=== PATIENT | female | born 1945 | race Caucasian/White ===

== ENCOUNTER 2017-02-26 13:14 | Emergency (ER) | payer MEDICARE, OTHER ==
[2017-02-26 13:24] VITALS: TEMP 98.8
[2017-02-26 13:44] LABS: Appearance,Urine Clear (Clear); Bilirubin,Urine Negative (Negative); Glucose,Urine (UA) Negative (Negative); Ketones,Urine Negative (Negative); Leukocyte Esterase,Urine Small (Negative); Nitrite,Urine Negative (Negative); PH, Urine 6.5 (5.0-8.0); Particle Count 1022; Protein,Urine Negative (Negative); RBC,Urine 1 /hpf (0-5); Squamous Epithelial Cell,Urine 5 /hpf (0-4); UA Billing (MACRO vs. MICRO) MICRO; Urobilinogen,Urine <2.0 mg/dL (<2.0); WBC,Urine 4 /hpf (0-5)
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
--- NOTE | 2017-02-26 14:41 | CT ---
EXAMINATION TYPE: CT brain adolfo wo con DATE OF EXAM: 02/26/2017 COMPARISON: June 03, 2014 HISTORY: Patient complains of repeated falls, headache, and neck pain. CT DLP: 1027.[address] of the brain was performed. The ventricles, basal cisterns and sulci overlying the cerebral convexities demonstrate mild enlarge ment. There is no evidence for intracranial hemorrhage or sulcal effacement. There is decreased attenuatio n about the periventricular white matter and deep white matter of both cerebral hemispheres, compatib le with chronic small vessel ischemia. No mass effects are seen. If symptoms persist consider MRI. Osseous calvarium is intact. Mucosal thickening sphenoid sinus. IMPRESSION: 1. Age related atrophic and chronic small vessel ischemic change without acute intracranial process seen at this time. CT Cervical Spine: Unenhanced CT of the cervical spine was performed with bone and soft tissue window settings submitted . Coronal and sagittal reconstruction is obtained. Type III odontoid fracture which extends through the odontoid and into the lateral masses of C2. No d isplacement evident at this time. No additional fractures identified. Anterior subluxation of C5 on C 6 appears to be chronic in nature and measures 3 mm. Moderate to severe multilevel degenerative disc space narrowing and spondylosis. IMPRESSION: 1. Type III odontoid fracture which extends through the odontoid and into the lateral masses of C2. No displacement evident at this time. Fracture appears relatively stable. Findings discussed with physician carpenter's assistant Alber Garcia via telephone at the time of exam completi on.
[2017-02-26] MEDS ORDERED: ONDANSETRON 4 MG/2 ML VIAL IVP STA (14:45)
[2017-02-26] MEDS ORDERED: HYDROmorphone 1 MG/ML 1 ML SYRINGE IVP STA (14:45)
[2017-02-26] MEDS ORDERED: HYDROmorphone 0.5 MG/0.5 ML SYRINGE IVP STA (15:22)
[2017-02-26 15:48] LABS: Basophils # (A) 0.1 k/uL (0-0.2); Basophils % (A) 1 %; CH 28.7; CHCM 33.6; Eosinophils # (A) 0.2 k/uL (0-0.7); Eosinophils % (A) 3 %; HDW 2.46; HGB 12.2 gm/dL (11.4-16.0); Luc # (Auto) 0.16; Luc % (Auto) 2; Lymphocytes # (A) 1.4 k/uL (1.0-4.8); Lymphocytes % (A) 19 %; MCH 28.3 pg (25.0-35.0); MCV 85.7 fL (80.0-100.0); Mean Platelet Volume 8.4; Monocytes # (A) 0.3 k/uL (0-1.0); Monocytes % (A) 4 %; Neutrophils # (A) 5.2 k/uL (1.3-7.7); Neutrophils % (A) 71 %; RBC 4.32 m/uL (3.80-5.40); RDW 13.2 % (11.5-15.5); WBC 7.3 k/uL (3.8-10.6); WBC (Perox) 7.17
[2017-02-26 15:52] LABS: ALT 38 U/L (9-52); AST 31 U/L (14-36); Alkaline Phosphatase 97 U/L (38-126); Anion Gap 8 mmol/L; Blood Urea Nitrogen 14 mg/dL (7-17); Calcium 9.3 mg/dL (8.4-10.2); Carbon Dioxide 25 mmol/L (22-30); Chloride 104 mmol/L (98-107); Glucose 93 mg/dL (74-99); Non-African American GFR(MDRD) >60 (>60 ml/min/1.73 sqM); Potassium 4.2 mmol/L (3.5-5.1); Sodium 137 mmol/L (137-145); Total Bilirubin 0.5 mg/dL (0.2-1.3); Total Protein 6.8 g/dL (6.3-8.2)
[2017-02-26 15:56] LABS: INR 1.1 (<1.2); Partial Thromboplastin Time 22.3 sec (22.0-30.0); Prothrombin Time 10.9 sec (9.0-12.0)
--- NOTE | 2017-02-26 16:16 | XR ---
EXAMINATION TYPE: XR Hip LT and AP Pelvis DATE OF EXAM: 02/26/2017 COMPARISON: CT abdomen pelvis 03/22/2016 HISTORY: Trauma and pain TECHNIQUE: AP view of the pelvis is obtained on 2 images. Two views of the left hip are obtained on 3 images. FINDINGS: There is hypertrophic change involving the left hip, subchondral geode formation, flattenin g the femoral head, marginal spurring, loss of joint space is again noted. Bone mineralization is red uced. Postop changes are noted in the lumbar spine. Calcified fibroid present in the right hemipelvis. Phle boliths also noted within the pelvis. IMPRESSION: Osteoarthritis, there may been prior osteonecrosis with femoral head collapse and seconda ry osteoarthritic change. Patient is rotated. Postop changes. Additional findings above.
--- NOTE | 2017-02-26 16:19 | XR ---
Lumbar spine HISTORY: Trauma and pain 3 views of of the lumbar spine correlated to CT abdomen pelvis 03/22/2016 Lumbar vertebral bodies show preserved height and alignment. Screws are present at the posterior [place] ents of L4-5. Loss of disc height present at L4-5 with vacuum phenomenon, marginal spurring. Calcifie d fibroid noted within the pelvis. L1 shows loss of height at the superior endplate, T12 also shows l oss of height superior endplate. T12 superior depression is an interval finding. Bone mineralization is reduced. Sclerosis present in the posterior elements of the lumbar spine. IMPRESSION: Compression fracture at L1 is likely stable, interval superior endplate compression fract ure T12 of indeterminate age. Osteopenia. Degenerative disc disease, facet arthropathy, postop change s.
--- NOTE | 2017-02-26 16:22 | XR ---
Right shoulder HISTORY: Trauma and pain 3 views of the right shoulder There is hypertrophic change at the glenohumeral joint. Acromion shows a lucency, questionable step-o ff. Right lung apex as visualized is normal. Facet arthropathy change is noted within the cervical sp ine. Bone mineralization is reduced which may limit sensitivity. IMPRESSION: Difficult to exclude an acromial fracture.
[2017-02-26 16:38] VITALS: BP 146/68; PULSE 56; RESP 16
== END 2017-02-26 17:00 | disposition other institution (70) ==
LOC: EC 13:14
DX: S12.100A Unspecified displaced fracture of second cervical vertebra, initial encounter for closed fracture (principal); S22.019A Unspecified fracture of first thoracic vertebra, initial encounter for closed fracture; S42.121A Displaced fracture of acromial process, right shoulder, initial encounter for closed fracture; M25.552 Pain in left hip; R00.1 Bradycardia, unspecified; I44.0 Atrioventricular block, first degree; J45.909 Unspecified asthma, uncomplicated; I25.10 Atherosclerotic heart disease of native coronary artery without angina pectoris; I50.9 Heart failure, unspecified; E78.5 Hyperlipidemia, unspecified; I11.0 Hypertensive heart disease with heart failure; M19.90 Unspecified osteoarthritis, unspecified site; Z95.5 Presence of coronary angioplasty implant and graft; Z88.0 Allergy status to penicillin; Z91.048 Other nonmedicinal substance allergy status; Z79.1 Long term (current) use of non-steroidal anti-inflammatories (NSAID); Z79.51 Long term (current) use of inhaled steroids; Z79.82 Long term (current) use of aspirin; Z79.899 Other long term (current) drug therapy; W10.9XXA Fall (on) (from) unspecified stairs and steps, initial encounter; Y93.01 Activity, walking, marching and hiking; Y92.019 Unspecified place in single-family (private) house as the place of occurrence of the external cause
CPT/HCPCS: 99285; 96374; 96375; 36415; 93005; 80053; 85025; 85610; 85730; 81001; 87086; 72100; 73502; 73030; 72125; 70450; J2405; J1170

== ENCOUNTER → 2020-07-19 | Outpatient (CLI) | payer MEDICARE, OTHER | END | disposition home or self-care (01) | LOC: LABWHC1 16:48 | PROVIDERS: ATTEND Internal Medicine | DX: Z20.822 Contact with and (suspected) exposure to COVID-19 (principal) | CPT/HCPCS: U0003; C9803 ==

== ENCOUNTER 2020-07-21 12:23 | Inpatient (IN) | payer MEDICARE, OTHER ==
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
--- NOTE | 2020-07-21 14:29 | XR ---
EXAMINATION TYPE: XR chest 2V DATE OF EXAM: 07/21/2020 COMPARISON: Chest x-ray CTA chest June 03, 2014. HISTORY: Difficulty in breathing. TECHNIQUE: Frontal and lateral views of the chest are obtained. FINDINGS: There is chronic parenchymal changes with new patchy left mid lung laterally and right bas ilar opacity. Persistent elevated and eventrated right hemidiaphragm with colonic interposition. The cardiac silhouette size is stable and within normal limits. Spine is straightened on lateral view wit h mild compression type fractures near thoracolumbar junction now present, some interval progression noted. IMPRESSION: Chronic changes with possible earlier faint acute infiltrate left mid lung laterally and right basilar region. Correlate clinically.
[2020-07-21 14:43] LABS: Basophils # (A) 0.1 k/uL (0-0.2); Basophils % (A) 1 %; Eosinophils # (A) 0.1 k/uL (0-0.7); Eosinophils % (A) 1 %; HCT 39.6 % (34.0-46.0); HGB 13.8 gm/dL (11.4-16.0); Lymphocytes # (A) 0.8 k/uL (1.0-4.8); Lymphocytes % (A) 12 %; MCH 29.4 pg (25.0-35.0); MCV 84.1 fL (80.0-100.0); Monocytes # (A) 0.4 k/uL (0-1.0); Monocytes % (A) 6 %; Neutrophils # (A) 5.3 k/uL (1.3-7.7); Neutrophils % (A) 79 %; Platelet Count 235 k/uL (150-450); RBC 4.71 m/uL (3.80-5.40); RDW 13.1 % (11.5-15.5); WBC 6.7 k/uL (3.8-10.6)
[2020-07-21 14:53] LABS: ALT 11 U/L (4-34); AST 29 U/L (14-36); African American GFR (CKD) >90 (>60 ml/min/1.73 sqM); Albumin 3.8 g/dL (3.5-5.0); Alkaline Phosphatase 106 U/L (38-126); Anion Gap 10 mmol/L; Blood Urea Nitrogen 13 mg/dL (7-17); Calcium 9.1 mg/dL (8.4-10.2); Carbon Dioxide 26 mmol/L (22-30); Chloride 104 mmol/L (98-107); Glucose 93 mg/dL (74-99); Non-African American GFR(CKD) 87 (>60 ml/min/1.73 sqM); Sodium 140 mmol/L (137-145); Total Bilirubin 0.6 mg/dL (0.2-1.3); Total Protein 7.1 g/dL (6.3-8.2)
[2020-07-21 15:00] LABS: Partial Thromboplastin Time 22.8 sec (22.0-30.0); Potassium 3.4 mmol/L (3.5-5.1); Prothrombin Time 10.4 sec (9.0-12.0)
--- NOTE | 2020-07-21 16:50 | CT ---
EXAMINATION TYPE: CT chest angio for PE DATE OF EXAM: 07/21/2020 COMPARISON: 06/03/2014 HISTORY: difficulty breathing CT DLP: 287.5 mGycm Automated exposure control for dose reduction was used. CONTRAST: Performed with IV Contrast, patient injected with 100 mL of Isovue 370. Images obtained from the thoracic inlet diaphragm with IV contrast. There are 3-D post processed imag es. There are patchy peripheral pulmonary bilateral infiltrates. There is some coalescent density in the right posterior lung base. Heart size is normal. There is no pericardial effusion. There is no pleura l effusion. There is no mediastinal adenopathy. There are no hilar masses. There is no thoracic aortic aneurysm o r dissection. There is normal contrast opacification of the pulmonary arteries. I see no filling defect. There is mild thoracolumbar dextroscoliosis. There is compression deformity of T12 and L1 vertebra up to 40%. The fractures appear old. The sternum is intact. The ribs appear intact. IMPRESSION: No evidence of pulmonary embolism. Bilateral patchy pulmonary airspace infiltrates consistent with pneumonia which are essentially new c ompared to old exam.
[2020-07-21] MEDS ORDERED: atenoloL 50 MG TAB PO STA (17:40)
[2020-07-21] MEDS ORDERED: DEXAMETHASONE SOD PHOSPHATE 10 MG/ML 1 ML VIAL IV STA (17:41)
[2020-07-21] MEDS ORDERED: SODIUM CHLORIDE 0.9% 1,000 ML IV ONE (20:05)
[2020-07-21] MEDS ORDERED: REMDESIVIR 200 MG in SODIUM CHLORIDE 0.9% 250 ML IVPB ONE (22:30)
[2020-07-21] MEDS: OXYBUTYNIN CHLORIDE 5 MG TAB PO SCH (22:56)
[2020-07-21] MEDS: DILTIAZEM ORAL 30 MG TAB PO SCH (22:56)
[2020-07-22] MEDS: DILTIAZEM ORAL 30 MG TAB PO SCH ×3 (07:37→23:47)
[2020-07-22] MEDS: dexAMETHasone 2 MG TAB PO SCH (07:38)
[2020-07-22] MEDS: OXYBUTYNIN CHLORIDE 5 MG TAB PO SCH ×3 (07:38→23:47)
[2020-07-22] MEDS: ENOXAPARIN 40 MG/0.4 ML SYRINGE SQ SCH (07:38)
[2020-07-22] MEDS: atenoloL 50 MG TAB PO SCH ×2 (07:38→21:30)
[2020-07-22] MEDS: PANTOPRAZOLE 40 MG TABLET PO SCH (07:38)
[2020-07-22] MEDS: IBUPROFEN 800 MG TAB PO PRN ×2 (08:42→21:30)
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
[2020-07-22] MEDS: REMDESIVIR 100 MG in SODIUM CHLORIDE 0.9% 250 ML IVPB SCH (21:29)
[2020-07-23] MEDS: PANTOPRAZOLE 40 MG TABLET PO SCH (07:12)
[2020-07-23] MEDS: OXYBUTYNIN CHLORIDE 5 MG TAB PO SCH ×3 (07:12→20:49)
[2020-07-23] MEDS: ENOXAPARIN 40 MG/0.4 ML SYRINGE SQ SCH (07:12)
[2020-07-23] MEDS: dexAMETHasone 2 MG TAB PO SCH (07:12)
[2020-07-23] MEDS: atenoloL 50 MG TAB PO SCH ×2 (07:12→20:42)
[2020-07-23] MEDS: DILTIAZEM ORAL 30 MG TAB PO SCH ×3 (07:13→20:42)
[2020-07-23 12:19] LABS: Basophils % (A) 0 %; Eosinophils % (A) 0 %; HGB 12.1 gm/dL (11.4-16.0); Lymphocytes # (A) 0.6 k/uL (1.0-4.8); Lymphocytes % (A) 8 %; MCH 28.5 pg (25.0-35.0); MCHC 33.7 g/dL (31.0-37.0); MCV 84.6 fL (80.0-100.0); Mean Platelet Volume 9.7; Monocytes # (A) 0.4 k/uL (0-1.0); Monocytes % (A) 5 %; Neutrophils # (A) 7.1 k/uL (1.3-7.7); Neutrophils % (A) 86 %; Platelet Count 264 k/uL (150-450); RBC 4.25 m/uL (3.80-5.40); RDW 13.1 % (11.5-15.5); WBC 8.3 k/uL (3.8-10.6)
[2020-07-23 12:36] LABS: African American GFR (CKD) >90 (>60 ml/min/1.73 sqM); Anion Gap 7 mmol/L; Blood Urea Nitrogen 23 mg/dL (7-17); Calcium 8.9 mg/dL (8.4-10.2); Carbon Dioxide 27 mmol/L (22-30); Chloride 104 mmol/L (98-107); Glucose 124 mg/dL (74-99); LDH 442 U/L (313-618); Non-African American GFR(CKD) 85 (>60 ml/min/1.73 sqM); Potassium 3.7 mmol/L (3.5-5.1); Sodium 138 mmol/L (137-145)
[2020-07-23 14:15] LABS: C Reactive Protein 1.5 mg/dL (<1.0)
--- NOTE | 2020-07-23 14:36 | CDI ---
Documentation Clarification Form Date: 07/23/2020 02:28:33 PM From: Flavia HurstMAIA dash, CCDS Admit Date: 07/21/2020 08:05:00 PM Patient Name: Luisana Cheng Visit Number: [id number] Discharge Date: ATTENTION: The Clinical Documentation Specialists (CDI) and [facility] Coding Staff appreciate your assistance in clarifying documentation. Please respond to the clarification below the line at the bottom and electronically sign. The CDI & [facility] Coding staff will review the response and follow-up if needed. Please note: Queries are made part of the Legal Health Record. If you have any questions, please contact the author of this message via ITS. Dr. Abdullahi Jeff: Asthma is documented 07/21 ED Note & 07/22 H/P Past Medical History. Per the 07/22 Pulmonary Consult: Bronchial asthma is documented without further specificity. Additional clarification regarding the type of asthma is requested. History/risk factors: Asthma, CAD status post stent, Hyperlipidemia, Hypertension, Osteoarthritis. Clinical Indicators: Presented to the ED on 07/21 with weakness & SOB. Patient was told she has COVID, unsure where she was tested. Admitted with Pneumonia due to COVID-19 virus. 07/21 VS: T 98.5, P 69, R 22, BP 157/92, PO 89 RA, BMI: 23.5 07/21 LAB: Lymph 0.8, D Dimer 2.4, K 3.4, Cl 104, CO2 26. 07/21 COVID POSITIVE 07/21 CXR: Chronic changes with possible earlier faint acute infiltrate left mid lung laterally and right basilar region. Correlate clinically. CT Chest: No evidence of pulmonary embolism. Bilateral patchy pulmonary airspace infiltrates consistent with pneumonia which are essentially new compared to old exam. Treatment 07/21: IV Decadron, IV fluid 1,000 mls @ 75 mls/hr q13H, IV Remdesivir, PO Hexadrol, Lovenox SQ Home meds: Cardizem, Tenormin, Zoloft, Protonix, Oxybutynin, Vit D2, Aspirin Please clarify the type and severity of asthma, if known: [ ] Extrinsic asthma [ ] without exacerbation [ ] Intrinsic asthma [ ] without exacerbation [ ] Mild intermittent asthma [ ] without exacerbation [ ] Mild persistent asthma [ ] without exacerbation [ ] Moderate persistent asthma [ ] without exacerbation [ ] Other, please specify [ x] Unable to determine (Template Last Revised: June 2020) MTDD
--- NOTE | 2020-07-23 15:44 | P.PN ---
Subjective Progress Note Date: 07/23/20 Principal diagnosis: COVID 19 75-year-old female patient presented emergency department because of shortness of breath and generalized weakness along with constitutional symptoms. The patient was recently diagnosed with infection. Her shortness of breath and fatigue was worse with ambulation. She thinks insistence and started approximately one week ago. The white cell count was 6.7 and the patient has lymphopenia. D-dimer is at 2.24. Potassium level was 3.4 with a BUN of 16 and a creatinine 0.6, liver function tests are within normal limits, troponins were negative. The COVID 19 testing was positive. The patient was found to be hypoxic and was placed on 3 L about 2 by nasal cannula. Chest x-ray shows acute infiltrative the left midlung area and right basilar area. The CT angiogram showed no evidence of any pulmonary embolism. There was bilateral patchy pul monary airspace disease consistent with pneumonia. The patient was started on Decadron in the emergency department. Pulmonary consultation was requested. On 07/23/2020 patient seen in follow-up on medical floor, she states she is coughing frequently, but appears to be in no acute distress, she remains at 2 L of oxygen pulse ox is 96%, she was started on Remdesivir, and today is day 3 of treatment. No nausea vomiting diarrhea, she is tolerating oral intake, today's labs have been reviewed, her lymphocyte count is still low at 0.6, the rest of the CBC was within normal limits, d-dimer is 2.42, electrolytes and renal profile were unremarkable. CRP is down to 1.5, and LDH is 442. Objective - Vital Signs Vital signs: Vital Signs Temp 98.8 F 07/23/20 13:56 Pulse 49 L 07/23/20 13:56 Resp 17 07/23/20 13:56 BP 139/74 07/23/20 13:56 Pulse Ox 96 07/23/20 13:56 Intake & Output 07/22/20 07/23/20 07/23/20 18:59 06:59 18:59 Intake Total 240 Balance 240 Weight 54.5 kg Intake: Oral 240 Other: Voiding Method Toilet Toilet Toilet Diaper Diaper Diaper Incontinent Incontinent Incontinent # Voids 2 2 - Exam GENERAL EXAM: Alert, very pleasant, 75-year-old white female, 2 L of oxygen pulse oximetry 96% comfortable in no apparent distress. HEAD: Normocephalic/atraumatic. EYES: Normal reaction of pupils, equal size. Conjunctiva pink, sclera white. NOSE: Clear with pink turbinates. THROAT: No erythema or exudates. NECK: No masses, no JVD, no thyroid enlargement, no adenopathy. CHEST: No chest wall deformity. Symmetrical expansion. LUNGS: Equal air entry with bibasilar crackles CVS: Regular rate and rhythm, normal S1 and S2, no gallops, no murmurs, no rubs ABDOMEN: Soft, nontender. No hepatosplenomegaly, normal bowel sounds, no guarding or rigidity. EXTREMITIES: No clubbing, no edema, no cyanosis, 2+ pulses and upper and lower extremities. MUSCULOSKELETAL: Muscle strength and tone normal. SPINE: No scoliosis or deformity SKIN: No rashes CENTRAL NERVOUS SYSTEM: Alert and oriented -3. No focal deficits, tone is normal in all 4 extremities. PSYCHIATRIC: Alert and oriented -3. Appropriate affect. Intact judgment and insight. - Labs CBC & Chem 7: 07/23/20 11:26 07/23/20 11:26 Labs: Abnormal Lab Results - Last 24 Hours (Table) 07/23/20 07/23/20 07/23/20 Range/Units 11:26 11:26 11:26 Lymphocytes # 0.6 L (1.0-4.8) k/uL D-Dimer 2.42 H (<0.60) mg/L FEU BUN 23 H (7-17) mg/dL Glucose 124 H (74-99) mg/dL C-Reactive Protein 1.5 H (<1.0) mg/dL Assessment and Plan Plan: Assessment: 1 acute COVID 19 related pneumonia. Symptoms started approximately a week ago and the patient tested positive on 07/19/2020 on 07/21/2020. Currently the patient is hospitalized for worsening shortness of breath. Was started on Remdesivir treatment on 07/21/2020 2 acute hypoxic respiratory failure secondary to above currently on 3 L of oxygen by nasal cannula 3 coronary artery disease with previous history of cardiac catheterization coronary stenting 4 hypertension 5 hyperlipidemia 6 bronchial asthma 7 hiatal hernia 8 stress urinary incontinence 9 osteoarthritis Plan: Continue current medical treatment, continue Remdesivir, continue current dose Decadron and lactic dose of Lovenox, remains on 2 L of oxygen, still has frequent coughing but no worsening dyspnea, we'll continue to monitor for any signs of worsening dyspnea or hypoxemia. I performed a history & physical examination of the patient and discussed their management with my nurse practitioner, Angela Pires. I reviewed the nurse practitioner's note and agree with the documented findings and plan of care. Lung sounds are positive for diminished breath sounds with bibasilar crackles The findings and the impression was discussed with the patient. I attest to the documentation by the nurse practitioner. Time with Patient: Less than 30
[2020-07-23] MEDS ORDERED: NITROGLYCERIN SL TABS 0.4 MG TAB SUBLINGUAL STA (20:42)
[2020-07-23] MEDS: REMDESIVIR 100 MG in SODIUM CHLORIDE 0.9% 250 ML IVPB SCH (20:49)
--- NOTE | 2020-07-23 22:25 | P.PN ---
Subjective Progress Note Date: 07/23/20 Principal diagnosis: Acute hypoxic respiratory failure secondary to Covid pneumonia Patient is a 75-year-old female with a known history of coronary artery disease with stent placement, hypertension, hyperlipidemia, osteoarthritis and history of back surgery presents to ER with complaints of nausea, vomiting and episodes of diarrhea and worsening shortness of breath and generalized weakness for the past 1 week. Patient denied any complaints of fever or chills. No chest pain. Vitals on admission blood pressure 157/92 pulse 69 and pulse ox 89 % impro vement Chest x-ray showed chronic use possible ileus failed acute infiltrate left mid lung laterally and right basilar wheezing. Correlate clinically. Next and CT angiogram showed no evidence of PE. Bilateral patchy pulmonary infiltrates consistent with pneumonia which are essentially new compared to old exam. Laboratory data show d-dimer 2.24, potassium3.4 and COVID-19 PCR detected. 07/23/2020 Patient is currently lying in bed comfortable. Breathing status is better today. Does have cough without sputum production. Currently being continued on remdesivir day 3, dexamethasone and Lovenox. Denied any complaints of nausea vomiting or diarrhea. Currently requiring oxygen 2 L via nasal cannula. Laboratory data showed D-dimer is 2.42 CRP 1.5 and LDH 442. Pulmonary is following. Current medications reviewed. Objective - Vital Signs Vital signs: Vital Signs Temp 98.8 F 07/23/20 13:56 Pulse 49 L 07/23/20 13:56 Resp 17 07/23/20 13:56 BP 139/74 07/23/20 13:56 Pulse Ox 96 07/23/20 13:56 Intake & Output 07/22/20 07/23/20 07/23/20 18:59 06:59 18:59 Intake Total 240 Balance 240 Weight 54.5 kg Intake: Oral 240 Other: Voiding Method Toilet Toilet Toilet Diaper Diaper Diaper Incontinent Incontinent Incontinent # Voids 2 2 - Exam PHYSICAL EXAMINATION: Patient is lying in the bed comfortably, no acute distress, awake alert and oriented.. HEENT: Normocephalic. Neck is supple. Pupils reactive. Nostrils clear. Oral cavity is moist. Ears reveal no drainage. Neck reveals no JVD, carotid bruits, or thyromegaly. CHEST EXAMINATION: Trachea is central. Symmetrical expansion. Lung anguiano clear to auscultation and percussion. CARDIAC: Normal S1, S2 with no gallops. No murmurs ABDOMEN: Soft. Bowel sounds normal. No organomegaly. No abdominal bruits. Extremities: reveal no edema. No clubbing or cyanosis Neurologically awake, alert, oriented x3 with well-coordinated movements. No focal deficits noted Skin: No rash or skin lesions. Psychiatric: Coperative. Nonsuicidal Musculoskeletal: No joint swelling or deformity. Normal range of motion. - Labs CBC & Chem 7: 07/23/20 11:26 07/23/20 11:26 Labs: Abnormal Lab Results - Last 24 Hours (Table) 07/23/20 07/23/20 07/23/20 Range/Units 11:26 11: 11:26 Lymphocytes # 0.6 L (1.0-4.8) k/uL D-Dimer 2.42 H (<0.60) mg/L FEU BUN 23 H (7-17) mg/dL Glucose 124 H (74-99) mg/dL C-Reactive Protein 1.5 H (<1.0) mg/dL Assessment and Plan Assessment: Acute COVID-19 pneumonia. Patient has been having symptoms for the past 1 week Acute hypoxic respiratory failure currently requiring 3 approximately another cannula Hypokalemia Coronary artery disease with history of stent placement Hypertension Hyperlipidemia Osteoarthritis History of bronchial asthma not in exacerbation DVT prophylaxis with Lovenox Plan: Patient will be continued on oxygen supplementation and was started on dexamethasone 6 mg daily and Lovenox subcu daily. Patient was started on Remdesivir coarse. Pulmonary is on board. Patient is currently requiring 2 L oxygen via nasal cannula. Gradually titrate down to room air. Monitor for any worsening symptoms. Continue to follow closely and prognosis is guarded at this time. Time with Patient: Greater than 30
[2020-07-24] MEDS: atenoloL 50 MG TAB PO SCH (07:15)
[2020-07-24] MEDS: DILTIAZEM ORAL 30 MG TAB PO SCH (07:16)
[2020-07-24] MEDS: ENOXAPARIN 40 MG/0.4 ML SYRINGE SQ SCH (07:30)
[2020-07-24] MEDS: PANTOPRAZOLE 40 MG TABLET PO SCH (07:31)
[2020-07-24] MEDS: OXYBUTYNIN CHLORIDE 5 MG TAB PO SCH ×3 (07:31→23:16)
[2020-07-24] MEDS: dexAMETHasone 2 MG TAB PO SCH (07:31)
[2020-07-24 08:52] LABS: African American GFR (CKD) >90 (>60 ml/min/1.73 sqM); Anion Gap 9 mmol/L; Blood Urea Nitrogen 24 mg/dL (7-17); C Reactive Protein 1.1 mg/dL (<1.0); Calcium 8.8 mg/dL (8.4-10.2); Carbon Dioxide 26 mmol/L (22-30); Chloride 102 mmol/L (98-107); Glucose 105 mg/dL (74-99); LDH 530 U/L (313-618); Non-African American GFR(CKD) 88 (>60 ml/min/1.73 sqM); Potassium 3.5 mmol/L (3.5-5.1); Sodium 137 mmol/L (137-145)
[2020-07-24] MEDS: ASPIRIN 81 MG PO SCH (11:18)
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
--- NOTE | 2020-07-24 14:05 | P.PN ---
Subjective Progress Note Date: 07/24/20 75-year-old female patient presented emergency department because of shortness of breath and generalized weakness along with constitutional symptoms. The patient was recently diagnosed with infection. Her shortness of breath and fatigue was worse with ambulation. She thinks insistence and started appr oximately one week ago. The white cell count was 6.7 and the patient has lymphopenia. D-dimer is at 2.24. Potassium level was 3.4 with a BUN of 16 and a creatinine 0.6, liver function tests are within normal limits, troponins were negative. The COVID 19 testing was positive. The patient was found to be hypoxic and was placed on 3 L about 2 by nasal cannula. Chest x-ray shows acute infiltrative the left midlung area and right basilar area. The CT angiogram showed no evidence of any pulmonary embolism. There was bilateral patchy pulmonary airspace disease consistent with pneumonia. The patient was started on Decadron in the emergency department. Pulmonary consultation was requested. On 07/23/2020 patient seen in follow-up on medical floor, she states she is coughing frequently, but appears to be in no acute distress, she remains at 2 L of oxygen pulse ox is 96%, she was started on Remdesivir, and today is day 3 of treatment. No nausea vomiting diarrhea, she is tolerating oral intake, today's labs have been reviewed, her lymphocyte count is still low at 0.6, the rest of the CBC was within normal limits, d-dimer is 2.42, electrolytes and renal profile were unremarkable. CRP is down to 1.5, and LDH is 442. 07/24/2020, patient is stable and has no new complaints. The patient is still on oxygen at 2 L per minute nasal cannula. She has normal breathing and her breathing is nonlabored. She has occasional cough. She is afebrile. The rest of the vitals are all stable. The patient also has a normal renal function. Normal electrolytes. The patient was seen earlier by cardiology for some chest pain that was labeled to be nonspecific. An acute coronary event was ruled out. Echocardiogram was older. The patient was taken off the Cardizem. The patient is on Decadron 6 mg by mouth daily. The patient is also completing a course of Remdesivir Objective - Vital Signs Vital signs: Vital Signs Temp 97.6 F 07/24/20 10:00 Pulse 58 L 07/24/20 10:00 Resp 18 07/24/20 10:00 BP 133/73 07/24/20 10:00 Pulse Ox 92 L 07/24/20 10:00 Intake & Output 07/23/20 07/24/20 07/24/20 18:59 06:59 18:59 Intake Total 240 600 Balance 240 600 Weight 50.8 kg Intake: Oral 240 600 Other: Voiding Method Toilet Toilet Diaper Diaper Incontinent Incontinent # Voids 2 1 - Exam GENERAL EXAM: Alert, very pleasant, 75-year-old white female, 2 L of oxygen pulse oximetry 96% comfortable in no apparent distress. HEAD: Normocephalic/atraumatic. EYES: Normal reaction of pupils, equal size. Conjunctiva pink, sclera white. NOSE: Clear with pink turbinates. THROAT: No erythema or exudates. NECK: No masses, no JVD, no thyroid enlargement, no adenopathy. CHEST: No chest wall deformity. Symmetrical expansion. LUNGS: Equal air entry with bibasilar crackles CVS: Regular rate and rhythm, normal S1 and S2, no gallops, no murmurs, no rubs ABDOMEN: Soft, nontender. No hepatosplenomegaly, normal bowel sounds, no guarding or rigidity. EXTREMITIES: No clubbing, no edema, no cyanosis, 2+ pulses and upper and lower extremities. MUSCULOSKELETAL: Muscle strength and tone normal. SPINE: No scoliosis or deformity SKIN: No rashes CENTRAL NERVOUS SYSTEM: Alert and oriented -3. No focal deficits, tone is normal in all 4 extremities. PSYCHIATRIC: Alert and oriented -3. Appropriate affect. Intact judgment and insight. - Labs CBC & Chem 7: 07/23/20 11:26 07/24/20 07:09 Labs: Abnormal Lab Results - Last 24 Hours (Table) 07/23/20 07/24/20 Range/Units 11:26 07:09 BUN 24 H (7-17) mg/dL Glucose 105 H (74-99) mg/dL C-Reactive Protein 1.5 H 1.1 H (<1.0) mg/dL Assessment and Plan Plan: 1 acute COVID 19 related pneumonia. Symptoms started approximately a week ago and the patient tested positive on 07/19/2020 on 07/21/2020. Currently the patient is hospitalized for worsening shortness of breath. Clinically stable and the patient is currently undergoing treatment with Decadron and Remdesivir 2 acute hypoxic respiratory failure secondary to above currently on 2 L of oxygen by nasal cannula 3 coronary artery disease with previous history of cardiac catheterization coronary stenting 4 hypertension 5 hyperlipidemia 6 bronchial asthma 7 hiatal hernia 8 stress urinary incontinence 9 osteoarthritis Plan Titrate FiO2 to maintain saturation above 90% currently on 2 L Continue Decadron 6 mg IV every 24 hours Remdesivir day #3 of treatment Lovenox 40 mg subcu every 24 hours Incentive spirometer Cardiology input is appreciated Awaiting echocardiogram We'll continue to follow
--- NOTE | 2020-07-24 14:38 | ECHOF ---
Referral Reason:cp, covid MEASUREMENTS -------- HEIGHT: 152.4 cm WEIGHT: 50.3 kg BP: RVIDd: 2.8 cm (< 3.3) IVSd: 1.1 cm (0.6 - 1.1) LVIDd: 3.7 cm (3.9 - 5.3) LVPWd: 1.1 cm (0.6 - 1.1) IVSs: 1.2 cm LVIDs: 1.5 cm LVPWs: 0.9 cm Ao Diam: 3.2 cm (2.0 - 3.7) AV Cusp: 1.5 cm (1.5 - 2.6) LA Diam: 3.5 cm (2.7 - 3.8) MV E Cristobal: 0.64 m/s MV DecT: 130 ms MV A Cristobal: 0.53 m/s MV E/A Ratio: 1.73 RAP: 5.00 mmHg RVSP: 29.55 mmHg FINDINGS -------- Sinus rhythm. This was a technically adequate study. Pt is Covid positive. The left ventricular size is normal. Left ventricular wall thickness is normal. Overall left vent ricular systolic function is low-normal with, an EF between 50 - 55 %. Anterseptal Hypokinesis The right ventricle is normal in size. The left atrial size is normal. The right atrial size is normal. There is mild aortic valve sclerosis. There is mild aortic regurgitation. The mitral valve is normal. Mild mitral regurgitation is present. Mild tricuspid regurgitation present. Right ventricular systolic pressure is normal at < 35 mmHg. The pulmonic valve was not well visualized. Trace/mild (physiologic) pulmonic regurgitation. The aortic root size is normal. There is no pericardial effusion. CONCLUSIONS -------- 1. Pt is Covid positive. 2. Left ventricular wall thickness is normal. 3. Overall left ventricular systolic function is low-normal with, an EF between 50 - 55 %. 4. Anterseptal Hypokinesis 5. The left atrial size is normal. 6. There is mild aortic regurgitation. 7. Mild mitral regurgitation is present. 8. Mild tricuspid regurgitation present. 9. There is no pericardial effusion. DRILLING RIG OPERATOR: Elsy López RDCS
[2020-07-24] MEDS ORDERED: NITROGLYCERIN SL TABS 0.4 MG TAB SUBLINGUAL ONE (18:11)
[2020-07-24] MEDS: REMDESIVIR 100 MG in SODIUM CHLORIDE 0.9% 250 ML IVPB SCH (19:35)
[2020-07-24] MEDS: ONDANSETRON 4 MG/2 ML VIAL IVP PRN (19:35)
[2020-07-24] MEDS: ATORVASTATIN 40 MG TAB PO SCH (23:16)
[2020-07-25] MEDS: ONDANSETRON 4 MG/2 ML VIAL IVP PRN ×3 (05:56→20:05)
[2020-07-25] MEDS: OXYBUTYNIN CHLORIDE 5 MG TAB PO SCH ×3 (07:23→22:56)
[2020-07-25] MEDS: ENOXAPARIN 40 MG/0.4 ML SYRINGE SQ SCH (07:23)
[2020-07-25] MEDS: ASPIRIN 81 MG PO SCH (07:23)
[2020-07-25] MEDS: PANTOPRAZOLE 40 MG TABLET PO SCH (07:23)
[2020-07-25] MEDS: dexAMETHasone 2 MG TAB PO SCH (07:23)
[2020-07-25] MEDS ORDERED: ERGOCALCIFEROL 1,250 MCG (50,000 IU) CAPSULE PO SCH (09:00)
[2020-07-25] MEDS: amLODIPine 5 MG TAB PO SCH (09:31)
--- NOTE | 2020-07-25 12:14 | P.PN ---
Subjective HISTORY OF PRESENTING ILLNESS This is a pleasant 75-year-old female past medical history significant for coronary artery disease status post PCI to the LAD exact details unavailable, hypertension, asthma and dyslipidemia. She does not follow regularly in the office with a guitar repair technician. She continues to have intermittent episodes of chest pain worse with cough and breathing. Telemetry tracings indicate ongoing bradycardia as low as 30s. Blood pressure 122/86 heart rate 55. TSH 1.67. Echocardiogram obtained reveals preserved LV systolic function with ejection fraction 50-55%, anteroseptal hypokinesia, mild MR and mild TR. PHYSICAL EXAMINATION CONSTITUTIONAL: No apparent distress. HEENT: Head is normocephalic. Pupils are equal, round. Sclerae anicteric. Mucous membranes of the mouth are moist. No JVD. No carotid bruit. CHEST EXAMINATION: Lungs are clear to auscultation. No chest wall tenderness is noted on palpation or with deep breathing. HEART EXAMINATION: Regular rate and rhythm. S1, S2 heard. No murmurs, gallops or rub. EXTREMITIES: 2+ peripheral pulses, no lower extremity edema and no calf tenderness. ASSESSMENT Chest pain COVID-19 Sinus bradycardia, asymptomatic Coronary artery disease status post PCI, exact details unavailable Hypertension Dyslipidemia Asthma PLAN Discontinue atenolol. Add amlodipine 5 mg daily. Ongoing telemetry monitoring. Nurse Practitioner note has been reviewed, I agree with a documented findings and plan of care. Patient was seen and examined. Objective - Vital Signs Vital signs: Vital Signs Temp 97.6 F 07/25/20 10:00 Pulse 55 L 07/25/20 10:00 Resp 18 07/25/20 10:00 BP 122/86 07/25/20 10:00 Pulse Ox 91 L 07/25/20 10:00 Intake & Output 07/24/20 07/25/20 07/25/20 18:59 06:59 18:59 Intake Total 900 350 Balance 900 350 Weight 50.8 kg Intake: Oral 900 350 Other: Voiding Method Toilet Diaper Incontinent # Voids 1 2 # Bowel Movements 1 - Labs CBC & Chem 7: 07/23/20 11:26 07/24/20 07:09
--- NOTE | 2020-07-25 13:42 | P.PN ---
Subjective Progress Note Date: 07/25/20 75-year-old female patient presented emergency department because of shortness of breath and generalized weakness along with constitutional symptoms. The patient was recently diagnosed with infection. Her shortness of breath and fatigue was worse with ambulation. She thinks insistence and started appr oximately one week ago. The white cell count was 6.7 and the patient has lymphopenia. D-dimer is at 2.24. Potassium level was 3.4 with a BUN of 16 and a creatinine 0.6, liver function tests are within normal limits, troponins were negative. The COVID 19 testing was positive. The patient was found to be hypoxic and was placed on 3 L about 2 by nasal cannula. Chest x-ray shows acute infiltrative the left midlung area and right basilar area. The CT angiogram showed no evidence of any pulmonary embolism. There was bilateral patchy pulmonary airspace disease consistent with pneumonia. The patient was started on Decadron in the emergency department. Pulmonary consultation was requested. On 07/23/2020 patient seen in follow-up on medical floor, she states she is coughing frequently, but appears to be in no acute distress, she remains at 2 L of oxygen pulse ox is 96%, she was started on Remdesivir, and today is day 3 of treatment. No nausea vomiting diarrhea, she is tolerating oral intake, today's labs have been reviewed, her lymphocyte count is still low at 0.6, the rest of the CBC was within normal limits, d-dimer is 2.42, electrolytes and renal profile were unremarkable. CRP is down to 1.5, and LDH is 442. 07/24/2020, patient is stable and has no new complaints. The patient is still on oxygen at 2 L per minute nasal cannula. She has normal breathing and her breathing is nonlabored. She has occasional cough. She is afebrile. The rest of the vitals are all stable. The patient also has a normal renal function. Normal electrolytes. The patient was seen earlier by cardiology for some chest pain that was labeled to be nonspecific. An acute coronary event was ruled out. Echocardiogram was older. The patient was taken off the Cardizem. The patient is on Decadron 6 mg by mouth daily. The patient is also completing a course of Remdesivir 07/25/2020 the patient is on oxygen at 3 L with a pulse of 71%. Breathing is nonlabored that she is on the phone laying comfortably in bed without any major difficulties in breathing. The patient's is clear of any chest pain for now. Echocardiogram was done and the patient was found to have a normal ejection fra ction. She remains on Decadron. She remains on Remdesivir this will be day #4 of treatment. Objective - Vital Signs Vital signs: Vital Signs Temp 97.6 F 07/25/20 10:00 Pulse 55 L 07/25/20 10:00 Resp 18 07/25/20 10:00 BP 122/86 07/25/20 10:00 Pulse Ox 91 L 07/25/20 10:00 Intake & Output 07/24/20 07/25/20 07/25/20 18:59 06:59 18:59 Intake Total 900 350 Balance 900 350 Weight 50.8 kg Intake: Oral 900 350 Other: Voiding Method Toilet Diaper Incontinent # Voids 1 2 # Bowel Movements 1 - Exam GENERAL EXAM: Alert, very pleasant, 75-year-old white female, 3 L of oxygen pulse oximetry 96% comfortable in no apparent distress. HEAD: Normocephalic/atraumatic. EYES: Normal reaction of pupils, equal size. Conjunctiva pink, sclera white. NOSE: Clear with pink turbinates. THROAT: No erythema or exudates. NECK: No masses, no JVD, no thyroid enlargement, no adenopathy. CHEST: No chest wall deformity. Symmetrical expansion. LUNGS: Equal air entry with bibasilar crackles CVS: Regular rate and rhythm, normal S1 and S2, no gallops, no murmurs, no rubs ABDOMEN: Soft, nontender. No hepatosplenomegaly, normal bowel sounds, no guarding or rigidity. EXTREMITIES: No clubbing, no edema, no cyanosis, 2+ pulses and upper and lower extremities. MUSCULOSKELETAL: Muscle strength and tone normal. SPINE: No scoliosis or deformity SKIN: No rashes CENTRAL NERVOUS SYSTEM: Alert and oriented -3. No focal deficits, tone is normal in all 4 extremities. PSYCHIATRIC: Alert and oriented -3. Appropriate affect. Intact judgment and insight. - Labs CBC & Chem 7: 07/23/20 11:26 07/24/20 07:09 Assessment and Plan Plan: 1 acute COVID 19 related pneumonia. Symptoms started approximately a week ago and the patient tested positive on 07/19/2020 on 07/21/2020. Currently the patient is hospitalized for worsening shortness of breath. Clinically stable and the patient is currently undergoing treatment with Decadron and Remdesivir 2 acute hypoxic respiratory failure secondary to above currently on 2 L of oxygen by nasal cannula 3 coronary artery disease with previous history of cardiac catheterization coronary stenting 4 hypertension 5 hyperlipidemia 6 bronchial asthma 7 hiatal hernia 8 stress urinary incontinence 9 osteoarthritis Plan Titrate FiO2 to maintain saturation above 90% currently on 2-3 L Continue Decadron 6 mg IV every 24 hours Remdesivir day #5 of treatment Lovenox 40 mg subcu every 24 hours Incentive spirometer Echo is normal. My recommendation is to discharge this patient home tomorrow on oxygen. She does have a good social support system and she lives with her sister and shameka lawrence. Her condition has remained stable. She is probably going to require oxygen for quite some time and the weaning of the oxygen can be done on outpatient basis. I'm going to sign off the case and the patient will be seen on an as-needed basis only
[2020-07-25] MEDS: BISMUTH SUBSALICYLATE 4,192 MG/240 ML BOTTLE PO PRN ×2 (16:06→20:59)
[2020-07-25] MEDS: METOCLOPRAMIDE 5 MG/ML 2 ML VIAL IVP PRN (22:44)
[2020-07-25] MEDS: REMDESIVIR 100 MG in SODIUM CHLORIDE 0.9% 250 ML IVPB SCH (22:45)
[2020-07-25] MEDS: ATORVASTATIN 40 MG TAB PO SCH (22:56)
[2020-07-26] MEDS: METOCLOPRAMIDE 5 MG/ML 2 ML VIAL IVP PRN ×3 (05:10→20:16)
[2020-07-26] MEDS: ONDANSETRON 4 MG/2 ML VIAL IVP PRN ×3 (07:29→23:00)
[2020-07-26] MEDS: OXYBUTYNIN CHLORIDE 5 MG TAB PO SCH ×3 (08:29→20:14)
[2020-07-26] MEDS: amLODIPine 5 MG TAB PO SCH (08:29)
[2020-07-26] MEDS: PANTOPRAZOLE 40 MG TABLET PO SCH (08:29)
[2020-07-26] MEDS: ENOXAPARIN 40 MG/0.4 ML SYRINGE SQ SCH (08:29)
[2020-07-26] MEDS: ASPIRIN 81 MG PO SCH (08:29)
[2020-07-26] MEDS: dexAMETHasone 2 MG TAB PO SCH (08:29)
--- NOTE | 2020-07-26 10:41 | P.PN ---
Subjective HISTORY OF PRESENTING ILLNESS This is a pleasant 75-year-old female past medical history significant for coronary artery disease status post PCI to the LAD exact details unavailable, hypertension, asthma and dyslipidemia. She does not follow regularly in the office with a jtac. She continues to have intermittent episodes of chest pain worse with cough and breathing. Telemetry tracings indicate ongoing bradycardia as low as 30s. Blood pressure 122/86 heart rate 55. TSH 1.67. Echocardiogram obtained reveals preserved LV systolic function with ejection fraction 50-55%, anteroseptal hypokinesia, mild MR and mild TR. 07/26/2020 Pt is seen sitting up in bed. She denies chest pain or dizziness. Telemetry tracings indicate her heart rates are up in the 60's with no further significant bradycardia noted. Blood pressure 164/81. PHYSICAL EXAMINATION CONSTITUTIONAL: No apparent distress. ASSESSMENT Chest pain COVID-19 Sinus bradycardia, asymptomatic Coronary artery disease status post PCI, exact details unavailable Hypertension Dyslipidemia Asthma PLAN From a cardiac perspective she is stable. No further bradycardia on current medical regimen. Follow up with Dr. Jones upon discharge. We will follow along as needed, please call with further questions or concerns. Nurse Practitioner note has been reviewed, I agree with a documented findings and plan of care. Patient was seen and examined. Objective - Vital Signs Vital signs: Vital Signs Temp 99.1 F 07/26/20 10:00 Pulse 71 07/26/20 10:00 Resp 20 07/26/20 10:00 BP 145/84 07/26/20 10:00 Pulse Ox 94 L 07/26/20 10:00 Intake & Output 07/25/20 07/26/20 07/26/20 18:59 06:59 18:59 Intake Total 1050 Balance 1050 Weight 56 kg Intake: Oral 1050 Other: Voiding Method Toilet Toilet Diaper Diaper Incontinent Incontinent # Voids 1 1 - Labs CBC & Chem 7: 07/23/20 11:26 07/24/20 07:09
[2020-07-26] MEDS: BISMUTH SUBSALICYLATE 4,192 MG/240 ML BOTTLE PO PRN (14:55)
[2020-07-26] MEDS: SODIUM CHLORIDE 0.9% 1,000 ML IV SCH (17:16)
[2020-07-26 17:53] LABS: Basophils # (A) 0.1 k/uL (0-0.2); Basophils % (A) 1 %; Eosinophils % (A) 0 %; HCT 47.5 % (34.0-46.0); Lymphocytes % (A) 6 %; MCH 27.3 pg (25.0-35.0); MCHC 31.9 g/dL (31.0-37.0); MCV 85.3 fL (80.0-100.0); Mean Platelet Volume 9.6; Monocytes # (A) 1.2 k/uL (0-1.0); Monocytes % (A) 7 %; Neutrophils # (A) 15.1 k/uL (1.3-7.7); Neutrophils % (A) 86 %; Platelet Count 404 k/uL (150-450); RBC 5.56 m/uL (3.80-5.40); RDW 13.6 % (11.5-15.5); WBC 17.6 k/uL (3.8-10.6)
[2020-07-26 17:54] LABS: HGB 15.2 gm/dL (11.4-16.0)
[2020-07-26] MEDS: ATORVASTATIN 40 MG TAB PO SCH (20:13)
[2020-07-26] MEDS: PANTOPRAZOLE 40 MG/10 ML VIAL IVP SCH (20:16)
--- NOTE | 2020-07-26 22:43 | P.PN ---
Subjective Progress Note Date: 07/24/20 Principal diagnosis: Acute hypoxic respiratory failure secondary to Covid pneumonia Patient is a 75-year-old female with a known history of coronary artery disease with stent placement, hypertension, hyperlipidemia, osteoarthritis and history of back surgery presents to ER with complaints of nausea, vomiting and episodes of diarrhea and worsening shortness of breath and generalized weakness for the past 1 week. Patient denied any complaints of fever or chills. No chest pain. Vitals on admission blood pressure 157/92 pulse 69 and pulse ox 89 % impro vement Chest x-ray showed chronic use possible ileus failed acute infiltrate left mid lung laterally and right basilar wheezing. Correlate clinically. Next and CT angiogram showed no evidence of PE. Bilateral patchy pulmonary infiltrates consistent with pneumonia which are essentially new compared to old exam. Laboratory data show d-dimer 2.24, potassium3.4 and COVID-19 PCR detected. 07/23/2020 Patient is currently lying in bed comfortable. Breathing status is better today. Does have cough without sputum production. Currently being continued on remdesivir day 3, dexamethasone and Lovenox. Denied any complaints of nausea vomiting or diarrhea. Currently requiring oxygen 2 L via nasal cannula. Laboratory data showed D-dimer is 2.42 CRP 1.5 and LDH 442. Pulmonary is following. 07/24/2020 Patient is currently lying in the bed. Awake alert. Still complains of nausea and no episodes of vomiting. Requiring oxygen at 2 L via nasal cannula. Patient has been afebrile. Cough without sputum production minimal. Patient is being continued dexamethasone and Lovenox. Patient was bradycardic overnight. Seen by cardiology and discontinued Cardizem. No headache or dizziness. Patient is somewhat poor historian otherwise. Pulmonary and cardiology is on board. Current medications reviewed. Objective - Vital Signs Vital signs: Vital Signs Temp 96.9 F L 07/24/20 14:00 Pulse 70 07/24/20 14:00 Resp 18 07/24/20 14:00 BP 157/75 07/24/20 14:00 Pulse Ox 92 L 07/24/20 14:00 Intake & Output 07/23/20 07/24/20 07/24/20 18:59 06:59 18:59 Intake Total 240 600 Balance 240 600 Weight 50.8 kg Intake: Oral 240 600 Other: Voiding Method Toilet Toilet Diaper Diaper Incontinent Incontinent # Voids 2 1 1 # Bowel Movements 1 - Exam PHYSICAL EXAMINATION: Patient is lying in the bed comfortably, no acute distress, awake alert and oriented.. HEENT: Normocephalic. Neck is supple. Pupils reactive. Nostrils clear. Oral cavity is moist. Ears reveal no drainage. Neck reveals no JVD, carotid bruits, or thyromegaly. CHEST EXAMINATION: Trachea is central. Symmetrical expansion. Lung anguiano clear to auscultation and percussion. CARDIAC: Normal S1, S2 with no gallops. No murmurs ABDOMEN: Soft. Bowel sounds normal. No organomegaly. No abdominal bruits. Extremities: reveal no edema. No clubbing or cyanosis Neurologically awake, alert, oriented x2-3 with well-coordinated movements. No focal deficits noted Skin: No rash or skin lesions. Psychiatric: Coperative. Musculoskeletal: No joint swelling or deformity. Normal range of motion. - Labs CBC & Chem 7: 07/26/20 17:26 07/24/20 07:09 Labs: Abnormal Lab Results - Last 24 Hours (Table) 07/24/20 Range/Units 07:09 BUN 24 H (7-17) mg/dL Glucose 105 H (74-99) mg/dL C-Reactive Protein 1.1 H (<1.0) mg/dL Assessment and Plan Assessment: Acute COVID-19 pneumonia. Patient has been having symptoms for the past 1 week Acute hypoxic respiratory failure currently requiring 3 oxygen via cannula Sinus bradycardia. Hypokalemia Coronary artery disease with history of stent placement Hypertension Hyperlipidemia Osteoarthritis History of bronchial asthma not in exacerbation DVT prophylaxis with Lovenox Plan: Patient will be continued on oxygen supplementation and was started on dexamethasone 6 mg daily and Lovenox subcu daily. Patient completed Remdesivir coarse. Pulmonary is on board. Patient is currently requiring 2 L oxygen via nasal cannula. Gradually titrate down to room air. Monitor for any worsening symptoms. Continue to follow closely and prognosis is guarded at this time. Time with Patient: Greater than 30
--- NOTE | 2020-07-26 22:49 | P.PN ---
Subjective Progress Note Date: 07/25/20 Principal diagnosis: Acute hypoxic respiratory failure secondary to Covid pneumonia Patient is a 75-year-old female with a known history of coronary artery disease with stent placement, hypertension, hyperlipidemia, osteoarthritis and history of back surgery presents to ER with complaints of nausea, vomiting and episodes of diarrhea and worsening shortness of breath and generalized weakness for the past 1 week. Patient denied any complaints of fever or chills. No chest pain. Vitals on admission blood pressure 157/92 pulse 69 and pulse ox 89 % impro vement Chest x-ray showed chronic use possible ileus failed acute infiltrate left mid lung laterally and right basilar wheezing. Correlate clinically. Next and CT angiogram showed no evidence of PE. Bilateral patchy pulmonary infiltrates consistent with pneumonia which are essentially new compared to old exam. Laboratory data show d-dimer 2.24, potassium3.4 and COVID-19 PCR detected. 07/23/2020 Patient is currently lying in bed comfortable. Breathing status is better today. Does have cough without sputum production. Currently being continued on remdesivir day 3, dexamethasone and Lovenox. Denied any complaints of nausea vomiting or diarrhea. Currently requiring oxygen 2 L via nasal cannula. Laboratory data showed D-dimer is 2.42 CRP 1.5 and LDH 442. Pulmonary is following. 07/24/2020 Patient is currently lying in the bed. Awake alert. Still complains of nausea and no episodes of vomiting. Requiring oxygen at 2 L via nasal cannula. Patient has been afebrile. Cough without sputum production minimal. Patient is being continued dexamethasone and Lovenox. Patient was bradycardic overnight. Seen by cardiology and discontinued Cardizem. No headache or dizziness. Patient is somewhat poor historian otherwise. Pulmonary and cardiology is on board. 07/25/2020 Patient is currently lying in the bed. Still nauseated. Heart rate improved now. TSH level is within normal limits. Discontinued atenolol and added amlodipine. Cardiology is on board. 2D echocardiogram showed preserved LV systolic function ejection fraction 50 to 55%. Anteroseptal hypokinesia and mild MR and TR. Patient is still requiring 2 L oxygen via nasal cannula. Laboratory data reviewed. Pulmonary and cardiology on board. No complaints of chest pain. Patient is being continued on symptomatic management for nausea and continue with PPI. Current medications reviewed. Objective - Vital Signs Vital signs: Vital Signs Temp 98.9 F 07/25/20 14:00 Pulse 56 L 07/25/20 14:00 Resp 16 07/25/20 14:00 BP 125/74 07/25/20 14:00 Pulse Ox 90 L 07/25/20 14:00 Intake & Output 07/24/20 07/25/20 07/25/20 18:59 06:59 18:59 Intake Total 900 650 Balance 900 650 Weight 50.8 kg Intake: Oral 900 650 Other: Voiding Method Toilet Diaper Incontinent # Voids 1 2 # Bowel Movements 1 - Exam PHYSICAL EXAMINATION: Patient is lying in the bed comfortably, no acute distress, awake alert and oriented.. HEENT: Normocephalic. Neck is supple. Pupils reactive. Nostrils clear. Oral cavity is moist. Ears reveal no drainage. Neck reveals no JVD, carotid bruits, or thyromegaly. CHEST EXAMINATION: Trachea is central. Symmetrical expansion.Bibasilar diminished sounds. No wheezing.. CARDIAC: Normal S1, S2 with no gallops. No murmurs ABDOMEN: Soft. Bowel sounds normal. No organomegaly. No abdominal bruits. Extremities: reveal no edema. No clubbing or cyanosis Neurologically awake, alert, oriented x2-3 with well-coordinated movements. No focal deficits noted Skin: No rash or skin lesions. Psychiatric: Coperative. Musculoskeletal: No joint swelling or deformity. Normal range of motion. - Labs CBC & Chem 7: 07/26/20 17:26 07/24/20 07:09 Assessment and Plan Assessment: Acute COVID-19 pneumonia. Patient has been having symptoms for the past 1 week Acute hypoxic respiratory failure currently requiring 3 oxygen via cannula Sinus bradycardia. Hypokalemia Coronary artery disease with history of stent placement Hypertension Hyperlipidemia Osteoarthritis History of bronchial asthma not in exacerbation DVT prophylaxis with Lovenox Plan: Patient will be continued on oxygen supplementation and was started on dexamethasone 6 mg daily and Lovenox subcu daily. Patient completed Remdesivir coarse. Atenolol Dced due to bradycardia. Pulmonary is on board. Patient is currently requiring 2 L oxygen via nasal cannula. Gradually titrate down to room air. Monitor for any worsening symptoms. Continue to follow closely and prognosis is guarded at this time. Time with Patient: Greater than 30
--- NOTE | 2020-07-26 23:00 | P.PN ---
Subjective Progress Note Date: 07/26/20 Principal diagnosis: Acute hypoxic respiratory failure secondary to Covid pneumonia Patient is a 75-year-old female with a known history of coronary artery disease with stent placement, hypertension, hyperlipidemia, osteoarthritis and history of back surgery presents to ER with complaints of nausea, vomiting and episodes of diarrhea and worsening shortness of breath and generalized weakness for the past 1 week. Patient denied any complaints of fever or chills. No chest pain. Vitals on admission blood pressure 157/92 pulse 69 and pulse ox 89 % impro vement Chest x-ray showed chronic use possible ileus failed acute infiltrate left mid lung laterally and right basilar wheezing. Correlate clinically. Next and CT angiogram showed no evidence of PE. Bilateral patchy pulmonary infiltrates consistent with pneumonia which are essentially new compared to old exam. Laboratory data show d-dimer 2.24, potassium3.4 and COVID-19 PCR detected. 07/23/2020 Patient is currently lying in bed comfortable. Breathing status is better today. Does have cough without sputum production. Currently being continued on remdesivir day 3, dexamethasone and Lovenox. Denied any complaints of nausea vomiting or diarrhea. Currently requiring oxygen 2 L via nasal cannula. Laboratory data showed D-dimer is 2.42 CRP 1.5 and LDH 442. Pulmonary is following. 07/24/2020 Patient is currently lying in the bed. Awake alert. Still complains of nausea and no episodes of vomiting. Requiring oxygen at 2 L via nasal cannula. Patient has been afebrile. Cough without sputum production minimal. Patient is being continued dexamethasone and Lovenox. Patient was bradycardic overnight. Seen by cardiology and discontinued Cardizem. No headache or dizziness. Patient is somewhat poor historian otherwise. Pulmonary and cardiology is on board. 07/25/2020 Patient is currently lying in the bed. Still nauseated. Heart rate improved now. TSH level is within normal limits. Discontinued atenolol and added amlodipine. Cardiology is on board. 2D echocardiogram showed preserved LV systolic function ejection fraction 50 to 55%. Anteroseptal hypokinesia and mild MR and TR. Patient is still requiring 2 L oxygen via nasal cannula. Laboratory data reviewed. Pulmonary and cardiology on board. No complaints of chest pain. Patient is being continued on symptomatic management for nausea and continue with PPI. 07/26/2020 Patient is currently resting in the bed. Awake alert. Denied any chest pain or worsening shortness of breath. Patient is requiring oxygen at 5 L via nasal cannula today. Blood pressure is elevated. Patient was started on Norvasc. We will lower IV hydration and encourage oral intake. Nausea improved. No chills or vomiting. Patient has been afebrile. Laboratory data showed WBC 17.6 and hemoglobin 15.2 and platelet count 404 follow-up CBC and inflammatory markers tomorrow. Pulmonary is on board. Current medications reviewed. Objective - Vital Signs Vital signs: Vital Signs Temp 98.4 F 07/26/20 17:51 Pulse 88 07/26/20 17:51 Resp 20 07/26/20 17:51 BP 172/93 07/26/20 17:51 Pulse Ox 90 L 07/26/20 17:51 Intake & Output 07/26/20 07/26/20 07/27/20 06:59 18:59 06:59 Weight 56 kg Other: Voiding Method Toilet Toilet Toilet Diaper Diaper Diaper Incontinent Incontinent Incontinent # Voids 1 4 2 # Emeses 4 - Exam PHYSICAL EXAMINATION: Patient is lying in the bed comfortably, no acute distress, awake alert and oriented.. HEENT: Normocephalic. Neck is supple. Pupils reactive. Nostrils clear. Oral cavity is moist. Ears reveal no drainage. Neck reveals no JVD, carotid bruits, or thyromegaly. CHEST EXAMINATION: Trachea is central. Symmetrical expansion.Bibasilar dimini shed sounds. No wheezing.. CARDIAC: Normal S1, S2 with no gallops. No murmurs ABDOMEN: Soft. Bowel sounds normal. No organomegaly. No abdominal bruits. Extremities: reveal no edema. No clubbing or cyanosis Neurologically awake, alert, oriented x2-3 with well-coordinated movements. No focal deficits noted Skin: No rash or skin lesions. Psychiatric: Coperative. Musculoskeletal: No joint swelling or deformity. Normal range of motion. - Labs CBC & Chem 7: 07/26/20 17:26 07/24/20 07:09 Labs: Abnormal Lab Results - Last 24 Hours (Table) 07/26/20 Range/Units 17:26 WBC 17.6 H (3.8-10.6) k/uL RBC 5.56 H (3.80-5.40) m/uL Hct 47.5 H (34.0-46.0) % Neutrophils # 15.1 H (1.3-7.7) k/uL Monocytes # 1.2 H (0-1.0) k/uL Assessment and Plan Assessment: Acute COVID-19 pneumonia. Patient has been having symptoms for the past 1 week prior to admission Acute hypoxic respiratory failure currently requiring 5L oxygen via cannula Sinus bradycardia. Hypokalemia Coronary artery disease with history of stent placement Hypertension Hyperlipidemia Osteoarthritis History of bronchial asthma not in exacerbation DVT prophylaxis with Lovenox Plan: Patient will be continued on oxygen supplementation and was started on dexamethasone 6 mg daily and Lovenox subcu daily. Patient completed Remdesivir coarse. Atenolol Dced due to bradycardia. Pulmonary is on board. Patient is currently requiring 2 L oxygen via nasal cannula. Gradually titrate down to room air. Monitor for any worsening symptoms. Continue to follow closely and prognosis is guarded at this time. Time with Patient: Greater than 30
[2020-07-27] MEDS: SODIUM CHLORIDE 0.9% 1,000 ML IV SCH ×2 (00:37→20:36)
[2020-07-27] MEDS: METOCLOPRAMIDE 5 MG/ML 2 ML VIAL IVP PRN (05:48)
[2020-07-27] MEDS: ASPIRIN 81 MG PO SCH (07:11)
[2020-07-27] MEDS: OXYBUTYNIN CHLORIDE 5 MG TAB PO SCH ×3 (07:11→20:34)
[2020-07-27] MEDS: amLODIPine 5 MG TAB PO SCH (07:11)
[2020-07-27] MEDS: dexAMETHasone 2 MG TAB PO SCH (07:11)
[2020-07-27] MEDS: ENOXAPARIN 40 MG/0.4 ML SYRINGE SQ SCH (07:15)
[2020-07-27] MEDS: PANTOPRAZOLE 40 MG/10 ML VIAL IVP SCH (07:16)
--- NOTE | 2020-07-27 08:08 | XR ---
EXAMINATION TYPE: XR chest 1V DATE OF EXAM: 07/27/2020 COMPARISON: Chest x-ray 07/21/2020 HISTORY: Covid pneumonia, abnormal chest x-ray TECHNIQUE: Single frontal view of the chest is obtained. FINDINGS: Right hemidiaphragm remains elevated, bowel loop suspected underneath the right hemidiaphr agm. Patchy basilar density persists. Cardiac mediastinal silhouette is stable. Aorta is dense. No ev ident pneumothorax or pleural effusion. Arthropathy noted in the shoulders. Patient is rotated. IMPRESSION: Correlate for pneumonia
[2020-07-27 10:43] LABS: Basophils # (A) 0.02 X 10*3/uL (0.00-0.10); Basophils % (A) 0.2 %; Eosinophils # (A) 0 X 10*3/uL (0.04-0.35); Eosinophils % (A) 0 %; HCT 38.1 % (37.2-46.3); HGB 12.2 g/dL (12.0-15.0); Lymphocytes # (A) 0.79 X 10*3/uL (0.90-5.00); Lymphocytes % (A) 7.1 %; MCH 27.8 pg (27.0-32.0); MCV 86.8 fL (80.0-97.0); Monocytes % (A) 8.1 %; Neutrophils # (A) 9.38 X 10*3/uL (1.80-7.70); Neutrophils % (A) 83.8 %; Platelet Count 314 X 10*3/uL (140-440); RBC 4.39 X 10*6/uL (4.10-5.20); RDW 13.6 % (11.5-14.5); WBC 11.18 X 10*3/uL (4.50-10.00)
[2020-07-27] MEDS: ONDANSETRON 4 MG/2 ML VIAL IVP PRN (11:38)
[2020-07-27] MEDS: ATORVASTATIN 40 MG TAB PO SCH (20:34)
[2020-07-27] MEDS: PANTOPRAZOLE 40 MG TABLET PO SCH (20:34)
[2020-07-28 00:13] LABS: African American GFR (CKD) 101.9 (60.0-200.0); Anion Gap 14.8 mmol/L (4.00-12.00); BUN/Creat Ratio 43.33 Ratio (12.00-20.00); Calcium 8.3 mg/dL (8.7-10.3); Carbon Dioxide 26.2 mmol/L (21.6-31.8); Non-African American GFR(CKD) 87.9 (60.0-200.0); Potassium 3.7 mmol/L (3.5-5.5)
[2020-07-28 05:42] VITALS: RESP 16
[2020-07-28] MEDS: ASPIRIN 81 MG PO SCH (07:27)
[2020-07-28] MEDS: dexAMETHasone 2 MG TAB PO SCH (07:27)
[2020-07-28] MEDS: OXYBUTYNIN CHLORIDE 5 MG TAB PO SCH ×3 (07:27→21:50)
[2020-07-28] MEDS: amLODIPine 5 MG TAB PO SCH (07:27)
[2020-07-28] MEDS: PANTOPRAZOLE 40 MG TABLET PO SCH ×2 (07:27→21:50)
[2020-07-28] MEDS: ENOXAPARIN 40 MG/0.4 ML SYRINGE SQ SCH (07:28)
[2020-07-28] MEDS: SODIUM CHLORIDE 0.9% 1,000 ML IV SCH (17:09)
[2020-07-28] MEDS: ATORVASTATIN 40 MG TAB PO SCH (21:48)
[2020-07-28] MEDS: IBUPROFEN 800 MG TAB PO PRN (21:50)
--- NOTE | 2020-07-29 00:11 | P.PN ---
Subjective Progress Note Date: 07/27/20 Principal diagnosis: Acute hypoxic respiratory failure secondary to Covid pneumonia Patient is a 75-year-old female with a known history of coronary artery disease with stent placement, hypertension, hyperlipidemia, osteoarthritis and history of back surgery presents to ER with complaints of nausea, vomiting and episodes of diarrhea and worsening shortness of breath and generalized weakness for the past 1 week. Patient denied any complaints of fever or chills. No chest pain. Vitals on admission blood pressure 157/92 pulse 69 and pulse ox 89 % impro vement Chest x-ray showed chronic use possible ileus failed acute infiltrate left mid lung laterally and right basilar wheezing. Correlate clinically. Next and CT angiogram showed no evidence of PE. Bilateral patchy pulmonary infiltrates consistent with pneumonia which are essentially new compared to old exam. Laboratory data show d-dimer 2.24, potassium3.4 and COVID-19 PCR detected. 07/23/2020 Patient is currently lying in bed comfortable. Breathing status is better today. Does have cough without sputum production. Currently being continued on remdesivir day 3, dexamethasone and Lovenox. Denied any complaints of nausea vomiting or diarrhea. Currently requiring oxygen 2 L via nasal cannula. Laboratory data showed D-dimer is 2.42 CRP 1.5 and LDH 442. Pulmonary is following. 07/24/2020 Patient is currently lying in the bed. Awake alert. Still complains of nausea and no episodes of vomiting. Requiring oxygen at 2 L via nasal cannula. Patient has been afebrile. Cough without sputum production minimal. Patient is being continued dexamethasone and Lovenox. Patient was bradycardic overnight. Seen by cardiology and discontinued Cardizem. No headache or dizziness. Patient is somewhat poor historian otherwise. Pulmonary and cardiology is on board. 07/25/2020 Patient is currently lying in the bed. Still nauseated. Heart rate improved now. TSH level is within normal limits. Discontinued atenolol and added amlodipine. Cardiology is on board. 2D echocardiogram showed preserved LV systolic function ejection fraction 50 to 55%. Anteroseptal hypokinesia and mild MR and TR. Patient is still requiring 2 L oxygen via nasal cannula. Laboratory data reviewed. Pulmonary and cardiology on board. No complaints of chest pain. Patient is being continued on symptomatic management for nausea and continue with PPI. 07/26/2020 Patient is currently resting in the bed. Awake alert. Denied any chest pain or worsening shortness of breath. Patient is requiring oxygen at 5 L via nasal cannula today. Blood pressure is elevated. Patient was started on Norvasc. We will lower IV hydration and encourage oral intake. Nausea improved. No chills or vomiting. Patient has been afebrile. Laboratory data showed WBC 17.6 and hemoglobin 15.2 and platelet count 404 follow-up CBC and inflammatory markers tomorrow. Pulmonary is on board. 07/27/2020 Patient is currently lying in bed comfortably. Heart rate is controlled. No episodes of bradycardia. Otherwise patient is still requiring 5 L oxygen via nasal cannula. Patient is nauseated and unable to tolerate oral diet. No fever no chills. No headache or dizziness or lightheadedness. No hematemesis or melena. No diarrhea. Lab data showed WBC 11.1 hemoglobin 12.1 platelets 314 D-dimer 2.53 Sodium 141 potassium 3.7 BUN 26 and creatinine 0.6 LDH is trending down to 229 and CRP was 1.1. Encourage PT OT and ambulation. Current medications reviewed. Objective - Vital Signs Vital signs: Vital Signs Temp 98.2 F 07/27/20 17:30 Pulse 71 07/27/20 17:30 Resp 23 07/27/20 17:30 BP 133/84 07/27/20 17:30 Pulse Ox 98 07/27/20 17:30 Intake & Output 07/27/20 07/27/20 07/28/20 06:59 18:59 06:59 Output Total 100 350 Balance -100 -350 Weight 54 kg 54 kg Output: Urine 100 350 Other: Voiding Method Toilet Diaper Incontinent # Voids 2 # Emeses 4 - Exam PHYSICAL EXAMINATION: Patient is lying in the bed comfortably, no acute distress, awake alert and oriented.. HEENT: Normocephalic. Neck is supple. Pupils reactive. Nostrils clear. Oral cavity is moist. Ears reveal no drainage. Neck reveals no JVD, carotid bruits, or thyromegaly. CHEST EXAMINATION: Trachea is central. Symmetrical expansion.Bibasilar diminished sounds. No wheezing.. CARDIAC: Normal S1, S2 with no gallops. No murmurs ABDOMEN: Soft. Bowel sounds normal. No organomegaly. No abdominal bruits. Extremities: reveal no edema. No clubbing or cyanosis Neurologically awake, alert, oriented x2-3 with well-coordinated movements. No focal deficits noted Skin: No rash or skin lesions. Psychiatric: Coperative. Musculoskeletal: No joint swelling or deformity. Normal range of motion. - Labs CBC & Chem 7: 07/27/20 07:31 07/27/20 07:31 Labs: Abnormal Lab Results - Last 24 Hours (Table) 07/27/20 07/27/20 Range/Units 07:31 07:31 WBC 11.18 H (4.50-10.00) X 10*3/uL Immature Gran # 0.09 H (0.00-0.04) X 10*3/uL Neutrophils # 9.38 H (1.80-7.70) X 10*3/uL Lymphocytes # 0.79 L (0.90-5.00) X 10*3/uL Eosinophils # 0 L (0.04-0.35) X 10*3/uL D-Dimer 2.53 H (<0.60) mg/L FEU Assessment and Plan Assessment: Acute COVID-19 pneumonia. Patient has been having symptoms for the past 1 week prior to admission Acute hypoxic respiratory failure currently requiring 5L oxygen via cannula Intractable nausea and episodes of vomiting. Sinus bradycardia. Hypokalemia Coronary artery disease with history of stent placement Hypertension Hyperlipidemia Osteoarthritis History of bronchial asthma not in exacerbation DVT prophylaxis with Lovenox Plan: Patient will be continued on oxygen supplementation and was started on d examethasone 6 mg daily and Lovenox subcu daily. Patient completed Remdesivir coarse. Atenolol Dced due to bradycardia. Pulmonary is on board. Patient is currently requiring 5 L oxygen via nasal john izabella. Gradually titrate down to room air. Monitor for any worsening symptoms. Continue to follow closely and prognosis is guarded at this time. Time with Patient: Greater than 30
--- NOTE | 2020-07-29 00:14 | P.PN ---
Subjective Progress Note Date: 07/28/20 Principal diagnosis: Acute hypoxic respiratory failure secondary to Covid pneumonia Patient is a 75-year-old female with a known history of coronary artery disease with stent placement, hypertension, hyperlipidemia, osteoarthritis and history of back surgery presents to ER with complaints of nausea, vomiting and episodes of diarrhea and worsening shortness of breath and generalized weakness for the past 1 week. Patient denied any complaints of fever or chills. No chest pain. Vitals on admission blood pressure 157/92 pulse 69 and pulse ox 89 % impro vement Chest x-ray showed chronic use possible ileus failed acute infiltrate left mid lung laterally and right basilar wheezing. Correlate clinically. Next and CT angiogram showed no evidence of PE. Bilateral patchy pulmonary infiltrates consistent with pneumonia which are essentially new compared to old exam. Laboratory data show d-dimer 2.24, potassium3.4 and COVID-19 PCR detected. 07/23/2020 Patient is currently lying in bed comfortable. Breathing status is better today. Does have cough without sputum production. Currently being continued on remdesivir day 3, dexamethasone and Lovenox. Denied any complaints of nausea vomiting or diarrhea. Currently requiring oxygen 2 L via nasal cannula. Laboratory data showed D-dimer is 2.42 CRP 1.5 and LDH 442. Pulmonary is following. 07/24/2020 Patient is currently lying in the bed. Awake alert. Still complains of nausea and no episodes of vomiting. Requiring oxygen at 2 L via nasal cannula. Patient has been afebrile. Cough without sputum production minimal. Patient is being continued dexamethasone and Lovenox. Patient was bradycardic overnight. Seen by cardiology and discontinued Cardizem. No headache or dizziness. Patient is somewhat poor historian otherwise. Pulmonary and cardiology is on board. 07/25/2020 Patient is currently lying in the bed. Still nauseated. Heart rate improved now. TSH level is within normal limits. Discontinued atenolol and added amlodipine. Cardiology is on board. 2D echocardiogram showed preserved LV systolic function ejection fraction 50 to 55%. Anteroseptal hypokinesia and mild MR and TR. Patient is still requiring 2 L oxygen via nasal cannula. Laboratory data reviewed. Pulmonary and cardiology on board. No complaints of chest pain. Patient is being continued on symptomatic management for nausea and continue with PPI. 07/26/2020 Patient is currently resting in the bed. Awake alert. Denied any chest pain or worsening shortness of breath. Patient is requiring oxygen at 5 L via nasal cannula today. Blood pressure is elevated. Patient was started on Norvasc. We will lower IV hydration and encourage oral intake. Nausea improved. No chills or vomiting. Patient has been afebrile. Laboratory data showed WBC 17.6 and hemoglobin 15.2 and platelet count 404 follow-up CBC and inflammatory markers tomorrow. Pulmonary is on board. 07/27/2020 Patient is currently lying in bed comfortably. Heart rate is controlled. No episodes of bradycardia. Otherwise patient is still requiring 5 L oxygen via nasal cannula. Patient is nauseated and unable to tolerate oral diet. No fever no chills. No headache or dizziness or lightheadedness. No hematemesis or melena. No diarrhea. Lab data showed WBC 11.1 hemoglobin 12.1 platelets 314 D-dimer 2.53 Sodium 141 potassium 3.7 BUN 26 and creatinine 0.6 LDH is trending down to 229 and CRP was 1.1. Encourage PT OT and ambulation. 07/28/2020 Patient is more awake and oriented today. Able to tolerate soft diet and will be advanced as tolerated. Otherwise patient is very weak and unable to walk to the bathroom without any support. Patient states that her bedroom is upstairs and she has to climb stairs. Discussed with her daughter who is willing to take her home. Does not want her to be discharged to rehab. Otherwise patient is afebrile. Nausea improved and no episodes of vomiting. No abdominal pain. No chest pain or worsening shortness of. Currently on 3 L oxygen via nasal cannula. No episodes of bradycardia. Anticipate discharge in next 24 hours with more clinical improvement. Current medications reviewed. Objective - Vital Signs Vital signs: Vital Signs Temp 98.8 F 07/28/20 20:35 Pulse 66 07/28/20 20:35 Resp 16 07/28/20 20:35 BP 152/85 07/28/20 20:35 Pulse Ox 98 07/28/20 20:35 Intake & Output 07/28/20 07/28/20 07/29/20 06:59 18:59 06:59 Intake Total 950 Output Total 450 Balance -450 950 Weight 54 kg Intake: Intake, IV Titration 550 Amount Sodium Chloride 0.9% 1, 550 000 ml @ 50 mls/hr IV . Q20H [facility] Rx#:[id number] Oral 400 Output: Urine 450 Other: Voiding Method Diaper Diaper Incontinent Incontinent - Exam PHYSICAL EXAMINATION: Patient is lying in the bed comfortably, no acute distress, awake alert and oriented.. HEENT: Normocephalic. Neck is supple. Pupils reactive. Nostrils clear. Oral cavity is moist. Ears reveal no drainage. Neck reveals no JVD, carotid bruits, or thyromegaly. CHEST EXAMINATION: Trachea is central. Symmetrical expansion.Bibasilar diminished sounds. No wheezing.. CARDIAC: Normal S1, S2 with no gallops. No murmurs ABDOMEN: Soft. Bowel sounds normal. No organomegaly. No abdominal bruits. Extremities: reveal no edema. No clubbing or cyanosis Neurologically awake, alert, oriented x2-3 with well-coordinated movements. No focal deficits noted Skin: No rash or skin lesions. Psychiatric: Coperative. Musculoskeletal: No joint swelling or deformity. Normal range of motion. - Labs CBC & Chem 7: 07/27/20 07:31 07/27/20 07:31 Labs: Abnormal Lab Results - Last 24 Hours (Table) 07/27/20 Range/Units 07:31 Anion Gap 14.80 H (4.00-12.00) mmol/L BUN/Creatinine Ratio 43.33 H (12.00-20.00) Ratio Glucose 133 H (70-110) mg/dL Calcium 8.3 L (8.7-10.3) mg/dL Assessment and Plan Assessment: Acute COVID-19 pneumonia. Patient has been having symptoms for the past 1 week prior to admission Acute hypoxic respiratory failure currently requiring 5L-->3L oxygen via cannula Intractable nausea and episodes of vomiting. Sinus bradycardia. Hypokalemia Coronary artery disease with history of stent placement Hypertension Hyperlipidemia Osteoarthritis History of bronchial asthma not in exacerbation DVT prophylaxis with Lovenox Plan: Patient will be continued on oxygen supplementation and was started on dexamethasone 6 mg daily and Lovenox subcu daily. Patient completed Remdesivir coarse. Atenolol Dced due to bradycardia. Pulmonary is on board. Patient is currently requiring 3 L oxygen via nasal cannula. Gradually titrate down to room air. Monitor for any worsening symptoms. Continue to follow closely and prognosis is guarded at this time. Time with Patient: Greater than 30
[2020-07-29] MEDS: amLODIPine 5 MG TAB PO SCH (07:25)
[2020-07-29] MEDS: OXYBUTYNIN CHLORIDE 5 MG TAB PO SCH (07:25)
[2020-07-29] MEDS: ENOXAPARIN 40 MG/0.4 ML SYRINGE SQ SCH (07:25)
[2020-07-29] MEDS: PANTOPRAZOLE 40 MG TABLET PO SCH (07:25)
[2020-07-29] MEDS: dexAMETHasone 2 MG TAB PO SCH (07:25)
[2020-07-29] MEDS: ASPIRIN 81 MG PO SCH (07:26)
[2020-07-29 09:23] LABS: Basophils # (A) 0.01 X 10*3/uL (0.00-0.10); Basophils % (A) 0.1 %; Eosinophils # (A) 0 X 10*3/uL (0.04-0.35); Eosinophils % (A) 0 %; HCT 32.5 % (37.2-46.3); HGB 10.3 g/dL (12.0-15.0); Lymphocytes # (A) 0.87 X 10*3/uL (0.90-5.00); Lymphocytes % (A) 11.9 %; MCHC 31.7 g/dL (32.0-37.0); MCV 88.3 fL (80.0-97.0); Mean Platelet Volume 11.8 fL (9.5-12.2); Monocytes # (A) 0.81 X 10*3/uL (0.20-1.00); Monocytes % (A) 11.1 %; Neutrophils # (A) 5.52 X 10*3/uL (1.80-7.70); Neutrophils % (A) 75.5 %; Platelet Count 252 X 10*3/uL (140-440); RBC 3.68 X 10*6/uL (4.10-5.20); RDW 13.3 % (11.5-14.5); WBC 7.31 X 10*3/uL (4.50-10.00)
[2020-07-29 10:28] LABS: African American GFR (CKD) 116.4 (60.0-200.0); Anion Gap 6.7 mmol/L (4.00-12.00); Carbon Dioxide 28.3 mmol/L (21.6-31.8); Non-African American GFR(CKD) 100.5 (60.0-200.0)
[2020-07-29 13:39] VITALS: BMI 23.6
[2020-07-29 13:58] VITALS: BP 163/95; PULSE 96; TEMP 97.6
--- NOTE | 2020-07-30 10:56 | P.DS ---
Providers Date of admission: 07/21/20 20:05 Expected date of discharge: 07/29/20 Attending physician: Genie Trammell Consults: 07/21/20 20:05 Consult Physician Urgent Consulting Provider: Abdullahi Jeff Consult Reason/Comments: COVID pneumonia Do you want consulting provider notified?: Yes 07/23/20 21:13 Consult Physician Routine Consulting Provider: Zach Delatorre Consult Reason/Comments: Chest Pain Do you want consulting provider notified?: Yes Primary care physician: Radha Gardner Hospital Course: Final diagnosis Acute COVID-19 pneumonia. Patient has been having symptoms for the past 1 week prior to admission Acute hypoxic respiratory failure currently requiring 5L-->3L oxygen via cannula Intractable nausea and episodes of vomiting. Sinus bradycardia. Hypokalemia Coronary artery disease with history of stent placement Hypertension Hyperlipidemia Osteoarthritis History of bronchial asthma not in exacerbation DVT prophylaxis Discharge disposition Patient is being discharged in a stable condition with guarded prognosis to home. Patient will follow-up with Dr. Garcia in the outpatient setting upon discharge. Patient is to follow up with cardiology as scheduled. Patient will continue with dexamethasone 6 mg daily for the next 3 days to complete the course. Total time taken is greater than 35 minutes. Hospital course Acute hypoxic respiratory failure secondary to Covid pneumonia Patient is a 75-year-old female with a known history of coronary artery disease with stent placement, hypertension, hyperlipidemia, osteoarthritis and history of back surgery presents to ER with complaints of nausea, vomiting and episodes of diarrhea and worsening shortness of breath and generalized weakness for the past 1 week. Patient denied any complaints of fever or chills. No chest pain. Vitals on admission blood pressure 157/92 pulse 69 and pulse ox 89 % improvement Chest x-ray showed chronic use possible ileus failed acute infiltrate left mid lung laterally and right basilar wheezing. Correlate clinically. Next and CT angiogram showed no evidence of PE. Bilateral patchy pulmonary infiltrates consistent with pneumonia which are essentially new compared to old exam. Laboratory data show d-dimer 2.24, potassium3.4 and COVID-19 PCR detected. 07/23/2020 Patient is currently lying in bed comfortable. Breathing status is better today. Does have cough without sputum production. Currently being continued on remdesivir day 3, dexamethasone and Lovenox. Denied any complaints of nausea vomiting or diarrhea. Currently requiring oxygen 2 L via nasal cannula. Laboratory data showed D-dimer is 2.42 CRP 1.5 and LDH 442. Pulmonary is following. 07/24/2020 Patient is currently lying in the bed. Awake alert. Still complains of nausea and no episodes of vomiting. Requiring oxygen at 2 L via nasal cannula. Patient has been afebrile. Cough without sputum production minimal. Patient is being continued dexamethasone and Lovenox. Patient was bradycardic overnight. Seen by cardiology and discontinued Cardizem. No headache or dizziness. Patient is somewhat poor historian otherwise. Pulmonary and cardiology is on board. 07/25/2020 Patient is currently lying in the bed. Still nauseated. Heart rate improved now. TSH level is within normal limits. Discontinued atenolol and added amlodipine. Cardiology is on board. 2D echocardiogram showed preserved LV systolic function ejection fraction 50 to 55%. Anteroseptal hypokinesia and mild MR and TR. Patient is still requiring 2 L oxygen via nasal cannula. Laboratory data reviewed. Pulmonary and cardiology on board. No complaints of chest pain. Patient is being continued on symptomatic management for nausea and continue with PPI. 07/26/2020 Patient is currently resting in the bed. Awake alert. Denied any chest pain or worsening shortness of breath. Patient is requiring oxygen at 5 L via nasal cannula today. Blood pressure is elevated. Patient was started on Norvasc. We will lower IV hydration and encourage oral intake. Nausea improved. No chills or vomiting. Patient has been afebrile. Laboratory data showed WBC 17.6 and hemoglobin 15.2 and platelet count 404 follow-up CBC and inflammatory markers tomorrow. Pulmonary is on board. 07/27/2020 Patient is currently lying in bed comfortably. Heart rate is controlled. No episodes of bradycardia. Otherwise patient is still requiring 5 L oxygen via nasal cannula. Patient is nauseated and unable to tolerate oral diet. No fever no chills. No headache or dizziness or lightheadedness. No hematemesis or melena. No diarrhea. Lab data showed WBC 11.1 hemoglobin 12.1 platelets 314 D-dimer 2.53 Sodium 141 potassium 3.7 BUN 26 and creatinine 0.6 LDH is trending down to 229 and CRP was 1.1. Encourage PT OT and ambulation. 07/28/2020 Patient is more awake and oriented today. Able to tolerate soft diet and will be advanced as tolerated. Otherwise patient is very weak and unable to walk to the bathroom without any support. Patient states that her bedroom is upstairs and she has to climb stairs. Discussed with her daughter who is willing to take her home. Does not want her to be discharged to rehab. Otherwise patient is afebrile. Nausea improved and no episodes of vomiting. No abdominal pain. No chest pain or worsening shortness of. Currently on 3 L oxygen via nasal cannula. No episodes of bradycardia. Anticipate discharge in next 24 hours with more clinical improvement. 07/29/2020 Patient seen and evaluated in follow-up this morning continues to be more awake and alert and per nursing staff and patient she is tolerating food and eating well with no nausea or vomiting noted. Patient will be going home with family member as she is her caregiver as she is also refusing rehab and Homecare in the outpatient setting. Patient will continue with dexamethasone 6 mg daily for the next 3 days to complete the course. Patient also continues on nasal cannula 3 L secondary to Covid 19. Patient instructed to follow-up with primary care provider along with cardiology upon discharge. Currently no reports of chest pain, worsening shortness of breath, or palpitations. Patient is afebrile. No reports of nausea or vomiting and patient is tolerating diet. Patient will be discharged home today. Guarded prognosis On exam vital signs are stable. Cardio S1, S2 are muffled. Respiratory system shows diminished breath sounds at the bases with no wheezing or rhonchi noted. Abdomen is soft and nontender. Nervous system shows diffuse weakness. Please refer to medication reconciliation sheet for a list of medications. Patient Condition at Discharge: Stable Plan - Discharge Summary Discharge Rx Participant: No New Discharge Prescriptions: New Atorvastatin [Lipitor] 40 mg PO HS #30 tab Dexamethasone [Decadron] 6 mg PO DAILY 3 Days #3 tablet amLODIPine [Norvasc] 5 mg PO DAILY #30 tab Continue Aspirin EC [Ecotrin] 325 mg PO DAILY Oxybutynin Chloride 5 mg PO TID Ergocalciferol (Vitamin D2) [Vitamin D2 (50,000 Iu)] 1,250 mcg PO GARZA Sertraline [Zoloft] 50 mg PO DAILY Pantoprazole Sodium [Protonix] 40 mg PO DAILY Discontinued dilTIAZem HCL [Diltiazem HCl] 30 mg PO TID atenoloL [Tenormin] 50 mg PO BID Discharge Medication List Aspirin EC [Ecotrin] 325 mg PO DAILY 02/26/17 [History] Oxybutynin Chloride 5 mg PO TID 02/26/17 [History] Ergocalciferol (Vitamin D2) [Vitamin D2 (50,000 Iu)] 1,250 mcg PO GARZA 07/21/20 [History] Pantoprazole Sodium [Protonix] 40 mg PO DAILY 07/21/20 [History] Sertraline [Zoloft] 50 mg PO DAILY 07/21/20 [History] Atorvastatin [Lipitor] 40 mg PO HS #30 tab 07/28/20 [Rx] Dexamethasone [Decadron] 6 mg PO DAILY 3 Days #3 tablet 07/28/20 [Rx] amLODIPine [Norvasc] 5 mg PO DAILY #30 tab 07/28/20 [Rx] Follow up Appointment(s)/Referral(s): Juan Jones MD [STAFF PHYSICIAN] - 08/11/20 3:00 pm Kendra Garcia MD [Primary Care Provider] - 1-2 days (Call office for your appointment. Thank you.) Patient Instructions/Handouts: Coronavirus Disease 2019 (COVID-19) Activity/Diet/Wound Care/Special Instructions: Activity Limited until follow-up Follow-up with primary care provider upon discharge Follow-up with cardiology outpatient Continue current diet and advance slowly as tolerated Encourage fluids and rest Monitor for fever and treat with Tylenol Continue with home O2 at 3 L secondary to COVID-19 Continue with home care Discharge Disposition: HOME WITH HOME HEALTH SERVICES Care Plan Goals (MU): [facility], ; will provide portable to room, and set up time to deliver 02. Any questions please contact [facility].
== END 2020-07-29 14:29 | disposition home or self-care (01) | DRG 177 ==
LOC: EC 12:23 → 4SSUR 20:05
PROVIDERS: ADMIT Hospitalist; ATTEND Hospitalist
PROC: XW033E5 Introduction of Remdesivir Anti-infective into Peripheral Vein, Percutaneous Approach, New Technology Group 5 (ICD-10-PCS; principal; 2020-07-21)
DX: U07.1 COVID-19 (principal); J12.82 Pneumonia due to coronavirus disease 2019; J96.01 Acute respiratory failure with hypoxia; K44.9 Diaphragmatic hernia without obstruction or gangrene; N39.3 Stress incontinence (female) (male); J45.909 Unspecified asthma, uncomplicated; M15.9 Polyosteoarthritis, unspecified; D72.810 Lymphocytopenia; E78.5 Hyperlipidemia, unspecified; E87.6 Hypokalemia; I11.0 Hypertensive heart disease with heart failure; I50.9 Heart failure, unspecified; I44.0 Atrioventricular block, first degree; I25.10 Atherosclerotic heart disease of native coronary artery without angina pectoris; Z79.82 Long term (current) use of aspirin; Z79.899 Other long term (current) drug therapy; R79.1 Abnormal coagulation profile; Z82.49 Family history of ischemic heart disease and other diseases of the circulatory system; Z95.5 Presence of coronary angioplasty implant and graft; R00.1 Bradycardia, unspecified; Z83.2 Family history of diseases of the blood and blood-forming organs and certain disorders involving the immune mechanism; Z87.828 Personal history of other (healed) physical injury and trauma; Z88.0 Allergy status to penicillin
CPT/HCPCS: 36415; 71045; 71046; 71275; 80048; 80053; 83605; 83615; 84443; 84484; 85025; 85379; 85610; 85730; 86140; 87635; 93005; 93306; 94760; 96365; 96366; 96375; 99291

== ENCOUNTER 2020-08-18 09:54 | Inpatient (IN) | payer MEDICARE, OTHER ==
[2020-08-18] MEDS ORDERED: NITROGLYCERIN OINT 1 INCH/GM PACKET TOPICAL STA (09:59)
[2020-08-18] MEDS ORDERED: ASPIRIN 81 MG PO STA (09:59)
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
--- NOTE | 2020-08-18 10:51 | XR ---
EXAMINATION TYPE: XR chest 2V DATE OF EXAM: 08/18/2020 COMPARISON: 07/27/2020 TECHNIQUE: PA and lateral views submitted. HISTORY: Chest pain FINDINGS: The lungs are clear and there is no pneumothorax, pleural effusion, or focal pneumonia. Atheroscler otic change aorta. Elevated right hemidiaphragm. Arthropathy of the shoulders. No overt failure. 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 Hyperinflation compatible COPD. IMPRESSION: 1. No acute process. 2. COPD.
[2020-08-18 10:58] LABS: ALT 11 U/L (4-34); AST 20 U/L (14-36); African American GFR (CKD) >90 (>60 ml/min/1.73 sqM); Albumin 2.9 g/dL (3.5-5.0); Alkaline Phosphatase 126 U/L (38-126); Anion Gap 5 mmol/L; Blood Urea Nitrogen 15 mg/dL (7-17); Calcium 8.4 mg/dL (8.4-10.2); Carbon Dioxide 23 mmol/L (22-30); Chloride 110 mmol/L (98-107); Glucose 112 mg/dL (74-99); Magnesium 1.5 mg/dL (1.6-2.3); Non-African American GFR(CKD) 88 (>60 ml/min/1.73 sqM); Potassium 3.5 mmol/L (3.5-5.1); Sodium 138 mmol/L (137-145); Total Bilirubin 0.3 mg/dL (0.2-1.3); Total Protein 5.7 g/dL (6.3-8.2)
[2020-08-18 10:59] LABS: Basophils % (A) 1 %; Eosinophils # (A) 0.1 k/uL (0-0.7); Eosinophils % (A) 2 %; HCT 35.6 % (34.0-46.0); Lymphocytes % (A) 20 %; MCH 27.8 pg (25.0-35.0); MCHC 32.3 g/dL (31.0-37.0); Mean Platelet Volume 8.6; Monocytes # (A) 0.3 k/uL (0-1.0); Monocytes % (A) 5 %; Neutrophils # (A) 3.6 k/uL (1.3-7.7); Neutrophils % (A) 69 %; Platelet Count 205 k/uL (150-450); RBC 4.13 m/uL (3.80-5.40); WBC 5.2 k/uL (3.8-10.6)
[2020-08-18 11:03] LABS: HGB 11.5 gm/dL (11.4-16.0)
[2020-08-18 11:13] LABS: Prothrombin Time 10.3 sec (9.0-12.0)
[2020-08-18 11:22] LABS: D-Dimer 4.31 mg/L FEU (<0.60); Partial Thromboplastin Time 21.2 sec (22.0-30.0)
--- NOTE | 2020-08-18 12:43 | CT ---
CT CHEST FOR PULMONARY EMBOLISM. EXAMINATION TYPE: CT angio chest DATE OF EXAM: 08/18/2020 INDICATION: Chest pain CT DLP: 238.2 mGycm, Automated exposure control for dose reduction was used. CONTRAST: Patient injected with 100 mL of Isovue 370. COMPARISON: 06/03/2014 TECHNIQUE: CT of the chest is performed on a spiral scan at 2 mm thick sections. Study is performed with intravenous contrast timed for evaluation for pulmonary embolism. This will limit additional po rtions of the evaluation. 3-D MIP images reconstructed by the technologist are reviewed on the compu ter in the coronal and sagittal planes. FINDINGS: No persistent filling defects are evident to suggest an acute pulmonary embolism. No mediastinal or hilar adenopathy enlarged by CT criteria is evident. The ascending aorta diameter at the level of the main pulmonary artery is 3.1 cm. The main pulmonary artery diameter at the bifur cation is 2.1 cm. Some mild coronary artery calcification may be present. There is elevation of the left diaphragm. Loops of colon are anterior to the liver. There are some mild compressive atelectatic type changes in the posterior right lung base. There is a 0.5 cm nodule posterior right lung pleural margin. Series 501 image 31. This was present in [address] section through the upper abdomen are unremarkable. IMPRESSIONS: 1. No acute pulmonary embolism. 2. Elevated right diaphragm with mild compressive atelectasis posterior right lung base.
[2020-08-18] MEDS ORDERED: NALOXONE 0.4 MG/ML 1 ML VIAL IV PRN (12:52)
[2020-08-18] MEDS ORDERED: NITROGLYCERIN SL TABS 0.4 MG TAB SUBLINGUAL PRN (12:53)
[2020-08-18] MEDS ORDERED: HYDROmorphone 0.5 MG/0.5 ML SYRINGE IM PRN (13:36)
[2020-08-18] MEDS ORDERED: FLUTICASONE 50MCG/SPRAY NASAL 16GM EA NOSTRIL PRN (14:46)
[2020-08-18] MEDS ORDERED: ALPRAZolam 0.25 MG TAB PO PRN (14:48)
[2020-08-18] MEDS: ACETAMINOPHEN TAB 325 MG TAB PO PRN ×2 (14:52→21:07)
[2020-08-18] MEDS: PANTOPRAZOLE 40 MG/10 ML VIAL IVP SCH ×2 (14:53→21:08)
[2020-08-18] MEDS: SODIUM CHLORIDE 0.9% 1,000 ML IV SCH ×2 (14:54→21:08)
--- NOTE | 2020-08-18 15:40 | HP ---
HISTORY AND PHYSICAL DATE OF SERVICE: 08/18/2020 CHIEF COMPLAINT: Chest pain. HISTORY OF PRESENT ILLNESS: This is a 75-year-old woman with a past medical history of multiple medical problems including history of asthma, history of CAD, CHF, hypertension, history of DJD, history of hiatal hernia, history of CAD with stent being followed by Dr. Garcia in the outpatient setting. Was admitted recently with COVID-19 pneumonia. After a prolonged period, the patient improved well and the patient went home. The patient was able to ambulate with some help, but currently the patient is complaining of chest discomfort mainly seated on the left side of the chest and the patient complains of weakness. The patient came to [facility] and admitted for further evaluation and treatment. The chest CTA showed only minimal infiltrates right side which is significantly improved from the previous. No evidence of pulmonary embolism. D-dimer is still elevated. Magnesium is 1.5 and albumin is 2.9. There is no history of fever, rigors, chills at this time. COVID-19 is pending at this time. PAST MEDICAL HISTORY: Recent COVID-19, history of chest pain, CHF, hypertension, hyperlipidemia, DJD. MEDICATIONS PRIOR TO ADMISSION: Include home medications are Norvasc, Symbicort, Zoloft, Protonix, oxybutynin, fluticasone, vitamin D2, Ecotrin. Doses are reviewed. ALLERGIES: PENICILLIN, LIPITOR. FAMILY HISTORY: Father of an accident. SOCIAL HISTORY: No history of smoking. No alcohol intake. REVIEW OF SYSTEMS: ENT: No diminished vision or hearing. CARDIOVASCULAR: As mentioned earlier. RESPIRATORY: As mentioned earlier. GI: No nausea or vomiting. : No dysuria. NERVOUS SYSTEM: No numbness or weakness. ALLERGY/IMMUNOLOGY: No asthma or hayfever. MUSCULOSKELETAL: As mentioned earlier. HEMATOLOGY: No history of anemia. ENDOCRINE: No history of diabetes or hypothyroidism. CONSTITUTIONAL: As mentioned earlier. DERMATOLOGY: Negative. RHEUMATOLOGY: Negative. PSYCHIATRY: As mentioned earlier. PHYSICAL EXAMINATION: GENERAL: Patient is alert and oriented times three. VITAL SIGNS: Pulse 103, blood pressure 131/78, respirations 18, temperature 98.5, pulse ox 96% on room air. HEENT: Conjunctivae normal. Oral mucosa moist. NECK: No jugular venous distention. No carotid bruits. No lymph node enlargement. RESPIRATORY: Breath sounds diminished at the bases. A few scattered rhonchi. HEART: S1 and S2, muffled. No S3 or S4. ABDOMEN: Soft, no tenderness. No masses palpable. EXTREMITIES: No edema, no swelling. NERVOUS: Higher functions as mentioned earlier. Moves all four limbs. No focal motor or sensory deficits. LYMPHATICS: No lymph nodes palpable in the neck or axillae. SKIN: Diffuse scarring present on the left side of the chest. LAB: At this time show CBC within normal limits and D-dimer is 4.31, magnesium is 1.5, glucose is 112, albumin is 2.9. ASSESSMENT: 1. Chest pain for evaluation, rule out coronary artery disease, unstable angina. 2. Elevated D-dimer without any evidence of pulmonary embolism. 3. 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 4. Recent COVID-19 pneumonia and prolonged hospital stay. 5. Mild protein calorie malnutrition. 6. Hypomagnesemia. 7. History of asthma. 8. History of coronary artery disease with stent. 9. History of congestive heart failure. 10.Hypertension. 11.Hyperlipidemia. 12.History of DJD. 13.History of hiatal hernia. 14.History of stress incontinence. 15.History of skin graft from [place]. 16.Gait dysfunction. RECOMMENDATIONS AND DISCUSSION: In this 75-year-old woman who presented with multiple complex medical issues, we will monitor the patient closely. Continue the current medications, continue symptomatic treatment. I would recommend serial troponins. Cardiology consultation and 2D echo with Doppler. Otherwise, resume the home medications. PT, OT evaluation. Prognosis guarded because of multiple complex medical issues and further recommendations to follow. Discussed with the family at length at this time. The daughter would like the patient to return home. We will continue to monitor. MMODL / IJN: [id number] / CALI
[2020-08-18 16:37] LABS: C Reactive Protein 1.1 mg/dL (<1.0)
[2020-08-18] MEDS: OXYBUTYNIN CHLORIDE 5 MG TAB PO SCH ×2 (17:59→22:30)
[2020-08-18] MEDS: NITROGLYCERIN OINT 1 INCH/GM PACKET TOPICAL SCH (18:00)
[2020-08-18 19:32] LABS: Appearance,Urine Cloudy (Clear); Bilirubin,Urine Negative (Negative); Blood,Urine Small (Negative); Color,Urine Light Yellow; Glucose,Urine (UA) Negative (Negative); Ketones,Urine Negative (Negative); Leukocyte Esterase,Urine Large (Negative); Mucus,Urine Rare /hpf; Nitrite,Urine Negative (Negative); Protein,Urine 1+ (Negative); RBC,Urine 27 /hpf (0-5); Squamous Epithelial Cell,Urine 1 /hpf (0-4); Urobilinogen,Urine <2.0 mg/dL (<2.0); WBC,Urine >182 /hpf (0-5)
[2020-08-18] MEDS: SERTRALINE 50 MG TAB PO SCH (21:08)
[2020-08-19] MEDS: NITROGLYCERIN OINT 1 INCH/GM PACKET TOPICAL SCH ×2 (00:32→06:16)
[2020-08-19 03:40] LABS: Ferritin 144.1 ng/mL (10.0-291.0)
[2020-08-19] MEDS: ACETAMINOPHEN TAB 325 MG TAB PO PRN (08:36)
[2020-08-19] MEDS: amLODIPine 5 MG TAB PO SCH (08:40)
[2020-08-19] MEDS: PANTOPRAZOLE 40 MG/10 ML VIAL IVP SCH ×2 (08:40→20:03)
[2020-08-19] MEDS: ENOXAPARIN 40 MG/0.4 ML SYRINGE SQ SCH (08:40)
[2020-08-19] MEDS: ASPIRIN 81 MG PO SCH (08:40)
[2020-08-19] MEDS ORDERED: AMINOPHYLLINE 500 MG/20 ML VIAL IV PRN (08:53)
[2020-08-19] MEDS ORDERED: CAFFEINE CITRATE 60 MG/3 ML VIAL IV PRN (08:53)
[2020-08-19] MEDS ORDERED: REGADENOSON 0.4 MG/5 ML SYRINGE IV PRN (08:53)
[2020-08-19] MEDS ORDERED: NON FORMULARY DRUG (Aspirin Ec 325 MG Tablet.Dr) PO SCH (09:00)
[2020-08-19] MEDS ORDERED: ASPIRIN 325 MG TAB PO SCH (09:00)
[2020-08-19] MEDS: OXYBUTYNIN CHLORIDE 5 MG TAB PO SCH ×3 (09:27→22:55)
--- NOTE | 2020-08-19 09:38 | ECHOF ---
Referral Reason: MEASUREMENTS -------- HEIGHT: 152.4 cm WEIGHT: 47.6 kg BP: 112/73 IVSd: 1.4 cm (0.6 - 1.1) LVIDd: 2.0 cm (3.9 - 5.3) LVPWd: 1.4 cm (0.6 - 1.1) IVSs: 1.7 cm LVIDs: 1.2 cm LVPWs: 1.2 cm FINDINGS -------- Resting tachycardia (HR>100bpm). This was a technically adequate study. Limited Study The left ventricular size is normal. There is moderate concentric left ventricular hypertrophy. O verall left ventricular systolic function is normal with, an EF between 55 - 60 %. There is no pericardial effusion. CONCLUSIONS -------- 1. The left ventricular size is normal. 2. There is moderate concentric left ventricular hypertrophy. 3. Overall left ventricular systolic function is normal with, an EF between 55 - 60 %. HEAD HOUSEKEEPER: Lynsey Valente [facility]
[2020-08-19 10:06] LABS: Basophils # (A) 0.04 X 10*3/uL (0.00-0.10); Basophils % (A) 0.9 %; Eosinophils # (A) 0.12 X 10*3/uL (0.04-0.35); Eosinophils % (A) 2.7 %; HCT 30.9 % (37.2-46.3); HGB 9.9 g/dL (12.0-15.0); Lymphocytes # (A) 1.28 X 10*3/uL (0.90-5.00); Lymphocytes % (A) 28.7 %; MCH 28.8 pg (27.0-32.0); MCV 89.8 fL (80.0-97.0); Mean Platelet Volume 11.1 fL (9.5-12.2); Monocytes # (A) 0.39 X 10*3/uL (0.20-1.00); Monocytes % (A) 8.7 %; Neutrophils # (A) 2.59 X 10*3/uL (1.80-7.70); Neutrophils % (A) 58.1 %; Platelet Count 186 X 10*3/uL (140-440); RBC 3.44 X 10*6/uL (4.10-5.20); RDW 15.5 % (11.5-14.5); WBC 4.46 X 10*3/uL (4.50-10.00)
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
[2020-08-19 10:53] VITALS: BMI 20.5
[2020-08-19] MEDS: MULTIVITAMINS, THERA 1 EACH TAB PO SCH (12:15)
[2020-08-19] MEDS: THIAMINE 100 MG TAB PO SCH (12:15)
[2020-08-19] MEDS: FOLIC ACID 1 MG TAB PO SCH (12:37)
--- NOTE | 2020-08-19 12:42 | NM ---
EXAMINATION TYPE: NM stress lexiscan cardiolite DATE OF EXAM: 08/19/2020 COMPARISON: NONE HISTORY: Pain TECHNIQUE: After the intravenous administration of 10.3 mCi Tc 99m Sestamibi - Cardiolite resting SP ECT images acquired 45 minutes post injection. The patient received 0.4mg Lexiscan, 24.0 mCi Tc 99m Sestamibi - Stress images obtained [address] injection FINDINGS: Review of stress and rest SPECT images demonstrates no distinct perfusion abnormality. Gated analysi s shows normal wall motion with an estimated left ventricular ejection fraction of 86 %. IMPRESSION: No scintigraphic evidence for reversible ischemia.
[2020-08-19 14:56] LABS: African American GFR (CKD) 101.9 (60.0-200.0); Anion Gap 6.4 mmol/L (4.00-12.00); BUN/Creat Ratio 23.33 Ratio (12.00-20.00); Calcium 8.3 mg/dL (8.7-10.3); Carbon Dioxide 24.6 mmol/L (21.6-31.8); Chol/HDL Ratio 3.82; Non-African American GFR(CKD) 87.9 (60.0-200.0); Potassium 3.8 mmol/L (3.5-5.5)
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
[2020-08-19] MEDS: ASCORBIC ACID 500 MG TAB PO SCH (16:18)
[2020-08-19] MEDS: ZINC SULFATE 220 MG CAP PO SCH (16:18)
--- NOTE | 2020-08-19 18:35 | P.STRESS ---
- Stress Test Note Stress Test Results/Findings: Exam Performed: NM stress lexiscan cardiolite Exam Date: 08/19/20 Reason for Exam: Chest Pain Height: 5 ft Weight: 47.63 kg Protocol: Lexiscan Stage: na Duration of Exercise: na Resting Heart Rate: 90 Resting Blood Pressure: 121/96 Maximum Achieved Heart Rate: 125 Maximum Achieved Blood Pressure: 138/78 85% PMHR: 122 100% PMHR: 143 METS: na Technologist Comment: Stress Test Results/Findings: This is a 75-year-old female with history of hypertension, family history of ischemic heart disease being evaluated first chest pains. Patient also has asthma. Stress data: Baseline EKG showed sinus rhythm with normal [place]/QRS duration. Blood pressure at rest is 120/96 with pulse rate of 90. A standard dose of Lexiscan was infused EKGs taken during and after infusion did not reveal significant changes from the baseline. Final impression: #1. Negative Lexiscan stress test #2. Report on the nuclear portion of the test to be provided by radiologist.
[2020-08-19] MEDS: SERTRALINE 50 MG TAB PO SCH (20:03)
[2020-08-20] MEDS: ASPIRIN 81 MG PO SCH (08:33)
[2020-08-20] MEDS: PANTOPRAZOLE 40 MG/10 ML VIAL IVP SCH (08:33)
[2020-08-20] MEDS: amLODIPine 5 MG TAB PO SCH (08:33)
[2020-08-20] MEDS: ZINC SULFATE 220 MG CAP PO SCH (08:33)
[2020-08-20] MEDS: OXYBUTYNIN CHLORIDE 5 MG TAB PO SCH ×3 (08:33→23:05)
[2020-08-20] MEDS: ASCORBIC ACID 500 MG TAB PO SCH (08:33)
[2020-08-20] MEDS: ENOXAPARIN 40 MG/0.4 ML SYRINGE SQ SCH (08:34)
--- NOTE | 2020-08-20 08:56 | ECHOS ---
Stress Test Results/Findings: Exam Performed: NM stress lexiscan cardiolite Exam Date: 08/19/20 Reason for Exam: Chest Pain Height: 5 ft Weight: 47.63 kg Protocol: Lexiscan Stage: na Duration of Exercise: na Resting Heart Rate: 90 Resting Blood Pressure: 121/96 Maximum Achieved Heart Rate: 125 Maximum Achieved Blood Pressure: 138/78 85% PMHR: 122 100% PMHR: 143 METS: na Technologist Comment: Stress Test Results/Findings: This is a 75-year-old female with history of hypertension, family history of ischemic heart disease being evaluated first chest pains. Patient also has asthma. Stress data: Baseline EKG showed sinus rhythm with normal [place]/QRS duration. Blood pressure at rest is 120/96 with pulse rate of 90. A standard dose of Lexiscan was infused EKGs taken during and after infusion did not reveal significant changes from the baseline. Final impression: #1. Negative Lexiscan stress test #2. Report on the nuclear portion of the test to be provided by radiologist. CALI
[2020-08-20] MEDS ORDERED: DOCUSATE ORAL SOLN 100 MG/10 ML CUP PO PRN (11:00)
[2020-08-20] MEDS ORDERED: SENNOSIDES 8.6 MG TAB PO PRN (11:00)
[2020-08-20] MEDS: DOCUSATE 100 MG CAP PO SCH ×2 (11:20→23:05)
[2020-08-20] MEDS: MULTIVITAMINS, THERA 1 EACH TAB PO SCH (12:19)
[2020-08-20] MEDS: THIAMINE 100 MG TAB PO SCH (12:19)
[2020-08-20] MEDS: FOLIC ACID 1 MG TAB PO SCH (12:19)
[2020-08-20] MEDS: SODIUM CHLORIDE 0.9% 1,000 ML IV SCH (13:05)
[2020-08-20] MEDS: PANTOPRAZOLE 40 MG TABLET PO SCH (16:22)
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
[2020-08-20] MEDS: SERTRALINE 50 MG TAB PO SCH (23:06)
[2020-08-21] MEDS: ACETAMINOPHEN TAB 325 MG TAB PO PRN ×2 (01:04→16:34)
[2020-08-21] MEDS: PANTOPRAZOLE 40 MG TABLET PO SCH ×2 (07:58→15:43)
[2020-08-21] MEDS: DOCUSATE 100 MG CAP PO SCH ×2 (09:03→20:04)
[2020-08-21] MEDS: amLODIPine 5 MG TAB PO SCH (09:03)
[2020-08-21] MEDS: OXYBUTYNIN CHLORIDE 5 MG TAB PO SCH ×3 (09:03→20:04)
[2020-08-21] MEDS: ZINC SULFATE 220 MG CAP PO SCH (09:03)
[2020-08-21] MEDS: ENOXAPARIN 40 MG/0.4 ML SYRINGE SQ SCH (09:04)
[2020-08-21] MEDS: ASPIRIN 81 MG PO SCH (09:04)
[2020-08-21] MEDS: ASCORBIC ACID 500 MG TAB PO SCH (09:04)
[2020-08-21] MEDS: THIAMINE 100 MG TAB PO SCH (12:37)
[2020-08-21] MEDS: FOLIC ACID 1 MG TAB PO SCH (12:37)
[2020-08-21] MEDS: MULTIVITAMINS, THERA 1 EACH TAB PO SCH (12:37)
[2020-08-21] MEDS: SODIUM CHLORIDE 0.9% 1,000 ML IV SCH (14:56)
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
[2020-08-21] MEDS: SERTRALINE 50 MG TAB PO SCH (20:04)
[2020-08-22] MEDS: ACETAMINOPHEN TAB 325 MG TAB PO PRN (00:56)
[2020-08-22] MEDS: DOCUSATE 100 MG CAP PO SCH ×2 (08:12→19:53)
[2020-08-22] MEDS: ASPIRIN 81 MG PO SCH (08:12)
[2020-08-22] MEDS: ENOXAPARIN 40 MG/0.4 ML SYRINGE SQ SCH (08:12)
[2020-08-22] MEDS: ZINC SULFATE 220 MG CAP PO SCH (08:12)
[2020-08-22] MEDS: PANTOPRAZOLE 40 MG TABLET PO SCH ×2 (08:12→17:18)
[2020-08-22] MEDS: amLODIPine 5 MG TAB PO SCH (08:12)
[2020-08-22] MEDS: OXYBUTYNIN CHLORIDE 5 MG TAB PO SCH ×3 (08:13→19:53)
[2020-08-22] MEDS: ASCORBIC ACID 500 MG TAB PO SCH (08:13)
[2020-08-22] MEDS ORDERED: ERGOCALCIFEROL 1,250 MCG (50,000 IU) CAPSULE PO SCH (09:00)
[2020-08-22] MEDS: THIAMINE 100 MG TAB PO SCH (11:25)
[2020-08-22] MEDS: FOLIC ACID 1 MG TAB PO SCH (11:25)
[2020-08-22] MEDS: MULTIVITAMINS, THERA 1 EACH TAB PO SCH (11:25)
[2020-08-22] MEDS: SODIUM CHLORIDE 0.9% 1,000 ML IV SCH (16:07)
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
[2020-08-22] MEDS: SERTRALINE 50 MG TAB PO SCH (19:53)
[2020-08-23] MEDS: ONDANSETRON 4 MG/2 ML VIAL IVP PRN ×3 (04:49→21:52)
[2020-08-23] MEDS: ASPIRIN 81 MG PO SCH (08:04)
[2020-08-23] MEDS: ZINC SULFATE 220 MG CAP PO SCH (08:04)
[2020-08-23] MEDS: ASCORBIC ACID 500 MG TAB PO SCH (08:04)
[2020-08-23] MEDS: FOLIC ACID 1 MG TAB PO SCH (08:04)
[2020-08-23] MEDS: DOCUSATE 100 MG CAP PO SCH ×2 (08:04→22:52)
[2020-08-23] MEDS: OXYBUTYNIN CHLORIDE 5 MG TAB PO SCH ×3 (08:04→22:52)
[2020-08-23] MEDS: MULTIVITAMINS, THERA 1 EACH TAB PO SCH (08:04)
[2020-08-23] MEDS: THIAMINE 100 MG TAB PO SCH (08:04)
[2020-08-23] MEDS: amLODIPine 5 MG TAB PO SCH (08:04)
[2020-08-23] MEDS: PANTOPRAZOLE 40 MG TABLET PO SCH (08:04)
[2020-08-23] MEDS: ENOXAPARIN 40 MG/0.4 ML SYRINGE SQ SCH (08:05)
[2020-08-23] MEDS: HYDROcodone/APAP 5-325MG 1 EACH TAB PO PRN (08:11)
--- NOTE | 2020-08-23 09:12 | P.PN ---
Progress Note - Text Progress Note Date: 08/23/20 Patient will be requiring a wheelchair upon discharge to complete ADLs which is unable to be done with a cane or walker due to weakness and unsteady gait. Patient is able to self propel and does have family that we'll be able to propel them for assistance.
[2020-08-23] MEDS: SODIUM CHLORIDE 0.9% 1,000 ML IV SCH (11:41)
[2020-08-23] MEDS: METOCLOPRAMIDE 5 MG/ML 2 ML VIAL IVP PRN (12:03)
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
[2020-08-23 18:01] LABS: African American GFR (CKD) >90 (>60 ml/min/1.73 sqM); Anion Gap 4 mmol/L; Blood Urea Nitrogen 13 mg/dL (7-17); Calcium 9.3 mg/dL (8.4-10.2); Carbon Dioxide 38 mmol/L (22-30); Chloride 98 mmol/L (98-107); Glucose 137 mg/dL (74-99); Non-African American GFR(CKD) >90 (>60 ml/min/1.73 sqM); Potassium 3.5 mmol/L (3.5-5.1); Sodium 140 mmol/L (137-145)
[2020-08-23 18:25] LABS: Basophils % (A) 0 %; Eosinophils % (A) 0 %; HCT 37.5 % (34.0-46.0); HGB 12.4 gm/dL (11.4-16.0); Lymphocytes # (A) 1.4 k/uL (1.0-4.8); Lymphocytes % (A) 15 %; MCH 28.7 pg (25.0-35.0); MCHC 33.2 g/dL (31.0-37.0); MCV 86.6 fL (80.0-100.0); Mean Platelet Volume 8.2; Monocytes # (A) 0.4 k/uL (0-1.0); Monocytes % (A) 5 %; Neutrophils # (A) 6.9 k/uL (1.3-7.7); Neutrophils % (A) 78 %; Platelet Count 326 k/uL (150-450); RBC 4.33 m/uL (3.80-5.40); RDW 14.9 % (11.5-15.5); WBC 8.8 k/uL (3.8-10.6)
--- NOTE | 2020-08-23 19:22 | XR ---
EXAMINATION TYPE: XR abdomen acute w cxr DATE OF EXAM: 08/23/2020 COMPARISON: CT chest 08/18/2020, CT abdomen pelvis 03/22/2016 HISTORY: Nausea and vomiting TECHNIQUE: Supine, upright, and frontal chest views of the abdomen and chest are obtained. FINDINGS: Colonic interposition noted anterior to the liver, dilated loop of colon present in the ri ght upper quadrant, there is persistent elevation right hemidiaphragm. Postop changes are noted statu s post lumbar fusion. Marked arthropathy, distortion of the left femoral head is noted, difficult to exclude impacted fracture. There is no evidence for pneumoperitoneum on the upright chest view. The bowel gas pattern is nondistended other than the colonic loop in the right upper quadrant, air-fl uid level present within the stomach. No decubitus view submitted. No unusual calcifications. Calcified fibroid present in the right hemipelvis, there are phleboliths present within the pelvis. IMPRESSION: There are some limitations to the exam. Findings could represent an underlying ileus, if obstruction is suspected clinically then additional imaging is recommended. Additional findings above
[2020-08-23] MEDS: PANTOPRAZOLE 40 MG/10 ML VIAL IVP SCH (21:51)
[2020-08-23] MEDS: SERTRALINE 50 MG TAB PO SCH (22:52)
[2020-08-24] MEDS: METOCLOPRAMIDE 5 MG/ML 2 ML VIAL IVP PRN ×3 (01:29→23:29)
[2020-08-24 06:07] LABS: Appearance,Urine Cloudy (Clear); Bacteria,Urine Rare /hpf; Bilirubin,Urine Negative (Negative); Blood,Urine Negative (Negative); Color,Urine Yellow; Glucose,Urine (UA) Negative (Negative); Hyaline Casts,Urine 3 /lpf (0-2); Ketones,Urine Negative (Negative); Leukocyte Esterase,Urine Large (Negative); Mucus,Urine Few /hpf; Nitrite,Urine Negative (Negative); PH, Urine 7.5 (5.0-8.0); Protein,Urine Trace (Negative); RBC,Urine 1 /hpf (0-5); Squamous Epithelial Cell,Urine 5 /hpf (0-4); Urobilinogen,Urine <2.0 mg/dL (<2.0); WBC,Urine 179 /hpf (0-5)
--- NOTE | 2020-08-24 08:47 | XR ---
KUB HISTORY: Ileus KUB correlated to abdomen 08/23/2020 Distention of bowel in the right upper quadrant site likely to be somewhat improved although the ent toña upper abdomen is not included on the exam. No other significant interval change. IMPRESSION: There may be some improvement in the bowel gas pattern.
[2020-08-24] MEDS: ASPIRIN 81 MG PO SCH (09:18)
[2020-08-24] MEDS: DOCUSATE 100 MG CAP PO SCH ×2 (09:18→23:31)
[2020-08-24] MEDS: amLODIPine 5 MG TAB PO SCH (09:18)
[2020-08-24] MEDS: ZINC SULFATE 220 MG CAP PO SCH (09:18)
[2020-08-24] MEDS: ASCORBIC ACID 500 MG TAB PO SCH (09:18)
[2020-08-24] MEDS: OXYBUTYNIN CHLORIDE 5 MG TAB PO SCH ×3 (09:18→23:31)
[2020-08-24] MEDS: PANTOPRAZOLE 40 MG/10 ML VIAL IVP SCH ×2 (09:18→23:31)
[2020-08-24] MEDS: ONDANSETRON 4 MG/2 ML VIAL IVP PRN ×2 (09:19→20:28)
[2020-08-24] MEDS: ENOXAPARIN 40 MG/0.4 ML SYRINGE SQ SCH (09:20)
[2020-08-24] MEDS: MULTIVITAMINS, THERA 1 EACH TAB PO SCH (11:10)
[2020-08-24] MEDS: THIAMINE 100 MG TAB PO SCH (11:10)
[2020-08-24] MEDS: FOLIC ACID 1 MG TAB PO SCH (11:10)
[2020-08-24] MEDS: ACETAMINOPHEN TAB 325 MG TAB PO PRN (11:58)
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
[2020-08-24] MEDS: SODIUM CHLORIDE 0.9% 1,000 ML IV SCH (13:44)
[2020-08-24] MEDS: HYDROcodone/APAP 5-325MG 1 EACH TAB PO PRN (15:01)
[2020-08-24] MEDS: HYDROmorphone 0.5 MG/0.5 ML SYRINGE IVP PRN (17:36)
[2020-08-24] MEDS ORDERED: PANTOPRAZOLE 40 MG TABLET PO SCH (21:00)
[2020-08-24] MEDS: SERTRALINE 50 MG TAB PO SCH (23:31)
[2020-08-25 06:34] LABS: Basophils % (A) 1 %; Eosinophils % (A) 1 %; HCT 34.4 % (34.0-46.0); HGB 11.4 gm/dL (11.4-16.0); Lymphocytes # (A) 1.6 k/uL (1.0-4.8); Lymphocytes % (A) 25 %; MCV 87.8 fL (80.0-100.0); Monocytes # (A) 0.4 k/uL (0-1.0); Monocytes % (A) 7 %; Neutrophils # (A) 4.3 k/uL (1.3-7.7); Neutrophils % (A) 65 %; Platelet Count 338 k/uL (150-450); RBC 3.92 m/uL (3.80-5.40); RDW 14.9 % (11.5-15.5); WBC 6.6 k/uL (3.8-10.6)
[2020-08-25] MEDS: ASPIRIN 81 MG PO SCH (09:02)
[2020-08-25] MEDS: ZINC SULFATE 220 MG CAP PO SCH (09:02)
[2020-08-25] MEDS: amLODIPine 5 MG TAB PO SCH (09:02)
[2020-08-25] MEDS: DOCUSATE 100 MG CAP PO SCH ×2 (09:02→19:31)
[2020-08-25] MEDS: ASCORBIC ACID 500 MG TAB PO SCH (09:02)
[2020-08-25] MEDS: OXYBUTYNIN CHLORIDE 5 MG TAB PO SCH ×3 (09:03→19:34)
[2020-08-25] MEDS: PANTOPRAZOLE 40 MG/10 ML VIAL IVP SCH ×2 (09:03→19:31)
[2020-08-25] MEDS: ENOXAPARIN 40 MG/0.4 ML SYRINGE SQ SCH (09:04)
[2020-08-25] MEDS: ONDANSETRON 4 MG/2 ML VIAL IVP PRN ×2 (09:13→19:30)
[2020-08-25] MEDS: HYDROmorphone 0.5 MG/0.5 ML SYRINGE IVP PRN (10:53)
[2020-08-25] MEDS: FOLIC ACID 1 MG TAB PO SCH (11:58)
[2020-08-25] MEDS: MULTIVITAMINS, THERA 1 EACH TAB PO SCH (11:59)
[2020-08-25] MEDS: THIAMINE 100 MG TAB PO SCH (11:59)
[2020-08-25] MEDS: SODIUM CHLORIDE 0.9% 1,000 ML IV SCH (13:03)
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
[2020-08-25] MEDS ORDERED: PROPOFOL 10 MG/ML 20 ML VIAL IV ONE (14:37)
[2020-08-25] MEDS ORDERED: LIDOCAINE 1% INJ 10MG/ML (20 ML MDV) ONE (14:37)
[2020-08-25] MEDS ORDERED: IV FLUID CONTINUATION 1,000 ML IV ONE ×2 (14:39)
[2020-08-25] MEDS ORDERED: SODIUM CHLORIDE 0.9% 500 ML 500 ML IV ONE (14:56)
--- NOTE | 2020-08-25 15:05 | P.PCN ---
Date of Procedure: 08/25/20 Description of Procedure: BRIEF HISTORY: 75-year-old female who came into the emergency department on 08/18/20 and was admitted for chest pain with dyspnea and nausea. The patient had a full cardiology workup with a negative stress test, echocardiogram with an ejection fraction of 55-60%, acute coronary event being ruled out. She has a past medical history of coronary artery disease with stent, heart failure, hyperlipidemia, hypertension, osteoarthritis, and hiatal hernia. Apparently yesterday the patient started complaining of nausea and vomiting. She has a significant past medical history of nausea and vomiting, which she states happens intermittently after eating. She currently takes Protonix at home. She's had 2 previous upper endoscopies in 2014 and 2015. [address] Orr findings included gastritis with no evidence of gastric outlet ob struction. In 2014 she underwent EGD and colonoscopy by Dr. Patino for abdominal pain, nausea vomiting with findings of a sliding hiatal hernia, mild antral gastritis, and sigmoid diverticulosis. 2 HTN several episodes of vomiting yesterday. She states sometimes it just feels like when she swallows it has to come back up. She denies any pain with swallowing. She underwent acute abdominal x-ray series stating there are some limitations to the exam. Findings could represent an underlying ileus, obstruction is suspected clinically then additional imaging is recommended. Additional findings as above. There is colonic interposition noted anterior to the liver, dilated loop of colon present in the right upper quadrant, there is persistent elevation right hemidiaphragm. PROCEDURE PERFORMED: Esophagogastroduodenoscopy with biopsy. PREOPERATIVE DIAGNOSIS: Nausea and vomiting, coffee-ground emesis. ESTIMATED BLOOD LOSS: Minimal. IV sedation per anesthesia. PROCEDURE: After informed consent was obtained, the patient was brought into the endoscopy unit. IV sedation was administered by Anesthesia under continuous monitoring. Initially the Olympus GIF-190 video endoscope was inserted into the mouth. Esophagus intubated without any difficulty. It was gradually advanced into the stomach and duodenum and carefully examined. The bulb and the second part of the duodenum appeared normal. The scope at this time was withdrawn to the stomach, adequately insufflated with air, and upon careful examination, mucosa of the antrum, body, cardia and the fundus appeared normal Except for some mild punctate erythema suggestive of mild gastritis in the antrum and body which was biopsied. There was also a large amount of liquid with some solid debris found in the cardia, fundus and body of the stomach which was suctioned. There is no evidence of active bleeding or old bleeding. The scope was then withdrawn into the esophagus. The GE junction was located at 35 cm from the incisors With a 2 cm hiatal hernia noted . The esophagus appeared normal, Except for distal erythema suggestive of LA grade B distal esophagitis . There were no erosions or ulcerations seen and the patient tolerated the procedure well. IMPRESSION: 1. Mild gastritis. 2. LA grade B distal esophagitis. 3. Retained liquid and food debris in the stomach which was suctioned. 4. No active bleeding or old blood noted. RECOMMENDATIONS: The findings of this examination were discussed with the patient.. Okay to resume diet. Okay to resume medications. Continue acid suppression therapy. Continue other current medical management. Okay for discharge on otherwise medically stable.
[2020-08-25] MEDS: SERTRALINE 50 MG TAB PO SCH (19:31)
[2020-08-25] MEDS: ACETAMINOPHEN TAB 325 MG TAB PO PRN (19:32)
[2020-08-26] MEDS: METOCLOPRAMIDE 5 MG/ML 2 ML VIAL IVP PRN ×2 (01:04→10:19)
[2020-08-26] MEDS: HYDROmorphone 0.5 MG/0.5 ML SYRINGE IVP PRN (01:08)
[2020-08-26 07:45] VITALS: BP 131/76; PULSE 96; RESP 16; TEMP 97.9
[2020-08-26] MEDS: PANTOPRAZOLE 40 MG/10 ML VIAL IVP SCH (08:06)
[2020-08-26] MEDS: ASPIRIN 81 MG PO SCH (08:06)
[2020-08-26] MEDS: ZINC SULFATE 220 MG CAP PO SCH (08:06)
[2020-08-26] MEDS: ASCORBIC ACID 500 MG TAB PO SCH (08:07)
[2020-08-26] MEDS: DOCUSATE 100 MG CAP PO SCH (08:07)
[2020-08-26] MEDS: amLODIPine 5 MG TAB PO SCH (08:07)
[2020-08-26] MEDS: OXYBUTYNIN CHLORIDE 5 MG TAB PO SCH (08:08)
[2020-08-26] MEDS: ACETAMINOPHEN TAB 325 MG TAB PO PRN (08:21)
[2020-08-26] MEDS: THIAMINE 100 MG TAB PO SCH (11:32)
[2020-08-26] MEDS: MULTIVITAMINS, THERA 1 EACH TAB PO SCH (11:32)
[2020-08-26] MEDS: FOLIC ACID 1 MG TAB PO SCH (11:32)
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
[2020-08-26] MEDS: SODIUM CHLORIDE 0.9% 1,000 ML IV SCH (13:55)
== END 2020-08-26 14:50 | disposition home health service (06) | DRG 872 ==
LOC: EC 09:54 → 6NMEDSUR 12:52 → OBSVTOIN 08-20 11:37
PROVIDERS: ADMIT Internal Medicine; ATTEND Internal Medicine
PROC: 0DB38ZX Excision of Lower Esophagus, Via Natural or Artificial Opening Endoscopic, Diagnostic (ICD-10-PCS; principal; 2020-08-25 08:30)
DX: A41.89 Other specified sepsis (principal); E44.1 Mild protein-calorie malnutrition; N39.0 Urinary tract infection, site not specified; J98.11 Atelectasis; I11.0 Hypertensive heart disease with heart failure; I50.9 Heart failure, unspecified; J44.9 Chronic obstructive pulmonary disease, unspecified; Z20.822 Contact with and (suspected) exposure to COVID-19; J98.6 Disorders of diaphragm; K29.70 Gastritis, unspecified, without bleeding; K20.90 Esophagitis, unspecified without bleeding; R07.89 Other chest pain; E78.5 Hyperlipidemia, unspecified; E83.42 Hypomagnesemia; I25.10 Atherosclerotic heart disease of native coronary artery without angina pectoris; M19.90 Unspecified osteoarthritis, unspecified site; K44.9 Diaphragmatic hernia without obstruction or gangrene; K59.00 Constipation, unspecified; K57.30 Diverticulosis of large intestine without perforation or abscess without bleeding; N39.3 Stress incontinence (female) (male); R26.81 Unsteadiness on feet; Z68.20 Body mass index [BMI] 20.0-20.9, adult; Z79.82 Long term (current) use of aspirin; Z79.51 Long term (current) use of inhaled steroids; Z79.899 Other long term (current) drug therapy; Z95.5 Presence of coronary angioplasty implant and graft; Z87.2 Personal history of diseases of the skin and subcutaneous tissue; Z94.5 Skin transplant status; Z98.890 Other specified postprocedural states; Z71.3 Dietary counseling and surveillance; Z88.0 Allergy status to penicillin; Z91.048 Other nonmedicinal substance allergy status; Z82.49 Family history of ischemic heart disease and other diseases of the circulatory system; Z83.2 Family history of diseases of the blood and blood-forming organs and certain disorders involving the immune mechanism
CPT/HCPCS: 36415; 43239; 71046; 71275; 74018; 74022; 78452; 80048; 80053; 80061; 81001; 82728; 83605; 83615; 83735; 83880; 84484; 85025; 85379; 85610; 85652; 85730; 86140; 87040; 87070; 87086; 87205; 87635; 88305; 88312; 93005; 93017; 93308; 94760; 99285

== ENCOUNTER 2020-08-27 07:25 | Inpatient (IN) | payer MEDICARE, OTHER ==
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
[2020-08-27] MEDS ORDERED: ACETAMINOPHEN TAB 325 MG TAB PO STA (07:52)
[2020-08-27 08:02] LABS: Basophils % (A) 0 %; Eosinophils # (A) 0.1 k/uL (0-0.7); Eosinophils % (A) 1 %; HCT 30.4 % (34.0-46.0); HGB 10.4 gm/dL (11.4-16.0); Lymphocytes # (A) 1.5 k/uL (1.0-4.8); Lymphocytes % (A) 24 %; MCH 29.1 pg (25.0-35.0); MCV 85.4 fL (80.0-100.0); Monocytes # (A) 0.6 k/uL (0-1.0); Monocytes % (A) 9 %; Neutrophils % (A) 63 %; Platelet Count 355 k/uL (150-450); RBC 3.56 m/uL (3.80-5.40); RDW 14.8 % (11.5-15.5); WBC 6.5 k/uL (3.8-10.6)
[2020-08-27 08:13] LABS: ALT 23 U/L (4-34); AST 33 U/L (14-36); African American GFR (CKD) >90 (>60 ml/min/1.73 sqM); Albumin 2.8 g/dL (3.5-5.0); Alkaline Phosphatase 97 U/L (38-126); Amylase 53 U/L (30-110); Appearance,Urine Cloudy (Clear); Bacteria,Urine Rare /hpf; Bilirubin,Urine Negative (Negative); Blood Urea Nitrogen 15 mg/dL (7-17); Blood,Urine Negative (Negative); Calcium 8.2 mg/dL (8.4-10.2); Chloride 93 mmol/L (98-107); Color,Urine Yellow; Glucose 99 mg/dL (74-99); Glucose,Urine (UA) Negative (Negative); Ketones,Urine 1+ (Negative); Leukocyte Esterase,Urine Moderate (Negative); Lipase 49 U/L (23-300); Magnesium 1.7 mg/dL (1.6-2.3); Mucus,Urine Occasional /hpf; Nitrite,Urine Negative (Negative); Non-African American GFR(CKD) >90 (>60 ml/min/1.73 sqM); PH, Urine 6.5 (5.0-8.0); Protein,Urine Trace (Negative); Sodium 136 mmol/L (137-145); Specific Gravity,Urine 1.026 (1.001-1.035); Squamous Epithelial Cell,Urine 25 /hpf (0-4); Total Bilirubin 0.4 mg/dL (0.2-1.3); Total Protein 5.2 g/dL (6.3-8.2); Urobilinogen,Urine <2.0 mg/dL (<2.0); WBC,Urine 17 /hpf (0-5)
[2020-08-27 08:19] LABS: Anion Gap 6 mmol/L
[2020-08-27 08:20] LABS: Carbon Dioxide 37 mmol/L (22-30); Potassium 2.5 mmol/L (3.5-5.1)
--- NOTE | 2020-08-27 08:28 | XR ---
EXAMINATION TYPE: XR chest 2V DATE OF EXAM: 08/27/2020 COMPARISON: CXR and CT chest 9 days ago. HISTORY: H/o CAD; Nausea and vomiting. Chest pain. TECHNIQUE: Frontal and lateral views of the chest are obtained. FINDINGS: Elevated right hemidiaphragm with gas prominent bowel loops at this level and colonic inter position. There is mild chronic parenchymal changes without suspicious new focal air space opacity, pleural effusion, or pneumothorax seen. The cardiac silhouette size is stable and within normal limi ts. The osseous structures are demineralized. IMPRESSION: Chronic changes without acute pulmonary process.
[2020-08-27] MEDS ORDERED: POTASSIUM CHLORIDE ER 20 MEQ TAB.ER PO STA (08:37)
[2020-08-27] MEDS ORDERED: ONDANSETRON 4 MG/2 ML VIAL IVP STA (08:37)
[2020-08-27] MEDS: POTASSIUM CHLORIDE 10 MEQ in WATER FOR INJECTION 1 100ML.BAG IVPB SCH ×7 (08:57→22:59)
--- NOTE | 2020-08-27 09:09 | CT ---
EXAMINATION TYPE: CT abdomen pelvis w con DATE OF EXAM: 08/27/2020 COMPARISON: 03/22/2016 HISTORY: Abdominal pain and vomitting for [address] DLP: 649.4 mGycm CONTRAST: CT scan of the abdomen and pelvis is performed without Oral Contrast and with IV Contrast, patient in jected with 100 ml mL of Isovue 300. FINDINGS: LUNG BASES-: No visible nodule. No infiltrate. LIVER/GB: No calcified gallstones. No space occupying hepatic lesion. Biliary tree is of normal ca liber. PANCREAS: No inflammation. No distinct mass. SPLEEN: No splenic enlargement. No lesion seen. ADRENALS: No nodule. No thickening. KIDNEYS/BLADDER: No hydronephrosis. No nephrolithiasis. Renal cystic changes seen. Urinary bladder grossly unremarkable. BOWEL: Again noted is marked gastric dilatation which is fluid-filled. This is unchanged from prior s tudy and correlate for gastric outlet obstruction. Fluid distended right hemicolon with more solid st ool distally. Small bowel appears to be of normal caliber. No free air or abscess. GENITAL ORGANS: Calcified uterine leiomyoma noted. LYMPH NODES: No greater than 1cm abdominal or pelvic lymph nodes are appreciated. AORTA: No significant abnormality. OSSEOUS STRUCTURES: No significant abnormality is seen. OTHER: No significant additional abnormality is seen. IMPRESSION: 1. Again noted is marked gastric dilatation which is fluid-filled. This is unchanged from prior study and correlate for gastric outlet obstruction. Fluid distended right hemicolon with more solid stool distally.
[2020-08-27 09:17] LABS: Partial Thromboplastin Time 22.1 sec (22.0-30.0); Prothrombin Time 10.4 sec (9.0-12.0)
[2020-08-27] MEDS ORDERED: NALOXONE 0.4 MG/ML 1 ML VIAL IV PRN (09:52)
[2020-08-27] MEDS ORDERED: ASPIRIN 81 MG PO STA (09:54)
--- NOTE | 2020-08-27 11:26 | NM ---
EXAMINATION TYPE: NM pul vent and perfuse DATE OF EXAM: 08/27/2020 COMPARISON: Chest x-ray same date HISTORY: Elevated troponin, chest pain and difficulty breathing, cough and wheezing TECHNIQUE: Utilizing inhalation of 64.9 mCi Tc 99m DTPA aerosol and intravenous injection of 4.9 mCi of Tc 99m MAA, ventilation and perfusion images are acquired post injection in multiple projections. FINDINGS: There is no evidence of mismatched defects. Elevated right hemidiaphragm is present as noted on prior chest x-ray. IMPRESSION: Low probability for pulmonary embolus.
[2020-08-27] MEDS ORDERED: SYMBICORT INHALATION PRN (11:42)
[2020-08-27] MEDS ORDERED: FLUTICASONE 50MCG/SPRAY NASAL 16GM EA NOSTRIL PRN (11:42)
[2020-08-27] MEDS: SODIUM CHLORIDE 0.9% 1,000 ML IV SCH (12:14)
--- NOTE | 2020-08-27 12:55 | XR ---
EXAMINATION TYPE: XR chest 1V confirm line [facility] DATE OF EXAM: 08/27/2020 COMPARISON: Prior exam 08/27/2020 HISTORY: NG tube placement TECHNIQUE: Single frontal view of the chest is obtained. FINDINGS: There is been interval placement of an NG tube, distal tip is not included on exam tube is coursing into the abdomen. Patchy basilar density within the lungs noted. No evident pneumothorax. E levated right hemidiaphragm with colonic interposition again seen. IMPRESSION: NG tube as described. Correlate for basilar atelectasis, pneumonia not excluded
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
[2020-08-27] MEDS: PANTOPRAZOLE 40 MG/10 ML VIAL IVP SCH ×2 (14:59→23:02)
[2020-08-27] MEDS ORDERED: POTASSIUM CHLORIDE ER 10 MEQ TAB.ER.PRT PO ONE (16:00)
[2020-08-27] MEDS: OXYBUTYNIN CHLORIDE 5 MG TAB PO SCH ×2 (16:18→23:07)
[2020-08-27] MEDS ORDERED: Potassium Replacement Protocol 1 EACH MISC MISCELLANE PRN (19:34)
[2020-08-28] MEDS: POTASSIUM CHLORIDE 10 MEQ in WATER FOR INJECTION 1 100ML.BAG IVPB SCH ×2 (00:18→01:53)
[2020-08-28] MEDS: HYDROcodone/APAP 5-325MG 1 EACH TAB PO PRN ×2 (01:53→16:31)
[2020-08-28] MEDS: SODIUM CHLORIDE 0.9% 1,000 ML IV SCH ×3 (01:57→22:36)
[2020-08-28 08:23] LABS: HCT 30.4 % (34.0-46.0); HGB 9.7 gm/dL (11.4-16.0); MCHC 31.7 g/dL (31.0-37.0); MCV 88.4 fL (80.0-100.0); Mean Platelet Volume 8.5; Platelet Count 354 k/uL (150-450); RBC 3.44 m/uL (3.80-5.40); RDW 15.2 % (11.5-15.5); WBC 5.6 k/uL (3.8-10.6)
[2020-08-28 08:36] LABS: African American GFR (CKD) >90 (>60 ml/min/1.73 sqM); Anion Gap 12 mmol/L; Blood Urea Nitrogen 12 mg/dL (7-17); Carbon Dioxide 28 mmol/L (22-30); Chloride 97 mmol/L (98-107); Magnesium 1.8 mg/dL (1.6-2.3); Non-African American GFR(CKD) >90 (>60 ml/min/1.73 sqM); Potassium 3.8 mmol/L (3.5-5.1); Sodium 137 mmol/L (137-145)
[2020-08-28 08:49] LABS: Glucose 43 mg/dL (74-99)
[2020-08-28 08:55] LABS: Glucose,Whole Blood 52 mg/dL (75-99)
[2020-08-28] MEDS ORDERED: DEXTROSE 50% SYRINGE 50 ML IVP STA (08:55)
[2020-08-28] MEDS: PANTOPRAZOLE 40 MG/10 ML VIAL IVP SCH (09:09)
[2020-08-28] MEDS: SERTRALINE 50 MG TAB PO SCH (09:09)
[2020-08-28] MEDS: FOLIC ACID 1 MG TAB PO SCH (09:09)
[2020-08-28] MEDS: ASPIRIN 81 MG PO SCH (09:09)
[2020-08-28] MEDS: OXYBUTYNIN CHLORIDE 5 MG TAB PO SCH ×3 (09:09→20:32)
[2020-08-28 09:12] LABS: Glucose,Whole Blood 296 mg/dL (75-99)
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
--- NOTE | 2020-08-28 15:27 | P.PN ---
Subjective Progress Note Date: 08/28/20 75-year-old the female was discharged yesterday from the hospital after she was treated for gastritis or peptic ulcer disease. Patient went home started vomiting comes back again patient appears to have a significant bowel distention stomach distention appears to have bowel obstruction. 2 surgery will be consulted patient will be admitted. Patient had low-grade fevers patient was discharged on antibiotics for urinary tract infection. Patient urine appears to be contaminated urine sample and the patient since patient is on antibiotics and will not be positive patient was comparing of abdominal discomfort. Patient the was recently treated for Covid 19 as well. 08/28/2020 Patient seen on follow-up resting in bed, no abdominal pain today. NG tube had 800 and also overnight, has had no further output from the NG tube today. She has good bowel sounds asking gas at this time. Review of Systems REVIEW OF SYSTEMS: CONSTITUTIONAL: No fever, no malaise, no fatigue. HEENT: No recent visual problems or hearing problems. Denied any sore throat. CARDIOVASCULAR: No chest pain, orthopnea, PND, no palpitations, no syncope. PULMONARY: No shortness of breath, no cough, no hemoptysis. GASTROINTESTINAL: No diarrhea. No abdominal pain HEMATOLOGICAL: Denies any bleeding or petechiae. Objective - Vital Signs Vital signs: Vital Signs Temp 99.3 F 08/28/20 12:04 Pulse 94 08/28/20 13:58 Resp 16 08/28/20 13:58 BP 119/80 08/28/20 12:04 Pulse Ox 94 L 08/28/20 12:04 Intake & Output 08/27/20 08/28/20 08/28/20 18:59 06:59 18:59 Intake Total 600 0 Output Total 900 300 800 Balance -900 300 -800 Weight 47.627 kg 39.5 kg 39.5 kg Intake: Intake, IV Titration 600 Amount Potassium Chloride 10 meq 300 In Water For Injection 1 100ml.bag @ 100 mls/hr IVPB Q1HR [facility] Rx#: [id number] Sodium Chloride 0.9% 1, 300 000 ml @ 75 mls/hr IV . [id number] [facility] Rx#:[id number] Oral 0 Output: Gastric Drainage 900 300 800 Other: Voiding Method Bedpan # Voids 1 1 - Exam PHYSICAL EXAMINATION: GENERAL: The patient is alert and oriented x3, not in any acute distress. Well developed, well nourished. HEENT: Pupils are round and equally reacting to light. EOMI. NG tubeto R nare No scleral icterus. No conjunctival pallor. CARDIOVASCULAR: S1 and S2 present. No murmurs, rubs, or gallops. PULMONARY: Chest is clear to auscultation, no wheezing or crackles. ABDOMEN: Soft, tenderness in the epigastric area, good bowel sounds MUSCULOSKELETAL: No joint swelling or deformity. EXTREMITIES: No cyanosis, clubbing, or pedal edema. NEUROLOGICAL: Gross neurological examination did not reveal any focal deficits. SKIN: No rashes. - Labs CBC & Chem 7: 08/28/20 07:34 08/28/20 07:52 Labs: Abnormal Lab Results - Last 24 Hours (Table) 08/27/20 08/28/20 08/28/20 Range/Units 19:09 07:34 07:52 RBC 3.44 L (3.80-5.40) m/uL Hgb 9.7 L (11.4-16.0) gm/dL Hct 30.4 L (34.0-46.0) % Potassium 2.6 L* (3.5-5.1) mmol/L Chloride 97 L (98-107) mmol/L Creatinine 0.51 L (0.52-1.04) mg/dL Glucose 43 L* (74-99) mg/dL POC Glucose (mg/dL) (75-99) mg/dL Calcium 8.0 L (8.4-10.2) mg/dL 08/28/20 08/28/20 Range/Units 08:52 09:10 RBC (3.80-5.40) m/uL Hgb (11.4-16.0) gm/dL Hct (34.0-46.0) % Potassium (3.5-5.1) mmol/L Chloride (98-107) mmol/L Creatinine (0.52-1.04) mg/dL Glucose (74-99) mg/dL POC Glucose (mg/dL) 52 L 296 H (75-99) mg/dL Calcium (8.4-10.2) mg/dL Microbiology - Last 24 Hours (Table) 08/27/20 07:52 Urine Culture - Preliminary Urine,Voided Group D Enterococcus Assessment and Plan Assessment: Plan: -Nausea vomiting: Patient has syncopal gastric dilatation possibility of gastric outlet obstruction. NG tube being clamped, if she tolerates can be started on clears per surgery. recent upper GI endoscopy which did not show any significant outlet obstruction patient was diagnosed with gastritis and was discharged on proton pump inhibitor -Fever patient was recently diagnosed with UTI will continue with antibiotics and his Rocephin -Severe hypokalemia secondary to nausea vomiting: potassium repleted -Troponin elevation doesn't have any chest pain doesn't appear to have myocardial infarction only mild troponin elevation repeat 2 more sets of troponins EKG did not show any acute ST-T wave changes. Patient had a pulmonary perfusion text which was negative for pulmonary embolism patient had a recent stress test which was negative. -Coronary artery disease -Hypertension -hyperlipidemia -DVT prophylaxis with Lovenox
[2020-08-28] MEDS: PANTOPRAZOLE 40 MG TABLET PO SCH (20:32)
[2020-08-28] MEDS: METOCLOPRAMIDE 5 MG/ML 2 ML VIAL IVP PRN (20:32)
[2020-08-29] MEDS: PANTOPRAZOLE 40 MG TABLET PO SCH ×2 (08:16→20:50)
[2020-08-29] MEDS: SERTRALINE 50 MG TAB PO SCH (08:16)
[2020-08-29] MEDS: OXYBUTYNIN CHLORIDE 5 MG TAB PO SCH ×3 (08:16→20:57)
[2020-08-29] MEDS: FOLIC ACID 1 MG TAB PO SCH (08:16)
[2020-08-29] MEDS: ASPIRIN 81 MG PO SCH (08:16)
[2020-08-29] MEDS: ERGOCALCIFEROL 1,250 MCG (50,000 IU) CAPSULE PO SCH (08:16)
--- NOTE | 2020-08-29 14:30 | P.PN ---
Subjective Progress Note Date: 08/29/20 75-year-old the female was discharged yesterday from the hospital after she was treated for gastritis or peptic ulcer disease. Patient went home started vomiting comes back again patient appears to have a significant bowel distention stomach distention appears to have bowel obstruction. 2 surgery will be consulted patient will be admitted. Patient had low-grade fevers patient was discharged on antibiotics for urinary tract infection. Patient urine appears to be contaminated urine sample and the patient since patient is on antibiotics and will not be positive patient was comparing of abdominal discomfort. Patient the was recently treated for Covid 19 as well. 08/28/2020 Patient seen on follow-up resting in bed, no abdominal pain today. NG tube had 800 and also overnight, has had no further output from the NG tube today. She has good bowel sounds asking gas at this time. 08/29/2020 Patient seen on reevaluation, NG tube is out, she is on clear liquids tolerating. Reportedly had bowel movement yesterday, is passing gas typing advanced to full liquids today. Blood sugars are labile, expect to stabilize once she is on regular diet. No fever, hemodynamically stable. Urine culture growing 50-100,000 enterococcus ECM, has been receiving Rocephin empirically, WBC 5, afebrile. Review of Systems REVIEW OF SYSTEMS: CONSTITUTIONAL: No fever, no malaise, no fatigue. HEENT: No recent visual problems or hearing problems. Denied any sore throat. CARDIOVASCULAR: No chest pain, orthopnea, PND, no palpitations, no syncope. PULMONARY: No shortness of breath, no cough, no hemoptysis. GASTROINTESTINAL: No diarrhea. No abdominal pain HEMATOLOGICAL: Denies any bleeding or petechiae. Objective - Vital Signs Vital signs: Vital Signs Temp 99.2 F 08/29/20 12:05 Pulse 85 08/29/20 13:17 Resp 16 08/29/20 13:17 BP 131/72 08/29/20 12:05 Pulse Ox 95 08/29/20 12:05 Intake & Output 08/28/20 08/29/20 08/29/20 18:59 06:59 18:59 Intake Total 480 Output Total 800 Balance -320 Weight 39.5 kg 39.5 kg Intake: Oral 480 Output: Gastric Drainage 800 Other: Voiding Method Bedpan Bedpan Bedpan # Voids 1 1 2 - Exam PHYSICAL EXAMINATION: GENERAL: The patient is alert and oriented x3, not in any acute distress. Well developed, well nourished. HEENT: Pupils are round and equally reacting to light. EOMI. No scleral icterus. No conjunctival pallor. CARDIOVASCULAR: S1 and S2 present. No murmurs, rubs, or gallops. PULMONARY: Chest is clear to auscultation, no wheezing or crackles. ABDOMEN: Soft, tenderness in the epigastric area, good bowel sounds MUSCULOSKELETAL: No joint swelling or deformity. EXTREMITIES: No cyanosis, clubbing, or pedal edema. NEUROLOGICAL: Gross neurological examination did not reveal any focal deficits. SKIN: No rashes. - Labs CBC & Chem 7: 08/28/20 07:34 08/28/20 07:52 Labs: Microbiology - Last 24 Hours (Table) 08/27/20 07:52 Urine Culture - Final Urine,Voided Enterococcus faecium VRE Assessment and Plan Assessment: Plan: -Nausea vomiting: Patient has gastric dilatation possibility of gastric outlet obstruction. NG tube is out, tolerating clears, passing gas and reportedly had bowel movement yesterday. Diet being advanced to full liquids She had recent upper GI endoscopy which did not show any significant outlet obs truction patient was diagnosed with gastritis and was discharged on proton pump inhibitor. -Positive urine culture possible colonization: Urine culture growing Enterococcus faecium WBC 5.0, no fever, we'll discontinue Rocephin and recheck urinalysis if negative she will most likely not require antimicrobials. -Severe hypokalemia secondary to nausea vomiting: potassium repleted -Troponin elevation doesn't have any chest pain doesn't appear to have myocardial infarction only mild troponin elevation repeat 2 more sets of troponins EKG did not show any acute ST-T wave changes. Patient had a pulmonary perfusion text which was negative for pulmonary embolism patient had a recent stress test which was negative. -Coronary artery disease -Hypertension -hyperlipidemia -DVT prophylaxis with Lovenox
--- NOTE | 2020-08-29 15:00 | P.PN ---
Subjective Progress Note Date: 08/29/20 CHIEF COMPLAINT: Abdominal distention HISTORY OF PRESENT ILLNESS: The patient is a 75 year old female presents with abdominal distention including gastric outlet obstruction. Nasogastric tube just to decompress the abdomen. Her abdominal pain had improved. She is on clear liquid diet and tolerating soups and beverages. She has had no further abdominal pain following increase of her diet. REVIEW OF ORGAN SYSTEMS: CONSTITUTIONAL: No fevers or chills. RESPIRATORY: Denies any troubles with breathing or dyspnea on exertion. CARDIOVASCULAR: Denies any chest pain, palpitations GASTROINTESTINAL: She is passing flatus. PHYSICAL EXAM: VITALS: Reviewed CONSTITUTIONAL: Well developed and in no acute distress. EYES: Conjuctivae without sclera icterus. Extraocular movements grossly intact. HEAD, EARS, NOSE, THROAT: Moist buccal mucosa. Head is atraumatic, normocephalic. Hears conversational speech. No nasal drainage. NG tube present. RESPIRATORY: Non-labored respirations and equal bilateral excursions. No gross wheezes. CARDIOVASCULAR: Palpable 2+ radial pulses. ABDOMEN: No peritonitis. Soft. Nondistended. MUSCULOSKELETAL: Nail and fingers with good capillary refill. SKIN: Warm and well perfused with good skin turgor. NEUROLOGIC: Cranial nerves II through XII grossly intact. No focal or lateralizing signs. PSYCH: Appropriate affect. Alert and oriented to person, place and time. Displays appropriate insight. CLINCAL LABS: Reviewed ASSESSMENT: 1. Acute gastric distention with history of gastric outlet obstruction PLAN: 1. May advance diet as tolerated. 2. Stable from surgical standpoint for discharge when medically stable. Objective - Vital Signs Vital signs: Vital Signs Temp 99.2 F 08/29/20 12:05 Pulse 85 08/29/20 12:05 Resp 16 08/29/20 12:05 BP 131/72 08/29/20 12:05 Pulse Ox 95 08/29/20 12:05 Intake & Output 08/28/20 08/29/20 08/29/20 18:59 06:59 18:59 Intake Total 480 Output Total 800 Balance -320 Weight 39.5 kg 39.5 kg Intake: Oral 480 Output: Gastric Drainage 800 Other: Voiding Method Bedpan Bedpan Bedpan # Voids 1 1 2 - Labs CBC & Chem 7: 08/28/20 07:34 08/28/20 07:52 Labs: Microbiology - Last 24 Hours (Table) 08/27/20 07:52 Urine Culture - Final Urine,Voided Enterococcus faecium VRE Assessment and Plan (1) Gastric outlet obstruction Current Visit: Yes Status: Acute Code(s): K31.1 - ADULT HYPERTROPHIC PYLORIC STENOSIS SNOMED Code(s): 840797821 (2) Abdominal distension (gaseous) Current Visit: Yes Status: Acute Code(s): R14.0 - ABDOMINAL DISTENSION (GASEOUS) SNOMED Code(s): 922393010 (3) Vomiting Current Visit: Yes Status: Acute Code(s): R11.10 - VOMITING, UNSPECIFIED SNOMED Code(s): 748287194 (4) Abdominal pain Current Visit: No Status: Acute Code(s): R10.9 - UNSPECIFIED ABDOMINAL PAIN SNOMED Code(s): 65825070
[2020-08-29] MEDS: METOCLOPRAMIDE 5 MG/ML 2 ML VIAL IVP PRN ×2 (15:44→20:50)
[2020-08-29 16:22] LABS: Appearance,Urine Clear (Clear); Bilirubin,Urine Negative (Negative); Blood,Urine Negative (Negative); Color,Urine Light Yellow; Glucose,Urine (UA) Negative (Negative); Ketones,Urine 2+ (Negative); Leukocyte Esterase,Urine Negative (Negative); Nitrite,Urine Negative (Negative); Protein,Urine Negative (Negative); Specific Gravity,Urine 1.013 (1.001-1.035); Urobilinogen,Urine <2.0 mg/dL (<2.0)
[2020-08-29] MEDS: SODIUM CHLORIDE 0.9% 1,000 ML IV SCH (19:54)
[2020-08-30] MEDS: METOCLOPRAMIDE 5 MG/ML 2 ML VIAL IVP PRN ×3 (02:10→21:36)
[2020-08-30] MEDS: HYDROcodone/APAP 5-325MG 1 EACH TAB PO PRN ×2 (02:10→19:22)
[2020-08-30] MEDS: SODIUM CHLORIDE 0.9% 1,000 ML IV SCH ×2 (05:31→19:15)
[2020-08-30] MEDS: PANTOPRAZOLE 40 MG TABLET PO SCH ×2 (08:48→22:43)
[2020-08-30] MEDS: SERTRALINE 50 MG TAB PO SCH (08:48)
[2020-08-30] MEDS: ASPIRIN 81 MG PO SCH (08:48)
[2020-08-30] MEDS: FOLIC ACID 1 MG TAB PO SCH (08:48)
[2020-08-30] MEDS: amLODIPine 5 MG TAB PO SCH (10:13)
[2020-08-30] MEDS: ONDANSETRON 4 MG/2 ML VIAL IVP PRN (10:13)
[2020-08-30] MEDS: OXYBUTYNIN CHLORIDE 5 MG TAB PO SCH ×3 (10:13→22:07)
[2020-08-30 10:36] LABS: Basophils # (A) 0.04 X 10*3/uL (0.00-0.10); Basophils % (A) 0.5 %; Eosinophils # (A) 0.03 X 10*3/uL (0.04-0.35); Eosinophils % (A) 0.3 %; HCT 35.9 % (37.2-46.3); HGB 11.3 g/dL (12.0-15.0); Lymphocytes # (A) 1.91 X 10*3/uL (0.90-5.00); Lymphocytes % (A) 21.6 %; MCH 28.5 pg (27.0-32.0); MCHC 31.5 g/dL (32.0-37.0); MCV 90.7 fL (80.0-97.0); Mean Platelet Volume 10.6 fL (9.5-12.2); Monocytes # (A) 0.79 X 10*3/uL (0.20-1.00); Monocytes % (A) 8.9 %; Neutrophils # (A) 5.99 X 10*3/uL (1.80-7.70); Neutrophils % (A) 67.8 %; Platelet Count 466 X 10*3/uL (140-440); RBC 3.96 X 10*6/uL (4.10-5.20); RDW 15.7 % (11.5-14.5); WBC 8.84 X 10*3/uL (4.50-10.00)
[2020-08-30 11:18] LABS: African American GFR (CKD) 116.4 (60.0-200.0); BUN/Creat Ratio 17.5 Ratio (12.00-20.00); Calcium 8.4 mg/dL (8.7-10.3); Non-African American GFR(CKD) 100.5 (60.0-200.0); Potassium 3.5 mmol/L (3.5-5.5)
--- NOTE | 2020-08-30 11:50 | P.PN ---
Subjective Progress Note Date: 08/30/20 CHIEF COMPLAINT: Abdominal distention HISTORY OF PRESENT ILLNESS: Patient presented to the hospital due to abdominal pain and vomiting. She had computed tomography scan of the abdomen and pelvis that showed marked gastric dilation which is fluid filled. This is unchanged from prior study and correlate for gastric obstruction. Fluid distended right hemicolon with a more solid stool distally. Patient did have an NG tube. This was discontinued and she was started on a clear liquid diet. She vomited this morning after eating. Per nursing staff it was maroon in color and had bits of food present. Patient's last bowel movement was 2 days ago. Her last EGD was 08/25/[address] Ma which showed mild gastritis and retained food. Afebrile. WBC 8.8 for hemoglobin 11.3 She has known history of coronary artery disease and cardiac stents Patient seen and examined with Dr. nieves PHYSICAL EXAM: VITAL SIGNS: Reviewed. GENERAL: Well-developed in no acute distress. HEENT: No sclera icterus. Extraocular movements grossly intact. Moist buccal mucosa. Head is atraumatic, normocephalic. ABDOMEN: Soft. Nondistended. NEUROLOGIC: Alert and oriented. Cranial nerves II through XII grossly intact. ASSESSMENT: 1. Abdominal distention with vomiting after eating. Computed tomography scan of the abdomen and pelvis that showed marked gastric dilation which is fluid filled. Is unchanged correlate for gastric obstruction. 2. Gastritis noted on prior EGD. Emesis maroon in color. Hemoglobin stable. PLAN: -Patient is unable to tolerate diet. We will order upper GI with esophagram. -Keep patient nothing by mouth -Hold aspirin due to emesis being maroon in color. Likely due to gastritis. -Further recommendations forthcoming per surgeon after upper GI results Physician Sustainability Project Manager note has been reviewed by physician. Signing provider agrees with the documented findings, assessment, and plan of care. Objective - Vital Signs Vital signs: Vital Signs Temp 98.9 F 08/30/20 06:32 Pulse 106 H 08/30/20 06:59 Resp 16 08/30/20 06:32 BP 167/97 08/30/20 06:55 Pulse Ox 97 08/30/20 06:32 Intake & Output 08/29/20 08/30/20 08/30/20 18:59 06:59 18:59 Intake Total 840 60 Output Total 550 Balance 290 60 Intake: Oral 840 60 Output: Urine 550 Other: Voiding Method Bedpan External Catheter # Voids 2 - Labs CBC & Chem 7: 08/30/20 06:32 08/30/20 06:32 Labs: Abnormal Lab Results - Last 24 Hours (Table) 08/29/20 08/30/20 08/30/20 Range/Units 13:24 06:32 06:32 RBC 3.96 L (4.10-5.20) X 10*6/uL Hgb 11.3 L (12.0-15.0) g/dL Hct 35.9 L (37.2-46.3) % MCHC 31.5 L (32.0-37.0) g/dL RDW 15.7 H (11.5-14.5) % Plt Count 466 H (140-440) X 10*3/uL Immature Gran # 0.08 H (0.00-0.04) X 10*3/uL Eosinophils # 0.03 L (0.04-0.35) X 10*3/uL Carbon Dioxide 36.0 H (21.6-31.8) mmol/L BUN 7.0 L (9.0-27.0) mg/dL Creatinine 0.4 L (0.6-1.5) mg/dL Glucose 175 H (70-110) mg/dL Calcium 8.4 L (8.7-10.3) mg/dL Urine Ketones 2+ H (Negative) Microbiology - Last 24 Hours (Table) 08/27/20 07:52 Urine Culture - Final Urine,Voided Enterococcus faecium VRE
--- NOTE | 2020-08-30 13:38 | P.PN ---
Subjective Progress Note Date: 08/30/20 75-year-old the female was discharged yesterday from the hospital after she was treated for gastritis or peptic ulcer disease. Patient went home started vomiting comes back again patient appears to have a significant bowel distention stomach distention appears to have bowel obstruction. 2 surgery will be consulted patient will be admitted. Patient had low-grade fevers patient was discharged on antibiotics for urinary tract infection. Patient urine appears to be contaminated urine sample and the patient since patient is on antibiotics and will not be positive patient was comparing of abdominal discomfort. Patient the was recently treated for Covid 19 as well. 08/28/2020 Patient seen on follow-up resting in bed, no abdominal pain today. NG tube had 800 and also overnight, has had no further output from the NG tube today. She has good bowel sounds asking gas at this time. 08/29/2020 Patient seen on reevaluation, NG tube is out, she is on clear liquids tolerating. Reportedly had bowel movement yesterday, is passing gas typing advanced to full liquids today. Blood sugars are labile, expect to stabilize once she is on regular diet. No fever, hemodynamically stable. Urine culture g rowing 50-100,000 enterococcus VRE, has been receiving Rocephin empirically, WBC 5, afebrile. 08/30/2020 Patient is seen in follow-up this morning and maintained on clear liquids although having episodes of vomiting and continued abdominal discomfort. Patient will be made nothing by mouth and surgery is following and planning on an upper endoscopy with esophagram to evaluate further. Patient reportedly did have a bowel movement and denies any bowel movements today. Per nursing staff emesis was noted to be maroon in color although patient continues to eat popsicles that she states are red and maroon. Patient denies any bleeding and hemoglobin is stable at 11.3 this morning. White blood count is 8.84, sodium 143 with a potassium of 3.5 and current creatinine is 0.4. Will continue gentle IV hydration. Review of systems: Constitutional: Reports continued fatigue, reports of fever, or chills Cardiovascular: No reports of chest pain or palpitations Respiratory: No reports of shortness of breath or cough GI: Reports of nausea and vomiting today : No reports of dysuria or retention Neurovascular: Reports generalized weakness All medications have been reviewed Objective - Vital Signs Vital signs: Vital Signs Temp 98.9 F 08/30/20 06:32 Pulse 106 H 08/30/20 06:59 Resp 16 08/30/20 06:32 BP 167/97 08/30/20 06:55 Pulse Ox 97 08/30/20 06:32 Intake & Output 08/29/20 08/30/20 08/30/20 18:59 06:59 18:59 Intake Total 840 60 Output Total 550 Balance 290 60 Intake: Oral 840 60 Output: Urine 550 Other: Voiding Method Bedpan External Catheter # Voids 2 # Emeses 2 - Exam GENERAL: The patient is alert and oriented x3, not in any acute distress. Appears lethargic but is arousable. Well developed, well nourished. HEENT: Pupils are round and equally reacting to light. EOMI. No scleral icterus. No conjunctival pallor. CARDIOVASCULAR: S1 and S2 present. No murmurs, rubs, or gallops. PULMONARY: Chest is clear to auscultation, no wheezing or crackles. ABDOMEN: Soft, continued tenderness in the mid epigastric area, good bowel sounds MUSCULOSKELETAL: No joint swelling or deformity. EXTREMITIES: No cyanosis, clubbing, or pedal edema. NEUROLOGICAL: Gross neurological examination did not reveal any focal deficits. SKIN: No rashes. - Labs CBC & Chem 7: 08/30/20 06:32 08/30/20 06:32 Labs: Abnormal Lab Results - Last 24 Hours (Table) 08/29/20 08/30/20 08/30/20 Range/Units 13:24 06:32 06:32 RBC 3.96 L (4.10-5.20) X 10*6/uL Hgb 11.3 L (12.0-15.0) g/dL Hct 35.9 L (37.2-46.3) % MCHC 31.5 L (32.0-37.0) g/dL RDW 15.7 H (11.5-14.5) % Plt Count 466 H (140-440) X 10*3/uL Immature Gran # 0.08 H (0.00-0.04) X 10*3/uL Eosinophils # 0.03 L (0.04-0.35) X 10*3/uL Carbon Dioxide 36.0 H (21.6-31.8) mmol/L BUN 7.0 L (9.0-27.0) mg/dL Creatinine 0.4 L (0.6-1.5) mg/dL Glucose 175 H (70-110) mg/dL Calcium 8.4 L (8.7-10.3) mg/dL Urine Ketones 2+ H (Negative) Microbiology - Last 24 Hours (Table) 08/27/20 07:52 Urine Culture - Final Urine,Voided Enterococcus faecium VRE Assessment and Plan Assessment: -Nausea vomiting: Patient has gastric dilatation possibility of gastric outlet obstruction. NG tube was removed yesterday and patient was tolerating clears and did have a bowel movement yesterday and denies any bowel movements today. Patient had an episode of vomiting and per nursing staff was maroon colored although patient states she has been eating red and maroon colored popsicles throughout the night. Patient will be made nothing by mouth and plans are for esophagram with surgery. GI scoped her last week with EGD showing mild gastritis and was maintained on Protonix and will continue with current medication and monitor closely. -Positive urine culture possible colonization: Urine culture growing Enterococcus faecium. Patient remains afebrile and white blood count is normal limits at 8.84. Repeat urinalysis is negative thus far and will monitor closely. Patient denies any dysuria or urinary frequency. -Severe hypokalemia secondary to nausea vomiting: potassium improved at 3.5 today and will repeat labs as patient is having episodes of emesis today. -Troponin elevation doesn't have any chest pain doesn't appear to have myocardial infarction only mild troponin elevation repeat 2 more sets of troponins EKG did not show any acute ST-T wave changes. Recently underwent stress testing last week which was negative and also had a VQ scan which was also negative for PE -Coronary artery disease -Hypertension -hyperlipidemia -DVT prophylaxis Plan: Patient had episodes of emesis today and will make the patient nothing by mouth and plans are for esophagram and will await report. Surgery following closely. Per nursing staff patient's episode of emesis was maroon colored and patient's lips on exam are stained red and when asking her she states she has been eating red and maroon colored popsicles as she was on clear liquids. Patient does have midepigastric discomfort on palpation. Labs within normal limits and will continue to monitor closely and repeat labs tomorrow.
--- NOTE | 2020-08-30 14:03 | XR ---
EXAMINATION TYPE: XR chest 1V portable DATE OF EXAM: 08/30/2020 COMPARISON: Chest x-ray 08/27/2020 HISTORY: Nasogastric tube placement TECHNIQUE: Single frontal view of the chest is obtained. FINDINGS: Nasogastric tube is folded such that the distal tip is coursing in a cephalad direction in the level of the distal thoracic esophagus. Lucency beneath the right hemidiaphragm may be due to april wel loops. Patchy basilar density is again noted. No other significant interval change. IMPRESSION: NG tube is folded as described.
[2020-08-30] MEDS: POTASSIUM BICARBONATE/CIT AC 20 MEQ TABLET.EFF NG-TUBE SCH ×2 (20:52→21:36)
[2020-08-30] MEDS ORDERED: Magnesium Replacement Protocol 1 EACH MISC MISCELLANE PRN (21:52)
[2020-08-30] MEDS: PANTOPRAZOLE 40 MG/10 ML VIAL IVP SCH (22:44)
[2020-08-30 23:04] LABS: Magnesium 1.7 mg/dL (1.6-2.3); Potassium 3.8 mmol/L (3.5-5.1)
[2020-08-31] MEDS: POTASSIUM CHLORIDE 10 MEQ in WATER FOR INJECTION 1 100ML.BAG IVPB SCH ×2 (00:56→03:12)
[2020-08-31] MEDS: MAGNESIUM SULFATE-D5W PMX 1 GM in DEXTROSE/WATER 1 100ML.BAG IVPB SCH ×2 (02:02→04:16)
[2020-08-31] MEDS: MORPHINE SULFATE 2 MG/ML SYRINGE IVP PRN ×2 (02:03→16:08)
--- NOTE | 2020-08-31 06:51 | FL ---
EXAMINATION TYPE: FL UGI w esophagus DATE OF EXAM: 08/30/2020 COMPARISON: CT abdomen and pelvis 3 days earlier. HISTORY: Repeated vomiting and stomach distention. TECHNIQUE: A single contrast esophagram -UGI study is performed through the nasogastric tube. 100 cc of Isovue-370 was injected. 0 seconds of fluoroscopic time. FINDINGS: [employer] image of the abdomen shows coiled nasogastric tube that should be repositioned. Surg ical change L4-L5 level is present. Calcified right pelvic fibroid is seen. There is prominent left-s ided pelvic phlebolith. Persistent gas distended stomach. Overall nonobstructive bowel gas pattern. Contrast is injected through nasogastric tube. After 2 hours and subsequent 5.5 hours images obtained show contrast remaining in distended stomach occupying a large portion of the upper to mid abdomen. Findings correlate with CT coronal image 27 for reference. IMPRESSION: As above. Findings consistent with gastric outlet obstruction. No obvious obstructing mas s or abnormal twisting/volvulus to stomach seen on recent CT. 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
[2020-08-31] MEDS: OXYBUTYNIN CHLORIDE 5 MG TAB PO SCH ×2 (09:20→16:08)
[2020-08-31] MEDS: PANTOPRAZOLE 40 MG/10 ML VIAL IVP SCH ×2 (09:20→21:27)
[2020-08-31] MEDS: SERTRALINE 50 MG TAB PO SCH (09:20)
[2020-08-31] MEDS: FOLIC ACID 1 MG TAB PO SCH (09:20)
[2020-08-31] MEDS: amLODIPine 5 MG TAB PO SCH (09:20)
[2020-08-31] MEDS: SODIUM CHLORIDE 0.9% 1,000 ML IV SCH (09:21)
[2020-08-31 10:21] LABS: Basophils # (A) 0.04 X 10*3/uL (0.00-0.10); Basophils % (A) 0.4 %; Eosinophils # (A) 0 X 10*3/uL (0.04-0.35); Eosinophils % (A) 0 %; HCT 29.7 % (37.2-46.3); HGB 9.4 g/dL (12.0-15.0); Lymphocytes # (A) 2.18 X 10*3/uL (0.90-5.00); Lymphocytes % (A) 23.6 %; MCH 28.8 pg (27.0-32.0); MCHC 31.6 g/dL (32.0-37.0); MCV 91.1 fL (80.0-97.0); Monocytes # (A) 1.11 X 10*3/uL (0.20-1.00); Neutrophils # (A) 5.81 X 10*3/uL (1.80-7.70); Platelet Count 407 X 10*3/uL (140-440); RBC 3.26 X 10*6/uL (4.10-5.20); RDW 15.9 % (11.5-14.5); WBC 9.23 X 10*3/uL (4.50-10.00)
--- NOTE | 2020-08-31 13:23 | P.PN ---
Subjective Progress Note Date: 08/31/20 CHIEF COMPLAINT: Abdominal distention HISTORY OF PRESENT ILLNESS: Patient presented to the hospital due to abdominal pain and vomiting. Patient vomits after eating. Upper GI shows findings consistent with gastric outlet obstruction. No obvious obstructing mass or abdominal twisting/volvulus to stomach seen on recent CT. There is a low positioning of the ligament of treats consistent with underlying malrotation versus gastric antrum. Patient is scheduled for surgery tomorrow. She currently has NG tube in place. Patient has had 350 mL of brownish darkish output through NG tube. Since NG tube placed she reports improvement in her nausea and abdominal pain. She has had no further maroon emesis. Aspirin was held due to patient having maroon emesis. Afebrile. WBC is 9.23 hemoglobin 9.4 platelets 407 Patient seen and examined with Dr. nieves PHYSICAL EXAM: VITAL SIGNS: Reviewed. GENERAL: Well-developed in no acute distress. HEENT: No sclera icterus. Extraocular movements grossly intact. Moist buccal mucosa. Head is atraumatic, normocephalic. ABDOMEN: Soft. Nondistended. Epigastric tenderness NEUROLOGIC: Alert and oriented. Cranial nerves II through XII grossly intact. ASSESSMENT: 1. Gastric outlet obstruction 2. Abdominal distention with vomiting after eating. 3. Gastritis noted on prior EGD. PLAN: -Patient scheduled for Gastrojejunostomy with Dr. Nieves tomorrow, 09/01/2020 -Continue NG tube for decompression -Keep patient nothing by mouth -We'll get cardiac clearance prior to surgery. Discussed with cardiology, MAGALIS Anguiano. Physician Client Account Assistant note has been reviewed by physician. Signing provider agrees with the documented findings, assessment, and plan of care. Objective - Vital Signs Vital signs: Vital Signs Temp 99.2 F 08/31/20 13:00 Pulse 101 H 08/31/20 13:00 Resp 20 08/31/20 13:00 BP 95/60 08/31/20 13:00 Pulse Ox 96 08/31/20 13:00 Intake & Output 08/30/20 08/31/20 08/31/20 18:59 06:59 18:59 Intake Total 1800 Output Total 1350 1000 Balance -1350 800 Weight 48 kg Intake: Intake, IV Titration 1800 Amount Magnesium Sulfate-D5w Pmx 300 1 gm In Dextrose/Water 1 100ml.bag @ 100 mls/hr IVPB Q1H [facility] Rx#: [id number] Potassium Chloride 10 meq 300 In Water For Injection 1 100ml.bag @ 100 mls/hr IVPB Q1H [facility] Rx#: [id number] Sodium Chloride 0.9% 1, 1200 000 ml @ 75 mls/hr IV . [id number] [facility] Rx#:[id number] Output: Gastric Drainage 1200 1000 Urine 150 Other: Voiding Method Incontinent # Voids 1 2 # Bowel Movements 0 0 # Emeses 2 - Labs CBC & Chem 7: 08/31/20 05:14 08/30/20 22:05 Labs: Abnormal Lab Results - Last 24 Hours (Table) 08/31/20 Range/Units 05:14 RBC 3.26 L (4.10-5.20) X 10*6/uL Hgb 9.4 L (12.0-15.0) g/dL Hct 29.7 L (37.2-46.3) % MCHC 31.6 L (32.0-37.0) g/dL RDW 15.9 H (11.5-14.5) % Immature Gran # 0.09 H (0.00-0.04) X 10*3/uL Monocytes # 1.11 H (0.20-1.00) X 10*3/uL Eosinophils # 0 L (0.04-0.35) X 10*3/uL Microbiology - Last 24 Hours (Table) 08/27/20 07:52 Urine Culture - Final Urine,Voided Enterococcus faecium VRE
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
--- NOTE | 2020-08-31 14:38 | P.PN ---
Subjective Progress Note Date: 08/31/20 75-year-old the female was discharged yesterday from the hospital after she was treated for gastritis or peptic ulcer disease. Patient went home started vomiting comes back again patient appears to have a significant bowel distention stomach distention appears to have bowel obstruction. 2 surgery will be consulted patient will be admitted. Patient had low-grade fevers patient was discharged on antibiotics for urinary tract infection. Patient urine appears to be contaminated urine sample and the patient since patient is on antibiotics and will not be positive patient was comparing of abdominal discomfort. Patient the was recently treated for Covid 19 as well. 08/28/2020 Patient seen on follow-up resting in bed, no abdominal pain today. NG tube had 800 and also overnight, has had no further output from the NG tube today. She has good bowel sounds asking gas at this time. 08/29/2020 Patient seen on reevaluation, NG tube is out, she is on clear liquids tolerating. Reportedly had bowel movement yesterday, is passing gas typing advanced to full liquids today. Blood sugars are labile, expect to stabilize once she is on regular diet. No fever, hemodynamically stable. Urine culture g rowing 50-100,000 enterococcus VRE, has been receiving Rocephin empirically, WBC 5, afebrile. 08/30/2020 Patient is seen in follow-up this morning and maintained on clear liquids although having episodes of vomiting and continued abdominal discomfort. Patient will be made nothing by mouth and surgery is following and planning on an upper endoscopy with esophagram to evaluate further. Patient reportedly did have a bowel movement and denies any bowel movements today. Per nursing staff emesis was noted to be maroon in color although patient continues to eat popsicles that she states are red and maroon. Patient denies any bleeding and hemoglobin is stable at 11.3 this morning. White blood count is 8.84, sodium 143 with a potassium of 3.5 and current creatinine is 0.4. Will continue gentle IV hydration. 08/31/2020 Patient is seen this morning status post esophagram showing findings consistent with gastric outlet obstruction with no obvious obstructing mass or abnormal twisting volvulus to the stomach. NG tube was replaced and patient is nothing by mouth she continued to have nausea and abdominal discomfort and distention. She is scheduled to undergo gastrojejunostomy with surgery tomorrow. Discussed with her float builder also sister and made her aware of surgery. Patient is much more awake and alert and denies any further abdominal discomfort at this time. Patient is tolerating NG tube with continued decompression. Review of systems: Constitutional: No reports of fatigue, fever, or chills Cardiovascular: No reports of chest pain or palpitations Respiratory: No reports of shortness of breath or cough GI: Reports of nausea and vomiting today, tolerating NG tube : No reports of dysuria or retention Neurovascular: Reports generalized weakness All medications have been reviewed Objective - Vital Signs Vital signs: Vital Signs Temp 98.6 F 08/31/20 06:47 Pulse 109 H 08/31/20 06:47 Resp 16 08/31/20 06:47 BP 104/65 08/31/20 06:47 Pulse Ox 92 L 08/31/20 06:47 Intake & Output 08/30/20 08/31/20 08/31/20 18:59 06:59 18:59 Intake Total 1800 Output Total 1350 1000 Balance -1350 800 Intake: Intake, IV Titration 1800 Amount Magnesium Sulfate-D5w Pmx 300 1 gm In Dextrose/Water 1 100ml.bag @ 100 mls/hr IVPB Q1H [facility] Rx#: [id number] Potassium Chloride 10 meq 300 In Water For Injection 1 100ml.bag @ 100 mls/hr IVPB Q1H [facility] Rx#: [id number] Sodium Chloride 0.9% 1, 1200 000 ml @ 75 mls/hr IV . [id number] [facility] Rx#:[id number] Output: Gastric Drainage 1200 1000 Urine 150 Other: Voiding Method Incontinent # Voids 1 # Bowel Movements 0 # Emeses 2 - Exam GENERAL: The patient is alert and oriented x3, not in any acute distress. Well developed, well nourished. HEENT: Pupils are round and equally reacting to light. EOMI. No scleral icterus. No conjunctival pallor. NG tube in the right nares patent and continued to low intermittent suction CARDIOVASCULAR: S1 and S2 present. No murmurs, rubs, or gallops. PULMONARY: Chest is clear to auscultation, no wheezing or crackles. ABDOMEN: Soft, mildly tendern in the mid epigastric area, bowel sounds noted MUSCULOSKELETAL: No joint swelling or deformity. EXTREMITIES: No cyanosis, clubbing, or pedal edema. NEUROLOGICAL: Gross neurological examination did not reveal any focal deficits. SKIN: No rashes. - Labs CBC & Chem 7: 08/31/20 05:14 08/30/20 22:05 Labs: Abnormal Lab Results - Last 24 Hours (Table) 08/30/20 08/30/20 Range/Units 06:32 06:32 RBC 3.96 L (4.10-5.20) X 10*6/uL Hgb 11.3 L (12.0-15.0) g/dL Hct 35.9 L (37.2-46.3) % MCHC 31.5 L (32.0-37.0) g/dL RDW 15.7 H (11.5-14.5) % Plt Count 466 H (140-440) X 10*3/uL Immature Gran # 0.08 H (0.00-0.04) X 10*3/uL Eosinophils # 0.03 L (0.04-0.35) X 10*3/uL Carbon Dioxide 36.0 H (21.6-31.8) mmol/L BUN 7.0 L (9.0-27.0) mg/dL Creatinine 0.4 L (0.6-1.5) mg/dL Glucose 175 H (70-110) mg/dL Calcium 8.4 L (8.7-10.3) mg/dL Microbiology - Last 24 Hours (Table) 08/27/20 07:52 Urine Culture - Final Urine,Voided Enterococcus faecium VRE Assessment and Plan Assessment: -Nausea vomiting: Patient has gastric dilatation possibility of gastric outlet obstruction. NG tube was replaced as the esophagram shows continued gastric out let obstruction and patient is scheduled to undergo gastrojejunostomy with surgery tomorrow -Positive urine culture possible colonization: Urine culture growing Enterococcus faecium. Patient remains afebrile and white blood count is normal limits at 8.84. Repeat urinalysis is negative thus far and will monitor closely. Patient denies any dysuria or urinary frequency. -Severe hypokalemia secondary to nausea vomiting: potassium improved -Troponin elevation doesn't have any chest pain doesn't appear to have myocardial infarction only mild troponin elevation repeat 2 more sets of troponins EKG did not show any acute ST-T wave changes. Recently underwent stress testing last week which was negative and also had a VQ scan which was also negative for PE. Patient was seen and evaluated by cardiology today for surgery and cleared. -Coronary artery disease -Hypertension -hyperlipidemia -DVT prophylaxis -Full code Plan: Patient had esophagram today which shows continued gastric outlet obstruction and patient is scheduled to undergo gastrojejunostomy with surgery tomorrow. NG tube was replaced with continued output noted in the canister and tolerating. Patient is nothing by mouth. Surgery following closely. Labs within normal limits and will continue to monitor closely and repeat labs tomorrow.
[2020-08-31 16:29] LABS: African American GFR (CKD) 108.2 (60.0-200.0); Anion Gap 17.4 mmol/L (4.00-12.00); Calcium 7.8 mg/dL (8.7-10.3); Carbon Dioxide 33.6 mmol/L (21.6-31.8); Magnesium 2.6 mg/dL (1.5-2.4); Non-African American GFR(CKD) 93.4 (60.0-200.0); Potassium 3.7 mmol/L (3.5-5.5)
[2020-08-31] MEDS ORDERED: LIDOCAINE 1% (10MG/ML) FOR IV START INTRADERMA PRN (19:13)
[2020-08-31] MEDS: HYDROcodone/APAP 5-325MG 1 EACH TAB PO PRN (21:26)
[2020-09-01] MEDS: OXYBUTYNIN CHLORIDE 5 MG TAB PO SCH ×4 (00:32→20:54)
[2020-09-01] MEDS: SODIUM CHLORIDE 0.9% 1,000 ML IV SCH ×2 (00:37→18:12)
[2020-09-01] MEDS: LACTATED RINGERS 1,000 ML IV SCH ×2 (00:38→18:23)
[2020-09-01] MEDS: HYDROcodone/APAP 5-325MG 1 EACH TAB PO PRN ×2 (04:27→20:10)
[2020-09-01] MEDS ORDERED: DEXAMETHASONE SOD PHOSPHATE 4 MG/ML 1 ML VIAL IV ONE ×2 (06:00→15:54)
[2020-09-01 06:20] LABS: Basophils % (A) 0 %; Eosinophils # (A) 0.1 k/uL (0-0.7); Eosinophils % (A) 1 %; HCT 24.2 % (34.0-46.0); Hypochromasia Slight; Lymphocytes # (A) 1.5 k/uL (1.0-4.8); Lymphocytes % (A) 26 %; MCH 29.1 pg (25.0-35.0); MCHC 32.9 g/dL (31.0-37.0); MCV 88.7 fL (80.0-100.0); Mean Platelet Volume 8.3; Monocytes # (A) 0.6 k/uL (0-1.0); Monocytes % (A) 10 %; Neutrophils # (A) 3.5 k/uL (1.3-7.7); Neutrophils % (A) 60 %; Platelet Count 354 k/uL (150-450); RBC 2.73 m/uL (3.80-5.40); RDW 15.4 % (11.5-15.5); WBC 5.9 k/uL (3.8-10.6)
[2020-09-01 06:32] LABS: African American GFR (CKD) >90 (>60 ml/min/1.73 sqM); Anion Gap 5 mmol/L; Blood Urea Nitrogen 13 mg/dL (7-17); Calcium 7.8 mg/dL (8.4-10.2); Carbon Dioxide 33 mmol/L (22-30); Chloride 99 mmol/L (98-107); Glucose 66 mg/dL (74-99); Non-African American GFR(CKD) >90 (>60 ml/min/1.73 sqM); Sodium 137 mmol/L (137-145)
[2020-09-01] MEDS ORDERED: HYDROmorphone 0.5 MG/0.5 ML SYRINGE IVP PRN (07:00)
[2020-09-01] MEDS: SERTRALINE 50 MG TAB PO SCH (08:33)
[2020-09-01] MEDS: FOLIC ACID 1 MG TAB PO SCH (08:33)
[2020-09-01] MEDS: amLODIPine 5 MG TAB PO SCH (08:33)
[2020-09-01] MEDS: PANTOPRAZOLE 40 MG/10 ML VIAL IVP SCH ×2 (08:33→20:10)
[2020-09-01] MEDS: POTASSIUM BICARBONATE/CIT AC 20 MEQ TABLET.EFF PO SCH ×2 (08:34→10:06)
[2020-09-01] MEDS ORDERED: IV FLUID CONTINUATION 950 ML IV ONE (15:27)
[2020-09-01] MEDS ORDERED: SUCCINYLCHOLINE CHLORIDE 100 MG/5 ML SYR IV ONE (15:53)
[2020-09-01] MEDS ORDERED: ePHEDrine SULFATE/0.9% NACL/PF 50 MG/5 ML SYRINGE IV ONE (15:53)
[2020-09-01] MEDS ORDERED: ROCURONIUM 10 MG/ML (5 ML VIAL) IV ONE (15:53)
[2020-09-01] MEDS ORDERED: HEPARIN SODIUM,PORCINE 5,000 UNIT/ML 1 ML VIAL ONE (15:53)
[2020-09-01] MEDS ORDERED: fentaNYL (PF) 50 MCG/ML 2 ML AMP ONE (15:53)
[2020-09-01] MEDS ORDERED: GLYCOPYRROLATE 0.2 MG/ML 2 ML VIAL ONE (15:53)
[2020-09-01] MEDS ORDERED: LIDOCAINE 1% INJ 10MG/ML (20 ML MDV) ONE (15:53)
[2020-09-01] MEDS ORDERED: NEOSTIGMINE 1 MG/ML 10 ML VIAL ONE (15:53)
[2020-09-01] MEDS ORDERED: PROPOFOL 10 MG/ML 20 ML VIAL IV ONE (15:53)
[2020-09-01] MEDS ORDERED: ONDANSETRON 4 MG/2 ML VIAL IVP ONE (15:55)
--- NOTE | 2020-09-01 16:45 | P.PN ---
Subjective Progress Note Date: 09/01/20 75-year-old the female was discharged yesterday from the hospital after she was treated for gastritis or peptic ulcer disease. Patient went home started vomiting comes back again patient appears to have a significant bowel distention stomach distention appears to have bowel obstruction. 2 surgery will be consulted patient will be admitted. Patient had low-grade fevers patient was discharged on antibiotics for urinary tract infection. Patient urine appears to be contaminated urine sample and the patient since patient is on antibiotics and will not be positive patient was comparing of abdominal discomfort. Patient the was recently treated for Covid 19 as well. 08/28/2020 Patient seen on follow-up resting in bed, no abdominal pain today. NG tube had 800 and also overnight, has had no further output from the NG tube today. She has good bowel sounds asking gas at this time. 08/29/2020 Patient seen on reevaluation, NG tube is out, she is on clear liquids tolerating. Reportedly had bowel movement yesterday, is passing gas typing advanced to full liquids today. Blood sugars are labile, expect to stabilize once she is on regular diet. No fever, hemodynamically stable. Urine culture g rowing 50-100,000 enterococcus VRE, has been receiving Rocephin empirically, WBC 5, afebrile. 08/30/2020 Patient is seen in follow-up this morning and maintained on clear liquids although having episodes of vomiting and continued abdominal discomfort. Patient will be made nothing by mouth and surgery is following and planning on an upper endoscopy with esophagram to evaluate further. Patient reportedly did have a bowel movement and denies any bowel movements today. Per nursing staff emesis was noted to be maroon in color although patient continues to eat popsicles that she states are red and maroon. Patient denies any bleeding and hemoglobin is stable at 11.3 this morning. White blood count is 8.84, sodium 143 with a potassium of 3.5 and current creatinine is 0.4. Will continue gentle IV hydration. 08/31/2020 Patient is seen this morning status post esophagram showing findings consistent with gastric outlet obstruction with no obvious obstructing mass or abnormal twisting volvulus to the stomach. NG tube was replaced and patient is nothing by mouth she continued to have nausea and abdominal discomfort and distention. She is scheduled to undergo gastrojejunostomy with surgery tomorrow. Discussed with her galvanizing pot runner also sister and made her aware of surgery. Patient is much more awake and alert and denies any further abdominal discomfort at this time. Patient is tolerating NG tube with continued decompression. 09/01/2020 Patient is seen in follow-up awaiting to undergo gastrojejunostomy with surgery today. Patient continues with NG tube and will continue. Patient denies any abdominal discomfort today and has been nothing by mouth. Hemoglobin this morning is 8.0 and potassium was found to be 3.0 with repeat potassium after replacement of 3.5 and current creatinine is 0.43. Will repeat labs and continue to monitor closely. We'll need to transfuse if less than 7. Review of systems: Constitutional: No reports of fatigue, fever, or chills Cardiovascular: No reports of chest pain or palpitations Respiratory: No reports of shortness of breath or cough GI: No reports of nausea or vomiting, tolerating NG tube : No reports of dysuria or retention Neurovascular: Reports generalized weakness All medications have been reviewed Objective - Vital Signs Vital signs: Vital Signs Temp 98.6 F 09/01/20 07:34 Pulse 86 09/01/20 07:34 Resp 16 09/01/20 07:34 BP 121/74 09/01/20 07:34 Pulse Ox 96 09/01/20 07:34 Intake & Output 08/31/20 09/01/20 09/01/20 18:59 06:59 18:59 Output Total 300 Balance -300 Weight 48 kg 45.4 kg Output: Gastric Drainage 300 Other: Voiding Method Incontinent # Voids 2 2 # Bowel Movements 0 - Exam GENERAL: The patient is alert and oriented x3, not in any acute distress. Well developed, well nourished. HEENT: Pupils are round and equally reacting to light. EOMI. No scleral icterus. No conjunctival pallor. NG tube in the right nares patent and continued to low intermittent suction CARDIOVASCULAR: S1 and S2 present. No murmurs, rubs, or gallops. PULMONARY: Chest is clear to auscultation, no wheezing or crackles. ABDOMEN: Soft, mildly tender in the mid epigastric area, bowel sounds noted MUSCULOSKELETAL: No joint swelling or deformity. EXTREMITIES: No cyanosis, clubbing, or pedal edema. NEUROLOGICAL: Gross neurological examination did not reveal any focal deficits. SKIN: No rashes. - Labs CBC & Chem 7: 09/01/20 05:57 09/01/20 11:42 Labs: Abnormal Lab Results - Last 24 Hours (Table) 08/31/20 09/01/20 09/01/20 Range/Units 05:14 05:57 05:57 RBC 2.73 L (3.80-5.40) m/uL Hgb 8.0 L D (11.4-16.0) gm/dL Hct 24.2 L (34.0-46.0) % Potassium 3.0 L (3.5-5.1) mmol/L Chloride 93 L (96-109) mmol/L Carbon Dioxide 33.6 H 33 H (21.6-31.8) mmol/L Anion Gap 17.40 H (4.00-12.00) mmol/L Creatinine 0.5 L 0.43 L (0.6-1.5) mg/dL BUN/Creatinine Ratio 32.00 H (12.00-20.00) Ratio Glucose 122 H 66 L (70-110) mg/dL Calcium 7.8 L 7.8 L (8.7-10.3) mg/dL Magnesium 2.6 H (1.5-2.4) mg/dL Assessment and Plan Assessment: -Nausea vomiting: Patient has gastric dilatation possibility of gastric outlet obstruction. NG tube was replaced as the esophagram shows continued gastric outlet obstruction and patient is scheduled to undergo gastrojejunostomy with surgery as afternoon -Positive urine culture possible colonization: Urine culture growing Entero coccus faecium. Patient remains afebrile and white blood count is normal limits at 8.84. Repeat urinalysis is negative thus far and will monitor closely. Patient denies any dysuria or urinary frequency. -Severe hypokalemia secondary to nausea vomiting: potassium improved and repeat potassium today showed 3.0 and replaced per protocol with repeat prior to surgery 3.5. -Troponin elevation doesn't have any chest pain doesn't appear to have myocardial infarction only mild troponin elevation repeat 2 more sets of troponins EKG did not show any acute ST-T wave changes. Recently underwent stress testing last week which was negative and also had a VQ scan which was also negative for PE. Patient was seen and evaluated by cardiology today for surgery and cleared. -Coronary artery disease -Hypertension -hyperlipidemia -DVT prophylaxis -Full code Plan: Patient scheduled to undergo gastrojejunostomy with surgery this afternoon. Potassium was 3.0 and replaced with repeat 3.5. Will repeat labs as hemoglobin was also noted to be 8.0 with no active bleeding noted. Will need to transfuse if less than 7. NG tube with continued output noted in the canister and tolerating. Patient is nothing by mouth. Surgery following closely. Will await surgical report
--- NOTE | 2020-09-01 17:07 | P.OP ---
Date of Procedure: 09/01/20 Preoperative Diagnosis: Gastric outlet obstruction Postoperative Diagnosis: Gastric outlet obstruction Procedure(s) Performed: Gastrojejunostomy Anesthesia: JUSTIN Surgeon: Cesar Medeiros Estimated Blood Loss (ml): 25 Pathology: none sent Condition: stable Disposition: PACU Description of Procedure: The patient's placed on the operating table in supine position. She received general anesthesia. Her abdomen was prepped and draped in sterile fashion. The abdomen was entered through a midline incision. The Book[place]ter tract with wound. The stomach was thickened and dilated. The duodenum was examined. There is no evidence of any tumor of the duodenum. The duodenum was partially mobilized. No obvious obstruction of the duodenum was seen. At this point a gastrojejunostomy was performed between the mid jejunum in the posterior wall and stomach. Using a MCKAY and TA stapler the anastomosis was performed. There is no evidence of any obstruction anastomosis. The abdomen was irrigated there is no bleeding seen. The fascia was closed with looped #1 PDS suture. The skin was closed sav. Patient top she will was sent to recovery room stable condition.
[2020-09-02] MEDS: SODIUM CHLORIDE 0.9% 1,000 ML IV SCH ×2 (01:09→15:24)
[2020-09-02] MEDS: MORPHINE SULFATE 2 MG/ML SYRINGE IVP PRN ×5 (01:58→20:17)
[2020-09-02 06:06] LABS: Basophils % (A) 0 %; Eosinophils % (A) 0 %; HCT 26.7 % (34.0-46.0); HGB 8.8 gm/dL (11.4-16.0); Hypochromasia Slight; Lymphocytes # (A) 1.1 k/uL (1.0-4.8); Lymphocytes % (A) 14 %; MCH 29.5 pg (25.0-35.0); MCV 89.4 fL (80.0-100.0); Mean Platelet Volume 8.5; Monocytes # (A) 0.6 k/uL (0-1.0); Monocytes % (A) 8 %; Neutrophils # (A) 5.8 k/uL (1.3-7.7); Neutrophils % (A) 76 %; Platelet Count 404 k/uL (150-450); RBC 2.99 m/uL (3.80-5.40); RDW 15.2 % (11.5-15.5); WBC 7.7 k/uL (3.8-10.6)
[2020-09-02 06:19] LABS: African American GFR (CKD) >90 (>60 ml/min/1.73 sqM); Anion Gap 9 mmol/L; Blood Urea Nitrogen 11 mg/dL (7-17); Calcium 8.1 mg/dL (8.4-10.2); Carbon Dioxide 30 mmol/L (22-30); Chloride 99 mmol/L (98-107); Glucose 77 mg/dL (74-99); Non-African American GFR(CKD) >90 (>60 ml/min/1.73 sqM); Potassium 3.9 mmol/L (3.5-5.1); Sodium 138 mmol/L (137-145)
[2020-09-02] MEDS: HYDROcodone/APAP 5-325MG 1 EACH TAB PO PRN ×2 (08:33→22:25)
[2020-09-02] MEDS: SERTRALINE 50 MG TAB PO SCH (08:36)
[2020-09-02] MEDS: amLODIPine 5 MG TAB PO SCH (08:36)
[2020-09-02] MEDS: PANTOPRAZOLE 40 MG/10 ML VIAL IVP SCH ×2 (08:36→20:10)
[2020-09-02] MEDS: FOLIC ACID 1 MG TAB PO SCH (08:36)
[2020-09-02] MEDS: OXYBUTYNIN CHLORIDE 5 MG TAB PO SCH ×3 (08:38→22:26)
--- NOTE | 2020-09-02 12:50 | P.PN ---
Subjective Progress Note Date: 09/02/20 75-year-old the female was discharged yesterday from the hospital after she was treated for gastritis or peptic ulcer disease. Patient went home started vomiting comes back again patient appears to have a significant bowel distention stomach distention appears to have bowel obstruction. 2 surgery will be consulted patient will be admitted. Patient had low-grade fevers patient was discharged on antibiotics for urinary tract infection. Patient urine appears to be contaminated urine sample and the patient since patient is on antibiotics and will not be positive patient was comparing of abdominal discomfort. Patient the was recently treated for Covid 19 as well. 08/28/2020 Patient seen on follow-up resting in bed, no abdominal pain today. NG tube had 800 and also overnight, has had no further output from the NG tube today. She has good bowel sounds asking gas at this time. 08/29/2020 Patient seen on reevaluation, NG tube is out, she is on clear liquids tolerating. Reportedly had bowel movement yesterday, is passing gas typing advanced to full liquids today. Blood sugars are labile, expect to stabilize once she is on regular diet. No fever, hemodynamically stable. Urine culture g rowing 50-100,000 enterococcus VRE, has been receiving Rocephin empirically, WBC 5, afebrile. 08/30/2020 Patient is seen in follow-up this morning and maintained on clear liquids although having episodes of vomiting and continued abdominal discomfort. Patient will be made nothing by mouth and surgery is following and planning on an upper endoscopy with esophagram to evaluate further. Patient reportedly did have a bowel movement and denies any bowel movements today. Per nursing staff emesis was noted to be maroon in color although patient continues to eat popsicles that she states are red and maroon. Patient denies any bleeding and hemoglobin is stable at 11.3 this morning. White blood count is 8.84, sodium 143 with a potassium of 3.5 and current creatinine is 0.4. Will continue gentle IV hydration. 08/31/2020 Patient is seen this morning status post esophagram showing findings consistent with gastric outlet obstruction with no obvious obstructing mass or abnormal twisting volvulus to the stomach. NG tube was replaced and patient is nothing by mouth she continued to have nausea and abdominal discomfort and distention. She is scheduled to undergo gastrojejunostomy with surgery tomorrow. Discussed with her grinder outside diameter also sister and made her aware of surgery. Patient is much more awake and alert and denies any further abdominal discomfort at this time. Patient is tolerating NG tube with continued decompression. 09/01/2020 Patient is seen in follow-up awaiting to undergo gastrojejunostomy with surgery today. Patient continues with NG tube and will continue. Patient denies any abdominal discomfort today and has been nothing by mouth. Hemoglobin this morning is 8.0 and potassium was found to be 3.0 with repeat potassium after replacement of 3.5 and current creatinine is 0.43. Will repeat labs and continue to monitor closely. We'll need to transfuse if less than 7. 09/02/2020 Patient is seen and evaluated in follow-up this morning underwent gastrojeju nostomy with surgery and tolerated the procedure well. Patient continues with NG tube in the right nare with continued output. Patient continues with abdominal discomfort with some shadowing noted in the midline abdominal incision. Surgery following closely. PT/OT following as patient is extremely weak and will need rehab upon discharge as her caregiver is her sister who is unable to help her at this time as she is going for surgery herself and will have lifting restrictions and patient is requiring assistance with all ADLs and gait. Social work following. Patient denies any nausea and is continued as nothing by mouth at this time. Hemoglobin is stable at 8.8 sodium is 138 with a potassium of 3.9 and current creatinine is 0.48. Review of systems: Constitutional: No reports of fatigue, fever, or chills Cardiovascular: No reports of chest pain or palpitations Respiratory: No reports of shortness of breath or cough GI: No reports of nausea or vomiting, tolerating NG tube, reports abdominal discomfort at the surgical site with tenderness on palpation : No reports of dysuria or retention Neurovascular: Reports generalized weakness All medications have been reviewed Objective - Vital Signs Vital signs: Vital Signs Temp 97.9 F 09/02/20 07:31 Pulse 90 09/02/20 07:31 Resp 16 09/02/20 07:31 BP 144/86 09/02/20 07:31 Pulse Ox 98 09/02/20 07:31 Intake & Output 09/01/20 09/02/20 09/02/20 18:59 06:59 18:59 Intake Total 610 Output Total 50 Balance 560 Intake: IV 500 Intake, IV Titration 110 Amount Lactated Ringers 1,000 ml 60 @ 20 mls/hr IV .Q24H [facility] Rx#:[id number] 2 gm In 50 Sodium Chloride 0.9% 50 ml @ 100 mls/hr IVPB Q24HR [facility] Rx#:[id number] Oral 0 Output: Estimated Blood Loss 50 Other: Voiding Method Diaper Diaper Incontinent Incontinent # Voids 3 1 - Exam GENERAL: The patient is alert and oriented x3, not in any acute distress. Well developed, well nourished. HEENT: Pupils are round and equally reacting to light. EOMI. No scleral icterus. No conjunctival pallor. NG tube in the right nares patent and continued to low intermittent suction CARDIOVASCULAR: S1 and S2 present. No murmurs, rubs, or gallops. PULMONARY: Chest is clear to auscultation, no wheezing or crackles. ABDOMEN: Soft, mildly tender in the midline surgical site, sluggish bowel sounds noted MUSCULOSKELETAL: No joint swelling or deformity. EXTREMITIES: No cyanosis, clubbing, or pedal edema. NEUROLOGICAL: Gross neurological examination did not reveal any focal deficits. Diffusely weak SKIN: No rashes. - Labs CBC & Chem 7: 09/02/20 04:46 09/02/20 04:46 Labs: Abnormal Lab Results - Last 24 Hours (Table) 09/02/20 09/02/20 Range/Units 04:46 04:46 RBC 2.99 L (3.80-5.40) m/uL Hgb 8.8 L (11.4-16.0) gm/dL Hct 26.7 L (34.0-46.0) % Creatinine 0.48 L (0.52-1.04) mg/dL Calcium 8.1 L (8.4-10.2) mg/dL Assessment and Plan Assessment: -Nausea vomiting: Patient has gastric dilatation possibility of gastric outlet obstruction. Patient is status post gastrojejunostomy with surgery yesterday and his continued as nothing by mouth with NG tube to low intermittent suction -Positive urine culture possible colonization: Urine culture growing Enterococcus faecium VRE. Patient remains afebrile and white blood count is normal limits at 7.7. Patient denies any dysuria or urinary frequency. -Severe hypokalemia secondary to nausea vomiting: Potassium replaced and improve d and is currently 3.9 -Troponin elevation doesn't have any chest pain doesn't appear to have myocar dial infarction only mild troponin elevation repeat 2 more sets of troponins EKG did not show any acute ST-T wave changes. Recently underwent stress testing last week which was negative and also had a VQ scan which was also negative for PE. Patient was seen and evaluated by cardiology today for surgery and cleared. -Coronary artery disease -Hypertension -hyperlipidemia -DVT prophylaxis -Full code Plan: Patient underwent gastrojejunostomy with surgery yesterday and tolerated. Potassium improved at 3.9 today. Hemoglobin is stable at 8.8 with no active bleeding noted. Sluggish bowel sounds noted with no reports of bowel movements as of yet. Will need to transfuse if less than 7. Continue with NG tube. Patient is nothing by mouth. Surgery following closely. Will repeat a.m. labs and continue to monitor closely. PT/OT to evaluate the patient as she is persistently weak requiring assistance and will not have any help at home as her caregiver is going for surgery as well. Social work consulted.
--- NOTE | 2020-09-02 13:00 | P.PN ---
Progress Note - Text Progress Note Date: 09/02/20 Patient is resting comfortably in her bed. She has some complaints of incisional pain. She is postoperative day 1 from gastrojejunostomy. On exam vital signs are stable her incisions clean dry intact. Abdomen is soft. Status post gastrojejunostomy. Patient will have diet started once her GI function has returned.
[2020-09-02] MEDS: LACTATED RINGERS 1,000 ML IV SCH (20:11)
[2020-09-03] MEDS: MORPHINE SULFATE 2 MG/ML SYRINGE IVP PRN ×4 (00:38→19:47)
[2020-09-03] MEDS: SODIUM CHLORIDE 0.9% 1,000 ML IV SCH ×2 (04:25→17:54)
[2020-09-03 05:52] LABS: Ionized Calcium 4.9 mg/dL (4.5-5.3)
[2020-09-03 06:01] LABS: African American GFR (CKD) >90 (>60 ml/min/1.73 sqM); Albumin 2.2 g/dL (3.5-5.0); Anion Gap 10 mmol/L; Blood Urea Nitrogen 11 mg/dL (7-17); Carbon Dioxide 27 mmol/L (22-30); Chloride 100 mmol/L (98-107); Glucose 60 mg/dL (74-99); Magnesium 1.7 mg/dL (1.6-2.3); Non-African American GFR(CKD) >90 (>60 ml/min/1.73 sqM); Phosphorus 2.7 mg/dL (2.5-4.5); Potassium 3.2 mmol/L (3.5-5.1); Sodium 137 mmol/L (137-145)
[2020-09-03] MEDS: PANTOPRAZOLE 40 MG/10 ML VIAL IVP SCH ×2 (09:10→19:47)
[2020-09-03] MEDS: amLODIPine 5 MG TAB PO SCH (09:10)
[2020-09-03] MEDS: SERTRALINE 50 MG TAB PO SCH (09:10)
[2020-09-03] MEDS: OXYBUTYNIN CHLORIDE 5 MG TAB PO SCH ×3 (09:10→22:52)
[2020-09-03] MEDS: FOLIC ACID 1 MG TAB PO SCH (09:11)
--- NOTE | 2020-09-03 09:51 | P.PN ---
Progress Note - Text Progress Note Date: 09/03/20 Patient feels better. She is not having significant bowel function. On exam vital signs are stable. Abdomen soft. Incision is clean dry and intact. Status post loop gastrojejunostomy for gastric outlet obstruction. Patient will resume start clear liquid diet tomorrow.
[2020-09-03] MEDS ORDERED: LIDOCAINE 1% INJ 10MG/ML (20 ML MDV) SQ ONE (10:29)
[2020-09-03] MEDS: HYDROcodone/APAP 5-325MG 1 EACH TAB PO PRN (12:37)
[2020-09-03] MEDS ORDERED: MVI, ADULT NO.4 WITH VIT K 10 ML, TRACE (CONC-1ML/DOSE) 1 ML in AMINO ACID 5%-D15W+LYTE... IV ONE ×3 (13:00)
[2020-09-03] MEDS: MAGNESIUM SULFATE-D5W PMX 1 GM in DEXTROSE/WATER 1 100ML.BAG IVPB SCH ×2 (13:28→14:22)
--- NOTE | 2020-09-03 13:32 | IR ---
EXAMINATION TYPE: IR cvc insert >=5 years DATE OF EXAM: 09/03/2020 COMPARISON: NONE CLINICAL HISTORY: obstruction Needs long-term intravenous access for therapy and total parenteral nut rition. PROCEDURE: Hand hygiene obtained with soap and water and alcohol-based hand rub. After informed consent, the skin overlying the left basilic vein was localized with ultrasound and no shannon to be compressible and patent. An ultrasound image was obtained and submitted on the patient's c kent. The overlying skin was prepped and draped and Lidocaine was used for local anesthesia. A skin faith was made with a scalpel. Access was gained to the vein under ultrasound guidance with a 21 gau ge needle and a 0.018 inch wire was advanced. Access site was dilated with Peel-Away sheath and cath eter tailored to the appropriate length and advanced such that the distal tip is at the cavoatrial ju nction. Spot image was obtained verifying placement. Catheter was fixed to the skin and a sterile d ressing was placed following hemostasis. Catheter was aspirated and flushed with saline. Patient wa s discharged in stable condition without complication. Maximal barrier technique is utilized. Ultras ound image is documented on the chart. Ultrasound used with sterile technique. Fluoro time and fluoroscopic images submitted to document procedure: 35 intraoperative C-arm images, 0.2 minutes fluoroscopy time IMPRESSION: STATUS POST ULTRASOUND AND FLUOROSCOPIC GUIDED PICC LINE PLACEMENT, READY FOR USE. THIS PROCEDURE WAS PERFORMED BY THE UNDERSIGNED.
[2020-09-03] MEDS: POTASSIUM CHLORIDE 20 MEQ in WATER FOR INJECTION 1 100ML.BAG IVPB SCH ×2 (13:33→15:46)
--- NOTE | 2020-09-03 16:01 | P.PN ---
Subjective Progress Note Date: 09/03/20 75-year-old the female was discharged yesterday from the hospital after she was treated for gastritis or peptic ulcer disease. Patient went home started vomiting comes back again patient appears to have a significant bowel distention stomach distention appears to have bowel obstruction. 2 surgery will be consulted patient will be admitted. Patient had low-grade fevers patient was discharged on antibiotics for urinary tract infection. Patient urine appears to be contaminated urine sample and the patient since patient is on antibiotics and will not be positive patient was comparing of abdominal discomfort. Patient the was recently treated for Covid 19 as well. 08/28/2020 Patient seen on follow-up resting in bed, no abdominal pain today. NG tube had 800 and also overnight, has had no further output from the NG tube today. She has good bowel sounds asking gas at this time. 08/29/2020 Patient seen on reevaluation, NG tube is out, she is on clear liquids tolerating. Reportedly had bowel movement yesterday, is passing gas typing advanced to full liquids today. Blood sugars are labile, expect to stabilize once she is on regular diet. No fever, hemodynamically stable. Urine culture g rowing 50-100,000 enterococcus VRE, has been receiving Rocephin empirically, WBC 5, afebrile. 08/30/2020 Patient is seen in follow-up this morning and maintained on clear liquids although having episodes of vomiting and continued abdominal discomfort. Patient will be made nothing by mouth and surgery is following and planning on an upper endoscopy with esophagram to evaluate further. Patient reportedly did have a bowel movement and denies any bowel movements today. Per nursing staff emesis was noted to be maroon in color although patient continues to eat popsicles that she states are red and maroon. Patient denies any bleeding and hemoglobin is stable at 11.3 this morning. White blood count is 8.84, sodium 143 with a potassium of 3.5 and current creatinine is 0.4. Will continue gentle IV hydration. 08/31/2020 Patient is seen this morning status post esophagram showing findings consistent with gastric outlet obstruction with no obvious obstructing mass or abnormal twisting volvulus to the stomach. NG tube was replaced and patient is nothing by mouth she continued to have nausea and abdominal discomfort and distention. She is scheduled to undergo gastrojejunostomy with surgery tomorrow. Discussed with her soa integration developer also sister and made her aware of surgery. Patient is much more awake and alert and denies any further abdominal discomfort at this time. Patient is tolerating NG tube with continued decompression. 09/01/2020 Patient is seen in follow-up awaiting to undergo gastrojejunostomy with surgery today. Patient continues with NG tube and will continue. Patient denies any abdominal discomfort today and has been nothing by mouth. Hemoglobin this morning is 8.0 and potassium was found to be 3.0 with repeat potassium after replacement of 3.5 and current creatinine is 0.43. Will repeat labs and continue to monitor closely. We'll need to transfuse if less than 7. 09/02/2020 Patient is seen and evaluated in follow-up this morning underwent gastrojeju nostomy with surgery and tolerated the procedure well. Patient continues with NG tube in the right nare with continued output. Patient continues with abdominal discomfort with some shadowing noted in the midline abdominal incision. Surgery following closely. PT/OT following as patient is extremely weak and will need rehab upon discharge as her caregiver is her sister who is unable to help her at this time as she is going for surgery herself and will have lifting restrictions and patient is requiring assistance with all ADLs and gait. Social work following. Patient denies any nausea and is continued as nothing by mouth at this time. Hemoglobin is stable at 8.8 sodium is 138 with a potassium of 3.9 and current creatinine is 0.48. 09/03/2020 Patient is seen and evaluated this morning and is scheduled to receive a PICC line and will be started on TPN as patient continues to be nothing by mouth and NG tube continues to have output noted. Patient recently underwent gastrojejunostomy with Dr. Medeiros and is being closely monitored. Sodium today is 137 and potassium is 3.2 and will replace per protocol and repeat a.m. labs. Creatinine is 0.44. Blood sugars on the lower side and will continue to monitor closely. Magnesium is also 1.7 and will monitor closely. Patient is reportedly passing gas although no reports of bowel movements as of yet. Patient will continue to be nothing by mouth with the possibility of attempting clear liquids and enteral nutrition. Surgery is following closely. Review of systems: Constitutional: No reports of fatigue, fever, or chills Cardiovascular: No reports of chest pain or palpitations Respiratory: No reports of shortness of breath or cough GI: No reports of nausea or vomiting, tolerating NG tube, reports abdominal discomfort at the surgical site with tenderness on palpation : No reports of dysuria or retention Neurovascular: Reports generalized weakness All medications have been reviewed Active Medications Hydrocodone Bitart/Acetaminophen (Hydrocodone/Apap 5-325mg 1 Each Tab) 1 each PO Q6HR PRN PRN Reason: Pain Last Admin: 09/03/20 12:37 Dose: 1 each Documented by: Amlodipine Besylate (Amlodipine 5 Mg Tab) 5 mg PO DAILY [facility] Last Admin: 09/03/20 09:10 Dose: 5 mg Documented by: Ergocalciferol (Ergocalciferol 1,250 Mcg (50,000 Iu) Capsule) 1,250 mcg PO GARZA [facility] Last Admin: 08/29/20 08:16 Dose: 1,250 mcg Documented by: Fluticasone Propionate (Fluticasone 50mcg/[place] Nasal 16gm) 1 spray EA NOSTRIL BID PRN PRN Reason: Allergy Symptoms Folic Acid (Folic Acid 1 Mg Tab) 1 mg PO DAILY [facility] Last Admin: 09/03/20 09:11 Dose: 1 mg Documented by: Sodium Chloride (Saline 0.9%) 1,000 mls @ 75 mls/hr IV .[id number] [facility] Last Admin: 09/03/20 04:25 Dose: Not Given Documented by: Ceftriaxone Sodium 2 gm/ (Sodium Chloride) 50 mls @ 100 mls/hr IVPB Q24HR [facility] Last Admin: 09/03/20 09:11 Dose: 100 mls/hr Documented by: Lactated Ringer's (Lactated Ringers) 1,000 mls @ 20 mls/hr IV .Q24H [facility] Last Admin: 09/02/20 20:11 Dose: Not Given Documented by: Parenteral Vitamin Supplement 10 ml/ Zinc/Copper/Manganese/Selenium 1 ml/ Amino Ac/Electrol/Dextrose/Calcium 1,011 mls @ 30 mls/hr IV .Q24H ONE Stop: 09/04/20 12:59 Last Admin: 09/03/20 13:03 Dose: 30 mls/hr Documented by: Parenteral Vitamin Supplement 10 ml/ Zinc/Copper/Manganese/Selenium 1 ml/ Amino Ac/Electrol/Dextrose/Calcium 1,011 mls @ 52 mls/hr IV .[id number] [facility] Fat Emulsion Intravenous 250 (ml/ IV Solution) 250 mls @ 21 mls/hr IV DAILY@1600 [facility] Potassium Chloride 20 meq/ IV (Solution) 100 mls @ 50 mls/hr IVPB Q2H [facility] Stop: 09/03/20 16:14 Last Admin: 09/03/20 15:46 Dose: 50 mls/hr Documented by: Lidocaine HCl (Lidocaine 1% (10mg/Ml) For Iv Start) 0.1 ml INTRADERMA PER PROTOCOL PRN PRN Reason: IV Start Metoclopramide HCl (Metoclopramide 5 Mg/Ml 2 Ml Vial) 5 mg IVP Q6HR PRN PRN Reason: Nausea And Vomiting Last Admin: 08/30/20 21:36 Dose: 5 mg Documented by: Miscellaneous Information (Potassium Replacement Protocol 1 Each Misc) 1 each MISCELLANE DAILY PRN; Protocol PRN Reason: Per Protocol Miscellaneous Information (Magnesium Replacement Protocol 1 Each Misc) 1 each MISCELLANE DAILY PRN; Protocol PRN Reason: Per Protocol Morphine Sulfate (Morphine Sulfate 2 Mg/Ml Syringe) 2 mg IVP Q4H PRN PRN Reason: Pain/Discomfort Last Admin: 09/03/20 09:55 Dose: 2 mg Documented by: Naloxone HCl (Naloxone 0.4 Mg/Ml 1 Ml Vial) 0.2 mg IV Q2M PRN PRN Reason: Opioid Reversal Ondansetron HCl (Ondansetron 4 Mg/2 Ml Vial) 4 mg IVP Q6HR PRN PRN Reason: Nausea And Vomiting Last Admin: 08/30/20 10:13 Dose: 4 mg Documented by: Oxybutynin Chloride (Oxybutynin Chloride 5 Mg Tab) 5 mg PO TID [facility] Last Admin: 09/03/20 09:10 Dose: 5 mg Documented by: Pantoprazole Sodium (Pantoprazole 40 Mg/10 Ml Vial) 40 mg IVP BID [facility] Last Admin: 09/03/20 09:10 Dose: 40 mg Documented by: Sertraline HCl (Sertraline 50 Mg Tab) 50 mg PO DAILY [facility] Last Admin: 09/03/20 09:10 Dose: 50 mg Documented by: Sodium Chloride (Sodium Chloride 0.9% Flush 10 Ml Syringe) 10 ml IV Q4HR PRN PRN Reason: PICC Line Sodium Chloride (Sodium Chloride 0.9% Flush 10 Ml Syringe) 10 ml IV WEEKLY RAJENDRA Sodium Chloride (Sodium Chloride 0.9% Flush 10 Ml Syringe) 20 ml IV Q4HR PRN PRN Reason: PICC Line Objective - Vital Signs Vital signs: Vital Signs Temp 98.2 F 09/03/20 12:00 Pulse 77 09/03/20 08:00 Resp 17 09/03/20 12:00 BP 123/69 09/03/20 12:00 Pulse Ox 98 09/03/20 12:00 Intake & Output 09/02/20 09/03/20 09/03/20 18:59 06:59 18:59 Output Total 400 Balance -400 Weight 45.4 kg 48.9 kg Output: Gastric Drainage 400 Other: Voiding Method Diaper Diaper Diaper Incontinent Incontinent Incontinent # Voids 2 2 - Exam GENERAL: The patient is alert and oriented x3, not in any acute distress. Well developed, well nourished. Temp is 97.4F, pulse is 77, respirations are 17, blood pressure is 127/74, oxygen saturation is 98% on 2 L via nasal cannula. She does wear 2 L in the outpatient setting. HEENT: Pupils are round and equally reacting to light. EOMI. No scleral icterus. No conjunctival pallor. NG tube in the right nares patent and continued to low intermittent suction CARDIOVASCULAR: S1 and S2 muffled PULMONARY: Manage breath sounds with no wheezing or rhonchi noted ABDOMEN: Soft, mildly tender in the midline surgical site with sav intact, sluggish bowel sounds noted MUSCULOSKELETAL: No joint swelling or deformity. EXTREMITIES: No cyanosis, clubbing, or pedal edema. NEUROLOGICAL: Gross neurological examination did not reveal any focal deficits. Diffusely weak SKIN: No rashes. - Labs CBC & Chem 7: 09/02/20 04:46 09/03/20 05:33 Labs: Abnormal Lab Results - Last 24 Hours (Table) 09/03/20 Range/Units 05:33 Potassium 3.2 L (3.5-5.1) mmol/L Creatinine 0.44 L (0.52-1.04) mg/dL Glucose 60 L (74-99) mg/dL Calcium 8.0 L (8.4-10.2) mg/dL Albumin 2.2 L (3.5-5.0) g/dL Assessment and Plan Assessment: -Nausea vomiting secondary to gastric dilatation and gastric outlet obstruction as noted on CT -Status post gastrojejunostomy -Positive urine culture possible colonization: Urine culture growing Enterococcus faecium VRE -Severe hypokalemia secondary to nausea vomiting -Troponin elevation doesn't have any chest pain doesn't appear to have myocardial infarction only mild troponin elevation repeat 2 more sets of troponins EKG did not show any acute ST-T wave changes. Recently underwent stress testing last week which was negative and also had a VQ scan which was also negative for PE. Patient was seen and evaluated by cardiology -Coronary artery disease -Hypertension -hyperlipidemia -DVT prophylaxis -Full code Plan: Patient underwent gastrojejunostomy with surgery yesterday and tolerated. Patient continues with hypokalemia and will replace per protocol and repeat labs and monitor closely. Recommend repeating magnesium as well. Patient is rajendra eduled to receive a PICC line for enteral nutrition and will continue with nothing by mouth for now as patient continues to have output noted in the NG. Patient is reporting to passing gas although has not had a bowel movement yet. Surgery is following closely. Possible advancing to clear liquids in the next day or so. Will repeat a.m. labs and continue to monitor closely. Further recommendations to follow based on the clinical course the patient. Due to multiple complex medical issues, prognosis is guarded. PT/OT to continue to follow as patient continues to be weak and recommending subacute rehab and social work is following as well.
[2020-09-03] MEDS: FAT EMULSION 20% 250 ML in EMPTY BAG 1 BAG IV SCH (17:49)
[2020-09-03] MEDS: LACTATED RINGERS 1,000 ML IV SCH (19:46)
[2020-09-03 20:13] LABS: Glucose,Whole Blood 121 mg/dL (75-99)
[2020-09-04 01:26] LABS: Glucose,Whole Blood 124 mg/dL (75-99)
[2020-09-04 07:01] LABS: Glucose,Whole Blood 123 mg/dL (75-99)
[2020-09-04 07:22] LABS: African American GFR (CKD) >90 (>60 ml/min/1.73 sqM); Anion Gap 4 mmol/L; Blood Urea Nitrogen 8 mg/dL (7-17); Calcium 7.4 mg/dL (8.4-10.2); Carbon Dioxide 29 mmol/L (22-30); Chloride 101 mmol/L (98-107); Glucose 119 mg/dL (74-99); Magnesium 1.8 mg/dL (1.6-2.3); Non-African American GFR(CKD) >90 (>60 ml/min/1.73 sqM); Phosphorus 1.9 mg/dL (2.5-4.5); Potassium 2.9 mmol/L (3.5-5.1); Sodium 134 mmol/L (137-145)
[2020-09-04] MEDS: SERTRALINE 50 MG TAB PO SCH (08:50)
[2020-09-04] MEDS: FOLIC ACID 1 MG TAB PO SCH (08:50)
[2020-09-04] MEDS: POTASSIUM PHOSPHATE 10 MMOL in SODIUM CHLORIDE 0.9% 100 ML IV SCH ×2 (08:50→11:03)
[2020-09-04] MEDS: OXYBUTYNIN CHLORIDE 5 MG TAB PO SCH ×3 (08:50→22:26)
[2020-09-04] MEDS: PANTOPRAZOLE 40 MG/10 ML VIAL IVP SCH ×2 (08:50→22:26)
[2020-09-04] MEDS: amLODIPine 5 MG TAB PO SCH (08:50)
[2020-09-04] MEDS: SODIUM CHLORIDE 0.9% 1,000 ML IV SCH ×2 (08:51→22:28)
--- NOTE | 2020-09-04 11:25 | P.PN ---
Subjective Progress Note Date: 09/04/20 Principal diagnosis: Gastric outlet obstruction Patient doing fairly well today. She is passing flatus. No bowel movement. Nasogastric tube bilious. T-max 99.6. Objective - Vital Signs Vital signs: Vital Signs Temp 99.6 F 09/04/20 07:00 Pulse 74 09/04/20 07:00 Resp 20 09/04/20 07:00 BP 125/67 09/04/20 07:00 Pulse Ox 90 L 09/04/20 07:00 Intake & Output 09/03/20 09/04/20 09/04/20 18:59 06:59 18:59 Weight 48.9 kg 58.8 kg Other: Voiding Method Diaper Diaper Incontinent Incontinent # Voids 1 1 - Exam Abdomen soft, nondistended, incision clean and dry, mild tenderness - Labs CBC & Chem 7: 09/02/20 04:46 09/04/20 06:09 Labs: Abnormal Lab Results - Last 24 Hours (Table) 09/03/20 09/04/20 09/04/20 Range/Units 20:12 01:03 06:09 Sodium 134 L (137-145) mmol/L Potassium 2.9 L (3.5-5.1) mmol/L Creatinine 0.30 L (0.52-1.04) mg/dL Glucose 119 H (74-99) mg/dL POC Glucose (mg/dL) 121 H 124 H (75-99) mg/dL Calcium 7.4 L (8.4-10.2) mg/dL Phosphorus 1.9 L (2.5-4.5) mg/dL 09/04/20 Range/Units 06:56 Sodium (137-145) mmol/L Potassium (3.5-5.1) mmol/L Creatinine (0.52-1.04) mg/dL Glucose (74-99) mg/dL POC Glucose (mg/dL) 123 H (75-99) mg/dL Calcium (8.4-10.2) mg/dL Phosphorus (2.5-4.5) mg/dL Assessment and Plan (1) Gastric outlet obstruction Narrative/Plan: Overall patient is doing fairly well. Discussed removing nasogastric tube with patient. We'll keep one more day. If doing well tomorrow we'll remove and begin sips of liquids. Crease activity. Current Visit: Yes Status: Acute Code(s): K31.1 - ADULT HYPERTROPHIC PYLORIC STENOSIS SNOMED Code(s): 338233832
[2020-09-04] MEDS: POTASSIUM CHLORIDE ER 20 MEQ TAB.ER PO SCH ×3 (12:18→16:55)
[2020-09-04 12:49] LABS: Glucose,Whole Blood 142 mg/dL (75-99)
[2020-09-04] MEDS ORDERED: POTASSIUM CHLORIDE 20 MEQ in WATER FOR INJECTION 1 100ML.BAG IVPB ONE (13:00)
[2020-09-04] MEDS ORDERED: MVI, ADULT NO.4 WITH VIT K 10 ML, TRACE (CONC-1ML/DOSE) 1 ML in AMINO ACID 5%-D15W+LYTE... IV SCH ×3 (13:00)
[2020-09-04] MEDS ORDERED: MVI, ADULT NO.4 WITH VIT K 10 ML, TRACE (CONC-1ML/DOSE) 1 ML, SODIUM CHLORIDE 4MEQ/ML V... IV SCH ×4 (13:00)
[2020-09-04] MEDS: MVI, ADULT NO.4 WITH VIT K 10 ML, TRACE (CONC-1ML/DOSE) 1 ML, SODIUM CHLORIDE 4MEQ/ML V... IV SCH ×5 (14:00)
[2020-09-04] MEDS ORDERED: POTASSIUM CHLORIDE 10 MEQ in WATER FOR INJECTION 1 100ML.BAG IVPB ONE (15:00)
[2020-09-04] MEDS: FAT EMULSION 20% 250 ML in EMPTY BAG 1 BAG IV SCH (16:55)
[2020-09-04 18:42] LABS: Glucose,Whole Blood 149 mg/dL (75-99)
[2020-09-04 18:45] LABS: ALT 14 U/L (4-34); AST 24 U/L (14-36); African American GFR (CKD) >90 (>60 ml/min/1.73 sqM); Albumin 2.4 g/dL (3.5-5.0); Alkaline Phosphatase 67 U/L (38-126); Anion Gap 3 mmol/L; Blood Urea Nitrogen 7 mg/dL (7-17); Calcium 8.2 mg/dL (8.4-10.2); Carbon Dioxide 29 mmol/L (22-30); Chloride 103 mmol/L (98-107); Globulin 2.5 g/dL; Glucose 146 mg/dL (74-99); Non-African American GFR(CKD) >90 (>60 ml/min/1.73 sqM); Potassium 4.3 mmol/L (3.5-5.1); Sodium 135 mmol/L (137-145); Total Bilirubin 0.1 mg/dL (0.2-1.3); Total Protein 4.9 g/dL (6.3-8.2)
--- NOTE | 2020-09-04 20:21 | PN ---
PROGRESS NOTE DATE OF SERVICE: 09/04/2020 This 69-year-old woman who was admitted with nausea and vomiting secondary to gastric dilatation had a gastrojejunostomy. No chest pain. No palpitations. No fever. The patient is receiving TPN. The sodium is 134 and potassium is 2.9. PHYSICAL EXAMINATION: Alert and oriented x3. Pulse 97, blood pressure 171/94, respiration 20, temperature 98.1, pulse ox 98% on room air. HEENT: Conjunctivae normal. Oral mucosa moist. NECK: No jugular venous distention. No lymph node enlargement. CARDIOVASCULAR: S1, S2, muffled. No S3, no S4, RESPIRATORY: Diminished breath sounds at the bases. A few scattered rhonchi. ABDOMEN: Soft, nontender. LEGS: No edema, no swelling. NERVOUS SYSTEM: No focal deficits. REVIEW OF SYSTEMS: CARDIOVASCULAR: No angina. RESPIRATORY: As mentioned earlier. GI: As mentioned earlier. NERVOUS SYSTEM: No numbness or weakness. MEDICATIONS: Reviewed. ASSESSMENT: 1. Acute gastric dilatation, gastric outlet obstruction status post gastrojejunostomy. 2. Severe hypokalemia. 3. Hyponatremia. 4. TPN. 5. Urine culture showing Enterococcus faecium and VRE, possible colonization. 6. Elevated troponin of undetermined significance. 7. Coronary disease. 8. Hypertension. 9. Hyperlipidemia. 10.Hypophosphatemia. 11.Anemia, normocytic anemia of chronic disease. 12.FULL CODE. RECOMMENDATIONS: This 75-year-old woman who presented with multiple complex medical issues, we will monitor the patient closely, monitor potassium closely. adjust the potassium in the TPN. K-Phos has also been given. Repeat labs. Repeat CBC. Closely follow with Surgery. Prognosis guarded because of multiple complex medical issues. Further recommendations to follow. MMODL / IJN: [id number] /
[2020-09-04] MEDS: ONDANSETRON 4 MG/2 ML VIAL IVP PRN (22:25)
[2020-09-04] MEDS: HYDROcodone/APAP 5-325MG 1 EACH TAB PO PRN (22:26)
[2020-09-04] MEDS: LACTATED RINGERS 1,000 ML IV SCH (22:27)
[2020-09-04 22:56] LABS: Appearance,Urine Clear (Clear); Bilirubin,Urine Negative (Negative); Blood,Urine Negative (Negative); Color,Urine Colorless; Glucose,Urine (UA) Negative (Negative); Ketones,Urine Negative (Negative); Leukocyte Esterase,Urine Negative (Negative); Nitrite,Urine Negative (Negative); Protein,Urine Negative (Negative); Specific Gravity,Urine 1.006 (1.001-1.035); Urobilinogen,Urine <2.0 mg/dL (<2.0)
[2020-09-05 00:54] LABS: Glucose,Whole Blood 158 mg/dL (75-99)
[2020-09-05] MEDS: MORPHINE SULFATE 2 MG/ML SYRINGE IVP PRN ×2 (03:49→19:26)
[2020-09-05 05:49] LABS: African American GFR (CKD) >90 (>60 ml/min/1.73 sqM); Anion Gap 2 mmol/L; Blood Urea Nitrogen 10 mg/dL (7-17); Calcium 8.3 mg/dL (8.4-10.2); Carbon Dioxide 28 mmol/L (22-30); Chloride 104 mmol/L (98-107); Glucose 128 mg/dL (74-99); Magnesium 1.8 mg/dL (1.6-2.3); Non-African American GFR(CKD) >90 (>60 ml/min/1.73 sqM); Phosphorus 2.2 mg/dL (2.5-4.5); Potassium 5.2 mmol/L (3.5-5.1); Sodium 134 mmol/L (137-145)
[2020-09-05 07:10] LABS: Glucose,Whole Blood 137 mg/dL (75-99)
[2020-09-05] MEDS: PANTOPRAZOLE 40 MG/10 ML VIAL IVP SCH ×2 (08:59→19:22)
[2020-09-05] MEDS: amLODIPine 5 MG TAB PO SCH (09:00)
[2020-09-05] MEDS: FOLIC ACID 1 MG TAB PO SCH (09:00)
[2020-09-05] MEDS: SERTRALINE 50 MG TAB PO SCH (09:00)
[2020-09-05] MEDS: ERGOCALCIFEROL 1,250 MCG (50,000 IU) CAPSULE PO SCH (09:01)
[2020-09-05] MEDS: OXYBUTYNIN CHLORIDE 5 MG TAB PO SCH ×3 (09:01→21:30)
[2020-09-05 09:12] LABS: Basophils # (A) 0.02 X 10*3/uL (0.00-0.10); Basophils % (A) 0.3 %; Eosinophils # (A) 0.08 X 10*3/uL (0.04-0.35); Eosinophils % (A) 1.2 %; HCT 29.5 % (37.2-46.3); HGB 9.2 g/dL (12.0-15.0); Lymphocytes # (A) 1.52 X 10*3/uL (0.90-5.00); Lymphocytes % (A) 22.8 %; MCH 28.6 pg (27.0-32.0); MCHC 31.2 g/dL (32.0-37.0); MCV 91.6 fL (80.0-97.0); Monocytes # (A) 0.95 X 10*3/uL (0.20-1.00); Monocytes % (A) 14.2 %; Neutrophils # (A) 3.84 X 10*3/uL (1.80-7.70); Neutrophils % (A) 57.6 %; Platelet Count 397 X 10*3/uL (140-440); RBC 3.22 X 10*6/uL (4.10-5.20); RDW 15.7 % (11.5-14.5); WBC 6.67 X 10*3/uL (4.50-10.00)
[2020-09-05] MEDS: SODIUM PHOSPHATE 10 MMOL in SODIUM CHLORIDE 0.9% 100 ML IVPB SCH ×2 (09:38→11:48)
[2020-09-05] MEDS ORDERED: MVI, ADULT NO.4 WITH VIT K 10 ML, TRACE (CONC-1ML/DOSE) 1 ML, SODIUM CHLORIDE 4MEQ/ML V... IV SCH ×7 (10:00)
[2020-09-05] MEDS: MVI, ADULT NO.4 WITH VIT K 10 ML, TRACE (CONC-1ML/DOSE) 1 ML, SODIUM CHLORIDE 4MEQ/ML V... IV SCH ×5 (10:04)
[2020-09-05] MEDS: SODIUM CHLORIDE 0.9% 1,000 ML IV SCH ×2 (10:05→21:30)
--- NOTE | 2020-09-05 12:28 | P.PN ---
Subjective Progress Note Date: 09/05/20 Principal diagnosis: Gastric outlet obstruction Patient feeling well today. Says her pain is less. She did pass flatus. No bowel movement. White blood cell count is normal. She is afebrile. Nasogastric tube output is relatively low. Objective - Vital Signs Vital signs: Vital Signs Temp 98.3 F 09/05/20 07:00 Pulse 83 09/05/20 07:00 Resp 16 09/05/20 07:00 BP 122/75 09/05/20 07:00 Pulse Ox 93 L 09/05/20 07:00 Intake & Output 09/04/20 09/05/20 09/05/20 18:59 06:59 18:59 Intake Total 100 Output Total 350 0 Balance -250 0 Weight 49.5 kg 49.5 kg Intake: Oral 100 Output: Gastric Drainage 350 Stool 0 0 Other: Voiding Method Diaper Diaper Incontinent Incontinent # Voids 1 2 1 - Exam Abdomen: Soft, nondistended, incision with small amount of drainage in the middle which is serous, minimal tenderness - Labs CBC & Chem 7: 09/05/20 04:38 09/05/20 04:38 Labs: Abnormal Lab Results - Last 24 Hours (Table) 09/04/20 09/04/20 09/04/20 Range/Units 12:47 18:17 18:41 RBC (4.10-5.20) X 10*6/uL Hgb (12.0-15.0) g/dL Hct (37.2-46.3) % MCHC (32.0-37.0) g/dL RDW (11.5-14.5) % Immature Gran # (0.00-0.04) X 10*3/uL Sodium 135 L (137-145) mmol/L Potassium (3.5-5.1) mmol/L Creatinine 0.28 L (0.52-1.04) mg/dL Glucose 146 H (74-99) mg/dL POC Glucose (mg/dL) 142 H 149 H (75-99) mg/dL Calcium 8.2 L (8.4-10.2) mg/dL Phosphorus (2.5-4.5) mg/dL Total Bilirubin 0.1 L (0.2-1.3) mg/dL Total Protein 4.9 L (6.3-8.2) g/dL Albumin 2.4 L (3.5-5.0) g/dL 09/05/20 09/05/20 09/05/20 Range/Units 00:53 04:38 04:38 RBC 3.22 L (4.10-5.20) X 10*6/uL Hgb 9.2 L (12.0-15.0) g/dL Hct 29.5 L (37.2-46.3) % MCHC 31.2 L (32.0-37.0) g/dL RDW 15.7 H (11.5-14.5) % Immature Gran # 0.26 H (0.00-0.04) X 10*3/uL Sodium 134 L (137-145) mmol/L Potassium 5.2 H (3.5-5.1) mmol/L Creatinine 0.26 L (0.52-1.04) mg/dL Glucose 128 H (74-99) mg/dL POC Glucose (mg/dL) 158 H (75-99) mg/dL Calcium 8.3 L (8.4-10.2) mg/dL Phosphorus 2.2 L (2.5-4.5) mg/dL Total Bilirubin (0.2-1.3) mg/dL Total Protein (6.3-8.2) g/dL Albumin (3.5-5.0) g/dL 09/05/20 Range/Units 07:09 RBC (4.10-5.20) X 10*6/uL Hgb (12.0-15.0) g/dL Hct (37.2-46.3) % MCHC (32.0-37.0) g/dL RDW (11.5-14.5) % Immature Gran # (0.00-0.04) X 10*3/uL Sodium (137-145) mmol/L Potassium (3.5-5.1) mmol/L Creatinine (0.52-1.04) mg/dL Glucose (74-99) mg/dL POC Glucose (mg/dL) 137 H (75-99) mg/dL Calcium (8.4-10.2) mg/dL Phosphorus (2.5-4.5) mg/dL Total Bilirubin (0.2-1.3) mg/dL Total Protein (6.3-8.2) g/dL Albumin (3.5-5.0) g/dL Assessment and Plan (1) Gastric outlet obstruction Narrative/Plan: Patient doing well at this time. We'll remove nasogastric tube. Continue ice chips and popsicles only. Hopefully advance diet tomorrow. Current Visit: Yes Status: Acute Code(s): K31.1 - ADULT HYPERTROPHIC PYLORIC STENOSIS SNOMED Code(s): 021328701
[2020-09-05 13:10] LABS: Glucose,Whole Blood 136 mg/dL (75-99)
--- NOTE | 2020-09-05 13:20 | PN ---
PROGRESS NOTE DATE OF SERVICE: 09/05/2020 This 69-year-old woman who was admitted with vomiting, secondary to gastric dilatation, also had a gastrojejunostomy. No chest pain. No palpitations. No fever. Potassium is 5.2. PHYSICAL EXAMINATION: Alert and oriented x3. Pulse is 83. Blood pressure 122/70, respirations 16, temperature 98.2, pulse ox 98% on room air. HEENT: Conjunctivae normal. NECK: No JVD. CARDIOVASCULAR: S1, S2 muffled. RESPIRATIONS: Breath sounds diminished in the bases. A few scattered rhonchi. ABDOMEN: Soft. Status post surgery. NG tube in situ. LEGS are no edema. No swelling. NERVOUS SYSTEM: No focal deficits. LAB: Hemoglobin 9.2. Sodium 134, potassium 5.2. ASSESSMENT: 1. Acute gastric dilatation, gastric outlet obstruction, status post gastrojejunostomy. 2. Severe hypokalemia. 3. Hyponatremia. 4. TPN. 5. Urine culture showing Enterococcus faecium and VRE, possible colonization. 6. Elevated troponin of undetermined significance. 7. History of coronary artery disease. 8. Hypertension. 9. Hyperlipidemia. 10.Hypophosphatemia. 11.Anemia, normocytic anemia of chronic disease. 12.FULL CODE. RECOMMENDATIONS AND DISCUSSION: Recommend to continue current medications, management and symptomatic treatment. Otherwise at this time, I would recommend continue the current medications. Repeat labs. Continue the TPN and check for potassium. Further recommendations to follow. MMODL / IJN: [id number] /
[2020-09-05] MEDS: FAT EMULSION 20% 250 ML in EMPTY BAG 1 BAG IV SCH (15:35)
[2020-09-05 18:59] LABS: Glucose,Whole Blood 114 mg/dL (75-99)
[2020-09-05] MEDS: LACTATED RINGERS 1,000 ML IV SCH (19:21)
[2020-09-06] MEDS: MORPHINE SULFATE 2 MG/ML SYRINGE IVP PRN ×2 (01:08→22:51)
[2020-09-06 01:21] LABS: Glucose,Whole Blood 111 mg/dL (75-99)
[2020-09-06 06:25] LABS: African American GFR (CKD) >90 (>60 ml/min/1.73 sqM); Anion Gap 3 mmol/L; Blood Urea Nitrogen 8 mg/dL (7-17); Calcium 8.1 mg/dL (8.4-10.2); Carbon Dioxide 27 mmol/L (22-30); Chloride 104 mmol/L (98-107); Glucose 99 mg/dL (74-99); Non-African American GFR(CKD) >90 (>60 ml/min/1.73 sqM); Sodium 134 mmol/L (137-145)
[2020-09-06 06:30] LABS: Phosphorus 3.1 mg/dL (2.5-4.5); Potassium 4.3 mmol/L (3.5-5.1)
[2020-09-06 06:31] LABS: Magnesium 1.7 mg/dL (1.6-2.3)
[2020-09-06] MEDS: SERTRALINE 50 MG TAB PO SCH (09:20)
[2020-09-06] MEDS: OXYBUTYNIN CHLORIDE 5 MG TAB PO SCH ×3 (09:20→21:11)
[2020-09-06] MEDS: FOLIC ACID 1 MG TAB PO SCH (09:20)
[2020-09-06] MEDS: amLODIPine 5 MG TAB PO SCH (09:21)
[2020-09-06] MEDS: PANTOPRAZOLE 40 MG/10 ML VIAL IVP SCH ×2 (09:22→21:11)
[2020-09-06] MEDS: MAGNESIUM SULFATE-D5W PMX 1 GM in DEXTROSE/WATER 1 100ML.BAG IVPB SCH ×2 (09:26→10:32)
[2020-09-06] MEDS: MVI, ADULT NO.4 WITH VIT K 10 ML, TRACE (CONC-1ML/DOSE) 1 ML, SODIUM CHLORIDE 4MEQ/ML V... IV SCH ×5 (10:05)
--- NOTE | 2020-09-06 11:26 | P.PN ---
Subjective Progress Note Date: 09/06/20 Principal diagnosis: Gastric outlet obstruction Patient doing well today. Still having mild discomfort. Tolerating ice chips and popsicles. No nausea or vomiting. Objective - Vital Signs Vital signs: Vital Signs Temp 98.4 F 09/06/20 07:00 Pulse 96 09/06/20 07:00 Resp 17 09/06/20 07:00 BP 124/79 09/06/20 07:00 Pulse Ox 96 09/06/20 07:00 Intake & Output 09/05/20 09/06/20 09/06/20 18:59 06:59 18:59 Output Total 960 1400 600 Balance -960 -1400 -600 Weight 49.5 kg 47.5 kg Output: Urine 960 1400 600 Stool 0 0 Other: Voiding Method Diaper Diaper Diaper Incontinent Incontinent Incontinent External Catheter External Catheter External Catheter # Voids 1 - Exam Abdomen: Soft, nondistended, incision clean and dry, minimal tenderness - Labs CBC & Chem 7: 09/05/20 04:38 09/06/20 05:50 Labs: Abnormal Lab Results - Last 24 Hours (Table) 09/05/20 09/05/20 09/06/20 Range/Units 13:08 18:57 01:20 Sodium (137-145) mmol/L Creatinine (0.52-1.04) mg/dL POC Glucose (mg/dL) 136 H 114 H 111 H (75-99) mg/dL Calcium (8.4-10.2) mg/dL 09/06/20 Range/Units 05:50 Sodium 134 L (137-145) mmol/L Creatinine 0.23 L (0.52-1.04) mg/dL POC Glucose (mg/dL) (75-99) mg/dL Calcium 8.1 L (8.4-10.2) mg/dL Assessment and Plan (1) Gastric outlet obstruction Narrative/Plan: Patient doing well at this time. We will begin clear liquid diet. Ambulate. Current Visit: Yes Status: Acute Code(s): K31.1 - ADULT HYPERTROPHIC PYLORIC STENOSIS SNOMED Code(s): 010665845
[2020-09-06 11:57] LABS: Glucose,Whole Blood 131 mg/dL (75-99)
[2020-09-06] MEDS: HYDROcodone/APAP 5-325MG 1 EACH TAB PO PRN ×2 (14:15→21:11)
[2020-09-06] MEDS: FAT EMULSION 20% 250 ML in EMPTY BAG 1 BAG IV SCH (15:53)
[2020-09-06] MEDS: SODIUM CHLORIDE 0.9% 1,000 ML IV SCH (16:01)
[2020-09-06 18:37] LABS: Glucose,Whole Blood 114 mg/dL (75-99)
[2020-09-06] MEDS: LACTATED RINGERS 1,000 ML IV SCH (19:09)
--- NOTE | 2020-09-06 19:18 | PN ---
PROGRESS NOTE DATE OF SERVICE: 09/06/2020 INTERVAL HISTORY: This is a 75-year-old woman who was admitted with acute gastric dilatation. Also had surgery. The patient is off NG tube at this time. Surgery is following the patient. No chest pain. No palpitations. No fever. PHYSICAL EXAMINATION: GENERAL: Patient is alert and oriented times two. VITAL SIGNS: Pulse 99, blood pressure 137/84, respirations 17, temperature 98.2, pulse ox 96% on room air. HEENT: Conjunctivae normal. Oral mucosa moist. NECK: No jugular venous distention. No carotid bruits. No lymph node enlargement. RESPIRATORY: Breath sounds diminished at the bases. No rhonchi, no crackles. HEART: S1 and S2, muffled. ABDOMEN: Soft, status post surgery. EXTREMITIES: No edema, no swelling. NERVOUS: No focal deficits. LABS: Sodium 133, hemoglobin 9.2. ASSESSMENT: 1. Acute gastric dilatation, gastric outlet obstruction, status post gastrojejunostomy. 2. Severe hypokalemia. 3. Hyponatremia. 4. TPN. 5. Urine culture showing Enterococcus species and VRE, possible colonization. 6. Elevated troponin of indeterminate significance. 7. History of coronary artery disease. 8. Hypertension. 9. Hyperlipidemia. 10.Hypophosphatemia. 11.Anemia, normocytic anemia of chronic disease. 12.FULL CODE. RECOMMENDATION AND DISCUSSION: Recommend to continue the current medications, symptomatic treatment. Otherwise at this time I would recommend repeat labs. Closely follow with surgery. Continue PT/OT evaluation. Guarded prognosis. Further recommendation to follow. The possibilities are [facility] [place]. MMODL / IJN: [id number] /
[2020-09-07 00:10] LABS: Glucose,Whole Blood 119 mg/dL (75-99)
[2020-09-07] MEDS: SODIUM CHLORIDE 0.9% 1,000 ML IV SCH ×2 (00:26→04:28)
[2020-09-07] MEDS: HYDROcodone/APAP 5-325MG 1 EACH TAB PO PRN ×2 (03:24→18:06)
[2020-09-07 06:12] LABS: Glucose,Whole Blood 97 mg/dL (75-99)
[2020-09-07 06:44] LABS: African American GFR (CKD) >90 (>60 ml/min/1.73 sqM); Anion Gap 3 mmol/L; Blood Urea Nitrogen 8 mg/dL (7-17); Calcium 7.4 mg/dL (8.4-10.2); Carbon Dioxide 25 mmol/L (22-30); Chloride 107 mmol/L (98-107); Glucose 98 mg/dL (74-99); Magnesium 1.9 mg/dL (1.6-2.3); Non-African American GFR(CKD) >90 (>60 ml/min/1.73 sqM); Phosphorus 2.7 mg/dL (2.5-4.5); Potassium 3.4 mmol/L (3.5-5.1); Sodium 135 mmol/L (137-145)
[2020-09-07 07:03] LABS: Glucose,Whole Blood 114 mg/dL (75-99)
[2020-09-07 07:20] LABS: HCT 25.5 % (34.0-46.0); HGB 8.2 gm/dL (11.4-16.0); Hypochromasia Slight; MCH 28.4 pg (25.0-35.0); MCV 88.7 fL (80.0-100.0); Mean Platelet Volume 9.2; Platelet Count 328 k/uL (150-450); RBC 2.88 m/uL (3.80-5.40); WBC 6.1 k/uL (3.8-10.6)
[2020-09-07] MEDS: amLODIPine 5 MG TAB PO SCH (08:59)
[2020-09-07] MEDS: FOLIC ACID 1 MG TAB PO SCH (08:59)
[2020-09-07] MEDS: SERTRALINE 50 MG TAB PO SCH (09:00)
[2020-09-07] MEDS: OXYBUTYNIN CHLORIDE 5 MG TAB PO SCH ×3 (09:00→22:47)
[2020-09-07] MEDS: POTASSIUM CHLORIDE ER 20 MEQ TAB.ER PO SCH ×2 (09:00→10:04)
[2020-09-07] MEDS: PANTOPRAZOLE 40 MG/10 ML VIAL IVP SCH ×2 (09:00→22:47)
[2020-09-07 09:35] LABS: Band Neutrophils % 2 %; Basophils # (M) 0.06 k/uL (0-0.2); Eosinophils # (M) 0.12 k/uL (0-0.7); Lymphocytes # (M) 1.16 k/uL (1.0-4.8); Metamyelocytes # (M) 0.12 k/uL (0); Metamyelocytes % 2 %; Monocytes # (M) 0.43 k/uL (0-1.0); Myelocytes # (M) 0.06 k/uL (0); Myelocytes % 1 %; Neutrophils % (M) 68 %; Nucleated Red Blood Cells 0 /100 WBC (0-0); Total Cells Counted 200
[2020-09-07] MEDS: MAGNESIUM SULFATE-D5W PMX 1 GM in DEXTROSE/WATER 1 100ML.BAG IVPB SCH ×2 (10:05→12:40)
[2020-09-07] MEDS: MVI, ADULT NO.4 WITH VIT K 10 ML, TRACE (CONC-1ML/DOSE) 1 ML, SODIUM CHLORIDE 4MEQ/ML V... IV SCH ×5 (11:02)
[2020-09-07 11:49] LABS: Glucose,Whole Blood 136 mg/dL (75-99)
[2020-09-07] MEDS ORDERED: POTASSIUM CHLORIDE ER 20 MEQ TAB.ER PO STA (13:54)
--- NOTE | 2020-09-07 14:02 | P.PN ---
Subjective Progress Note Date: 09/07/20 CHIEF COMPLAINT: Abdominal distention HISTORY OF PRESENT ILLNESS: Surgical service is following regards to patient's gastric outlet obstruction. She is status post gastrojejunostomy on 09/01/2020. She is tolerating clear liquid diet. Denies any nausea or vomiting. She is having flatus. She reports that her pain is controlled. She is also on TPN for nutrition support. She is afebrile. WBC 6.1 hemoglobin 8.2 platelets 328 sodium 135 potassium 3.4 creatinine 0.31 Patient seen and examined with Dr. nieves PHYSICAL EXAM: VITAL SIGNS: Reviewed. GENERAL: Well-developed in no acute distress. HEENT: No sclera icterus. Extraocular movements grossly intact. Moist buccal mucosa. Head is atraumatic, normocephalic. ABDOMEN: Soft. Nondistended. Epigastric tenderness NEUROLOGIC: Alert and oriented. Cranial nerves II through XII grossly intact. ASSESSMENT: 1. Gastric outlet obstruction status post gastrojejunostomy PLAN: -Advance diet to soft, dysphagia chopped diet -Continue TPN -Replace potassium -Continue pain medication as needed Physician [employer] Director note has been reviewed by physician. Signing provider agrees with the documented findings, assessment, and plan of care. Objective - Vital Signs Vital signs: Vital Signs Temp 98.6 F 09/07/20 07:00 Pulse 88 09/07/20 07:00 Resp 14 09/07/20 07:00 BP 116/68 09/07/20 07:00 Pulse Ox 95 09/07/20 07:00 Intake & Output 09/06/20 09/07/20 09/07/20 18:59 06:59 18:59 Intake Total 598 510 3628.5 Output Total 1600 900 Balance -1420 -800 1473.5 Weight 49.8 kg 49.8 kg Intake: IV 375 Sodium Chloride 0.9% 1, 375 000 ml @ 75 mls/hr IV . [id number] [facility] Rx#:[id number] Intake, IV Titration 848.5 Amount Magnesium Sulfate-D5w Pmx 100 1 gm In Dextrose/Water 1 100ml.bag @ 100 mls/hr IVPB Q1H [facility] Rx#: [id number] Mvi, Adult No.4 with Vit 748.5 K 10 ml Trace (Conc-1Ml/ Dose) 1 ml Sodium Chloride 4Meq/ml Vial 36 meq Magnesium Sulfate gm 0.5 gm In Amino Acid 5%- D15w+Lytes*E* 1,000 ml @ 30 mls/hr IV .Q24H [facility] Rx #:[id number] Oral 180 100 100 TPN/PPN 150 Sodium Chloride 0.9% 1, 150 000 ml @ 75 mls/hr IV . [id number] [facility] Rx#:[id number] Output: Urine 1600 900 Stool 0 Other: Voiding Method Diaper Diaper Incontinent Incontinent External Catheter External Catheter - Labs CBC & Chem 7: 09/07/20 05:27 09/07/20 05:27 Labs: Abnormal Lab Results - Last 24 Hours (Table) 09/06/20 09/07/20 09/07/20 Range/Units 18:36 00:09 05:27 RBC (3.80-5.40) m/uL Hgb (11.4-16.0) gm/dL Hct (34.0-46.0) % RDW (11.5-15.5) % Metamyelocytes # (Man) (0) k/uL Myelocytes # (Manual) (0) k/uL Sodium 135 L (137-145) mmol/L Potassium 3.4 L (3.5-5.1) mmol/L Creatinine 0.31 L (0.52-1.04) mg/dL POC Glucose (mg/dL) 114 H 119 H (75-99) mg/dL Calcium 7.4 L (8.4-10.2) mg/dL 09/07/20 09/07/20 09/07/20 Range/Units 05:27 07:02 11:47 RBC 2.88 L (3.80-5.40) m/uL Hgb 8.2 L (11.4-16.0) gm/dL Hct 25.5 L (34.0-46.0) % RDW 16.0 H (11.5-15.5) % Metamyelocytes # (Man) 0.12 H (0) k/uL Myelocytes # (Manual) 0.06 H (0) k/uL Sodium (137-145) mmol/L Potassium (3.5-5.1) mmol/L Creatinine (0.52-1.04) mg/dL POC Glucose (mg/dL) 114 H 136 H (75-99) mg/dL Calcium (8.4-10.2) mg/dL
[2020-09-07] MEDS: FAT EMULSION 20% 250 ML in EMPTY BAG 1 BAG IV SCH (16:07)
[2020-09-07 17:38] LABS: Glucose,Whole Blood 115 mg/dL (75-99)
--- NOTE | 2020-09-07 19:43 | PN ---
PROGRESS NOTE DATE OF SERVICE: 09/07/2020 This 75-year-old woman who was admitted with acute gastric dilatation and gastric outlet obstruction, is being closely monitored. No chest pain. No palpitations. No fever. PHYSICAL EXAMINATION: Alert and oriented x3. Pulse is 88, blood pressure 119/71, respirations 16, temperature 98.2, pulse ox 98% on room air. HEENT: Conjunctivae normal. Oral mucosa moist. NECK: No jugular venous distention. No lymph node enlargement. CARDIOVASCULAR: S1, S2, muffled. No S3, no S4, RESPIRATORY: Diminished breath sounds at the bases. Scattered rhonchi. ABDOMEN: Soft, nontender. LEGS: No edema, no swelling. NERVOUS SYSTEM: No focal deficits. LAB STUDIES: WBC 6.9, hemoglobin is 8.2, sodium 135, potassium 3.4. ASSESSMENT: 1. Acute gastric dilatation with gastric outlet obstruction status post gastrojejunostomy. 2. Severe hypokalemia. 3. Hyponatremia. 4. Was on TPN. 5. Urine culture showing Enterococcus species, VRE, possible colonization. 6. Elevated troponin of indeterminate significance. 7. History of CAD. 8. Hypertension. 9. Hyperlipidemia. 10.Hypophosphatemia. 11.Anemia, normocytic anemia of chronic disease. 12.FULL CODE. RECOMMENDATIONS: Recommend to continue current management and symptomatic treatment. Otherwise, at this repeat labs. Guarded prognosis because of multiple complex medical issues. PT/OT. Increase ambulation. Guarded prognosis. Further recommendations to follow. MMODL / IJN: [id number] /
[2020-09-07 20:56] LABS: Glucose,Whole Blood 122 mg/dL (75-99)
[2020-09-07] MEDS: LACTATED RINGERS 1,000 ML IV SCH (22:50)
[2020-09-07] MEDS: MORPHINE SULFATE 2 MG/ML SYRINGE IVP PRN (22:53)
[2020-09-08] MEDS: SODIUM CHLORIDE 0.9% 1,000 ML IV SCH ×2 (04:53→16:29)
[2020-09-08 05:15] LABS: Glucose,Whole Blood 106 mg/dL (75-99)
[2020-09-08 06:23] LABS: ALT 14 U/L (4-34); AST 39 U/L (14-36); African American GFR (CKD) >90 (>60 ml/min/1.73 sqM); Albumin 2.1 g/dL (3.5-5.0); Albumin/Globulin Ratio 0.8; Alkaline Phosphatase 75 U/L (38-126); Anion Gap 2 mmol/L; Blood Urea Nitrogen 9 mg/dL (7-17); Calcium 7.7 mg/dL (8.4-10.2); Carbon Dioxide 24 mmol/L (22-30); Chloride 108 mmol/L (98-107); Globulin 2.6 g/dL; Glucose 104 mg/dL (74-99); Non-African American GFR(CKD) >90 (>60 ml/min/1.73 sqM); Phosphorus 2.6 mg/dL (2.5-4.5); Potassium 4.1 mmol/L (3.5-5.1); Sodium 134 mmol/L (137-145); Total Bilirubin 0.3 mg/dL (0.2-1.3); Total Protein 4.7 g/dL (6.3-8.2)
[2020-09-08 07:03] LABS: Glucose,Whole Blood 111 mg/dL (75-99)
[2020-09-08] MEDS: amLODIPine 5 MG TAB PO SCH (08:28)
[2020-09-08] MEDS: SERTRALINE 50 MG TAB PO SCH (08:28)
[2020-09-08] MEDS: OXYBUTYNIN CHLORIDE 5 MG TAB PO SCH ×3 (08:28→19:59)
[2020-09-08] MEDS: FOLIC ACID 1 MG TAB PO SCH (08:28)
[2020-09-08] MEDS: PANTOPRAZOLE 40 MG/10 ML VIAL IVP SCH ×2 (08:29→19:58)
[2020-09-08] MEDS: HYDROcodone/APAP 5-325MG 1 EACH TAB PO PRN ×2 (09:41→16:33)
[2020-09-08 10:33] LABS: HCT 26.3 % (37.2-46.3); HGB 7.9 g/dL (12.0-15.0); MCH 27.9 pg (27.0-32.0); MCV 92.9 fL (80.0-97.0); Mean Platelet Volume 11.3 fL (9.5-12.2); Platelet Count 326 X 10*3/uL (140-440); RBC 2.83 X 10*6/uL (4.10-5.20); RDW 15.9 % (11.5-14.5); WBC 7.04 X 10*3/uL (4.50-10.00)
[2020-09-08] MEDS: MVI, ADULT NO.4 WITH VIT K 10 ML, TRACE (CONC-1ML/DOSE) 1 ML, SODIUM CHLORIDE 4MEQ/ML V... IV SCH ×5 (11:27)
[2020-09-08 11:42] LABS: Basophils # (M) 0.07 X 10*3/uL (0.00-0.10); Eosinophils # (M) 0.07 X 10*3/uL (0.04-0.35); Lymphocytes # (M) 2.53 X 10*3/uL (0.90-5.00); Metamyelocytes % 2 % (0-0); Monocytes # (M) 0.07 X 10*3/uL (0.20-1.00); Myelocytes % 2 % (0-0); Neutrophils # (M) 4.01 X 10*3/uL (2.00-8.90); Neutrophils % (M) 57 %
[2020-09-08 11:43] LABS: Glucose,Whole Blood 136 mg/dL (75-99)
--- NOTE | 2020-09-08 13:26 | P.PN ---
Subjective Progress Note Date: 09/08/20 CHIEF COMPLAINT: Abdominal distention HISTORY OF PRESENT ILLNESS: Surgical service is following regards to patient's gastric outlet obstruction. She is status post gastrojejunostomy on 09/01/2020. She is tolerating dysphagia chopped diet. She had about 50% of her morning tray. Denies any nausea or vomiting. She is having flatus. She does report mild stomach pain after eating. The pain does come and go. Pain is controlled with pain medication. She is also on TPN for nutrition support. She is afebrile. WBC 7.04 hemoglobin 7.9 potassium 4.1 creatinine 0.31 patient has been working with PT OT. And is planning to be discharged to [facility]. Patient seen and examined with Dr. nieves PHYSICAL EXAM: VITAL SIGNS: Reviewed. GENERAL: Well-developed in no acute distress. HEENT: No sclera icterus. Extraocular movements grossly intact. Moist buccal mucosa. Head is atraumatic, normocephalic. ABDOMEN: Soft. Nondistended. Epigastric tenderness NEUROLOGIC: Alert and oriented. Cranial nerves II through XII grossly intact. ASSESSMENT: 1. Gastric outlet obstruction status post gastrojejunostomy PLAN: -Continue dysphagia chopped diet -Dietitian to start weaning patient off the TPN -Continue pain medication as needed -Continue PT OT Physician Field Service Supervisor note has been reviewed by physician. Signing provider agrees with the documented findings, assessment, and plan of care. Objective - Vital Signs Vital signs: Vital Signs Temp 98.9 F 09/08/20 07:00 Pulse 91 09/08/20 07:00 Resp 18 09/08/20 13:12 BP 122/72 09/08/20 07:00 Pulse Ox 96 09/08/20 07:00 Intake & Output 09/07/20 09/08/20 09/08/20 18:59 06:59 18:59 Intake Total 1873.5 240 100 Output Total 400 500 600 Balance 1473.5 -260 -500 Weight 49.8 kg 48.5 kg Intake: IV 375 Sodium Chloride 0.9% 1, 375 000 ml @ 75 mls/hr IV . [id number] [facility] Rx#:[id number] Intake, IV Titration 848.5 Amount Magnesium Sulfate-D5w Pmx 100 1 gm In Dextrose/Water 1 100ml.bag @ 100 mls/hr IVPB Q1H [facility] Rx#: [id number] Mvi, Adult No.4 with Vit 748.5 K 10 ml Trace (Conc-1Ml/ Dose) 1 ml Sodium Chloride 4Meq/ml Vial 36 meq Magnesium Sulfate gm 0.5 gm In Amino Acid 5%- D15w+Lytes*E* 1,000 ml @ 30 mls/hr IV .Q24H [facility] Rx #:[id number] Oral 500 240 100 TPN/PPN 150 Sodium Chloride 0.9% 1, 150 000 ml @ 75 mls/hr IV . [id number] [facility] Rx#:[id number] Output: Urine 400 500 600 Stool 0 Other: Voiding Method Diaper Incontinent External Catheter # Voids 1 1 - Labs CBC & Chem 7: 09/08/20 06:19 09/08/20 05:34 Labs: Abnormal Lab Results - Last 24 Hours (Table) 09/07/20 09/07/20 09/08/20 Range/Units 17:37 20:55 05:14 RBC (4.10-5.20) X 10*6/uL Hgb (12.0-15.0) g/dL Hct (37.2-46.3) % MCHC (32.0-37.0) g/dL RDW (11.5-14.5) % Metamyelocytes % (0-0) % Myelocytes % (0-0) % Monocytes # (Manual) (0.20-1.00) X 10*3/uL Sodium (137-145) mmol/L Chloride (98-107) mmol/L Creatinine (0.52-1.04) mg/dL Glucose (74-99) mg/dL POC Glucose (mg/dL) 115 H 122 H 106 H (75-99) mg/dL Calcium (8.4-10.2) mg/dL AST (14-36) U/L Total Protein (6.3-8.2) g/dL Albumin (3.5-5.0) g/dL 09/08/20 09/08/20 09/08/20 Range/Units 05:34 06:19 07:02 RBC 2.83 L (4.10-5.20) X 10*6/uL Hgb 7.9 L (12.0-15.0) g/dL Hct 26.3 L (37.2-46.3) % MCHC 30.0 L (32.0-37.0) g/dL RDW 15.9 H (11.5-14.5) % Metamyelocytes % 2 H (0-0) % Myelocytes % 2 H (0-0) % Monocytes # (Manual) 0.07 L (0.20-1.00) X 10*3/uL Sodium 134 L (137-145) mmol/L Chloride 108 H (98-107) mmol/L Creatinine 0.31 L (0.52-1.04) mg/dL Glucose 104 H (74-99) mg/dL POC Glucose (mg/dL) 111 H (75-99) mg/dL Calcium 7.7 L (8.4-10.2) mg/dL AST 39 H (14-36) U/L Total Protein 4.7 L (6.3-8.2) g/dL Albumin 2.1 L (3.5-5.0) g/dL 09/08/20 Range/Units 11:41 RBC (4.10-5.20) X 10*6/uL Hgb (12.0-15.0) g/dL Hct (37.2-46.3) % MCHC (32.0-37.0) g/dL RDW (11.5-14.5) % Metamyelocytes % (0-0) % Myelocytes % (0-0) % Monocytes # (Manual) (0.20-1.00) X 10*3/uL Sodium (137-145) mmol/L Chloride (98-107) mmol/L Creatinine (0.52-1.04) mg/dL Glucose (74-99) mg/dL POC Glucose (mg/dL) 136 H (75-99) mg/dL Calcium (8.4-10.2) mg/dL AST (14-36) U/L Total Protein (6.3-8.2) g/dL Albumin (3.5-5.0) g/dL
--- NOTE | 2020-09-08 16:11 | PN ---
PROGRESS NOTE DATE OF SERVICE: 09/08/2020 INTERVAL HISTORY: This 75-year-old woman was admitted with acute gastric dilatation had gastrojejunostomy. Postoperatively, the patient is on TPN. The patient closely monitored. Patient has significant weakness. ECF is a possibility. No chest pain. No palpitations. No fever. PHYSICAL EXAMINATION: Alert and oriented times three. Pulse 91, blood pressure 110/72, respirations 16, temperature 98 degrees, pulse ox 98% on room air. HEENT: Conjunctivae normal. NECK is no JVD. CARDIOVASCULAR: S1, S2 muffled. RESPIRATION: Breath sounds diminished in the bases. A few scattered rhonchi. ABDOMEN: Soft. Nontender. NERVOUS SYSTEM: No focal deficits. LABS: Hemoglobin 11.9, sodium 130. Other labs noted. ASSESSMENT: 1. Acute gastric dilatation with gastric outlet obstruction status post gastrojejunostomy. 2. Severe hypokalemia improved. 3. Hyponatremia. 4. On TPN. 5. Urine culture showing Enterococcus species VRE and possible colonization. 6. Elevated troponin of indeterminate significance. 7. History of coronary artery disease. 8. Hypertension. 9. Hyperlipidemia. 10.Hypophosphatemia. 11.Anemia, normocytic anemia of chronic disease. 12.FULL CODE. RECOMMENDATIONS AND DISCUSSION: Continue current medication, continue symptomatic treatment. Otherwise at this time, I recommend repeat labs. Guarded prognosis. Further recommendations to follow. MMODL / IJN: [id number] /
[2020-09-08 17:24] LABS: Glucose,Whole Blood 110 mg/dL (75-99)
[2020-09-08] MEDS: LACTATED RINGERS 1,000 ML IV SCH (19:58)
[2020-09-08] MEDS: ONDANSETRON 4 MG/2 ML VIAL IVP PRN (19:59)
[2020-09-09 00:30] LABS: Glucose,Whole Blood 126 mg/dL (75-99)
[2020-09-09 06:34] LABS: African American GFR (CKD) >90 (>60 ml/min/1.73 sqM); Anion Gap 0 mmol/L; Blood Urea Nitrogen 10 mg/dL (7-17); Calcium 7.9 mg/dL (8.4-10.2); Carbon Dioxide 31 mmol/L (22-30); Chloride 105 mmol/L (98-107); Glucose 98 mg/dL (74-99); Non-African American GFR(CKD) >90 (>60 ml/min/1.73 sqM); Sodium 136 mmol/L (137-145)
[2020-09-09] MEDS: SODIUM CHLORIDE 0.9% 1,000 ML IV SCH ×2 (07:54→22:03)
[2020-09-09] MEDS: amLODIPine 5 MG TAB PO SCH (07:54)
[2020-09-09] MEDS: PANTOPRAZOLE 40 MG/10 ML VIAL IVP SCH ×2 (07:54→22:03)
[2020-09-09] MEDS: FOLIC ACID 1 MG TAB PO SCH (07:54)
[2020-09-09] MEDS: SERTRALINE 50 MG TAB PO SCH (07:54)
[2020-09-09 07:55] LABS: Glucose,Whole Blood 109 mg/dL (75-99)
[2020-09-09] MEDS: OXYBUTYNIN CHLORIDE 5 MG TAB PO SCH ×3 (07:55→22:26)
[2020-09-09 09:33] LABS: Basophils # (A) 0.03 X 10*3/uL (0.00-0.10); Basophils % (A) 0.4 %; Eosinophils % (A) 1.4 %; HCT 26.8 % (37.2-46.3); HGB 8.1 g/dL (12.0-15.0); Lymphocytes # (A) 2.05 X 10*3/uL (0.90-5.00); Lymphocytes % (A) 29.2 %; MCH 27.5 pg (27.0-32.0); MCHC 30.2 g/dL (32.0-37.0); MCV 90.8 fL (80.0-97.0); Mean Platelet Volume 10.8 fL (9.5-12.2); Monocytes # (A) 1.25 X 10*3/uL (0.20-1.00); Monocytes % (A) 17.8 %; Neutrophils # (A) 3.37 X 10*3/uL (1.80-7.70); Neutrophils % (A) 47.9 %; Platelet Count 345 X 10*3/uL (140-440); RBC 2.95 X 10*6/uL (4.10-5.20); RDW 15.7 % (11.5-14.5); WBC 7.03 X 10*3/uL (4.50-10.00)
[2020-09-09] MEDS: ONDANSETRON 4 MG/2 ML VIAL IVP PRN (09:45)
--- NOTE | 2020-09-09 13:35 | P.PN ---
Subjective Progress Note Date: 09/09/20 CHIEF COMPLAINT: Abdominal distention HISTORY OF PRESENT ILLNESS: Surgical service is following regards to patient's gastric outlet obstruction. She is status post gastrojejunostomy on 09/01/2020. Patient is complaining of more abdominal pain and nausea today. She did have one episode of vomiting last night. Her diet will be downgraded back to a full liquid. Her TPN has been weaned off. She is passing gas. Denies any bowel movement. She is afebrile. WBC 7.03 hemoglobin 8.1 platelets 345 patient had declined working with physical therapy today because of her pain. Patient seen and examined with Dr. nieves PHYSICAL EXAM: VITAL SIGNS: Reviewed. GENERAL: Well-developed in no acute distress. HEENT: No sclera icterus. Extraocular movements grossly intact. Moist buccal mucosa. Head is atraumatic, normocephalic. ABDOMEN: Soft. Nondistended. Incision site clean dry and intact. No significant tenderness with palpation NEUROLOGIC: Alert and oriented. Cranial nerves II through XII grossly intact. ASSESSMENT: 1. Gastric outlet obstruction status post gastrojejunostomy PLAN: -Downgraded diet to full liquids due to nausea vomiting and abdominal pain -Continue pain medication as needed -Continue PT OT -GI prophylaxis Protonix and DVT prophylaxis subcu heparin Physician Diamond Blender note has been reviewed by physician. Signing provider agrees with the documented findings, assessment, and plan of care. Objective - Vital Signs Vital signs: Vital Signs Temp 99.3 F 09/09/20 07:00 Pulse 108 H 09/09/20 08:00 Resp 17 09/09/20 08:00 BP 129/74 09/09/20 07:00 Pulse Ox 93 L 09/09/20 07:00 Intake & Output 09/08/20 09/09/20 09/09/20 18:59 06:59 18:59 Intake Total 200 Output Total 600 1300 0 Balance -400 -1300 0 Weight 49.5 kg Intake: Oral 200 Output: Urine 600 1300 Stool 0 0 Other: Voiding Method Diaper Diaper Incontinent Incontinent External Catheter External Catheter # Voids 1 1 - Labs CBC & Chem 7: 09/09/20 05:04 09/09/20 05:04 Labs: Abnormal Lab Results - Last 24 Hours (Table) 06/02/21 06/03/21 06/03/21 Range/Units 17:20 00:29 05:04 RBC 2.95 L (4.10-5.20) X 10*6/uL Hgb 8.1 L (12.0-15.0) g/dL Hct 26.8 L (37.2-46.3) % MCHC 30.2 L (32.0-37.0) g/dL RDW 15.7 H (11.5-14.5) % Immature Gran # 0.23 H (0.00-0.04) X 10*3/uL Monocytes # 1.25 H (0.20-1.00) X 10*3/uL Sodium (137-145) mmol/L Carbon Dioxide (22-30) mmol/L Creatinine (0.52-1.04) mg/dL POC Glucose (mg/dL) 110 H 126 H (75-99) mg/dL Calcium (8.4-10.2) mg/dL 09/09/20 09/09/20 Range/Units 05:04 07:54 RBC (4.10-5.20) X 10*6/uL Hgb (12.0-15.0) g/dL Hct (37.2-46.3) % MCHC (32.0-37.0) g/dL RDW (11.5-14.5) % Immature Gran # (0.00-0.04) X 10*3/uL Monocytes # (0.20-1.00) X 10*3/uL Sodium 136 L (137-145) mmol/L Carbon Dioxide 31 H (22-30) mmol/L Creatinine 0.39 L (0.52-1.04) mg/dL POC Glucose (mg/dL) 109 H (75-99) mg/dL Calcium 7.9 L (8.4-10.2) mg/dL
[2020-09-09 13:59] LABS: ALT 294 U/L (4-34); AST 633 U/L (14-36); Albumin 2.3 g/dL (3.5-5.0); Albumin/Globulin Ratio 0.9; Alkaline Phosphatase 218 U/L (38-126); Globulin 2.5 g/dL; Magnesium 1.8 mg/dL (1.6-2.3); Phosphorus 3.2 mg/dL (2.5-4.5); Total Bilirubin 1.4 mg/dL (0.2-1.3); Total Protein 4.8 g/dL (6.3-8.2)
--- NOTE | 2020-09-09 16:36 | PN ---
PROGRESS NOTE DATE OF SERVICE: 09/09/2020 This 75-year-old woman is admitted with acute gastric dilatation as well as GJ is complaining of some vomiting today. No chest pain. No palpitations. No fever. REVIEW OF SYSTEMS: CARDIOVASCULAR: No angina. RESPIRATORY: As mentioned earlier. GI: As mentioned earlier. : No dysuria. NERVOUS SYSTEM: No numbness or weakness. CURRENT MEDICATIONS: Reviewed and include [place], Norvasc, vitamin D2, Flonase, folic acid, heparin. Doses reviewed PHYSICAL EXAMINATION: Alert and oriented times three. Pulse 102, blood pressure 120/77, respirations 16, temperature 99 degrees, pulse ox 98% on room air. HEENT: Conjunctivae normal. NECK: No JVD. CARDIOVASCULAR: S1, S2 muffled. RESPIRATION: Breath sounds diminished in the bases. A few scattered rhonchi. ABDOMEN: Soft, nontender. No mass palpable. NERVOUS SYSTEM: No focal deficits. LABS: WBC 7.3, hemoglobin is 8.1. Other labs are noted. LFTs are total bilirubin is 1.4, AST is 633 and ALT is 294. ASSESSMENT: 1. Acute gastric dilatation with gastric outlet obstruction status post gastrojejunostomy. 2. Vomiting. 3. Elevated AST/ALT acute hepatitis. 4. Severe hypokalemia improved. 5. Hyponatremia. 6. Was on TPN. 7. Urine culture showing Enterococcus species, VRE and possible colonization. 8. Elevated troponin of indeterminate significance. 9. History of coronary artery disease. 10.Hypertension. 11.Hyperlipidemia. 12.Hypophosphatemia. 13.Anemia, normocytic anemia of chronic disease. 14.FULL CODE. RECOMMENDATIONS AND DISCUSSION: I recommend to continue current medications, management and symptomatic treatment. Repeat labs. LFTs elevated. I would recommend to avoid hepatotoxic medications. I would also recommend repeat UA and urine culture also. Guarded prognosis because of multiple complex medical issues. Further recommendations to follow. Closely follow with surgery. MMODL / IJN: [id number] /
[2020-09-09 17:45] LABS: Glucose,Whole Blood 98 mg/dL (75-99)
--- NOTE | 2020-09-09 17:52 | XR ---
EXAMINATION TYPE: XR abdomen acute w cxr DATE OF EXAM: 09/09/2020 COMPARISON: Chest x-ray 08/30/2020 CT 08/27/2020 HISTORY: Vomiting TECHNIQUE: Supine, upright, and frontal chest views of the chest and abdomen are obtained. FINDINGS: Chest x-ray shows a left-sided PICC line the distal tip over the cavoatrial junction. Ther e is persistent elevation right hemidiaphragm. Contrast material is present within the colon. Suspect some subsegmental atelectatic change or scarring at the right lung base. Retained fecal debris is pr esent in the rectum. Surgical sav are present in the midline. Postop change noted to the lower jagruti mbar spine. Marked arthropathy. Remodeling of the left hip is noted. Probable phleboliths in the pelv is. There is no evidence for pneumoperitoneum. The bowel gas pattern is unremarkable as there is air throughout nondilated small and large bowel. No sizeable air fluid levels. No mass effects are seen. No unusual calcifications. IMPRESSION: Probable subsegmental basilar atelectatic change or scarring
[2020-09-09 19:13] LABS: Glucose,Whole Blood 99 mg/dL (75-99)
[2020-09-09] MEDS: LACTATED RINGERS 1,000 ML IV SCH (20:55)
[2020-09-09] MEDS: HEPARIN SODIUM,PORCINE/PF 5,000 UNIT/0.5 ML SYRINGE SQ SCH (22:03)
[2020-09-09] MEDS: MORPHINE SULFATE 2 MG/ML SYRINGE IVP PRN (22:08)
[2020-09-10 01:17] LABS: Glucose,Whole Blood 105 mg/dL (75-99)
[2020-09-10 05:44] LABS: Magnesium 1.7 mg/dL (1.6-2.3); Phosphorus 3.2 mg/dL (2.5-4.5)
[2020-09-10 07:31] LABS: Glucose,Whole Blood 93 mg/dL (75-99)
[2020-09-10] MEDS: OXYBUTYNIN CHLORIDE 5 MG TAB PO SCH ×3 (09:11→20:52)
[2020-09-10] MEDS: FOLIC ACID 1 MG TAB PO SCH (09:11)
[2020-09-10] MEDS: amLODIPine 5 MG TAB PO SCH (09:12)
[2020-09-10] MEDS: HEPARIN SODIUM,PORCINE/PF 5,000 UNIT/0.5 ML SYRINGE SQ SCH ×2 (09:12→20:49)
[2020-09-10] MEDS: PANTOPRAZOLE 40 MG/10 ML VIAL IVP SCH ×2 (09:12→20:49)
[2020-09-10] MEDS: SERTRALINE 50 MG TAB PO SCH (09:12)
[2020-09-10] MEDS: HYDROcodone/APAP 5-325MG 1 EACH TAB PO PRN ×2 (09:19→20:52)
[2020-09-10] MEDS: SODIUM CHLORIDE 0.9% 1,000 ML IV SCH ×2 (09:21→20:55)
[2020-09-10 10:30] LABS: Basophils # (A) 0.03 X 10*3/uL (0.00-0.10); Basophils % (A) 0.5 %; Eosinophils # (A) 0.12 X 10*3/uL (0.04-0.35); Eosinophils % (A) 1.9 %; HCT 25.2 % (37.2-46.3); HGB 7.6 g/dL (12.0-15.0); Lymphocytes # (A) 1.55 X 10*3/uL (0.90-5.00); Lymphocytes % (A) 23.9 %; MCH 27.6 pg (27.0-32.0); MCHC 30.2 g/dL (32.0-37.0); MCV 91.6 fL (80.0-97.0); Mean Platelet Volume 11.2 fL (9.5-12.2); Monocytes # (A) 0.97 X 10*3/uL (0.20-1.00); Neutrophils # (A) 3.62 X 10*3/uL (1.80-7.70); Neutrophils % (A) 55.8 %; Platelet Count 317 X 10*3/uL (140-440); RBC 2.75 X 10*6/uL (4.10-5.20); RDW 15.9 % (11.5-14.5); WBC 6.48 X 10*3/uL (4.50-10.00)
[2020-09-10] MEDS ORDERED: MAGNESIUM SULFATE-D5W PMX 1 GM in DEXTROSE/WATER 1 100ML.BAG IVPB ONE (12:52)
--- NOTE | 2020-09-10 12:53 | P.PN ---
Subjective Progress Note Date: 09/10/20 CHIEF COMPLAINT: Abdominal distention HISTORY OF PRESENT ILLNESS: Surgical service is following regards to patient's gastric outlet obstruction. She is status post gastrojejunostomy on 09/01/2020. Patient is complaining of abdominal pain in the epigastric area as well as her incision. She does have drainage from her incision site. She has had no further vomiting. Does admit to occasional nausea. Still has not had a bowel movement. She is passing gas. She is currently on a full liquid diet. A febrile WBC is 6.4 a hemoglobin 7.6 platelets 317 magnesium 1.7 Patient seen and examined with Dr. nieves PHYSICAL EXAM: VITAL SIGNS: Reviewed. GENERAL: Well-developed in no acute distress. HEENT: No sclera icterus. Extraocular movements grossly intact. Moist buccal mucosa. Head is atraumatic, normocephalic. ABDOMEN: Soft. Nondistended. Patient does have serosanguineous drainage at th e distal aspect of her incision. No erythema around the incision NEUROLOGIC: Alert and oriented. Cranial nerves II through XII grossly intact. ASSESSMENT: 1. Gastric outlet obstruction status post gastrojejunostomy 2. Hypomagnesemia PLAN: -1 stable removed from incision with serosanguineous drainage noted. Culture obtained. -Replace magnesium -Continue full liquid diet -Continue pain medication as needed -Continue PT OT -GI prophylaxis Protonix and DVT prophylaxis subcu heparin Physician [employer] Operator note has been reviewed by physician. Signing provider agrees with the documented findings, assessment, and plan of care. Objective - Vital Signs Vital signs: Vital Signs Temp 98.3 F 09/10/20 07:00 Pulse 88 09/10/20 07:00 Resp 17 09/10/20 07:00 BP 145/68 09/10/20 07:00 Pulse Ox 95 09/10/20 07:00 Intake & Output 09/09/20 09/10/20 09/10/20 18:59 06:59 18:59 Output Total 900 800 Balance -900 -800 Weight 49.5 kg 51 kg Output: Urine 900 800 Stool 0 Other: Voiding Method Diaper External Catheter Incontinent External Catheter # Voids 2 - Labs CBC & Chem 7: 09/10/20 04:48 09/10/20 04:48 Labs: Abnormal Lab Results - Last 24 Hours (Table) 09/09/20 09/10/2021 Range/Units 05:04 01:15 04:48 RBC 2.75 L (4.10-5.20) X 10*6/uL Hgb 7.6 L (12.0-15.0) g/dL Hct 25.2 L (37.2-46.3) % MCHC 30.2 L (32.0-37.0) g/dL RDW 15.9 H (11.5-14.5) % Immature Gran # 0.19 H (0.00-0.04) X 10*3/uL Sodium 136 L (137-145) mmol/L Carbon Dioxide 31 H (22-30) mmol/L Creatinine 0.39 L (0.52-1.04) mg/dL POC Glucose (mg/dL) 105 H (75-99) mg/dL Calcium 7.9 L (8.4-10.2) mg/dL Total Bilirubin 1.4 H (0.2-1.3) mg/dL AST 633 H (14-36) U/L ALT 294 H (4-34) U/L Alkaline Phosphatase 218 H (38-126) U/L Total Protein 4.8 L (6.3-8.2) g/dL Albumin 2.3 L (3.5-5.0) g/dL
[2020-09-10 13:32] LABS: Albumin 2.5 g/dL (3.80-4.90); Albumin/Globulin Ratio 1.25 (1.60-3.17); Calcium 8.2 mg/dL (8.7-10.3); Non-African American GFR(CKD) 110.4 (60.0-200.0); Potassium 3.8 mmol/L (3.5-5.5); Total Bilirubin 1.6 mg/dL (0.2-1.2); Total Protein 4.5 g/dL (6.2-8.2)
[2020-09-10 15:00] LABS: Glucose,Whole Blood 100 mg/dL (75-99)
[2020-09-10 15:56] LABS: Appearance,Urine Clear (Clear); Bilirubin,Urine Negative (Negative); Blood,Urine Negative (Negative); Color,Urine Yellow; Glucose,Urine (UA) Negative (Negative); Ketones,Urine Negative (Negative); Leukocyte Esterase,Urine Negative (Negative); Nitrite,Urine Negative (Negative); PH, Urine 6.5 (5.0-8.0); Protein,Urine Negative (Negative); Specific Gravity,Urine 1.008 (1.001-1.035); Urobilinogen,Urine <2.0 mg/dL (<2.0)
[2020-09-10] MEDS: IOPAMIDOL CONTRAST (ORAL USE) VIAL PO PRN ×2 (16:12→17:21)
[2020-09-10 17:32] LABS: Glucose,Whole Blood 121 mg/dL (75-99)
[2020-09-10] MEDS: ACETAMINOPHEN TAB 325 MG TAB PO PRN (18:00)
--- NOTE | 2020-09-10 18:15 | CT ---
EXAMINATION TYPE: CT abdomen pelvis wo con DATE OF EXAM: 09/10/2020 COMPARISON: 08/27/2020 HISTORY: abdominal pain, constipation CT DLP: 487.3 mGycm Automated exposure control for dose reduction was used. Images obtained from the diaphragm to the floor the pelvis with oral contrast. There is infiltrate and atelectasis right lung base. Gallbladder appears mildly dilated measuring 7.5 x 4 cm. Heart size is normal. There is no pericardial effusion. There is elevated right diaphragm. T he stomach appears intact. Stomach is somewhat dilated. Spleen is intact. There is no pancreatic mass . There is no adrenal mass. Kidneys have normal size. There is bilateral hydronephrosis and hydroureter . There are tiny calcifications in the dependent urinary bladder. I see no definite ureteral calculus . Urinary bladder is dilated measuring 13 cm. There is no free fluid in the pelvis. There is no ingui nal hernia. I see no definite bladder mass. There is no ascites. There is no free air. There is no sign of a bowel obstruction. There is oral con trast extending to the large bowel. There are some sigmoid diverticula. There is no diverticulitis. T here is Compression deformity of L1 and T12 vertebra up to 40%. there is significant deformity at the left hip joint with superior migration of the femoral head. There is some collapse of the articular surface of the left femoral head. IMPRESSION: Large gallbladder appears increased compared to old exam and could relate to cholecystitis. Chronic e levation of the right diaphragm with atelectasis at the right lung base. This appears worse than last exam. No evidence of a bowel obstruction. Bilateral mild hydronephrosis and hydroureter and mild dilated ur inary bladder. This could relate to bladder outlet obstruction. Hydronephrosis and hydroureter is ne w compared to old exam. There is possible tiny bladder calculi. No bladder mass seen. Urinary bladder increased compared to old exam. 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 Sigmoid diverticulosis. Dilated stomach also present on old exam could relate to some gastroparesi s.
--- NOTE | 2020-09-10 18:26 | PN ---
PROGRESS NOTE DATE OF SERVICE: 09/10/2020. This 75-year-old woman who was admitted after gastrojejunostomy is complaining of abdominal at this time. The patient had persistent nausea. The patient is apparently not able to tolerate a solid diet at this time. Acute abdominal series showed possibly subsequent atelectasis. PAST MEDICAL HISTORY: Reviewed. REVIEW OF SYSTEMS: CARDIOVASCULAR: No angina. RESPIRATION as mentioned earlier. GI: As mentioned earlier. : No dysuria. NERVOUS SYSTEM: No numbness or weakness. CURRENT MEDICATIONS: Reviewed and include: Tylenol, [place], Norvasc, vitamin D2, Flonase, folic acid, heparin, subcu lactated Ringers. Doses reviewed. PHYSICAL EXAMINATION: Patient is alert, oriented x2. Pulse is 85. Blood pressure 168/82, respiration 17. Temperature 98.4, pulse ox 94% on room. HEENT: Conjunctivae normal. NECK: No JVD. CARDIOVASCULAR: S1, S2 muffled. RESPIRATORY: Breath sounds diminished in the bases. A few scattered rhonchi. ABDOMEN: Soft. Status post surgery. LEGS are no edema. No swelling. NERVOUS SYSTEM: No focal deficits. LABS: WBC 6.4, hemoglobin 7.6. Otherwise total bilirubin is 1.6, AST is 374, ALT is 367, alkaline phosphatase is 393, albumin is 2.5, and is 1.25. ASSESSMENT: 1. Acute gastric dilatation with gastric outlet obstruction status post gastrojejunostomy. 2. Elevated LFTs. 3. Continued vomiting. 4. Possible atelectasis. 5. Increased AST/ALT with acute hepatitis. 6. Severe hypokalemia improved. 7. Hyponatremia. 8. Was on TPN. 9. Urine culture showing Enterococcus species, VRE and possible colonization. 10.Elevated troponin of indeterminate significance. 11.History of coronary artery disease. 12.Hypertension. 13.Hyperlipidemia. 14.Hypophosphatemia. 15.Anemia, normocytic anemia of chronic disease. 16.FULL CODE. RECOMMENDATIONS AND DISCUSSION: Recommend to continue current medications, management and symptomatic treatment. Otherwise, at this time, I recommend a repeat urine culture and repeat labs and also recommend a CT scan of the abdomen and pelvis also. We will continue to monitor. Prognosis guarded. Further recommendations to follow. MMODL / IJN: [id number] / [facility]
[2020-09-10] MEDS: LACTATED RINGERS 1,000 ML IV SCH (20:51)
[2020-09-11 06:47] LABS: African American GFR (CKD) >90 (>60 ml/min/1.73 sqM); Anion Gap 3 mmol/L; Blood Urea Nitrogen 4 mg/dL (7-17); Calcium 8.1 mg/dL (8.4-10.2); Carbon Dioxide 27 mmol/L (22-30); Chloride 105 mmol/L (98-107); Glucose 90 mg/dL (74-99); Magnesium 1.9 mg/dL (1.6-2.3); Non-African American GFR(CKD) >90 (>60 ml/min/1.73 sqM); Potassium 3.8 mmol/L (3.5-5.1); Sodium 135 mmol/L (137-145)
[2020-09-11] MEDS: SERTRALINE 50 MG TAB PO SCH (09:17)
[2020-09-11] MEDS: amLODIPine 5 MG TAB PO SCH (09:17)
[2020-09-11] MEDS: OXYBUTYNIN CHLORIDE 5 MG TAB PO SCH ×3 (09:17→21:02)
[2020-09-11] MEDS: FOLIC ACID 1 MG TAB PO SCH (09:17)
[2020-09-11] MEDS: HEPARIN SODIUM,PORCINE/PF 5,000 UNIT/0.5 ML SYRINGE SQ SCH ×2 (09:18→21:02)
[2020-09-11] MEDS: PANTOPRAZOLE 40 MG/10 ML VIAL IVP SCH ×2 (09:18→21:02)
[2020-09-11 09:21] LABS: Basophils # (A) 0.04 X 10*3/uL (0.00-0.10); Basophils % (A) 0.6 %; Eosinophils # (A) 0.11 X 10*3/uL (0.04-0.35); Eosinophils % (A) 1.5 %; HCT 25.1 % (37.2-46.3); HGB 7.7 g/dL (12.0-15.0); Lymphocytes # (A) 2.05 X 10*3/uL (0.90-5.00); Lymphocytes % (A) 28.2 %; MCH 27.7 pg (27.0-32.0); MCHC 30.7 g/dL (32.0-37.0); MCV 90.3 fL (80.0-97.0); Mean Platelet Volume 11.4 fL (9.5-12.2); Monocytes # (A) 1.07 X 10*3/uL (0.20-1.00); Monocytes % (A) 14.7 %; Neutrophils # (A) 3.86 X 10*3/uL (1.80-7.70); Neutrophils % (A) 53.2 %; Platelet Count 337 X 10*3/uL (140-440); RBC 2.78 X 10*6/uL (4.10-5.20); RDW 15.7 % (11.5-14.5); WBC 7.26 X 10*3/uL (4.50-10.00)
[2020-09-11] MEDS: ACETAMINOPHEN TAB 325 MG TAB PO PRN (14:29)
[2020-09-11] MEDS: METOCLOPRAMIDE 5 MG/ML 2 ML VIAL IVP PRN (14:29)
--- NOTE | 2020-09-11 15:19 | PN ---
PROGRESS NOTE DATE OF SERVICE: 09/11/2020 This 75-year-old woman was admitted after gastrojejunostomy, had some recurrent vomiting and abdomen and pelvis CAT scan showed distended gallbladder. Otherwise, chronic elevation of the right hemidiaphragm was also noted. No evidence of any bowel obstruction was noted. No chest pain. No palpitations. No fever. PHYSICAL EXAMINATION: Alert and oriented x3. Pulse 97, blood pressure 133/87, respiration 16, temperature 98.4, pulse ox 94% on room air. NECK: No jugular venous distention. No lymph node enlargement. CARDIOVASCULAR: S1, S2, muffled. No S3, no S4, RESPIRATORY: Diminished breath sounds at the bases. A few scattered rhonchi. ABDOMEN: Soft, status post surgery. LEGS: No edema, no swelling. NERVOUS SYSTEM: No focal deficits. LABS: Hemoglobin 7.7. Otherwise, sodium 135, potassium 3.8. ASSESSMENT: 1. Acute gastric dilatation and gastric outlet obstruction status post gastrojejunostomy. 2. Dilated gallbladder. 3. Elevated LFTs. 4. Continued vomiting. 5. Possible atelectasis. 6. Increased AST, ALT with acute hepatitis. 7. Severe hypokalemia, improved. 8. Hyponatremia. 9. Was on TPN. 10.Urine culture showing Enterococcus species, VRE and possible colonization. 11.Elevated troponin of indeterminate significance. 12.History of CAD. 13.Hypertension. 14.Hyperlipidemia. 15.Hypophosphatemia. 16.Anemia, normocytic anemia of chronic disease. 17.FULL CODE. RECOMMENDATION AND DISCUSSION: Continue current management and symptomatic treatment. CT scan as noted. Closely follow with Surgery. Currently the patient appears to be tolerating full liquids. The most recent cultures are negative at this time. Repeat labs, especially the LFTs. Follow up with LFTs also recommended. Further recommendations to follow. MMODL / IJN: [id number] /
[2020-09-11] MEDS: HYDROcodone/APAP 5-325MG 1 EACH TAB PO PRN (21:02)
[2020-09-11] MEDS: LACTATED RINGERS 1,000 ML IV SCH (21:03)
[2020-09-12 08:38] VITALS: RESP 16
[2020-09-12] MEDS: PANTOPRAZOLE 40 MG/10 ML VIAL IVP SCH ×2 (08:40→19:38)
[2020-09-12] MEDS: OXYBUTYNIN CHLORIDE 5 MG TAB PO SCH ×2 (08:40→16:11)
[2020-09-12] MEDS: ERGOCALCIFEROL 1,250 MCG (50,000 IU) CAPSULE PO SCH (08:40)
[2020-09-12] MEDS: HEPARIN SODIUM,PORCINE/PF 5,000 UNIT/0.5 ML SYRINGE SQ SCH ×2 (08:40→19:38)
[2020-09-12] MEDS: FOLIC ACID 1 MG TAB PO SCH (08:40)
[2020-09-12] MEDS: amLODIPine 5 MG TAB PO SCH (08:41)
[2020-09-12] MEDS: SERTRALINE 50 MG TAB PO SCH (08:41)
--- NOTE | 2020-09-12 10:59 | P.PN ---
Progress Note - Text Progress Note Date: 09/12/20 Patient's a well. She's had several bowel movements. On exam her vital signs are stable. Abdomen soft. Patient will have her diet advanced to a pured diet.
[2020-09-12 12:28] LABS: Basophils # (A) 0.03 X 10*3/uL (0.00-0.10); Basophils % (A) 0.4 %; Eosinophils # (A) 0.07 X 10*3/uL (0.04-0.35); Eosinophils % (A) 0.9 %; HGB 8.1 g/dL (12.0-15.0); Lymphocytes # (A) 2.47 X 10*3/uL (0.90-5.00); MCH 27.9 pg (27.0-32.0); MCHC 31.2 g/dL (32.0-37.0); MCV 89.7 fL (80.0-97.0); Mean Platelet Volume 11.5 fL (9.5-12.2); Monocytes # (A) 0.91 X 10*3/uL (0.20-1.00); Monocytes % (A) 11.8 %; Neutrophils # (A) 4.12 X 10*3/uL (1.80-7.70); Neutrophils % (A) 53.5 %; Platelet Count 359 X 10*3/uL (140-440); WBC 7.71 X 10*3/uL (4.50-10.00)
[2020-09-12 12:47] LABS: Albumin 2.7 g/dL (3.80-4.90); Albumin/Globulin Ratio 1.17 (1.60-3.17); Anion Gap 6.9 mmol/L (4.00-12.00); Calcium 8.2 mg/dL (8.7-10.3); Carbon Dioxide 28.1 mmol/L (21.6-31.8); Globulin 2.3 g/dL (1.6-3.3); Non-African American GFR(CKD) 110.4 (60.0-200.0); Potassium 3.5 mmol/L (3.5-5.5); Total Bilirubin 0.7 mg/dL (0.3-1.2)
[2020-09-12] MEDS ORDERED: IPRATROPIUM-ALBUTEROL 3 ML NEB INHALATION PRN (17:03)
[2020-09-12] MEDS: HYDROcodone/APAP 5-325MG 1 EACH TAB PO PRN (19:38)
[2020-09-12] MEDS: LACTATED RINGERS 1,000 ML IV SCH (19:39)
--- NOTE | 2020-09-12 20:00 | PN ---
PROGRESS NOTE DATE OF SERVICE: 09/12/2020 This 75-year-old woman was admitted with acute gastrojejunostomy, is improving significantly. No chest pain. No palpitations. No fever. The abdominal and pelvis CT scan was noted. PHYSICAL EXAMINATION: Alert and oriented x3. The pulse is 85, blood pressure 124/70, respirations 16, temperature 99.1, pulse ox 94% on room air. HEENT: Conjunctivae normal. Oral mucosa moist. NECK: No jugular venous distention. No lymph node enlargement. CARDIOVASCULAR: S1, S2, muffled. No S3, no S4, RESPIRATORY: Diminished breath sounds at the bases. A few scattered rhonchi. ABDOMEN: Soft. LEGS: No edema, no swelling. NERVOUS SYSTEM: No focal deficits. LAB: Hemoglobin 8.1. Otherwise, AST is 86 and ALT is 485. Alkaline phosphatase is 490. ASSESSMENT: 1. Acute gastric dilatation, acute gastric outlet obstruction status post gastrojejunostomy. 2. Dilated gallbladder. 3. Elevated LFTs, possibly medication induced. 4. Continued vomiting, improved. 5. Possible atelectasis, improved. 6. Increased AST, ALT with acute hepatitis. 7. Severe hypokalemia, improved. 8. Hyponatremia. 9. Was on TPN. 10.Urine culture showing Enterococcus species, VRE and possible colonization. 11.Elevated troponin of indeterminate significance. 12.History of coronary artery disease. 13.Hypertension. 14.Hyperlipidemia. 15.Hypophosphatemia. 16.Anemia, normocytic anemia of chronic disease. 17.FULL CODE. RECOMMENDATIONS AND DISCUSSION: I recommend to continue current medications, symptomatic treatment. Otherwise, at this time I recommend portable chest x-ray in the morning. Once the patient is stable, the patient could be discharged home to the [facility]. Guarded prognosis. Further recommendations to follow. MMODL / IJN: [id number] /
[2020-09-12] MEDS: IPRATROPIUM-ALBUTEROL 3 ML NEB INHALATION SCH (21:27)
[2020-09-13] MEDS: OXYBUTYNIN CHLORIDE 5 MG TAB PO SCH ×3 (00:04→15:25)
[2020-09-13] MEDS: IPRATROPIUM-ALBUTEROL 3 ML NEB INHALATION SCH ×2 (07:24→10:59)
[2020-09-13] MEDS: amLODIPine 5 MG TAB PO SCH (09:16)
[2020-09-13] MEDS: SERTRALINE 50 MG TAB PO SCH (09:16)
[2020-09-13] MEDS: HEPARIN SODIUM,PORCINE/PF 5,000 UNIT/0.5 ML SYRINGE SQ SCH (09:16)
[2020-09-13] MEDS: FOLIC ACID 1 MG TAB PO SCH (09:16)
[2020-09-13] MEDS: PANTOPRAZOLE 40 MG/10 ML VIAL IVP SCH (09:17)
--- NOTE | 2020-09-13 10:07 | XR ---
EXAMINATION TYPE: XR chest 1V portable DATE OF EXAM: 09/13/2020 COMPARISON: 08/30/2020 HISTORY: Shortness of breath TECHNIQUE: Single frontal view of the chest is obtained. FINDINGS: Elevated right hemidiaphragm with basilar consolidation. Underlying COPD with diffuse oste openia and left-sided PICC line. No pneumothorax. Severe arthropathy left shoulder. IMPRESSION: 1. Right basilar infiltrate.
[2020-09-13] MEDS ORDERED: POTASSIUM CHLORIDE ER 20 MEQ TAB.ER PO STA (10:52)
--- NOTE | 2020-09-13 11:51 | P.PN ---
Subjective Progress Note Date: 09/13/20 CHIEF COMPLAINT: Abdominal distention HISTORY OF PRESENT ILLNESS: Surgical service is following regards to patient's gastric outlet obstruction. She is status post gastrojejunostomy on 09/01/2020. Patient denies any abdominal pain. Denies any nausea or vomiting. She is tolerating diet. She is having bowel movements and flatus. She's afebrile. WBC 7.7 when hemoglobin 8.1 potassium 3.5 and patient receiving supplement Patient seen and examined with Dr. nieves PHYSICAL EXAM: VITAL SIGNS: Reviewed. GENERAL: Well-developed in no acute distress. HEENT: No sclera icterus. Extraocular movements grossly intact. Moist buccal mucosa. Head is atraumatic, normocephalic. ABDOMEN: Soft. Nondistended. Patient does have serosanguineous drainage at the distal aspect of her incision. No erythema around the incision NEUROLOGIC: Alert and oriented. Cranial nerves II through XII grossly intact. ASSESSMENT: 1. Gastric outlet obstruction status post gastrojejunostomy PLAN: -Patient is stable from surgical standpoint for discharge -Continue Tylenol as needed for pain -Continue Pureed diet -GI prophylaxis Protonix and DVT prophylaxis subcu heparin Phys[employer] Technician note has been reviewed by physician. Signing provider agrees with the documented findings, assessment, and plan of care. Objective - Vital Signs Vital signs: Vital Signs Temp 98.3 F 09/13/20 07:58 Pulse 70 09/13/20 11:38 Resp 16 09/13/20 07:58 BP 126/74 09/13/20 07:58 Pulse Ox 97 09/13/20 07:58 Intake & Output 09/12/20 09/13/20 09/13/20 18:59 06:59 18:59 Intake Total 440 200 Output Total 801 402 1 Balance -361 -402 199 Weight 47 kg Intake: Oral 440 200 Output: Urine 800 400 Stool 1 2 1 Other: Voiding Method External Catheter External Catheter # Bowel Movements 1 - Labs CBC & Chem 7: 09/12/20 07:36 09/12/20 07:36 Labs: Abnormal Lab Results - Last 24 Hours (Table) 09/12/20 09/12/20 Range/Units 07:36 07:36 RBC 2.90 L (4.10-5.20) X 10*6/uL Hgb 8.1 L (12.0-15.0) g/dL Hct 26.0 L (37.2-46.3) % MCHC 31.2 L (32.0-37.0) g/dL RDW 16.0 H (11.5-14.5) % Immature Gran # 0.11 H (0.00-0.04) X 10*3/uL BUN 6.0 L (9.0-27.0) mg/dL Creatinine 0.3 L (0.6-1.5) mg/dL Calcium 8.2 L (8.7-10.3) mg/dL AST 86 H (13-35) U/L ALT 185 H (8-44) U/L Alkaline Phosphatase 490 H (41-126) U/L Total Protein 5.0 L (6.2-8.2) g/dL Albumin 2.70 L (3.80-4.90) g/dL Albumin/Globulin Ratio 1.17 L (1.60-3.17) g/dL Microbiology - Last 24 Hours (Table) 09/10/20 14:50 Gram Stain - Final Abdomen Wound Culture - Final
[2020-09-13 12:57] VITALS: BMI 20.2
--- NOTE | 2020-09-13 13:44 | P.DS ---
Providers Date of admission: 08/27/20 09:54 Expected date of discharge: 09/13/20 Attending physician: Genie Trammell Consults: 08/27/20 13:35 Consult Physician Urgent Consulting Provider: Cesar Medeiros Consult Reason/Comments: persistent vomiting/ recent EGD with GI Do you want consulting provider notified?: Yes 08/31/20 13:27 Consult Physician Routine Consulting Provider: Julius Hernandez Consult Reason/Comments: cardiac clearance Do you want consulting provider notified?: Yes Primary care physician: Radha Gardner [facility] Course: Final diagnosis Acute gastric dilatation, acute gastric outlet obstruction status post gastrojejunostomy Dilated gallbladder Elevated LFTs, possibly medication induced Continue vomiting, improved Possible right lower lobe pneumonia Increased AST, ALT with acute hepatitis Severe hypokalemia, improved Hyponatremia Was on TPN Urine culture showing enterococcus species, VRE and possible colonization Elevated troponin of indeterminate significance History of coronary disease Hypertension Hyperlipidemia Hypophosphatemia anemia, normocytic anemia of chronic disease Full code Discharge disposition Patient is being discharged in a stable condition with guarded prognosis to [facility] for continued PT/OT therapy. Patient will follow-up with Dr. Iglesias in the outpatient setting upon discharge. Patient will follow-up with primary care provider Dr. Garcia along with surgery Dr. Medeiros in one week in the outpatient setting. Patient will continue on oral antibiotics in the form of Ceftin for the next 4 days and then may discontinue. Recommend continuing with breathing inhalational treatments 3 times a day and as needed and also recommend repeat labs of CBC BMP and liver functions in the outpatient setting in a few days to monitor hemoglobin along with kidney and liver functions and electrolytes. Total time taken is greater than 35 minutes. Hospital course This is an 75-year-old female who was recently admitted with acute gastric outlet obstruction and underwent gastrojejunostomy with surgery and was being closely monitored. Patient being closely monitored by surgery and will follow- up outpatient in 1-2 weeks. Patient will also continue on oral Ceftin 500 mg twice daily for the next 4 days and recommend continued breathing treatments along with close monitoring of electrolytes and CBC in the outpatient setting. Patient continues to be weak and was evaluated by PT/OT therapy recommending subacute rehab for some strength and mobility. Patient is currently on dysphagia 1 pure diet and tolerating and recommend to continue and advance slowly as tolerated per surgery recommendations. Currently no reports of chest pain, shortness of breath, or palpitations. Patient is afebrile. No reports of nausea or vomiting and patient is tolerating diet. Patient will be going to [facility] [place] [facility]. On exam vital signs are stable. Cardio S1, S2 are muffled. Respiratory system shows diminished breath sounds at the bases with no wheezing or rhonchi noted. Abdomen is soft and nontender. Nervous system shows diffuse weakness. Please refer to medication reconciliation sheet for a list of medications. Patient Condition at Discharge: Stable Plan - Discharge Summary Discharge Rx Participant: No New Discharge Prescriptions: New Ipratropium-Albuterol Nebulize [Duoneb 0.5 mg-3 mg/3 ml Soln] 3 ml INHALATION RT-TID PRN ml PRN Reason: Shortness Of Breath Or Wheezing Ipratropium-Albuterol Nebulize [Duoneb 0.5 mg-3 mg/3 ml Soln] 3 ml INHALATION RT-TID ml Acetaminophen Tab [Tylenol] 650 mg PO Q6HR PRN tab PRN Reason: Fever And/ Or Pain Cefuroxime Axetil [Ceftin] 500 mg PO BID 4 Days #8 tab Continue Oxybutynin Chloride 5 mg PO TID Ergocalciferol (Vitamin D2) [Vitamin D2 (50,000 Iu)] 1,250 mcg PO GARZA Sertraline [Zoloft] 50 mg PO DAILY Fluticasone Nasal Holloway [Flonase Nasal Holloway] 1 - 2 spr EA NOSTRIL BID PRN PRN Reason: Allergy Symptoms Folic Acid 1 mg PO DAILY #30 tablet Multivitamins, Thera [Multivitamin (formulary)] 1 tab PO DAILY #30 tablet Thiamine [Vitamin B-1] 100 mg PO DAILY #30 tablet Ascorbic Acid [Vitamin C] 500 mg PO DAILY 30 Days #30 tablet Zinc 50 mg PO DAILY #30 tablet amLODIPine [Norvasc] 5 mg PO DAILY #30 tab Symbicort(Unknown Dose) 2 puff INHALATION RT-BID PRN PRN Reason: Shortness Of Breath Ondansetron Odt [Zofran ODT] 4 mg PO Q8HR PRN #10 tab PRN Reason: Nausea Pantoprazole Sodium [Protonix] 40 mg PO BID #0 Sennosides [Senokot] 8.6 mg PO DAILY PRN #30 tablet PRN Reason: Constipation Discontinued HYDROcodone/APAP 5-325MG [Seminary 5-325] 0.5 each PO Q6HR PRN #6 tab PRN Reason: Pain Aspirin 81 mg PO DAILY #30 chewable Sucralfate [Carafate] 1 gm PO ACHS #90 tablet Cefuroxime Axetil [Ceftin] 500 mg PO BID 4 Days #8 tab Discharge Medication List Oxybutynin Chloride 5 mg PO TID 02/26/17 [History] Ergocalciferol (Vitamin D2) [Vitamin D2 (50,000 Iu)] 1,250 mcg PO GARZA 07/21/20 [History] Sertraline [Zoloft] 50 mg PO DAILY 07/21/20 [History] amLODIPine [Norvasc] 5 mg PO DAILY #30 tab 07/28/20 [Rx] Fluticasone Nasal [place]ay [Flonase Nasal [place]] 1 - 2 spr EA NOSTRIL BID PRN 08/18/20 [History] Symbicort(Unknown Dose) 2 puff INHALATION RT-BID PRN 08/18/20 [History] Ondansetron Odt [Zofran ODT] 4 mg PO Q8HR PRN #10 tab 08/24/20 [Rx] Pantoprazole Sodium [Protonix] 40 mg PO BID #0 08/24/20 [Rx] Ascorbic Acid [Vitamin C] 500 mg PO DAILY 30 Days #30 tablet 08/26/20 [Rx] Folic Acid 1 mg PO DAILY #30 tablet 08/26/20 [Rx] Multivitamins, Thera [Multivitamin (formulary)] 1 tab PO DAILY #30 tablet 0 08/26/20 [Rx] Sennosides [Senokot] 8.6 mg PO DAILY PRN #30 tablet 08/26/20 [Rx] Thiamine [Vitamin B-1] 100 mg PO DAILY #30 tablet 08/26/20 [Rx] Zinc 50 mg PO DAILY #30 tablet 08/26/20 [Rx] Acetaminophen Tab [Tylenol] 650 mg PO Q6HR PRN tab 09/13/20 [Rx] Cefuroxime Axetil [Ceftin] 500 mg PO BID 4 Days #8 tab 09/13/20 [Rx] Ipratropium-Albuterol Nebulize [Duoneb 0.5 mg-3 mg/3 ml Soln] 3 ml INHALATION RT-TID ml 09/13/20 [Rx] Ipratropium-Albuterol Nebulize [Duoneb 0.5 mg-3 mg/3 ml Soln] 3 ml INHALATION RT-TID PRN ml 09/13/20 [Rx] Follow up Appointment(s)/Referral(s): Kendra Garcia MD [Primary Care Provider] - 1-2 days Cesar Medeiros MD [STAFF PHYSICIAN] - 1 Week Ambulatory/Diagnostic Orders: Complete Blood Count w/diff [LAB.AMB] Time Frame: 3 Days, Location: None Selected Activity/Diet/Wound Care/Special Instructions: No lifting over 10 pounds You may shower. No soaking or tub baths for 2 weeks Patient is going to [facility] [place] activity as tolerated Continue with antibiotics for 4 days and then may discontinue Continue with breathing inhalational treatments Repeat labs in 2-3 days to monitor CBC, BMP, liver functions Continue with dysphasia 1 pured diet and advance slowly as tolerated once cleared by surgery, also with ensure compact 3 times a day with meals Follow-up with surgery outpatient in one week Follow-up primary care provider outpatient Continue with PT/OT therapy [facility] - Discharge Disposition: TRANSFER TO SNF/F
[2020-09-13 15:17] VITALS: BP 112/70; PULSE 104; TEMP 99.1
[2020-09-13] MEDS: ACETAMINOPHEN TAB 325 MG TAB PO PRN (15:27)
== END 2020-09-13 17:15 | DRG 327 ==
LOC: EC 07:25 → 3SCARD 09:54 → 6NMEDSUR 08-29 19:47
PROVIDERS: ADMIT Hospitalist; ATTEND Hospitalist
PROC: 0D9670Z Drainage of Stomach with Drainage Device, Via Natural or Artificial Opening (ICD-10-PCS; 2020-08-27)
PROC: 0D160ZA Bypass Stomach to Jejunum, Open Approach (ICD-10-PCS; principal; 2020-09-01 12:15)
PROC: 02HV33Z Insertion of Infusion Device into Superior Vena Cava, Percutaneous Approach (ICD-10-PCS; 2020-09-03)
PROC: 3E0436Z Introduction of Nutritional Substance into Central Vein, Percutaneous Approach (ICD-10-PCS; 2020-09-03)
DX: K31.1 Adult hypertrophic pyloric stenosis (principal); N39.0 Urinary tract infection, site not specified; E87.1 Hypo-osmolality and hyponatremia; B17.9 Acute viral hepatitis, unspecified; Z16.21 Resistance to vancomycin; J98.11 Atelectasis; E44.1 Mild protein-calorie malnutrition; I11.0 Hypertensive heart disease with heart failure; I50.9 Heart failure, unspecified; D63.8 Anemia in other chronic diseases classified elsewhere; Z20.822 Contact with and (suspected) exposure to COVID-19; B95.2 Enterococcus as the cause of diseases classified elsewhere; E83.39 Other disorders of phosphorus metabolism; K29.70 Gastritis, unspecified, without bleeding; K82.8 Other specified diseases of gallbladder; K21.9 Gastro-esophageal reflux disease without esophagitis; J45.909 Unspecified asthma, uncomplicated; E78.5 Hyperlipidemia, unspecified; I25.10 Atherosclerotic heart disease of native coronary artery without angina pectoris; E87.6 Hypokalemia; Z86.16 Personal history of COVID-19; R09.02 Hypoxemia; M19.90 Unspecified osteoarthritis, unspecified site; K44.9 Diaphragmatic hernia without obstruction or gangrene; N39.3 Stress incontinence (female) (male); R26.9 Unspecified abnormalities of gait and mobility; R77.8 Other specified abnormalities of plasma proteins; Z68.20 Body mass index [BMI] 20.0-20.9, adult; Z99.81 Dependence on supplemental oxygen; Z79.82 Long term (current) use of aspirin; Z79.51 Long term (current) use of inhaled steroids; Z79.899 Other long term (current) drug therapy; Z96.81 Presence of artificial skin; Z95.5 Presence of coronary angioplasty implant and graft; Z87.01 Personal history of pneumonia (recurrent); Z87.11 Personal history of peptic ulcer disease; Z86.19 Personal history of other infectious and parasitic diseases; Z87.440 Personal history of urinary (tract) infections; Z88.0 Allergy status to penicillin; Z88.8 Allergy status to other drugs, medicaments and biological substances; Z91.048 Other nonmedicinal substance allergy status; Z82.49 Family history of ischemic heart disease and other diseases of the circulatory system; Z83.2 Family history of diseases of the blood and blood-forming organs and certain disorders involving the immune mechanism
CPT/HCPCS: 36415; 36573; 71045; 71046; 74022; 74176; 74177; 74240; 78582; 80048; 80053; 81001; 81003; 82040; 82150; 82330; 83690; 83735; 84100; 84132; 84478; 84484; 85025; 85027; 85610; 85730; 87070; 87075; 87077; 87086; 87186; 87205; 87635; 93005; 94640; 94760; 96374; 99285

== ENCOUNTER 2020-09-17 08:46 | Inpatient (IN) | payer MEDICARE, OTHER ==
[2020-09-17] MEDS ORDERED: PANTOPRAZOLE 40 MG/10 ML VIAL IVP STA (09:13)
[2020-09-17] MEDS ORDERED: ONDANSETRON 4 MG/2 ML VIAL IVP STA (09:24)
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
[2020-09-17 09:47] LABS: Albumin 3.7 g/dL (3.5-5.0); Calcium 10.1 mg/dL (8.4-10.2); Potassium 3.7 mmol/L (3.5-5.1); Total Bilirubin 0.7 mg/dL (0.2-1.3); Total Protein 6.6 g/dL (6.3-8.2)
[2020-09-17 09:55] LABS: Prothrombin Time 11.1 sec (9.0-12.0)
[2020-09-17 10:01] LABS: Anisocytosis Slight; Basophils % (A) 0 %; Eosinophils % (A) 0 %; HCT 36.6 % (34.0-46.0); Hypochromasia Slight; Lymphocytes # (A) 1.2 k/uL (1.0-4.8); Lymphocytes % (A) 7 %; MCH 27.8 pg (25.0-35.0); MCHC 32.1 g/dL (31.0-37.0); MCV 86.7 fL (80.0-100.0); Monocytes % (A) 6 %; Neutrophils # (A) 14.2 k/uL (1.3-7.7); Neutrophils % (A) 85 %; Platelet Count 655 k/uL (150-450); RBC 4.23 m/uL (3.80-5.40); RDW 16.7 % (11.5-15.5); WBC 16.7 k/uL (3.8-10.6)
[2020-09-17 10:02] LABS: HGB 11.8 gm/dL (11.4-16.0)
[2020-09-17] MEDS ORDERED: SODIUM CHLORIDE 0.9% 2,000 ML IV ONE (10:02)
[2020-09-17 10:10] LABS: Partial Thromboplastin Time 20.7 sec (22.0-30.0)
[2020-09-17] MEDS ORDERED: METOCLOPRAMIDE 5 MG/ML 2 ML VIAL IVP STA (10:12)
[2020-09-17] MEDS ORDERED: diphenhydrAMINE 50 MG/ML 1 ML VIAL IVP STA (10:12)
[2020-09-17] MEDS ORDERED: MORPHINE SULFATE 2 MG/ML SYRINGE IVP ONE (11:07)
--- NOTE | 2020-09-17 11:19 | XR ---
EXAMINATION TYPE: XR chest 2V DATE OF EXAM: 09/17/2020 COMPARISON: 09/13/2020 and 09/10/2020 HISTORY: 75-year-old female with tachycardia TECHNIQUE: AP and lateral views FINDINGS: Crescents of air below the hemidiaphragms may relate to air within the stomach and a prominent interp osed bowel loop below the right hemidiaphragm. There is some low lung volumes. No consolidation or pl eural effusion. No aide consolidation or pleural effusion seen. A band of atelectasis at the posteri or base on the lateral view. Heart normal size. Skin sav along the anterior abdominal wall presen t back on the 6421 exam. IMPRESSION: Presence of air below the hemidiaphragms probably air within the stomach and interposed bowel. Howeve r, we are unable to entirely exclude mild free intraperitoneal air. Depending on clinical suspicion, either acute abdominal series with the addition of a decubitus view or CT should be considered. Mild hypoventilatory changes. No definite acute cardiopulmonary process.
[2020-09-17] MEDS ORDERED: metroNIDAZOLE-NS PMX 500 MG in SALINE 1 100ML.BAG IVPB STA (11:40)
[2020-09-17] MEDS ORDERED: IOPAMIDOL CONTRAST (ORAL USE) VIAL PO PRN (11:41)
[2020-09-17] MEDS ORDERED: NALOXONE 0.4 MG/ML 1 ML VIAL IV PRN ×2 (11:43→11:45)
--- NOTE | 2020-09-17 12:28 | CT ---
EXAMINATION TYPE: CT abdomen pelvis w con DATE OF EXAM: 09/17/2020 COMPARISON: 09/10/2020 INDICATION: Generalized abdominal pain and discolored emesis. DLP: 727.9 mGycm, Automated exposure control for dose reduction was used. CONTRAST: 80 mL of Isovue 300. Study performed without Oral Contrast TECHNIQUE: Axial images were obtained from above the diaphragm to the pubic rami in the axial plane a t 5 mm thick sections. Reconstructed images are reviewed on the computer in the coronal plane. FINDINGS: Limited CT sections are obtained the lung bases. The lung bases are clear. CT ABDOMEN: Distal esophagus is slightly prominent. Wall thickening is not identified. Liver: Normal Spleen: Normal Pancreas: Normal Adrenal glands: The adrenal glands are normal. Gallbladder: Not identified. Kidneys: No masses are evident. No hydronephrosis is present. Several small hypodensities are withi n the left kidney compatible with small cysts. Delayed images were obtained through the kidneys, whi ch remain unremarkable. Aorta: Vascular calcification is within the aorta. Inferior vena cava: Normal. CT PELVIS: No free air is evident within the abdomen or pelvis. Diverticular changes are through the sigmoid colon. There is marked prominence of proximal small gardenia l loops. This appears to transition in the right upper quadrant, series 201 image 32 volvulus may be present at this level this is proximal to the anastomosis with the stomach. There are loops of bowel which are incompletely distended or lack oral contrast limiting their evalua tion. Appendix: Not identified. Urinary bladder: Distended. Genitourinary structures: Uterus contains calcified granuloma. Adnexal region is normal. Osseous structures: No suspicious lytic or sclerotic lesions. Degenerative changes at the left hip. IMPRESSIONS: 1. There is a swirled pattern with a transition in the right upper quadrant small bowel compatible w ith a volvulus. Report was called emergency room [facility] by Dr. Maldonado by telephone at time of interpretation. 2. Diverticulosis without acute diverticulitis
[2020-09-17] MEDS ORDERED: SENNOSIDES 8.6 MG TAB PO PRN (12:54)
[2020-09-17] MEDS ORDERED: ACETAMINOPHEN TAB 325 MG TAB PO PRN (12:54)
[2020-09-17] MEDS ORDERED: FLUTICASONE 50MCG/SPRAY NASAL 16GM EA NOSTRIL PRN (12:54)
[2020-09-17] MEDS ORDERED: IPRATROPIUM-ALBUTEROL 3 ML NEB INHALATION PRN (12:54)
[2020-09-17] MEDS: SODIUM CHLORIDE 0.9% 1,000 ML IV SCH ×2 (13:28→20:26)
[2020-09-17] MEDS: OXYBUTYNIN CHLORIDE 5 MG TAB PO SCH ×2 (13:35→20:19)
[2020-09-17] MEDS: IPRATROPIUM-ALBUTEROL 3 ML NEB INHALATION SCH ×2 (13:46→21:27)
--- NOTE | 2020-09-17 15:17 | P.GSCN ---
<Lauren He - Last Filed: 09/17/20 14:51> History of Present Illness Consult date: 09/17/20 History of present illness: CHIEF COMPLAINT: Vomiting HISTORY OF PRESENT ILLNESS: This is a 75-year-old female who was discharged on 09/13/2020 from the hospital and during that hospitalization patient had a gastrojejunostomy for gastric outlet obstruction on 09/01/[address] Medeiros. Patient was discharged to a assisted. She had been tolerating pured diet and had been having bowel movements. Patient reports over the last 3 days she has been vomiting and it is been very dark. There were concerns of coffee ground emesis. In the ER she did have evidence of coffee ground emesis in her bedside bucket. She reports she is not had a bowel movement in about 3 days. She is passing gas. She only has abdominal pain with vomiting. She feels she may have had a low-grade fever. Patient had a chest x-ray with concerns of possible mild free intraperitoneal air. A computed tomography scan of the abdomen and pelvis with oral contrast was ordered that showed swirled pattern with a transition in the right upper quadrant small bowel compatible with a volvulus. Also noted diverticulosis without acute diverticulitis. Patient will be getting NG tube placed in the emergency room. She was started on IV Protonix. Patient also had an EGD on 08/25/2020 that did show mild gastritis and LA grade B distal esophagitis. Patient does have history of coronary artery disease with stent. Surgical service was consulted regarding small bowel volvulus. Patient did have elevated white count and was tachycardic on admission. PAST MEDICAL HISTORY: See list. PAST SURGICAL HISTORY: See list. MEDICATIONS: See list. ALLERGIES: See list. SOCIAL HISTORY: No illicit drug use. REVIEW OF SYSTEMS: CONSTITUTIONAL: Denies fever or chills. HEENT: Denies blurred vision, vision changes, or eye pain. Denies hemoptysis CARDIOVASCULAR: Denies chest pain or pressure. RESPIRATORY: No shortness of breath. GASTROINTESTINAL: See HPI for pertinent findings HEMATOLOGIC: Denies bleeding disorders. GENITOURINARY: Denies any blood in urine or increased urinary frequency. SKIN: Denies pruitis. Denies rash. PHYSICAL EXAM: VITAL SIGNS: Reviewed GENERAL: Well-developed in no acute distress. HEENT: No sclera icterus. Extraocular movements grossly intact. Moist buccal mucosa. Head is atraumatic, normocephalic. No nasal drainage. ABDOMEN: Soft. Nondistended. Nontender. Incision site with sav clean dry and intact NEUROLOGIC: Alert and oriented. Cranial nerves II through XII grossly intact. LABORATORY DATA: WBC 16.7 hemoglobin 11.8 platelets 655 Sodium 141 potassium 3.7 creatinine 1.01 lactic acid 3.7 AST 40 ALT 53 alk phos 352 troponin elevated 0.102 Gastric occult blood positive IMAGING: Chest x-ray presence of air below the hemidiaphragms probably air within the st omach and interposed bowel. However we are unable to entirely exclude mild free intraperitoneal air. computed tomography scan of the abdomen and pelvis with oral contrast was ordered that showed swirled pattern with a transition in the right upper quadrant small bowel compatible with a volvulus. Also noted diverticulosis without acute diverticulitis. ASSESSMENT: 1. Small bowel volvulus 2. Vomiting with coffee-ground emesis. Gastric occult blood positive. Hemoglobin stable at 11.8 3. Status post gastrojejunostomy on 09/01/2020 for gastric outlet obstruction 4. Presence of air below the hemidiaphragms probably air within the stomach and interposed bowel noted on chest x-ray. No evidence of free air on computed tomography scan of abdomen and pelvis PLAN: -NG tube for decompression -Keep patient nothing by mouth -Continue IV Protonix -Continue IV fluid -Continue to monitor hemoglobin -Further recommendations forthcoming per surgeon Thank you for this consultation Physician Anode Builder note has been reviewed by physician. Signing provider agrees with the documented findings, assessment, and plan of care. Past Medical History Past Medical History: Asthma, Coronary Artery Disease (CAD), Chest Pain / Angina, Heart Failure, GERD/Reflux, Hyperlipidemia, Hypertension, Osteoarthritis (OA), Pneumonia, Respiratory Disorder Additional Past Medical History / Comment(s): Pt recently admitted to [facility] on 08/20/20 with chest pain/negative stress test, UTI with sepsis, hypomagnesemia, gait dysfunction, mild protein calorie malnutrition. Other hx: 07/2020 Covid pneumonia and has been on home oxygen since, bronchitis, hiatal hernia, stress incontinence, arthritis "all over", pt thinks possibly told she had RA, gas tritis, UTIs, hypokalemia, bradycardia, sinus problems, skni grafts d/t wilburn. History of Any Multi-Drug Resistant Organisms: VRE Year Discovered:: 08/27/20 MDRO Source:: Urine Past Surgical History: Back Surgery, Heart Catheterization, Heart Catheterization With Stent Additional Past Surgical History / Comment(s): PCI with stents 2006, lower back surgery, skin grafts, EGD, colonoscopy, D&C/hysteroscopy. Past Anesthesia/Blood Transfusion Reactions: No Reported Reaction Additional Past Anesthesia/Blood Transfusion Reaction / Comm: Pt unsure if she has recieved blood ever. Date of Last Stent Placement:: 2006 Past Psychological History: No Psychological Hx Reported Smoking Status: Never smoker - Past Family History Father Family Medical History: No Reported History Additional Family Medical History / Comment(s): Pt states father in an accident years ago. Mother Family Medical History: Blood Disorder, Congestive Heart Failure (CHF) Additional Family Medical History / Comment(s): Mother around age 83yrs Medications and Allergies Home Medications Medication Instructions Recorded Confirmed Type Oxybutynin Chloride 5 mg PO TID@0900,1300,2100 02/26/17 09/17/20 History Ergocalciferol (Vitamin D2) 1,250 mcg PO GARZA 07/21/20 09/17/20 History [Vitamin D2 (50,000 Iu)] Sertraline [Zoloft] 50 mg PO DAILY 07/21/20 09/17/20 History amLODIPine [Norvasc] 5 mg PO DAILY #30 tab 07/28/20 09/17/20 Rx Fluticasone Nasal [place] [Flonase 1 - 2 spr EA NOSTRIL BID PRN 08/18/20 09/17/20 History Nasal [place]] Ondansetron Odt [Zofran ODT] 4 mg PO Q8HR PRN #10 tab 08/24/20 09/17/20 Rx Ascorbic Acid [Vitamin C] 500 mg PO DAILY 30 Days #30 tablet 08/26/20 09/17/20 Rx Folic Acid 1 mg PO DAILY #30 tablet 08/26/20 09/17/20 Rx Multivitamins, Thera [Multivitamin 1 tab PO DAILY #30 tablet 08/26/20 09/17/20 Rx (formulary)] Sennosides [Senokot] 8.6 mg PO DAILY PRN #30 tablet 08/26/20 09/17/20 Rx Thiamine [Vitamin B-1] 100 mg PO DAILY #30 tablet 08/26/20 09/17/20 Rx Zinc 50 mg PO DAILY #30 tablet 08/26/20 09/17/20 Rx Acetaminophen Tab [Tylenol] 650 mg PO Q6HR PRN tab 09/13/20 09/17/20 Rx Cefuroxime Axetil [Ceftin] 500 mg PO BID 4 Days #8 tab 09/13/20 09/17/20 Rx Ipratropium-Albuterol Nebulize 3 ml INHALATION RT-TID ml 09/13/20 09/17/20 Rx [Duoneb 0.5 mg-3 mg/3 ml Soln] Ipratropium-Albuterol Nebulize 3 ml INHALATION RT-TID PRN ml 09/13/20 09/17/20 Rx [Duoneb 0.5 mg-3 mg/3 ml Soln] Budesonide/Formoterol Fumarate 2 puff INHALATION RT-BID 09/17/20 09/17/20 History [Symbicort 80-4.5 Mcg Inhaler] Pantoprazole Sodium [Protonix] 40 mg PO BID@0900,1700 09/17/20 09/17/20 History Allergies Allergy/AdvReac Type Severity Reaction Status Date / Time adhesive Allergy Rash/Hives Verified 09/17/20 10:04 Penicillins Allergy Swelling Verified 09/17/20 10:04 atorvastatin AdvReac Abdominal Verified 09/17/20 10:04 Pain Surgical - Exam Vital Signs Temp Pulse Resp BP Pulse Ox 98.2 F 134 H 24 100/70 97 09/17/20 08:47 09/17/20 08:47 09/17/20 08:47 09/17/20 08:47 09/17/20 08:47 Results - Labs 09/17/20 09:17 09/17/20 09:17 Abnormal Lab Results - Last 24 Hours (Table) 09/17/20 09/17/20 09/17/20 Range/Units 09:17 09:17 09:17 WBC 16.7 H (3.8-10.6) k/uL RDW 16.7 H (11.5-15.5) % Plt Count 655 H (150-450) k/uL Neutrophils # 14.2 H (1.3-7.7) k/uL APTT 20.7 L (22.0-30.0) sec Chloride 83 L (98-107) mmol/L Carbon Dioxide 37 H (22-30) mmol/L BUN 27 H (7-17) mg/dL Glucose 166 H (74-99) mg/dL Plasma Lactic Acid Nathanael (0.7-2.0) mmol/L AST 40 H (14-36) U/L ALT 53 H (4-34) U/L Alkaline Phosphatase 352 H (38-126) U/L Troponin I (0.000-0.034) ng/mL Lipase 13 L (23-300) U/L 09/17/20 09/17/20 Range/Units 09:17 09:17 WBC (3.8-10.6) k/uL RDW (11.5-15.5) % Plt Count (150-450) k/uL Neutrophils # (1.3-7.7) k/uL APTT (22.0-30.0) sec Chloride (98-107) mmol/L Carbon Dioxide (22-30) mmol/L BUN (7-17) mg/dL Glucose (74-99) mg/dL Plasma Lactic Acid Nathanael 3.7 H* (0.7-2.0) mmol/L AST (14-36) U/L ALT (4-34) U/L Alkaline Phosphatase (38-126) U/L Troponin I 0.102 H* (0.000-0.034) ng/mL Lipase (23-300) U/L Diabetes panel 09/17/20 Range/Units 09:17 Sodium 141 (137-145) mmol/L Potassium 3.7 (3.5-5.1) mmol/L Chloride 83 L (98-107) mmol/L Carbon Dioxide 37 H (22-30) mmol/L BUN 27 H (7-17) mg/dL Creatinine 1.01 (0.52-1.04) mg/dL Glucose 166 H (74-99) mg/dL Calcium 10.1 (8.4-10.2) mg/dL AST 40 H (14-36) U/L ALT 53 H (4-34) U/L Alkaline Phosphatase 352 H (38-126) U/L Total Protein 6.6 (6.3-8.2) g/dL Albumin 3.7 (3.5-5.0) g/dL Calcium panel 09/17/20 Range/Units 09:17 Calcium 10.1 (8.4-10.2) mg/dL Albumin 3.7 (3.5-5.0) g/dL Pituitary panel 09/17/20 Range/Units 09:17 Sodium 141 (137-145) mmol/L Potassium 3.7 (3.5-5.1) mmol/L Chloride 83 L (98-107) mmol/L Carbon Dioxide 37 H (22-30) mmol/L BUN 27 H (7-17) mg/dL Creatinine 1.01 (0.52-1.04) mg/dL Glucose 166 H (74-99) mg/dL Calcium 10.1 (8.4-10.2) mg/dL Adrenal panel 09/17/20 Range/Units 09:17 Sodium 141 (137-145) mmol/L Potassium 3.7 (3.5-5.1) mmol/L Chloride 83 L (98-107) mmol/L Carbon Dioxide 37 H (22-30) mmol/L BUN 27 H (7-17) mg/dL Creatinine 1.01 (0.52-1.04) mg/dL Glucose 166 H (74-99) mg/dL Calcium 10.1 (8.4-10.2) mg/dL Total Bilirubin 0.7 (0.2-1.3) mg/dL AST 40 H (14-36) U/L ALT 53 H (4-34) U/L Alkaline Phosphatase 352 H (38-126) U/L Total Protein 6.6 (6.3-8.2) g/dL Albumin 3.7 (3.5-5.0) g/dL <Alber Chi - Last Filed: 09/19/20 12:40> History of Present Illness History of present illness: As above. See progress note dated 09/18. ER staff contacted both myself and Dr. Medeiros regarding this patient on 09/17. Surgical - Exam Vital Signs Temp Pulse Resp BP Pulse Ox 98.2 F 134 H 24 100/70 97 09/17/20 08:47 09/17/20 08:47 09/17/20 08:47 09/17/20 08:47 09/17/20 08:47 Results - Labs 09/19/20 08:35 09/19/20 08:35 Abnormal Lab Results - Last 24 Hours (Table) 09/17/20 09/19/20 09/19/20 Range/Units 09:17 08:35 08:35 RBC 2.21 L (3.80-5.40) m/uL Hgb 6.3 L* D (11.4-16.0) gm/dL Hct 20.2 L (34.0-46.0) % RDW 16.3 H (11.5-15.5) % Potassium 3.1 L (3.5-5.1) mmol/L BUN 21 H (7-17) mg/dL Glucose 64 L (74-99) mg/dL Calcium 8.2 L (8.4-10.2) mg/dL Crossmatch See Detail Microbiology - Last 24 Hours (Table) 09/17/20 13:25 Blood Culture - Preliminary Blood No Growth after 24 hours 09/17/20 13:00 Blood Culture - Preliminary Blood No Growth after 24 hours Diabetes panel 09/19/20 Range/Units 08:35 Sodium 140 (137-145) mmol/L Potassium 3.1 L (3.5-5.1) mmol/L Chloride 102 (98-107) mmol/L Carbon Dioxide 28 (22-30) mmol/L BUN 21 H (7-17) mg/dL Creatinine 0.67 (0.52-1.04) mg/dL Glucose 64 L (74-99) mg/dL Calcium 8.2 L (8.4-10.2) mg/dL Calcium panel 09/19/20 Range/Units 08:35 Calcium 8.2 L (8.4-10.2) mg/dL Pituitary panel 09/19/20 Range/Units 08:35 Sodium 140 (137-145) mmol/L Potassium 3.1 L (3.5-5.1) mmol/L Chloride 102 (98-107) mmol/L Carbon Dioxide 28 (22-30) mmol/L BUN 21 H (7-17) mg/dL Creatinine 0.67 (0.52-1.04) mg/dL Glucose 64 L (74-99) mg/dL Calcium 8.2 L (8.4-10.2) mg/dL Adrenal panel 09/19/20 Range/Units 08:35 Sodium 140 (137-145) mmol/L Potassium 3.1 L (3.5-5.1) mmol/L Chloride 102 (98-107) mmol/L Carbon Dioxide 28 (22-30) mmol/L BUN 21 H (7-17) mg/dL Creatinine 0.67 (0.52-1.04) mg/dL Glucose 64 L (74-99) mg/dL Calcium 8.2 L (8.4-10.2) mg/dL Assessment and Plan (1) Gastric outlet obstruction Current Visit: No Status: Acute Code(s): K31.1 - ADULT HYPERTROPHIC PYLORIC STENOSIS SNOMED Code(s): 362915546
[2020-09-17 16:31] LABS: Anisocytosis Slight; Basophils % (A) 0 %; Eosinophils % (A) 0 %; HCT 30.6 % (34.0-46.0); Hypochromasia Marked; Lymphocytes # (A) 1.2 k/uL (1.0-4.8); Lymphocytes % (A) 7 %; MCH 27.6 pg (25.0-35.0); MCHC 30.5 g/dL (31.0-37.0); MCV 90.4 fL (80.0-100.0); Mean Platelet Volume 9.3; Monocytes # (A) 0.8 k/uL (0-1.0); Monocytes % (A) 4 %; Neutrophils # (A) 14.9 k/uL (1.3-7.7); Neutrophils % (A) 87 %; Platelet Count 496 k/uL (150-450); RBC 3.38 m/uL (3.80-5.40); RDW 16.7 % (11.5-15.5); WBC 17.1 k/uL (3.8-10.6)
--- NOTE | 2020-09-17 16:47 | XR ---
EXAMINATION TYPE: XR abdomen 2V DATE OF EXAM: 09/17/2020 CLINICAL DATA: 75 year-old female check NG tube placement, [facility] COMPARISON: CT same day FINDINGS: NG tube sidehole is above the GE junction. Advanced 7 cm so that it enters the stomach. Dilated small bowel loops below the right hemidiaphragm measuring up to 3.8 cm. Positive colonic air. Oral contras t material being excreted from the kidneys. Some retained oral contrast outlining left-sided colonic diverticula. Suspect a calcified fibroid measuring 2.7 cm. Anterior midline skin sav. Some surgic al screws within the lower lumbar spine. Osteopenia. End-stage degenerative change left hip. Some air below the right hemidiaphragm corresponds to air within multiple dilated small bowel loops in correl ating with CT today. IMPRESSION: 1. NG tube slightly short. Advance by 7 cm so that the side hole enters the stomach. 2. 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
[2020-09-17 16:53] LABS: HGB 9.3 gm/dL (11.4-16.0)
--- NOTE | 2020-09-17 17:09 | XR ---
EXAMINATION TYPE: XR chest 1V portable DATE OF EXAM: 09/17/2020 COMPARISON: Today HISTORY: Check tube placement TECHNIQUE: Single view FINDINGS: There is nasogastric tube with the tip overlying the gastric fundus. Tip is probably in the stomach. There is elevated right diaphragm with gas-distended loops of bowel in the upper abdomen. T here is no heart failure. There is some atelectasis right lung base. There are chest leads. IMPRESSION: Dilated bowel unchanged. NG tube appears to be in the stomach. I see no definite sign of free air in the abdomen.
[2020-09-17 18:13] LABS: Appearance,Urine Clear (Clear); Bilirubin,Urine Negative (Negative); Blood,Urine Negative (Negative); Color,Urine Yellow; Glucose,Urine (UA) Negative (Negative); Ketones,Urine 1+ (Negative); Leukocyte Esterase,Urine Negative (Negative); Nitrite,Urine Negative (Negative); PH, Urine 6.5 (5.0-8.0); Protein,Urine Trace (Negative); Specific Gravity,Urine 1.031 (1.001-1.035); Urobilinogen,Urine <2.0 mg/dL (<2.0)
[2020-09-17 20:00] LABS: Glucose,Whole Blood 125 mg/dL (75-99)
[2020-09-17] MEDS: PANTOPRAZOLE 40 MG/10 ML VIAL IV SCH (20:25)
[2020-09-17] MEDS: SYMBICORT 80-4.5 MCG INHALER INHALATION SCH (21:27)
--- NOTE | 2020-09-18 00:47 | P.HPIM ---
History of Present Illness H&P Date: 09/17/20 Chief Complaint: Nausea and vomiting Patient is a 75-year-old female with known history of hypertension, hyperlipidemia, osteoarthritis, coronary artery disease with history of stent placement, gait dysfunction and history of Covid pneumonia and has been on oxygen since then, recent history of gastro jejunostomy for gastric outlet obstruction on 09/01/2020 and was discharged to extended care facility on 09/13/2020. She has been doing well until 3 days ago. Started vomiting dark-colored/coffee-ground liquids. Unable to tolerate any oral diet. No bowel meds for the past 3 days. Mild abdominal pain and low-grade fever as per patient. On admission blood pressure was 100/70 pulse 134 and respiration 24 and pulse ox 97% on room air. Chest x-ray showed presence of 8 below the hemidiaphragm probably air within the stomach and interposed bowel. However we are unable to entirely exclude mild free intraperitoneal air.. CT of the abdomen pelvis was done which showed there is swirl pattern within a transition in the right upper quadrant small bowel compatible with the volvulus. Diverticulosis without acute diverticulitis. Laboratory data showed WBC 16.7, hemoglobin 11.8 and platelets 655 sodium 141 potassium 3.7 chloride 83 bicarb is 37 BUN 27 creatinine 1.01 lactic acid 3.7 AST 40 ALT 33 alk phos 352 and troponin 0 0.102 gastric occult blood is positive. COVID-19 PCR not detected.. Patient had EGD 08/25/2020 showed mild gastritis and LA grade B distal esophagitis. Review of Systems Constitutional: Patient denies any fever or chills . No generalized weakness or weight loss. Abdomen: Patient does have nausea vomiting and upper abdominal discomfort. Cardiovascular: Patient denies any chest pain or short of breath no palpitations . Respiratory: patient denied any cough or sputum production. No shortness of breath Neurologic: Patient denied any numbness or tingling headache. Musculoskeletal: Patient denies any complaints of joint swelling or deformity. Skin: Negative Psychiatric: Negative Endocrine: No heat or cold intolerance. No recent weight gain. Genitourinary: No dysuria or hematuria. All other 14 point ROS negative except the above Past Medical History Past Medical History: Asthma, Coronary Artery Disease (CAD), Chest Pain / Angina, Heart Failure, GERD/Reflux, Hyperlipidemia, Hypertension, Osteoarthritis (OA), Pneumonia, Respiratory Disorder Additional Past Medical History / Comment(s): Pt recently admitted to [facility] on 08/20/20 with chest pain/negative stress test, UTI with sepsis, hypomagnesemia, gait dysfunction, mild protein calorie malnutrition. Other hx: 07/2020 Covid pneumonia and has been on home oxygen since, bronchitis, hiatal hernia, stress incontinence, arthritis "all over", pt thinks possibly told she had RA, gastritis, UTIs, hypokalemia, bradycardia, sinus problems, skni grafts d/t wilburn. History of Any Multi-Drug Resistant Organisms: VRE Date of last positivie culture/infection: 08/27/20 MDRO Source:: Urine Past Surgical History: Back Surgery, Heart Catheterization, Heart Catheterization With Stent Additional Past Surgical History / Comment(s): PCI with stents 2006, lower back surgery, skin grafts, EGD, colonoscopy, D&C/hysteroscopy. Past Anesthesia/Blood Transfusion Reactions: No Reported Reaction Additional Past Anesthesia/Blood Transfusion Reaction / Comment(s): Pt unsure if she has recieved blood ever. Date of Last Stent Placement:: 2006 Past Psychological History: No Psychological Hx Reported Smoking Status: Never smoker - Past Family History Father Family Medical History: No Reported History Additional Family Medical History / Comment(s): Pt states father in an accident years ago. Mother Family Medical History: Blood Disorder, Congestive Heart Failure (CHF) Additional Family Medical History / Comment(s): Mother around age 83yrs Medications and Allergies Home Medications Medication Instructions Recorded Confirmed Type Oxybutynin Chloride 5 mg PO TID@0900,1300,2100 02/26/17 09/17/20 History Ergocalciferol (Vitamin D2) 1,250 mcg PO GARZA 07/21/20 09/17/20 History [Vitamin D2 (50,000 Iu)] Sertraline [Zoloft] 50 mg PO DAILY 07/21/20 09/17/20 History amLODIPine [Norvasc] 5 mg PO DAILY #30 tab 07/28/20 09/17/20 Rx Fluticasone Nasal [place] [Flonase 1 - 2 spr EA NOSTRIL BID PRN 08/18/20 09/17/20 History Nasal [place]] Ondansetron Odt [Zofran ODT] 4 mg PO Q8HR PRN #10 tab 08/24/20 09/17/20 Rx Ascorbic Acid [Vitamin C] 500 mg PO DAILY 30 Days #30 tablet 08/26/20 09/17/20 Rx Folic Acid 1 mg PO DAILY #30 tablet 08/26/20 09/17/20 Rx Multivitamins, Thera [Multivitamin 1 tab PO DAILY #30 tablet 08/26/20 09/17/20 Rx (formulary)] Sennosides [Senokot] 8.6 mg PO DAILY PRN #30 tablet 08/26/20 09/17/20 Rx Thiamine [Vitamin B-1] 100 mg PO DAILY #30 tablet 08/26/20 09/17/20 Rx Zinc 50 mg PO DAILY #30 tablet 08/26/20 09/17/20 Rx Acetaminophen Tab [Tylenol] 650 mg PO Q6HR PRN tab 09/13/20 09/17/20 Rx Cefuroxime Axetil [Ceftin] 500 mg PO BID 4 Days #8 tab 09/13/20 09/17/20 Rx Ipratropium-Albuterol Nebulize 3 ml INHALATION RT-TID ml 09/13/20 09/17/20 Rx [Duoneb 0.5 mg-3 mg/3 ml Soln] Ipratropium-Albuterol Nebulize 3 ml INHALATION RT-TID PRN ml 09/13/20 09/17/20 Rx [Duoneb 0.5 mg-3 mg/3 ml Soln] Budesonide/Formoterol Fumarate 2 puff INHALATION RT-BID 09/17/20 09/17/20 History [Symbicort 80-4.5 Mcg Inhaler] Pantoprazole Sodium [Protonix] 40 mg PO BID@0900,1700 09/17/20 09/17/20 History Allergies Allergy/AdvReac Type Severity Reaction Status Date / Time adhesive Allergy Rash/Hives Verified 09/17/20 10:04 Penicillins Allergy Swelling Verified 09/17/20 10:04 atorvastatin AdvReac Abdominal Verified 09/17/20 10:04 Pain Physical Exam Vitals: Vital Signs Temp Pulse Resp BP Pulse Ox 09/17/20 13:57 124 H 09/17/20 13:49 130 H 09/17/20 13:31 122 H 18 132/88 96 09/17/20 11:02 130 H 18 111/89 99 09/17/20 10:09 140 H 18 102/71 98 09/17/20 09:40 135 H 16 78/61 95 09/17/20 08:47 98.2 F 134 H 24 100/70 97 Intake and Output 09/16/20 09/17/20 09/17/20 22:59 06:59 14:59 Other: Weight 52.163 kg PHYSICAL EXAMINATION: Patient is lying in the bed comfortably, mild distress, awake alert and oriented .. HEENT: Normocephalic. Neck is supple. Pupils reactive. Nostrils clear. Oral cavity is moist. Ears reveal no drainage. Neck reveals no JVD, carotid bruits, or thyromegaly. CHEST EXAMINATION: Trachea is central. Symmetrical expansion. Lung anguiano clear to auscultation and percussion. CARDIAC: Normal S1, S2 with no gallops. No murmurs ABDOMEN: Soft. Mild abdominal tenderness. Upper mid abdominal surgical site with intact sav and no evidence of infection. Bowel sounds present.. No organo megaly. No abdominal bruits. Extremities: reveal no edema. No clubbing or cyanosis Neurologically awake, alert, oriented x3 with well-coordinated movements. No focal deficits noted Skin: No rash or skin lesions. Psychiatric: Coperative. Nonsuicidal Musculoskeletal: No joint swelling or deformity. Normal range of motion. Results CBC & Chem 7: 09/17/20 15:36 09/17/20 09:17 Labs: Abnormal Lab Results - Last 24 Hours (Table) 09/17/20 09/17/20 09/17/20 Range/Units 09:17 09:17 09:17 WBC 16.7 H (3.8-10.6) k/uL RDW 16.7 H (11.5-15.5) % Plt Count 655 H (150-450) k/uL Neutrophils # 14.2 H (1.3-7.7) k/uL APTT 20.7 L (22.0-30.0) sec Chloride 83 L (98-107) mmol/L Carbon Dioxide 37 H (22-30) mmol/L BUN 27 H (7-17) mg/dL Glucose 166 H (74-99) mg/dL Plasma Lactic Acid Nathanael (0.7-2.0) mmol/L AST 40 H (14-36) U/L ALT 53 H (4-34) U/L Alkaline Phosphatase 352 H (38-126) U/L Troponin I (0.000-0.034) ng/mL Lipase 13 L (23-300) U/L 09/17/20 09/17/20 Range/Units 09:17 09:17 WBC (3.8-10.6) k/uL RDW (11.5-15.5) % Plt Count (150-450) k/uL Neutrophils # (1.3-7.7) k/uL APTT (22.0-30.0) sec Chloride (98-107) mmol/L Carbon Dioxide (22-30) mmol/L BUN (7-17) mg/dL Glucose (74-99) mg/dL Plasma Lactic Acid Nathanael 3.7 H* (0.7-2.0) mmol/L AST (14-36) U/L ALT (4-34) U/L Alkaline Phosphatase (38-126) U/L Troponin I 0.102 H* (0.000-0.034) ng/mL Lipase (23-300) U/L Thrombosis Risk Factor Assmnt - DVT/VTE Prophylaxis DVT/VTE Prophylaxis: Mechanical Prophylaxis ordered Assessment and Plan Assessment: Coffee-ground emesis possible upper GI bleed. Hemoglobin 11.8-->9.3 acute blood loss anemia small bowel volvulus lactic acidosis 3.7 improved with IV hydration. status post gastrojejunostomy on 09/01/2020 for gastric outlet obstruction. No evidence of free air in the CT abdomen pelvis. Hypertension controlled coronary artery disease history of stent placement hyperlipidemia GERD osteoarthritis history of COVID-19 pneumonia in July 2020 DVT prophylaxis with SCDs. Plan: Patient will be continued on IV hydration and nothing by mouth. NG tube was placed for decompression and monitor H&H closely. Continue with symptomatic management for nausea and vomiting. Continue with Protonix IV 40 mg twice daily. Continue with breathing treatments and home medications. DVT prophylaxis with SCDs. Patient was given a dose of ceftriaxone and Flagyl in the ER. Allergic to penicillins. Monitor WBC count and will start on empiric antibiotics if trending up. General surgery was consulted and further recommendations based on the clinical course. Prognosis is guarded at this time. Time with Patient: Greater than 30
[2020-09-18 01:34] LABS: Anisocytosis Slight; HCT 25.4 % (34.0-46.0); HGB 8.1 gm/dL (11.4-16.0); Hypochromasia Moderate; MCH 28.6 pg (25.0-35.0); MCHC 31.8 g/dL (31.0-37.0); MCV 89.9 fL (80.0-100.0); Mean Platelet Volume 9.5; Platelet Count 410 k/uL (150-450); RBC 2.82 m/uL (3.80-5.40); RDW 16.7 % (11.5-15.5); WBC 14.1 k/uL (3.8-10.6)
[2020-09-18] MEDS: ONDANSETRON 4 MG/2 ML VIAL IVP PRN ×2 (03:47→20:22)
[2020-09-18] MEDS: SODIUM CHLORIDE 0.9% 1,000 ML IV SCH ×3 (04:35→20:22)
[2020-09-18 06:08] LABS: Glucose,Whole Blood 115 mg/dL (75-99)
[2020-09-18 08:28] LABS: Calcium 8.2 mg/dL (8.4-10.2); Potassium 3.2 mmol/L (3.5-5.1)
[2020-09-18] MEDS ORDERED: Potassium Replacement Protocol 1 EACH MISC MISCELLANE PRN (08:32)
[2020-09-18] MEDS: IPRATROPIUM-ALBUTEROL 3 ML NEB INHALATION SCH ×3 (08:36→21:05)
[2020-09-18] MEDS: SYMBICORT 80-4.5 MCG INHALER INHALATION SCH ×2 (08:36→21:05)
--- NOTE | 2020-09-18 09:35 | P.PN ---
Subjective Progress Note Date: 09/18/20 Principal diagnosis: Gastric distention Patient was admitted through the ER yesterday. She came back from [facility] with complaints of intractable nausea and vomiting. Nasogastric tube was placed with significant output. Most recent abdominal x-ray still shows the tip of the nasogastric tube to be not fully within the stomach. NG tube is bilious however. She denies pain. Labs demonstrated a white blood cell count of 14,000. Lactic acidosis has resolved. Her tachycardia has improved. Objective - Vital Signs Vital signs: Vital Signs Temp 98.0 F 09/17/20 20:00 Pulse 113 H 09/18/20 04:00 Resp 18 09/18/20 04:00 BP 110/71 09/18/20 04:00 Pulse Ox 95 09/18/20 04:00 Intake & Output 09/17/20 09/18/20 09/18/20 18:59 06:59 18:59 Intake Total 1630 Output Total 1350 500 Balance -1350 1130 Weight 52.163 kg 49.5 kg Intake: Intake, IV Titration 910 Amount Sodium Chloride 0.9% 1, 910 000 ml @ 130 mls/hr IV . Q7H42M [facility] Rx#:[id number] Oral 720 Output: Gastric Drainage 1350 500 Other: Voiding Method Indwelling Catheter - Exam Abdomen: Soft, nondistended, nontender, recent incision clean and dry, some sav still present - Labs CBC & Chem 7: 09/18/20 01:10 09/18/20 07:42 Labs: Abnormal Lab Results - Last 24 Hours (Table) 09/17/20 09/17/20 09/17/20 Range/Units 09:17 09:17 09:17 WBC 16.7 H (3.8-10.6) k/uL RBC (3.80-5.40) m/uL Hgb (11.4-16.0) gm/dL Hct (34.0-46.0) % MCHC (31.0-37.0) g/dL RDW 16.7 H (11.5-15.5) % Plt Count 655 H (150-450) k/uL Neutrophils # 14.2 H (1.3-7.7) k/uL APTT 20.7 L (22.0-30.0) sec Potassium (3.5-5.1) mmol/L Chloride 83 L (98-107) mmol/L Carbon Dioxide 37 H (22-30) mmol/L BUN 27 H (7-17) mg/dL Glucose 166 H (74-99) mg/dL POC Glucose (mg/dL) (75-99) mg/dL Plasma Lactic Acid Nathanael (0.7-2.0) mmol/L Calcium (8.4-10.2) mg/dL AST 40 H (14-36) U/L ALT 53 H (4-34) U/L Alkaline Phosphatase 352 H (38-126) U/L Troponin I (0.000-0.034) ng/mL Lipase 13 L (23-300) U/L Urine Protein (Negative) Urine Ketones (Negative) 09/17/20 09/17/20 09/17/20 Range/Units 09:17 09:17 15:36 WBC 17.1 H (3.8-10.6) k/uL RBC 3.38 L (3.80-5.40) m/uL Hgb 9.3 L D (11.4-16.0) gm/dL Hct 30.6 L (34.0-46.0) % MCHC 30.5 L (31.0-37.0) g/dL RDW 16.7 H (11.5-15.5) % Plt Count 496 H (150-450) k/uL Neutrophils # 14.9 H (1.3-7.7) k/uL APTT (22.0-30.0) sec Potassium (3.5-5.1) mmol/L Chloride (98-107) mmol/L Carbon Dioxide (22-30) mmol/L BUN (7-17) mg/dL Glucose (74-99) mg/dL POC Glucose (mg/dL) (75-99) mg/dL Plasma Lactic Acid Nathanael 3.7 H* (0.7-2.0) mmol/L Calcium (8.4-10.2) mg/dL AST (14-36) U/L ALT (4-34) U/L Alkaline Phosphatase (38-126) U/L Troponin I 0.102 H* (0.000-0.034) ng/mL Lipase (23-300) U/L Urine Protein (Negative) Urine Ketones (Negative) 09/17/20 09/17/20 09/17/20 Range/Units 15:36 18:05 19:58 WBC (3.8-10.6) k/uL RBC (3.80-5.40) m/uL Hgb (11.4-16.0) gm/dL Hct (34.0-46.0) % MCHC (31.0-37.0) g/dL RDW (11.5-15.5) % Plt Count (150-450) k/uL Neutrophils # (1.3-7.7) k/uL APTT (22.0-30.0) sec Potassium (3.5-5.1) mmol/L Chloride (98-107) mmol/L Carbon Dioxide (22-30) mmol/L BUN (7-17) mg/dL Glucose (74-99) mg/dL POC Glucose (mg/dL) 125 H (75-99) mg/dL Plasma Lactic Acid Nathanael 3.7 H* (0.7-2.0) mmol/L Calcium (8.4-10.2) mg/dL AST (14-36) U/L ALT (4-34) U/L Alkaline Phosphatase (38-126) U/L Troponin I (0.000-0.034) ng/mL Lipase (23-300) U/L Urine Protein Trace H (Negative) Urine Ketones 1+ H (Negative) 09/18/20 09/18/20 09/18/20 Range/Units 01:10 06:06 07:42 WBC 14.1 H (3.8-10.6) k/uL RBC 2.82 L (3.80-5.40) m/uL Hgb 8.1 L (11.4-16.0) gm/dL Hct 25.4 L (34.0-46.0) % MCHC (31.0-37.0) g/dL RDW 16.7 H (11.5-15.5) % Plt Count (150-450) k/uL Neutrophils # (1.3-7.7) k/uL APTT (22.0-30.0) sec Potassium 3.2 L (3.5-5.1) mmol/L Chloride 96 L (98-107) mmol/L Carbon Dioxide 34 H (22-30) mmol/L BUN 32 H (7-17) mg/dL Glucose (74-99) mg/dL POC Glucose (mg/dL) 115 H (75-99) mg/dL Plasma Lactic Acid Nathanael (0.7-2.0) mmol/L Calcium 8.2 L (8.4-10.2) mg/dL AST (14-36) U/L ALT (4-34) U/L Alkaline Phosphatase (38-126) U/L Troponin I (0.000-0.034) ng/mL Lipase (23-300) U/L Urine Protein (Negative) Urine Ketones (Negative) 09/18/20 Range/Units 07:42 WBC (3.8-10.6) k/uL RBC (3.80-5.40) m/uL Hgb (11.4-16.0) gm/dL Hct (34.0-46.0) % MCHC (31.0-37.0) g/dL RDW (11.5-15.5) % Plt Count (150-450) k/uL Neutrophils # (1.3-7.7) k/uL APTT (22.0-30.0) sec Potassium (3.5-5.1) mmol/L Chloride (98-107) mmol/L Carbon Dioxide (22-30) mmol/L BUN (7-17) mg/dL Glucose (74-99) mg/dL POC Glucose (mg/dL) (75-99) mg/dL Plasma Lactic Acid Nathanael (0.7-2.0) mmol/L Calcium (8.4-10.2) mg/dL AST (14-36) U/L ALT (4-34) U/L Alkaline Phosphatase (38-126) U/L Troponin I 0.103 H* (0.000-0.034) ng/mL Lipase (23-300) U/L Urine Protein (Negative) Urine Ketones (Negative) Assessment and Plan (1) Gastric outlet obstruction Narrative/Plan: Films reviewed with radiology yesterday. Abdominal x-rays after nasogastric tube placement also reviewed. Findings may represent twisting of the gastrojejunostomy resulting in partial obstruction. Bilious fluid is in the nasogastric tube canister suggesting some patency of the anastomotic site. Case was discussed with Dr. Medeiros. We'll tentatively schedule for exploratory l aparotomy on Sunday. Keep nasogastric tube in place for now. If the patient's condition improves and x-rays show resolution of bowel distention may be able to avoid reexploration. Keep nothing by mouth and no medications orally for now. Continue IV hydration. Current Visit: No Status: Acute Code(s): K31.1 - ADULT HYPERTROPHIC PYLORIC STENOSIS SNOMED Code(s): 922136251
[2020-09-18] MEDS: PANTOPRAZOLE 40 MG/10 ML VIAL IV SCH ×2 (09:51→20:22)
[2020-09-18] MEDS: POTASSIUM CHLORIDE 10 MEQ in WATER FOR INJECTION 1 100ML.BAG IVPB SCH ×4 (09:52→14:52)
[2020-09-18] MEDS: OXYBUTYNIN CHLORIDE 5 MG TAB PO SCH ×3 (09:52→20:10)
[2020-09-18] MEDS: THIAMINE 100 MG TAB PO SCH (09:52)
[2020-09-18] MEDS: FOLIC ACID 1 MG TAB PO SCH (09:52)
[2020-09-18] MEDS: ZINC SULFATE 220 MG CAP PO SCH (09:53)
[2020-09-18 11:59] LABS: Glucose,Whole Blood 91 mg/dL (75-99)
--- NOTE | 2020-09-18 12:25 | XR ---
EXAMINATION TYPE: XR abdomen 2V DATE OF EXAM: 09/18/2020 CLINICAL DATA: 75-year-old female GI bleed, NG tube placement, [facility] COMPARISON: 09/17/2020 FINDINGS: NG tube is 4, tip probably within the first part of the duodenum. Prominent elevation of ri ght hemidiaphragm remains with dilated small bowel loops in the right upper quadrant measuring up to 4.6 cm versus 4.2 cm, previously. Possibly of colonic air. Some residual oral contrast material outli tyler left-sided colonic diverticula. 3 cm calcified uterine fibroid. End-stage degenerative change le ft hip. IMPRESSION: 1. The tip of the NG tube probably is within the first part of the duodenum. 2. Continued abnormally dilated small bowel loops in the right upper quadrant measuring up to 4.6 cm versus 4.2 cm, previously. Consider continued small bowel obstruction from internal hernia/volvulus.
--- NOTE | 2020-09-18 13:06 | P.PN ---
Subjective Patient is a 75-year-old female with known history of hypertension, hyperlipidemia, osteoarthritis, coronary artery disease with history of stent pl acement, gait dysfunction and history of Covid pneumonia and has been on oxygen since then, recent history of gastro jejunostomy for gastric outlet obstruction on 09/01/2020 and was discharged to extended care facility on 09/13/2020. She has been doing well until 3 days ago. Started vomiting dark-colored/coffee-ground liquids. Unable to tolerate any oral diet. No bowel meds for the past 3 days. Mild abdominal pain and low-grade fever as per patient. On admission blood pressure was 100/70 pulse 134 and respiration 24 and pulse ox 97% on room air. Chest x-ray showed presence of 8 below the hemidiaphragm probably air within the stomach and interposed bowel. However we are unable to entirely exclude mild free intraperitoneal air.. CT of the abdomen pelvis was done which showed there is swirl pattern within a transition in the right upper quadrant small bowel compatible with the volvulus. Diverticulosis without acute diverticulitis. Laboratory data showed WBC 16.7, hemoglobin 11.8 and platelets 655 sodium 141 potassium 3.7 chloride 83 bicarb is 37 BUN 27 creatinine 1.01 lactic acid 3.7 AST 40 ALT 33 alk phos 352 and troponin 0 0.102 gastric occult blood is positive. COVID-19 PCR not detected.. Patient had EGD 08/25/2020 showed mild gastritis and LA grade B distal esophagitis. 09/18/2020 Patient is still having NG tube drainage and patient the NG tube is in the first part of the creatinine from still has dilated bowel loops probably this. Need to withdraw NG tube a bit. Constitutional: Denied any fatigue denied any fever. Cardio vascular: denied any chest pain, palpitations Gastrointestinal denied any nausea vomiting Pulmonary: Denied any shortness of breath cough Neurologic denied any new focal deficits All inpatient medications were reviewed and appropriate changes in these medications as dictated in the interval history and assessment and plan. Objective - Vital Signs Vital signs: Vital Signs Temp 98.7 F 09/18/20 08:00 Pulse 118 H 09/18/20 08:00 Resp 18 09/18/20 08:00 BP 125/83 09/18/20 08:00 Pulse Ox 98 09/18/20 08:00 Intake & Output 09/17/20 09/18/20 09/18/20 18:59 06:59 18:59 Intake Total 1630 Output Total 1350 500 900 Balance -1350 1130 -900 Weight 52.163 kg 49.5 kg Intake: Intake, IV Titration 910 Amount Sodium Chloride 0.9% 1, 910 000 ml @ 130 mls/hr IV . Q7H42M [facility] Rx#:[id number] Oral 720 Output: Gastric Drainage 1350 500 Urine 900 Other: Voiding Method Indwelling Catheter Indwelling Catheter - Exam PHYSICAL EXAMINATION: GENERAL: The patient is alert and oriented x3, not in any acute distress. Thin built HEENT: Pupils are round and equally reacting to light. EOMI. No scleral icterus. No conjunctival pallor. Normocephalic, atraumatic. No pharyngeal erythema. No thyromegaly. CARDIOVASCULAR: S1 and S2 present. No murmurs, rubs, or gallops. PULMONARY: Chest is clear to auscultation, no wheezing or crackles. ABDOMEN: Soft, nontender, nondistended, sluggish bowel sounds No palpable organomegaly. MUSCULOSKELETAL: No joint swelling or deformity. EXTREMITIES: No cyanosis, clubbing, or pedal edema. NEUROLOGICAL: Gross neurological examination did not reveal any focal deficits. SKIN: No rashes. - Labs CBC & Chem 7: 09/18/20 01:10 09/18/20 07:42 Labs: Abnormal Lab Results - Last 24 Hours (Table) 09/17/20 09/17/20 09/17/20 Range/Units 15:36 15:36 18:05 WBC 17.1 H (3.8-10.6) k/uL RBC 3.38 L (3.80-5.40) m/uL Hgb 9.3 L D (11.4-16.0) gm/dL Hct 30.6 L (34.0-46.0) % MCHC 30.5 L (31.0-37.0) g/dL RDW 16.7 H (11.5-15.5) % Plt Count 496 H (150-450) k/uL Neutrophils # 14.9 H (1.3-7.7) k/uL Potassium (3.5-5.1) mmol/L Chloride (98-107) mmol/L Carbon Dioxide (22-30) mmol/L BUN (7-17) mg/dL POC Glucose (mg/dL) (75-99) mg/dL Plasma Lactic Acid Nathanael 3.7 H* (0.7-2.0) mmol/L Calcium (8.4-10.2) mg/dL Troponin I (0.000-0.034) ng/mL Urine Protein Trace H (Negative) Urine Ketones 1+ H (Negative) 09/17/20 09/18/20 09/18/20 Range/Units 19:58 01:10 06:06 WBC 14.1 H (3.8-10.6) k/uL RBC 2.82 L (3.80-5.40) m/uL Hgb 8.1 L (11.4-16.0) gm/dL Hct 25.4 L (34.0-46.0) % MCHC (31.0-37.0) g/dL RDW 16.7 H (11.5-15.5) % Plt Count (150-450) k/uL Neutrophils # (1.3-7.7) k/uL Potassium (3.5-5.1) mmol/L Chloride (98-107) mmol/L Carbon Dioxide (22-30) mmol/L BUN (7-17) mg/dL POC Glucose (mg/dL) 125 H 115 H (75-99) mg/dL Plasma Lactic Acid Nathanael (0.7-2.0) mmol/L Calcium (8.4-10.2) mg/dL Troponin I (0.000-0.034) ng/mL Urine Protein (Negative) Urine Ketones (Negative) 09/18/20 09/18/20 Range/Units 07:42 07:42 WBC (3.8-10.6) k/uL RBC (3.80-5.40) m/uL Hgb (11.4-16.0) gm/dL Hct (34.0-46.0) % MCHC (31.0-37.0) g/dL RDW (11.5-15.5) % Plt Count (150-450) k/uL Neutrophils # (1.3-7.7) k/uL Potassium 3.2 L (3.5-5.1) mmol/L Chloride 96 L (98-107) mmol/L Carbon Dioxide 34 H (22-30) mmol/L BUN 32 H (7-17) mg/dL POC Glucose (mg/dL) (75-99) mg/dL Plasma Lactic Acid Nathanael (0.7-2.0) mmol/L Calcium 8.2 L (8.4-10.2) mg/dL Troponin I 0.103 H* (0.000-0.034) ng/mL Urine Protein (Negative) Urine Ketones (Negative) Assessment and Plan Plan: Possible gastric outlet obstruction: Continue with NG tube intermittent suction dosages following the patient. is presently on Rocephin and metronidazole which will be continued for now. Possible Coffee-ground emesis possible upper GI bleed. Hemoglobin 11.8-->9.3 oh monitor clinically continue with Protonix Possible acute blood loss anemia lactic acidosis 3.7 improved with IV hydration. Again due to intravascular depletion any with IV fluids will cut on IV fluids and this is lower as her output has come down patient has around 100 mL output from the NG tube today status post gastrojejunostomy on 09/01/2020 for gastric outlet obstruction. -Sinus tachycardia secondary to intravascular depletion Hypertension controlled coronary artery disease history of stent placement hyperlipidemia GERD osteoarthritis history of COVID-19 pneumonia in July 2020 DVT prophylaxis with SCDs.
[2020-09-19] MEDS: SYMBICORT 80-4.5 MCG INHALER INHALATION SCH ×2 (08:15→20:50)
[2020-09-19] MEDS: IPRATROPIUM-ALBUTEROL 3 ML NEB INHALATION SCH ×3 (08:15→20:49)
[2020-09-19] MEDS: ONDANSETRON 4 MG/2 ML VIAL IVP PRN (08:16)
[2020-09-19] MEDS: PANTOPRAZOLE 40 MG/10 ML VIAL IV SCH ×2 (08:16→21:54)
[2020-09-19] MEDS: MORPHINE SULFATE 4 MG/ML SYRINGE IVP PRN ×2 (08:17→14:51)
[2020-09-19 09:11] LABS: Anisocytosis Slight; Basophils % (A) 0 %; Eosinophils % (A) 0 %; HCT 20.2 % (34.0-46.0); Hypochromasia Marked; Lymphocytes # (A) 1.1 k/uL (1.0-4.8); Lymphocytes % (A) 18 %; MCH 28.5 pg (25.0-35.0); MCHC 31.3 g/dL (31.0-37.0); MCV 91.1 fL (80.0-100.0); Mean Platelet Volume 9.4; Monocytes # (A) 0.4 k/uL (0-1.0); Monocytes % (A) 6 %; Neutrophils # (A) 4.7 k/uL (1.3-7.7); Neutrophils % (A) 74 %; Platelet Count 309 k/uL (150-450); RBC 2.21 m/uL (3.80-5.40); RDW 16.3 % (11.5-15.5); WBC 6.4 k/uL (3.8-10.6)
[2020-09-19 09:14] LABS: African American GFR (CKD) >90 (>60 ml/min/1.73 sqM); Anion Gap 10 mmol/L; Blood Urea Nitrogen 21 mg/dL (7-17); Calcium 8.2 mg/dL (8.4-10.2); Carbon Dioxide 28 mmol/L (22-30); Chloride 102 mmol/L (98-107); Glucose 64 mg/dL (74-99); Non-African American GFR(CKD) 85 (>60 ml/min/1.73 sqM); Potassium 3.1 mmol/L (3.5-5.1); Sodium 140 mmol/L (137-145)
[2020-09-19 09:17] LABS: HGB 6.3 gm/dL (11.4-16.0)
--- NOTE | 2020-09-19 10:01 | P.PN ---
Subjective Progress Note Date: 09/19/20 Principal diagnosis: Gastric distention Patient complaining of a headache this morning. Had some mild abdominal discomfort overnight but that is resolved. Nasogastric tube remains bilious. Hemoglobin this morning decreased at 6.3. She is afebrile. Tachycardia has resolved. White blood cell count normal. Objective - Vital Signs Vital signs: Vital Signs Temp 98.8 F 09/18/20 20:00 Pulse 89 09/19/20 04:00 Resp 18 09/19/20 04:00 BP 159/80 09/19/20 04:00 Pulse Ox 98 09/19/20 04:00 Intake & Output 09/18/20 09/19/20 09/19/20 18:59 06:59 18:59 Intake Total 1040 Output Total 1250 400 Balance -1250 640 Weight 48 kg Intake: Intake, IV Titration 800 Amount Sodium Chloride 0.9% 1, 800 000 ml @ 100 mls/hr IV . Q10H [facility] Rx#:[id number] Oral 240 Output: Gastric Drainage 400 Urine 1250 Other: Voiding Method Indwelling Catheter Indwelling Catheter - Exam Abdomen: Soft, nondistended, no appreciable tenderness - Labs CBC & Chem 7: 09/19/20 08:35 09/19/20 08:35 Labs: Abnormal Lab Results - Last 24 Hours (Table) 09/17/20 09/19/20 09/19/20 Range/Units 09:17 08:35 08:35 RBC 2.21 L (3.80-5.40) m/uL Hgb 6.3 L* D (11.4-16.0) gm/dL Hct 20.2 L (34.0-46.0) % RDW 16.3 H (11.5-15.5) % Potassium 3.1 L (3.5-5.1) mmol/L BUN 21 H (7-17) mg/dL Glucose 64 L (74-99) mg/dL Calcium 8.2 L (8.4-10.2) mg/dL Crossmatch See Detail Microbiology - Last 24 Hours (Table) 09/17/20 13:25 Blood Culture - Preliminary Blood No Growth after 24 hours 09/17/20 13:00 Blood Culture - Preliminary Blood No Growth after 24 hours Assessment and Plan (1) Gastric outlet obstruction Narrative/Plan: Keep nothing by mouth for now. Keep nasogastric tube to suction. Transfuse one unit PRBC. We'll order repeat x-ray for tomorrow morning. Current Visit: No Status: Acute Code(s): K31.1 - ADULT HYPERTROPHIC PYLORIC STENOSIS SNOMED Code(s): 103743207
[2020-09-19] MEDS: POTASSIUM CHLORIDE 10 MEQ in WATER FOR INJECTION 1 100ML.BAG IVPB SCH ×8 (11:03→19:15)
--- NOTE | 2020-09-19 11:19 | P.PN ---
Subjective Patient is a 75-year-old female with known history of hypertension, hyperlipidemia, osteoarthritis, coronary artery disease with history of stent pl acement, gait dysfunction and history of Covid pneumonia and has been on oxygen since then, recent history of gastro jejunostomy for gastric outlet obstruction on 09/01/2020 and was discharged to extended care facility on 09/13/2020. She has been doing well until 3 days ago. Started vomiting dark-colored/coffee-ground liquids. Unable to tolerate any oral diet. No bowel meds for the past 3 days. Mild abdominal pain and low-grade fever as per patient. On admission blood pressure was 100/70 pulse 134 and respiration 24 and pulse ox 97% on room air. Chest x-ray showed presence of 8 below the hemidiaphragm probably air within the stomach and interposed bowel. However we are unable to entirely exclude mild free intraperitoneal air.. CT of the abdomen pelvis was done which showed there is swirl pattern within a transition in the right upper quadrant small bowel compatible with the volvulus. Diverticulosis without acute diverticulitis. Laboratory data showed WBC 16.7, hemoglobin 11.8 and platelets 655 sodium 141 potassium 3.7 chloride 83 bicarb is 37 BUN 27 creatinine 1.01 lactic acid 3.7 AST 40 ALT 33 alk phos 352 and troponin 0 0.102 gastric occult blood is positive. COVID-19 PCR not detected.. Patient had EGD 08/25/2020 showed mild gastritis and LA grade B distal esophagitis. 09/18/2020 Patient is still having NG tube drainage and patient the NG tube is in the first part of the creatinine from still has dilated bowel loops probably this. Need to withdraw NG tube a bit. 09/19/2020 Patient is passing gas but I can barely hear any bowel sounds still has an NG tube which drained around 300 mL last night nothing today. Patient is using ice chips. Hemoglobin did drop to 6.3 receiving 1 unit of PRBC transfusion. Patient doesn't have any coffee-ground any emesis any more. Constitutional: Denied any fatigue denied any fever. Cardio vascular: denied any chest pain, palpitations Gastrointestinal denied any nausea vomiting Pulmonary: Denied any shortness of breath cough Neurologic denied any new focal deficits All inpatient medications were reviewed and appropriate changes in these medications as dictated in the interval history and assessment and plan. Objective - Vital Signs Vital signs: Vital Signs Temp 98.8 F 09/18/20 20:00 Pulse 89 09/19/20 04:00 Resp 18 09/19/20 04:00 BP 159/80 09/19/20 04:00 Pulse Ox 98 09/19/20 04:00 Intake & Output 09/18/20 09/19/20 09/19/20 18:59 06:59 18:59 Intake Total 1040 Output Total 1250 400 Balance -1250 640 Weight 48 kg Intake: Intake, IV Titration 800 Amount Sodium Chloride 0.9% 1, 800 000 ml @ 100 mls/hr IV . Q10H [facility] Rx#:[id number] Oral 240 Output: Gastric Drainage 400 Urine 1250 Other: Voiding Method Indwelling Catheter Indwelling Catheter - Exam PHYSICAL EXAMINATION: GENERAL: The patient is alert and oriented x3, not in any acute distress. Thin built HEENT: Pupils are round and equally reacting to light. EOMI. No scleral icterus. No conjunctival pallor. Normocephalic, atraumatic. No pharyngeal erythema. No thyromegaly. CARDIOVASCULAR: S1 and S2 present. No murmurs, rubs, or gallops. PULMONARY: Chest is clear to auscultation, no wheezing or crackles. ABDOMEN: Soft, nontender, nondistended, sluggish bowel sounds No palpable organomegaly. MUSCULOSKELETAL: No joint swelling or deformity. EXTREMITIES: No cyanosis, clubbing, or pedal edema. NEUROLOGICAL: Gross neurological examination did not reveal any focal deficits. SKIN: No rashes. - Labs CBC & Chem 7: 09/19/20 08:35 09/19/20 08:35 Labs: Abnormal Lab Results - Last 24 Hours (Table) 09/17/20 09/19/20 09/19/20 Range/Units 09:17 08:35 08:35 RBC 2.21 L (3.80-5.40) m/uL Hgb 6.3 L* D (11.4-16.0) gm/dL Hct 20.2 L (34.0-46.0) % RDW 16.3 H (11.5-15.5) % Potassium 3.1 L (3.5-5.1) mmol/L BUN 21 H (7-17) mg/dL Glucose 64 L (74-99) mg/dL Calcium 8.2 L (8.4-10.2) mg/dL Crossmatch See Detail Microbiology - Last 24 Hours (Table) 09/17/20 13:25 Blood Culture - Preliminary Blood No Growth after 24 hours 09/17/20 13:00 Blood Culture - Preliminary Blood No Growth after 24 hours Assessment and Plan Plan: Possible gastric outlet obstruction: Continue with NG tube intermittent suction dosages following the patient. Patient is not on antibiotics anymore and will not require any antibiotics there is no evidence of colitis Possible Coffee-ground emesis possible upper GI bleed. Hemoglobin did drop to 6.3 transfusing 1 unit of PRBC on admission her hemoglobin is around 11.8 .monitor clinically continue with Protonix Possible acute blood loss anemia lactic acidosis 3.7 improved with IV hydration. due to intravascular depletion any with IV fluids will cut on IV fluids and this is lower as her output has come down patient has around 100 mL output from the NG tube today status post gastrojejunostomy on 09/01/2020 for gastric outlet obstruction. -Sinus tachycardia secondary to intravascular depletion Hypertension controlled coronary artery disease history of stent placement hyperlipidemia GERD osteoarthritis history of COVID-19 pneumonia in July 2020 DVT prophylaxis with SCDs.
[2020-09-19] MEDS: ACETAMINOPHEN IV (For NPO) 750 MG in EMPTY BAG 1 BAG IVPB SCH ×3 (11:52→21:54)
[2020-09-19] MEDS: SODIUM CHLORIDE 0.9% 1,000 ML IV SCH (15:11)
[2020-09-19] MEDS: OXYBUTYNIN CHLORIDE 5 MG TAB PO SCH ×2 (15:12→21:53)
[2020-09-19] MEDS: FOLIC ACID 1 MG TAB PO SCH (15:12)
[2020-09-19] MEDS: THIAMINE 100 MG TAB PO SCH (15:12)
[2020-09-19] MEDS: ZINC SULFATE 220 MG CAP PO SCH (15:12)
[2020-09-19] MEDS: SODIUM CHLORIDE 0.9% 1,000 ML with POTASSIUM CHLORIDE 30 MEQ IV SCH ×2 (18:09)
[2020-09-20] MEDS: ONDANSETRON 4 MG/2 ML VIAL IVP PRN ×2 (01:09→10:05)
[2020-09-20] MEDS: SODIUM CHLORIDE 0.9% 1,000 ML with POTASSIUM CHLORIDE 30 MEQ IV SCH ×6 (05:27→17:10)
[2020-09-20] MEDS: ACETAMINOPHEN IV (For NPO) 750 MG in EMPTY BAG 1 BAG IVPB SCH (06:39)
[2020-09-20] MEDS: IPRATROPIUM-ALBUTEROL 3 ML NEB INHALATION SCH ×3 (07:48→20:15)
[2020-09-20] MEDS: SYMBICORT 80-4.5 MCG INHALER INHALATION SCH ×2 (07:48→20:15)
[2020-09-20 08:29] LABS: Potassium 4.6 mmol/L (3.5-5.1)
[2020-09-20 08:30] LABS: African American GFR (CKD) >90 (>60 ml/min/1.73 sqM); Anion Gap 7 mmol/L; Blood Urea Nitrogen 11 mg/dL (7-17); Carbon Dioxide 23 mmol/L (22-30); Chloride 106 mmol/L (98-107); Glucose 52 mg/dL (74-99); Non-African American GFR(CKD) >90 (>60 ml/min/1.73 sqM); Sodium 136 mmol/L (137-145)
[2020-09-20 08:42] LABS: Anisocytosis Slight; Basophils % (A) 0 %; Eosinophils # (A) 0.1 k/uL (0-0.7); Eosinophils % (A) 1 %; HCT 22.2 % (34.0-46.0); HGB 7.4 gm/dL (11.4-16.0); Hypochromasia Moderate; Lymphocytes # (A) 1.1 k/uL (1.0-4.8); Lymphocytes % (A) 20 %; MCH 29.6 pg (25.0-35.0); MCHC 33.3 g/dL (31.0-37.0); MCV 88.9 fL (80.0-100.0); Mean Platelet Volume 8.9; Monocytes # (A) 0.4 k/uL (0-1.0); Monocytes % (A) 6 %; Neutrophils # (A) 4.1 k/uL (1.3-7.7); Neutrophils % (A) 72 %; Platelet Count 263 k/uL (150-450); Poikilocytosis Slight; RBC 2.49 m/uL (3.80-5.40); WBC 5.7 k/uL (3.8-10.6)
[2020-09-20] MEDS: THIAMINE 100 MG TAB PO SCH (08:58)
[2020-09-20] MEDS: FOLIC ACID 1 MG TAB PO SCH (08:58)
[2020-09-20] MEDS: OXYBUTYNIN CHLORIDE 5 MG TAB PO SCH ×3 (08:58→21:36)
[2020-09-20] MEDS: ZINC SULFATE 220 MG CAP PO SCH (08:59)
[2020-09-20] MEDS: PANTOPRAZOLE 40 MG/10 ML VIAL IV SCH ×2 (09:07→21:39)
[2020-09-20] MEDS ORDERED: SODIUM CHLORIDE 0.9% 1,000 ML IV ONE ×2 (09:44→15:28)
[2020-09-20] MEDS ORDERED: HEPARIN SODIUM,PORCINE/PF 5,000 UNIT/0.5 ML SYRINGE SQ ONE (10:12)
[2020-09-20] MEDS ORDERED: HEPARIN SODIUM,PORCINE 5,000 UNIT/ML 1 ML VIAL SQ ONE (10:12)
[2020-09-20] MEDS ORDERED: PHENYLEPHRINE-0.9% NACL SYG 1,000 MCG/10 ML SYRINGE ONE (10:47)
[2020-09-20] MEDS ORDERED: fentaNYL (PF) 50 MCG/ML 2 ML AMP ONE (10:47)
[2020-09-20] MEDS ORDERED: GLYCOPYRROLATE 0.2 MG/ML 2 ML VIAL ONE (10:47)
[2020-09-20] MEDS ORDERED: ROCURONIUM 10 MG/ML (5 ML VIAL) IV ONE (10:47)
[2020-09-20] MEDS ORDERED: LIDOCAINE 1% INJ 10MG/ML (20 ML MDV) ONE (10:47)
[2020-09-20] MEDS ORDERED: PROPOFOL 10 MG/ML 20 ML VIAL IV ONE (10:47)
[2020-09-20] MEDS ORDERED: NEOSTIGMINE 1 MG/ML 10 ML VIAL ONE (10:47)
[2020-09-20] MEDS ORDERED: SUCCINYLCHOLINE CHLORIDE 100 MG/5 ML SYR IV ONE (10:47)
[2020-09-20] MEDS ORDERED: SODIUM CHLORIDE 0.9% 100 ML with ceFAZolin 1,000 MG IV ONE ×2 (11:22)
[2020-09-20] MEDS ORDERED: HYDROmorphone 1 MG/ML 1 ML SYRINGE IVP PRN (12:09)
--- NOTE | 2020-09-20 12:09 | P.OP ---
Date of Procedure: 09/20/20 Preoperative Diagnosis: Small bowel obstruction Postoperative Diagnosis: Adhesions Gastric outlet obstruction Procedure(s) Performed: Lysis of adhesions Conversion of loop gastrojejunostomy to Darek-en-Y gastric jejunostomy Anesthesia: JUSTIN Surgeon: Cesar Medeiros Estimated Blood Loss (ml): 25 Pathology: none sent Condition: stable Disposition: PACU Description of Procedure: The patient's placed on the operating table in the supine position. She received general anesthesia. Her abdomen was prepped and draped usual fashion. Skin table was removed. The fascia was opened. The Bookwalter specimen. The patient stomach was examined. The cervix was insufflated with 1000 mL of methylene blue normal saline. The uterine. Limbs of gastric ulcer obstructed using a hydroureter. There appeared to be no evidence of obstruction of the actual gastric adjusted. There appeared to be preferential filling of the afferent limb. At this point the afferent limb was then transected next to the gastrojejunostomy. With the MCKAY stapler. And then saline could be seen entering into the gastric adjustment filling the inferotemporal limb. At this point a sinus side functional and stabilized was created between the afferent limb and the uterine limb approximately 20 cm distal to the gastric jejunostomy. Thus converting the anastomosis to a Darek-en-Y type anastomosis. 3-0 GI silk sutures used as a crotch stitch. The abdomen was irrigated there is no bleeding seen. The fascia closed with looped #1 PDS suture. Skin was closed sav. Patient top she will was sent to recovery in stable condition.
[2020-09-20] MEDS: MORPHINE SULFATE 4 MG/ML SYRINGE IVP ONE ×2 (12:39→12:45)
[2020-09-20] MEDS: MORPHINE SULFATE 4 MG/ML SYRINGE IVP PRN ×2 (13:02→13:05)
[2020-09-20] MEDS ORDERED: ACETAMINOPHEN IV (For NPO) 1,000 MG in EMPTY BAG 1 BAG IVPB PRN (15:28)
[2020-09-20] MEDS: MORPHINE SULFATE 2 MG/ML SYRINGE IVP PRN ×2 (16:20→23:17)
--- NOTE | 2020-09-20 16:44 | P.PN ---
Subjective Patient is a 75-year-old female with known history of hypertension, hyperlipidemia, osteoarthritis, coronary artery disease with history of stent pl acement, gait dysfunction and history of Covid pneumonia and has been on oxygen since then, recent history of gastro jejunostomy for gastric outlet obstruction on 09/01/2020 and was discharged to extended care facility on 09/13/2020. She has been doing well until 3 days ago. Started vomiting dark-colored/coffee-ground liquids. Unable to tolerate any oral diet. No bowel meds for the past 3 days. Mild abdominal pain and low-grade fever as per patient. On admission blood pressure was 100/70 pulse 134 and respiration 24 and pulse ox 97% on room air. Chest x-ray showed presence of 8 below the hemidiaphragm probably air within the stomach and interposed bowel. However we are unable to entirely exclude mild free intraperitoneal air.. CT of the abdomen pelvis was done which showed there is swirl pattern within a transition in the right upper quadrant small bowel compatible with the volvulus. Diverticulosis without acute diverticulitis. Laboratory data showed WBC 16.7, hemoglobin 11.8 and platelets 655 sodium 141 potassium 3.7 chloride 83 bicarb is 37 BUN 27 creatinine 1.01 lactic acid 3.7 AST 40 ALT 33 alk phos 352 and troponin 0 0.102 gastric occult blood is positive. COVID-19 PCR not detected.. Patient had EGD 08/25/2020 showed mild gastritis and LA grade B distal esophagitis. 09/18/2020 Patient is still having NG tube drainage and patient the NG tube is in the first part of the creatinine from still has dilated bowel loops probably this. Need to withdraw NG tube a bit. 09/19/2020 Patient is passing gas but I can barely hear any bowel sounds still has an NG tube which drained around 300 mL last night nothing today. Patient is using ice chips. Hemoglobin did drop to 6.3 receiving 1 unit of PRBC transfusion. Patient doesn't have any coffee-ground any emesis any more. 09/20/2020 Patient underwent laparotomy found to have gastric outlet obstructions and adhesions patient underwent lysis of adhesion and conversion of loop gastrojejunostomy to Darek-en-Y gastrojejunostomy. Patient is hypotensive and tachycardic will give a bolus of IV fluids continue with IV fluids for now. Patient still has an NG tube in place. Patient is on opiates concerning her age and comorbidities will discontinue opiates and patient was started on Tylenol IV for pain. Constitutional: Denied any fatigue denied any fever. Cardio vascular: denied any chest pain, palpitations Gastrointestinal denied any nausea vomiting Pulmonary: Denied any shortness of breath cough Neurologic denied any new focal deficits All inpatient medications were reviewed and appropriate changes in these medica tions as dictated in the interval history and assessment and plan. Objective - Vital Signs Vital signs: Vital Signs Temp 97.6 F 09/20/20 16:00 Pulse 112 H 09/20/20 16:00 Resp 16 09/20/20 16:00 BP 112/68 09/20/20 16:00 Pulse Ox 100 09/20/20 16:00 Intake & Output 09/19/20 09/20/20 09/20/20 18:59 06:59 18:59 Intake Total 1274 2075 Output Total 1400 400 625 Balance -126 -400 1450 Weight 53 kg Intake: IV 975 Intake, IV Titration 1100 Amount Sodium Chloride 0.9% 1, 600 000 ml @ 100 mls/hr IV . Q10H9M ELMER with Potassium Chloride 30 meq Rx#: [id number] Sodium Chloride 0.9% 1, 500 000 ml @ 999 mls/hr IV . Q1H1M ONE Rx#:[id number] Blood Product 1274 Rc Pheresis 2 As3 Unit 274 [id number] Output: Gastric Drainage 400 200 Urine 1000 400 400 Estimated Blood Loss 25 Other: Voiding Method Indwelling Catheter Indwelling Catheter Indwelling Catheter - Exam PHYSICAL EXAMINATION: GENERAL: The patient is alert and oriented x3, not in any acute distress. Thin built HEENT: Pupils are round and equally reacting to light. EOMI. No scleral icterus. No conjunctival pallor. Normocephalic, atraumatic. No pharyngeal erythema. No thyromegaly. CARDIOVASCULAR: S1 and S2 present. No murmurs, rubs, or gallops. PULMONARY: Chest is clear to auscultation, no wheezing or crackles. ABDOMEN: Soft, nontender, nondistended, sluggish bowel sounds No palpable organomegaly. Surgical site areas appear to be clean MUSCULOSKELETAL: No joint swelling or deformity. EXTREMITIES: No cyanosis, clubbing, or pedal edema. NEUROLOGICAL: Gross neurological examination did not reveal any focal deficits. SKIN: No rashes. - Labs CBC & Chem 7: 09/20/20 08:02 09/20/20 08:02 Labs: Abnormal Lab Results - Last 24 Hours (Table) 09/20/20 09/20/20 Range/Units 08:02 08:02 RBC 2.49 L (3.80-5.40) m/uL Hgb 7.4 L (11.4-16.0) gm/dL Hct 22.2 L (34.0-46.0) % RDW 17.0 H (11.5-15.5) % Sodium 136 L (137-145) mmol/L Creatinine 0.50 L (0.52-1.04) mg/dL Glucose 52 L (74-99) mg/dL Calcium 8.0 L (8.4-10.2) mg/dL Microbiology - Last 24 Hours (Table) 09/17/20 13:00 Blood Culture - Preliminary Blood No Growth after 72 hours 09/17/20 13:25 Blood Culture - Preliminary Blood No Growth after 72 hours Assessment and Plan Plan: gastric outlet obstruction: Patient underwent laparotomy and additional lysis, she still has NG tube in place Possible Coffee-ground emesis possible upper GI bleed. Significant drop in hemoglobin during this hospital physician to see multiple PRBC transfusions present hemoglobin is around 7.3.monitor clinically continue with Protonix Possible acute blood loss anemia Hypotension: Due to intravascular volume depletion patient will be continued on IV fluids as mentioned above status post gastrojejunostomy on 09/01/2020 for gastric outlet obstruction. -Sinus tachycardia secondary to intravascular depletion coronary artery disease history of stent placement hyperlipidemia GERD osteoarthritis history of COVID-19 pneumonia in July 2020 DVT prophylaxis with SCDs.
[2020-09-21] MEDS: MORPHINE SULFATE 2 MG/ML SYRINGE IVP PRN ×6 (02:58→23:00)
[2020-09-21] MEDS: SODIUM CHLORIDE 0.9% 1,000 ML with POTASSIUM CHLORIDE 30 MEQ IV SCH ×4 (02:59→13:01)
[2020-09-21 07:23] LABS: Anisocytosis Slight; HCT 24.8 % (34.0-46.0); HGB 7.8 gm/dL (11.4-16.0); Hypochromasia Marked; MCHC 31.4 g/dL (31.0-37.0); MCV 92.4 fL (80.0-100.0); Mean Platelet Volume 9.3; Platelet Count 337 k/uL (150-450); Poikilocytosis Slight; RBC 2.68 m/uL (3.80-5.40); RDW 17.4 % (11.5-15.5); WBC 9.7 k/uL (3.8-10.6)
[2020-09-21] MEDS: SYMBICORT 80-4.5 MCG INHALER INHALATION SCH ×2 (07:34→19:20)
[2020-09-21] MEDS: IPRATROPIUM-ALBUTEROL 3 ML NEB INHALATION SCH ×3 (07:34→19:20)
[2020-09-21 07:40] LABS: African American GFR (CKD) >90 (>60 ml/min/1.73 sqM); Anion Gap 12 mmol/L; Blood Urea Nitrogen 9 mg/dL (7-17); Calcium 8.1 mg/dL (8.4-10.2); Carbon Dioxide 16 mmol/L (22-30); Chloride 111 mmol/L (98-107); Glucose 62 mg/dL (74-99); Non-African American GFR(CKD) >90 (>60 ml/min/1.73 sqM); Potassium 4.6 mmol/L (3.5-5.1); Sodium 139 mmol/L (137-145)
[2020-09-21] MEDS: OXYBUTYNIN CHLORIDE 5 MG TAB PO SCH ×3 (08:45→19:41)
[2020-09-21] MEDS: FOLIC ACID 1 MG TAB PO SCH (08:45)
[2020-09-21] MEDS: ZINC SULFATE 220 MG CAP PO SCH (08:47)
[2020-09-21] MEDS: THIAMINE 100 MG TAB PO SCH (08:47)
[2020-09-21] MEDS: PANTOPRAZOLE 40 MG/10 ML VIAL IV SCH ×2 (08:57→20:17)
--- NOTE | 2020-09-21 13:05 | P.PN ---
Subjective Progress Note Date: 09/21/20 CHIEF COMPLAINT: Vomiting HISTORY OF PRESENT ILLNESS: Patient is status post lysis of adhesions and conve rsion of Loop gastrojejunostomy to Daerk-en-Y gastric jejunostomy for adhesions and gastric outlet obstruction. Patient lying in bed comfortably. She does complain of abdominal pain. But does report that is controlled with pain medication. She did have some nausea. Denies any flatus or BM. NG tube with 200 bilious output. She is afebrile. She had has mild tachycardia. WBC 9.7 hemoglobin 7.8 PHYSICAL EXAM: VITAL SIGNS: Reviewed. GENERAL: Well-developed in no acute distress. HEENT: No sclera icterus. Extraocular movements grossly intact. Moist buccal mucosa. Head is atraumatic, normocephalic. ABDOMEN: Soft. Nondistended. Tender incision site. Incisional dressing clean dry and intact. NEUROLOGIC: Alert and oriented. Cranial nerves II through XII grossly intact. ASSESSMENT: 1. Adhesions and gastric outlet obstruction status post lysis of adhesions and conversion of Loop gastrojejunostomy to Darek-en-Y gastric jejunostomy PLAN: -Continue NG tube for decompression -Keep patient nothing by mouth -Continue pain medication as needed -Continue IV fluids -Incentive spirometer ordered -PT OT following -GI prophylaxis Protonix and DVT prophylaxis SCDs Physician Auto Glass Technician note has been reviewed by physician. Signing provider agrees with the documented findings, assessment, and plan of care. Objective - Vital Signs Vital signs: Vital Signs Temp 98.4 F 09/21/20 11:56 Pulse 104 H 09/21/20 11:56 Resp 16 09/21/20 11:56 BP 125/81 09/21/20 11:56 Pulse Ox 96 09/21/20 11:56 Intake & Output 09/20/20 09/21/20 09/21/20 18:59 06:59 18:59 Intake Total 2075 100 Output Total 625 300 Balance 1450 -300 100 Weight 53.5 kg Intake: IV 975 Intake, IV Titration 1100 100 Amount Sodium Chloride 0.9% 1, 600 100 000 ml @ 100 mls/hr IV . Q10H9M ELMER with Potassium Chloride 30 meq Rx#: [id number] Sodium Chloride 0.9% 1, 500 000 ml @ 999 mls/hr IV . Q1H1M ONE Rx#:[id number] Output: Gastric Drainage 200 Urine 400 300 Estimated Blood Loss 25 Other: Voiding Method Indwelling Catheter Indwelling Catheter Indwelling Catheter - Labs CBC & Chem 7: 09/21/20 07:04 09/21/20 07:04 Labs: Abnormal Lab Results - Last 24 Hours (Table) 09/21/20 09/21/20 Range/Units 07:04 07:04 RBC 2.68 L (3.80-5.40) m/uL Hgb 7.8 L (11.4-16.0) gm/dL Hct 24.8 L (34.0-46.0) % RDW 17.4 H (11.5-15.5) % Chloride 111 H (98-107) mmol/L Carbon Dioxide 16 L (22-30) mmol/L Glucose 62 L (74-99) mg/dL Calcium 8.1 L (8.4-10.2) mg/dL Microbiology - Last 24 Hours (Table) 09/17/20 13:00 Blood Culture - Preliminary Blood No Growth after 72 hours 09/17/20 13:25 Blood Culture - Preliminary Blood No Growth after 72 hours
--- NOTE | 2020-09-21 13:31 | P.PN ---
Subjective Patient is a 75-year-old female with known history of hypertension, hyperlipidemia, osteoarthritis, coronary artery disease with history of stent pl acement, gait dysfunction and history of Covid pneumonia and has been on oxygen since then, recent history of gastro jejunostomy for gastric outlet obstruction on 09/01/2020 and was discharged to extended care facility on 09/13/2020. She has been doing well until 3 days ago. Started vomiting dark-colored/coffee-ground liquids. Unable to tolerate any oral diet. No bowel meds for the past 3 days. Mild abdominal pain and low-grade fever as per patient. On admission blood pressure was 100/70 pulse 134 and respiration 24 and pulse ox 97% on room air. Chest x-ray showed presence of 8 below the hemidiaphragm probably air within the stomach and interposed bowel. However we are unable to entirely exclude mild free intraperitoneal air.. CT of the abdomen pelvis was done which showed there is swirl pattern within a transition in the right upper quadrant small bowel compatible with the volvulus. Diverticulosis without acute diverticulitis. Laboratory data showed WBC 16.7, hemoglobin 11.8 and platelets 655 sodium 141 potassium 3.7 chloride 83 bicarb is 37 BUN 27 creatinine 1.01 lactic acid 3.7 AST 40 ALT 33 alk phos 352 and troponin 0 0.102 gastric occult blood is positive. COVID-19 PCR not detected.. Patient had EGD 08/25/2020 showed mild gastritis and LA grade B distal esophagitis. 09/18/2020 Patient is still having NG tube drainage and patient the NG tube is in the first part of the creatinine from still has dilated bowel loops probably this. Need to withdraw NG tube a bit. 09/19/2020 Patient is passing gas but I can barely hear any bowel sounds still has an NG tube which drained around 300 mL last night nothing today. Patient is using ice chips. Hemoglobin did drop to 6.3 receiving 1 unit of PRBC transfusion. Patient doesn't have any coffee-ground any emesis any more. 09/20/2020 Patient underwent laparotomy found to have gastric outlet obstructions and adhesions patient underwent lysis of adhesion and conversion of loop gastrojejunostomy to Darek-en-Y gastrojejunostomy. Patient is hypotensive and tachycardic will give a bolus of IV fluids continue with IV fluids for now. Patient still has an NG tube in place. Patient is on opiates concerning her age and comorbidities will discontinue opiates and patient was started on Tylenol IV for pain. 09/21/2020 Patient blood pressure improved patient is passing gas although patient is bit hyperchloremic because of which, switch IV fluids to lactated Ringer's and decrease the rate. Still has an NG tube without any significant drainage today Constitutional: Denied any fatigue denied any fever. Cardio vascular: denied any chest pain, palpitations Gastrointestinal denied any nausea vomiting Pulmonary: Denied any shortness of breath cough Neurologic denied any new focal deficits All inpatient medications were reviewed and appropriate changes in these medications as dictated in the interval history and assessment and plan. Objective - Vital Signs Vital signs: Vital Signs Temp 98.4 F 09/21/20 11:56 Pulse 104 H 09/21/20 11:56 Resp 16 09/21/20 11:56 BP 125/81 09/21/20 11:56 Pulse Ox 96 09/21/20 11:56 Intake & Output 09/20/20 09/21/20 09/21/20 18:59 06:59 18:59 Intake Total 2075 100 Output Total 625 300 Balance 1450 -300 100 Weight 53.5 kg Intake: IV 975 Intake, IV Titration 1100 100 Amount Sodium Chloride 0.9% 1, 600 100 000 ml @ 100 mls/hr IV . Q10H9M ELMER with Potassium Chloride 30 meq Rx#: [id number] Sodium Chloride 0.9% 1, 500 000 ml @ 999 mls/hr IV . Q1H1M ONE Rx#:[id number] Output: Gastric Drainage 200 Urine 400 300 Estimated Blood Loss 25 Other: Voiding Method Indwelling Catheter Indwelling Catheter Indwelling Catheter - Exam PHYSICAL EXAMINATION: GENERAL: The patient is alert and oriented x3, not in any acute distress. Thin built HEENT: Pupils are round and equally reacting to light. EOMI. No scleral icterus. No conjunctival pallor. Normocephalic, atraumatic. No pharyngeal erythema. No thyromegaly. CARDIOVASCULAR: S1 and S2 present. No murmurs, rubs, or gallops. PULMONARY: Chest is clear to auscultation, no wheezing or crackles. ABDOMEN: Soft, nontender, nondistended, sluggish bowel sounds No palpable organomegaly. Surgical site areas appear to be clean MUSCULOSKELETAL: No joint swelling or deformity. EXTREMITIES: No cyanosis, clubbing, or pedal edema. NEUROLOGICAL: Gross neurological examination did not reveal any focal deficits. SKIN: No rashes. - Labs CBC & Chem 7: 09/21/20 07:04 09/21/20 07:04 Labs: Abnormal Lab Results - Last 24 Hours (Table) 09/21/20 09/21/20 Range/Units 07:04 07:04 RBC 2.68 L (3.80-5.40) m/uL Hgb 7.8 L (11.4-16.0) gm/dL Hct 24.8 L (34.0-46.0) % RDW 17.4 H (11.5-15.5) % Chloride 111 H (98-107) mmol/L Carbon Dioxide 16 L (22-30) mmol/L Glucose 62 L (74-99) mg/dL Calcium 8.1 L (8.4-10.2) mg/dL Microbiology - Last 24 Hours (Table) 09/17/20 13:00 Blood Culture - Preliminary Blood No Growth after 72 hours 09/17/20 13:25 Blood Culture - Preliminary Blood No Growth after 72 hours Assessment and Plan Plan: gastric outlet obstruction: Patient underwent laparotomy and additional lysis, she still has NG tube in place Possible Coffee-ground emesis possible upper GI bleed. Significant drop in hemoglobin during this hospital physician to see multiple PRBC transfusions present hemoglobin is around 7.3.monitor clinically continue with Protonix Possible acute blood loss anemia Hypotension: Due to intravascular volume depletion patient will be continued on IV fluids as mentioned above status post gastrojejunostomy on 09/01/2020 for gastric outlet obstruction. -Sinus tachycardia secondary to intravascular depletion coronary artery disease history of stent placement hyperlipidemia GERD osteoarthritis history of COVID-19 pneumonia in July 2020 DVT prophylaxis with SCDs.
[2020-09-21] MEDS: LACTATED RINGERS 1,000 ML IV SCH (13:36)
[2020-09-22] MEDS: MORPHINE SULFATE 2 MG/ML SYRINGE IVP PRN ×2 (03:00→06:29)
[2020-09-22] MEDS: LACTATED RINGERS 1,000 ML IV SCH (03:11)
[2020-09-22 08:10] LABS: Anisocytosis Slight; Basophils % (A) 0 %; Eosinophils # (A) 0.1 k/uL (0-0.7); Eosinophils % (A) 1 %; HCT 21.1 % (34.0-46.0); Hypochromasia Marked; Lymphocytes # (A) 0.8 k/uL (1.0-4.8); Lymphocytes % (A) 12 %; MCH 29.2 pg (25.0-35.0); MCHC 31.7 g/dL (31.0-37.0); MCV 91.9 fL (80.0-100.0); Mean Platelet Volume 8.7; Monocytes # (A) 0.4 k/uL (0-1.0); Monocytes % (A) 7 %; Neutrophils # (A) 5.2 k/uL (1.3-7.7); Neutrophils % (A) 79 %; Platelet Count 348 k/uL (150-450); Poikilocytosis Slight; RDW 17.5 % (11.5-15.5); WBC 6.5 k/uL (3.8-10.6)
[2020-09-22 08:18] LABS: African American GFR (CKD) >90 (>60 ml/min/1.73 sqM); Anion Gap 14 mmol/L; Blood Urea Nitrogen 6 mg/dL (7-17); Calcium 8.5 mg/dL (8.4-10.2); Carbon Dioxide 14 mmol/L (22-30); Chloride 114 mmol/L (98-107); Glucose 61 mg/dL (74-99); Non-African American GFR(CKD) >90 (>60 ml/min/1.73 sqM); Potassium 3.5 mmol/L (3.5-5.1); Sodium 142 mmol/L (137-145)
[2020-09-22 08:28] LABS: HGB 6.7 gm/dL (11.4-16.0)
[2020-09-22] MEDS: SYMBICORT 80-4.5 MCG INHALER INHALATION SCH ×2 (09:08→21:49)
[2020-09-22] MEDS: IPRATROPIUM-ALBUTEROL 3 ML NEB INHALATION SCH ×3 (09:08→21:49)
[2020-09-22] MEDS: PANTOPRAZOLE 40 MG/10 ML VIAL IV SCH ×2 (09:14→20:53)
[2020-09-22] MEDS: THIAMINE 100 MG TAB PO SCH (09:14)
[2020-09-22] MEDS: FOLIC ACID 1 MG TAB PO SCH (09:14)
[2020-09-22] MEDS: OXYBUTYNIN CHLORIDE 5 MG TAB PO SCH ×3 (09:14→20:53)
[2020-09-22] MEDS: ZINC SULFATE 220 MG CAP PO SCH (09:14)
[2020-09-22 09:27] LABS: Glucose,Whole Blood 66 mg/dL (75-99)
[2020-09-22] MEDS: DEXTROSE 5% IN WATER 1,000 ML IV SCH (10:33)
--- NOTE | 2020-09-22 11:35 | P.PN ---
Subjective Progress Note Date: 09/22/20 CHIEF COMPLAINT: Vomiting HISTORY OF PRESENT ILLNESS: Patient is status post lysis of adhesions and conve rsion of Loop gastrojejunostomy to Darek-en-Y gastric jejunostomy for adhesions and gastric outlet obstruction. Patient lying in bed comfortably. She does complain of abdominal pain. But does report that is controlled with pain medication. She did have some nausea. Denies any flatus or BM. NG tube with 200 bilious output this morning. She is afebrile. Tachycardia resolved. WBC 6.5 hemoglobin 6.7 platelets 348. Sodium 142 potassium 3.5 CO2 14 creatinine 0.43 glucose 66. Medicine service to adjust fluids to D5 for her low sugar. She is scheduled for 1 unit of blood for hemoglobin of 6.7 PHYSICAL EXAM: VITAL SIGNS: Reviewed. GENERAL: Well-developed in no acute distress. HEENT: No sclera icterus. Extraocular movements grossly intact. Moist buccal mucosa. Head is atraumatic, normocephalic. ABDOMEN: Soft. Nondistended. Tender incision site. Incisional dressing clean dry and intact. NEUROLOGIC: Alert and oriented. Cranial nerves II through XII grossly intact. ASSESSMENT: 1. Adhesions and gastric outlet obstruction status post lysis of adhesions and conversion of Loop gastrojejunostomy to Darek-en-Y gastric jejunostomy 2. Anemia likely due to dilution from IV fluids PLAN: -Patient receiving 1 unit of blood -Consult dietitian for TPN for nutrition support -Ordered PICC line placement for TPN -Continue NG tube for decompression -Keep patient nothing by mouth -Continue pain medication as needed -Continue IV fluids -Incentive spirometer ordered -PT OT following -GI prophylaxis Protonix and DVT prophylaxis SCDs Physician Antenna Design Engineer note has been reviewed by physician. Signing provider agrees with the documented findings, assessment, and plan of care. Objective - Vital Signs Vital signs: Vital Signs Temp 97.9 F 09/22/20 08:00 Pulse 95 09/22/20 09:19 Resp 18 09/22/20 08:00 BP 166/67 09/22/20 08:00 Pulse Ox 97 09/22/20 08:00 Intake & Output 09/21/20 09/22/20 09/22/20 18:59 06:59 18:59 Intake Total 850 0 Output Total 700 275 150 Balance 150 -275 -150 Weight 55 kg 55 kg Intake: Intake, IV Titration 850 Amount Lactated Ringers 1,000 ml 150 @ 75 mls/hr IV .[id number] ELMER Rx#:[id number] Sodium Chloride 0.9% 1, 700 000 ml @ 100 mls/hr IV . Q10H9M ELMER with Potassium Chloride 30 meq Rx#: [id number] Oral 0 Output: Gastric Drainage 150 150 Urine 550 275 Other: Voiding Method Indwelling Catheter Indwelling Catheter - Labs CBC & Chem 7: 09/22/20 07:40 09/22/20 07:40 Labs: Abnormal Lab Results - Last 24 Hours (Table) 09/22/20 09/22/20 09/22/20 Range/Units 07:40 07:40 09:20 RBC 2.30 L (3.80-5.40) m/uL Hgb 6.7 L* (11.4-16.0) gm/dL Hct 21.1 L (34.0-46.0) % RDW 17.5 H (11.5-15.5) % Lymphocytes # 0.8 L (1.0-4.8) k/uL Chloride 114 H (98-107) mmol/L Carbon Dioxide 14 L (22-30) mmol/L BUN 6 L (7-17) mg/dL Creatinine 0.43 L (0.52-1.04) mg/dL Glucose 61 L (74-99) mg/dL POC Glucose (mg/dL) (75-99) mg/dL Crossmatch See Detail 09/22/20 Range/Units 09:26 RBC (3.80-5.40) m/uL Hgb (11.4-16.0) gm/dL Hct (34.0-46.0) % RDW (11.5-15.5) % Lymphocytes # (1.0-4.8) k/uL Chloride (98-107) mmol/L Carbon Dioxide (22-30) mmol/L BUN (7-17) mg/dL Creatinine (0.52-1.04) mg/dL Glucose (74-99) mg/dL POC Glucose (mg/dL) 66 L (75-99) mg/dL Crossmatch Microbiology - Last 24 Hours (Table) 09/17/20 13:00 Blood Culture - Preliminary Blood No Growth after 96 hours 09/17/20 13:25 Blood Culture - Preliminary Blood No Growth after 96 hours
[2020-09-22] MEDS ORDERED: FUROSEMIDE 10 MG/ML 2 ML VIAL IV ONE (12:00)
--- NOTE | 2020-09-22 14:11 | P.PN ---
Subjective Patient is a 75-year-old female with known history of hypertension, hyperlipidemia, osteoarthritis, coronary artery disease with history of stent pl acement, gait dysfunction and history of Covid pneumonia and has been on oxygen since then, recent history of gastro jejunostomy for gastric outlet obstruction on 09/01/2020 and was discharged to extended care facility on 09/13/2020. She has been doing well until 3 days ago. Started vomiting dark-colored/coffee-ground liquids. Unable to tolerate any oral diet. No bowel meds for the past 3 days. Mild abdominal pain and low-grade fever as per patient. On admission blood pressure was 100/70 pulse 134 and respiration 24 and pulse ox 97% on room air. Chest x-ray showed presence of 8 below the hemidiaphragm probably air within the stomach and interposed bowel. However we are unable to entirely exclude mild free intraperitoneal air.. CT of the abdomen pelvis was done which showed there is swirl pattern within a transition in the right upper quadrant small bowel compatible with the volvulus. Diverticulosis without acute diverticulitis. Laboratory data showed WBC 16.7, hemoglobin 11.8 and platelets 655 sodium 141 potassium 3.7 chloride 83 bicarb is 37 BUN 27 creatinine 1.01 lactic acid 3.7 AST 40 ALT 33 alk phos 352 and troponin 0 0.102 gastric occult blood is positive. COVID-19 PCR not detected.. Patient had EGD 08/25/2020 showed mild gastritis and LA grade B distal esophagitis. 09/18/2020 Patient is still having NG tube drainage and patient the NG tube is in the first part of the creatinine from still has dilated bowel loops probably this. Need to withdraw NG tube a bit. 09/19/2020 Patient is passing gas but I can barely hear any bowel sounds still has an NG tube which drained around 300 mL last night nothing today. Patient is using ice chips. Hemoglobin did drop to 6.3 receiving 1 unit of PRBC transfusion. Patient doesn't have any coffee-ground any emesis any more. 09/20/2020 Patient underwent laparotomy found to have gastric outlet obstructions and adhesions patient underwent lysis of adhesion and conversion of loop gastrojejunostomy to Darek-en-Y gastrojejunostomy. Patient is hypotensive and tachycardic will give a bolus of IV fluids continue with IV fluids for now. Patient still has an NG tube in place. Patient is on opiates concerning her age and comorbidities will discontinue opiates and patient was started on Tylenol IV for pain. 09/21/2020 Patient blood pressure improved patient is passing gas although patient is bit hyperchloremic because of which, switch IV fluids to lactated Ringer's and decrease the rate. Still has an NG tube without any significant drainage today. 09/22/2020 Patient doesn't have any output via NG tube probably this can be removed. Patient is passing gas she say she has had bowel movement unsure about this and I need to verify from the nursing staff. Since hemoglobin did go down to 6.8 probably blood loss anemia from surgery patient will be transfused 1 unit of PRBC patient is requiring oxygen today we'll obtain a chest x-ray patient was receiving IV fluids and patient is presently on D5 water. Patient is bit hyperchloremic. His chest x-ray shows pulmonary edema IV fluids will be discontinued and patient will be given a dose of Lasix. Constitutional: Denied any fatigue denied any fever. Cardio vascular: denied any chest pain, palpitations Gastrointestinal denied any nausea vomiting Pulmonary: Denied any shortness of breath cough Neurologic denied any new focal deficits All inpatient medications were reviewed and appropriate changes in these medications as dictated in the interval history and assessment and plan. Objective - Vital Signs Vital signs: Vital Signs Temp 98.1 F 09/22/20 13:17 Pulse 91 09/22/20 13:20 Resp 18 09/22/20 13:17 BP 135/73 09/22/20 13:17 Pulse Ox 94 L 09/22/20 12:47 Intake & Output 09/21/20 09/22/20 09/22/20 18:59 06:59 18:59 Intake Total 850 0 Output Total 700 275 150 Balance 150 -275 -150 Weight 55 kg 55 kg Intake: Intake, IV Titration 850 Amount Lactated Ringers 1,000 ml 150 @ 75 mls/hr IV .[id number] [facility] Rx#:[id number] Sodium Chloride 0.9% 1, 700 000 ml @ 100 mls/hr IV . Q10H9M [facility] with Potassium Chloride 30 meq Rx#: [id number] Oral 0 Blood Product 0 Rc As-1 Unit 0 [id number] Output: Gastric Drainage 150 150 Urine 550 275 Other: Voiding Method Indwelling Catheter Indwelling Catheter Indwelling Catheter - Exam PHYSICAL EXAMINATION: GENERAL: The patient is alert and oriented x3, not in any acute distress. Thin built HEENT: Pupils are round and equally reacting to light. EOMI. No scleral icterus. No conjunctival pallor. Normocephalic, atraumatic. No pharyngeal erythema. No th yromegaly. CARDIOVASCULAR: S1 and S2 present. No murmurs, rubs, or gallops. PULMONARY: Chest is clear to auscultation, no wheezing or crackles. ABDOMEN: Soft, nontender, nondistended, sluggish bowel sounds No palpable organomegaly. Surgical site areas appear to be clean MUSCULOSKELETAL: No joint swelling or deformity. EXTREMITIES: No cyanosis, clubbing, or pedal edema. NEUROLOGICAL: Gross neurological examination did not reveal any focal deficits. SKIN: No rashes. - Labs CBC & Chem 7: 09/22/20 07:40 09/22/20 07:40 Labs: Abnormal Lab Results - Last 24 Hours (Table) 09/22/20 09/22/20 09/22/20 Range/Units 07:40 07:40 09:20 RBC 2.30 L (3.80-5.40) m/uL Hgb 6.7 L* (11.4-16.0) gm/dL Hct 21.1 L (34.0-46.0) % RDW 17.5 H (11.5-15.5) % Lymphocytes # 0.8 L (1.0-4.8) k/uL Chloride 114 H (98-107) mmol/L Carbon Dioxide 14 L (22-30) mmol/L BUN 6 L (7-17) mg/dL Creatinine 0.43 L (0.52-1.04) mg/dL Glucose 61 L (74-99) mg/dL POC Glucose (mg/dL) (75-99) mg/dL Crossmatch See Detail 09/22/20 Range/Units 09:26 RBC (3.80-5.40) m/uL Hgb (11.4-16.0) gm/dL Hct (34.0-46.0) % RDW (11.5-15.5) % Lymphocytes # (1.0-4.8) k/uL Chloride (98-107) mmol/L Carbon Dioxide (22-30) mmol/L BUN (7-17) mg/dL Creatinine (0.52-1.04) mg/dL Glucose (74-99) mg/dL POC Glucose (mg/dL) 66 L (75-99) mg/dL Crossmatch Microbiology - Last 24 Hours (Table) 09/17/20 13:00 Blood Culture - Preliminary Blood No Growth after 96 hours 09/17/20 13:25 Blood Culture - Preliminary Blood No Growth after 96 hours Assessment and Plan Plan: gastric outlet obstruction: Patient underwent laparotomy and additional lysis, she still has NG tube in place Possible Coffee-ground emesis possible upper GI bleed. Significant drop in hemoglobin during this hospital physician to see multiple PRBC transfusions present hemoglobin is around 7.3.monitor clinically continue with Protonix acute blood loss anemia Hypotension: Due to intravascular volume depletion rule out patient appears to be bit volume overloaded today status post gastrojejunostomy on 09/01/2020 for gastric outlet obstruction. -Sinus tachycardia secondary to intravascular depletion, improved now coronary artery disease history of stent placement hyperlipidemia GERD osteoarthritis history of COVID-19 pneumonia in July 2020 DVT prophylaxis with SCDs.
[2020-09-22] MEDS ORDERED: LIDOCAINE 1% INJ 10MG/ML (20 ML MDV) ONE (14:42)
[2020-09-22] MEDS ORDERED: LIDOCAINE 1% INJ 10MG/ML (20 ML MDV) SQ ONE (15:05)
--- NOTE | 2020-09-22 16:09 | IR ---
EXAMINATION TYPE: IR cvc insert >=5 years DATE OF EXAM: 09/22/2020 COMPARISON: NONE CLINICAL HISTORY: Needs long-term intravenous access for total parenteral nutrition. PROCEDURE: Hand hygiene obtained with soap and water and alcohol-based hand rub. After informed consent, the skin overlying the right basilic vein was localized with ultrasound and n oted to be compressible and patent. An ultrasound image was obtained and submitted on the patient's chart. The overlying skin was prepped and draped and Lidocaine was used for local anesthesia. A ski n faith was made with a scalpel. Access was gained to the vein under ultrasound guidance with a 21 ga uge needle and a 0.018 inch wire was advanced. Access site was dilated with Peel-Away sheath and cat heter tailored to the appropriate length and advanced such that the distal tip is at the cavoatrial j unction. Spot image was obtained verifying placement. Catheter was fixed to the skin and a sterile dressing was placed following hemostasis. Catheter was aspirated and flushed with saline. Patient w as discharged in stable condition without complication.Maximal barrier technique is utilized. Ultras ound image is documented on the chart. Ultrasound used with sterile technique. Fluoro time and fluoroscopic images submitted to document procedure: 35 intraoperative C-arm images, 0.4 minutes fluoroscopy time IMPRESSION: STATUS POST ULTRASOUND AND FLUOROSCOPIC GUIDED PICC LINE PLACEMENT, READY FOR USE. THIS PROCEDURE WAS PERFORMED BY THE UNDERSIGNED.
[2020-09-22 16:24] LABS: Ionized Calcium 5.4 mg/dL (4.5-5.3)
--- NOTE | 2020-09-22 16:31 | XR ---
EXAMINATION TYPE: XR chest 1V portable DATE OF EXAM: 09/22/2020 COMPARISON: Prior chest x-ray 09/17/2020 HISTORY: Difficulty breathing TECHNIQUE: Single frontal view of the chest is obtained. FINDINGS: There is been interval placement of a right-sided PICC line, distal tip is at the cavoatri al junction. There is an NG tube present coursing towards the stomach, distal tip is not included on exam. Basilar density is present on the right, right hemidiaphragm is obscured as is the right heart border. There is no evident pneumothorax. Heart is likely stable accounting for differences in techni que. Aorta is dense. There are overlying artifacts. Probable distended gas-filled loop of bowel benea th the right hemidiaphragm noted. IMPRESSION: Probable right lower lobe atelectasis versus pneumonia and associated effusion
[2020-09-22 16:32] LABS: Albumin 2.3 g/dL (3.5-5.0); Magnesium 1.5 mg/dL (1.6-2.3)
[2020-09-22 17:35] LABS: Anisocytosis Slight; HCT 32.2 % (34.0-46.0); Hypochromasia Marked; MCH 28.8 pg (25.0-35.0); MCHC 30.9 g/dL (31.0-37.0); MCV 93.2 fL (80.0-100.0); Mean Platelet Volume 9.3; Platelet Count 320 k/uL (150-450); Poikilocytosis Slight; RBC 3.45 m/uL (3.80-5.40); RDW 16.3 % (11.5-15.5); WBC 7.7 k/uL (3.8-10.6)
[2020-09-22 17:55] LABS: HGB 9.9 gm/dL (11.4-16.0)
[2020-09-22] MEDS: MVI, ADULT NO.4 WITH VIT K 10 ML, TRACE (CONC-1ML/DOSE) 1 ML, SODIUM PHOSPHATE 15 MMOL,... IV SCH ×7 (21:41)
[2020-09-23 06:14] LABS: Glucose,Whole Blood 141 mg/dL (75-99)
[2020-09-23] MEDS: IPRATROPIUM-ALBUTEROL 3 ML NEB INHALATION SCH ×3 (07:24→19:16)
[2020-09-23] MEDS: SYMBICORT 80-4.5 MCG INHALER INHALATION SCH ×2 (07:25→19:16)
[2020-09-23 08:39] LABS: African American GFR (CKD) >90 (>60 ml/min/1.73 sqM); Anion Gap 8 mmol/L; Blood Urea Nitrogen 4 mg/dL (7-17); Calcium 8.2 mg/dL (8.4-10.2); Carbon Dioxide 23 mmol/L (22-30); Chloride 106 mmol/L (98-107); Glucose 130 mg/dL (74-99); Magnesium 1.4 mg/dL (1.6-2.3); Non-African American GFR(CKD) >90 (>60 ml/min/1.73 sqM); Phosphorus 1.7 mg/dL (2.5-4.5); Sodium 137 mmol/L (137-145)
[2020-09-23 08:44] LABS: Potassium 2.7 mmol/L (3.5-5.1)
[2020-09-23] MEDS ORDERED: Magnesium Replacement Protocol 1 EACH MISC MISCELLANE PRN (08:52)
[2020-09-23] MEDS: POTASSIUM CHLORIDE 20 MEQ in WATER FOR INJECTION 1 100ML.BAG IVPB SCH ×3 (09:57→15:54)
[2020-09-23] MEDS: FOLIC ACID 1 MG TAB PO SCH (09:58)
[2020-09-23] MEDS: THIAMINE 100 MG TAB PO SCH (09:58)
[2020-09-23] MEDS: ZINC SULFATE 220 MG CAP PO SCH (09:58)
[2020-09-23] MEDS: PANTOPRAZOLE 40 MG/10 ML VIAL IV SCH ×2 (09:58→19:56)
[2020-09-23] MEDS: MAGNESIUM SULFATE-D5W PMX 1 GM in DEXTROSE/WATER 1 100ML.BAG IVPB SCH ×3 (09:58→13:17)
[2020-09-23] MEDS: OXYBUTYNIN CHLORIDE 5 MG TAB PO SCH ×3 (09:58→19:56)
[2020-09-23] MEDS: DEXTROSE 5% IN WATER 1,000 ML IV SCH (10:00)
--- NOTE | 2020-09-23 11:28 | P.PN ---
Subjective Progress Note Date: 09/23/20 CHIEF COMPLAINT: Vomiting HISTORY OF PRESENT ILLNESS: Patient is status post lysis of adhesions and conve rsion of Loop gastrojejunostomy to Darek-en-Y gastric jejunostomy for adhesions and gastric outlet obstruction. Patient lying in bed comfortably. She currently denies any abdominal pain. She denies any nausea. She denies any BM or flatus. She did get a unit of blood for hemoglobin was 6.7 and is now up to 9.9. TPN was started yesterday. Patient has had about 100 ml output of bilious fluid. Afebrile WBC 7.7 hemoglobin 9.9 platelets 320 sodium was 137 potassium is 2.7 creatinine 0.32 magnesium is 1.4 CO2 is 23 Patient seen and examined with Dr. nieves PHYSICAL EXAM: VITAL SIGNS: Reviewed. GENERAL: Well-developed in no acute distress. HEENT: No sclera icterus. Extraocular movements grossly intact. Moist buccal mucosa. Head is atraumatic, normocephalic. ABDOMEN: Soft. Nondistended. Tender incision site. Incisional dressing clean dry and intact. NEUROLOGIC: Alert and oriented. Cranial nerves II through XII grossly intact. ASSESSMENT: 1. Adhesions and gastric outlet obstruction status post lysis of adhesions and conversion of Loop gastrojejunostomy to Darek-en-Y gastric jejunostomy 2. Anemia likely due to dilution from IV fluids. Patient is status post 1 unit of blood PLAN: -Discontinue NG tube -Keep patient nothing by mouth -Magnesium and potassium are being replaced -Continue TPN for nutrition support -Continue pain medication as needed -Continue IV fluids -Incentive spirometer ordered -Continue PT OT -GI prophylaxis Protonix and DVT prophylaxis SCDs Physician Blood Bank Custodian note has been reviewed by physician. Signing provider agrees with the documented findings, assessment, and plan of care. Objective - Vital Signs Vital signs: Vital Signs Temp 97.8 F 09/23/20 11:21 Pulse 87 09/23/20 11:21 Resp 18 09/23/20 11:21 BP 129/72 09/23/20 11:21 Pulse Ox 97 09/23/20 11:21 Intake & Output 09/22/20 09/23/20 09/23/20 18:59 06:59 18:59 Intake Total 310 Output Total 7326 951 8150 Balance -1140 -125 -1100 Weight 55 kg Intake: Oral 0 Blood Product 310 Rc As-1 Unit 310 [id number] Output: Gastric Drainage 150 100 Urine 236 [id number] 2612 Uretheral (Aguilar) 375 Post Void Residual 375 Other: Voiding Method Indwelling Catheter Indwelling Catheter # Voids 1 - Labs CBC & Chem 7: 09/22/20 15:55 09/23/20 07:21 Labs: Abnormal Lab Results - Last 24 Hours (Table) 09/22/20 09/22/20 09/22/20 Range/Units 09:20 15:55 15:55 RBC 3.45 L (3.80-5.40) m/uL Hgb 9.9 L D (11.4-16.0) gm/dL Hct 32.2 L (34.0-46.0) % MCHC 30.9 L (31.0-37.0) g/dL RDW 16.3 H (11.5-15.5) % Potassium (3.5-5.1) mmol/L BUN (7-17) mg/dL Creatinine (0.52-1.04) mg/dL Glucose (74-99) mg/dL POC Glucose (mg/dL) (75-99) mg/dL Calcium (8.4-10.2) mg/dL Ionized Calcium Barry 5.4 H (4.5-5.3) mg/dL Phosphorus 2.0 L (2.5-4.5) mg/dL Magnesium 1.5 L (1.6-2.3) mg/dL Albumin 2.3 L (3.5-5.0) g/dL Crossmatch See Detail 09/23/20 09/23/20 Range/Units 06:12 07:21 RBC (3.80-5.40) m/uL Hgb (11.4-16.0) gm/dL Hct (34.0-46.0) % MCHC (31.0-37.0) g/dL RDW (11.5-15.5) % Potassium 2.7 L* (3.5-5.1) mmol/L BUN 4 L (7-17) mg/dL Creatinine 0.32 L (0.52-1.04) mg/dL Glucose 130 H (74-99) mg/dL POC Glucose (mg/dL) 141 H (75-99) mg/dL Calcium 8.2 L (8.4-10.2) mg/dL Ionized Calcium Barry (4.5-5.3) mg/dL Phosphorus 1.7 L (2.5-4.5) mg/dL Magnesium 1.4 L (1.6-2.3) mg/dL Albumin (3.5-5.0) g/dL Crossmatch Microbiology - Last 24 Hours (Table) 09/17/20 13:25 Blood Culture - Preliminary Blood No Growth after 120 hours 09/17/20 13:00 Blood Culture - Preliminary Blood No Growth after 120 hours
--- NOTE | 2020-09-23 12:04 | P.PN ---
Subjective Patient is a 75-year-old female with known history of hypertension, hyperlipidemia, osteoarthritis, coronary artery disease with history of stent pl acement, gait dysfunction and history of Covid pneumonia and has been on oxygen since then, recent history of gastro jejunostomy for gastric outlet obstruction on 09/01/2020 and was discharged to extended care facility on 09/13/2020. She has been doing well until 3 days ago. Started vomiting dark-colored/coffee-ground liquids. Unable to tolerate any oral diet. No bowel meds for the past 3 days. Mild abdominal pain and low-grade fever as per patient. On admission blood pressure was 100/70 pulse 134 and respiration 24 and pulse ox 97% on room air. Chest x-ray showed presence of 8 below the hemidiaphragm probably air within the stomach and interposed bowel. However we are unable to entirely exclude mild free intraperitoneal air.. CT of the abdomen pelvis was done which showed there is swirl pattern within a transition in the right upper quadrant small bowel compatible with the volvulus. Diverticulosis without acute diverticulitis. Laboratory data showed WBC 16.7, hemoglobin 11.8 and platelets 655 sodium 141 potassium 3.7 chloride 83 bicarb is 37 BUN 27 creatinine 1.01 lactic acid 3.7 AST 40 ALT 33 alk phos 352 and troponin 0 0.102 gastric occult blood is positive. COVID-19 PCR not detected.. Patient had EGD 08/25/2020 showed mild gastritis and LA grade B distal esophagitis. 09/18/2020 Patient is still having NG tube drainage and patient the NG tube is in the first part of the creatinine from still has dilated bowel loops probably this. Need to withdraw NG tube a bit. 09/19/2020 Patient is passing gas but I can barely hear any bowel sounds still has an NG tube which drained around 300 mL last night nothing today. Patient is using ice chips. Hemoglobin did drop to 6.3 receiving 1 unit of PRBC transfusion. Patient doesn't have any coffee-ground any emesis any more. 09/20/2020 Patient underwent laparotomy found to have gastric outlet obstructions and adhesions patient underwent lysis of adhesion and conversion of loop gastrojejunostomy to Darek-en-Y gastrojejunostomy. Patient is hypotensive and tachycardic will give a bolus of IV fluids continue with IV fluids for now. Patient still has an NG tube in place. Patient is on opiates concerning her age and comorbidities will discontinue opiates and patient was started on Tylenol IV for pain. 09/21/2020 Patient blood pressure improved patient is passing gas although patient is bit hyperchloremic because of which, switch IV fluids to lactated Ringer's and decrease the rate. Still has an NG tube without any significant drainage today. 09/22/2020 Patient doesn't have any output via NG tube probably this can be removed. Patient is passing gas she say she has had bowel movement unsure about this and I need to verify from the nursing staff. Since hemoglobin did go down to 6.8 probably blood loss anemia from surgery patient will be transfused 1 unit of PRBC patient is requiring oxygen today we'll obtain a chest x-ray patient was receiving IV fluids and patient is presently on D5 water. Patient is bit hyperchloremic. His chest x-ray shows pulmonary edema IV fluids will be discontinued and patient will be given a dose of Lasix. 09/23/2020 Patient still has NG tube patient is alert oriented 3 when I valid the patient apparently patient has episodes of confusion. Patient is passing gas is still not moving her bowel patient is presently on TPN no much output from the NG tube. Constitutional: Denied any fatigue denied any fever. Cardio vascular: denied any chest pain, palpitations Gastrointestinal denied any nausea vomiting Pulmonary: Denied any shortness of breath cough Neurologic denied any new focal deficits All inpatient medications were reviewed and appropriate changes in these med ications as dictated in the interval history and assessment and plan. Objective - Vital Signs Vital signs: Vital Signs Temp 97.8 F 09/23/20 11:21 Pulse 87 09/23/20 11:21 Resp 18 09/23/20 11:21 BP 129/72 09/23/20 11:21 Pulse Ox 97 09/23/20 11:21 Intake & Output 09/22/20 09/23/20 09/23/20 18:59 06:59 18:59 Intake Total 310 Output Total 3181 780 3837 Balance -1140 -125 -1100 Weight 55 kg Intake: Oral 0 Blood Product 310 Rc As-1 Unit 310 [id number] Output: Gastric Drainage 150 100 Urine [phone] Uretheral (Aguilar) 375 Post Void Residual 375 Other: Voiding Method Indwelling Catheter Indwelling Catheter # Voids 1 - Exam PHYSICAL EXAMINATION: GENERAL: The patient is alert and oriented x3, not in any acute distress. Thin built HEENT: Pupils are round and equally reacting to light. EOMI. No scleral icterus. No conjunctival pallor. Normocephalic, atraumatic. No pharyngeal erythema. No thyromegaly. CARDIOVASCULAR: S1 and S2 present. No murmurs, rubs, or gallops. PULMONARY: Chest is clear to auscultation, no wheezing or crackles. ABDOMEN: Soft, nontender, nondistended, sluggish bowel sounds No palpable organomegaly. Surgical site areas appear to be clean MUSCULOSKELETAL: No joint swelling or deformity. EXTREMITIES: No cyanosis, clubbing, or pedal edema. NEUROLOGICAL: Gross neurological examination did not reveal any focal deficits. SKIN: No rashes. - Labs CBC & Chem 7: 09/22/20 15:55 09/23/20 07:21 Labs: Abnormal Lab Results - Last 24 Hours (Table) 09/22/20 09/22/20 09/22/20 Range/Units 09:20 15:55 15:55 RBC 3.45 L (3.80-5.40) m/uL Hgb 9.9 L D (11.4-16.0) gm/dL Hct 32.2 L (34.0-46.0) % MCHC 30.9 L (31.0-37.0) g/dL RDW 16.3 H (11.5-15.5) % Potassium (3.5-5.1) mmol/L BUN (7-17) mg/dL Creatinine (0.52-1.04) mg/dL Glucose (74-99) mg/dL POC Glucose (mg/dL) (75-99) mg/dL Calcium (8.4-10.2) mg/dL Ionized Calcium Barry 5.4 H (4.5-5.3) mg/dL Phosphorus 2.0 L (2.5-4.5) mg/dL Magnesium 1.5 L (1.6-2.3) mg/dL Albumin 2.3 L (3.5-5.0) g/dL Crossmatch See Detail 09/23/20 09/23/20 Range/Units 06:12 07:21 RBC (3.80-5.40) m/uL Hgb (11.4-16.0) gm/dL Hct (34.0-46.0) % MCHC (31.0-37.0) g/dL RDW (11.5-15.5) % Potassium 2.7 L* (3.5-5.1) mmol/L BUN 4 L (7-17) mg/dL Creatinine 0.32 L (0.52-1.04) mg/dL Glucose 130 H (74-99) mg/dL POC Glucose (mg/dL) 141 H (75-99) mg/dL Calcium 8.2 L (8.4-10.2) mg/dL Ionized Calcium Barry (4.5-5.3) mg/dL Phosphorus 1.7 L (2.5-4.5) mg/dL Magnesium 1.4 L (1.6-2.3) mg/dL Albumin (3.5-5.0) g/dL Crossmatch Microbiology - Last 24 Hours (Table) 09/17/20 13:25 Blood Culture - Preliminary Blood No Growth after 120 hours 09/17/20 13:00 Blood Culture - Preliminary Blood No Growth after 120 hours Assessment and Plan Plan: gastric outlet obstruction: Patient underwent laparotomy and additional lysis, she still has NG tube in place. Patient is on TPN Possible Coffee-ground emesis possible upper GI bleed. Significant drop in hemoglobin during this hospital physician to see multiple PRBC transfusions present hemoglobin is around 7.3.monitor clinically continue with Protonix received PRBC yesterday as well acute blood loss anemia Hypotension: Due to intravascular volume depletion rule out patient appears to be bit volume overloaded today status post gastrojejunostomy on 09/01/2020 for gastric outlet obstruction. -Sinus tachycardia secondary to intravascular depletion, improved now coronary artery disease history of stent placement hyperlipidemia GERD osteoarthritis history of COVID-19 pneumonia in July 2020 DVT prophylaxis with SCDs.
--- NOTE | 2020-09-23 18:26 | US ---
EXAMINATION TYPE: US venous doppler duplex UE LT DATE OF EXAM: 09/23/2020 COMPARISON: NONE CLINICAL HISTORY: edema. pt very confused, severe swelling SIDE PERFORMED: Left Left Arm: Internal echoes that were not compressible seen at left IJV, proximal and mid subclavian ve in, cephalic vein and basilic vein. IMPRESSION: There is evidence for some chronic deep vein thrombosis in the left arm.
[2020-09-23] MEDS: MVI, ADULT NO.4 WITH VIT K 10 ML, TRACE (CONC-1ML/DOSE) 1 ML, SODIUM PHOSPHATE 15 MMOL,... IV SCH ×7 (22:50)
[2020-09-24] MEDS: POTASSIUM CHLORIDE ER 20 MEQ TAB.ER PO SCH ×4 (06:35→13:55)
[2020-09-24] MEDS: IPRATROPIUM-ALBUTEROL 3 ML NEB INHALATION SCH ×3 (08:19→20:20)
[2020-09-24] MEDS: SYMBICORT 80-4.5 MCG INHALER INHALATION SCH ×2 (08:19→20:20)
[2020-09-24] MEDS ORDERED: ENOXAPARIN 40 MG/0.4 ML SYRINGE SQ SCH (09:00)
[2020-09-24 09:10] LABS: ALT 15 U/L (4-34); AST 21 U/L (14-36); African American GFR (CKD) >90 (>60 ml/min/1.73 sqM); Alkaline Phosphatase 98 U/L (38-126); Anion Gap 2 mmol/L; Blood Urea Nitrogen 6 mg/dL (7-17); Calcium 7.3 mg/dL (8.4-10.2); Carbon Dioxide 28 mmol/L (22-30); Chloride 106 mmol/L (98-107); Glucose 114 mg/dL (74-99); Magnesium 1.9 mg/dL (1.6-2.3); Non-African American GFR(CKD) >90 (>60 ml/min/1.73 sqM); Phosphorus 1.6 mg/dL (2.5-4.5); Potassium 2.8 mmol/L (3.5-5.1); Sodium 136 mmol/L (137-145); Total Bilirubin 0.5 mg/dL (0.2-1.3); Total Protein 4.2 g/dL (6.3-8.2)
[2020-09-24] MEDS ORDERED: Potassium Replacement Protocol 1 EACH MISC MISCELLANE PRN (09:12)
[2020-09-24 09:25] LABS: Anisocytosis Slight; Basophils % (A) 0 %; Eosinophils # (A) 0.3 k/uL (0-0.7); Eosinophils % (A) 5 %; HCT 28.8 % (34.0-46.0); HGB 9.4 gm/dL (11.4-16.0); Hypochromasia Slight; Lymphocytes % (A) 15 %; MCH 28.7 pg (25.0-35.0); MCHC 32.5 g/dL (31.0-37.0); MCV 88.3 fL (80.0-100.0); Mean Platelet Volume 9.4; Monocytes # (A) 0.6 k/uL (0-1.0); Monocytes % (A) 9 %; Neutrophils # (A) 4.6 k/uL (1.3-7.7); Neutrophils % (A) 70 %; Platelet Count 346 k/uL (150-450); Poikilocytosis Moderate; RBC 3.27 m/uL (3.80-5.40); RDW 16.9 % (11.5-15.5); WBC 6.6 k/uL (3.8-10.6)
[2020-09-24] MEDS: FAT EMULSION 20% 250 ML in EMPTY BAG 1 BAG IV SCH (09:58)
[2020-09-24] MEDS: OXYBUTYNIN CHLORIDE 5 MG TAB PO SCH ×3 (09:59→19:46)
[2020-09-24] MEDS: ZINC SULFATE 220 MG CAP PO SCH (09:59)
[2020-09-24] MEDS: PANTOPRAZOLE 40 MG/10 ML VIAL IV SCH ×2 (09:59→19:46)
[2020-09-24] MEDS: FOLIC ACID 1 MG TAB PO SCH (09:59)
[2020-09-24] MEDS: THIAMINE 100 MG TAB PO SCH (09:59)
--- NOTE | 2020-09-24 09:59 | CT ---
EXAMINATION TYPE: CT brain wo con DATE OF EXAM: 09/24/2020 COMPARISON: 02/26/2017 INDICATION: Patient poor historian DLP: 1129.4 mGycm, Automated exposure control for dose reduction was used. CONTRAST: None CT of the brain is performed utilizing 3 mm thick sections through the posterior fossa and 3 mm thick sections through the remaining calvarium. Study is performed within 24 hours of arrival to the hosp [facility]. No abnormal hyperdensity is present to suggest an acute intracranial hemorrhage. No mass lesion is evident. No acute infarcts are evident. Ventricles and sulci are appropriate for the patient age. There is mild age related prominence of the extra-axial space right Paranasal sinuses and mastoid air cells within the [id number] are clear. IMPRESSIONS: 1. Age-appropriate CT brain. No acute intracranial process evident.
[2020-09-24] MEDS: POTASSIUM CHLORIDE 10 MEQ in WATER FOR INJECTION 1 100ML.BAG IVPB SCH ×6 (10:00→21:58)
[2020-09-24] MEDS: ACETAMINOPHEN TAB 500 MG TAB PO PRN ×2 (10:55→23:07)
--- NOTE | 2020-09-24 11:05 | P.PN ---
Subjective Progress Note Date: 09/24/20 CHIEF COMPLAINT: Vomiting HISTORY OF PRESENT ILLNESS: Patient is status post lysis of adhesions and conve rsion of Loop gastrojejunostomy to Darek-en-Y gastric jejunostomy for adhesions and gastric outlet obstruction. Patient lying in bed comfortably. She currently denies any abdominal pain. She denies any nausea or vomiting. Her NG tube was removed yesterday. Patient reports flatus. No bowel movement. Patient is currently on TPN for nutrition support. WBC is 6.6 hemoglobin is 9.4 platelets 346 sodium 136 potassium 2.8 creatinine 0.27 magnesium 1.9 phosphorus 1.6 Patient seen and examined with Dr. nieves PHYSICAL EXAM: VITAL SIGNS: Reviewed. GENERAL: Well-developed in no acute distress. HEENT: No sclera icterus. Extraocular movements grossly intact. Moist buccal mucosa. Head is atraumatic, normocephalic. ABDOMEN: Soft. Nondistended. Tender incision site. Incisional dressing clean dry and intact. NEUROLOGIC: Alert and oriented. Cranial nerves II through XII grossly intact. ASSESSMENT: 1. Adhesions and gastric outlet obstruction status post lysis of adhesions and conversion of Loop gastrojejunostomy to Darek-en-Y gastric jejunostomy. Postop day #4 2. Anemia likely due to dilution from IV fluids. Patient did require blood transfusion during this admission 3. Hypokalemia and hypophosphatemia PLAN: -Advance diet to clear liquids -Continue TPN for nutrition support -Potassium is being replaced -Phosphorus is being replaced -Continue pain medication as needed -Continue IV fluids -Incentive spirometer ordered -Continue PT OT -Encouraged patient to increase activity -Discontinue Aguilar catheter -GI prophylaxis Protonix and DVT prophylaxis Lovenox Physician Assistant Store Manager Sales note has been reviewed by physician. Signing provider agrees with the documented findings, assessment, and plan of care. Objective - Vital Signs Vital signs: Vital Signs Temp 98.5 F 09/24/20 08:00 Pulse 80 09/24/20 08:29 Resp 18 09/24/20 08:00 BP 155/81 09/24/20 08:00 Pulse Ox 94 L 09/24/20 08:00 Intake & Output 09/23/20 09/24/20 09/24/20 18:59 06:59 18:59 Intake Total 754.5 Output Total 1999 1350 Balance -1999 -595.5 Intake: Intake, IV Titration 754.5 Amount Mvi, Adult No.4 with Vit 754.5 K 10 ml Trace (Conc-1Ml/ Dose) 1 ml Sodium Phosphate 15 mmol Potassium Acetate 20 meq Magnesium Sulfate gm 1 gm Sodium Acetate 16 meq In Amino Acid 5%-D15w 1,000 ml @ 30 mls/hr IV .Q24H [facility] Rx#:[id number] Output: Gastric Drainage 100 Urine 1900 1350 Other: Voiding Method Indwelling Catheter Indwelling Catheter # Bowel Movements 0 - Labs CBC & Chem 7: 09/24/20 07:29 09/24/20 07:29 Labs: Abnormal Lab Results - Last 24 Hours (Table) 09/23/20 09/24/20 09/24/20 Range/Units 21:15 07:29 07:29 RBC 3.27 L (3.80-5.40) m/uL Hgb 9.4 L (11.4-16.0) gm/dL Hct 28.8 L (34.0-46.0) % RDW 16.9 H (11.5-15.5) % Sodium 136 L (137-145) mmol/L Potassium 2.7 L* 2.8 L (3.5-5.1) mmol/L BUN 6 L (7-17) mg/dL Creatinine 0.27 L (0.52-1.04) mg/dL Glucose 114 H (74-99) mg/dL Calcium 7.3 L (8.4-10.2) mg/dL Phosphorus 1.6 L (2.5-4.5) mg/dL Total Protein 4.2 L (6.3-8.2) g/dL Albumin 2.0 L (3.5-5.0) g/dL Microbiology - Last 24 Hours (Table) 09/17/20 13:25 Blood Culture - Final Blood No Growth after 144 hours 09/17/20 13:00 Blood Culture - Final Blood No Growth after 144 hours
[2020-09-24] MEDS: DEXTROSE 5% IN WATER 1,000 ML IV SCH ×2 (11:10→17:24)
[2020-09-24] MEDS ORDERED: ENOXAPARIN 40 MG/0.4 ML SYRINGE SQ ONE (12:00)
[2020-09-24] MEDS: MORPHINE SULFATE 2 MG/ML SYRINGE IVP PRN (12:25)
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
[2020-09-24] MEDS: ONDANSETRON 4 MG/2 ML VIAL IVP PRN (13:55)
[2020-09-24] MEDS: SODIUM PHOSPHATE 10 MMOL in SODIUM CHLORIDE 0.9% 100 ML IVPB SCH ×2 (14:03→16:12)
--- NOTE | 2020-09-24 14:04 | US ---
EXAMINATION TYPE: US venous doppler duplex LE BI DATE OF EXAM: 09/24/2020 1:55 PM COMPARISON: 09/23/2020 CLINICAL HISTORY: history dvt. SIDE PERFORMED: Bilateral TECHNIQUE: The lower extremity deep venous system is examined utilizing real time linear array sonog diane with graded compression, doppler sonography and color-flow sonography. VESSELS IMAGED: Common Femoral Vein Deep Femoral Vein Greater Saphenous Vein * Femoral Vein Popliteal Vein Small Saphenous Vein * Proximal Calf Veins (* superficial vessels) Right Leg: Negative for DVT Left Leg: Negative for DVT IMPRESSION: Grayscale, color doppler, spectral doppler imaging performed of the deep veins of the lo wer extremities. There is normal flow, compressibility, vascular waveforms.
[2020-09-24 14:26] LABS: Reticulocyte % 5.4 % (0.5-2.0)
--- NOTE | 2020-09-24 14:38 | P.PN ---
Subjective Patient is a 75-year-old female with known history of hypertension, hyperlipidemia, osteoarthritis, coronary artery disease with history of stent pl acement, gait dysfunction and history of Covid pneumonia and has been on oxygen since then, recent history of gastro jejunostomy for gastric outlet obstruction on 09/01/2020 and was discharged to extended care facility on 09/13/2020. She has been doing well until 3 days ago. Started vomiting dark-colored/coffee-ground liquids. Unable to tolerate any oral diet. No bowel meds for the past 3 days. Mild abdominal pain and low-grade fever as per patient. On admission blood pressure was 100/70 pulse 134 and respiration 24 and pulse ox 97% on room air. Chest x-ray showed presence of 8 below the hemidiaphragm probably air within the stomach and interposed bowel. However we are unable to entirely exclude mild free intraperitoneal air.. CT of the abdomen pelvis was done which showed there is swirl pattern within a transition in the right upper quadrant small bowel compatible with the volvulus. Diverticulosis without acute diverticulitis. Laboratory data showed WBC 16.7, hemoglobin 11.8 and platelets 655 sodium 141 potassium 3.7 chloride 83 bicarb is 37 BUN 27 creatinine 1.01 lactic acid 3.7 AST 40 ALT 33 alk phos 352 and troponin 0 0.102 gastric occult blood is positive. COVID-19 PCR not detected.. Patient had EGD 08/25/2020 showed mild gastritis and LA grade B distal esophagitis. 09/18/2020 Patient is still having NG tube drainage and patient the NG tube is in the first part of the creatinine from still has dilated bowel loops probably this. Need to withdraw NG tube a bit. 09/19/2020 Patient is passing gas but I can barely hear any bowel sounds still has an NG tube which drained around 300 mL last night nothing today. Patient is using ice chips. Hemoglobin did drop to 6.3 receiving 1 unit of PRBC transfusion. Patient doesn't have any coffee-ground any emesis any more. 09/20/2020 Patient underwent laparotomy found to have gastric outlet obstructions and adhesions patient underwent lysis of adhesion and conversion of loop gastrojejunostomy to Darek-en-Y gastrojejunostomy. Patient is hypotensive and tachycardic will give a bolus of IV fluids continue with IV fluids for now. Patient still has an NG tube in place. Patient is on opiates concerning her age and comorbidities will discontinue opiates and patient was started on Tylenol IV for pain. 09/21/2020 Patient blood pressure improved patient is passing gas although patient is bit hyperchloremic because of which, switch IV fluids to lactated Ringer's and decrease the rate. Still has an NG tube without any significant drainage today. 09/22/2020 Patient doesn't have any output via NG tube probably this can be removed. Patient is passing gas she say she has had bowel movement unsure about this and I need to verify from the nursing staff. Since hemoglobin did go down to 6.8 probably blood loss anemia from surgery patient will be transfused 1 unit of PRBC patient is requiring oxygen today we'll obtain a chest x-ray patient was receiving IV fluids and patient is presently on D5 water. Patient is bit hyperchloremic. His chest x-ray shows pulmonary edema IV fluids will be discontinued and patient will be given a dose of Lasix. 09/23/2020 Patient still has NG tube patient is alert oriented 3 when I valid the patient apparently patient has episodes of confusion. Patient is passing gas is still not moving her bowel patient is presently on TPN no much output from the NG tube. 09/24/2020 Patient had low potassium which is being replaced today. Patient is found to have DVT of the left upper extremity. I'll increase the dose of Lovenox to 1.5 mg/kg. Patient many to be discharged on Eliquis. We'll check with her general surgery if that is agreeable in starting her on by mouth Eliquis. Constitutional: Denied any fatigue denied any fever. Cardio vascular: denied any chest pain, palpitations Gastrointestinal denied any nausea vomiting Pulmonary: Denied any shortness of breath cough Neurologic denied any new focal deficits All inpatient medications were reviewed and appropriate changes in these medications as dictated in the interval history and assessment and plan. Objective - Vital Signs Vital signs: Vital Signs Temp 98.7 F 09/24/20 12:00 Pulse 100 09/24/20 12:55 Resp 18 09/24/20 12:00 BP 155/94 09/24/20 12:00 Pulse Ox 96 09/24/20 12:00 Intake & Output 09/23/20 09/24/20 09/24/20 18:59 06:59 18:59 Intake Total 754.5 40 Output Total 2000 1350 350 Balance -1999 -595.5 -310 Weight 55 kg Intake: Intake, IV Titration 754.5 Amount Mvi, Adult No.4 with Vit 754.5 K 10 ml Trace (Conc-1Ml/ Dose) 1 ml Sodium Phosphate 15 mmol Potassium Acetate 20 meq Magnesium Sulfate gm 1 gm Sodium Acetate 16 meq In Amino Acid 5%-D15w 1,000 ml @ 30 mls/hr IV .Q24H [facility] Rx#:[id number] Oral 40 Output: Gastric Drainage 100 Urine 1900 1350 350 Uretheral (Aguilar) 350 Other: Voiding Method Indwelling Catheter Indwelling Catheter # Voids 1 # Bowel Movements 0 - Exam PHYSICAL EXAMINATION: GENERAL: The patient is alert and oriented x3, not in any acute distress. Thin built HEENT: Pupils are round and equally reacting to light. EOMI. No scleral icterus. No conjunctival pallor. Normocephalic, atraumatic. No pharyngeal erythema. No thyromegaly. CARDIOVASCULAR: S1 and S2 present. No murmurs, rubs, or gallops. PULMONARY: Chest is clear to auscultation, no wheezing or crackles. ABDOMEN: Soft, nontender, nondistended, sluggish bowel sounds No palpable organomegaly. Surgical site areas appear to be clean MUSCULOSKELETAL: No joint swelling or deformity. EXTREMITIES: No cyanosis, clubbing, or pedal edema. NEUROLOGICAL: Gross neurological examination did not reveal any focal deficits. SKIN: No rashes. - Labs CBC & Chem 7: 09/24/20 07:29 09/24/20 07:29 Labs: Abnormal Lab Results - Last 24 Hours (Table) 09/23/20 09/24/20 09/24/20 Range/Units 21:15 07:29 07:29 RBC 3.27 L (3.80-5.40) m/uL Hgb 9.4 L (11.4-16.0) gm/dL Hct 28.8 L (34.0-46.0) % RDW 16.9 H (11.5-15.5) % Sodium 136 L (137-145) mmol/L Potassium 2.7 L* 2.8 L (3.5-5.1) mmol/L BUN 6 L (7-17) mg/dL Creatinine 0.27 L (0.52-1.04) mg/dL Glucose 114 H (74-99) mg/dL Calcium 7.3 L (8.4-10.2) mg/dL Phosphorus 1.6 L (2.5-4.5) mg/dL Total Protein 4.2 L (6.3-8.2) g/dL Albumin 2.0 L (3.5-5.0) g/dL Microbiology - Last 24 Hours (Table) 09/17/20 13:25 Blood Culture - Final Blood No Growth after 144 hours 09/17/20 13:00 Blood Culture - Final Blood No Growth after 144 hours Assessment and Plan Plan: gastric outlet obstruction: Patient underwent laparotomy and additional lysis, she still has NG tube in place. Patient is on TPN -Left Upper extremity DVT which appeared to be chronic DVT. Patient will be started on Lovenox will closely monitor hemoglobin and if she starts bleeding this Lovenox had to be discontinued -Acute upper GI bleed during this hospital admission which resolved at this time. Patient is on Protonix. status post gastrojejunostomy on 09/01/2020 for gastric outlet obstruction. coronary artery disease history of stent placement hyperlipidemia GERD osteoarthritis history of COVID-19 pneumonia in July 2020 DVT prophylaxis with SCDs.
[2020-09-24] MEDS: MVI, ADULT NO.4 WITH VIT K 10 ML, TRACE (CONC-1ML/DOSE) 1 ML, SODIUM PHOSPHATE 15 MMOL,... IV SCH ×7 (21:57)
[2020-09-24 22:34] LABS: Ferritin 112.6 ng/mL (10.0-291.0)
[2020-09-24 22:42] LABS: Folate, Serum >24.0 ng/mL
[2020-09-24 22:43] LABS: % Iron Saturation 7.21 (12.00-45.00); Iron 16 ug/dL (50-170); Total Iron Binding Capacity 222 ug/dL (228-460)
[2020-09-25] MEDS: ACETAMINOPHEN TAB 500 MG TAB PO PRN (04:54)
[2020-09-25] MEDS: DEXTROSE 5% IN WATER 1,000 ML IV SCH (05:07)
[2020-09-25] MEDS: SYMBICORT 80-4.5 MCG INHALER INHALATION SCH ×2 (08:21→20:19)
[2020-09-25] MEDS: IPRATROPIUM-ALBUTEROL 3 ML NEB INHALATION SCH ×3 (08:21→20:20)
[2020-09-25 08:31] LABS: Anisocytosis Slight; Basophils % (A) 0 %; Eosinophils # (A) 0.3 k/uL (0-0.7); Eosinophils % (A) 5 %; HCT 29.7 % (34.0-46.0); HGB 9.3 gm/dL (11.4-16.0); Hypochromasia Moderate; Lymphocytes # (A) 1.1 k/uL (1.0-4.8); Lymphocytes % (A) 16 %; MCH 28.5 pg (25.0-35.0); MCHC 31.4 g/dL (31.0-37.0); MCV 90.8 fL (80.0-100.0); Mean Platelet Volume 8.2; Monocytes # (A) 0.7 k/uL (0-1.0); Monocytes % (A) 10 %; Neutrophils # (A) 4.6 k/uL (1.3-7.7); Neutrophils % (A) 67 %; Platelet Count 354 k/uL (150-450); Poikilocytosis Slight; RBC 3.27 m/uL (3.80-5.40); RDW 16.9 % (11.5-15.5); WBC 6.9 k/uL (3.8-10.6)
[2020-09-25 08:48] LABS: ALT 16 U/L (4-34); AST 24 U/L (14-36); African American GFR (CKD) >90 (>60 ml/min/1.73 sqM); Alkaline Phosphatase 111 U/L (38-126); Anion Gap -1 mmol/L; Blood Urea Nitrogen 8 mg/dL (7-17); Calcium 7.5 mg/dL (8.4-10.2); Carbon Dioxide 30 mmol/L (22-30); Chloride 107 mmol/L (98-107); Glucose 107 mg/dL (74-99); Magnesium 1.8 mg/dL (1.6-2.3); Non-African American GFR(CKD) >90 (>60 ml/min/1.73 sqM); Phosphorus 2.4 mg/dL (2.5-4.5); Potassium 4.6 mmol/L (3.5-5.1); Sodium 136 mmol/L (137-145); Total Bilirubin 0.4 mg/dL (0.2-1.3); Total Protein 4.1 g/dL (6.3-8.2)
[2020-09-25] MEDS ORDERED: ENOXAPARIN 80 MG/0.8 ML SYRINGE SQ SCH (09:00)
[2020-09-25] MEDS: OXYBUTYNIN CHLORIDE 5 MG TAB PO SCH ×3 (09:53→20:12)
[2020-09-25] MEDS: FOLIC ACID 1 MG TAB PO SCH (09:53)
[2020-09-25] MEDS: PANTOPRAZOLE 40 MG/10 ML VIAL IV SCH ×2 (09:53→20:12)
[2020-09-25] MEDS: ZINC SULFATE 220 MG CAP PO SCH (09:53)
[2020-09-25] MEDS: THIAMINE 100 MG TAB PO SCH (09:53)
[2020-09-25] MEDS ORDERED: MAGNESIUM SULFATE-D5W PMX 1 GM in DEXTROSE/WATER 1 100ML.BAG IVPB ONE (13:26)
[2020-09-25] MEDS ORDERED: HEPARIN SOD,PORK IN 0.45% NACL 25,000 UNIT in 0.45% NACL 1 250ML.BAG IV SCH (13:30)
[2020-09-25] MEDS ORDERED: HEPARIN SODIUM 1,000 UN/ML (10ML VL) IV PRN (13:31)
[2020-09-25] MEDS: HEPARIN SOD,PORK IN 0.45% NACL 25,000 UNIT in 0.45% NACL 1 250ML.BAG IV SCH (13:40)
--- NOTE | 2020-09-25 13:40 | P.PN ---
Subjective Patient is a 75-year-old female with known history of hypertension, hyperlipidemia, osteoarthritis, coronary artery disease with history of stent pl acement, gait dysfunction and history of Covid pneumonia and has been on oxygen since then, recent history of gastro jejunostomy for gastric outlet obstruction on 09/01/2020 and was discharged to extended care facility on 09/13/2020. She has been doing well until 3 days ago. Started vomiting dark-colored/coffee-ground liquids. Unable to tolerate any oral diet. No bowel meds for the past 3 days. Mild abdominal pain and low-grade fever as per patient. On admission blood pressure was 100/70 pulse 134 and respiration 24 and pulse ox 97% on room air. Chest x-ray showed presence of 8 below the hemidiaphragm probably air within the stomach and interposed bowel. However we are unable to entirely exclude mild free intraperitoneal air.. CT of the abdomen pelvis was done which showed there is swirl pattern within a transition in the right upper quadrant small bowel compatible with the volvulus. Diverticulosis without acute diverticulitis. Laboratory data showed WBC 16.7, hemoglobin 11.8 and platelets 655 sodium 141 potassium 3.7 chloride 83 bicarb is 37 BUN 27 creatinine 1.01 lactic acid 3.7 AST 40 ALT 33 alk phos 352 and troponin 0 0.102 gastric occult blood is positive. COVID-19 PCR not detected.. Patient had EGD 08/25/2020 showed mild gastritis and LA grade B distal esophagitis. 09/18/2020 Patient is still having NG tube drainage and patient the NG tube is in the first part of the creatinine from still has dilated bowel loops probably this. Need to withdraw NG tube a bit. 09/19/2020 Patient is passing gas but I can barely hear any bowel sounds still has an NG tube which drained around 300 mL last night nothing today. Patient is using ice chips. Hemoglobin did drop to 6.3 receiving 1 unit of PRBC transfusion. Patient doesn't have any coffee-ground any emesis any more. 09/20/2020 Patient underwent laparotomy found to have gastric outlet obstructions and adhesions patient underwent lysis of adhesion and conversion of loop gastrojejunostomy to Darek-en-Y gastrojejunostomy. Patient is hypotensive and tachycardic will give a bolus of IV fluids continue with IV fluids for now. Patient still has an NG tube in place. Patient is on opiates concerning her age and comorbidities will discontinue opiates and patient was started on Tylenol IV for pain. 09/21/2020 Patient blood pressure improved patient is passing gas although patient is bit hyperchloremic because of which, switch IV fluids to lactated Ringer's and decrease the rate. Still has an NG tube without any significant drainage today. 09/22/2020 Patient doesn't have any output via NG tube probably this can be removed. Patient is passing gas she say she has had bowel movement unsure about this and I need to verify from the nursing staff. Since hemoglobin did go down to 6.8 probably blood loss anemia from surgery patient will be transfused 1 unit of PRBC patient is requiring oxygen today we'll obtain a chest x-ray patient was receiving IV fluids and patient is presently on D5 water. Patient is bit hyperchloremic. His chest x-ray shows pulmonary edema IV fluids will be discontinued and patient will be given a dose of Lasix. 09/23/2020 Patient still has NG tube patient is alert oriented 3 when I valid the patient apparently patient has episodes of confusion. Patient is passing gas is still not moving her bowel patient is presently on TPN no much output from the NG tube. 09/24/2020 Patient had low potassium which is being replaced today. Patient is found to have DVT of the left upper extremity. I'll increase the dose of Lovenox to 1.5 mg/kg. Patient many to be discharged on Eliquis. We'll check with her general surgery if that is agreeable in starting her on by mouth Eliquis. Subjective: 09/25/2020 this is a pleasant 75 years old female who was admitted on 09/17 for signs and symptoms of gastric outlet obstruction. status post laparotomy and gastr ojejunostomy on 09/01 For her gastric outlet obstruction. The patient was discharge on emergency where she developed coffee-ground emesis after 2 days and with abdominal pain and CT was transferred to the hospital back. She is status post 2 units of blood transfusion. Other chronic medical problems including history of coronary artery disease status post stenting. Yesterday left upper extremity ultrasound showing the venous thrombosis with could be chronic. Has been evaluated by hematology service and they recommended switching her Lovenox 80 mg to heparin drip, low intensity given she is high- risk for bleeding and she may end up needing IVC filter if she could not tolerate anticoagulation. No NG tube in place. Patient complains from some abdominal pain at her previous surgery site Patient currently is awake and alert, no acute distress. He is fully awake and oriented. She tolerates clear liquid diet. No bowel movement but she is passing gas. Left upper extremity showing no signs of swelling, tenderness or warmth. Currently she is also on a Protonix IV 40 mg twice daily Patient also given TPN Review of systems CONSTITUTIONAL: No fever, no malaise, no fatigue. HEENT: No recent visual problems or hearing problems. Denied any sore throat. CARDIOVASCULAR: No orthopnea, PND, no palpitations, no syncope. PULMONARY: No shortness of breath, no cough, no hemoptysis. GASTROINTESTINAL: No diarrhea, no nausea, no vomiting, no abdominal pain. Normoactive bowel sounds. Active Medications Generic Name Dose Route Start Last Admin Trade Name Freq PRN Reason Stop Dose Admin Acetaminophen 500 mg 09/24/20 10:45 09/25/20 04:54 Acetaminophen Tab 500 Mg Tab PO 500 mg Q6HR PRN Administration Fever and/ or Pain Albuterol/Ipratropium 3 ml 09/17/20 12:54 Ipratropium-Albuterol 3 Ml Neb INHALATION RT-TID PRN Shortness Of Breath Or Wheezing Albuterol/Ipratropium 3 ml 09/17/20 13:00 09/25/20 11:24 Ipratropium-Albuterol 3 Ml Neb INHALATION 3 ml RT-TID [facility] Administration Budesonide/Formoterol Fumarate 2 puff 09/17/20 20:00 09/25/20 08:21 Symbicort 80-4.5 Mcg Inhaler INHALATION 2 puff RT-BID [facility] Administration Fluticasone Propionate 2 spray 09/17/20 12:54 Fluticasone 50mcg/[place] Nasal 16gm EA NOSTRIL BID PRN Allergy Symptoms Folic Acid 1 mg 09/18/20 09:00 09/25/20 09:53 Folic Acid 1 Mg Tab PO 1 mg DAILY [facility] Administration Heparin Sodium (Porcine) 0 unit 09/25/20 13:31 Heparin Sodium 1,000 Un/Ml (10ml Vl) IV PER PROTOCOL PRN Low PTT Protocol Fat Emulsion Intravenous 250 250 mls @ 21 mls/hr 09/24/20 09:00 09/24/20 09:58 ml/ IV Solution IV 21 mls/hr MoWeFr [facility] Administration Parenteral Vitamin Supplement 1,036 mls @ 30 mls/hr 09/22/20 19:00 09/24/20 21:57 10 ml/ Zinc/Copper/Manganese/ IV 09/25/20 18:59 30 mls/hr Selenium 1 ml/ Sodium .Q24H [facility] Administration Phosphate 15 mmol/ Potassium Acetate 20 meq/ Magnesium Sulfate 1 gm/ Sodium Acetate 16 meq/ Amino Acids/Dextrose Parenteral Vitamin Supplement 1,036 mls @ 70 mls/hr 09/25/20 19:00 10 ml/ Zinc/Copper/Manganese/ IV Selenium 1 ml/ Sodium .BY DURATION [facility] Phosphate 15 mmol/ Potassium Acetate 20 meq/ Magnesium Sulfate 1 gm/ Sodium Acetate 16 meq/ Amino Acids/Dextrose Sodium Phosphate 15 mmol/ 1,025 mls @ 70 mls/hr 09/25/20 19:00 Potassium Acetate 20 meq/ IV Magnesium Sulfate 1 gm/ Sodium .BY DURATION [facility] Acetate 16 meq/ Amino Acids/ Dextrose Magnesium Sulfate/Dextrose 1 100 mls @ 100 mls/hr 09/25/20 13:26 gm/ IV Solution IVPB 09/25/20 14:25 ONCE ONE Heparin Sodium/Sodium Chloride 250 mls @ 6.6 mls/hr 09/25/20 13:45 25,000 unit/ Sodium Chloride IV .Q24H [facility] Protocol 12 UNITS/KG/HR Miscellaneous Information 1 each 09/23/20 08:52 Magnesium Replacement Protocol 1 Each Mis MISCELLANE DAILY PRN Per Protocol Protocol Miscellaneous Information 1 each 09/24/20 09:12 Potassium Replacement Protocol 1 Each Misc MISCELLANE DAILY PRN Per Protocol Protocol Morphine Sulfate 2 mg 09/20/20 15:27 09/24/20 12:25 Morphine Sulfate 2 Mg/Ml Syringe IVP 2 mg Q3HR PRN Administration Pain Naloxone HCl 0.2 mg 09/17/20 11:45 Naloxone 0.4 Mg/Ml 1 Ml Vial IV Q2M PRN Opioid Reversal Ondansetron HCl 4 mg 09/17/20 11:43 09/24/20 13:55 Ondansetron 4 Mg/2 Ml Vial IVP 4 mg Q8HR PRN Administration Nausea And Vomiting Oxybutynin Chloride 5 mg 09/17/20 13:00 09/25/20 12:18 Oxybutynin Chloride 5 Mg Tab PO 5 mg TID@0900,1300,2100 [facility] Administration Pantoprazole Sodium 40 mg 09/17/20 21:00 09/25/20 09:53 Pantoprazole 40 Mg/10 Ml Vial IV 40 mg BID [facility] Administration Senna 8.6 mg 09/17/20 12:54 Sennosides 8.6 Mg Tab PO DAILY PRN Constipation Sodium Chloride 10 ml 09/22/20 16:04 Sodium Chloride 0.9% Flush 10 Ml Syringe IV Q4HR PRN PICC Line Sodium Chloride 10 ml 09/29/20 09:00 Sodium Chloride 0.9% Flush 10 Ml Syringe IV WEEKLY [facility] Sodium Chloride 20 ml 09/22/20 16:04 Sodium Chloride 0.9% Flush 10 Ml Syringe IV Q4HR PRN PICC Line Thiamine HCl 100 mg 09/18/20 09:00 09/25/20 09:53 Thiamine 100 Mg Tab PO 100 mg DAILY [facility] Administration Zinc Sulfate 220 mg 09/18/20 09:00 09/25/20 09:53 Zinc Sulfate 220 Mg Cap PO 220 mg DAILY [facility] Administration Objective - Vital Signs Vital signs: Vital Signs Temp 98.2 F 09/25/20 08:00 Pulse 95 09/25/20 12:00 Resp 18 09/25/20 12:00 BP 141/91 09/25/20 12:00 Pulse Ox 95 09/25/20 12:00 Intake & Output 09/24/20 09/25/20 09/25/20 18:59 06:59 18:59 Intake Total 1158 693.5 Output Total 950 1 Balance 208 693.5 -1 Weight 55 kg Intake: Intake, IV Titration 900 693.5 Amount Dextrose 5% in Water 1, 400 000 ml @ 50 mls/hr IV . Q20H [facility] Rx#:[id number] Mvi, Adult No.4 with Vit 693.5 K 10 ml Trace (Conc-1Ml/ Dose) 1 ml Sodium Phosphate 15 mmol Potassium Acetate 20 meq Magnesium Sulfate gm 1 gm Sodium Acetate 16 meq In Amino Acid 5%-D15w 1,000 ml @ 30 mls/hr IV .Q24H [facility] Rx#:[id number] Mvi, Adult No.4 with Vit 300 K 10 ml Trace (Conc-1Ml/ Dose) 1 ml Sodium Phosphate 15 mmol Potassium Acetate 20 meq Magnesium Sulfate gm 1 gm Sodium Acetate 16 meq In Amino Acid 5%-D15w 1,000 ml @ 70 mls/hr IV .BY DURATION [facility] Rx#: [id number] Potassium Chloride 10 meq 100 In Water For Injection 1 100ml.bag @ 100 mls/hr IVPB Q1HR [facility] Rx#: [id number] Sodium Phosphate 10 mmol 100 In Sodium Chloride 0.9% 100 ml @ 50 mls/hr IVPB Q2H [facility] Rx#:[id number] Oral 258 Output: Urine 950 1 Straight 600 Uretheral (Aguilar) 350 Other: Voiding Method Diaper Diaper Incontinent Incontinent # Voids 1 1 - Exam GENERAL: The patient is alert and oriented x3, not in any acute distress. Well developed, well nourished. HEENT: Pupils are round and equally reacting to light. EOMI. No scleral icterus. No conjunctival pallor. Normocephalic, atraumatic. No pharyngeal erythema. No thyromegaly. CARDIOVASCULAR: S1 and S2 present. No murmurs, rubs, or gallops. PULMONARY: Chest is clear to auscultation, no wheezing or crackles. ABDOMEN: Soft, nontender, nondistended, normoactive bowel sounds. No palpable organomegaly. Central abdominal wound is closed and is healing. Dressing is in place which is somewhat weight MUSCULOSKELETAL: No joint swelling or deformity. EXTREMITIES: No cyanosis, clubbing, or pedal edema. NEUROLOGICAL: Gross neurological examination did not reveal any focal deficits. SKIN: No rashes. no petechiae. - Labs CBC & Chem 7: 09/25/20 08:15 09/25/20 08:15 Labs: Abnormal Lab Results - Last 24 Hours (Table) 09/24/20 09/24/20 09/25/20 Range/Units 14:05 14:05 08:15 RBC (3.80-5.40) m/uL Hgb (11.4-16.0) gm/dL Hct (34.0-46.0) % RDW (11.5-15.5) % Retic Count 5.4 H (0.5-2.0) % Sodium 136 L (137-145) mmol/L Creatinine 0.25 L (0.52-1.04) mg/dL Glucose 107 H (74-99) mg/dL Calcium 7.5 L (8.4-10.2) mg/dL Phosphorus 2.4 L (2.5-4.5) mg/dL Iron 16 L (50-170) ug/dL TIBC 222 L (228-460) ug/dL % Saturation 7.21 L (12.00-45.00) Total Protein 4.1 L (6.3-8.2) g/dL Albumin 2.0 L (3.5-5.0) g/dL Vitamin B12 955.0 H (200.0-944.0) pg/mL 09/25/20 Range/Units 08:15 RBC 3.27 L (3.80-5.40) m/uL Hgb 9.3 L (11.4-16.0) gm/dL Hct 29.7 L (34.0-46.0) % RDW 16.9 H (11.5-15.5) % Retic Count (0.5-2.0) % Sodium (137-145) mmol/L Creatinine (0.52-1.04) mg/dL Glucose (74-99) mg/dL Calcium (8.4-10.2) mg/dL Phosphorus (2.5-4.5) mg/dL Iron (50-170) ug/dL TIBC (228-460) ug/dL % Saturation (12.00-45.00) Total Protein (6.3-8.2) g/dL Albumin (3.5-5.0) g/dL Vitamin B12 (200.0-944.0) pg/mL Assessment and Plan Assessment: gastric outlet obstruction: Patient status post recent laparotomy and gastrojejunostomy not eating well, liquid diet. Patient is on TPN. No nausea vomiting -Left Upper extremity DVT which appeared to be chronic DVT. Hematology team on the case recommended heparin drip. Discontinue Lovenox and monitor hemoglobin closely -Acute upper GI bleed during this hospital admission which resolved at this time. Patient is on Protonix. coronary artery disease history of stent placement hyperlipidemia GERD osteoarthritis history of COVID-19 pneumonia in July 2020 DVT prophylaxis with SCDs. Also heparin GI prophylaxis: Protonix
[2020-09-25] MEDS: MORPHINE SULFATE 2 MG/ML SYRINGE IVP PRN ×2 (13:57→21:19)
--- NOTE | 2020-09-25 14:35 | P.PN ---
Subjective Progress Note Date: 09/25/20 CHIEF COMPLAINT: Gastric outlet obstruction HISTORY OF PRESENT ILLNESS: The patient is a 75-year-old female status post gastric bypass for gastric outlet obstruction. She has history intractable nause a and vomiting. She is on TPN. She denies nausea today. She is tolerating liquids. She is passing flatus. ROS: No fevers or chills. No new chest pain. No dyspnea. PHYSICAL EXAM: VITAL SIGNS: Reviewed CONSTITUTIONAL: Well developed and in no acute distress. EYES: Conjuctivae without sclera icterus. Extraocular movements grossly intact. HEAD, EARS, NOSE, THROAT: Moist buccal mucosa. Head is atraumatic, normocephalic. Hears conversational speech. No nasal drainage. NECK: Supple. No thyroidomegaly. RESPIRATORY: Non-labored respirations and equal bilateral excursions. CARDIOVASCULAR: 2+ radial pulses. ABDOMEN: No peritonitis. MUSCULOSKELETAL: No gross deformity of the lower extremities noted. No clubbing. No cyanosis. SKIN: Good skin turgor. Well perfused. NEUROLOGIC: Cranial nerves II through XII grossly intact. No focal or lateralizing signs. PSYCH: Appropriate affect. Alert and oriented to person, place and time. CLINICAL LABS: WBC normal 6.9. Hemoglobin stable 9.3-9.4, anemic. Hypokalemic improved from 2.8-4.6. Creatinine 0.25 ASSESSMENT: 1. Gastric outlet obstruction status post gastric bypass 2. Protein malnutrition requiring TPN 3. Anemia 4. Hypokalemia PLAN: 1. Advance diet to soft. 2. Ambulation encouraged. Objective - Vital Signs Vital signs: Vital Signs Temp 98.2 F 09/25/20 08:00 Pulse 96 09/25/20 11:36 Resp 18 09/25/20 08:00 BP 158/78 09/25/20 08:00 Pulse Ox 98 09/25/20 08:00 Intake & Output 09/24/20 09/25/20 09/25/20 18:59 06:59 18:59 Intake Total 1158 693.5 Output Total 950 1 Balance 208 693.5 -1 Weight 55 kg Intake: Intake, IV Titration 900 693.5 Amount Dextrose 5% in Water 1, 400 000 ml @ 50 mls/hr IV . Q20H [facility] Rx#:[id number] Mvi, Adult No.4 with Vit 693.5 K 10 ml Trace (Conc-1Ml/ Dose) 1 ml Sodium Phosphate 15 mmol Potassium Acetate 20 meq Magnesium Sulfate gm 1 gm Sodium Acetate 16 meq In Amino Acid 5%-D15w 1,000 ml @ 30 mls/hr IV .Q24H [facility] Rx#:[id number] Mvi, Adult No.4 with Vit 300 K 10 ml Trace (Conc-1Ml/ Dose) 1 ml Sodium Phosphate 15 mmol Potassium Acetate 20 meq Magnesium Sulfate gm 1 gm Sodium Acetate 16 meq In Amino Acid 5%-D15w 1,000 ml @ 70 mls/hr IV .BY DURATION [facility] Rx#: [id number] Potassium Chloride 10 meq 100 In Water For Injection 1 100ml.bag @ 100 mls/hr IVPB Q1HR [facility] Rx#: [id number] Sodium Phosphate 10 mmol 100 In Sodium Chloride 0.9% 100 ml @ 50 mls/hr IVPB Q2H [facility] Rx#:[id number] Oral 258 Output: Urine 950 1 Straight 600 Uretheral (Aguilar) 350 Other: Voiding Method Diaper Diaper Incontinent Incontinent # Voids 1 1 - Labs CBC & Chem 7: 09/25/20 08:15 09/25/20 08:15 Labs: Abnormal Lab Results - Last 24 Hours (Table) 09/24/20 09/24/20 09/25/20 Range/Units 14:05 14:05 08:15 RBC (3.80-5.40) m/uL Hgb (11.4-16.0) gm/dL Hct (34.0-46.0) % RDW (11.5-15.5) % Retic Count 5.4 H (0.5-2.0) % Sodium 136 L (137-145) mmol/L Creatinine 0.25 L (0.52-1.04) mg/dL Glucose 107 H (74-99) mg/dL Calcium 7.5 L (8.4-10.2) mg/dL Phosphorus 2.4 L (2.5-4.5) mg/dL Iron 16 L (50-170) ug/dL TIBC 222 L (228-460) ug/dL % Saturation 7.21 L (12.00-45.00) Total Protein 4.1 L (6.3-8.2) g/dL Albumin 2.0 L (3.5-5.0) g/dL Vitamin B12 955.0 H (200.0-944.0) pg/mL 09/25/20 Range/Units 08:15 RBC 3.27 L (3.80-5.40) m/uL Hgb 9.3 L (11.4-16.0) gm/dL Hct 29.7 L (34.0-46.0) % RDW 16.9 H (11.5-15.5) % Retic Count (0.5-2.0) % Sodium (137-145) mmol/L Creatinine (0.52-1.04) mg/dL Glucose (74-99) mg/dL Calcium (8.4-10.2) mg/dL Phosphorus (2.5-4.5) mg/dL Iron (50-170) ug/dL TIBC (228-460) ug/dL % Saturation (12.00-45.00) Total Protein (6.3-8.2) g/dL Albumin (3.5-5.0) g/dL Vitamin B12 (200.0-944.0) pg/mL Assessment and Plan (1) Anemia Current Visit: Yes Status: Acute Code(s): D64.9 - ANEMIA, UNSPECIFIED SNOMED Code(s): 816586699 (2) Hypokalemia Current Visit: Yes Status: Acute Code(s): E87.6 - HYPOKALEMIA SNOMED Code(s): 77678344 (3) Nausea & vomiting Current Visit: Yes Status: Acute Code(s): R11.2 - NAUSEA WITH VOMITING, UNSPECIFIED SNOMED Code(s): 58467673 (4) Gastric outlet obstruction Current Visit: No Status: Acute Code(s): K31.1 - ADULT HYPERTROPHIC PYLORIC STENOSIS SNOMED Code(s): 462868119 (5) Small bowel obstruction Current Visit: No Status: Acute Code(s): K56.69 - OTHER INTESTINAL OBSTRUCTION * DO NOT USE * SNOMED Code(s): 760183670
[2020-09-25] MEDS: 1: MVI, ADULT NO.4 WITH VIT K 10 ML, TRACE (CONC-1ML/DOSE) 1 ML, SODIUM PHOSPHATE 15 MMO IV SCH ×7 (20:12)
[2020-09-25] MEDS: amLODIPine 5 MG TAB PO SCH (21:17)
[2020-09-26 06:03] LABS: Glucose,Whole Blood 114 mg/dL (75-99)
[2020-09-26] MEDS: 1: MVI, ADULT NO.4 WITH VIT K 10 ML, TRACE (CONC-1ML/DOSE) 1 ML, SODIUM PHOSPHATE 15 MMO IV SCH ×14 (08:00→21:11)
[2020-09-26] MEDS: SYMBICORT 80-4.5 MCG INHALER INHALATION SCH ×2 (08:06→21:36)
[2020-09-26] MEDS: IPRATROPIUM-ALBUTEROL 3 ML NEB INHALATION SCH ×3 (08:07→21:36)
[2020-09-26] MEDS: PANTOPRAZOLE 40 MG/10 ML VIAL IV SCH ×2 (08:12→20:07)
[2020-09-26] MEDS: OXYBUTYNIN CHLORIDE 5 MG TAB PO SCH ×3 (08:12→20:06)
[2020-09-26] MEDS: ZINC SULFATE 220 MG CAP PO SCH (08:12)
[2020-09-26] MEDS: FOLIC ACID 1 MG TAB PO SCH (08:12)
[2020-09-26] MEDS: ACETAMINOPHEN TAB 500 MG TAB PO PRN ×2 (08:12→20:07)
[2020-09-26] MEDS: THIAMINE 100 MG TAB PO SCH (08:12)
[2020-09-26 08:50] LABS: Anisocytosis Slight; Basophils % (A) 0 %; Eosinophils # (A) 0.4 k/uL (0-0.7); Eosinophils % (A) 4 %; HCT 31.1 % (34.0-46.0); HGB 10.4 gm/dL (11.4-16.0); Hypochromasia Slight; Lymphocytes # (A) 1.2 k/uL (1.0-4.8); Lymphocytes % (A) 11 %; MCH 29.9 pg (25.0-35.0); MCHC 33.5 g/dL (31.0-37.0); MCV 89.4 fL (80.0-100.0); Mean Platelet Volume 9.4; Monocytes % (A) 10 %; Neutrophils # (A) 7.7 k/uL (1.3-7.7); Neutrophils % (A) 74 %; Platelet Count 375 k/uL (150-450); Poikilocytosis Slight; RBC 3.48 m/uL (3.80-5.40); RDW 16.2 % (11.5-15.5); WBC 10.4 k/uL (3.8-10.6)
[2020-09-26 08:51] LABS: Partial Thromboplastin Time 52.4 sec (22.0-30.0); Prothrombin Time 10.3 sec (9.0-12.0)
[2020-09-26 08:56] LABS: ALT 16 U/L (4-34); AST 23 U/L (14-36); African American GFR (CKD) >90 (>60 ml/min/1.73 sqM); Albumin 2.1 g/dL (3.5-5.0); Alkaline Phosphatase 129 U/L (38-126); Anion Gap 4 mmol/L; Blood Urea Nitrogen 7 mg/dL (7-17); Calcium 7.7 mg/dL (8.4-10.2); Carbon Dioxide 28 mmol/L (22-30); Chloride 104 mmol/L (98-107); Glucose 104 mg/dL (74-99); Magnesium 1.8 mg/dL (1.6-2.3); Non-African American GFR(CKD) >90 (>60 ml/min/1.73 sqM); Phosphorus 2.5 mg/dL (2.5-4.5); Potassium 3.8 mmol/L (3.5-5.1); Sodium 136 mmol/L (137-145); Total Bilirubin 0.4 mg/dL (0.2-1.3); Total Protein 4.5 g/dL (6.3-8.2)
--- NOTE | 2020-09-26 12:03 | P.PN ---
Subjective Progress Note Date: 09/26/20 BLE Doppler negative, Upper extremity DVT is Chronic. She has known Iron deficiency GI blood loss, Anticoagulation at full dose risk is high. Would continue with Prophylaxis, will supplement Iron, monitor Serial H and H, and for bleeding. IVC could be considerd if not mobile and further increased risk of thrombolic events Objective - Vital Signs Vital signs: Vital Signs Temp 97.9 F 09/26/20 08:00 Pulse 94 09/26/20 11:55 Resp 16 09/26/20 11:55 BP 134/72 09/26/20 11:55 Pulse Ox 96 09/26/20 11:55 Intake & Output 09/25/20 09/26/20 09/26/20 18:59 06:59 18:59 Intake Total 480 1177.16 240 Output Total 1 Balance 479 1177.16 240 Intake: Intake, IV Titration 697.16 Amount Dextrose 5% in Water 1, 600 000 ml @ 50 mls/hr IV . Q20H [facility] Rx#:[id number] Heparin Sod,Pork in 0.45% 97.16 NaCl 25,000 unit In 0.45 % NaCl 1 250ml.bag @ 12 UNITS/KG/HR 6.6 mls/hr IV .Q24H [facility] Rx#:[id number] Oral 480 480 240 Output: Urine 1 Other: Voiding Method Diaper Diaper Diaper Incontinent Incontinent Incontinent # Voids 1 - Exam Thin Alert, porr historian Head: NCNT Lungs: DIminished bibasilar Heart RRRR Abdomen Tender, ND Ext: Trace edema Areas of eccymosis - Labs CBC & Chem 7: 09/26/20 08:03 09/26/20 08:03 Labs: Abnormal Lab Results - Last 24 Hours (Table) 09/26/20 09/26/20 09/26/20 Range/Units 06:02 08:03 08:03 RBC 3.48 L (3.80-5.40) m/uL Hgb 10.4 L (11.4-16.0) gm/dL Hct 31.1 L (34.0-46.0) % RDW 16.2 H (11.5-15.5) % APTT (22.0-30.0) sec Sodium 136 L (137-145) mmol/L Creatinine 0.24 L (0.52-1.04) mg/dL Glucose 104 H (74-99) mg/dL POC Glucose (mg/dL) 114 H (75-99) mg/dL Calcium 7.7 L (8.4-10.2) mg/dL Alkaline Phosphatase 129 H (38-126) U/L Total Protein 4.5 L (6.3-8.2) g/dL Albumin 2.1 L (3.5-5.0) g/dL 09/26/20 Range/Units 08:03 RBC (3.80-5.40) m/uL Hgb (11.4-16.0) gm/dL Hct (34.0-46.0) % RDW (11.5-15.5) % APTT 52.4 H (22.0-30.0) sec Sodium (137-145) mmol/L Creatinine (0.52-1.04) mg/dL Glucose (74-99) mg/dL POC Glucose (mg/dL) (75-99) mg/dL Calcium (8.4-10.2) mg/dL Alkaline Phosphatase (38-126) U/L Total Protein (6.3-8.2) g/dL Albumin (3.5-5.0) g/dL Assessment and Plan (1) Chronic deep vein thrombosis (DVT) Current Visit: Yes Status: Acute Code(s): I82.509 - CHRONIC EMBOLISM AND THOMBOS UNSP DEEP VN UNSP LOW EXTRM SNOMED Code(s): 88579509873377018 (2) Anemia due to GI blood loss Current Visit: Yes Status: Chronic Code(s): D50.0 - IRON DEFICIENCY ANEMIA SECONDARY TO BLOOD LOSS (CHRONIC) SNOMED Code(s): 695855915 Plan: Assessment and Recommendations: Normocytic Anemia: - Likely secondary to GI blood loss and malnutrition - Anemia work-up ordered Upper Extremity DVT (Which is chronic): - Currently on Lovenox and recommend to closely monitor serial H and H with this. - Will check lower extremity doppler, IVC could be considered as likely custodial anticoagulation may be difficult with history and recent GI blood loss Plan: BLE Doppler negative, Upper extremity DVT is Chronic. She has known Iron deficiency GI blood loss, Anticoagulation at full dose risk is high. Would continue with Prophylaxis, will supplement Iron, monitor Serial H and H, and for bleeding. IVC could be considerd
[2020-09-26] MEDS: SODIUM FERRIC GLUCONAT-SUCROSE 125 MG in SODIUM CHLORIDE 0.9% 100 ML IVPB SCH (13:21)
[2020-09-26] MEDS: HEPARIN SOD,PORK IN 0.45% NACL 25,000 UNIT in 0.45% NACL 1 250ML.BAG IV SCH ×2 (13:22→21:12)
--- NOTE | 2020-09-26 15:09 | P.PN ---
Subjective Progress Note Date: 09/26/20 CHIEF COMPLAINT: Gastric outlet obstruction HISTORY OF PRESENT ILLNESS: The patient is a 75-year-old female status post gastric bypass for gastric outlet obstruction. She is tolerating diet. No repo rts of abdominal pain. She is now advanced to a soft diet. ROS: No fevers or chills. No new chest pain. No dyspnea. PHYSICAL EXAM: VITAL SIGNS: Reviewed CONSTITUTIONAL: Well developed and in no acute distress. EYES: Conjuctivae without sclera icterus. Extraocular movements grossly intact. HEAD, EARS, NOSE, THROAT: Moist buccal mucosa. Head is atraumatic, normocephalic. Hears conversational speech. No nasal drainage. NECK: Supple. No thyroidomegaly. RESPIRATORY: Non-labored respirations and equal bilateral excursions. CARDIOVASCULAR: 2+ radial pulses. ABDOMEN: No peritonitis. MUSCULOSKELETAL: No gross deformity of the lower extremities noted. No clubbing. No cyanosis. SKIN: Good skin turgor. Well perfused. NEUROLOGIC: Cranial nerves II through XII grossly intact. No focal or lateralizing signs. PSYCH: Appropriate affect. Alert and oriented to person, place and time. CLINICAL LABS: Hemoglobin improved 9.3-10.4. WBC normal 10.4. Potassium stable 3.8 ASSESSMENT: 1. Gastric outlet obstruction status post gastric bypass 2. Protein malnutrition requiring TPN 3. Anemia 4. Hypokalemia PLAN: 1. May need rehab for strength training. 2. Patient stable from a surgical standpoint Objective - Vital Signs Vital signs: Vital Signs Temp 97.9 F 09/26/20 08:00 Pulse 94 09/26/20 13:50 Resp 16 09/26/20 13:50 BP 134/72 09/26/20 11:55 Pulse Ox 96 09/26/20 11:55 Intake & Output 09/25/20 09/26/20 09/26/20 18:59 06:59 18:59 Intake Total 480 1177.16 1189.075 Output Total 1 Balance 479 1177.16 1189.075 Intake: Intake, IV Titration 697.16 709.075 Amount Dextrose 5% in Water 1, 600 000 ml @ 50 mls/hr IV . Q20H [facility] Rx#:[id number] Heparin Sod,Pork in 0.45% 97.16 119.075 NaCl 25,000 unit In 0.45 % NaCl 1 250ml.bag @ 12 UNITS/KG/HR 6.6 mls/hr IV .Q24H [facility] Rx#:[id number] Mvi, Adult No.4 with Vit 490 K 10 ml Trace (Conc-1Ml/ Dose) 1 ml Sodium Phosphate 15 mmol Potassium Acetate 20 meq Magnesium Sulfate gm 1 gm Sodium Acetate 16 meq In Amino Acid 5%-D15w 1,000 ml @ 70 mls/hr IV .BY DURATION [facility] Rx#: [id number] Sodium Ferric Gluconat- 100 Sucrose 125 mg In Sodium Chloride 0.9% 100 ml @ 100 mls/hr IVPB Q24H [facility] Rx#:[id number] Oral 480 480 480 Output: Urine 1 Other: Voiding Method Diaper Diaper Diaper Incontinent Incontinent Incontinent # Voids 1 1 - Labs CBC & Chem 7: 09/26/20 08:03 09/26/20 08:03 Labs: Abnormal Lab Results - Last 24 Hours (Table) 09/26/20 09/26/20 09/26/20 Range/Units 06:02 08:03 08:03 RBC 3.48 L (3.80-5.40) m/uL Hgb 10.4 L (11.4-16.0) gm/dL Hct 31.1 L (34.0-46.0) % RDW 16.2 H (11.5-15.5) % APTT (22.0-30.0) sec Sodium 136 L (137-145) mmol/L Creatinine 0.24 L (0.52-1.04) mg/dL Glucose 104 H (74-99) mg/dL POC Glucose (mg/dL) 114 H (75-99) mg/dL Calcium 7.7 L (8.4-10.2) mg/dL Alkaline Phosphatase 129 H (38-126) U/L Total Protein 4.5 L (6.3-8.2) g/dL Albumin 2.1 L (3.5-5.0) g/dL 09/26/20 Range/Units 08:03 RBC (3.80-5.40) m/uL Hgb (11.4-16.0) gm/dL Hct (34.0-46.0) % RDW (11.5-15.5) % APTT 52.4 H (22.0-30.0) sec Sodium (137-145) mmol/L Creatinine (0.52-1.04) mg/dL Glucose (74-99) mg/dL POC Glucose (mg/dL) (75-99) mg/dL Calcium (8.4-10.2) mg/dL Alkaline Phosphatase (38-126) U/L Total Protein (6.3-8.2) g/dL Albumin (3.5-5.0) g/dL Assessment and Plan (1) Anemia Current Visit: Yes Status: Acute Code(s): D64.9 - ANEMIA, UNSPECIFIED SNOMED Code(s): 185178774 (2) Hypokalemia Current Visit: Yes Status: Acute Code(s): E87.6 - HYPOKALEMIA SNOMED Code(s): 18898055 (3) Nausea & vomiting Current Visit: Yes Status: Acute Code(s): R11.2 - NAUSEA WITH VOMITING, UNSPECIFIED SNOMED Code(s): 41334718 (4) Gastric outlet obstruction Current Visit: No Status: Acute Code(s): K31.1 - ADULT HYPERTROPHIC PYLORIC STENOSIS SNOMED Code(s): 359894463 (5) Small bowel obstruction Current Visit: No Status: Acute Code(s): K56.69 - OTHER INTESTINAL OBSTRUCT ION * DO NOT USE * SNOMED Code(s): 410923730
--- NOTE | 2020-09-26 17:49 | P.PN ---
Subjective Patient is a 75-year-old female with known history of hypertension, hyperlipidemia, osteoarthritis, coronary artery disease with history of stent pl acement, gait dysfunction and history of Covid pneumonia and has been on oxygen since then, recent history of gastro jejunostomy for gastric outlet obstruction on 09/01/2020 and was discharged to extended care facility on 09/13/2020. She has been doing well until 3 days ago. Started vomiting dark-colored/coffee-ground liquids. Unable to tolerate any oral diet. No bowel meds for the past 3 days. Mild abdominal pain and low-grade fever as per patient. On admission blood pressure was 100/70 pulse 134 and respiration 24 and pulse ox 97% on room air. Chest x-ray showed presence of 8 below the hemidiaphragm probably air within the stomach and interposed bowel. However we are unable to entirely exclude mild free intraperitoneal air.. CT of the abdomen pelvis was done which showed there is swirl pattern within a transition in the right upper quadrant small bowel compatible with the volvulus. Diverticulosis without acute diverticulitis. Laboratory data showed WBC 16.7, hemoglobin 11.8 and platelets 655 sodium 141 potassium 3.7 chloride 83 bicarb is 37 BUN 27 creatinine 1.01 lactic acid 3.7 AST 40 ALT 33 alk phos 352 and troponin 0 0.102 gastric occult blood is positive. COVID-19 PCR not detected.. Patient had EGD 08/25/2020 showed mild gastritis and LA grade B distal esophagitis. 09/18/2020 Patient is still having NG tube drainage and patient the NG tube is in the first part of the creatinine from still has dilated bowel loops probably this. Need to withdraw NG tube a bit. 09/19/2020 Patient is passing gas but I can barely hear any bowel sounds still has an NG tube which drained around 300 mL last night nothing today. Patient is using ice chips. Hemoglobin did drop to 6.3 receiving 1 unit of PRBC transfusion. Patient doesn't have any coffee-ground any emesis any more. 09/20/2020 Patient underwent laparotomy found to have gastric outlet obstructions and adhesions patient underwent lysis of adhesion and conversion of loop gastrojejunostomy to Darek-en-Y gastrojejunostomy. Patient is hypotensive and tachycardic will give a bolus of IV fluids continue with IV fluids for now. Patient still has an NG tube in place. Patient is on opiates concerning her age and comorbidities will discontinue opiates and patient was started on Tylenol IV for pain. 09/21/2020 Patient blood pressure improved patient is passing gas although patient is bit hyperchloremic because of which, switch IV fluids to lactated Ringer's and decrease the rate. Still has an NG tube without any significant drainage today. 09/22/2020 Patient doesn't have any output via NG tube probably this can be removed. Patient is passing gas she say she has had bowel movement unsure about this and I need to verify from the nursing staff. Since hemoglobin did go down to 6.8 probably blood loss anemia from surgery patient will be transfused 1 unit of PRBC patient is requiring oxygen today we'll obtain a chest x-ray patient was receiving IV fluids and patient is presently on D5 water. Patient is bit hyperchloremic. His chest x-ray shows pulmonary edema IV fluids will be discontinued and patient will be given a dose of Lasix. 09/23/2020 Patient still has NG tube patient is alert oriented 3 when I valid the patient apparently patient has episodes of confusion. Patient is passing gas is still not moving her bowel patient is presently on TPN no much output from the NG tube. 09/24/2020 Patient had low potassium which is being replaced today. Patient is found to have DVT of the left upper extremity. I'll increase the dose of Lovenox to 1.5 mg/kg. Patient many to be discharged on Eliquis. We'll check with her general surgery if that is agreeable in starting her on by mouth Eliquis. Subjective: 09/25/2020 this is a pleasant 75 years old female who was admitted on 09/17 for signs and symptoms of gastric outlet obstruction. status post laparotomy and gastr ojejunostomy on 09/01 For her gastric outlet obstruction. The patient was discharge on emergency where she developed coffee-ground emesis after 2 days and with abdominal pain and CT was transferred to the hospital back. She is status post 2 units of blood transfusion. Other chronic medical problems including history of coronary artery disease status post stenting. Yesterday left upper extremity ultrasound showing the venous thrombosis with could be chronic. Has been evaluated by hematology service and they recommended switching her Lovenox 80 mg to heparin drip, low intensity given she is high- risk for bleeding and she may end up needing IVC filter if she could not tolerate anticoagulation. No NG tube in place. Patient complains from some abdominal pain at her previous surgery site Patient currently is awake and alert, no acute distress. He is fully awake and oriented. She tolerates clear liquid diet. No bowel movement but she is passing gas. Left upper extremity showing no signs of swelling, tenderness or warmth. Currently she is also on a Protonix IV 40 mg twice daily Patient also given TPN 09/26/2020 Patient today is clinically stable. No abdominal pain are very minimal. She is tolerating diet and his been advanced to soft diet, surgery team actually cleared the patient today for discharge. Despite that she was kept on TPN because of her significant coronary protein malnutrition, she has a right PICC line with TPN is running. No signs of infection at the site. Also hematology team following the patient for left upper extremity DVT, it looks like this is a chronic DVT. Her upper extremity showing no signs of swelling, redness or tenderness, it looks symmetrical to the other side. Hematology team think anticoagulation carry significant risk of bleeding, and IVC filter could be considered however we will await coppersmith helper team final recommendations regarding this. Other than that she is hemodynamically stable. Labs are stable. Objective - Vital Signs Vital signs: Vital Signs Temp 98.0 F 09/26/20 16:00 Pulse 98 09/26/20 16:00 Resp 16 09/26/20 16:00 BP 128/70 09/26/20 16:00 Pulse Ox 97 09/26/20 16:00 Intake & Output 09/25/20 09/26/20 09/26/20 18:59 06:59 18:59 Intake Total 480 1177.16 1189.075 Output Total 1 Balance 479 1177.16 1189.075 Intake: Intake, IV Titration 697.16 709.075 Amount Dextrose 5% in Water 1, 600 000 ml @ 50 mls/hr IV . Q20H [facility] Rx#:[id number] Heparin Sod,Pork in 0.45% 97.16 119.075 NaCl 25,000 unit In 0.45 % NaCl 1 250ml.bag @ 12 UNITS/KG/HR 6.6 mls/hr IV .Q24H [facility] Rx#:[id number] Mvi, Adult No.4 with Vit 490 K 10 ml Trace (Conc-1Ml/ Dose) 1 ml Sodium Phosphate 15 mmol Potassium Acetate 20 meq Magnesium Sulfate gm 1 gm Sodium Acetate 16 meq In Amino Acid 5%-D15w 1,000 ml @ 70 mls/hr IV .BY DURATION [facility] Rx#: [id number] Sodium Ferric Gluconat- 100 Sucrose 125 mg In Sodium Chloride 0.9% 100 ml @ 100 mls/hr IVPB Q24H [facility] Rx#:[id number] Oral 480 480 480 Output: Urine 1 Other: Voiding Method Diaper Diaper Diaper Incontinent Incontinent Incontinent # Voids 1 3 - Exam GENERAL: The patient is alert and oriented x3, not in any acute distress. Well developed, well nourished. HEENT: Pupils are round and equally reacting to light. EOMI. No scleral icterus. No conjunctival pallor. Normocephalic, atraumatic. No pharyngeal erythema. No thyromegaly. CARDIOVASCULAR: S1 and S2 present. No murmurs, rubs, or gallops. PULMONARY: Chest is clear to auscultation, no wheezing or crackles. ABDOMEN: Soft, nontender, nondistended, normoactive bowel sounds. No palpable organomegaly. Central abdominal wound is closed and is healing. Dressing is in place which is somewhat weight MUSCULOSKELETAL: No joint swelling or deformity. EXTREMITIES: No cyanosis, clubbing, or pedal edema. NEUROLOGICAL: Gross neurological examination did not reveal any focal deficits. SKIN: No rashes. no petechiae. - Labs CBC & Chem 7: 09/26/20 08:03 09/26/20 08:03 Labs: Abnormal Lab Results - Last 24 Hours (Table) 09/26/20 09/26/20 09/26/20 Range/Units 06:02 08:03 08:03 RBC 3.48 L (3.80-5.40) m/uL Hgb 10.4 L (11.4-16.0) gm/dL Hct 31.1 L (34.0-46.0) % RDW 16.2 H (11.5-15.5) % APTT (22.0-30.0) sec Sodium 136 L (137-145) mmol/L Creatinine 0.24 L (0.52-1.04) mg/dL Glucose 104 H (74-99) mg/dL POC Glucose (mg/dL) 114 H (75-99) mg/dL Calcium 7.7 L (8.4-10.2) mg/dL Alkaline Phosphatase 129 H (38-126) U/L Total Protein 4.5 L (6.3-8.2) g/dL Albumin 2.1 L (3.5-5.0) g/dL 09/26/20 Range/Units 08:03 RBC (3.80-5.40) m/uL Hgb (11.4-16.0) gm/dL Hct (34.0-46.0) % RDW (11.5-15.5) % APTT 52.4 H (22.0-30.0) sec Sodium (137-145) mmol/L Creatinine (0.52-1.04) mg/dL Glucose (74-99) mg/dL POC Glucose (mg/dL) (75-99) mg/dL Calcium (8.4-10.2) mg/dL Alkaline Phosphatase (38-126) U/L Total Protein (6.3-8.2) g/dL Albumin (3.5-5.0) g/dL Assessment and Plan Assessment: gastric outlet obstruction: Patient status post recent laparotomy and gastrojejunostomy not eating well, liquid diet. Patient is on TPN. No nausea vomiting -Left Upper extremity DVT which appeared to be chronic DVT. Hematology team on the case recommended heparin drip. Discontinue Lovenox and monitor hemoglobin closely -Acute upper GI bleed during this hospital admission which resolved at this time. Patient is on Protonix. coronary artery disease history of stent placement hyperlipidemia GERD osteoarthritis history of COVID-19 pneumonia in July 2020 DVT prophylaxis with SCDs. Also heparin GI prophylaxis: Protonix
[2020-09-26] MEDS: amLODIPine 5 MG TAB PO SCH (20:06)
[2020-09-27] MEDS: IPRATROPIUM-ALBUTEROL 3 ML NEB INHALATION SCH ×3 (08:01→20:52)
[2020-09-27] MEDS: SYMBICORT 80-4.5 MCG INHALER INHALATION SCH ×2 (08:01→20:53)
[2020-09-27] MEDS: OXYBUTYNIN CHLORIDE 5 MG TAB PO SCH ×3 (09:13→19:56)
[2020-09-27] MEDS: ZINC SULFATE 220 MG CAP PO SCH (09:13)
[2020-09-27] MEDS: PANTOPRAZOLE 40 MG/10 ML VIAL IV SCH ×2 (09:13→19:56)
[2020-09-27] MEDS: FOLIC ACID 1 MG TAB PO SCH (09:14)
[2020-09-27] MEDS: THIAMINE 100 MG TAB PO SCH (09:14)
[2020-09-27] MEDS: FAT EMULSION 20% 250 ML in EMPTY BAG 1 BAG IV SCH (09:14)
[2020-09-27 09:21] LABS: Basophils % (A) 0 %; Eosinophils # (A) 0.2 k/uL (0-0.7); Eosinophils % (A) 2 %; HCT 31.9 % (34.0-46.0); HGB 10.5 gm/dL (11.4-16.0); Hypochromasia Slight; Lymphocytes # (A) 1.5 k/uL (1.0-4.8); Lymphocytes % (A) 15 %; MCH 29.3 pg (25.0-35.0); MCHC 32.8 g/dL (31.0-37.0); MCV 89.3 fL (80.0-100.0); Mean Platelet Volume 9.4; Monocytes # (A) 1.3 k/uL (0-1.0); Monocytes % (A) 12 %; Neutrophils # (A) 7.2 k/uL (1.3-7.7); Neutrophils % (A) 70 %; Platelet Count 422 k/uL (150-450); Poikilocytosis Slight; RBC 3.57 m/uL (3.80-5.40); RDW 15.9 % (11.5-15.5); WBC 10.3 k/uL (3.8-10.6)
[2020-09-27] MEDS: ACETAMINOPHEN TAB 500 MG TAB PO PRN ×2 (09:31→16:04)
[2020-09-27 09:45] LABS: ALT 14 U/L (4-34); AST 23 U/L (14-36); African American GFR (CKD) >90 (>60 ml/min/1.73 sqM); Albumin 2.3 g/dL (3.5-5.0); Alkaline Phosphatase 133 U/L (38-126); Anion Gap 5 mmol/L; Blood Urea Nitrogen 13 mg/dL (7-17); Calcium 7.8 mg/dL (8.4-10.2); Carbon Dioxide 30 mmol/L (22-30); Chloride 103 mmol/L (98-107); Glucose 99 mg/dL (74-99); Magnesium 1.9 mg/dL (1.6-2.3); Non-African American GFR(CKD) >90 (>60 ml/min/1.73 sqM); Phosphorus 2.8 mg/dL (2.5-4.5); Potassium 3.5 mmol/L (3.5-5.1); Sodium 138 mmol/L (137-145); Total Bilirubin 0.4 mg/dL (0.2-1.3); Total Protein 4.8 g/dL (6.3-8.2)
[2020-09-27] MEDS ORDERED: MAGNESIUM SULFATE-D5W PMX 1 GM in DEXTROSE/WATER 1 100ML.BAG IVPB ONE (10:32)
[2020-09-27] MEDS ORDERED: POTASSIUM CHLORIDE ER 20 MEQ TAB.ER PO STA (10:32)
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
[2020-09-27] MEDS: SODIUM FERRIC GLUCONAT-SUCROSE 125 MG in SODIUM CHLORIDE 0.9% 100 ML IVPB SCH (13:49)
--- NOTE | 2020-09-27 14:04 | P.PN ---
Subjective Progress Note Date: 09/27/20 CHIEF COMPLAINT: Vomiting HISTORY OF PRESENT ILLNESS: Patient is status post lysis of adhesions and conve rsion of Loop gastrojejunostomy to Darek-en-Y gastric jejunostomy for adhesions and gastric outlet obstruction. Patient lying in bed comfortably. She reports that her abdominal pain is controlled. She denies any nausea or vomiting. She is having flatus. Denies any bowel movements. She's currently on a dysphagia chopped diet. She did have a temp of 100.4 last night and with a heart rate of 105. She is now afebrile. White count 10.3 hemoglobin 10.5. 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 She was seen by vascular surgery. They are recommending no need for anticoagulation or IVC filter. Patient is receiving IV iron. She is off the TPN. Patient refused work with physical therapy this morning. She reports that she is tired because she did not sleep well last night. Patient seen and examined with Dr. nieves PHYSICAL EXAM: VITAL SIGNS: Reviewed. GENERAL: Well-developed in no acute distress. HEENT: No sclera icterus. Extraocular movements grossly intact. Moist buccal mucosa. Head is atraumatic, normocephalic. ABDOMEN: Soft. Nondistended. Incision site minimal drainage of that incision NEUROLOGIC: Alert and oriented. Cranial nerves II through XII grossly intact. ASSESSMENT: 1. Adhesions and gastric outlet obstruction status post lysis of adhesions and conversion of Loop gastrojejunostomy to Darek-en-Y gastric jejunostomy. 2. Anemia likely due to dilution from IV fluids. Patient did require blood transfusion during this admission PLAN: -Continue dysphagia chopped diet -Continue pain medication as needed -Incentive spirometer ordered -Continue PT OT -Encouraged patient to increase activity -GI prophylaxis Protonix and DVT prophylaxis IV heparin Physician Castings Drafter note has been reviewed by physician. Signing provider agrees with the documented findings, assessment, and plan of care. Objective - Vital Signs Vital signs: Vital Signs Temp 97.7 F 09/27/20 12:05 Pulse 88 09/27/20 13:04 Resp 18 09/27/20 12:05 BP 116/72 09/27/20 12:05 Pulse Ox 95 09/27/20 12:05 Intake & Output 09/26/20 09/27/20 09/27/20 18:59 06:59 18:59 Intake Total 1189.075 64.625 587.663 Output Total 600 600 Balance 1189.075 -535.375 -12.337 Weight 52 kg Intake: Intake, IV Titration 709.075 64.625 107.663 Amount Heparin Sod,Pork in 0.45% 119.075 64.625 107.663 NaCl 25,000 unit In 0.45 % NaCl 1 250ml.bag @ 12 UNITS/KG/HR 6.6 mls/hr IV .Q24H [facility] Rx#:[id number] Mvi, Adult No.4 with Vit 490 K 10 ml Trace (Conc-1Ml/ Dose) 1 ml Sodium Phosphate 15 mmol Potassium Acetate 20 meq Magnesium Sulfate gm 1 gm Sodium Acetate 16 meq In Amino Acid 5%-D15w 1,000 ml @ 70 mls/hr IV .BY DURATION [facility] Rx#: [id number] Sodium Ferric Gluconat- 100 Sucrose 125 mg In Sodium Chloride 0.9% 100 ml @ 100 mls/hr IVPB Q24H [facility] Rx#:[id number] Oral 480 480 Output: Urine 600 600 Other: Voiding Method Diaper Diaper Diaper Incontinent Incontinent Incontinent # Voids 3 4 - Labs CBC & Chem 7: 09/27/20 07:45 09/27/20 07:45 Labs: Abnormal Lab Results - Last 24 Hours (Table) 09/27/20 09/27/20 09/27/20 Range/Units 07:45 07:45 07:45 RBC 3.57 L (3.80-5.40) m/uL Hgb 10.5 L (11.4-16.0) gm/dL Hct 31.9 L (34.0-46.0) % RDW 15.9 H (11.5-15.5) % Monocytes # 1.3 H (0-1.0) k/uL APTT 68.2 H (22.0-30.0) sec Creatinine 0.23 L (0.52-1.04) mg/dL Calcium 7.8 L (8.4-10.2) mg/dL Alkaline Phosphatase 133 H (38-126) U/L Total Protein 4.8 L (6.3-8.2) g/dL Albumin 2.3 L (3.5-5.0) g/dL
[2020-09-27 14:43] VITALS: BMI 22.4
[2020-09-27] MEDS: 1: MVI, ADULT NO.4 WITH VIT K 10 ML, TRACE (CONC-1ML/DOSE) 1 ML, SODIUM PHOSPHATE 15 MMO IV SCH ×7 (19:43)
[2020-09-27] MEDS: amLODIPine 5 MG TAB PO SCH (19:56)
--- NOTE | 2020-09-27 21:09 | P.PN ---
Subjective Patient is a 75-year-old female with known history of hypertension, hyperlipidemia, osteoarthritis, coronary artery disease with history of stent pl acement, gait dysfunction and history of Covid pneumonia and has been on oxygen since then, recent history of gastro jejunostomy for gastric outlet obstruction on 09/01/2020 and was discharged to extended care facility on 09/13/2020. She has been doing well until 3 days ago. Started vomiting dark-colored/coffee-ground liquids. Unable to tolerate any oral diet. No bowel meds for the past 3 days. Mild abdominal pain and low-grade fever as per patient. On admission blood pressure was 100/70 pulse 134 and respiration 24 and pulse ox 97% on room air. Chest x-ray showed presence of 8 below the hemidiaphragm probably air within the stomach and interposed bowel. However we are unable to entirely exclude mild free intraperitoneal air.. CT of the abdomen pelvis was done which showed there is swirl pattern within a transition in the right upper quadrant small bowel compatible with the volvulus. Diverticulosis without acute diverticulitis. Laboratory data showed WBC 16.7, hemoglobin 11.8 and platelets 655 sodium 141 potassium 3.7 chloride 83 bicarb is 37 BUN 27 creatinine 1.01 lactic acid 3.7 AST 40 ALT 33 alk phos 352 and troponin 0 0.102 gastric occult blood is positive. COVID-19 PCR not detected.. Patient had EGD 08/25/2020 showed mild gastritis and LA grade B distal esophagitis. 09/18/2020 Patient is still having NG tube drainage and patient the NG tube is in the first part of the creatinine from still has dilated bowel loops probably this. Need to withdraw NG tube a bit. 09/19/2020 Patient is passing gas but I can barely hear any bowel sounds still has an NG tube which drained around 300 mL last night nothing today. Patient is using ice chips. Hemoglobin did drop to 6.3 receiving 1 unit of PRBC transfusion. Patient doesn't have any coffee-ground any emesis any more. 09/20/2020 Patient underwent laparotomy found to have gastric outlet obstructions and adhesions patient underwent lysis of adhesion and conversion of loop gastrojejunostomy to Darek-en-Y gastrojejunostomy. Patient is hypotensive and tachycardic will give a bolus of IV fluids continue with IV fluids for now. Patient still has an NG tube in place. Patient is on opiates concerning her age and comorbidities will discontinue opiates and patient was started on Tylenol IV for pain. 09/21/2020 Patient blood pressure improved patient is passing gas although patient is bit hyperchloremic because of which, switch IV fluids to lactated Ringer's and decrease the rate. Still has an NG tube without any significant drainage today. 09/22/2020 Patient doesn't have any output via NG tube probably this can be removed. Patient is passing gas she say she has had bowel movement unsure about this and I need to verify from the nursing staff. Since hemoglobin did go down to 6.8 probably blood loss anemia from surgery patient will be transfused 1 unit of PRBC patient is requiring oxygen today we'll obtain a chest x-ray patient was receiving IV fluids and patient is presently on D5 water. Patient is bit hyperchloremic. His chest x-ray shows pulmonary edema IV fluids will be discontinued and patient will be given a dose of Lasix. 09/23/2020 Patient still has NG tube patient is alert oriented 3 when I valid the patient apparently patient has episodes of confusion. Patient is passing gas is still not moving her bowel patient is presently on TPN no much output from the NG tube. 09/24/2020 Patient had low potassium which is being replaced today. Patient is found to have DVT of the left upper extremity. I'll increase the dose of Lovenox to 1.5 mg/kg. Patient many to be discharged on Eliquis. We'll check with her general surgery if that is agreeable in starting her on by mouth Eliquis. Subjective: 09/25/2020 this is a pleasant 75 years old female who was admitted on 09/17 for signs and symptoms of gastric outlet obstruction. status post laparotomy and gastr ojejunostomy on 09/01 For her gastric outlet obstruction. The patient was discharge on emergency where she developed coffee-ground emesis after 2 days and with abdominal pain and CT was transferred to the hospital back. She is status post 2 units of blood transfusion. Other chronic medical problems including history of coronary artery disease status post stenting. Yesterday left upper extremity ultrasound showing the venous thrombosis with could be chronic. Has been evaluated by hematology service and they recommended switching her Lovenox 80 mg to heparin drip, low intensity given she is high- risk for bleeding and she may end up needing IVC filter if she could not tolerate anticoagulation. No NG tube in place. Patient complains from some abdominal pain at her previous surgery site Patient currently is awake and alert, no acute distress. He is fully awake and oriented. She tolerates clear liquid diet. No bowel movement but she is passing gas. Left upper extremity showing no signs of swelling, tenderness or warmth. Currently she is also on a Protonix IV 40 mg twice daily Patient also given TPN 09/26/2020 Patient today is clinically stable. No abdominal pain are very minimal. She is tolerating diet and his been advanced to soft diet, surgery team actually cleared the patient today for discharge. Despite that she was kept on TPN because of her significant coronary protein malnutrition, she has a right PICC line with TPN is running. No signs of infection at the site. Also hematology team following the patient for left upper extremity DVT, it looks like this is a chronic DVT. Her upper extremity showing no signs of swelling, redness or tenderness, it looks symmetrical to the other side. Hematology team think anticoagulation carry significant risk of bleeding, and IVC filter could be considered however we will await hide selector team final recommendations regarding this. Other than that she is hemodynamically stable. Labs are stable. 09/27/2020 For the last 2-3 days patient was eating well, she feels hungry and she'll exclude. She did not has bowel movement but she is passing a lot of gas. And her abdominal pain is significantly improved. No other GI symptoms patient was cleared for discharge by both surgeons Dr. Mccoy yesterday and Dr. Medeiros today. Post operatively patient had left upper extremity ultrasound showing the venous thrombosis with could be chronic. Has been evaluated by hematology service and they recommended switching her Lovenox 80 mg to heparin drip, low intensity given she is high-risk for bleeding and she may end up needing IVC filter if she could not tolerate anticoagulation. Vascular surgery team consulted by hide selector, I discussed the case with MAGALIS Shetty working with Dr. Aguilar, she told me since DVT is chronic, asymptomatic then they do not think patient will need IVC filter. Currently patient denies any pain swelling or erythema of the left upper extremity. Function is intact. Pulsation is present. We will keep a close monitoring. Objective - Vital Signs Vital signs: Vital Signs Temp 97.7 F 09/27/20 12:05 Pulse 88 09/27/20 13:04 Resp 18 09/27/20 12:05 BP 116/72 09/27/20 12:05 Pulse Ox 95 09/27/20 12:05 Intake & Output 09/26/20 09/27/20 09/27/20 18:59 06:59 18:59 Intake Total 1189.075 64.625 347.663 Output Total 600 600 Balance 1189.075 -535.375 -252.337 Weight 52 kg Intake: Intake, IV Titration 709.075 64.625 107.663 Amount Heparin Sod,Pork in 0.45% 119.075 64.625 107.663 NaCl 25,000 unit In 0.45 % NaCl 1 250ml.bag @ 12 UNITS/KG/HR 6.6 mls/hr IV .Q24H [facility] Rx#:[id number] Mvi, Adult No.4 with Vit 490 K 10 ml Trace (Conc-1Ml/ Dose) 1 ml Sodium Phosphate 15 mmol Potassium Acetate 20 meq Magnesium Sulfate gm 1 gm Sodium Acetate 16 meq In Amino Acid 5%-D15w 1,000 ml @ 70 mls/hr IV .BY DURATION [facility] Rx#: [id number] Sodium Ferric Gluconat- 100 Sucrose 125 mg In Sodium Chloride 0.9% 100 ml @ 100 mls/hr IVPB Q24H [facility] Rx#:[id number] Oral 480 240 Output: Urine 600 600 Other: Voiding Method Diaper Diaper Diaper Incontinent Incontinent Incontinent # Voids 3 4 - Exam GENERAL: The patient is alert and oriented x3, not in any acute distress. Well developed, well nourished. HEENT: Pupils are round and equally reacting to light. EOMI. No scleral icterus. No conjunctival pallor. Normocephalic, atraumatic. No pharyngeal erythema. No thyromegaly. CARDIOVASCULAR: S1 and S2 present. No murmurs, rubs, or gallops. PULMONARY: Chest is clear to auscultation, no wheezing or crackles. ABDOMEN: Soft, nontender, nondistended, normoactive bowel sounds. No palpable organomegaly. Central abdominal wound is closed and is healing. Dressing is in place which is somewhat weight MUSCULOSKELETAL: No joint swelling or deformity. EXTREMITIES: No cyanosis, clubbing, or pedal edema. NEUROLOGICAL: Gross neurological examination did not reveal any focal deficits. SKIN: No rashes. no petechiae. - Labs CBC & Chem 7: 09/27/20 07:45 09/27/20 07:45 Labs: Abnormal Lab Results - Last 24 Hours (Table) 09/27/20 09/27/20 09/27/20 Range/Units 07:45 07:45 07:45 RBC 3.57 L (3.80-5.40) m/uL Hgb 10.5 L (11.4-16.0) gm/dL Hct 31.9 L (34.0-46.0) % RDW 15.9 H (11.5-15.5) % Monocytes # 1.3 H (0-1.0) k/uL APTT 68.2 H (22.0-30.0) sec Creatinine 0.23 L (0.52-1.04) mg/dL Calcium 7.8 L (8.4-10.2) mg/dL Alkaline Phosphatase 133 H (38-126) U/L Total Protein 4.8 L (6.3-8.2) g/dL Albumin 2.3 L (3.5-5.0) g/dL Assessment and Plan Assessment: gastric outlet obstruction: Patient status post recent laparotomy and gastrojejunostomy not eating well, liquid diet. Patient is on TPN. No nausea vomiting -Left Upper extremity DVT which appeared to be chronic DVT. Hematology team on the case recommended heparin drip for now. No need for IVC filter per vascular surgery. -Acute upper GI bleed during this hospital admission which resolved at this time. Patient is on Protonix. coronary artery disease history of stent placement hyperlipidemia GERD osteoarthritis history of COVID-19 pneumonia in July 2020 DVT prophylaxis with SCDs. Also heparin GI prophylaxis: Protonix
--- NOTE | 2020-09-27 21:48 | P.PN ---
Subjective Progress Note Date: 09/27/20 With chronic upper extremity dvt and no new Venous thrombolic events noted and recent and recurrent GI bleeding it is felt risks of anticoagulation causing bleeding outweigh the benefit. She maybe increased risk for future clots given sedetary then IVC could be considered however not necessarily beneficial for current chronic clot. Objective - Vital Signs Vital signs: Vital Signs Temp 97.7 F 09/27/20 19:55 Pulse 92 09/27/20 21:26 Resp 16 09/27/20 19:55 BP 127/67 09/27/20 19:55 Pulse Ox 95 09/27/20 19:55 Intake & Output 09/27/20 09/27/20 09/28/20 06:59 18:59 06:59 Intake Total 64.625 908.676 0 Output Total 600 700 Balance -535.375 208.676 0 Weight 52 kg 52 kg Intake: Intake, IV Titration 64.625 428.676 0 Amount Fat Emulsion 20% 250 ml 60 In Empty Bag 1 bag @ 21 mls/hr IV MoWeFr [facility] Rx#: [id number] Heparin Sod,Pork in 0.45% 64.625 168.676 0 NaCl 25,000 unit In 0.45 % NaCl 1 250ml.bag @ 12 UNITS/KG/HR 6.6 mls/hr IV .Q24H [facility] Rx#:[id number] Magnesium Sulfate-D5w Pmx 100 1 gm In Dextrose/Water 1 100ml.bag @ 100 mls/hr IVPB ONCE ONE Rx#: [id number] Sodium Ferric Gluconat- 100 Sucrose 125 mg In Sodium Chloride 0.9% 100 ml @ 100 mls/hr IVPB Q24H [facility] Rx#:[id number] Oral 480 Output: Urine 600 700 Other: Voiding Method Diaper Diaper Diaper Incontinent Incontinent Incontinent # Voids 4 - Exam Thin Alert, porr historian Head: NCNT Lungs: DIminished bibasilar Heart RRRR Abdomen Tender, ND Ext: Trace edema Areas of eccymosis - Labs CBC & Chem 7: 09/27/20 07:45 09/27/20 07:45 Labs: Abnormal Lab Results - Last 24 Hours (Table) 09/27/20 09/27/20 09/27/20 Range/Units 07:45 07:45 07:45 RBC 3.57 L (3.80-5.40) m/uL Hgb 10.5 L (11.4-16.0) gm/dL Hct 31.9 L (34.0-46.0) % RDW 15.9 H (11.5-15.5) % Monocytes # 1.3 H (0-1.0) k/uL APTT 68.2 H (22.0-30.0) sec Creatinine 0.23 L (0.52-1.04) mg/dL Calcium 7.8 L (8.4-10.2) mg/dL Alkaline Phosphatase 133 H (38-126) U/L Total Protein 4.8 L (6.3-8.2) g/dL Albumin 2.3 L (3.5-5.0) g/dL 09/27/20 Range/Units 16:15 RBC (3.80-5.40) m/uL Hgb (11.4-16.0) gm/dL Hct (34.0-46.0) % RDW (11.5-15.5) % Monocytes # (0-1.0) k/uL APTT >200.0 H* (22.0-30.0) sec Creatinine (0.52-1.04) mg/dL Calcium (8.4-10.2) mg/dL Alkaline Phosphatase (38-126) U/L Total Protein (6.3-8.2) g/dL Albumin (3.5-5.0) g/dL Assessment and Plan (1) Chronic deep vein thrombosis (DVT) Current Visit: Yes Status: Acute Code(s): I82.509 - CHRONIC EMBOLISM AND THOMBOS UNSP DEEP VN UNSP LOW EXTRM SNOMED Code(s): 55603952498973374 (2) Anemia due to GI blood loss Current Visit: Yes Status: Chronic Code(s): D50.0 - IRON DEFICIENCY ANEMIA SECONDARY TO BLOOD LOSS (CHRONIC) SNOMED Code(s): 553721102 Plan: Assessment and Recommendations: Normocytic Anemia: - Likely secondary to GI blood loss and malnutrition - Anemia work-up ordered Upper Extremity DVT (Which is chronic): - Currently on Lovenox and recommend to closely monitor serial H and H with this. - Will check lower extremity doppler, IVC could be considered as likely intermodal dispatcher anticoagulation may be difficult with history and recent GI blood loss Plan: BLE Doppler negative, Upper extremity DVT is Chronic. She has known Iron deficiency GI blood loss, Anticoagulation at full dose risk is high. Would continue with Prophylaxis, will supplement Iron, monitor Serial H and H, and for bleeding. Anticoagualtion risk is high with GI bleeding history recent and recurrent. Recommend baby ASA.
[2020-09-27] MEDS: HEPARIN SOD,PORK IN 0.45% NACL 25,000 UNIT in 0.45% NACL 1 250ML.BAG IV SCH (22:58)
[2020-09-28] MEDS: ACETAMINOPHEN TAB 500 MG TAB PO PRN ×2 (00:38→08:21)
[2020-09-28 01:52] LABS: Basophils % (A) 0 %; Eosinophils # (A) 0.1 k/uL (0-0.7); Eosinophils % (A) 2 %; HCT 29.1 % (34.0-46.0); HGB 9.7 gm/dL (11.4-16.0); Hypochromasia Slight; Lymphocytes # (A) 1.5 k/uL (1.0-4.8); Lymphocytes % (A) 17 %; MCH 29.6 pg (25.0-35.0); MCHC 33.2 g/dL (31.0-37.0); MCV 89.1 fL (80.0-100.0); Mean Platelet Volume 8.8; Monocytes # (A) 1.1 k/uL (0-1.0); Monocytes % (A) 12 %; Neutrophils # (A) 5.8 k/uL (1.3-7.7); Neutrophils % (A) 67 %; Platelet Count 381 k/uL (150-450); RBC 3.27 m/uL (3.80-5.40); RDW 15.8 % (11.5-15.5); WBC 8.7 k/uL (3.8-10.6)
[2020-09-28 03:17] VITALS: RESP 18
[2020-09-28] MEDS: FOLIC ACID 1 MG TAB PO SCH (08:20)
[2020-09-28] MEDS: THIAMINE 100 MG TAB PO SCH (08:21)
[2020-09-28] MEDS: ZINC SULFATE 220 MG CAP PO SCH (08:21)
[2020-09-28] MEDS: PANTOPRAZOLE 40 MG/10 ML VIAL IV SCH (08:21)
[2020-09-28] MEDS: OXYBUTYNIN CHLORIDE 5 MG TAB PO SCH ×2 (08:21→11:39)
[2020-09-28] MEDS ORDERED: ASPIRIN 81 MG PO SCH (09:00)
[2020-09-28] MEDS: SYMBICORT 80-4.5 MCG INHALER INHALATION SCH (09:15)
[2020-09-28] MEDS: IPRATROPIUM-ALBUTEROL 3 ML NEB INHALATION SCH ×2 (09:15→12:09)
[2020-09-28] MEDS ORDERED: SODIUM FERRIC GLUCONAT-SUCROSE 125 MG in SODIUM CHLORIDE 0.9% 100 ML IVPB SCH (10:00)
[2020-09-28 10:17] VITALS: TEMP 97.7
--- NOTE | 2020-09-28 10:40 | P.PN ---
Subjective Progress Note Date: 09/28/20 CHIEF COMPLAINT: Vomiting HISTORY OF PRESENT ILLNESS: Patient is status post lysis of adhesions and conve rsion of Loop gastrojejunostomy to Darek-en-Y gastric jejunostomy for adhesions and gastric outlet obstruction on 09/20/20. Patient lying in bed comfortably. She reports that her abdominal pain is controlled. Patient did have some nausea this morning. No vomiting. She is having flatus. Denies any bowel movements. She's currently on a dysphagia chopped diet. Afebrile. WBC 8.7 hemoglobin 9.7. Patient had refused to work with physical therapy yesterday. Patient seen and examined with Dr. nieves PHYSICAL EXAM: VITAL SIGNS: Reviewed. GENERAL: Well-developed in no acute distress. HEENT: No sclera icterus. Extraocular movements grossly intact. Moist buccal mucosa. Head is atraumatic, normocephalic. ABDOMEN: Soft. Nondistended. Dressing clean dry and intact NEUROLOGIC: Alert and oriented. Cranial nerves II through XII grossly intact. ASSESSMENT: 1. Adhesions and gastric outlet obstruction status post lysis of adhesions and conversion of Loop gastrojejunostomy to Darek-en-Y gastric jejunostomy. 2. Anemia likely due to dilution from IV fluids and iron deficiency. Patient did require blood transfusion during this admission. She did receive IV iron PLAN: -Continue dysphagia chopped diet -Continue pain medication as needed -Incentive spirometer ordered -Encouraged patient to work with physical therapy -Encouraged patient to increase activity -GI prophylaxis Protonix and DVT prophylaxis IV heparin Physician Lacemaker note has been reviewed by physician. Signing provider agrees with the documented findings, assessment, and plan of care. Objective - Vital Signs Vital signs: Vital Signs Temp 97.7 F 09/28/20 08:00 Pulse 84 09/28/20 09:26 Resp 18 09/28/20 08:00 BP 140/83 09/28/20 08:00 Pulse Ox 96 09/28/20 08:00 Intake & Output 09/27/20 09/28/20 09/28/20 18:59 06:59 18:59 Intake Total 908.676 32.835 0 Output Total 700 550 Balance 208.676 -517.165 0 Weight 52 kg 52.5 kg Intake: Intake, IV Titration 428.676 32.835 Amount Fat Emulsion 20% 250 ml 60 In Empty Bag 1 bag @ 21 mls/hr IV MoWeFr [facility] Rx#: [id number] Heparin Sod,Pork in 0.45% 168.676 32.835 NaCl 25,000 unit In 0.45 % NaCl 1 250ml.bag @ 12 UNITS/KG/HR 6.6 mls/hr IV .Q24H [facility] Rx#:[id number] Magnesium Sulfate-D5w Pmx 100 1 gm In Dextrose/Water 1 100ml.bag @ 100 mls/hr IVPB ONCE [facility] Rx#: [id number] Sodium Ferric Gluconat- 100 Sucrose 125 mg In Sodium Chloride 0.9% 100 ml @ 100 mls/hr IVPB Q24H [facility] Rx#:[id number] Oral 480 0 Output: Urine 700 550 Other: Voiding Method Diaper Diaper Incontinent Incontinent - Labs CBC & Chem 7: 09/28/20 01:29 09/27/20 07:45 Labs: Abnormal Lab Results - Last 24 Hours (Table) 09/27/20 09/28/20 09/28/20 Range/Units 16:15 01:29 01:29 RBC 3.27 L (3.80-5.40) m/uL Hgb 9.7 L (11.4-16.0) gm/dL Hct 29.1 L (34.0-46.0) % RDW 15.8 H (11.5-15.5) % Monocytes # 1.1 H (0-1.0) k/uL APTT >200.0 H* 139.4 H* (22.0-30.0) sec
[2020-09-28] MEDS: MORPHINE SULFATE 2 MG/ML SYRINGE IVP PRN (11:39)
[2020-09-28 11:48] VITALS: BP 137/78
[2020-09-28 13:01] VITALS: PULSE 78
--- NOTE | 2020-09-28 13:12 | P.DS ---
Providers Date of admission: 09/17/20 10:40 Attending physician: Alberto Feliciano Consults: 09/17/20 11:44 Consult Physician Urgent Consulting Provider: Cesar Medeiros Consult Reason/Comments: Small bowel volvulus, Do you want consulting provider notified?: Yes 09/23/20 22:16 Consult Physician Routine Consulting Provider: Hernando Mehta Consult Reason/Comments: Chronic DVT and GI bleed Do you want consulting provider notified?: Yes, Notify in am 09/27/20 11:07 Consult Physician Routine Consulting Provider: Kelli Aguilar Consult Reason/Comments: IVC filter placement Do you want consulting provider notified?: Yes Primary care physician: Terry Iglesias Hospital Course: Diagnoses -gastric outlet obstruction: Patient status post recent laparotomy and gastrojejunostomy (last admission) . Status post conversion to Darek-en-Y gastric jejunostomy during this admission was on 09/20 -Left Upper extremity DVT which appeared to be chronic DVT. currently asymptomatic , Hematology team on the case recommended to stop anticoagulation for high risk of bleeding and placed her on aspirin instead -Acute upper GI bleed during this hospital admission which resolved at this time. -Mild to moderate calorie protein malnutrition -History of coronary artery disease history of stent placement -hyperlipidemia -GERD -osteoarthritis -history of COVID-19 pneumonia in July 2020 Hospital course: this is a pleasant 75 years old female who was admitted on 09/17 for signs and symptoms of gastric outlet obstruction. status post laparotomy and gastrojejunostomy on 09/01 For her gastric outlet obstruction. The patient was discharge on 09/13 . She came back to the hospital on 09/17 for coffee-ground emesis for 2 days. She is status post 2 units of blood transfusion. Patient evaluated by surgeon and suspected twisting of the gastrojejunostomy resulting in partial bowel obstruction. She underwent exploratory laparotomy and Status post conversion to Darek-en-Y gastric jejunostomy during this admission was 09/[address] Medeiros Also patient was treated for calorie protein malnutrition with a short course of TPN. And she tolerates that well. For the last 2-3 days patient was eating well, she feels hungry and eats 50% of her diet, not has bowel movement yest but she is passing a lot of gas. And her abdominal pain is significantly improved. No other GI symptoms patient was cleared for discharge by both surgeons Dr. Mccoy [address] Medeiros today. Patient is cleared for discharge by hematology team. Post operatively patient had left upper extremity ultrasound showing the venous thrombosis with could be chronic. Has been evaluated by hematology service and they recommended switching her Lovenox 80 mg to heparin drip, low intensity given she is high-risk for bleeding and she may end up needing IVC filter if she could not tolerate anticoagulation. Vascular surgery team consulted by census taker evaluated the patient, I discussed the case with MAGALIS Shetty working with Dr. Aguilar and with Dr. Aguilar today, she told me since DVT is chronic, asymptomatic then patient will not need IVC filter. hematology team then recommended to stop anticoagulation and heparin drip as patient is high-risk for bleeding. Instead she is placed on aspirin 81 mg. Currently patient denies any pain swelling or erythema of the left upper extremity. Function is intact. Pulsation is present. Other than that patient is back to her normal self and she agreeable to be discharged to ECF for further rehab. Patient was cleared for discharge by all consultants including surgical team, hematology and vascular surgery teams Problems and management plan were discussed with the patient and he verbalized understanding and acceptance Patient was found stable and can be discharged to rehab and cardiac prognosis however he needs follow-up as an outpatient. Patient was instructed to follow up with PCP Dr. Iglesias within one week and patient agrees. Also patient was instructed to follow up with census taker Dr. Mehta in one week and her general surgeon Dr. Medeiros in 2 weeks and she agrees Physical exam Gen: patient is a AAOx3, no distress. Thin built CVS: S1-S2, RRR, no murmur Lungs: B/L CTA, no wheezing -Abdomen: soft, no distention, no tenderness, positive bowel sounds. Central midline wound is closed, healing well with no surrounding cellulitis Extremity: no leg edema or induration Time spent more than 35 minutes Patient Condition at Discharge: Serious Plan - Discharge Summary Discharge Rx Participant: No New Discharge Prescriptions: No Action Oxybutynin Chloride 5 mg PO TID@0900,1300,2100 Ergocalciferol (Vitamin D2) [Vitamin D2 (50,000 Iu)] 1,250 mcg PO GARZA Sertraline [Zoloft] 50 mg PO DAILY Fluticasone Nasal Rhome [Flonase Nasal Rhome] 1 - 2 spr EA NOSTRIL BID PRN PRN Reason: Allergy Symptoms Folic Acid 1 mg PO DAILY #30 tablet Multivitamins, Thera [Multivitamin (formulary)] 1 tab PO DAILY #30 tablet Thiamine [Vitamin B-1] 100 mg PO DAILY #30 tablet Ascorbic Acid [Vitamin C] 500 mg PO DAILY 30 Days #30 tablet Zinc 50 mg PO DAILY #30 tablet Ipratropium-Albuterol Nebulize [Duoneb 0.5 mg-3 mg/3 ml Soln] 3 ml INHALATION RT-TID PRN ml PRN Reason: Shortness Of Breath Or Wheezing Pantoprazole Sodium [Protonix] 40 mg PO BID@0900,1700 amLODIPine [Norvasc] 5 mg PO DAILY #30 tab Ondansetron Odt [Zofran ODT] 4 mg PO Q8HR PRN #10 tab PRN Reason: Nausea Sennosides [Senokot] 8.6 mg PO DAILY PRN #30 tablet PRN Reason: Constipation Ipratropium-Albuterol Nebulize [Duoneb 0.5 mg-3 mg/3 ml Soln] 3 ml INHALATION RT-TID ml Acetaminophen Tab [Tylenol] 650 mg PO Q6HR PRN tab PRN Reason: Fever And/ Or Pain Cefuroxime Axetil [Ceftin] 500 mg PO BID 4 Days #8 tab Budesonide/Formoterol Fumarate [Symbicort 80-4.5 Mcg Inhaler] 2 puff INHALATION RT-BID Discharge Medication List Oxybutynin Chloride 5 mg PO TID@0900,1300,2100 02/26/17 [History] Ergocalciferol (Vitamin D2) [Vitamin D2 (50,000 Iu)] 1,250 mcg PO GARZA 07/21/20 [History] Sertraline [Zoloft] 50 mg PO DAILY 07/21/20 [History] amLODIPine [Norvasc] 5 mg PO DAILY #30 tab 07/28/20 [Rx] Fluticasone Nasal Rhome [Flonase Nasal Rhome] 1 - 2 spr EA NOSTRIL BID PRN 08/18/20 [History] Ondansetron Odt [Zofran ODT] 4 mg PO Q8HR PRN #10 tab 08/24/20 [Rx] Ascorbic Acid [Vitamin C] 500 mg PO DAILY 30 Days #30 tablet 05/20/21 [Rx] Folic Acid 1 mg PO DAILY #30 tablet 08/26/20 [Rx] Multivitamins, Thera [Multivitamin (formulary)] 1 tab PO DAILY #30 tablet 08/26/20 [Rx] Sennosides [Senokot] 8.6 mg PO DAILY PRN #30 tablet 08/26/20 [Rx] Thiamine [Vitamin B-1] 100 mg PO DAILY #30 tablet 08/26/20 [Rx] Zinc 50 mg PO DAILY #30 tablet 08/26/20 [Rx] Acetaminophen Tab [Tylenol] 650 mg PO Q6HR PRN tab 09/13/20 [Rx] Cefuroxime Axetil [Ceftin] 500 mg PO BID 4 Days #8 tab 09/13/20 [Rx] Ipratropium-Albuterol Nebulize [Duoneb 0.5 mg-3 mg/3 ml Soln] 3 ml INHALATION RT-TID ml 09/13/20 [Rx] Ipratropium-Albuterol Nebulize [Duoneb 0.5 mg-3 mg/3 ml Soln] 3 ml INHALATION RT-TID PRN ml 09/13/20 [Rx] Budesonide/Formoterol Fumarate [Symbicort 80-4.5 Mcg Inhaler] 2 puff INHALATION RT-BID 09/17/20 [History] Pantoprazole Sodium [Protonix] 40 mg PO BID@0900,1700 09/17/20 [History] Follow up Appointment(s)/Referral(s): Terry Iglesias MD [Primary Care Provider] - 1-2 days Cesar Medeiros MD [STAFF PHYSICIAN] - 1 Week
--- NOTE | 2020-09-28 14:56 | CDI ---
Documentation Clarification Form Date: 09/28/2020 02:43:36 PM From: Flavia Hurst CCS, CCDS Admit Date: 09/17/2020 10:40:00 AM Patient Name: Luisana Cheng Visit Number: [id number] Discharge Date: ATTENTION: The Clinical Documentation Specialists (CDI) and [facility] Coding Staff appreciate your assistance in clarifying documentation. Please respond to the clarification below the line at the bottom and electronically sign. The CDI & [facility] Coding staff will review the response and follow-up if needed. Please note: Queries are made part of the Legal Health Record. If you have any questions, please contact the author of this message via ITS. Dr. Roberth Iraheta. Sheet: Malnutrition is documented in the 09/28 Discharge Summary as Mild to Moderate Protein Calorie Malnutrition. Additional clarification regarding the severity of malnutrition is requested. History/Risk Factors per the 09/17 H/P: Hypertension, Hyperlipidemia, Osteoarthritis, CAD w/Stent placement, Gait dysfunction, COVID Pneumonia in July 2020, Recent Gastrojejunostomy for Gastric Outlet Obstruction on 09/01/2020 with discharge to ECF on 09/13/2020. Clinical Indicators: Presented to the ED on 09/17 via EMS from a residential with Nausea, Vomiting & GI Bleed, recent surgery as described in History. Also tachycardic. ED Clinical Impression: Upper GI Bleed, Abdominal pain, Dehydration, Nausea, Vomiting, Tachycardia status post Laparotomy. 09/17 VS: P 134, R 24, BP 100/70 09/17 LAB: WBC 16.7, Pl Ct 655, Lactic Acid 3.7, AST 40, ALT 53, Alk Phos 352, Troponin 0.102, Total Protein 6.6, Albumin 3.7, Lipase 13 Current BMI 09/17: 22.6 Weight 55 kg, Ht 5 ft, BMI: 23.6, BMI: Normal. Calculated IBW: 45.359 kg, % IBW: 121%. Treatment: Oral nutritional supplement, NGT, Aguilar, IV PPI, IV Zofran, IV NaCl 2,000 mls @ 999 mls/hr, IV Reglan, IV Morphine, IV Rocephin, IV TPN started 09/22. Dietitian consult 09/22 Nutrition Support: Diagnosed with GI Bleed status post abdominal surgery, Nausea & Vomiting. NPO & Clear Liquid x4-5 days. Poor nutrition intake, 0% consumed, NGT in place, Inadequate energy intake. Meeting 75% of estimated goal. Please clarify the type of malnutrition, if known: [ ] Mild Protein-Calorie Malnutrition [ ] Moderate Protein-Calorie Malnutrition [ ] Malnutrition following GI surgery with severity, please specify: [ ] Other condition, please specify [ ] Unable to Determine (Template Last Revised: June 2020) mild to Moderate Protein-Calorie Malnutrition MTDD
--- NOTE | 2020-09-28 18:47 | P.PN ---
Subjective Progress Note Date: 09/28/20 With chronic upper extremity dvt and no new Venous thrombolic events noted and recent and recurrent GI bleeding it is felt risks of anticoagulation causing bleeding outweigh the benefit. Will plan baby aspirin at dscharge and discontinue heparin Objective - Vital Signs Vital signs: Vital Signs Temp 97.7 F 09/28/20 08:00 Pulse 78 09/28/20 12:59 Resp 18 09/28/20 11:47 BP 137/78 09/28/20 11:47 Pulse Ox 97 09/28/20 11:47 Intake & Output 09/27/20 09/28/20 09/28/20 18:59 06:59 18:59 Intake Total 908.676 32.835 0 Output Total 700 550 600 Balance 208.676 -517.165 -600 Weight 52 kg 52.5 kg Intake: Intake, IV Titration 428.676 32.835 Amount Fat Emulsion 20% 250 ml 60 In Empty Bag 1 bag @ 21 mls/hr IV MoWeFr [facility] Rx#: [id number] Heparin Sod,Pork in 0.45% 168.676 32.835 NaCl 25,000 unit In 0.45 % NaCl 1 250ml.bag @ 12 UNITS/KG/HR 6.6 mls/hr IV .Q24H [facility] Rx#:[id number] Magnesium Sulfate-D5w Pmx 100 1 gm In Dextrose/Water 1 100ml.bag @ 100 mls/hr IVPB ONCE ONE Rx#: [id number] Sodium Ferric Gluconat- 100 Sucrose 125 mg In Sodium Chloride 0.9% 100 ml @ 100 mls/hr IVPB Q24H [facility] Rx#:[id number] Oral 480 0 Output: Urine 700 550 600 Other: Voiding Method Diaper Diaper Diaper Incontinent Incontinent Incontinent - Exam Thin Alert, porr historian Head: NCNT Lungs: DIminished bibasilar Heart RRRR Abdomen Tender, ND Ext: Trace edema Areas of eccymosis - Labs CBC & Chem 7: 09/28/20 01:29 09/27/20 07:45 Labs: Abnormal Lab Results - Last 24 Hours (Table) 09/27/20 09/28/20 09/28/20 Range/Units 16:15 01:29 01:29 RBC 3.27 L (3.80-5.40) m/uL Hgb 9.7 L (11.4-16.0) gm/dL Hct 29.1 L (34.0-46.0) % RDW 15.8 H (11.5-15.5) % Monocytes # 1.1 H (0-1.0) k/uL APTT >200.0 H* 139.4 H* (22.0-30.0) sec 09/28/20 Range/Units 10:05 RBC (3.80-5.40) m/uL Hgb (11.4-16.0) gm/dL Hct (34.0-46.0) % RDW (11.5-15.5) % Monocytes # (0-1.0) k/uL APTT 55.0 H (22.0-30.0) sec Assessment and Plan (1) Chronic deep vein thrombosis (DVT) Status: Acute Code(s): I82.509 - CHRONIC EMBOLISM AND THOMBOS UNSP DEEP VN UNSP LOW EXTRM SNOMED Code(s): 34241061820247606 (2) 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 - Will check lower extremity doppler, IVC could be considered as likely chcf anticoagulation may be difficult with history and recent GI blood loss Plan: BLE Doppler negative, Upper extremity DVT is Chronic. She has known Iron deficie ncy GI blood loss, Anticoagulation at full dose risk is high. Would continue with Prophylaxis, will supplement Iron, monitor Serial H and H, and for bleeding. Anticoagualtion risk is high with GI bleeding history recent and recurrent. Recommend baby ASA. NO full dose anticoagulation at this time, discussed in detail with patient. Chronic DVT >5 years no new identified clots
--- NOTE | 2020-09-29 07:36 | CDI ---
Documentation Clarification Form Date: 09/28/2020 02:43:00 PM From: Flavia Hurst CCS, CCDS Admit Date: 09/17/2020 10:40:00 AM Patient Name: Luisana Cheng Visit Number: [id number] Discharge Date: 09/28/2020 06:35:00 PM ATTENTION: The Clinical Documentation Specialists (CDI) and [facility] Coding Staff appreciate your assistance in clarifying documentation. Please respond to the clarification below the line at the bottom and electronically sign. The CDI & [facility] Coding staff will review the response and follow-up if needed. Please note: Queries are made part of the Legal Health Record. If you have any questions, please contact the author of this message via ITS. Dr. Lepe Sheet: Thank you for responding to this query, please further specify the patients severity of malnutrition as either mild or moderate. Malnutrition is documented in the 09/28 Discharge Summary as Mild to Moderate Protein Calorie Malnutrition. Additional clarification regarding the severity of malnutrition is requested. History/Risk Factors per the 09/17 H/P: Hypertension, Hyperlipidemia, Osteoarthritis, CAD w/Stent placement, Gait dysfunction, COVID Pneumonia in July 2020, Recent Gastrojejunostomy for Gastric Outlet Obstruction on 09/01/2020 [facility] Clinical Indicators: Presented to the ED on 09/17 via EMS from a intermediate with Nausea, Vomiting & GI Bleed, recent surgery as described in History. Also tachycardic. ED Clinical Impression: Upper GI Bleed, Abdominal pain, Dehydration, Nausea, Vomiting, Tachycardia status post Laparotomy. 09/17 VS: P 134, R 24, BP 100/70 09/17 LAB: WBC 16.7, Pl Ct 655, Lactic Acid 3.7, AST 40, ALT 53, Alk Phos 352, Troponin 0.102, Total Protein 6.6, Albumin 3.7, Lipase 13 Current BMI 09/17: 22.6 Weight 55 kg, Ht 5 ft, BMI: 23.6, BMI: Normal. Calculated IBW: 45.359 kg, % IBW: 121%. Treatment: Oral nutritional supplement, NGT, Aguilar, IV PPI, IV Zofran, IV NaCl 2,000 mls @ 999 mls/hr, IV Reglan, IV Morphine, IV Rocephin, IV TPN started 09/22. Dietitian consult 09/22 Nutrition Support: Diagnosed with GI Bleed status post abdominal surgery, Nausea & Vomiting. NPO & Clear Liquid x4-5 days. Poor nutrition intake, 0% consumed, NGT in place, Inadequate energy intake. Meeting 75% of estimated goal. Please clarify the type of malnutrition, if known: [ ] Mild Protein-Calorie Malnutrition [ ] Moderate Protein-Calorie Malnutrition (Template Last Revised: June 2020) Moderate Protein-Calorie Malnutrition MTDD
== END 2020-09-28 18:35 | DRG 326 ==
LOC: EC 08:46 → 3SCARD 10:40
PROVIDERS: ADMIT Internal Medicine; ATTEND Internal Medicine
PROC: 0D9670Z Drainage of Stomach with Drainage Device, Via Natural or Artificial Opening (ICD-10-PCS; 2020-09-17)
PROC: 30233N1 Transfusion of Nonautologous Red Blood Cells into Peripheral Vein, Percutaneous Approach (ICD-10-PCS; 2020-09-19)
PROC: 0D160ZA Bypass Stomach to Jejunum, Open Approach (ICD-10-PCS; principal; 2020-09-20 08:40)
PROC: 02HV33Z Insertion of Infusion Device into Superior Vena Cava, Percutaneous Approach (ICD-10-PCS; 2020-09-22)
PROC: 3E0436Z Introduction of Nutritional Substance into Central Vein, Percutaneous Approach (ICD-10-PCS; 2020-09-22)
DX: K31.1 Adult hypertrophic pyloric stenosis (principal); K56.2 Volvulus; E44.0 Moderate protein-calorie malnutrition; I82.722 Chronic embolism and thrombosis of deep veins of left upper extremity; E87.2 Acidosis; D62 Acute posthemorrhagic anemia; K92.2 Gastrointestinal hemorrhage, unspecified; I95.9 Hypotension, unspecified; E83.39 Other disorders of phosphorus metabolism; I11.0 Hypertensive heart disease with heart failure; I50.9 Heart failure, unspecified; E87.8 Other disorders of electrolyte and fluid balance, not elsewhere classified; Z20.822 Contact with and (suspected) exposure to COVID-19; K66.0 Peritoneal adhesions (postprocedural) (postinfection); E86.0 Dehydration; E86.9 Volume depletion, unspecified; E87.6 Hypokalemia; K29.70 Gastritis, unspecified, without bleeding; E78.5 Hyperlipidemia, unspecified; J45.909 Unspecified asthma, uncomplicated; I25.10 Atherosclerotic heart disease of native coronary artery without angina pectoris; K57.30 Diverticulosis of large intestine without perforation or abscess without bleeding; K21.00 Gastro-esophageal reflux disease with esophagitis, without bleeding; K44.9 Diaphragmatic hernia without obstruction or gangrene; N39.3 Stress incontinence (female) (male); R26.9 Unspecified abnormalities of gait and mobility; M19.90 Unspecified osteoarthritis, unspecified site; Z86.16 Personal history of COVID-19; Z68.22 Body mass index [BMI] 22.0-22.9, adult; Z99.81 Dependence on supplemental oxygen; Z79.51 Long term (current) use of inhaled steroids; Z79.899 Other long term (current) drug therapy; Z87.01 Personal history of pneumonia (recurrent); Z87.440 Personal history of urinary (tract) infections; Z86.19 Personal history of other infectious and parasitic diseases; Z91.048 Other nonmedicinal substance allergy status; Z94.5 Skin transplant status; Z87.42 Personal history of other diseases of the female genital tract; Z95.5 Presence of coronary angioplasty implant and graft; Z98.890 Other specified postprocedural states; Z88.0 Allergy status to penicillin; Z88.8 Allergy status to other drugs, medicaments and biological substances; Z82.49 Family history of ischemic heart disease and other diseases of the circulatory system; Z83.2 Family history of diseases of the blood and blood-forming organs and certain disorders involving the immune mechanism
CPT/HCPCS: 36415; 36573; 70450; 71045; 71046; 74019; 74177; 80048; 80053; 81003; 82040; 82271; 82306; 82330; 82607; 82728; 82746; 83540; 83550; 83605; 83690; 83735; 83921; 84100; 84132; 84443; 84478; 84484; 85025; 85027; 85045; 85610; 85730; 86850; 86900; 86901; 86920; 87040; 87635; 93005; 93970; 94640; 96361; 96365; 96366; 96368; 96375; 99285

== ENCOUNTER 2020-10-26 14:15 | Emergency (ER) | payer MEDICARE, OTHER ==
[2020-10-26 14:24] VITALS: RESP 18
[2020-10-26] MEDS ORDERED: ONDANSETRON 4 MG/2 ML VIAL IVP STA (15:26)
[2020-10-26] MEDS ORDERED: SODIUM CHLORIDE 0.9% 1,000 ML IV SCH (15:45)
[2020-10-26 16:18] LABS: Basophils # (A) 0.1 k/uL (0-0.2); Basophils % (A) 1 %; Eosinophils # (A) 0.2 k/uL (0-0.7); Eosinophils % (A) 3 %; HCT 31.8 % (34.0-46.0); HGB 10.4 gm/dL (11.4-16.0); Lymphocytes # (A) 1.4 k/uL (1.0-4.8); Lymphocytes % (A) 20 %; MCHC 32.5 g/dL (31.0-37.0); Mean Platelet Volume 9.1; Monocytes # (A) 0.6 k/uL (0-1.0); Monocytes % (A) 8 %; Neutrophils # (A) 4.6 k/uL (1.3-7.7); Neutrophils % (A) 67 %; Platelet Count 415 k/uL (150-450); RBC 3.57 m/uL (3.80-5.40); RDW 14.5 % (11.5-15.5); WBC 6.9 k/uL (3.8-10.6)
--- NOTE | 2020-10-26 16:23 | XR ---
EXAMINATION TYPE: XR chest 2V DATE OF EXAM: 10/26/2020 COMPARISON: Chest x-ray 09/22/2020 HISTORY: Pain TECHNIQUE: Frontal and lateral views of the chest are obtained. FINDINGS: Right hemidiaphragm remains elevated. There is no evident pneumothorax. Cardiac mediastina l silhouette is stable. Aorta is dense. Bone mineralization is reduced, arthropathy noted within the shoulders, distal acromial spurs are present. No sizable effusion. Multilevel wedge compression defor mities are present within the lumbar spine. NG tube and PICC line have been removed since prior exam. Some minimal patchy basilar density is present on the right, interval improved visualization of the right hemidiaphragm however. IMPRESSION: Stable elevated right hemidiaphragm. There may be basilar atelectasis, correlate to excl ude pneumonia.
[2020-10-26 16:28] LABS: ALT 12 U/L (4-34); AST 21 U/L (14-36); African American GFR (CKD) >90 (>60 ml/min/1.73 sqM); Albumin 2.8 g/dL (3.5-5.0); Alkaline Phosphatase 123 U/L (38-126); Anion Gap 5 mmol/L; Blood Urea Nitrogen 13 mg/dL (7-17); Calcium 8.8 mg/dL (8.4-10.2); Carbon Dioxide 32 mmol/L (22-30); Chloride 104 mmol/L (98-107); Glucose 105 mg/dL (74-99); Lipase 27 U/L (23-300); Non-African American GFR(CKD) >90 (>60 ml/min/1.73 sqM); Potassium 3.3 mmol/L (3.5-5.1); Sodium 141 mmol/L (137-145); Total Bilirubin 0.1 mg/dL (0.2-1.3); Total Protein 5.6 g/dL (6.3-8.2)
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
--- NOTE | 2020-10-26 17:33 | CT ---
EXAMINATION TYPE: CT abdomen pelvis w con DATE OF EXAM: 10/26/2020 COMPARISON: 09/17/2020 HISTORY: Generalized pain CT DLP: 696 mGycm Automated exposure control for dose reduction was used. CONTRAST: Performed with IV Contrast, patient injected with 100 mL of Isovue 300. There is some atelectasis at the lung bases. Heart size is normal. There is no pericardial effusion. There is no pleural effusion. Liver and spleen are intact. Stomach is intact. There is no pancreatic mass. Gallbladder appears norm al. The bile ducts are not dilated. There is no adrenal mass. Kidneys show satisfactory contrast opacification. There is no hydronephrosi s. There is 1 cm cortical cyst posterior left kidney. There is some apparent pre-existing contrast in the left renal collecting system. There is no retroperitoneal adenopathy. There is mild right-sided hydronephrosis and hydroureter. I see no ureteral calculus. Bladder distends smoothly. There are some surgical clips in the upper abdomen around the gastric antrum. I see no bowel obstruction. There is no mesenteric edema. There is no ascites or free air. Appendix is not seen. There is no sign of thick ened appendix. There are sigmoid multiple diverticula. I see no diverticulitis. 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 There is obliteration of t he left hip joint space. There is acetabular spurring. There is calcified posterior uterine fibroid m easuring 3 cm. IMPRESSION: There is mild right-sided hydronephrosis and hydroureter that is increased compared to old exam. No o bstructing calculus seen. No bowel obstruction. Previous gastric surgery. Sigmoid diverticulosis. No diverticulitis.
[2020-10-26] MEDS ORDERED: POTASSIUM CHLORIDE ER 20 MEQ TAB.ER PO STA (17:53)
[2020-10-26 18:34] VITALS: BP 146/83; PULSE 89; TEMP 98.8
== END 2020-10-26 18:58 | disposition home or self-care (01) ==
LOC: EC 14:15
DX: R11.2 Nausea with vomiting, unspecified (principal); R19.7 Diarrhea, unspecified; R53.1 Weakness; R10.13 Epigastric pain; J45.909 Unspecified asthma, uncomplicated; I25.10 Atherosclerotic heart disease of native coronary artery without angina pectoris; K21.9 Gastro-esophageal reflux disease without esophagitis; I11.0 Hypertensive heart disease with heart failure; I50.9 Heart failure, unspecified; Z86.16 Personal history of COVID-19; Z88.0 Allergy status to penicillin; Z91.09 Other allergy status, other than to drugs and biological substances; Z88.8 Allergy status to other drugs, medicaments and biological substances; Z79.51 Long term (current) use of inhaled steroids; Z95.5 Presence of coronary angioplasty implant and graft; Z79.899 Other long term (current) drug therapy; Z98.84 Bariatric surgery status
CPT/HCPCS: 99285; 96374; 96361; 36415; 93005; 80053; 83605; 83690; 84484; 85025; 71046; 74177; J2405; Q9967

== ENCOUNTER 2021-03-29 14:27 | Observation (INO) | payer MEDICARE, OTHER ==
[2021-03-29] MEDS ORDERED: SODIUM CHLORIDE 0.9% 1,000 ML IV STA (17:21)
[2021-03-29] MEDS ORDERED: ONDANSETRON 4 MG/2 ML VIAL IVP STA (17:21)
[2021-03-29] MEDS ORDERED: FAMOTIDINE 20 MG/2 ML VIAL IV STA (17:22)
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
[2021-03-29 18:05] LABS: Basophils % (A) 1 %; Eosinophils # (A) 0.2 k/uL (0-0.7); Eosinophils % (A) 3 %; HCT 41.6 % (34.0-46.0); HGB 13.6 gm/dL (11.4-16.0); Lymphocytes # (A) 1.9 k/uL (1.0-4.8); Lymphocytes % (A) 27 %; MCH 28.2 pg (25.0-35.0); MCHC 32.6 g/dL (31.0-37.0); MCV 86.5 fL (80.0-100.0); Mean Platelet Volume 8.5; Monocytes # (A) 0.5 k/uL (0-1.0); Monocytes % (A) 7 %; Neutrophils # (A) 4.3 k/uL (1.3-7.7); Neutrophils % (A) 60 %; Platelet Count 371 k/uL (150-450); RBC 4.81 m/uL (3.80-5.40); RDW 14.2 % (11.5-15.5); WBC 7.1 k/uL (3.8-10.6)
[2021-03-29 18:10] LABS: Potassium 4.1 mmol/L (3.5-5.1)
[2021-03-29 18:11] LABS: ALT 25 U/L (4-34); AST 25 U/L (14-36); African American GFR (CKD) >90 (>60 ml/min/1.73 sqM); Alkaline Phosphatase 117 U/L (38-126); Amylase 94 U/L (30-110); Anion Gap 9 mmol/L; Blood Urea Nitrogen 17 mg/dL (7-17); Carbon Dioxide 28 mmol/L (22-30); Chloride 100 mmol/L (98-107); Glucose 100 mg/dL (74-99); Lipase 125 U/L (23-300); Non-African American GFR(CKD) 85 (>60 ml/min/1.73 sqM); Sodium 137 mmol/L (137-145); Total Bilirubin 0.4 mg/dL (0.2-1.3); Total Protein 7.5 g/dL (6.3-8.2)
[2021-03-29 18:15] LABS: INR 0.9 (<1.2); Partial Thromboplastin Time 25.3 sec (22.0-30.0); Prothrombin Time 10.2 sec (9.0-12.0)
--- NOTE | 2021-03-29 18:31 | XR ---
EXAMINATION TYPE: XR chest 1V portable DATE OF EXAM: 03/29/2021 COMPARISON: 10/26/2020 HISTORY: Abdominal pain TECHNIQUE: Single view FINDINGS: Heart is normal. There is elevated right diaphragm. Costophrenic angles are clear. There ar e no hilar masses. Bony thorax is intact. IMPRESSION: Elevated diaphragm without change compared to old exam and consistent with paralysis. Nor mal heart.
--- NOTE | 2021-03-29 18:34 | XR ---
EXAMINATION TYPE: XR KUB DATE OF EXAM: 03/29/2021 COMPARISON: 09/18/2020 HISTORY: Abdominal pain TECHNIQUE: Single view FINDINGS: There is no sign of intestinal obstruction or pneumoperitoneum. Fecal pattern is normal. Th ere is calcified uterine fibroid. There is advanced arthritic change in the left hip joint. There is elevated right diaphragm. 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 No free air. No evidence of a bowel obstruction.
[2021-03-29 19:07] LABS: Appearance,Urine Clear (Clear); Bilirubin,Urine Negative (Negative); Blood,Urine Negative (Negative); Color,Urine Light Yellow; Glucose,Urine (UA) Negative (Negative); Ketones,Urine Negative (Negative); Leukocyte Esterase,Urine Large (Negative); Nitrite,Urine Negative (Negative); PH, Urine 6.5 (5.0-8.0); Protein,Urine Negative (Negative); RBC,Urine 1 /hpf (0-5); Specific Gravity,Urine 1.005 (1.001-1.035); Squamous Epithelial Cell,Urine <1 /hpf (0-4); Urobilinogen,Urine <2.0 mg/dL (<2.0); WBC,Urine 57 /hpf (0-5)
--- NOTE | 2021-03-29 19:22 | CT ---
EXAMINATION TYPE: CT abdomen pelvis w con DATE OF EXAM: 03/29/2021 COMPARISON: 10/26/2020 HISTORY: Abdominal pain. CT DLP: 536.4 mGycm Automated exposure control for dose reduction was used. CONTRAST: Performed with IV Contrast, patient injected with 100ml mL of Isovue 300. Images obtained from the diaphragm to the floor the pelvis with IV contrast. There is some mild interstitial infiltrates at the lung bases. Heart size is normal. There is no twin cardial effusion. Liver and spleen are intact. Gallbladder is large and measures 4.5 cm in diameter. The bile ducts are not dilated. There is no pancreatic mass. The stomach is intact. There is previous gastric surgery n oted. There is no adrenal mass. Kidneys show satisfactory contrast opacification. There is no hydronephrosi s. There is 1 cm cortical cyst lower pole left kidney. There is no retroperitoneal adenopathy. Ureter s are not dilated. There is no inguinal hernia. 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 There is moderate osteoarthritis right hip joint. The pelvic ring is intact. There is right side ca lcified uterine fibroid. There is mild wall thickening of the posterior urinary bladder. Delayed imag es show normal renal excretion. There are spondylotic changes in the lumbar spine. There is anterior wedging of L1 and T12 up to 45%. Fractures appear old. There is no sign of mesenteric edema. There is no ascites or free air. There is no evidence of a gardenia l obstruction. IMPRESSION: Previous gastric surgery. No bowel obstruction. Large gallbladder suggestive of some gallbladder dysf unction and is increased compared to old exam. Mild chronic posterior urinary bladder wall thickening of uncertain significance.
[2021-03-29] MEDS ORDERED: NALOXONE 0.4 MG/ML 1 ML VIAL IV PRN (19:51)
[2021-03-29] MEDS ORDERED: ONDANSETRON 4 MG/2 ML VIAL IVP PRN (19:51)
[2021-03-29] MEDS ORDERED: LEVOFLOXACIN 250MG-D5W PMX 250 MG in DEXTROSE/WATER 1 50ML.BAG IVPB ONE (20:30)
--- NOTE | 2021-03-29 21:13 | US ---
EXAMINATION TYPE: US gallbladder DATE OF EXAM: 03/29/2021 COMPARISON: CT CLINICAL HISTORY: abp. Abdominal pain. EXAM MEASUREMENTS: Liver Length: 11.8 cm. Gallbladder Wall: 0.46 cm. Right Kidney: 9.5 x 4.7 x 4.2 cm. Very limited exam due to overlying bowel gas. Pancreas: Not well seen. Liver: Limited visibility, appears coarse in echotexture. Peristalsis seen anterior to right lobe of the liver. Gallbladder: Limited. Measures 4.1 cm in width. Wall measures 0.46 cm- appears thickened. Evidence for sonographic Morocho's sign: No CBD: Not seen. Right Kidney: Hydronephrosis appearance medially. Hyperechoic focus seen: 0.2 x 0.4 x 0.3 cm. Comple x area seen upper pole: 1.5 x 1.0 x 3.0 cm. IMPRESSION: Large gallbladder. No gallstones or dilated ducts. Possible nonobstructing renal calculi.
[2021-03-29] MEDS: SODIUM CHLORIDE 0.9% 1,000 ML IV SCH (22:39)
[2021-03-29] MEDS: ACETAMINOPHEN TAB 325 MG TAB PO PRN (23:32)
[2021-03-29] MEDS: atenoloL 50 MG TAB PO SCH (23:49)
[2021-03-30] MEDS: PANTOPRAZOLE 40 MG/10 ML VIAL IV SCH (07:53)
[2021-03-30] MEDS: atenoloL 50 MG TAB PO SCH ×2 (07:53→20:38)
--- NOTE | 2021-03-30 10:46 | P.GSCN ---
<Lauren He - Last Filed: 03/30/21 11:33> History of Present Illness Consult date: 03/30/21 History of present illness: CHIEF COMPLAINT: Abdominal pain HISTORY OF PRESENT ILLNESS: This is a 75-year-old female who presented with abdominal pain, dysuria and urinary frequency. She reports that she's also been having constipation at home. She has had abdominal pain for about one week. She does report pain across the upper abdomen. She reports her last bowel movement was about 2 days ago and only a small amount. She is having flatus. She also had complained of some chest pain which now has resolved. She does have history of coronary artery disease cardiac stents. Surgical history includes gastrojejunostomy for gastric outlet obstruction in 09/01/2020 and then in September 2020 patient had lysis of adhesions and conversion of loop gastrojejunostomy to a Darek-en-Y gastric jejunostomy for gastric outlet obstruction. Patient had a computed tomography scan of abdomen and pelvis linda wing a large gallbladder and suggestive of gallbladder dysfunction. Also ultrasound of the abdomen showed large gallbladder but no evidence of gallstones or dilated ducts. Patient denies any right upper quadrant pain. She does admit to some nausea after eating. She did report some low-grade fevers at home. Denies any vomiting. Currently tolerating clear liquids. Patient on antibiotics for UTI. PAST MEDICAL HISTORY: See list. PAST SURGICAL HISTORY: See list. MEDICATIONS: See list. ALLERGIES: See list. SOCIAL HISTORY: No illicit drug use. REVIEW OF SYSTEMS: CONSTITUTIONAL: Denies fever or chills. HEENT: Denies blurred vision, vision changes, or eye pain. Denies hemoptysis CARDIOVASCULAR: Denies chest pain or pressure. RESPIRATORY: No shortness of breath. GASTROINTESTINAL: See HPI for pertinent findings HEMATOLOGIC: Denies bleeding disorders. GENITOURINARY: Denies any blood in urine or increased urinary frequency. SKIN: Denies pruitis. Denies rash. PHYSICAL EXAM: VITAL SIGNS: Reviewed GENERAL: Well-developed in no acute distress. HEENT: No sclera icterus. Extraocular movements grossly intact. Moist buccal mucosa. Head is atraumatic, normocephalic. No nasal drainage. ABDOMEN: Soft. Nondistended. Tender to palpation of the left lower abdomen adjacent to the midline scar and suprapubic area. Healed midline scar NEUROLOGIC: Alert and oriented. Cranial nerves II through XII grossly intact. LABORATORY DATA: WBC is 7.1 Hgb 13.6 platelets 371 Sodium 137 potassium 4.1 BUN 17 creatinine 0.67 LFTs normal Lipase 127 Troponin negative 3 Urinalysis positive for UTI IMAGING: Computed tomography scan abdomen and pelvis previous gastric surgery. No bowel obstruction. Large gallbladder suggestive of some gallbladder dysfunction and is increased compared to old exam. Mild chronic posterior urinary bladder wall thickening of uncertain etiology Gallbladder ultrasound large gallbladder. No gallstones or dilated ducts. Possible nonobstructing renal calculi. ASSESSMENT: 1. Abdominal pain with nausea 2. Large gallbladder noted on CAT scan and ultrasound. Patient has no right upper quadrant tenderness. 3. UTI 4. Constipation 5. History of gastric outlet obstruction that required conversion of loop gastrojejunostomy to a Darek-en-Y gastric jejunostomy 6. Chest pain to be evaluated by cardiology PLAN: -Further recommendations forthcoming per surgeon -No surgical intervention planned -Continue supportive care -Advance diet to low fat -Continue antibiotics for UTI -Add colace for constipation Thank you for this consultation Physician Department Store General Manager note has been reviewed by physician. Signing provider agrees with the documented findings, assessment, and plan of care. Past Medical History Past Medical History: Asthma, Coronary Artery Disease (CAD), Chest Pain / Angina, Heart Failure, GERD/Reflux, Hyperlipidemia, Hypertension, Osteoarthritis (OA), Pneumonia, Respiratory Disorder Additional Past Medical History / Comment(s): Pt recently admitted to [facility] on 08/20/20 with chest pain/negative stress test, UTI with sepsis, hypomagnesemia, gait dysfunction, mild protein calorie malnutrition. Other hx: 07/2020 Covid pneumonia and has been on home oxygen since, bronchitis, hiatal hernia, stress incontinence, arthritis "all over", pt thinks possibly told she had RA, gastritis, UTIs, hypokalemia, bradycardia, sinus problems, skni grafts d/t wilburn. History of Any Multi-Drug Resistant Organisms: VRE Year Discovered:: 08/27/20 MDRO Source:: Urine Past Surgical History: Back Surgery, Heart Catheterization, Heart Catheterization With Stent Additional Past Surgical History / Comment(s): PCI with stents 2006, lower back surgery, skin grafts, EGD, colonoscopy, D&C/hysteroscopy. Past Anesthesia/Blood Transfusion Reactions: No Reported Reaction Additional Past Anesthesia/Blood Transfusion Reaction / Comm: Pt unsure if she has recieved blood ever. Date of Last Stent Placement:: 2006 Past Psychological History: No Psychological Hx Reported Additional Psychological History / Comment(s): Pt resides in a home with her sister and pt's disable hetal. Pt uses a cane with assistance. Her sister, Nayla is her caregiver. The home is 2 story. Pt has oxygen at home. Smoking Status: Never smoker Past Alcohol Use History: None Reported Past Drug Use History: None Reported - Past Family History Father Family Medical History: No Reported History Additional Family Medical History / Comment(s): Pt states father in an accident years ago. Mother Family Medical History: Blood Disorder, Congestive Heart Failure (CHF) Additional Family Medical History / Comment(s): Mother around age 83yrs Medications and Allergies Home Medications Medication Instructions Recorded Confirmed Type Oxybutynin Chloride 5 mg PO TID@0900,1300,2100 02/26/17 03/29/21 History Folic Acid 1 mg PO DAILY #30 tablet 08/26/20 03/29/21 Rx Pantoprazole Sodium [Protonix] 40 mg PO DAILY 09/17/20 03/29/21 History Aspirin 81 mg PO DAILY chew 09/28/20 03/29/21 Rx Atenolol [Tenormin] 50 mg PO BID 03/29/21 03/29/21 History Azithromycin [Zithromax Z-pack (6 See Taper PO DAILY 03/29/21 03/29/21 History tabs)] Cetirizine HCl [Zyrtec] 10 mg PO DAILY 03/29/21 03/29/21 History Losartan Potassium [Cozaar] 25 mg PO DAILY 03/29/21 03/29/21 History Allergies Allergy/AdvReac Type Severity Reaction Status Date / Time adhesive Allergy Rash/Hives Verified 03/29/21 18:13 Penicillins Allergy Swelling Verified 03/29/21 18:13 atorvastatin AdvReac Abdominal Verified 03/29/21 18:13 Pain sertraline [From Zoloft] AdvReac Hallucinati Verified 03/29/21 18:13 ons Surgical - Exam Vital Signs Pulse Resp 71 19 03/29/21 15:24 03/29/21 15:24 Results - Labs 03/29/21 17:49 03/29/21 17:49 Abnormal Lab Results - Last 24 Hours (Table) 03/29/21 03/29/21 Range/Units 17:49 17:49 Glucose 100 H (74-99) mg/dL Ur Leukocyte Esterase Large H (Negative) Urine WBC 57 H (0-5) /hpf Microbiology - Last 24 Hours (Table) 03/29/21 17:49 Urine Culture - Preliminary Urine,Voided Diabetes panel 03/29/21 Range/Units 17:49 Sodium 137 (137-145) mmol/L Potassium 4.1 (3.5-5.1) mmol/L Chloride 100 (98-107) mmol/L Carbon Dioxide 28 (22-30) mmol/L BUN 17 (7-17) mg/dL Creatinine 0.67 (0.52-1.04) mg/dL Glucose 100 H (74-99) mg/dL Calcium 10.0 (8.4-10.2) mg/dL AST 25 (14-36) U/L ALT 25 (4-34) U/L Alkaline Phosphatase 117 (38-126) U/L Total Protein 7.5 (6.3-8.2) g/dL Albumin 4.0 (3.5-5.0) g/dL Calcium panel 03/29/21 Range/Units 17:49 Calcium 10.0 (8.4-10.2) mg/dL Albumin 4.0 (3.5-5.0) g/dL Pituitary panel 03/29/21 Range/Units 17:49 Sodium 137 (137-145) mmol/L Potassium 4.1 (3.5-5.1) mmol/L Chloride 100 (98-107) mmol/L Carbon Dioxide 28 (22-30) mmol/L BUN 17 (7-17) mg/dL Creatinine 0.67 (0.52-1.04) mg/dL Glucose 100 H (74-99) mg/dL Calcium 10.0 (8.4-10.2) mg/dL Adrenal panel 03/29/21 Range/Units 17:49 Sodium 137 (137-145) mmol/L Potassium 4.1 (3.5-5.1) mmol/L Chloride 100 (98-107) mmol/L Carbon Dioxide 28 (22-30) mmol/L BUN 17 (7-17) mg/dL Creatinine 0.67 (0.52-1.04) mg/dL Glucose 100 H (74-99) mg/dL Calcium 10.0 (8.4-10.2) mg/dL Total Bilirubin 0.4 (0.2-1.3) mg/dL AST 25 (14-36) U/L ALT 25 (4-34) U/L Alkaline Phosphatase 117 (38-126) U/L Total Protein 7.5 (6.3-8.2) g/dL Albumin 4.0 (3.5-5.0) g/dL <Alber Chi - Last Filed: 03/30/21 11:55> History of Present Illness History of present illness: As above. Patient noted to have a distended gallbladder on both CAT scan and ultrasound. No significant right upper quadrant tenderness however. Pain in his lower abdomen. Agree with advancing diet. No surgery planned at this time. We'll follow. Surgical - Exam Vital Signs Pulse Resp 71 19 03/29/21 15:24 03/29/21 15:24 Results - Labs 03/29/21 17:49 03/29/21 17:49 Abnormal Lab Results - Last 24 Hours (Table) 03/29/21 03/29/21 Range/Units 17:49 17:49 Glucose 100 H (74-99) mg/dL Ur Leukocyte Esterase Large H (Negative) Urine WBC 57 H (0-5) /hpf Microbiology - Last 24 Hours (Table) 03/29/21 17:49 Urine Culture - Preliminary Urine,Voided Diabetes panel 03/29/21 Range/Units 17:49 Sodium 137 (137-145) mmol/L Potassium 4.1 (3.5-5.1) mmol/L Chloride 100 (98-107) mmol/L Carbon Dioxide 28 (22-30) mmol/L BUN 17 (7-17) mg/dL Creatinine 0.67 (0.52-1.04) mg/dL Glucose 100 H (74-99) mg/dL Calcium 10.0 (8.4-10.2) mg/dL AST 25 (14-36) U/L ALT 25 (4-34) U/L Alkaline Phosphatase 117 (38-126) U/L Total Protein 7.5 (6.3-8.2) g/dL Albumin 4.0 (3.5-5.0) g/dL Calcium panel 03/29/21 Range/Units 17:49 Calcium 10.0 (8.4-10.2) mg/dL Albumin 4.0 (3.5-5.0) g/dL Pituitary panel 03/29/21 Range/Units 17:49 Sodium 137 (137-145) mmol/L Potassium 4.1 (3.5-5.1) mmol/L Chloride 100 (98-107) mmol/L Carbon Dioxide 28 (22-30) mmol/L BUN 17 (7-17) mg/dL Creatinine 0.67 (0.52-1.04) mg/dL Glucose 100 H (74-99) mg/dL Calcium 10.0 (8.4-10.2) mg/dL Adrenal panel 03/29/21 Range/Units 17:49 Sodium 137 (137-145) mmol/L Potassium 4.1 (3.5-5.1) mmol/L Chloride 100 (98-107) mmol/L Carbon Dioxide 28 (22-30) mmol/L BUN 17 (7-17) mg/dL Creatinine 0.67 (0.52-1.04) mg/dL Glucose 100 H (74-99) mg/dL Calcium 10.0 (8.4-10.2) mg/dL Total Bilirubin 0.4 (0.2-1.3) mg/dL AST 25 (14-36) U/L ALT 25 (4-34) U/L Alkaline Phosphatase 117 (38-126) U/L Total Protein 7.5 (6.3-8.2) g/dL Albumin 4.0 (3.5-5.0) g/dL
[2021-03-30] MEDS ORDERED: PROMETHAZINE 25 MG TAB PO PRN (10:49)
[2021-03-30] MEDS ORDERED: LEVOFLOXACIN 250MG-D5W PMX 500 MG in DEXTROSE/WATER 1 50ML.BAG IVPB SCH (11:00)
--- NOTE | 2021-03-30 11:00 | P.CRDCN ---
History of Present Illness Consult date: 03/30/21 Chief complaint: Abdominal discomfort/chest discomfort History of present illness: This is a 75-year-old female patient who sees Dr. Sarmiento on regular. With a past medical history significant for coronary artery disease with a prior stenting with unknown details at this point as well as hypertension and dyslipidemia and prior abdominal surgery who requested to see here on the observation unit for further evaluation off discomfort in the epigastric area. For the last few days the patient has been experiencing abdominal discomfort. She stated it started about a week ago. The abdominal discomfort was associated with nausea and vomiting and lately she has been constipated. She was pointing to the left lower abdomen and epigastric area. She had no symptoms of chest pain or chest discomfort according to her. The patient is known to have gastric outlet obstruction and she underwent surgery in August 2020. At that point she was seen by the cardiology service and she was cleared to have the surgery. Also earlier this year she underwent myocardial perfusion imaging stress test and that came in to be unremarkable. During this admission she underwent a computed tomography scan of the abdomen and that revealed large gallbladder. Continue the patient has been investigated by general surgical team. Currently she is chest pain-free and she stated that she had no symptoms of chest pain or chest discomfort. She reports no shortness of breath or dizziness or lightheadedness or presyncope or syncope. The EKG showed sinus rhythm without significant ST or T-wave abnormalities. The blood work was reviewed and she was ruled out for acute coronary event. Past Medical History Past Medical History: Asthma, Coronary Artery Disease (CAD), Chest Pain / Angina, Heart Failure, GERD/Reflux, Hyperlipidemia, Hypertension, Osteoarthritis (OA), Pneumonia, Respiratory Disorder Additional Past Medical History / Comment(s): Pt recently admitted to [facility] on 08/20/20 with chest pain/negative stress test, UTI with sepsis, hypomagnesemia, gait dysfunction, mild protein calorie malnutrition. Other hx: 07/2020 Covid pneumonia and has been on home oxygen since, bronchitis, hiatal hernia, stress incontinence, arthritis "all over", pt thinks possibly told she had RA, gastritis, UTIs, hypokalemia, bradycardia, sinus problems, skni grafts d/t wilburn. History of Any Multi-Drug Resistant Organisms: VRE Date of last positivie culture/infection: 08/27/20 MDRO Source:: Urine Past Surgical History: Back Surgery, Heart Catheterization, Heart Catheterization With Stent Additional Past Surgical History / Comment(s): PCI with stents 2006, lower back surgery, skin grafts, EGD, colonoscopy, D&C/hysteroscopy. Past Anesthesia/Blood Transfusion Reactions: No Reported Reaction Additional Past Anesthesia/Blood Transfusion Reaction / Comment(s): Pt unsure if she has recieved blood ever. Date of Last Stent Placement:: 2006 Past Psychological History: No Psychological Hx Reported Additional Psychological History / Comment(s): Pt resides in a home with her sister and pt's disable hetal. Pt uses a cane with assistance. Her sister, Nayla is her caregiver. The home is 2 story. Pt has oxygen at home. Smoking Status: Never smoker Past Alcohol Use History: None Reported Past Drug Use History: None Reported - Past Family History Father Family Medical History: No Reported History Additional Family Medical History / Comment(s): Pt states father in an accident years ago. Mother Family Medical History: Blood Disorder, Congestive Heart Failure (CHF) Additional Family Medical History / Comment(s): Mother around age 83yrs Medications and Allergies Home Medications Medication Instructions Recorded Confirmed Type Oxybutynin Chloride 5 mg PO TID@0900,1300,2100 02/26/17 03/29/21 History Folic Acid 1 mg PO DAILY #30 tablet 08/26/20 03/29/21 Rx Pantoprazole Sodium [Protonix] 40 mg PO DAILY 09/17/20 03/29/21 History Aspirin 81 mg PO DAILY chew 09/28/20 03/29/21 Rx Atenolol [Tenormin] 50 mg PO BID 03/29/21 03/29/21 History Azithromycin [Zithromax Z-pack (6 See Taper PO DAILY 03/29/21 03/29/21 History tabs)] Cetirizine HCl [Zyrtec] 10 mg PO DAILY 03/29/21 03/29/21 History Losartan Potassium [Cozaar] 25 mg PO DAILY 03/29/21 03/29/21 History Allergies Allergy/AdvReac Type Severity Reaction Status Date / Time adhesive Allergy Rash/Hives Verified 03/29/21 18:13 Penicillins Allergy Swelling Verified 03/29/21 18:13 atorvastatin AdvReac Abdominal Verified 03/29/21 18:13 Pain sertraline [From Zoloft] AdvReac Hallucinati Verified 03/29/21 18:13 ons Physical Exam Vitals: Vital Signs Temp Pulse Pulse Resp BP BP Pulse Ox 03/30/21 07:00 97.9 F 55 L 18 125/73 97 03/30/21 02:28 98.3 F 57 L 20 124/80 95 03/30/21 02:00 20 03/29/21 23:00 98.2 F 54 L 20 179/92 94 L 03/29/21 17:28 98 F 70 18 178/92 99 03/29/21 15:24 71 19 Intake and Output 03/29/21 03/30/21 03/30/21 22:59 06:59 14:59 Intake Total 118 Output Total 750 Balance -750 118 Intake: Oral 118 Output: Urine 750 Other: Voiding Method Bedside Commode Bedside Commode # Voids 2 Weight 52.163 kg - Constitutional General appearance: no acute distress - Neck Carotids: bilateral: upstroke normal - Respiratory Respiratory: bilateral: CTA - Cardiovascular Rhythm: regular Heart sounds: normal: S1, S2 Abnormal Heart Sounds: systolic murmur Results 03/29/21 17:49 03/29/21 17:49 Cardiac Enzymes 03/29/21 03/29/21 03/29/21 Range/Units 17:49 17:49 21:06 AST 25 (14-36) U/L Troponin I <0.012 <0.012 (0.000-0.034) ng/mL 03/30/21 Range/Units 00:04 AST (14-36) U/L Troponin I <0.012 (0.000-0.034) ng/mL Coagulation 03/29/21 Range/Units 17:49 PT 10.2 (9.0-12.0) sec APTT 25.3 (22.0-30.0) sec CBC 03/29/21 Range/Units 17:49 WBC 7.1 (3.8-10.6) k/uL RBC 4.81 (3.80-5.40) m/uL Hgb 13.6 (11.4-16.0) gm/dL Hct 41.6 (34.0-46.0) % Plt Count 371 (150-450) k/uL Comprehensive Metabolic Panel 03/29/21 Range/Units 17:49 Sodium 137 (137-145) mmol/L Potassium 4.1 (3.5-5.1) mmol/L Chloride 100 (98-107) mmol/L Carbon Dioxide 28 (22-30) mmol/L BUN 17 (7-17) mg/dL Creatinine 0.67 (0.52-1.04) mg/dL Glucose 100 H (74-99) mg/dL Calcium 10.0 (8.4-10.2) mg/dL AST 25 (14-36) U/L ALT 25 (4-34) U/L Alkaline Phosphatase 117 (38-126) U/L Total Protein 7.5 (6.3-8.2) g/dL Albumin 4.0 (3.5-5.0) g/dL Current Medications Generic Name Dose Route Start Last Admin Trade Name Freq PRN Reason Stop Dose Admin Acetaminophen 650 mg 03/29/21 23:17 03/29/21 23:32 Acetaminophen Tab 325 Mg Tab PO 650 mg Q6HR PRN Administration Fever and/ or Pain Atenolol 50 mg 03/29/21 23:30 03/30/21 07:53 Atenolol 50 Mg Tab PO 50 mg BID ELMER Administration Docusate Sodium 100 mg 03/30/21 10:45 Docusate 100 Mg Cap PO BID ELMER Sodium Chloride 1,000 mls @ 75 mls/hr 03/29/21 20:00 03/29/21 22:39 Saline 0.9% IV 75 mls/hr .[id number] ELMER Administration Levofloxacin 500 mg/ IV 100 mls @ 100 mls/hr 03/30/21 20:00 Solution IVPB Q24H ELMER Naloxone HCl 0.2 mg 03/29/21 19:51 Naloxone 0.4 Mg/Ml 1 Ml Vial IV Q2M PRN Opioid Reversal Pantoprazole Sodium 40 mg 03/30/21 09:00 03/30/21 07:53 Pantoprazole 40 Mg/10 Ml Vial IV 40 mg DAILY ELMER Administration Promethazine HCl 12.5 mg 03/30/21 10:49 Promethazine 25 Mg Tab PO Q6HR PRN Nausea And Vomiting Intake and Output 03/29/21 03/30/21 03/30/21 22:59 06:59 14:59 Intake Total 118 Output Total 750 Balance -750 118 Intake: Oral 118 Output: Urine 750 Other: Voiding Method Bedside Commode Bedside Commode # Voids 2 Weight 52.163 kg 03/29/21 17:49 03/29/21 17:49 Assessment and Plan Assessment: Assessment #1 abdominal discomfort associated with nausea and vomiting and also constipation #2 large gallbladder noted on computed tomography scan #3 urinary frequency/UTI #4 coronary artery disease seems to be stable #5 multiple comorbid conditions Plan #1 acute coronary syndrome was ruled out #2 no need for any further cardiac workup. Please note that the patient had a stress test earlier the seat and that showed no ischemia #3 we will follow-up with the patient on when necessary case Thank you for allowing us participate in her care
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
[2021-03-30] MEDS: DOCUSATE 100 MG CAP PO SCH ×2 (12:12→20:39)
[2021-03-30] MEDS: SODIUM CHLORIDE 0.9% 1,000 ML IV SCH (12:13)
[2021-03-30] MEDS ORDERED: LEVOFLOXACIN 250MG-D5W PMX 250 MG in DEXTROSE/WATER 1 50ML.BAG IVPB SCH (20:00)
[2021-03-30] MEDS ORDERED: LEVOFLOXACIN 500MG-D5W PMX 500 MG in DEXTROSE/WATER 1 100ML.BAG IVPB SCH (20:00)
[2021-03-30] MEDS: ACETAMINOPHEN TAB 325 MG TAB PO PRN (20:38)
[2021-03-31] MEDS: SODIUM CHLORIDE 0.9% 1,000 ML IV SCH ×2 (01:01→18:09)
[2021-03-31] MEDS: PANTOPRAZOLE 40 MG/10 ML VIAL IV SCH (07:35)
[2021-03-31] MEDS: DOCUSATE 100 MG CAP PO SCH ×2 (07:35→19:18)
[2021-03-31] MEDS: atenoloL 50 MG TAB PO SCH ×2 (07:35→19:20)
--- NOTE | 2021-03-31 08:47 | XR ---
EXAMINATION TYPE: XR KUB DATE OF EXAM: 03/31/2021 COMPARISON: 03/29/2021 HISTORY: Pain TECHNIQUE: One view abdominal series FINDINGS: Vascular calcifications are seen and there is degenerative and postsurgical change involving the vert ebral column. Severe arthropathy of the hips complete remodeling of the left femoral head. Calcificat ion the right hemipelvis likely related to uterine fibroid. The bowel gas pattern nonspecific with ex tensive retained fecal debris. IMPRESSION: 1. Nonspecific abdomen correlate for constipation. See above.
[2021-03-31] MEDS: ACETAMINOPHEN TAB 325 MG TAB PO PRN ×2 (08:57→21:57)
--- NOTE | 2021-03-31 11:11 | P.PN ---
<Lauren He - Last Filed: 03/31/21 11:00> Subjective Progress Note Date: 03/31/21 CHIEF COMPLAINT: Abdominal pain HISTORY OF PRESENT ILLNESS: Patient complaining of abdominal pain. Pain is not worsened since admission. Denies any nausea or vomiting. She reports that she has a fullness after eating. Denies any right upper quadrant tenderness. She did have a small bowel movement yesterday. Afebrile. No new labs for today. KUB x-ray nonspecific abdomen correlate for constipation. PHYSICAL EXAM: VITAL SIGNS: Reviewed. GENERAL: Well-developed in no acute distress. HEENT: No sclera icterus. Extraocular movements grossly intact. Moist buccal mucosa. Head is atraumatic, normocephalic. ABDOMEN: Soft. Nondistended. Tenderness palpation of the left and middle lower abdomen NEUROLOGIC: Alert and oriented. Cranial nerves II through XII grossly intact. ASSESSMENT: 1. Abdominal pain likely due to constipation 2. Distended gallbladder noted on CAT scan and ultrasound. Patient has no right upper quadrant tenderness 3. History of gastric outlet obstruction that required conversion of loop gastr ojejunostomy to a Darek-en-Y gastric jejunostomy PLAN: -No surgical intervention planned -Add MiraLAX to help treat constipation -Continue stool softener -Continue low-fat diet Physician Porcelain Buildup Assistant note has been reviewed by physician. Signing provider agrees with the documented findings, assessment, and plan of care. Objective - Vital Signs Vital signs: Vital Signs Temp 97.0 F L 03/31/21 07:00 Pulse 70 03/31/21 08:00 Resp 16 03/31/21 08:00 BP 108/67 03/31/21 07:00 Pulse Ox 98 03/31/21 07:00 Intake & Output 03/30/21 03/31/21 03/31/21 18:59 06:59 18:59 Intake Total 118 240 Output Total 700 Balance 118 -700 240 Intake: Oral 118 240 Output: Urine 700 Other: Voiding Method Bedside Commode Bedside Commode # Voids 4 2 # Bowel Movements 1 - Labs CBC & Chem 7: 03/29/21 17:49 03/29/21 17:49 Labs: Microbiology - Last 24 Hours (Table) 03/29/21 17:49 Urine Culture - Final Urine,Voided <Alber Chi - Last Filed: 03/31/21 16:25> Subjective As above. X-rays show constipation. Patient says she had some left upper abdominal pain and left lower abdominal pain after meals. Will add citrate of magnesia for constipation. Will follow. Objective - Vital Signs Vital signs: Vital Signs Temp 97.6 F 03/31/21 15:00 Pulse 64 03/31/21 15:00 Resp 16 03/31/21 15:00 BP 154/87 03/31/21 15:00 Pulse Ox 98 03/31/21 15:00 Intake & Output 03/30/21 03/31/21 03/31/21 18:59 06:59 18:59 Intake Total 118 360 Output Total 700 Balance 118 -700 360 Intake: Oral 118 360 Output: Urine 700 Other: Voiding Method Bedside Commode Bedside Commode # Voids 4 2 1 # Bowel Movements 1 - Labs CBC & Chem 7: 03/29/21 17:49 03/29/21 17:49 Labs: Microbiology - Last 24 Hours (Table) 03/29/21 17:49 Urine Culture - Final Urine,Voided
[2021-03-31] MEDS: polyethylene glycoL 3350 17 GM POWD.PACK PO SCH (12:21)
[2021-03-31] MEDS ORDERED: MAGNESIUM CITRATE 296 ML BOTTLE PO ONE (16:45)
--- NOTE | 2021-03-31 21:11 | P.PN ---
Subjective This is a pleasant 75 years old female with past medical history of Asthma, Coronary Artery Disease, Heart Failure, GERD, Hyperlipidemia, Hypertension, Osteoarthritis , gait dysfunction, 07/2020 Covid pneumonia and has been on home oxygen since, bronchitis, hiatal hernia, stress incontinence, arthritis "all over", patient presents because she was urinating a lot with dysuria, associated she describes as stomach upset for about one week, her pain really in the lower abdomen and nonradiating, moderate in severity with nonspecific in character. She has good appetite but when she is her stomach upset get worse. She denies smoking, alcohol or illicit drugs. She has some coughing and phlegm but no chest pain or dyspnea. No headache or weakness or numbness. On admission vitals are stable. Labs including CBC, BMP, liver enzymes, troponin Less Than 0.012. Urinalysis Is Negative. Also There Is a Large Leukocyte Esterase. CT of the abdomen and pelvis showing previous gastric surgery. No bowel obstruction. Large gallbladder suggestive of some gallbladder dysfunction and is increased compared to old exam. Mild chronic posterior urinary bladder wall thickening of uncertain significance. Gallbladder ultrasound showing gallbladder measures 4.1 cm with thick wall. EKG showing normal sinus rhythm at [address]-T changes Chest x-ray: No acute process, chronic elevated diaphragm Emergency room patient was sent IV fluid, Pepcid, Zofran and Levaquin 03/31/2021 pt today is doing well, she is fully awake and alert , lying in bed comfortable, no specific complaint, eating well 100 % of her diet . vitals are stable and repeat KUB shows no obstruction , possible stool in colon, pt states she had small bowel movement yesterday her abd is soft and once pt is detracted pt does not complain from abd tenderness no matter how long i palpate her abd , superficial and deep , but once detraction is taken away palpation becomes very tender to her i think we can dc pt pending surgical team clearance . d/w staff and surgery team today possible dc in 24-48 hours once surgery team to clear her Objective - Vital Signs Vital signs: Vital Signs Temp 97.0 F L 03/31/21 07:00 Pulse 70 03/31/21 08:00 Resp 16 03/31/21 08:00 BP 108/67 03/31/21 07:00 Pulse Ox 98 03/31/21 07:00 Intake & Output 03/30/21 03/31/21 03/31/21 18:59 06:59 18:59 Intake Total 118 240 Output Total 700 Balance 118 -700 240 Intake: Oral 118 240 Output: Urine 700 Other: Voiding Method Bedside Commode Bedside Commode # Voids 4 2 1 # Bowel Movements 1 - Exam GENERAL: The patient is alert and awake, not in any acute distress. Well developed, well nourished. HEENT: Pupils are round and equally reacting to light. EOMI. No scleral icterus. No conjunctival pallor. Normocephalic, atraumatic. No pharyngeal erythema. No thyromegaly. CARDIOVASCULAR: S1 and S2 present. No murmurs, rubs, or gallops. PULMONARY: Chest is clear to auscultation, no wheezing or crackles. ABDOMEN: Soft, nontender, nondistended, normoactive bowel sounds. No palpable organomegaly. MUSCULOSKELETAL: No joint swelling or deformity. EXTREMITIES: No cyanosis, clubbing, or pedal edema. NEUROLOGICAL: Gross neurological examination did not reveal any focal deficits. SKIN: No rashes. no petechiae. - Labs CBC & Chem 7: 03/29/21 17:49 03/29/21 17:49 Labs: Microbiology - Last 24 Hours (Table) 03/29/21 17:49 Urine Culture - Final Urine,Voided Assessment and Plan Assessment: Possible acute urinary tract infection with suprapubic tenderness possible acute cholecystitis, Possible porceline GB History of GERD Hypertension. Hyperlipidemia History of osteoarthritis History of coronary artery disease History of asthma History of Covid pneumonia on 07/2020 and currently on chronic hypoxic respiratory failure since then Hiatal hernia History of stress incontinence History of arthralgia Plan: This is a pleasant 75 years old female who presents with acute urinary tract infection. Possible gallbladder disease and porceline GB tolerate diet well, continue with laxative Surgical consult Labs and medication were reviewed.. Continue same treatment. Continue with symptomatic treatment. Resume home medication. Monitor lytes and vitals. DVT and GI prophylaxis. Further recommendations depends on the clinical course of the patient DVT prophylaxis: Subcutaneous heparin GI Prophylaxis: Pepcid
[2021-03-31] MEDS: amLODIPine 2.5 MG TAB PO SCH (23:08)
[2021-03-31] MEDS: HEPARIN SODIUM,PORCINE/PF 5,000 UNIT/0.5 ML SYRINGE SQ SCH (23:08)
[2021-04-01 07:20] VITALS: RESP 17
[2021-04-01] MEDS: atenoloL 50 MG TAB PO SCH (07:52)
[2021-04-01] MEDS: amLODIPine 2.5 MG TAB PO SCH (07:52)
[2021-04-01] MEDS: PANTOPRAZOLE 40 MG/10 ML VIAL IV SCH (07:52)
[2021-04-01] MEDS: HEPARIN SODIUM,PORCINE/PF 5,000 UNIT/0.5 ML SYRINGE SQ SCH (07:52)
[2021-04-01] MEDS: DOCUSATE 100 MG CAP PO SCH (07:52)
[2021-04-01] MEDS: polyethylene glycoL 3350 17 GM POWD.PACK PO SCH (07:53)
--- NOTE | 2021-04-01 08:34 | P.PN ---
Subjective Progress Note Date: 04/01/21 Principal diagnosis: Abdominal pain Patient had multiple stools last night. Feels much better she says. Feels less bloated she says. Denies pain currently. Tolerating diet. Objective - Vital Signs Vital signs: Vital Signs Temp 98.1 F 04/01/21 07:00 Pulse 56 L 04/01/21 07:00 Resp 17 04/01/21 07:00 BP 128/75 04/01/21 07:00 Pulse Ox 98 04/01/21 07:00 Intake & Output 03/31/21 04/01/21 04/01/21 18:59 06:59 18:59 Intake Total 480 Output Total 200 Balance 480 -200 Intake: Oral 480 Output: Urine 200 Other: Voiding Method Bedside Commode Bedside Commode Diaper Incontinent # Voids 1 1 # Bowel Movements 1 - Exam Abdomen: Soft, nondistended, nontender - Labs CBC & Chem 7: 03/29/21 17:49 03/29/21 17:49 Assessment and Plan (1) Abdominal pain Narrative/Plan: Patient's symptoms are improved after catharsis. Continue diet. Continue stool softeners. Current Visit: Yes Status: Acute Code(s): R10.9 - UNSPECIFIED ABDOMINAL PAIN SNOMED Code(s): 36031647
[2021-04-01 14:06] VITALS: BP 131/76; PULSE 69; TEMP 98.3
--- NOTE | 2021-04-01 21:07 | P.DS ---
Providers Date of admission: 03/29/21 19:51 Attending physician: Genie Trammell Consults: 03/29/21 19:51 Consult Physician Routine Consulting Provider: Rafal Rubalcava Consult Reason/Comments: cp Do you want consulting provider notified?: Yes Consult Physician Routine Consulting Provider: Cesar Medeiros Consult Reason/Comments: abp, review ct Do you want consulting provider notified?: Yes Primary care physician: Radha aGrdner Hospital Course: Diagnoses: Abdominal pain, mild. Secondary to constipation. Improved upon discharge with patient having several bowel movements Asymptomatic bacteriuria. No acute urinary tract infection . Urine culture grown only tiara Possible porceline GB History of GERD Hypertension. Hyperlipidemia History of osteoarthritis History of coronary artery disease History of asthma History of Covid pneumonia on 07/2020 and currently on chronic hypoxic respiratory failure since then Hiatal hernia History of stress incontinence History of arthralgia Hospital course: This is a pleasant 75 years old female with past medical history of Asthma, Coronary Artery Disease, Heart Failure, GERD, Hyperlipidemia, Hypertension, Osteoarthritis , gait dysfunction, 07/2020 Covid pneumonia and has been on home oxygen since, bronchitis, hiatal hernia, stress incontinence, arthritis "all over", patient presents because she had abdominal pain which was secondary to constipation. Patient today had several bowel movements and her abdominal pain completely resolved. Abdominal examination was soft. Surgery team evaluated the patient and Dr. Chi talk to me today and he cleared her for discharge. Urine tract infection suspected on admission however her urine culture came back negative and antibiotics were stopped. Date of discharge patient back to her baseline mental status. She denies any other symptoms. No chest pain or dyspnea. No change in urine habits. No fever. Problems and management plan were discussed with the patient and he verbalized understanding and acceptance Patient was found stable and can be discharged home however he needs follow-up as an outpatient. Patient was instructed to follow up with PCP Dr. Wisdom within one week and patient agrees Physical exam Gen: patient is a AAOx3, no distress CVS: S1-S2, RRR, no murmur Lungs: B/L CTA, no wheezing Abdomen: soft, no distention, no tenderness, positive bowel sounds Extremity: no leg edema or induration Time spent more than 35 minutes Plan - Discharge Summary Discharge Rx Participant: No New Discharge Prescriptions: New Docusate [Colace] 100 mg PO BID PRN 3 Days #6 cap PRN Reason: Constipation polyethylene glycoL 3350 [Miralax] 17 gm PO DAILY PRN #1 packet PRN Reason: Constipation Promethazine [Phenergan] 12.5 mg PO DAILY PRN 2 Days #2 tab PRN Reason: Nausea And Vomiting amLODIPine [Norvasc] 2.5 mg PO DAILY #30 tab Continue Oxybutynin Chloride 5 mg PO TID@0900,1300,2100 Folic Acid 1 mg PO DAILY #30 tablet Pantoprazole Sodium [Protonix] 40 mg PO DAILY Aspirin 81 mg PO DAILY chew Atenolol [Tenormin] 50 mg PO BID Cetirizine HCl [Zyrtec] 10 mg PO DAILY Discontinued Losartan Potassium [Cozaar] 25 mg PO DAILY Azithromycin [Zithromax Z-pack (6 tabs)] See Taper PO DAILY Discharge Medication List Oxybutynin Chloride 5 mg PO TID@0900,1300,2100 02/26/17 [History] Folic Acid 1 mg PO DAILY #30 tablet 08/26/20 [Rx] Pantoprazole Sodium [Protonix] 40 mg PO DAILY 09/17/20 [History] Aspirin 81 mg PO DAILY chew 09/28/20 [Rx] Atenolol [Tenormin] 50 mg PO BID 03/29/21 [History] Cetirizine HCl [Zyrtec] 10 mg PO DAILY 03/29/21 [History] Docusate [Colace] 100 mg PO BID PRN 3 Days #6 cap 03/31/21 [Rx] Promethazine [Phenergan] 12.5 mg PO DAILY PRN 2 Days #2 tab 03/31/21 [Rx] polyethylene glycoL 3350 [Miralax] 17 gm PO DAILY PRN #1 packet 03/31/21 [Rx] amLODIPine [Norvasc] 2.5 mg PO DAILY #30 tab 04/01/21 [Rx] Follow up Appointment(s)/Referral(s): Kendra Garcia MD [Primary Care Provider] - 1-2 days (please call sunday for an appointment thank you ) [facility], [NON-STAFF] - As Needed (please call sunday for an appointment if needed ) Patient Instructions/Handouts: Constipation (DC), Low Fat Diet (GEN), Acute Abdominal Pain (GEN) Activity/Diet/Wound Care/Special Instructions: Heart healthy diet Activity is restricted till you see your doctor Discharge Disposition: HOME WITH HOME HEALTH SERVICES
== END 2021-04-01 14:53 | disposition home health service (06) ==
LOC: EC 14:27 → 6NMEDSUR 19:51
PROVIDERS: ADMIT Hospitalist; ATTEND Hospitalist
DX: K59.00 Constipation, unspecified (principal); J96.11 Chronic respiratory failure with hypoxia; U09.9 Post COVID-19 condition, unspecified; R82.71 Bacteriuria; I11.0 Hypertensive heart disease with heart failure; I50.9 Heart failure, unspecified; K21.9 Gastro-esophageal reflux disease without esophagitis; R26.9 Unspecified abnormalities of gait and mobility; E78.5 Hyperlipidemia, unspecified; M19.90 Unspecified osteoarthritis, unspecified site; I25.10 Atherosclerotic heart disease of native coronary artery without angina pectoris; J98.6 Disorders of diaphragm; D25.9 Leiomyoma of uterus, unspecified; N13.30 Unspecified hydronephrosis; K82.8 Other specified diseases of gallbladder; J45.909 Unspecified asthma, uncomplicated; Z16.21 Resistance to vancomycin; K44.9 Diaphragmatic hernia without obstruction or gangrene; N39.3 Stress incontinence (female) (male); Z20.822 Contact with and (suspected) exposure to COVID-19; Z99.81 Dependence on supplemental oxygen; Z79.82 Long term (current) use of aspirin; Z79.899 Other long term (current) drug therapy; Z88.0 Allergy status to penicillin; Z88.8 Allergy status to other drugs, medicaments and biological substances; Z91.048 Other nonmedicinal substance allergy status; Z86.16 Personal history of COVID-19; Z87.01 Personal history of pneumonia (recurrent); Z87.440 Personal history of urinary (tract) infections; Z87.19 Personal history of other diseases of the digestive system; Z86.19 Personal history of other infectious and parasitic diseases; Z95.5 Presence of coronary angioplasty implant and graft; Z98.890 Other specified postprocedural states; Z82.49 Family history of ischemic heart disease and other diseases of the circulatory system; Z83.2 Family history of diseases of the blood and blood-forming organs and certain disorders involving the immune mechanism
CPT/HCPCS: 96376 ×2; 96361 ×3; 96365; 96372 ×2; 96375 ×2; 99285; 36415; 93005; 80053; 82150; 83690; 84484 ×2; 85025; 85610; 85730; 81001; 87086; 87635; 71045; 74018 ×2; 76705; 74177; G0378 ×4; J2405; J1956 ×2; C9113 ×3; Q9967; J1644 ×2

== ENCOUNTER 2021-08-26 00:10 | Inpatient (IN) | payer MEDICARE, OTHER ==
[2021-08-26] MEDS ORDERED: SODIUM CHLORIDE 0.9% 1,000 ML IV STA ×2 (00:59)
[2021-08-26] MEDS ORDERED: PANTOPRAZOLE 40 MG/10 ML VIAL IVP STA (00:59)
[2021-08-26] MEDS ORDERED: ONDANSETRON 4 MG/2 ML VIAL IVP STA (00:59)
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
[2021-08-26 01:42] LABS: Basophils # (A) 0.1 k/uL (0-0.2); Basophils % (A) 1 %; Eosinophils # (A) 0.2 k/uL (0-0.7); Eosinophils % (A) 2 %; HCT 38.1 % (34.0-46.0); Lymphocytes # (A) 0.7 k/uL (1.0-4.8); Lymphocytes % (A) 7 %; MCH 26.3 pg (25.0-35.0); MCHC 31.4 g/dL (31.0-37.0); MCV 83.7 fL (80.0-100.0); Mean Platelet Volume 9.3; Monocytes # (A) 0.5 k/uL (0-1.0); Monocytes % (A) 5 %; Neutrophils # (A) 8.4 k/uL (1.3-7.7); Neutrophils % (A) 85 %; Platelet Count 317 k/uL (150-450); RBC 4.56 m/uL (3.80-5.40); RDW 15.7 % (11.5-15.5); WBC 9.9 k/uL (3.8-10.6)
[2021-08-26 01:49] LABS: ALT 25 U/L (4-34); AST 37 U/L (14-36); African American GFR (CKD) >90 (>60 ml/min/1.73 sqM); Albumin 4.1 g/dL (3.5-5.0); Alkaline Phosphatase 95 U/L (38-126); Amylase 113 U/L (30-110); Anion Gap 10 mmol/L; Blood Urea Nitrogen 13 mg/dL (7-17); Calcium 9.1 mg/dL (8.4-10.2); Carbon Dioxide 26 mmol/L (22-30); Chloride 104 mmol/L (98-107); Glucose 176 mg/dL (74-99); Lipase 75 U/L (23-300); Magnesium 1.7 mg/dL (1.6-2.3); Non-African American GFR(CKD) >90 (>60 ml/min/1.73 sqM); Potassium 3.6 mmol/L (3.5-5.1); Sodium 140 mmol/L (137-145); Total Bilirubin 0.3 mg/dL (0.2-1.3); Total Protein 7.1 g/dL (6.3-8.2)
--- NOTE | 2021-08-26 02:39 | CT ---
EXAMINATION TYPE: CT abdomen pelvis w con DATE OF EXAM: 08/26/2021 COMPARISON: 03/29/2021 HISTORY: abdominal pain and vomiting. best images possible. Pt. would not lay flat/hold still for i maging CT DLP: 496.9 mGycm Automated exposure control for dose reduction was used. CONTRAST: Performed with IV Contrast, patient injected with 100ml mL of Isovue 300. Images obtained from the diaphragm to the floor the pelvis with IV contrast. There is elevated right diaphragm. There is some mild subsegmental atelectasis at the lung bases. The re is dilated fluid-filled stomach. There is no pancreatic mass. The bile duct are not dilated. Gallb ladder shows possible 1 cm gallstone. There is no adrenal mass. Kidneys show satisfactory contrast opacification. There is no hydronephrosi s. There are multiple dilated small bowel loops with fluid levels. Small bowel measures up to 3.5 cm. Transition point not seen. There are calcified uterine fibroids. Bladder distends smoothly. No evide nce of a pelvic mass. No free fluid in the pelvis. Appendix not seen. Large bowel is not significantl y dilated. There are some sigmoid diverticula. No diverticulitis. There are spondylotic changes in the lumbar spine. There is a mild thoracolumbar dextroscoliosis. The re is L1 and T12 compression fractures up to 40%. Fractures appear old. There is significant osteoart hritis in the left hip joint. IMPRESSION: Dilated stomach and proximal small bowel suggestive of mechanical bowel obstruction. Transition point not seen. Dilation is a change compared to old exam.
[2021-08-26 02:55] LABS: Appearance,Urine Clear (Clear); Bilirubin,Urine Negative (Negative); Blood,Urine Negative (Negative); Color,Urine Yellow; Glucose,Urine (UA) 2+ (Negative); Ketones,Urine Negative (Negative); Leukocyte Esterase,Urine Negative (Negative); Nitrite,Urine Negative (Negative); Protein,Urine Trace (Negative); Specific Gravity,Urine 1.014 (1.001-1.035); Urobilinogen,Urine <2.0 mg/dL (<2.0)
[2021-08-26] MEDS ORDERED: NALOXONE 0.4 MG/ML 1 ML VIAL IV PRN (03:03)
[2021-08-26] MEDS: PANTOPRAZOLE 40 MG/10 ML VIAL IV SCH (07:51)
[2021-08-26] MEDS: MORPHINE SULFATE 4 MG/ML SYRINGE IV PRN (07:59)
[2021-08-26] MEDS ORDERED: KETOROLAC 15 MG/ML 1 ML VIAL IM PRN (10:45)
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
[2021-08-26] MEDS ORDERED: NITROGLYCERIN SL TABS 0.4 MG TAB SUBLINGUAL PRN (11:41)
[2021-08-26] MEDS: KETOROLAC 15 MG/ML 1 ML VIAL IVP PRN ×2 (12:01→20:34)
--- NOTE | 2021-08-26 12:33 | XR ---
EXAMINATION TYPE: XR chest 1V portable DATE OF EXAM: 08/26/2021 COMPARISON: 03/29/2021 HISTORY: NG tube placement TECHNIQUE: Single frontal view of the chest is obtained. FINDINGS: Marked elevation right hemidiaphragm with marked dilation of bowel in the right upper quad rant. NG tube seen coursing the left upper quadrant likely within the gastric fundus. Subsegmental ch anges bilateral lung bases typical of atelectasis. 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 Underlying osteopenia and arthropathy of the shoulders. IMPRESSION: 1. NG tube appears in good position. There is a severe and marked bowel dilation the right upper quad rant with elevation the right hemidiaphragm correlate for obstructive pattern.
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
[2021-08-26] MEDS: SODIUM CHLORIDE 0.9% 1,000 ML IV SCH ×3 (20:39→20:41)
[2021-08-27] MEDS: KETOROLAC 15 MG/ML 1 ML VIAL IVP PRN (04:06)
[2021-08-27] MEDS: PANTOPRAZOLE 40 MG/10 ML VIAL IV SCH (07:39)
[2021-08-27] MEDS: amLODIPine 5 MG TAB PO SCH (07:39)
[2021-08-27] MEDS: SODIUM CHLORIDE 0.9% 1,000 ML IV SCH (07:40)
[2021-08-27 09:40] LABS: Basophils # (A) 0.05 X 10*3/uL (0.00-0.10); Basophils % (A) 0.8 %; Eosinophils # (A) 0.19 X 10*3/uL (0.04-0.35); Eosinophils % (A) 3.1 %; HCT 35.3 % (37.2-46.3); HGB 10.8 g/dL (12.0-15.0); Immature Grans, Automated 0.3 %; Lymphocytes % (A) 24.7 %; MCH 25.5 pg (27.0-32.0); MCHC 30.6 g/dL (32.0-37.0); MCV 83.5 fL (80.0-97.0); Mean Platelet Volume 11.2 fL (9.5-12.2); Monocytes # (A) 0.61 X 10*3/uL (0.20-1.00); NRBC Per 100 WBC 0 /100 WBCS (0.0-0.0); Neutrophils % (A) 61.1 %; Platelet Count 282 X 10*3/uL (140-440); RBC 4.23 X 10*6/uL (4.10-5.20); RDW 17.1 % (11.5-14.5); WBC 6.07 X 10*3/uL (4.50-10.00)
[2021-08-27 09:47] LABS: African American GFR (CKD) 110.1 (60.0-200.0); Albumin 3.4 g/dL (3.8-4.9); Albumin/Globulin Ratio 1.5 (1.60-3.17); Anion Gap 8.3 mmol/L (10.00-18.00); BUN/Creat Ratio 13.56 Ratio (12.00-20.00); Blood Urea Nitrogen 6.3 mg/dL (9.0-27.0); Calcium 8.6 mg/dL (8.7-10.3); Carbon Dioxide 26.9 mmol/L (20.0-27.5); Globulin 2.3 g/dL (1.6-3.3); Magnesium 1.7 mg/dL (1.5-2.4); Potassium 2.9 mmol/L (3.5-5.5); Total Bilirubin 0.6 mg/dL (0.30-1.20); Total Protein 5.7 g/dL (6.2-8.2)
[2021-08-27] MEDS ORDERED: Potassium Replacement Protocol 1 EACH MISC MISCELLANE PRN (11:43)
[2021-08-27] MEDS: POTASSIUM CHLORIDE 20 MEQ in WATER FOR INJECTION 1 100ML.BAG IVPB SCH (12:18)
--- NOTE | 2021-08-27 13:37 | P.PN ---
Subjective Progress Note Date: 08/27/21 CHIEF COMPLAINT: Bowel obstruction HISTORY OF PRESENT ILLNESS: The patient is a 76-year-old female with complicated history of gastric outlet obstruction and multiple abdominal surgeries including a loop gastrojejunostomy followed by a Darek-en-Y conversion. She had a nasogastric tube placed yesterday. She reports abdominal pain is much improved. ROS: No reports of nausea and vomiting. No fevers or chills. No new chest pain. No productive sputum PHYSICAL EXAM: VITAL SIGNS: Reviewed CONSTITUTIONAL: Well developed and in no acute distress. EYES: Conjuctivae without sclera icterus. Extraocular movements grossly intact. HEAD, EARS, NOSE, THROAT: Moist buccal mucosa. Head is atraumatic, normocephalic. Hears conversational speech. No nasal drainage. RESPIRATORY: Non-labored respirations and equal bilateral excursions. CARDIOVASCULAR: Palpable 2+ radial pulses. ABDOMEN: No peritonitis. Minimal distention. Nontender. MUSCULOSKELETAL: No gross deformity of the lower extremities noted. No clubbing. No cyanosis. SKIN: Good skin turgor. Well perfused. NEUROLOGIC: Cranial nerves II through XII grossly intact. No focal or lateralizing signs. PSYCH: Appropriate affect. Alert and oriented to person, place and time. CLINICAL LABS: Reviewed. Potassium low 2.9 with hypokalemia. WBC normal STUDIES: CT of the abdomen pelvis and the films were reviewed demonstrating moderately dilated loop of bowel along the right diaphragm. This is my interpretation. Chest x-ray independently reviewed 08/27/2021 demonstrated dilation of bowel along the right diaphragm. No free air. ASSESSMENT: 1. Abdominal pain to the bowel obstruction 2. Hypokalemia PLAN: 1. Continue nasogastric tube and conservative management. 2. May start ice chips and popsicles. 3. Recommend correction of hypokalemia. Objective - Vital Signs Vital signs: Vital Signs Temp 98.4 F 08/27/21 07:33 Pulse 77 08/27/21 07:33 Resp 17 08/27/21 07:33 BP 132/86 08/27/21 07:33 Pulse Ox 94 L 08/27/21 07:33 Intake & Output 08/26/21 08/27/21 08/27/21 18:59 06:59 18:59 Output Total 450 550 Balance -450 -550 Output: Gastric Drainage 450 550 Other: Voiding Method Diaper # Voids 4 4 # Bowel Movements 0 - Labs CBC & Chem 7: 08/27/21 06:12 08/27/21 06:12 Labs: Abnormal Lab Results - Last 24 Hours (Table) 08/27/21 08/27/21 Range/Units 06:12 06:12 Hgb 10.8 L (12.0-15.0) g/dL Hct 35.3 L (37.2-46.3) % MCH 25.5 L (27.0-32.0) pg MCHC 30.6 L (32.0-37.0) g/dL RDW 17.1 H (11.5-14.5) % Potassium 2.9 L (3.5-5.5) mmol/L Anion Gap 8.30 L (10.00-18.00) mmol/L BUN 6.3 L (9.0-27.0) mg/dL Creatinine 0.5 L (0.6-1.5) mg/dL Calcium 8.6 L (8.7-10.3) mg/dL Total Protein 5.7 L (6.2-8.2) g/dL Albumin 3.4 L (3.8-4.9) g/dL Albumin/Globulin Ratio 1.50 L (1.60-3.17) g/dL
[2021-08-27] MEDS ORDERED: Magnesium Replacement Protocol 1 EACH MISC MISCELLANE PRN (14:22)
--- NOTE | 2021-08-27 14:25 | P.PN ---
Subjective Progress Note Date: 08/27/21 76-year-old female came in with comments of nausea vomiting and constipation. Patient is found to have inefficiently dilated stomach and small bowel. Patient is not having nausea at this time. Patient had a bowel movement yesterday does have sluggish bowel sounds abdominal pain improved. Her abdominal pain is diffuse moderate severity crampy in nature. Patient had a gastrojejunostomy for gastric outlet obstruction and patient was having problems with the ileus and in her hospital patient also had a recent laparotomy with additional lysis. Patient presently doesn't have any NG tube 08/27/2021 Patient is evaluated today resting in bed with NG tube in place. She is feeling hungry and requesting food and drink. She had a bowel movement and is passing some gas. No nausea reported. Labs today showing potassium 2.9 which she will receive IV potassium and we will repeat potassium level later on this evening. hgb 10.8, lactic acid has improved down to 1.4. Magnesium 1.7 today. Will also receive 2 grams of IV magnesium. Review of Systems Constitutional: Denied any fatigue denied any fever. Cardio vascular: denied any chest pain, palpitations Gastrointestinal: denied any nausea, vomiting, diarrhea Pulmonary: Denied any shortness of breath cough Neurologic denied any new focal deficits All inpatient medications were reviewed and appropriate changes in these medications as dictated in the interval history and assessment and plan. PHYSICAL EXAMINATION: GENERAL: The patient is alert and oriented x3, not in any acute distress. Thin built HEENT: Pupils are round and equally reacting to light. EOMI. No scleral icterus. No conjunctival pallor. Normocephalic, atraumatic. No pharyngeal erythema. No thyromegaly. CARDIOVASCULAR: S1 and S2 present. No murmurs, rubs, or gallops. PULMONARY: Chest is clear to auscultation, no wheezing or crackles. ABDOMEN: Soft, nontender, bowel sounds present improved normoactive, she continues with NG tube MUSCULOSKELETAL: No joint swelling or deformity. EXTREMITIES: No cyanosis, clubbing, or pedal edema. NEUROLOGICAL: Gross neurological examination did not reveal any focal deficits. Diffuse muscle atrophy generalized weakness. SKIN: No rashes. Assessment and plan -Partial small bowel obstruction/ileus: Continues with NG tube, patient had a small BM on the , she is now advanced to ice chips and popsicles. General surgergy is following and will continue with conservative management. -History of DVT -Hyperlipidemia -Gastroesophageal reflux disease -History osteoarthritis DVT prophylaxis: Low-dose Lovenox The impression and plan of care has been dictated by Nola Clinton, Nurse Practitioner as directed. Dr. Bella MD I have performed a history and physical examination and medical decision making of this patient, discussed the same with the dictator, and agree with the dictators assessment and plan as written, documented as a scribe. Based on total visit time, I have performed more than 50% of this visit. Objective - Vital Signs Vital signs: Vital Signs Temp 98.4 F 08/27/21 07:33 Pulse 77 08/27/21 07:33 Resp 17 08/27/21 07:33 BP 132/86 08/27/21 07:33 Pulse Ox 94 L 08/27/21 07:33 Intake & Output 08/26/21 08/27/21 08/27/21 18:59 06:59 18:59 Output Total 450 550 Balance -450 -550 Output: Gastric Drainage 450 550 Other: Voiding Method Diaper # Voids 4 4 # Bowel Movements 0 - Labs CBC & Chem 7: 08/27/21 06:12 08/27/21 06:12 Labs: Abnormal Lab Results - Last 24 Hours (Table) 08/27/21 08/27/21 Range/Units 06:12 06:12 Hgb 10.8 L (12.0-15.0) g/dL Hct 35.3 L (37.2-46.3) % MCH 25.5 L (27.0-32.0) pg MCHC 30.6 L (32.0-37.0) g/dL RDW 17.1 H (11.5-14.5) % Potassium 2.9 L (3.5-5.5) mmol/L Anion Gap 8.30 L (10.00-18.00) mmol/L BUN 6.3 L (9.0-27.0) mg/dL Creatinine 0.5 L (0.6-1.5) mg/dL Calcium 8.6 L (8.7-10.3) mg/dL Total Protein 5.7 L (6.2-8.2) g/dL Albumin 3.4 L (3.8-4.9) g/dL Albumin/Globulin Ratio 1.50 L (1.60-3.17) g/dL Assessment and Plan Time with Patient: Less than 30
[2021-08-27] MEDS: MAGNESIUM SULFATE-D5W PMX 1 GM in DEXTROSE/WATER 1 100ML.BAG IVPB SCH (14:30)
[2021-08-28] MEDS: amLODIPine 5 MG TAB PO SCH (07:46)
[2021-08-28] MEDS: PANTOPRAZOLE 40 MG/10 ML VIAL IV SCH (07:46)
[2021-08-28] MEDS: SODIUM CHLORIDE 0.9% 1,000 ML IV SCH ×2 (07:46)
[2021-08-28 09:32] LABS: Basophils # (A) 0.07 X 10*3/uL (0.00-0.10); Basophils % (A) 0.9 %; Eosinophils # (A) 0.07 X 10*3/uL (0.04-0.35); Eosinophils % (A) 0.9 %; HCT 39.6 % (37.2-46.3); HGB 12.2 g/dL (12.0-15.0); Immature Grans, Automated 0.4 %; Lymphocytes # (A) 1.12 X 10*3/uL (0.90-5.00); Lymphocytes % (A) 14.3 %; MCH 25.8 pg (27.0-32.0); MCHC 30.8 g/dL (32.0-37.0); MCV 83.7 fL (80.0-97.0); Mean Platelet Volume 11.5 fL (9.5-12.2); Monocytes # (A) 0.55 X 10*3/uL (0.20-1.00); NRBC Per 100 WBC 0 /100 WBCS (0.0-0.0); Neutrophils # (A) 6.01 X 10*3/uL (1.80-7.70); Neutrophils % (A) 76.5 %; Platelet Count 321 X 10*3/uL (140-440); RBC 4.73 X 10*6/uL (4.10-5.20); RDW 16.7 % (11.5-14.5); WBC 7.85 X 10*3/uL (4.50-10.00)
[2021-08-28 09:45] LABS: Magnesium 2.3 mg/dL (1.5-2.4)
[2021-08-28 10:04] LABS: African American GFR (CKD) 100.9 (60.0-200.0); Anion Gap 17.1 mmol/L (10.00-18.00); BUN/Creat Ratio 25.08 Ratio (12.00-20.00); Blood Urea Nitrogen 15.2 mg/dL (9.0-27.0); Calcium 9.2 mg/dL (8.7-10.3); Carbon Dioxide 21.3 mmol/L (20.0-27.5); Potassium 4.1 mmol/L (3.5-5.5)
[2021-08-28 13:44] LABS: Glucose,Whole Blood 75 mg/dL (75-99)
[2021-08-28] MEDS ORDERED: DEXTROSE 5% IN WATER 1,000 ML IV ONE (14:01)
--- NOTE | 2021-08-28 14:03 | P.PN ---
Subjective Progress Note Date: 08/28/21 76-year-old female came in with comments of nausea vomiting and constipation. Patient is found to have inefficiently dilated stomach and small bowel. Patient is not having nausea at this time. Patient had a bowel movement yesterday does have sluggish bowel sounds abdominal pain improved. Her abdominal pain is diffuse moderate severity crampy in nature. Patient had a gastrojejunostomy for gastric outlet obstruction and patient was having problems with the ileus and in her hospital patient also had a recent laparotomy with additional lysis. Patient presently doesn't have any NG tube 08/27/2021 Patient is evaluated today resting in bed with NG tube in place. She is feeling hungry and requesting food and drink. She had a bowel movement and is passing some gas. No nausea reported. Labs today showing potassium 2.9 which she will receive IV potassium and we will repeat potassium level later on this evening. hgb 10.8, lactic acid has improved down to 1.4. Magnesium 1.7 today. Will also receive 2 grams of IV magnesium. 08/28/2021 Patient evaluated today resting in bed. NGT continues and she is draining. Was started on popsicles and ice chips yesterday and today she is requesting clear liquid diet. No nausea or diarrhea noted. She has not had BM today. No acute events over night. No abdominal pain as well. White count 7.85, hgb 12.2, platelet 321. Sodium 143, potassium 4.1, BUN 15.2, creat 0.6. Blood glucose 63 this morning in serum blood draw. One time CBG accucheck ordered to follow up. She is afebrile today, heart rate 75, blood pressure 115/74, 98% room air. She had extravasation of IV potassium through peripheral line last night. RN unsure how much potassium from the bag was infused through that site. Instructed to leave cannula in and attempt to aspirate some of the fluid.. Remove the cannula and ice and elevate the extremity and monitor site. Review of Systems Constitutional: Denied any fatigue denied any fever. Cardio vascular: denied any chest pain, palpitations Gastrointestinal: denied any nausea, vomiting, diarrhea, denies abdominal pain today. Pulmonary: Denied any shortness of breath cough Neurologic denied any new focal deficits All inpatient medications were reviewed and appropriate changes in these medications as dictated in the interval history and assessment and plan. PHYSICAL EXAMINATION: GENERAL: The patient is alert and oriented x3, not in any acute distress. Thin built HEENT: Pupils are round and equally reacting to light. EOMI. No scleral icterus. No conjunctival pallor. Normocephalic, atraumatic. No pharyngeal erythema. No thyromegaly. CARDIOVASCULAR: S1 and S2 present. No murmurs, rubs, or gallops. PULMONARY: Chest is clear to auscultation, no wheezing or crackles. ABDOMEN: Soft, nontender, bowel sounds present improved normoactive, she continues with NG tube MUSCULOSKELETAL: No joint swelling or deformity. EXTREMITIES: No cyanosis, clubbing, or pedal edema. NEUROLOGICAL: Gross neurological examination did not reveal any focal deficits. Diffuse muscle atrophy generalized weakness. SKIN: No rashes. Assessment and plan -Partial small bowel obstruction/ileus: Continues with NG tube, patient had a small BM on the , she is now advanced to ice chips and popsicles. General surgergy is following and will continue with conservative management. Patient would like clear liquid today. -Hypokalemia from poor oral intake, improved with electrolyte replacement and will repeat labs in the morning. -Hypoglycemia from poor oral intake will change IV fluids to D5 until diet has been increased and blood sugars improve -History of DVT -Hyperlipidemia -Gastroesophageal reflux disease -History osteoarthritis DVT prophylaxis: Low-dose Lovenox GI prophylaxis: ppi Full Code The impression and plan of care has been dictated by Nola Clinton, Nurse Practitioner as directed. Dr. Bella MD I have performed a history and physical examination and medical decision making of this patient, discussed the same with the dictator, and agree with the dictators assessment and plan as written, documented as a scribe. Based on total visit time, I have performed more than 50% of this visit. Objective - Vital Signs Vital signs: Vital Signs Temp 97.6 F 08/28/21 07:25 Pulse 75 08/28/21 07:25 Resp 17 08/28/21 07:25 BP 115/74 08/28/21 07:25 Pulse Ox 98 08/28/21 07:25 Intake & Output 08/27/21 08/28/21 08/28/21 18:59 06:59 18:59 Output Total 1800 500 Balance -1800 -500 Output: Gastric Drainage 900 500 Urine 900 Other: Voiding Method Diaper Diaper Diaper External Catheter External Catheter External Catheter # Voids 2 - Labs CBC & Chem 7: 08/28/21 07:00 08/28/21 07:00 Labs: Abnormal Lab Results - Last 24 Hours (Table) 08/27/21 08/28/21 08/28/21 Range/Units 18:14 07:00 07:00 MCH 25.8 L (27.0-32.0) pg MCHC 30.8 L (32.0-37.0) g/dL RDW 16.7 H (11.5-14.5) % Potassium 3.1 L (3.5-5.1) mmol/L BUN/Creatinine Ratio 25.08 H (12.00-20.00) Ratio Glucose 63 L (70-110) mg/dL Assessment and Plan Time with Patient: Less than 30
--- NOTE | 2021-08-28 15:05 | P.PN ---
Subjective Progress Note Date: 08/28/21 CHIEF COMPLAINT: Bowel obstruction HISTORY OF PRESENT ILLNESS: The patient is a 76-year-old female with complicated history of gastric outlet obstruction and multiple abdominal surgeries including a loop gastrojejunostomy followed by a Darek-en-Y conversion. Since placement of nasogastric tube, she reports her abdominal pain is resolved. "I feel great." Patient was started on popsicles. ROS: No reports of nausea and vomiting. No fevers or chills. No new chest pain. No productive sputum PHYSICAL EXAM: VITAL SIGNS: Reviewed CONSTITUTIONAL: Well developed and in no acute distress. EYES: Conjuctivae without sclera icterus. Extraocular movements grossly intact. HEAD, EARS, NOSE, THROAT: Moist buccal mucosa. Head is atraumatic, normocephalic. Hears conversational speech. No nasal drainage. RESPIRATORY: Non-labored respirations and equal bilateral excursions. CARDIOVASCULAR: Palpable 2+ radial pulses. ABDOMEN: No peritonitis. Nontender. No distention. MUSCULOSKELETAL: No gross deformity of the lower extremities noted. No clubbing. No cyanosis. SKIN: Good skin turgor. Well perfused. NEUROLOGIC: Cranial nerves II through XII grossly intact. No focal or lateralizing signs. PSYCH: Appropriate affect. Alert and oriented to person, place and time. CLINICAL LABS: Reviewed. WBC normal. Potassium increased from 2.9-4.1. ASSESSMENT: 1. Abdominal pain due to bowel obstruction 2. Hypokalemia PLAN: 1. Continue ice chips and popsicles. 2. Repeat abdominal x-ray tomorrow. Abdominal x-ray ordered. Objective - Vital Signs Vital signs: Vital Signs Temp 97.6 F 08/28/21 07:25 Pulse 75 08/28/21 07:25 Resp 17 08/28/21 07:25 BP 115/74 08/28/21 07:25 Pulse Ox 98 08/28/21 07:25 Intake & Output 08/27/21 08/28/21 08/28/21 18:59 06:59 18:59 Output Total 1800 500 Balance -1800 -500 Output: Gastric Drainage 900 500 Urine 900 Other: Voiding Method Diaper Diaper Diaper External Catheter External Catheter External Catheter # Voids 2 - Labs CBC & Chem 7: 08/28/21 07:00 08/28/21 07:00 Labs: Abnormal Lab Results - Last 24 Hours (Table) 08/27/21 08/28/21 08/28/21 Range/Units 18:14 07:00 07:00 MCH 25.8 L (27.0-32.0) pg MCHC 30.8 L (32.0-37.0) g/dL RDW 16.7 H (11.5-14.5) % Potassium 3.1 L (3.5-5.1) mmol/L BUN/Creatinine Ratio 25.08 H (12.00-20.00) Ratio Glucose 63 L (70-110) mg/dL
[2021-08-28] MEDS: KETOROLAC 15 MG/ML 1 ML VIAL IVP PRN (22:52)
[2021-08-29] MEDS: PANTOPRAZOLE 40 MG/10 ML VIAL IV SCH (07:42)
[2021-08-29] MEDS: amLODIPine 5 MG TAB PO SCH (07:42)
[2021-08-29 09:48] LABS: Glucose,Whole Blood 98 mg/dL (75-99)
[2021-08-29 10:35] LABS: African American GFR (CKD) >90 (>60 ml/min/1.73 sqM); Anion Gap 8 mmol/L; Blood Urea Nitrogen 9 mg/dL (7-17); Calcium 8.8 mg/dL (8.4-10.2); Carbon Dioxide 28 mmol/L (22-30); Chloride 103 mmol/L (98-107); Glucose 118 mg/dL (74-99); Non-African American GFR(CKD) >90 (>60 ml/min/1.73 sqM); Potassium 3.2 mmol/L (3.5-5.1); Sodium 139 mmol/L (137-145)
[2021-08-29] MEDS: POTASSIUM CHLORIDE ER 20 MEQ TAB.ER PO SCH ×4 (11:05→15:24)
--- NOTE | 2021-08-29 13:59 | XR ---
2 view abdomen HISTORY: Bowel obstruction 2 views the abdomen submitted correlated CT scan 08/26/2021 Right hemidiaphragm remains elevated. Loops of gas-filled bowel are present in the right hemidiaphrag m similar to prior CT, colonic interposition is noted anterior to the liver. Previously identified po ssible portal venous gas is not seen on plain film. NG tube is in place. Distal tip is likely within the stomach. Postop changes are noted to the lumbar spine. There is a calcified fibroid in the right hemipelvis. Patient is rotated. Arthropathy noted within the hips right greater than right. No eviden t pneumoperitoneum. IMPRESSION: Possible portal venous gas seen on CT scan not confirmed on today's plain film. Nonspecif ic bowel gas pattern. Dr. Holcomb notified via [employer] serve.
--- NOTE | 2021-08-29 15:16 | P.PN ---
Subjective Progress Note Date: 08/29/21 CHIEF COMPLAINT: Abdominal pain HISTORY OF PRESENT ILLNESS: Patient is being followed for small bowel dis section. She has NG tube in place with 100 mL output, clearish color. Reports her pain has improved. She is having flatus. Afebrile. Sodium 139 potassium 3.2 creatinine 0.52 abdominal x-ray shows a possible portal venous gas seen on computed tomography scan not confirmed on today's plain film. Non-specific bowel gas pattern. PHYSICAL EXAM: VITAL SIGNS: Reviewed. GENERAL: Well-developed in no acute distress. HEENT: No sclera icterus. Extraocular movements grossly intact. Moist buccal m ucosa. Head is atraumatic, normocephalic. ABDOMEN: Soft. Nondistended. Nontender. NEUROLOGIC: Alert and oriented. Cranial nerves II through XII grossly intact. ASSESSMENT: 1. Mechanical small bowel obstruction and dilated stomach 2. Prior history of gastric outlet obstruction and required conversion of loop gastrojejunostomy tube Darek-en-Y jejunostomy for gastric outlet obstruction in September 2020 PLAN: -Discontinue NG tube -Start clear liquid diet -Potassium being replaced Physician Director Operations Broadcast note has been reviewed by physician. Signing provider agrees with the documented findings, assessment, and plan of care. Objective - Vital Signs Vital signs: Vital Signs Temp 97.8 F 08/29/21 07:21 Pulse 67 08/29/21 07:21 Resp 16 08/29/21 07:21 BP 152/77 08/29/21 07:21 Pulse Ox 97 08/29/21 07:21 FiO2 Intake & Output 08/28/21 08/29/21 08/29/21 18:59 06:59 18:59 Output Total 601 700 Balance -601 -700 Output: Gastric Drainage 100 Urine 600 600 Stool 1 Other: Voiding Method Diaper Diaper External Catheter External Catheter # Voids 2 - Labs CBC & Chem 7: 08/28/21 07:00 08/29/21 13:46 Labs: Abnormal Lab Results - Last 24 Hours (Table) 08/29/21 Range/Units 09:54 Potassium 3.2 L (3.5-5.1) mmol/L Glucose 118 H (74-99) mg/dL
--- NOTE | 2021-08-29 16:10 | P.PN ---
Subjective Progress Note Date: 08/29/21 76-year-old female came in with comments of nausea vomiting and constipation. Patient is found to have inefficiently dilated stomach and small bowel. Patient is not having nausea at this time. Patient had a bowel movement yesterday does have sluggish bowel sounds abdominal pain improved. Her abdominal pain is diffuse moderate severity crampy in nature. Patient had a gastrojejunostomy for gastric outlet obstruction and patient was having problems with the ileus and in her hospital patient also had a recent laparotomy with additional lysis. Patient presently doesn't have any NG tube 08/27/2021 Patient is evaluated today resting in bed with NG tube in place. She is feeling hungry and requesting food and drink. She had a bowel movement and is passing some gas. No nausea reported. Labs today showing potassium 2.9 which she will receive IV potassium and we will repeat potassium level later on this evening. hgb 10.8, lactic acid has improved down to 1.4. Magnesium 1.7 today. Will also receive 2 grams of IV magnesium. 08/28/2021 Patient evaluated today resting in bed. NGT continues and she is draining. Was started on popsicles and ice chips yesterday and today she is requesting clear liquid diet. No nausea or diarrhea noted. She has not had BM today. No acute events over night. No abdominal pain as well. White count 7.85, hgb 12.2, platelet 321. Sodium 143, potassium 4.1, BUN 15.2, creat 0.6. Blood glucose 63 this morning in serum blood draw. One time CBG accucheck ordered to follow up. She is afebrile today, heart rate 75, blood pressure 115/74, 98% room air. She had extravasation of IV potassium through peripheral line last night. RN unsure how much potassium from the bag was infused through that site. Instructed to leave cannula in and attempt to aspirate some of the fluid.. Remove the cannula and ice and elevate the extremity and monitor site. 08/29/2021 Patient is continued on ice chips and popsicles throughout the night and repeat abdominal xray is ordered today by surgical group. She is on D5 IV fluids, and was stopped as she is able to eat ice chips and popsicles will follow up blood glucose to ensure staying stable. Xray showing possible portal venous gas seen on CT scan not confirmed on xray, nonspecific bowel gas pattern. NG Tube will be removed today and diet will be advanced to clear liquid diet. Blood glucose has improved 118. Potassium 3.2 today patient recieved a total of 40 meq will recheck later this evening and replace as needed. Blood pressure 130/78, heart rate 69, temp 98.1, 98.5 temp. Review of Systems Constitutional: Denied any fatigue denied any fever. Cardio vascular: denied any chest pain, palpitations Gastrointestinal: denied any nausea, vomiting, diarrhea, denies abdominal pain today. Pulmonary: Denied any shortness of breath cough Neurologic denied any new focal deficits All inpatient medications were reviewed and appropriate changes in these medications as dictated in the interval history and assessment and plan. PHYSICAL EXAMINATION: GENERAL: The patient is alert and oriented x3, not in any acute distress. Thin built HEENT: Pupils are round and equally reacting to light. EOMI. No scleral icterus. No conjunctival pallor. Normocephalic, atraumatic. No pharyngeal erythema. No thyromegaly. CARDIOVASCULAR: S1 and S2 present. No murmurs, rubs, or gallops. PULMONARY: Chest is clear to auscultation, no wheezing or crackles. ABDOMEN: Soft, nontender, bowel sounds present improved normoactive, she continues with NG tube MUSCULOSKELETAL: No joint swelling or deformity. EXTREMITIES: No cyanosis, clubbing, or pedal edema. NEUROLOGICAL: Gross neurological examination did not reveal any focal deficits. Diffuse muscle atrophy generalized weakness. SKIN: No rashes. Assessment and plan -Partial small bowel obstruction/ileus: NG tube to be discontinued today and patient to be started on a clear liquid diet today. -Hypokalemia from poor oral intake, electrolyte replacement and will repeat labs in the morning. -Hypoglycemia from poor oral intake, improved and patient is now on clear liquid diet. -History of DVT -Hyperlipidemia -Gastroesophageal reflux disease -History osteoarthritis DVT prophylaxis: Low-dose Lovenox GI prophylaxis: ppi Full Code The impression and plan of care has been dictated by Nurse Nancy Pr actitioner as directed. Dr. Bella MD I have performed a history and physical examination and medical decision making of this patient, discussed the same with the dictator, and agree with the dicta tors assessment and plan as written, documented as a scribe. Based on total visit time, I have performed more than 50% of this visit. Objective - Vital Signs Vital signs: Vital Signs Temp 97.8 F 08/29/21 07:21 Pulse 67 08/29/21 07:21 Resp 16 08/29/21 07:21 BP 152/77 08/29/21 07:21 Pulse Ox 97 08/29/21 07:21 FiO2 Intake & Output 08/28/21 08/29/21 08/29/21 18:59 06:59 18:59 Output Total 601 Balance -601 Output: Urine 600 Stool 1 Other: Voiding Method Diaper Diaper External Catheter External Catheter # Voids 2 - Labs CBC & Chem 7: 08/28/21 07:00 08/29/21 13:46 Labs: Abnormal Lab Results - Last 24 Hours (Table) 08/28/21 Range/Units 07:00 BUN/Creatinine Ratio 25.08 H (12.00-20.00) Ratio Glucose 63 L (70-110) mg/dL Assessment and Plan Time with Patient: Less than 30
[2021-08-30] MEDS ORDERED: POTASSIUM CHLORIDE ER 20 MEQ TAB.ER PO STA (07:19)
[2021-08-30] MEDS: PANTOPRAZOLE 40 MG/10 ML VIAL IV SCH (07:49)
[2021-08-30] MEDS: amLODIPine 5 MG TAB PO SCH (07:49)
[2021-08-30] MEDS: POTASSIUM CHLORIDE ER 20 MEQ TAB.ER PO SCH (07:50)
[2021-08-30 09:49] LABS: African American GFR (CKD) 107.7 (60.0-200.0); Anion Gap 10.3 mmol/L (10.00-18.00); BUN/Creat Ratio 9.36 Ratio (12.00-20.00); Blood Urea Nitrogen 4.7 mg/dL (9.0-27.0); Calcium 9.1 mg/dL (8.7-10.3); Carbon Dioxide 24.1 mmol/L (20.0-27.5); Non-African American GFR(CKD) 92.9 (60.0-200.0); Potassium 4.5 mmol/L (3.5-5.5)
[2021-08-30] MEDS: bisacodyL 10 MG SUPP RECTAL STA ×2 (10:47→10:56)
--- NOTE | 2021-08-30 13:35 | P.PN ---
Subjective Progress Note Date: 08/30/21 CHIEF COMPLAINT: Abdominal pain HISTORY OF PRESENT ILLNESS: Patient is being followed for small bowel obs truction. Patient denies abdominal pain. She is having flatus. Patient had BM this afternoon. Denies any nausea or vomiting. She is tolerating clear liquids. She snuck some popcorn yesterday and tolerated that. Afebrile. Potassium improved from 3.5-4.5 Patient seen and examined with Dr. nieves PHYSICAL EXAM: VITAL SIGNS: Reviewed. GENERAL: Well-developed in no acute distress. HEENT: No sclera icterus. Extraocular movements grossly intact. Moist buccal mucosa. Head is atraumatic, normocephalic. ABDOMEN: Soft. Nondistended. Nontender. NEUROLOGIC: Alert and oriented. Cranial nerves II through XII grossly intact. ASSESSMENT: 1. Mechanical small bowel obstruction and dilated stomach 2. Prior history of gastric outlet obstruction and required conversion of loop gastrojejunostomy tube Darek-en-Y jejunostomy for gastric outlet obstruction in September 2020 PLAN: -Advance diet to full liquids -Encourage patient to ambulate -Continue supportive care -Possible discharge tomorrow Physician Bracelet Former note has been reviewed by physician. Signing provider agrees with the documented findings, assessment, and plan of care. Objective - Vital Signs Vital signs: Vital Signs Temp 98.2 F 08/30/21 07:42 Pulse 76 08/30/21 07:42 Resp 18 08/30/21 07:42 BP 116/73 08/30/21 07:42 Pulse Ox 99 08/30/21 07:42 FiO2 Intake & Output 08/29/21 08/30/21 08/30/21 18:59 06:59 18:59 Intake Total 720 Output Total 1800 1500 100 Balance -1080 -1500 -100 Intake: Oral 720 Output: Gastric Drainage 100 Urine 1700 1500 100 Other: Voiding Method Diaper Diaper Diaper External Catheter External Catheter External Catheter # Voids 1 # Bowel Movements 1 - Labs CBC & Chem 7: 08/28/21 07:00 08/30/21 04:27 Labs: Abnormal Lab Results - Last 24 Hours (Table) 08/29/21 08/30/21 Range/Units 13:46 04:27 Potassium 3.2 L (3.5-5.1) mmol/L BUN 4.7 L (9.0-27.0) mg/dL Creatinine 0.5 L (0.6-1.5) mg/dL BUN/Creatinine Ratio 9.36 L (12.00-20.00) Ratio
--- NOTE | 2021-08-30 14:08 | P.PN ---
Subjective Progress Note Date: 08/30/21 76-year-old female came in with comments of nausea vomiting and constipation. Patient is found to have inefficiently dilated stomach and small bowel. Patient is not having nausea at this time. Patient had a bowel movement yesterday does have sluggish bowel sounds abdominal pain improved. Her abdominal pain is diffuse moderate severity crampy in nature. Patient had a gastrojejunostomy for gastric outlet obstruction and patient was having problems with the ileus and in her hospital patient also had a recent laparotomy with additional lysis. Patient presently doesn't have any NG tube 08/27/2021 Patient is evaluated today resting in bed with NG tube in place. She is feeling hungry and requesting food and drink. She had a bowel movement and is passing some gas. No nausea reported. Labs today showing potassium 2.9 which she will receive IV potassium and we will repeat potassium level later on this evening. hgb 10.8, lactic acid has improved down to 1.4. Magnesium 1.7 today. Will also receive 2 grams of IV magnesium. 08/28/2021 Patient evaluated today resting in bed. NGT continues and she is draining. Was started on popsicles and ice chips yesterday and today she is requesting clear liquid diet. No nausea or diarrhea noted. She has not had BM today. No acute events over night. No abdominal pain as well. White count 7.85, hgb 12.2, platelet 321. Sodium 143, potassium 4.1, BUN 15.2, creat 0.6. Blood glucose 63 this morning in serum blood draw. One time CBG accucheck ordered to follow up. She is afebrile today, heart rate 75, blood pressure 115/74, 98% room air. She had extravasation of IV potassium through peripheral line last night. RN unsure how much potassium from the bag was infused through that site. Instructed to leave cannula in and attempt to aspirate some of the fluid.. Remove the cannula and ice and elevate the extremity and monitor site. 08/29/2021 Patient is continued on ice chips and popsicles throughout the night and repeat abdominal xray is ordered today by surgical group. She is on D5 IV fluids, and was stopped as she is able to eat ice chips and popsicles will follow up blood glucose to ensure staying stable. Xray showing possible portal venous gas seen on CT scan not confirmed on xray, nonspecific bowel gas pattern. NG Tube will be removed today and diet will be advanced to clear liquid diet. Blood glucose has improved 118. Potassium 3.2 today patient recieved a total of 40 meq will recheck later this evening and replace as needed. Blood pressure 130/78, heart rate 69, temp 98.1, 98.5 temp. 08/30/2021 NG Tube removed yesterday, and diet has been advanced to full liquid by surgical team. Pt still with no BM since the , dulcolax suppository has been ordered. She is denying abdominal pain, no nausea, no vomiting. Sitting up in the chair today. Labs today have improved, sodium 141, potassium 4.5, glucose 107. She has remained afebrile, heart rate 76, blood pressure 116/73, 99% room air. Will give some gentle hydration overnight. Review of Systems Constitutional: Denied any fatigue denied any fever. Cardio vascular: denied any chest pain, palpitations Gastrointestinal: denied any nausea, vomiting, diarrhea, denies abdominal pain today. Pulmonary: Denied any shortness of breath cough Neurologic denied any new focal deficits All inpatient medications were reviewed and appropriate changes in these medicat ions as dictated in the interval history and assessment and plan. PHYSICAL EXAMINATION: GENERAL: The patient is alert and oriented x3, not in any acute distress. Thin built HEENT: Pupils are round and equally reacting to light. EOMI. No scleral icterus. No conjunctival pallor. Normocephalic, atraumatic. No pharyngeal erythema. No thyromegaly. CARDIOVASCULAR: S1 and S2 present. No murmurs, rubs, or gallops. PULMONARY: Chest is clear to auscultation, no wheezing or crackles. ABDOMEN: Soft, nontender, bowel sounds present improved normoactive. MUSCULOSKELETAL: No joint swelling or deformity. EXTREMITIES: No cyanosis, clubbing, or pedal edema. NEUROLOGICAL: Gross neurological examination did not reveal any focal deficits. Diffuse muscle atrophy generalized weakness. SKIN: No rashes. Assessment and plan -Partial small bowel obstruction/ileus: NG Tube has been discontinued and patient is now on full liquid diet. -Hypokalemia from poor oral intake, resolved with electrolyte replacement. -Hypoglycemia from poor oral intake, resolved -History of DVT -Hyperlipidemia -Gastroesophageal reflux disease -History osteoarthritis DVT prophylaxis: Low-dose Lovenox GI prophylaxis: ppi Full Code Plan Full liquid diet per surgery Patient needs to have a bowel movement Continue with IV fluids overnight Follow up labs in AM Home with homecare on discharge The impression and plan of care has been dictated by Nola Clinton, Nurse Practitioner as directed. Dr. Bella MD I have performed a history and physical examination and medical decision making of this patient, discussed the same with the dictator, and agree with the di ctators assessment and plan as written, documented as a scribe. Based on total visit time, I have performed more than 50% of this visit. Objective - Vital Signs Vital signs: Vital Signs Temp 98.2 F 08/30/21 07:42 Pulse 76 08/30/21 07:42 Resp 18 08/30/21 07:42 BP 116/73 08/30/21 07:42 Pulse Ox 99 08/30/21 07:42 FiO2 Intake & Output 08/29/21 08/30/21 08/30/21 18:59 06:59 18:59 Intake Total 720 Output Total 1800 1500 100 Balance -1080 -1500 -100 Intake: Oral 720 Output: Gastric Drainage 100 Urine 1700 1500 100 Other: Voiding Method Diaper Diaper Diaper External Catheter External Catheter External Catheter # Voids 1 # Bowel Movements 1 - Labs CBC & Chem 7: 08/28/21 07:00 08/30/21 04:27 Labs: Abnormal Lab Results - Last 24 Hours (Table) 08/29/21 08/30/21 Range/Units 13:46 04:27 Potassium 3.2 L (3.5-5.1) mmol/L BUN 4.7 L (9.0-27.0) mg/dL Creatinine 0.5 L (0.6-1.5) mg/dL BUN/Creatinine Ratio 9.36 L (12.00-20.00) Ratio Assessment and Plan Time with Patient: Less than 30
[2021-08-30] MEDS: SODIUM CHLORIDE 0.45% 1,000 ML IV SCH (14:18)
[2021-08-31] MEDS: POTASSIUM CHLORIDE ER 20 MEQ TAB.ER PO SCH (08:15)
[2021-08-31] MEDS: amLODIPine 5 MG TAB PO SCH (08:15)
[2021-08-31] MEDS: PANTOPRAZOLE 40 MG/10 ML VIAL IV SCH (08:15)
[2021-08-31 10:01] LABS: African American GFR (CKD) 105.9 (60.0-200.0); Anion Gap 10.1 mmol/L (10.00-18.00); BUN/Creat Ratio 10.36 Ratio (12.00-20.00); Blood Urea Nitrogen 5.4 mg/dL (9.0-27.0); Carbon Dioxide 23.3 mmol/L (20.0-27.5); Magnesium 1.7 mg/dL (1.5-2.4); Non-African American GFR(CKD) 91.4 (60.0-200.0); Potassium 4.7 mmol/L (3.5-5.5)
--- NOTE | 2021-08-31 13:46 | P.PN ---
Subjective Progress Note Date: 08/31/21 CHIEF COMPLAINT: Abdominal pain HISTORY OF PRESENT ILLNESS: Patient is being followed for small bowel obs truction. Patient denies abdominal pain. She is having flatus. She did have a bowel movement yesterday. She is tolerating full liquids. Reports that she is feeling better. Sitting up at bedside chair. Afebrile. Sodium 138 potassium 4.7 creatinine 0.5 magnesium 1.7 Patient seen and examined with Dr. nieves PHYSICAL EXAM: VITAL SIGNS: Reviewed. GENERAL: Well-developed in no acute distress. HEENT: No sclera icterus. Extraocular movements grossly intact. Moist buccal mucosa. Head is atraumatic, normocephalic. ABDOMEN: Soft. Nondistended. Nontender. NEUROLOGIC: Alert and oriented. Cranial nerves II through XII grossly intact. ASSESSMENT: 1. Mechanical small bowel obstruction and dilated stomach 2. Prior history of gastric outlet obstruction and required conversion of loop gastrojejunostomy tube Darek-en-Y jejunostomy for gastric outlet obstruction in September 2020 PLAN: -Advance diet to regular -Patient can be discharged from surgical standpoint when medically cleared -Magnesium being replaced -Encourage patient to ambulate -Continue supportive care Physician Hydrology Technician note has been reviewed by physician. Signing provider agrees with the documented findings, assessment, and plan of care. Objective - Vital Signs Vital signs: Vital Signs Temp 99.0 F 08/31/21 08:00 Pulse 71 08/31/21 08:00 Resp 16 08/31/21 08:00 BP 108/71 08/31/21 08:00 Pulse Ox 94 L 08/31/21 08:00 FiO2 Intake & Output 08/30/21 08/31/21 08/31/21 18:59 06:59 18:59 Output Total 100 2 Balance -100 -2 Output: Urine 100 Stool 2 Other: Voiding Method Diaper Diaper External Catheter External Catheter # Voids 1 5 1 # Bowel Movements 1 - Labs CBC & Chem 7: 08/28/21 07:00 08/31/21 03:34 Labs: Abnormal Lab Results - Last 24 Hours (Table) 08/31/21 Range/Units 03:34 BUN 5.4 L (9.0-27.0) mg/dL Creatinine 0.5 L (0.6-1.5) mg/dL BUN/Creatinine Ratio 10.36 L (12.00-20.00) Ratio
[2021-08-31] MEDS ORDERED: MAGNESIUM SULFATE-D5W PMX 1 GM in DEXTROSE/WATER 1 100ML.BAG IVPB ONE (14:00)
--- NOTE | 2021-08-31 15:16 | P.PN ---
Subjective Progress Note Date: 08/31/21 76-year-old female came in with comments of nausea vomiting and constipation. Patient is found to have inefficiently dilated stomach and small bowel. Patient is not having nausea at this time. Patient had a bowel movement yesterday does have sluggish bowel sounds abdominal pain improved. Her abdominal pain is diffuse moderate severity crampy in nature. Patient had a gastrojejunostomy for gastric outlet obstruction and patient was having problems with the ileus and in her hospital patient also had a recent laparotomy with additional lysis. Patient presently doesn't have any NG tube 08/27/2021 Patient is evaluated today resting in bed with NG tube in place. She is feeling hungry and requesting food and drink. She had a bowel movement and is passing some gas. No nausea reported. Labs today showing potassium 2.9 which she will receive IV potassium and we will repeat potassium level later on this evening. hgb 10.8, lactic acid has improved down to 1.4. Magnesium 1.7 today. Will also receive 2 grams of IV magnesium. 08/28/2021 Patient evaluated today resting in bed. NGT continues and she is draining. Was started on popsicles and ice chips yesterday and today she is requesting clear liquid diet. No nausea or diarrhea noted. She has not had BM today. No acute events over night. No abdominal pain as well. White count 7.85, hgb 12.2, platelet 321. Sodium 143, potassium 4.1, BUN 15.2, creat 0.6. Blood glucose 63 this morning in serum blood draw. One time CBG accucheck ordered to follow up. She is afebrile today, heart rate 75, blood pressure 115/74, 98% room air. She had extravasation of IV potassium through peripheral line last night. RN unsure how much potassium from the bag was infused through that site. Instructed to leave cannula in and attempt to aspirate some of the fluid.. Remove the cannula and ice and elevate the extremity and monitor site. 08/29/2021 Patient is continued on ice chips and popsicles throughout the night and repeat abdominal xray is ordered today by surgical group. She is on D5 IV fluids, and was stopped as she is able to eat ice chips and popsicles will follow up blood glucose to ensure staying stable. Xray showing possible portal venous gas seen on CT scan not confirmed on xray, nonspecific bowel gas pattern. NG Tube will be removed today and diet will be advanced to clear liquid diet. Blood glucose has improved 118. Potassium 3.2 today patient recieved a total of 40 meq will recheck later this evening and replace as needed. Blood pressure 130/78, heart rate 69, temp 98.1, 98.5 temp. 08/30/2021 NG Tube removed yesterday, and diet has been advanced to full liquid by surgical team. Pt still with no BM since the , dulcolax suppository has been ordered. She is denying abdominal pain, no nausea, no vomiting. Sitting up in the chair today. Labs today have improved, sodium 141, potassium 4.5, glucose 107. She has remained afebrile, heart rate 76, blood pressure 116/73, 99% room air. Will give some gentle hydration overnight. 08/31/2021 Patient is seen and evaluated today tolerating full liquids and them being advanced to regular diet per surgery. Patient is having bowel movements and denies any abdominal pain at this time. Patient denies nausea or vomiting and is anxious about being discharged home too soon. Recommend close observation with increase in diet overnight and will likely discharge home with home care in 24 hours. Replace magnesium per protocol and will follow-up with repeat labs. Patient denies chest pain or shortness of breath. Patient is afebrile. Review of Systems Constitutional: Denied any fatigue denied any fever. Cardio vascular: denied any chest pain, palpitations Gastrointestinal: denied any nausea, vomiting, diarrhea, denies abdominal pain today. Reports to having a bowel movement Pulmonary: Denied any shortness of breath cough Neurologic denied any new focal deficits All inpatient medications were reviewed and appropriate changes in these medications as dictated in the interval history and assessment and plan. PHYSICAL EXAMINATION: GENERAL: The patient is alert and oriented x3, not in any acute distress. Thin built HEENT: Pupils are round and equally reacting to light. EOMI. No scleral icterus. No conjunctival pallor. Normocephalic, atraumatic. No pharyngeal erythema. No thyromegaly. CARDIOVASCULAR: S1 and S2 muffled PULMONARY: Diminished breath sounds bilaterally, no wheezing or crackles. ABDOMEN: Soft, nontender, bowel sounds present improved normoactive. MUSCULOSKELETAL: No joint swelling or deformity. EXTREMITIES: No cyanosis, clubbing, or pedal edema. NEUROLOGICAL: Gross neurological examination did not reveal any focal deficits. Diffuse muscle atrophy generalized weakness. SKIN: No rashes. Assessment: -Partial small bowel obstruction/ileus -Hypokalemia from poor oral intake, improved. -Hypoglycemia from poor oral intake, resolved -History of DVT -Hyperlipidemia -Gastroesophageal reflux disease -History osteoarthritis -DVT prophylaxis: Low-dose Lovenox -GI prophylaxis: ppi -Full Code Plan: Full liquid diet that is being advanced to regular per surgery Continue with IV fluids overnight and replace magnesium per protocol Follow up labs in AM Home with homecare on discharge Possible discharge in 24 hours The impression and plan of care has been dictated by Soha Meza, Nurse Practitioner as directed. Dr. Jp MD I have performed a history and examination and MDM of this patient, discussed the same with the dictator, and agree with the dictator's assessment and plan as written ,documented as a scribe. Based on total visit time, I have performed more than 50% of the visit. Objective - Vital Signs Vital signs: Vital Signs Temp 99.0 F 08/31/21 08:00 Pulse 71 08/31/21 08:00 Resp 16 08/31/21 08:00 BP 108/71 08/31/21 08:00 Pulse Ox 94 L 08/31/21 08:00 FiO2 Intake & Output 08/30/21 08/31/21 08/31/21 18:59 06:59 18:59 Output Total 100 2 Balance -100 -2 Output: Urine 100 Stool 2 Other: Voiding Method Diaper Diaper External Catheter External Catheter # Voids 1 5 1 # Bowel Movements 1 - Labs CBC & Chem 7: 08/28/21 07:00 08/31/21 03:34 Labs: Abnormal Lab Results - Last 24 Hours (Table) 08/30/21 Range/Units 04:27 BUN 4.7 L (9.0-27.0) mg/dL Creatinine 0.5 L (0.6-1.5) mg/dL BUN/Creatinine Ratio 9.36 L (12.00-20.00) Ratio
[2021-08-31] MEDS: MORPHINE SULFATE 4 MG/ML SYRINGE IV PRN (17:56)
[2021-08-31] MEDS: ONDANSETRON 4 MG/2 ML VIAL IVP PRN (18:15)
[2021-09-01] MEDS: SODIUM CHLORIDE 0.45% 1,000 ML IV SCH ×2 (00:11→06:00)
[2021-09-01] MEDS: POTASSIUM CHLORIDE ER 20 MEQ TAB.ER PO SCH (08:27)
[2021-09-01] MEDS: amLODIPine 5 MG TAB PO SCH (08:27)
[2021-09-01] MEDS: PANTOPRAZOLE 40 MG/10 ML VIAL IV SCH (08:27)
--- NOTE | 2021-09-01 14:44 | P.PN ---
Subjective Progress Note Date: 09/01/21 CHIEF COMPLAINT: Abdominal pain HISTORY OF PRESENT ILLNESS: Patient is being followed for small bowel obs truction. Patient denies abdominal pain. She is having flatus and BM's. Denies any nausea vomiting. She is tolerating regular diet. Afebrile. Patient seen and examined with Dr. nieves PHYSICAL EXAM: VITAL SIGNS: Reviewed. GENERAL: Well-developed in no acute distress. HEENT: No sclera icterus. Extraocular movements grossly intact. Moist buccal mucosa. Head is atraumatic, normocephalic. ABDOMEN: Soft. Nondistended. Nontender. NEUROLOGIC: Alert and oriented. Cranial nerves II through XII grossly intact. ASSESSMENT: 1. Mechanical small bowel obstruction and dilated stomach resolved with conservative treatment 2. Prior history of gastric outlet obstruction and required conversion of loop gastrojejunostomy tube Darek-en-Y jejunostomy for gastric outlet obstruction in September 2020 PLAN: -Patient can be discharged from surgical standpoint when medically cleared -Continue regular diet Physician Manager Building note has been reviewed by physician. Signing provider agrees with the documented findings, assessment, and plan of care. Objective - Vital Signs Vital signs: Vital Signs Temp 98.4 F 09/01/21 07:43 Pulse 80 09/01/21 07:43 Resp 16 09/01/21 07:43 BP 128/86 09/01/21 07:43 Pulse Ox 97 09/01/21 07:43 FiO2 Intake & Output 08/31/21 09/01/21 09/01/21 18:59 06:59 18:59 Output Total 801 400 Balance -801 -400 Output: Urine 800 400 Stool 1 Other: Voiding Method Diaper Diaper External Catheter External Catheter # Voids 3 2 1 # Bowel Movements 1 # Emeses 4 - Labs CBC & Chem 7: 08/28/21 07:00 08/31/21 03:34
--- NOTE | 2021-09-01 14:58 | P.PN ---
Subjective Progress Note Date: 09/01/21 76-year-old female came in with comments of nausea vomiting and constipation. Patient is found to have inefficiently dilated stomach and small bowel. Patient is not having nausea at this time. Patient had a bowel movement yesterday does have sluggish bowel sounds abdominal pain improved. Her abdominal pain is diffuse moderate severity crampy in nature. Patient had a gastrojejunostomy for gastric outlet obstruction and patient was having problems with the ileus and in her hospital patient also had a recent laparotomy with additional lysis. Patient presently doesn't have any NG tube 08/27/2021 Patient is evaluated today resting in bed with NG tube in place. She is feeling hungry and requesting food and drink. She had a bowel movement and is passing some gas. No nausea reported. Labs today showing potassium 2.9 which she will receive IV potassium and we will repeat potassium level later on this evening. hgb 10.8, lactic acid has improved down to 1.4. Magnesium 1.7 today. Will also receive 2 grams of IV magnesium. 08/28/2021 Patient evaluated today resting in bed. NGT continues and she is draining. Was started on popsicles and ice chips yesterday and today she is requesting clear liquid diet. No nausea or diarrhea noted. She has not had BM today. No acute events over night. No abdominal pain as well. White count 7.85, hgb 12.2, platelet 321. Sodium 143, potassium 4.1, BUN 15.2, creat 0.6. Blood glucose 63 this morning in serum blood draw. One time CBG accucheck ordered to follow up. She is afebrile today, heart rate 75, blood pressure 115/74, 98% room air. She had extravasation of IV potassium through peripheral line last night. RN unsure how much potassium from the bag was infused through that site. Instructed to leave cannula in and attempt to aspirate some of the fluid.. Remove the cannula and ice and elevate the extremity and monitor site. 08/29/2021 Patient is continued on ice chips and popsicles throughout the night and repeat abdominal xray is ordered today by surgical group. She is on D5 IV fluids, and was stopped as she is able to eat ice chips and popsicles will follow up blood glucose to ensure staying stable. Xray showing possible portal venous gas seen on CT scan not confirmed on xray, nonspecific bowel gas pattern. NG Tube will be removed today and diet will be advanced to clear liquid diet. Blood glucose has improved 118. Potassium 3.2 today patient recieved a total of 40 meq will recheck later this evening and replace as needed. Blood pressure 130/78, heart rate 69, temp 98.1, 98.5 temp. 08/30/2021 NG Tube removed yesterday, and diet has been advanced to full liquid by surgical team. Pt still with no BM since the , dulcolax suppository has been ordered. She is denying abdominal pain, no nausea, no vomiting. Sitting up in the chair today. Labs today have improved, sodium 141, potassium 4.5, glucose 107. She has remained afebrile, heart rate 76, blood pressure 116/73, 99% room air. Will give some gentle hydration overnight. 08/31/2021 Patient is seen and evaluated today tolerating full liquids and them being advanced to regular diet per surgery. Patient is having bowel movements and denies any abdominal pain at this time. Patient denies nausea or vomiting and is anxious about being discharged home too soon. Recommend close observation with increase in diet overnight and will likely discharge home with home care in 24 hours. Replace magnesium per protocol and will follow-up with repeat labs. Patient denies chest pain or shortness of breath. Patient is afebrile. 09/01/2021 Patient is seen in follow-up this morning reports to having an episode of emesis yesterday shortly after dinner and patient reports to completing 100% of her meal and had some abdominal discomfort and was given morphine and subsequently had vomiting after that. Discussed with the nursing staff along with the p atient about small frequent meals as patient frequently has intolerance to large meals. Patient evaluated by surgery recommending continuing current regimen and cleared from their standpoint. Will monitor closely overnight for diet tolerance and again encouraged small frequent meals and chewing all of her meal as nursing staff reported her emesis appeared to have full pieces of food but did not appear chewed. Patient denies chest pain, shortness of breath, or palpitations. Patient is afebrile. Review of Systems Constitutional: Denied any fatigue denied any fever. Cardio vascular: denied any chest pain, palpitations Gastrointestinal: denied any nausea, vomiting, diarrhea, denies abdominal pain today. Reports to having a bowel movement Pulmonary: Denied any shortness of breath cough Neurologic denied any new focal deficits All inpatient medications were reviewed and appropriate changes in these medications as dictated in the interval history and assessment and plan. PHYSICAL EXAMINATION: GENERAL: The patient is alert and oriented x3, not in any acute distress. Thin built HEENT: Pupils are round and equally reacting to light. EOMI. No scleral icterus. No conjunctival pallor. Normocephalic, atraumatic. No pharyngeal erythema. No thyromegaly. CARDIOVASCULAR: S1 and S2 muffled PULMONARY: Diminished breath sounds bilaterally, no wheezing or crackles. ABDOMEN: Soft, nontender, bowel sounds present improved normoactive. MUSCULOSKELETAL: No joint swelling or deformity. EXTREMITIES: No cyanosis, clubbing, or pedal edema. NEUROLOGICAL: Gross neurological examination did not reveal any focal deficits. Diffuse muscle atrophy generalized weakness. SKIN: No rashes. Assessment: -Partial small bowel obstruction/ileus -Hypokalemia from poor oral intake, improved. -Hypoglycemia from poor oral intake, resolved -History of DVT -Hyperlipidemia -Gastroesophageal reflux disease -History osteoarthritis -DVT prophylaxis: Low-dose Lovenox -GI prophylaxis: ppi -Full Code Plan: Patient's diet has been advanced to regular and recommending small frequent meals and thoroughly chewing all of her food as patient had an episode of emesis last night. Patient tolerated all of his morning breakfast with no nausea or vomiting or abdominal pain Continue with IV fluids overnight and replace magnesium per protocol Home with homecare on discharge Possible discharge in 24 hours The impression and plan of care has been dictated by Soha Meza, Nurse Practitioner as directed. Dr. Jp MD I have performed a history and examination and MDM of this patient, discussed the same with the dictator, and agree with the dictator's assessment and plan as written ,documented as a scribe. Based on total visit time, I have performed more than 50% of the visit. Objective - Vital Signs Vital signs: Vital Signs Temp 98.4 F 09/01/21 07:43 Pulse 80 09/01/21 07:43 Resp 16 09/01/21 07:43 BP 128/86 09/01/21 07:43 Pulse Ox 97 09/01/21 07:43 FiO2 Intake & Output 08/31/21 09/01/21 09/01/21 18:59 06:59 18:59 Output Total 801 400 Balance -801 -400 Output: Urine 800 400 Stool 1 Other: Voiding Method Diaper Diaper External Catheter External Catheter # Voids 3 2 1 # Bowel Movements 1 # Emeses 4 - Labs CBC & Chem 7: 08/28/21 07:00 08/31/21 03:34
[2021-09-01] MEDS: ONDANSETRON 4 MG/2 ML VIAL IVP PRN (19:48)
[2021-09-02] MEDS: PANTOPRAZOLE 40 MG/10 ML VIAL IV SCH (08:16)
[2021-09-02] MEDS: POTASSIUM CHLORIDE ER 20 MEQ TAB.ER PO SCH (09:40)
[2021-09-02] MEDS: amLODIPine 5 MG TAB PO SCH (09:40)
[2021-09-02] MEDS: SODIUM CHLORIDE 0.45% 1,000 ML IV SCH ×2 (09:45→21:25)
[2021-09-02 10:54] VITALS: BMI 22.4
--- NOTE | 2021-09-02 14:35 | P.PN ---
Subjective Progress Note Date: 09/02/21 CHIEF COMPLAINT: Abdominal pain HISTORY OF PRESENT ILLNESS: Patient is being followed for small bowel obs truction. Patient reports increase in abdominal pain after eating. She is having flatus. Last bowel movement was 2 days ago. Apparently she did have an episode of vomiting on Sunday. She does rate her pain about 8 out of 10 and is located more on the left side of the abdomen. Per nursing staff patient eats very fast with minimal chewing. Afebrile. Sodium 138 potassium 4.7 creatinine 0.5 Patient seen and examined with Dr. nieves PHYSICAL EXAM: VITAL SIGNS: Reviewed. GENERAL: Well-developed in no acute distress. HEENT: No sclera icterus. Extraocular movements grossly intact. Moist buccal mucosa. Head is atraumatic, normocephalic. ABDOMEN: Soft. Nondistended. Minimal tenderness with palpation of the left side of the abdomen NEUROLOGIC: Alert and oriented. Cranial nerves II through XII grossly intact. ASSESSMENT: 1. Mechanical small bowel obstruction and dilated stomach 2. Prior history of gastric outlet obstruction and required conversion of loop gastrojejunostomy tube Darek-en-Y jejunostomy for gastric outlet obstruction in September 2020 PLAN: -Patient seen and examined with Dr. nieves. Surgeon is aware of patient's symptoms. He recommended to downgrade diet to full liquids. Continue to observe patient. And recommend computed tomography scan of abdomen and pelvis with contrast on 09/05/2021 -Continue supportive care Physician Pipe [employer]pper note has been reviewed by physician. Signing provider agrees with the documented findings, assessment, and plan of care. Objective - Vital Signs Vital signs: Vital Signs Temp 98.4 F 09/02/21 09:37 Pulse 89 09/02/21 09:37 Resp 16 09/02/21 09:37 BP 127/82 09/02/21 09:37 Pulse Ox 96 09/02/21 09:37 FiO2 Intake & Output 09/01/21 09/02/21 09/02/21 18:59 06:59 18:59 Intake Total 600 296 Output Total 400 400 800 Balance -400 200 -504 Weight 52.163 kg Intake: Intake, IV Titration 600 Amount Sodium Chloride 0.45% 1, 600 000 ml @ 50 mls/hr IV . Q20H [facility] Rx#:[id number] Oral 296 Output: Urine 400 400 800 Other: Voiding Method Diaper Diaper Diaper External Catheter External Catheter External Catheter # Voids 1 3 - Labs CBC & Chem 7: 08/28/21 07:00 08/31/21 03:34
[2021-09-02] MEDS: MORPHINE SULFATE 4 MG/ML SYRINGE IV PRN (19:45)
--- NOTE | 2021-09-03 04:43 | P.PN ---
Subjective Progress Note Date: 09/02/21 76-year-old female came in with comments of nausea vomiting and constipation. Patient is found to have inefficiently dilated stomach and small bowel. Patient is not having nausea at this time. Patient had a bowel movement yesterday does have sluggish bowel sounds abdominal pain improved. Her abdominal pain is diffuse moderate severity crampy in nature. Patient had a gastrojejunostomy for gastric outlet obstruction and patient was having problems with the ileus and in her hospital patient also had a recent laparotomy with additional lysis. Patient presently doesn't have any NG tube 08/27/2021 Patient is evaluated today resting in bed with NG tube in place. She is feeling hungry and requesting food and drink. She had a bowel movement and is passing some gas. No nausea reported. Labs today showing potassium 2.9 which she will receive IV potassium and we will repeat potassium level later on this evening. hgb 10.8, lactic acid has improved down to 1.4. Magnesium 1.7 today. Will also receive 2 grams of IV magnesium. 08/28/2021 Patient evaluated today resting in bed. NGT continues and she is draining. Was started on popsicles and ice chips yesterday and today she is requesting clear liquid diet. No nausea or diarrhea noted. She has not had BM today. No acute events over night. No abdominal pain as well. White count 7.85, hgb 12.2, platelet 321. Sodium 143, potassium 4.1, BUN 15.2, creat 0.6. Blood glucose 63 this morning in serum blood draw. One time CBG accucheck ordered to follow up. She is afebrile today, heart rate 75, blood pressure 115/74, 98% room air. She had extravasation of IV potassium through peripheral line last night. RN unsure how much potassium from the bag was infused through that site. Instructed to leave cannula in and attempt to aspirate some of the fluid.. Remove the cannula and ice and elevate the extremity and monitor site. 08/29/2021 Patient is continued on ice chips and popsicles throughout the night and repeat abdominal xray is ordered today by surgical group. She is on D5 IV fluids, and was stopped as she is able to eat ice chips and popsicles will follow up blood glucose to ensure staying stable. Xray showing possible portal venous gas seen on CT scan not confirmed on xray, nonspecific bowel gas pattern. NG Tube will be removed today and diet will be advanced to clear liquid diet. Blood glucose has improved 118. Potassium 3.2 today patient recieved a total of 40 meq will recheck later this evening and replace as needed. Blood pressure 130/78, heart rate 69, temp 98.1, 98.5 temp. 08/30/2021 NG Tube removed yesterday, and diet has been advanced to full liquid by surgical team. Pt still with no BM since the , dulcolax suppository has been ordered. She is denying abdominal pain, no nausea, no vomiting. Sitting up in the chair today. Labs today have improved, sodium 141, potassium 4.5, glucose 107. She has remained afebrile, heart rate 76, blood pressure 116/73, 99% room air. Will give some gentle hydration overnight. 08/31/2021 Patient is seen and evaluated today tolerating full liquids and them being advanced to regular diet per surgery. Patient is having bowel movements and denies any abdominal pain at this time. Patient denies nausea or vomiting and is anxious about being discharged home too soon. Recommend close observation with increase in diet overnight and will likely discharge home with home care in 24 hours. Replace magnesium per protocol and will follow-up with repeat labs. Patient denies chest pain or shortness of breath. Patient is afebrile. 09/01/2021 Patient is seen in follow-up this morning reports to having an episode of emesis yesterday shortly after dinner and patient reports to completing 100% of her meal and had some abdominal discomfort and was given morphine and subsequently had vomiting after that. Discussed with the nursing staff along with the p atient about small frequent meals as patient frequently has intolerance to large meals. Patient evaluated by surgery recommending continuing current regimen and cleared from their standpoint. Will monitor closely overnight for diet tolerance and again encouraged small frequent meals and chewing all of her meal as nursing staff reported her emesis appeared to have full pieces of food but did not appear chewed. Patient denies chest pain, shortness of breath, or palpitations. Patient is afebrile. 09/02/2021 Patient is seen today and reports to having increasing abdominal pain and rating it as severe and surgery following and decreasing diet back to full liquids and repeating ct abdomen in the next few days. No new labs from today and will reorder. Patient needs to continue on full liquid or soft dysphagia diet at all times given her chronic abdominal pain and intolerance to food. Patient encouraged to slow down while eating and chew food more and she eats very quickly and then subsequently has abdominal pain after. Patient is afebrile and denies chest pain or shortness of breath. Review of Systems Constitutional: Denied any fatigue denied any fever. Cardio vascular: denied any chest pain, palpitations Gastrointestinal: denied any nausea, vomiting, diarrhea, reports severe a bdominal pain today. Reports to having some cramping Pulmonary: Denied any shortness of breath cough Neurologic denied any new focal deficits All inpatient medications were reviewed and appropriate changes in these medications as dictated in the interval history and assessment and plan. PHYSICAL EXAMINATION: GENERAL: The patient is alert and oriented x3, not in any acute distress. Thin built HEENT: Pupils are round and equally reacting to light. EOMI. No scleral icterus. No conjunctival pallor. Normocephalic, atraumatic. No pharyngeal erythema. No thyromegaly. CARDIOVASCULAR: S1 and S2 muffled PULMONARY: Diminished breath sounds bilaterally, no wheezing or crackles. ABDOMEN: Soft, tender, bowel sounds present improved normoactive. MUSCULOSKELETAL: No joint swelling or deformity. EXTREMITIES: No cyanosis, clubbing, or pedal edema. NEUROLOGICAL: Gross neurological examination did not reveal any focal deficits. Diffuse muscle atrophy generalized weakness. SKIN: No rashes. Assessment: -Partial small bowel obstruction/ileus -Hypokalemia from poor oral intake, improved. -Hypoglycemia from poor oral intake, resolved -History of DVT -Hyperlipidemia -Gastroesophageal reflux disease -History osteoarthritis -DVT prophylaxis: Low-dose Lovenox -GI prophylaxis: ppi -Full Code Plan: Patient's diet being pushed back to full liquids per surgery as patient is reporting severe abdominal pain. REpeat CT abd ordered for sunday and recommending small frequent meals and thoroughly chewing all of her food as patient had an episode of emesis recently after started regular diet. Patient tolerated all of this morning breakfast with no nausea or vomiting or abdominal pain but started having increasing pain after meal. Continue with gentle IV fluids overnight and replace magnesium per protocol, recommend repeat labs in am Home with homecare on discharge Prognosis is guarded The impression and plan of care has been dictated by Soha Meza, Nurse Practitioner as directed. Dr. Jodie MD I have performed a history and examination and MDM of this patient, discussed the same with the dictator, and agree with the dictator's assessment and plan as written ,documented as a scribe. Based on total visit time, I have performed more than 50% of the visit. Objective - Vital Signs Vital signs: Vital Signs Temp 99.1 F 09/03/21 01:22 Pulse 91 09/03/21 01:22 Resp 16 09/03/21 01:22 BP 121/81 09/03/21 01:22 Pulse Ox 96 09/03/21 01:22 FiO2 Intake & Output 09/02/21 09/02/21 09/03/21 06:59 18:59 06:59 Intake Total 600 296 Output Total 400 1200 900 Balance 200 -904 -900 Weight 52.163 kg Intake: Intake, IV Titration 600 Amount Sodium Chloride 0.45% 1, 600 000 ml @ 50 mls/hr IV . Q20H [facility] Rx#:[id number] Oral 296 Output: Urine 400 1200 900 Other: Voiding Method Diaper Diaper External Catheter External Catheter External Catheter # Voids 3 - Labs CBC & Chem 7: 08/28/21 07:00 08/31/21 03:34
[2021-09-03] MEDS: amLODIPine 5 MG TAB PO SCH (07:07)
[2021-09-03] MEDS: POTASSIUM CHLORIDE ER 20 MEQ TAB.ER PO SCH (07:07)
[2021-09-03 07:15] LABS: Basophils # (A) 0.1 k/uL (0-0.2); Basophils % (A) 1 %; Eosinophils # (A) 0.2 k/uL (0-0.7); Eosinophils % (A) 2 %; HCT 39.4 % (34.0-46.0); HGB 12.1 gm/dL (11.4-16.0); Lymphocytes # (A) 1.7 k/uL (1.0-4.8); Lymphocytes % (A) 14 %; MCH 26.2 pg (25.0-35.0); MCHC 30.8 g/dL (31.0-37.0); MCV 85.2 fL (80.0-100.0); Mean Platelet Volume 8.8; Monocytes # (A) 0.9 k/uL (0-1.0); Monocytes % (A) 7 %; Neutrophils # (A) 9.1 k/uL (1.3-7.7); Neutrophils % (A) 74 %; Platelet Count 286 k/uL (150-450); RBC 4.62 m/uL (3.80-5.40); RDW 15.8 % (11.5-15.5); WBC 12.2 k/uL (3.8-10.6)
[2021-09-03 07:34] LABS: African American GFR (CKD) >90 (>60 ml/min/1.73 sqM); Anion Gap 8 mmol/L; Blood Urea Nitrogen 11 mg/dL (7-17); Calcium 8.8 mg/dL (8.4-10.2); Carbon Dioxide 27 mmol/L (22-30); Chloride 99 mmol/L (98-107); Glucose 95 mg/dL (74-99); Magnesium 1.7 mg/dL (1.6-2.3); Non-African American GFR(CKD) >90 (>60 ml/min/1.73 sqM); Potassium 4.8 mmol/L (3.5-5.1); Sodium 134 mmol/L (137-145)
[2021-09-03] MEDS: PANTOPRAZOLE 40 MG/10 ML VIAL IV SCH (08:03)
[2021-09-03] MEDS: MAGNESIUM SULFATE-D5W PMX 1 GM in DEXTROSE/WATER 1 100ML.BAG IVPB SCH ×2 (12:34→14:01)
--- NOTE | 2021-09-03 13:43 | P.PN ---
Subjective Progress Note Date: 09/03/21 CHIEF COMPLAINT: Bowel obstruction HISTORY OF PRESENT ILLNESS: The patient is a 76-year-old female with complicated history of gastric outlet obstruction and multiple abdominal surgeries including a loop gastrojejunostomy followed by a Darek-en-Y conversion. Patient is resting comfortably. Yesterday, patient had abdominal pain. Today, she is about to have a sandwich. Family is at bedside. She denies abdominal pain. In fact she feels well. ROS: No reports of nausea and vomiting. No fevers or chills. No new chest pain. No productive sputum PHYSICAL EXAM: VITAL SIGNS: Reviewed CONSTITUTIONAL: Well developed and in no acute distress. EYES: Conjuctivae without sclera icterus. Extraocular movements grossly intact. HEAD, EARS, NOSE, THROAT: Moist buccal mucosa. Head is atraumatic, no rmocephalic. Hears conversational speech. No nasal drainage. RESPIRATORY: Non-labored respirations and equal bilateral excursions. CARDIOVASCULAR: Palpable 2+ radial pulses. ABDOMEN: Nontender. No peritonitis. MUSCULOSKELETAL: No gross deformity of the lower extremities noted. No clubbing. No cyanosis. SKIN: Good skin turgor. Well perfused. NEUROLOGIC: Cranial nerves II through XII grossly intact. No focal or lateralizing signs. PSYCH: Appropriate affect. Alert and oriented to person, place and time. CLINICAL LABS: Reviewed. WBC elevated 12.2. Potassium 4.8. ASSESSMENT: 1. Abdominal pain due to bowel obstruction, improved 2. Hypokalemia, now resolved PLAN: 1. Clinically, patient is responding well to conservative management. 2. Diet as tolerated Objective - Vital Signs Vital signs: Vital Signs Temp 98.0 F 09/03/21 07:27 Pulse 83 09/03/21 07:27 Resp 17 09/03/21 07:27 BP 122/81 09/03/21 07:27 Pulse Ox 95 09/03/21 07:27 FiO2 Intake & Output 09/02/21 09/03/21 09/03/21 18:59 06:59 18:59 Intake Total 296 Output Total 1200 1300 Balance -904 -1300 Weight 52.163 kg Intake: Oral 296 Output: Urine 1200 1300 Other: Voiding Method Diaper External Catheter External Catheter External Catheter # Voids 1 # Bowel Movements 1 - Labs CBC & Chem 7: 09/03/21 06:51 09/03/21 06:51 Labs: Abnormal Lab Results - Last 24 Hours (Table) 09/03/21 09/03/21 Range/Units 06:51 06:51 WBC 12.2 H (3.8-10.6) k/uL MCHC 30.8 L (31.0-37.0) g/dL RDW 15.8 H (11.5-15.5) % Neutrophils # 9.1 H (1.3-7.7) k/uL Sodium 134 L (137-145) mmol/L Creatinine 0.49 L (0.52-1.04) mg/dL
[2021-09-03] MEDS: SODIUM CHLORIDE 0.45% 1,000 ML IV SCH (16:29)
[2021-09-03] MEDS: MORPHINE SULFATE 4 MG/ML SYRINGE IV PRN (17:07)
--- NOTE | 2021-09-03 22:56 | P.PN ---
Subjective Progress Note Date: 09/03/21 76-year-old female came in with comments of nausea vomiting and constipation. Patient is found to have inefficiently dilated stomach and small bowel. Patient is not having nausea at this time. Patient had a bowel movement yesterday does have sluggish bowel sounds abdominal pain improved. Her abdominal pain is diffuse moderate severity crampy in nature. Patient had a gastrojejunostomy for gastric outlet obstruction and patient was having problems with the ileus and in her hospital patient also had a recent laparotomy with additional lysis. Patient presently doesn't have any NG tube 08/27/2021 Patient is evaluated today resting in bed with NG tube in place. She is feeling hungry and requesting food and drink. She had a bowel movement and is passing some gas. No nausea reported. Labs today showing potassium 2.9 which she will receive IV potassium and we will repeat potassium level later on this evening. hgb 10.8, lactic acid has improved down to 1.4. Magnesium 1.7 today. Will also receive 2 grams of IV magnesium. 08/28/2021 Patient evaluated today resting in bed. NGT continues and she is draining. Was started on popsicles and ice chips yesterday and today she is requesting clear liquid diet. No nausea or diarrhea noted. She has not had BM today. No acute events over night. No abdominal pain as well. White count 7.85, hgb 12.2, platelet 321. Sodium 143, potassium 4.1, BUN 15.2, creat 0.6. Blood glucose 63 this morning in serum blood draw. One time CBG accucheck ordered to follow up. She is afebrile today, heart rate 75, blood pressure 115/74, 98% room air. She had extravasation of IV potassium through peripheral line last night. RN unsure how much potassium from the bag was infused through that site. Instructed to leave cannula in and attempt to aspirate some of the fluid.. Remove the cannula and ice and elevate the extremity and monitor site. 08/29/2021 Patient is continued on ice chips and popsicles throughout the night and repeat abdominal xray is ordered today by surgical group. She is on D5 IV fluids, and was stopped as she is able to eat ice chips and popsicles will follow up blood glucose to ensure staying stable. Xray showing possible portal venous gas seen on CT scan not confirmed on xray, nonspecific bowel gas pattern. NG Tube will be removed today and diet will be advanced to clear liquid diet. Blood glucose has improved 118. Potassium 3.2 today patient recieved a total of 40 meq will recheck later this evening and replace as needed. Blood pressure 130/78, heart rate 69, temp 98.1, 98.5 temp. 08/30/2021 NG Tube removed yesterday, and diet has been advanced to full liquid by surgical team. Pt still with no BM since the , dulcolax suppository has been ordered. She is denying abdominal pain, no nausea, no vomiting. Sitting up in the chair today. Labs today have improved, sodium 141, potassium 4.5, glucose 107. She has remained afebrile, heart rate 76, blood pressure 116/73, 99% room air. Will give some gentle hydration overnight. 08/31/2021 Patient is seen and evaluated today tolerating full liquids and them being advanced to regular diet per surgery. Patient is having bowel movements and denies any abdominal pain at this time. Patient denies nausea or vomiting and is anxious about being discharged home too soon. Recommend close observation with increase in diet overnight and will likely discharge home with home care in 24 hours. Replace magnesium per protocol and will follow-up with repeat labs. Patient denies chest pain or shortness of breath. Patient is afebrile. 09/01/2021 Patient is seen in follow-up this morning reports to having an episode of emesis yesterday shortly after dinner and patient reports to completing 100% of her meal and had some abdominal discomfort and was given morphine and subsequently had vomiting after that. Discussed with the nursing staff along with the p atient about small frequent meals as patient frequently has intolerance to large meals. Patient evaluated by surgery recommending continuing current regimen and cleared from their standpoint. Will monitor closely overnight for diet tolerance and again encouraged small frequent meals and chewing all of her meal as nursing staff reported her emesis appeared to have full pieces of food but did not appear chewed. Patient denies chest pain, shortness of breath, or palpitations. Patient is afebrile. 09/02/2021 Patient is seen today and reports to having increasing abdominal pain and rating it as severe and surgery following and decreasing diet back to full liquids and repeating ct abdomen in the next few days. No new labs from today and will reorder. Patient needs to continue on full liquid or soft dysphagia diet at all times given her chronic abdominal pain and intolerance to food. Patient encouraged to slow down while eating and chew food more and she eats very quickly and then subsequently has abdominal pain after. Patient is afebrile and denies chest pain or shortness of breath. 09/03/2021 Patient seen this morning and doing well on full liquid diet with surgery following and will continue with current diet and NPO at midnight on Sunday with repeat abd CT to evaluate continued abdominal pain. Per nursing staff patient had a large bowel movement today. magnesium is 1.7 and will replace per protocol. Patient is afebrile and denies chest pain or shortness of breath. Review of Systems Constitutional: Denied any fatigue denied any fever. Cardio vascular: denied any chest pain, palpitations Gastrointestinal: denied any nausea, vomiting, diarrhea, reports less abdominal pain today. Reports to tolerating full liquid diet, large bm last night Pulmonary: Denied any shortness of breath cough Neurologic denied any new focal deficits All inpatient medications were reviewed and appropriate changes in these medications as dictated in the interval history and assessment and plan. PHYSICAL EXAMINATION: GENERAL: The patient is alert and oriented x3, not in any acute distress. Thin built HEENT: Pupils are round and equally reacting to light. EOMI. No scleral icterus. No conjunctival pallor. Normocephalic, atraumatic. No pharyngeal erythema. No thyromegaly. CARDIOVASCULAR: S1 and S2 muffled PULMONARY: Diminished breath sounds bilaterally, no wheezing or crackles. ABDOMEN: Soft, less tender, bowel sounds present improved normoactive. MUSCULOSKELETAL: No joint swelling or deformity. EXTREMITIES: No cyanosis, clubbing, or pedal edema. NEUROLOGICAL: Gross neurological examination did not reveal any focal deficits. Diffuse muscle atrophy generalized weakness. SKIN: No rashes. Assessment: -Partial small bowel obstruction/ileus -Hypokalemia from poor oral intake, improved. -Hypoglycemia from poor oral intake, resolved -hypomagnesemia -History of DVT -Hyperlipidemia -Gastroesophageal reflux disease -History osteoarthritis -DVT prophylaxis: Low-dose Lovenox -GI prophylaxis: ppi -Full Code Plan: Patient's diet being pushed back to full liquids per surgery as patient is reporting continued abdominal pain. Repeat CT abd ordered for sunday and recommending small frequent meals and thoroughly chewing all of her food as patient had an episode of emesis recently after started regular diet. Patient tolerated all of this morning breakfast with no nausea or vomiting or abdominal pain Continue with gentle IV fluids overnight and replace magnesium per protocol Home with homecare on discharge Prognosis is guarded The impression and plan of care has been dictated by Soha Meza, Nurse Practitioner as directed. Dr. Jodie MD I have performed a history and examination and MDM of this patient, discussed the same with the dictator, and agree with the dictator's assessment and plan as written ,documented as a scribe. Based on total visit time, I have performed more than 50% of the visit. Objective - Vital Signs Vital signs: Vital Signs Temp 98.4 F 09/03/21 13:56 Pulse 88 09/03/21 13:56 Resp 16 09/03/21 13:56 BP 118/77 09/03/21 13:56 Pulse Ox 96 09/03/21 13:56 FiO2 Intake & Output 09/03/21 09/03/21 09/04/21 06:59 18:59 06:59 Output Total 1300 Balance -1300 Output: Urine 1300 Other: Voiding Method External Catheter External Catheter # Voids 1 # Bowel Movements 1 - Labs CBC & Chem 7: 09/03/21 06:51 09/03/21 06:51 Labs: Abnormal Lab Results - Last 24 Hours (Table) 09/03/21 09/03/21 Range/Units 06:51 06:51 WBC 12.2 H (3.8-10.6) k/uL MCHC 30.8 L (31.0-37.0) g/dL RDW 15.8 H (11.5-15.5) % Neutrophils # 9.1 H (1.3-7.7) k/uL Sodium 134 L (137-145) mmol/L Creatinine 0.49 L (0.52-1.04) mg/dL
[2021-09-04] MEDS: MORPHINE SULFATE 4 MG/ML SYRINGE IV PRN (04:25)
[2021-09-04] MEDS: POTASSIUM CHLORIDE ER 20 MEQ TAB.ER PO SCH (07:19)
[2021-09-04] MEDS: amLODIPine 5 MG TAB PO SCH (07:20)
[2021-09-04] MEDS: PANTOPRAZOLE 40 MG/10 ML VIAL IV SCH (08:47)
[2021-09-04] MEDS: SODIUM CHLORIDE 0.45% 1,000 ML IV SCH (08:49)
--- NOTE | 2021-09-04 11:58 | P.PN ---
Subjective Progress Note Date: 09/04/21 76-year-old female came in with comments of nausea vomiting and constipation. Patient is found to have inefficiently dilated stomach and small bowel. Patient is not having nausea at this time. Patient had a bowel movement yesterday does have sluggish bowel sounds abdominal pain improved. Her abdominal pain is diffuse moderate severity crampy in nature. Patient had a gastrojejunostomy for gastric outlet obstruction and patient was having problems with the ileus and in her hospital patient also had a recent laparotomy with additional lysis. Patient presently doesn't have any NG tube 08/27/2021 Patient is evaluated today resting in bed with NG tube in place. She is feeling hungry and requesting food and drink. She had a bowel movement and is passing some gas. No nausea reported. Labs today showing potassium 2.9 which she will receive IV potassium and we will repeat potassium level later on this evening. hgb 10.8, lactic acid has improved down to 1.4. Magnesium 1.7 today. Will also receive 2 grams of IV magnesium. 08/28/2021 Patient evaluated today resting in bed. NGT continues and she is draining. Was started on popsicles and ice chips yesterday and today she is requesting clear liquid diet. No nausea or diarrhea noted. She has not had BM today. No acute events over night. No abdominal pain as well. White count 7.85, hgb 12.2, platelet 321. Sodium 143, potassium 4.1, BUN 15.2, creat 0.6. Blood glucose 63 this morning in serum blood draw. One time CBG accucheck ordered to follow up. She is afebrile today, heart rate 75, blood pressure 115/74, 98% room air. She had extravasation of IV potassium through peripheral line last night. RN unsure how much potassium from the bag was infused through that site. Instructed to leave cannula in and attempt to aspirate some of the fluid.. Remove the cannula and ice and elevate the extremity and monitor site. 08/29/2021 Patient is continued on ice chips and popsicles throughout the night and repeat abdominal xray is ordered today by surgical group. She is on D5 IV fluids, and was stopped as she is able to eat ice chips and popsicles will follow up blood glucose to ensure staying stable. Xray showing possible portal venous gas seen on CT scan not confirmed on xray, nonspecific bowel gas pattern. NG Tube will be removed today and diet will be advanced to clear liquid diet. Blood glucose has improved 118. Potassium 3.2 today patient recieved a total of 40 meq will recheck later this evening and replace as needed. Blood pressure 130/78, heart rate 69, temp 98.1, 98.5 temp. 08/30/2021 NG Tube removed yesterday, and diet has been advanced to full liquid by surgical team. Pt still with no BM since the , dulcolax suppository has been ordered. She is denying abdominal pain, no nausea, no vomiting. Sitting up in the chair today. Labs today have improved, sodium 141, potassium 4.5, glucose 107. She has remained afebrile, heart rate 76, blood pressure 116/73, 99% room air. Will give some gentle hydration overnight. 08/31/2021 Patient is seen and evaluated today tolerating full liquids and them being advanced to regular diet per surgery. Patient is having bowel movements and denies any abdominal pain at this time. Patient denies nausea or vomiting and is anxious about being discharged home too soon. Recommend close observation with increase in diet overnight and will likely discharge home with home care in 24 hours. Replace magnesium per protocol and will follow-up with repeat labs. Patient denies chest pain or shortness of breath. Patient is afebrile. 09/01/2021 Patient is seen in follow-up this morning reports to having an episode of emesis yesterday shortly after dinner and patient reports to completing 100% of her meal and had some abdominal discomfort and was given morphine and subsequently had vomiting after that. Discussed with the nursing staff along with the p atient about small frequent meals as patient frequently has intolerance to large meals. Patient evaluated by surgery recommending continuing current regimen and cleared from their standpoint. Will monitor closely overnight for diet tolerance and again encouraged small frequent meals and chewing all of her meal as nursing staff reported her emesis appeared to have full pieces of food but did not appear chewed. Patient denies chest pain, shortness of breath, or palpitations. Patient is afebrile. 09/02/2021 Patient is seen today and reports to having increasing abdominal pain and rating it as severe and surgery following and decreasing diet back to full liquids and repeating ct abdomen in the next few days. No new labs from today and will reorder. Patient needs to continue on full liquid or soft dysphagia diet at all times given her chronic abdominal pain and intolerance to food. Patient encouraged to slow down while eating and chew food more and she eats very quickly and then subsequently has abdominal pain after. Patient is afebrile and denies chest pain or shortness of breath. 09/03/2021 Patient seen this morning and doing well on full liquid diet with surgery following and will continue with current diet and NPO at midnight on Sunday with repeat abd CT to evaluate continued abdominal pain. Per nursing staff patient had a large bowel movement today. magnesium is 1.7 and will replace per protocol. Patient is afebrile and denies chest pain or shortness of breath. 09/04/2021 Patient evaluated and continues to report abdominal pain and per RN is receiving IV pain medications. Patient is scheduled for CT abdomen on Sunday per surgery and will follow up with treatment plan after scan. Recommend to continue full liquid diet and encouraged increased activity as tolerated. Will order repeat labs. Patient is having bowel movements and no reported vomiting for 48 hours. Afebrile. Review of Systems Constitutional: Denied any fatigue denied any fever. Cardio vascular: denied any chest pain, palpitations Gastrointestinal: denied any nausea, vomiting, diarrhea, reports abdominal pain. Reports to tolerating full liquid diet, having bowel movements Pulmonary: Denied any shortness of breath cough Neurologic denied any new focal deficits All inpatient medications were reviewed and appropriate changes in these medications as dictated in the interval history and assessment and plan. PHYSICAL EXAMINATION: GENERAL: The patient is alert and oriented x3, not in any acute distress. Thin built HEENT: Pupils are round and equally reacting to light. EOMI. No scleral icterus. No conjunctival pallor. Normocephalic, atraumatic. No pharyngeal erythema. No thyromegaly. CARDIOVASCULAR: S1 and S2 muffled PULMONARY: Diminished breath sounds bilaterally, no wheezing or crackles. ABDOMEN: Soft, less tender, bowel sounds present improved normoactive. MUSCULOSKELETAL: No joint swelling or deformity. EXTREMITIES: No cyanosis, clubbing, or pedal edema. NEUROLOGICAL: Gross neurological examination did not reveal any focal deficits. Diffuse muscle atrophy generalized weakness. SKIN: No rashes. Assessment: -Partial small bowel obstruction/ileus -Hypokalemia from poor oral intake, improved. -Hypoglycemia from poor oral intake, resolved -hypomagnesemia -History of DVT -Hyperlipidemia -Gastroesophageal reflux disease -History osteoarthritis -DVT prophylaxis: Low-dose Lovenox -GI prophylaxis: ppi -Full Code Plan: Patient's continued on full liquids per surgery as patient is reporting continued abdominal pain. Repeat CT abd ordered for tomorrow am and recommending small frequent meals and thoroughly chewing all of her food as patient had an episode of emesis recently after started regular diet. NPO at midnight. Will order repeat am labs and replace electrolytes per protocol. Patient tolerated breakfast with no nausea or vomiting Await CT report. Surgery following. Home with homecare on discharge Prognosis is guarded The impression and plan of care has been dictated by Soha Meza Nurse Prac titioner as directed. Dr. Jodie MD I have performed a history and examination and MDM of this patient, discussed the same with the dictator, and agree with the dictator's assessment and plan as written ,documented as a scribe. Based on total visit time, I have performed more than 50% of the visit. Objective - Vital Signs Vital signs: Vital Signs Temp 98.4 F 09/04/21 07:35 Pulse 84 09/04/21 07:35 Resp 16 09/04/21 07:35 BP 113/68 09/04/21 07:35 Pulse Ox 94 L 09/04/21 07:35 FiO2 Intake & Output 09/03/21 09/04/21 09/04/21 18:59 06:59 18:59 Intake Total 480 Output Total 1800 Balance -1800 480 Intake: Oral 480 Output: Urine 1800 Other: Voiding Method External Catheter Bedside Commode Bedside Commode External Catheter # Voids 1 1 # Bowel Movements 1 - Labs CBC & Chem 7: 09/03/21 06:51 09/03/21 06:51
[2021-09-04] MEDS: MAGNESIUM SULFATE-D5W PMX 1 GM in DEXTROSE/WATER 1 100ML.BAG IVPB SCH ×2 (14:41→14:42)
--- NOTE | 2021-09-04 17:16 | P.PN ---
Subjective Progress Note Date: 09/04/21 CHIEF COMPLAINT: Bowel obstruction HISTORY OF PRESENT ILLNESS: The patient is a 76-year-old female with complicated history of gastric outlet obstruction and multiple abdominal surgeries including a loop gastrojejunostomy followed by a Darek-en-Y conversion. She is tolerating diet. She denies any abdominal pain. No reports of nausea and vomiting. ROS: No fevers or chills. No new chest pain. No productive sputum PHYSICAL EXAM: VITAL SIGNS: Reviewed CONSTITUTIONAL: Well developed and in no acute distress. EYES: Conjuctivae without sclera icterus. Extraocular movements grossly intact. HEAD, EARS, NOSE, THROAT: Moist buccal mucosa. Head is atraumatic, normocephalic. Hears conversational speech. No nasal drainage. RESPIRATORY: Non-labored respirations and equal bilateral excursions. CARDIOVASCULAR: Palpable 2+ radial pulses. ABDOMEN: Nontender. No peritonitis. MUSCULOSKELETAL: No gross deformity of the lower extremities noted. No clubbing. No cyanosis. SKIN: Good skin turgor. Well perfused. NEUROLOGIC: Cranial nerves II through XII grossly intact. No focal or lateraliz ing signs. PSYCH: Appropriate affect. Alert and oriented to person, place and time. CLINICAL LABS: Reviewed. Magnesium 2.0 ASSESSMENT: 1. Abdominal pain due to bowel obstruction 2. Hypokalemia PLAN: 1. Diet as tolerated. 2. Clinically stable Objective - Vital Signs Vital signs: Vital Signs Temp 99.1 F 09/04/21 14:00 Pulse 87 09/04/21 14:00 Resp 17 09/04/21 14:00 BP 113/78 09/04/21 14:00 Pulse Ox 96 09/04/21 14:00 FiO2 Intake & Output 09/03/21 09/04/21 09/04/21 18:59 06:59 18:59 Intake Total 720 Output Total 1800 Balance -1800 720 Intake: Oral 720 Output: Urine 1800 Other: Voiding Method External Catheter Bedside Commode Bedside Commode External Catheter # Voids 1 1 # Bowel Movements 1 - Labs CBC & Chem 7: 09/03/21 06:51 09/03/21 06:51
[2021-09-05] MEDS: MORPHINE SULFATE 4 MG/ML SYRINGE IV PRN (01:11)
[2021-09-05] MEDS: amLODIPine 5 MG TAB PO SCH (06:57)
[2021-09-05] MEDS: SODIUM CHLORIDE 0.45% 1,000 ML IV SCH (06:57)
[2021-09-05] MEDS: POTASSIUM CHLORIDE ER 20 MEQ TAB.ER PO SCH (06:57)
[2021-09-05] MEDS: PANTOPRAZOLE 40 MG/10 ML VIAL IV SCH (08:07)
[2021-09-05] MEDS: IOPAMIDOL CONTRAST (ORAL USE) VIAL PO PRN ×2 (08:08→08:55)
--- NOTE | 2021-09-05 11:35 | CT ---
EXAMINATION TYPE: CT abdomen pelvis w con DATE OF EXAM: 09/05/2021 COMPARISON: 08/26/2021 INDICATION: Abdominal pain, f/u on SBO DLP: 578.8 mGycm, Automated exposure control for dose reduction was used. CONTRAST: 100 ml mL of Isovue 300. Study performed with Oral Contrast TECHNIQUE: Axial images were obtained from above the diaphragm to the pubic rami in the axial plane a t 5 mm thick sections. Reconstructed images are reviewed on the computer in the coronal plane. FINDINGS: Limited CT sections are obtained the lung bases. The lung bases are clear. CT ABDOMEN: Liver: Normal Spleen: Normal Pancreas: Normal Adrenal glands: The adrenal glands are normal. Gallbladder: Cholelithiasis. Kidneys: No masses are evident. No hydronephrosis is present. Scattered cysts are within the left k idney. There may be a small cyst superior pole right kidney. Delayed images were obtained through th e kidneys, which remain unremarkable. Aorta: Vascular calcification is within the aorta. Inferior vena cava: Normal. CT PELVIS: Oral contrast extends through loops of bowel to the cecum. Stomach is distended with contrast and joe ris. Correlate for gastroparesis. There are loops of bowel which are incompletely distended or lack o ral contrast limiting their evaluation. Appendix: Not identified. No dilated tubular structure or inflammatory changes are identified. Urinary bladder: Normal. Genitourinary structures: Uterus and the right hemipelvis appears within normal limits. Calcified fib roids are likely present. Adnexa are normal. Osseous structures: No suspicious lytic or sclerotic lesions. Note is made of compression deformities at T12 and L1. Some superior posterior T12 displacement is present estimated at 0.7 cm. Consider add itional workup with MRI. An acute fracture of the anterior S2 level may be present. IMPRESSIONS: 1. Distended stomach. Obstruction is not identified. Consider gastroparesis. 2. Compression deformity T12 and L1 consider additional workup with MRI to evaluate for stenosis. 3. There may be an acute fracture of the S2 level of the sacrum. Correlate with location of pain. 4. No suspicious dilated small bowel loops zones of transition or secondary signs for small bowel obs truction or radiographically evident.
--- NOTE | 2021-09-05 15:08 | P.PN ---
Subjective Progress Note Date: 09/05/21 76-year-old female came in with comments of nausea vomiting and constipation. Patient is found to have inefficiently dilated stomach and small bowel. Patient is not having nausea at this time. Patient had a bowel movement yesterday does have sluggish bowel sounds abdominal pain improved. Her abdominal pain is diffuse moderate severity crampy in nature. Patient had a gastrojejunostomy for gastric outlet obstruction and patient was having problems with the ileus and in her hospital patient also had a recent laparotomy with additional lysis. Patient presently doesn't have any NG tube 08/27/2021 Patient is evaluated today resting in bed with NG tube in place. She is feeling hungry and requesting food and drink. She had a bowel movement and is passing some gas. No nausea reported. Labs today showing potassium 2.9 which she will receive IV potassium and we will repeat potassium level later on this evening. hgb 10.8, lactic acid has improved down to 1.4. Magnesium 1.7 today. Will also receive 2 grams of IV magnesium. 08/28/2021 Patient evaluated today resting in bed. NGT continues and she is draining. Was started on popsicles and ice chips yesterday and today she is requesting clear liquid diet. No nausea or diarrhea noted. She has not had BM today. No acute events over night. No abdominal pain as well. White count 7.85, hgb 12.2, platelet 321. Sodium 143, potassium 4.1, BUN 15.2, creat 0.6. Blood glucose 63 this morning in serum blood draw. One time CBG accucheck ordered to follow up. She is afebrile today, heart rate 75, blood pressure 115/74, 98% room air. She had extravasation of IV potassium through peripheral line last night. RN unsure how much potassium from the bag was infused through that site. Instructed to leave cannula in and attempt to aspirate some of the fluid.. Remove the cannula and ice and elevate the extremity and monitor site. 08/29/2021 Patient is continued on ice chips and popsicles throughout the night and repeat abdominal xray is ordered today by surgical group. She is on D5 IV fluids, and was stopped as she is able to eat ice chips and popsicles will follow up blood glucose to ensure staying stable. Xray showing possible portal venous gas seen on CT scan not confirmed on xray, nonspecific bowel gas pattern. NG Tube will be removed today and diet will be advanced to clear liquid diet. Blood glucose has improved 118. Potassium 3.2 today patient recieved a total of 40 meq will recheck later this evening and replace as needed. Blood pressure 130/78, heart rate 69, temp 98.1, 98.5 temp. 08/30/2021 NG Tube removed yesterday, and diet has been advanced to full liquid by surgical team. Pt still with no BM since the , dulcolax suppository has been ordered. She is denying abdominal pain, no nausea, no vomiting. Sitting up in the chair today. Labs today have improved, sodium 141, potassium 4.5, glucose 107. She has remained afebrile, heart rate 76, blood pressure 116/73, 99% room air. Will give some gentle hydration overnight. 08/31/2021 Patient is seen and evaluated today tolerating full liquids and them being advanced to regular diet per surgery. Patient is having bowel movements and denies any abdominal pain at this time. Patient denies nausea or vomiting and is anxious about being discharged home too soon. Recommend close observation with increase in diet overnight and will likely discharge home with home care in 24 hours. Replace magnesium per protocol and will follow-up with repeat labs. Patient denies chest pain or shortness of breath. Patient is afebrile. 09/01/2021 Patient is seen in follow-up this morning reports to having an episode of emesis yesterday shortly after dinner and patient reports to completing 100% of her meal and had some abdominal discomfort and was given morphine and subsequently had vomiting after that. Discussed with the nursing staff along with the p atient about small frequent meals as patient frequently has intolerance to large meals. Patient evaluated by surgery recommending continuing current regimen and cleared from their standpoint. Will monitor closely overnight for diet tolerance and again encouraged small frequent meals and chewing all of her meal as nursing staff reported her emesis appeared to have full pieces of food but did not appear chewed. Patient denies chest pain, shortness of breath, or palpitations. Patient is afebrile. 09/02/2021 Patient is seen today and reports to having increasing abdominal pain and rating it as severe and surgery following and decreasing diet back to full liquids and repeating ct abdomen in the next few days. No new labs from today and will reorder. Patient needs to continue on full liquid or soft dysphagia diet at all times given her chronic abdominal pain and intolerance to food. Patient encouraged to slow down while eating and chew food more and she eats very quickly and then subsequently has abdominal pain after. Patient is afebrile and denies chest pain or shortness of breath. 09/03/2021 Patient seen this morning and doing well on full liquid diet with surgery following and will continue with current diet and NPO at midnight on Sunday with repeat abd CT to evaluate continued abdominal pain. Per nursing staff patient had a large bowel movement today. magnesium is 1.7 and will replace per protocol. Patient is afebrile and denies chest pain or shortness of breath. 09/04/2021 Patient evaluated and continues to report abdominal pain and per RN is receiving IV pain medications. Patient is scheduled for CT abdomen on Sunday per surgery and will follow up with treatment plan after scan. Recommend to continue full liquid diet and encouraged increased activity as tolerated. Will order repeat labs. Patient is having bowel movements and no reported vomiting for 48 hours. Afebrile. 09/05/2021 Patient is seen in follow-up today and tolerating full liquid diet and patient underwent CT abdomen per surgery today showing a distended stomach with no obstruction identified consider gastroparesis with no suspicious dilated small bowel loops zones of transition or secondary signs for small bowel obstruction evident. Encourage oral intake and continue with full liquids and small frequent meals with chewing and taking time to eat. Will await and appreciate surgical input. No plans for further surgical interventions at this time. Patient continues with weakness and will be returning home with her sister who she resides with and is her caregiver. Patient denies chest pain or shortness of breath and patient is afebrile. Possible discharge in 24 hours. Repeat m agnesium was 2.0. Review of Systems Constitutional: Denied any fatigue denied any fever. Cardio vascular: denied any chest pain, palpitations Gastrointestinal: denied any nausea, vomiting, diarrhea Pulmonary: Denied any shortness of breath cough Neurologic denied any new focal deficits All inpatient medications were reviewed and appropriate changes in these medications as dictated in the interval history and assessment and plan. PHYSICAL EXAMINATION: GENERAL: The patient is alert and oriented x3. Thin built HEENT: Pupils are round and equally reacting to light. EOMI. No scleral icterus. No conjunctival pallor. Normocephalic, atraumatic. No pharyngeal erythema. No thyromegaly. CARDIOVASCULAR: S1 and S2 muffled PULMONARY: Diminished breath sounds bilaterally, no wheezing or crackles. ABDOMEN: Soft, less tender, bowel sounds present improved normoactive. MUSCULOSKELETAL: No joint swelling or deformity. EXTREMITIES: No cyanosis, clubbing, or pedal edema. NEUROLOGICAL: Gross neurological examination did not reveal any focal deficits. Diffuse muscle atrophy generalized weakness. SKIN: No rashes. Assessment: -Partial small bowel obstruction/ileus -Hypokalemia from poor oral intake, improved. -Hypoglycemia from poor oral intake, resolved -hypomagnesemia -History of DVT -Hyperlipidemia -Gastroesophageal reflux disease -History osteoarthritis -DVT prophylaxis: Low-dose Lovenox -GI prophylaxis: ppi -Full Code Plan: Patient's continued on full liquids per surgery as patient is reporting continued abdominal pain. Repeat CT abd with no signs of obstruction and await surgical recommendations. No plans for surgical intervention at this time. Patient is tolerating full liquids and recommend continue with this diet and recommending small frequent meals and thoroughly chewing all of her food Patient tolerated breakfast with no nausea or vomiting Surgery following. Home with homecare on discharge Prognosis is guarded Possible discharge in 24 hours. The impression and plan of care has been dictated by Soha Meza, Nurse Practitioner as directed. Dr. Jp MD I have performed a history and examination and MDM of this patient, discussed the same with the dictator, and agree with the dictator's assessment and plan as written ,documented as a scribe. Based on total visit time, I have performed more than 50% of the visit. Objective - Vital Signs Vital signs: Vital Signs Temp 98.8 F 09/05/21 07:27 Pulse 78 09/05/21 07:27 Resp 20 09/05/21 07:27 BP 102/65 09/05/21 07:27 Pulse Ox 94 L 09/05/21 07:27 FiO2 Intake & Output 09/04/21 09/05/21 09/05/21 18:59 06:59 18:59 Intake Total 960 Output Total 900 Balance 960 -900 Intake: Oral 960 Output: Urine 900 Other: Voiding Method Bedside Commode Bedside Commode Bedside Commode External Catheter External Catheter # Voids 5 4 - Labs CBC & Chem 7: 09/03/21 06:51 05/28/22 06:51
[2021-09-06 06:01] LABS: Basophils # (A) 0.1 k/uL (0-0.2); Basophils % (A) 1 %; Eosinophils # (A) 0.2 k/uL (0-0.7); Eosinophils % (A) 4 %; HCT 37.1 % (34.0-46.0); HGB 11.6 gm/dL (11.4-16.0); Lymphocytes # (A) 1.7 k/uL (1.0-4.8); Lymphocytes % (A) 30 %; MCH 26.7 pg (25.0-35.0); MCHC 31.3 g/dL (31.0-37.0); MCV 85.4 fL (80.0-100.0); Mean Platelet Volume 8.3; Monocytes # (A) 0.5 k/uL (0-1.0); Monocytes % (A) 9 %; Neutrophils # (A) 3.1 k/uL (1.3-7.7); Neutrophils % (A) 54 %; Platelet Count 326 k/uL (150-450); RBC 4.35 m/uL (3.80-5.40); RDW 15.6 % (11.5-15.5); WBC 5.8 k/uL (3.8-10.6)
[2021-09-06 06:20] LABS: African American GFR (CKD) >90 (>60 ml/min/1.73 sqM); Anion Gap 7 mmol/L; Blood Urea Nitrogen 14 mg/dL (7-17); Calcium 8.9 mg/dL (8.4-10.2); Carbon Dioxide 26 mmol/L (22-30); Chloride 100 mmol/L (98-107); Glucose 91 mg/dL (74-99); Magnesium 1.8 mg/dL (1.6-2.3); Non-African American GFR(CKD) >90 (>60 ml/min/1.73 sqM); Sodium 133 mmol/L (137-145)
--- NOTE | 2021-09-06 07:35 | P.PN ---
Subjective Progress Note Date: 09/06/21 CHIEF COMPLAINT: Bowel obstruction HISTORY OF PRESENT ILLNESS: The patient is a 76-year-old female with complicated history of gastric outlet obstruction and multiple abdominal surgeries including a loop gastrojejunostomy followed by a Darek-en-Y conversion. She is tolerating diet. No reports of nausea and vomiting. ROS: No fevers or chills. No new chest pain. No productive sputum PHYSICAL EXAM: VITAL SIGNS: Reviewed CONSTITUTIONAL: Well developed and in no acute distress. EYES: Conjuctivae without sclera icterus. Extraocular movements grossly intact. HEAD, EARS, NOSE, THROAT: Moist buccal mucosa. Head is atraumatic, normocephalic. Hears conversational speech. No nasal drainage. RESPIRATORY: Non-labored respirations and equal bilateral excursions. CARDIOVASCULAR: Palpable 2+ radial pulses. ABDOMEN: Nontender. No peritonitis. MUSCULOSKELETAL: No gross deformity of the lower extremities noted. No clubbing. No cyanosis. SKIN: Good skin turgor. Well perfused. NEUROLOGIC: Cranial nerves II through XII grossly intact. No focal or lateralizing signs. PSYCH: Appropriate affect. Alert and oriented to person, place and time. CLINICAL LABS: Reviewed. No new labs ASSESSMENT: 1. Abdominal pain due to bowel obstruction 2. Hypokalemia PLAN: 1. Patient reports CT of the pelvis on Sunday. Otherwise clinically doing well. Objective - Vital Signs Vital signs: Vital Signs Temp 98.5 F 09/06/21 00:32 Pulse 86 09/06/21 00:32 Resp 14 09/06/21 00:32 BP 106/67 09/06/21 00:32 Pulse Ox 96 09/06/21 00:32 FiO2 Intake & Output 09/05/21 09/06/21 09/06/21 18:59 06:59 18:59 Intake Total 1080 Output Total 1200 200 Balance -120 -200 Intake: Oral 1080 Output: Urine 1200 200 Other: Voiding Method Bedside Commode External Catheter External Catheter # Voids 1 1 # Bowel Movements 1 1 - Labs CBC & Chem 7: 09/06/21 05:31 09/06/21 05:31 Labs: Abnormal Lab Results - Last 24 Hours (Table) 09/06/21 09/06/21 Range/Units 05: 05: RDW 15.6 H (11.5-15.5) % Sodium 133 L (137-145) mmol/L Creatinine 0.51 L (0.52-1.04) mg/dL
[2021-09-06] MEDS: PANTOPRAZOLE 40 MG/10 ML VIAL IV SCH (08:03)
[2021-09-06] MEDS: POTASSIUM CHLORIDE ER 20 MEQ TAB.ER PO SCH (08:03)
[2021-09-06] MEDS: amLODIPine 5 MG TAB PO SCH (08:03)
[2021-09-06] MEDS: SODIUM CHLORIDE 0.45% 1,000 ML IV SCH (08:06)
--- NOTE | 2021-09-06 12:17 | P.PN ---
Subjective Progress Note Date: 09/06/21 CHIEF COMPLAINT: Abdominal pain HISTORY OF PRESENT ILLNESS: Patient is being followed for small bowel obs truction. Patient reports that she had 3 soft bowel movements today. Occasional nausea. No vomiting. She does have some minimal left-sided and suprapubic pain. She reports that her pain is better than on admission. She had a computed tomography scan of the abdomen yesterday showing distended s tomach. Obstruction is not identified. Consider gastroparesis. Compression deformity T12 and L1. There may be an acute fracture at S to level the sacrum. No suspicious dilated small bowel loops owns a transition or secondary signs for small bowel obstruction. Afebrile. WBC is normalized at 5.8 hemoglobin 11.6 platelets are 26 sodium is 133 potassium is 5 crit 0.51 Patient seen and examined with Dr. nieves PHYSICAL EXAM: VITAL SIGNS: Reviewed. GENERAL: Well-developed in no acute distress. HEENT: No sclera icterus. Extraocular movements grossly intact. Moist buccal mucosa. Head is atraumatic, normocephalic. ABDOMEN: Soft. Nondistended. Minimal tenderness with palpation of the left side of the abdomen NEUROLOGIC: Alert and oriented. Cranial nerves II through XII grossly intact. ASSESSMENT: 1. Mechanical small bowel obstruction and dilated stomach 2. Prior history of gastric outlet obstruction and required conversion of loop gastrojejunostomy tube Darek-en-Y jejunostomy for gastric outlet obstruction in September 2020 PLAN: -Advance diet to ground diet. If patient tolerates diet she can be discharged from surgical standpoint Physician [employer]el[employer] Department Supervisor note has been reviewed by physician. Signing provider agrees with the documented findings, assessment, and plan of care. Objective - Vital Signs Vital signs: Vital Signs Temp 98.5 F 09/06/21 00:32 Pulse 86 09/06/21 00:32 Resp 14 09/06/21 00:32 BP 106/67 09/06/21 00:32 Pulse Ox 96 09/06/21 00:32 FiO2 Intake & Output 09/05/21 09/06/21 09/06/21 18:59 06:59 18:59 Intake Total 1080 Output Total 1200 200 1 Balance -120 -200 -1 Intake: Oral 1080 Output: Urine 1200 200 Urine/Stool Mix 1 Other: Voiding Method Bedside Commode External Catheter External Catheter External Catheter # Voids 1 1 3 # Bowel Movements 1 1 - Labs CBC & Chem 7: 09/06/21 05:31 09/06/21 05:31 Labs: Abnormal Lab Results - Last 24 Hours (Table) 09/06/21 09/06/21 Range/Units 05: 05:31 RDW 15.6 H (11.5-15.5) % Sodium 133 L (137-145) mmol/L Creatinine 0.51 L (0.52-1.04) mg/dL
[2021-09-06 14:49] VITALS: BP 123/75; PULSE 76; RESP 20; TEMP 98.4
--- NOTE | 2021-09-09 10:01 | P.DS ---
Providers Date of admission: 08/26/21 03:03 Expected date of discharge: 09/06/21 Attending physician: Genie Trammell Consults: 08/29/21 08:08 Consult Physician Routine Consulting Provider: Cesar Medeiros Consult Reason/Comments: SBO Do you want consulting provider notified?: Already Contacted Primary care physician: Radha Pagan [facility] Course: Final diagnosis -Partial small bowel obstruction/ileus -Hypokalemia from poor oral intake, improved. -Hypoglycemia from poor oral intake, resolved -hypomagnesemia -History of DVT -Hyperlipidemia -Gastroesophageal reflux disease -History osteoarthritis -DVT prophylaxis -GI prophylaxis -Full Code Discharge disposition Patient is being discharged in a stable condition with guarded prognosis to home with continued home care. Patient will follow-up with Dr. Garcia in the outpatient setting upon discharge. Patient is to also follow-up with general surgery Dr. Medeiros as scheduled. Patient to follow-up with orthopedics ou tpatient. Patient will continued on Reglan 5 mg twice a day along with potassium supplements and recommend to continue with ground diet. Total time taken is greater than 35 minutes. Hospital course This is a 76-year-old female who was recently admitted with nausea and vomiting and constipation patient was found to have dilated stomach and small bowel. Possible small bowel obstruction. No surgical interventions planned and patient was maintained on conservative management with bowel rest and slowly increased and diet with repeat CT showing no evidence of obstruction or bowel loops and recommend to continue with ground diet and also will continue with Reglan and this was discussed with surgery. Patient will follow-up closely with surgery in the outpatient setting along with orthopedics as CT showed some compression deformities in for possible evaluation for stenosis. Patient denies any back pain at this time and again will have resources provided to follow-up with orthopedics outpatient. Patient tolerating diet and having bowel movements and also had a lengthy discussion with the patient about diet and slowly chewing and eating slowly to help with bowel functions. Patient encouraged to follow-up with primary care provider on discharge. Currently no reports of chest pain, shortness of breath, or palpitations. Patient is afebrile. No reports of nausea or vomiting and patient is tolerating diet. Patient will be discharged home today. Guarded prognosis. Patient is high risk for readmissions as patient has had multiple abdominal issues requiring admission. On exam vital signs are stable. Cardio S1, S2 are muffled. Respiratory system shows diminished breath sounds at the bases with no wheezing or rhonchi noted. Abdomen is soft and obese, and nontender. Nervous system shows no focal deficits. Please refer to medication reconciliation sheet for a list of medications. The impression and plan of care has been dictated by Soha Meza, Nurse Practitioner as directed. Dr. Jp MD I have performed a history and examination and MDM of this patient, discussed the same with the dictator, and agree with the dictator's assessment and plan as written ,documented as a scribe. Based on total visit time, I have performed more than 50% of the visit. Patient Condition at Discharge: Fair Plan - Discharge Summary New Discharge Prescriptions: New Potassium Chloride ER [K-Dur 20] 20 meq PO DAILY 30 Days #30 tab Metoclopramide HCl [Reglan] 5 mg PO BID 30 Days #60 tablet Continue Multivitamins, Thera [Multivitamin (formulary)] 1 tab PO DAILY Nitroglycerin Sl Tabs [Nitrostat] 0.4 mg SUBLINGUAL Q5M PRN PRN Reason: Chest Pain Aspirin EC [Ecotrin] 325 mg PO DAILY amLODIPine [Norvasc] 5 mg PO DAILY Pantoprazole [Protonix] 40 mg PO DAILY Discharge Medication List Aspirin EC [Ecotrin] 325 mg PO DAILY 08/26/21 [History] Multivitamins, Thera [Multivitamin (formulary)] 1 tab PO DAILY 08/26/21 [History] Nitroglycerin Sl Tabs [Nitrostat] 0.4 mg SUBLINGUAL Q5M PRN 08/26/21 [History] Pantoprazole [Protonix] 40 mg PO DAILY 08/26/21 [History] amLODIPine [Norvasc] 5 mg PO DAILY 08/26/21 [History] Metoclopramide HCl [Reglan] 5 mg PO BID 30 Days #60 tablet 09/06/21 [Rx] Potassium Chloride ER [K-Dur 20] 20 meq PO DAILY 30 Days #30 tab 09/06/21 [Rx] Follow up Appointment(s)/Referral(s): Kendra Garcia MD [Primary Care Provider] - 09/09/21 9:00 am (Meeting with ) Cl Henley DO [Doctor of Osteopathic Medicine] - 09/19/21 3:30 pm Cesar Medeiros MD [STAFF PHYSICIAN] - 09/13/21 3:00 pm Ambulatory/Diagnostic Orders: Basic Metabolic Panel [LAB.AMB] Time Frame: 4 Days, Location: None Selected Patient Instructions/Handouts: Level 2 National Dysphagia Diet (DC) Activity/Diet/Wound Care/Special Instructions: patient belongings down in security, slip in chart. Please return belongings at discharge. Activity Limited until follow-up Follow-up with primary care provider on discharge Follow-up with general surgery in one week Follow-up with orthopedics outpatient in 2-3 weeks Continue dysphagia 2 ground diet Recommend small frequent meals and chewing her food slowly until completely ground-up Recommend repeat labs in 2-3 days Recommend continue with ensure clear supplements 3 times a day with meals Discharge Disposition: HOME WITH HOME HEALTH SERVICES
== END 2021-09-06 16:08 | disposition home health service (06) | DRG 390 ==
LOC: EC 00:10 → 4SSUR 03:03
PROVIDERS: ADMIT Hospitalist; ATTEND Hospitalist
PROC: 0D9670Z Drainage of Stomach with Drainage Device, Via Natural or Artificial Opening (ICD-10-PCS; principal; 2021-08-26)
DX: K56.600 Partial intestinal obstruction, unspecified as to cause (principal); K56.7 Ileus, unspecified; E16.2 Hypoglycemia, unspecified; Z95.5 Presence of coronary angioplasty implant and graft; E78.5 Hyperlipidemia, unspecified; R26.9 Unspecified abnormalities of gait and mobility; E83.42 Hypomagnesemia; E87.6 Hypokalemia; G89.29 Other chronic pain; I11.0 Hypertensive heart disease with heart failure; I25.10 Atherosclerotic heart disease of native coronary artery without angina pectoris; I50.9 Heart failure, unspecified; Z86.16 Personal history of COVID-19; J45.909 Unspecified asthma, uncomplicated; K21.9 Gastro-esophageal reflux disease without esophagitis; M19.90 Unspecified osteoarthritis, unspecified site; Z79.82 Long term (current) use of aspirin; Z79.899 Other long term (current) drug therapy; Z82.49 Family history of ischemic heart disease and other diseases of the circulatory system; Z86.718 Personal history of other venous thrombosis and embolism; Z87.01 Personal history of pneumonia (recurrent); Z93.4 Other artificial openings of gastrointestinal tract status; Z88.0 Allergy status to penicillin; Z88.8 Allergy status to other drugs, medicaments and biological substances; Z86.19 Personal history of other infectious and parasitic diseases; Z87.440 Personal history of urinary (tract) infections; Z87.11 Personal history of peptic ulcer disease; Z91.048 Other nonmedicinal substance allergy status; Z87.19 Personal history of other diseases of the digestive system
CPT/HCPCS: 36415; 71045; 74019; 74177; 80048; 80053; 81003; 82150; 83605; 83690; 83735; 84100; 84132; 84484; 85025; 96361; 96374; 96375; 99285

== ENCOUNTER 2021-10-02 12:51 | Emergency (ER) | payer MEDICARE, OTHER ==
[2021-10-02 13:28] VITALS: RESP 16; TEMP 97.8
--- NOTE | 2021-10-02 14:21 | XR ---
EXAMINATION TYPE: XR KUB DATE OF EXAM: 10/02/2021 COMPARISON: 08/29/2021 HISTORY: Pain and constipation TECHNIQUE: Single view FINDINGS: There is no sign of intestinal obstruction or pneumoperitoneum. Fecal pattern is normal. Th ere is calcified uterine fibroid. There is significant arthritic change in the left hip joint. IMPRESSION: Nonacute abdomen. No adverse change. No significant constipation.
[2021-10-02] MEDS ORDERED: SODIUM CHLORIDE 0.9% 1,000 ML IV ONE (14:49)
[2021-10-02] MEDS ORDERED: ONDANSETRON 4 MG/2 ML VIAL IVP STA (14:49)
[2021-10-02] MEDS ORDERED: SODIUM CHLORIDE 0.9% 500 ML 500 ML IV ONE (14:49)
[2021-10-02 16:08] LABS: Basophils # (A) 0.1 k/uL (0-0.2); Basophils % (A) 1 %; Eosinophils # (A) 0.1 k/uL (0-0.7); Eosinophils % (A) 1 %; HCT 35.7 % (34.0-46.0); HGB 11.6 gm/dL (11.4-16.0); Lymphocytes # (A) 1.4 k/uL (1.0-4.8); Lymphocytes % (A) 18 %; MCH 28.2 pg (25.0-35.0); MCHC 32.4 g/dL (31.0-37.0); MCV 86.9 fL (80.0-100.0); Mean Platelet Volume 9.1; Monocytes # (A) 0.5 k/uL (0-1.0); Monocytes % (A) 6 %; Neutrophils # (A) 5.5 k/uL (1.3-7.7); Neutrophils % (A) 72 %; Platelet Count 262 k/uL (150-450); RBC 4.11 m/uL (3.80-5.40); RDW 14.8 % (11.5-15.5); WBC 7.7 k/uL (3.8-10.6)
[2021-10-02 16:10] LABS: Partial Thromboplastin Time 23.8 sec (22.0-30.0); Prothrombin Time 10.5 sec (9.0-12.0)
[2021-10-02 16:13] VITALS: BP 124/73; PULSE 66
[2021-10-02 16:13] LABS: ALT 13 U/L (4-34); AST 22 U/L (14-36); African American GFR (CKD) >90 (>60 ml/min/1.73 sqM); Albumin 3.5 g/dL (3.5-5.0); Alkaline Phosphatase 105 U/L (38-126); Amylase 169 U/L (30-110); Anion Gap 3 mmol/L; Blood Urea Nitrogen 9 mg/dL (7-17); Carbon Dioxide 26 mmol/L (22-30); Chloride 107 mmol/L (98-107); Glucose 92 mg/dL (74-99); Lipase 534 U/L (23-300); Non-African American GFR(CKD) >90 (>60 ml/min/1.73 sqM); Potassium 4.3 mmol/L (3.5-5.1); Sodium 136 mmol/L (137-145); Total Bilirubin 0.3 mg/dL (0.2-1.3); Total Protein 6.3 g/dL (6.3-8.2)
--- NOTE | 2021-10-02 16:17 | CT ---
EXAMINATION TYPE: CT abdomen pelvis wo con DATE OF EXAM: 10/02/2021 COMPARISON: 09/05/2021 And 10/26/2020 HISTORY: left side abd pain CT DLP: 296.9 mGycm Automated exposure control for dose reduction was used. Images obtained from the diaphragm to the floor the pelvis with no contrast. There is some interstitial infiltrate or atelectasis at the lung bases. Heart size is normal. No twin cardial effusion. There is coronary artery calcification. No pericardial effusion. No pleural effusio n. There is interposition of the hepatic flexure of the colon. Liver is intact. Gallbladder is intact. T he bile ducts are not dilated. Spleen appears normal. No evidence of pancreatic mass. There is no adrenal mass. Kidneys have normal size. There is 2 mm calculus lower pole left kidney. Th ere is no retroperitoneal adenopathy. Ureters are not dilated. Bladder distends smoothly. No inguinal hernia. No free fluid in the pelvis. There are calcified uterine fibroids. There are numerous sigmoi d diverticula. No diverticulitis. No mesenteric edema. There is previous gastric surgery. The lumbar vertebra show normal alignment. There is compression deformity at L1 and T12 unchanged. Ap pendix not seen. No sign of thickened appendix. No ascites or free air. No sign of a bowel obstructio n. IMPRESSION: There is some mild interstitial infiltrate and atelectasis at the lung bases without change. Colonic diverticulosis. No acute abnormality in the abdomen pelvis. Old fracture seen at T12 and L1 and S2 levels appears stable compared to 10/26/2020.
--- NOTE | 2021-10-02 16:21 | ED ---
Abdominal Pain HPI - General Chief Complaint: Abdominal Pain Stated Complaint: constipation Time Seen by Provider: 10/02/21 13:54 Source: patient, RN notes reviewed Mode of arrival: ambulatory Limitations: no limitations - History of Present Illness Initial Comments: 76-year-old female presents emergency Department chief complaint abdominal pain. Patient states that she's had some intermittent episodes she does admit that she's had a history of obstruction she is concerned she may or obstruction she felt constipated though she had normal bowel movement. Patient had an episode nausea vomiting but has resolved. No chest pain or shortness breath no cough or cold like symptoms no fevers or chills patient has no dysuria no hematuria - Related Data Home Medications Medication Instructions Recorded Confirmed Aspirin EC [Ecotrin] 325 mg PO DAILY 08/26/21 08/26/21 Multivitamins, Thera [Multivitamin 1 tab PO DAILY 08/26/21 08/26/21 (formulary)] Nitroglycerin Sl Tabs [Nitrostat] 0.4 mg SUBLINGUAL Q5M PRN 08/26/21 08/26/21 Pantoprazole [Protonix] 40 mg PO DAILY 08/26/21 08/26/21 amLODIPine [Norvasc] 5 mg PO DAILY 08/26/21 08/26/21 Previous Rx's Medication Instructions Recorded Metoclopramide HCl [Reglan] 5 mg PO BID 30 Days #60 tablet 09/06/21 Potassium Chloride ER [K-Dur 20] 20 meq PO DAILY 30 Days #30 tab 09/06/21 Ondansetron Odt [Zofran Odt] 4 mg PO Q8HR PRN #10 tab 10/02/21 Allergies Allergy/AdvReac Type Severity Reaction Status Date / Time adhesive Allergy Rash/Hives Verified 10/02/21 13:28 Penicillins Allergy Swelling Verified 10/02/21 13:28 atorvastatin AdvReac Abdominal Verified 10/02/21 13:28 Pain sertraline [From Zoloft] AdvReac Hallucinati Verified 10/02/21 13:28 ons Review of Systems ROS Statement: Those systems with pertinent positive or pertinent negative responses have been documented in the HPI. ROS Other: All systems not noted in ROS Statement are negative. Past Medical History Past Medical History: Asthma, Coronary Artery Disease (CAD), Chest Pain / Angina, Heart Failure, GERD/Reflux, Hyperlipidemia, Hypertension, Osteoarthritis (OA), Pneumonia, Respiratory Disorder Additional Past Medical History / Comment(s): Pt recently admitted to [facility] on 08/20/20 with chest pain/negative stress test, UTI with sepsis, hypomagnesemia, gait dysfunction, mild protein calorie malnutrition. Other hx: 07/2020 Covid pneumonia and has been on home oxygen since, bronchitis, hiatal hernia, stress incontinence, arthritis "all over", pt thinks possibly told she had RA, gastritis, UTIs, hypokalemia, bradycardia, sinus problems, skni grafts d/t [place]. History of Any Multi-Drug Resistant Organisms: VRE Date of last positivie culture/infection: 08/27/20 MDRO Source:: Urine Past Surgical History: Back Surgery, Heart Catheterization, Heart Catheteri zation With Stent Additional Past Surgical History / Comment(s): PCI with stents 2006, lower back surgery, skin grafts, EGD, colonoscopy, D&C/hysteroscopy. Past Anesthesia/Blood Transfusion Reactions: No Reported Reaction Additional Past Anesthesia/Blood Transfusion Reaction / Comment(s): Pt unsure if she has recieved blood ever. Date of Last Stent Placement:: 2006 Past Psychological History: No Psychological Hx Reported Smoking Status: Never smoker Past Alcohol Use History: None Reported Past Drug Use History: None Reported - Past Family History Father Family Medical History: No Reported History Additional Family Medical History / Comment(s): Pt states father in an accident years ago. Mother Family Medical History: Blood Disorder, Congestive Heart Failure (CHF) Additional Family Medical History / Comment(s): Mother around age 83yrs General Exam Limitations: no limitations General appearance: alert, in no apparent distress Head exam: Present: atraumatic, normocephalic, normal inspection Eye exam: Present: normal appearance, PERRL, EOMI. Absent: scleral icterus, conjunctival injection, periorbital swelling ENT exam: Present: normal exam, normal oropharynx, mucous membranes moist Neck exam: Present: normal inspection, full ROM. Absent: tenderness, meningismus, lymphadenopathy Respiratory exam: Present: normal lung sounds bilaterally. Absent: respiratory distress, wheezes, rales, rhonchi, stridor Cardiovascular Exam: Present: regular rate, normal rhythm, normal heart sounds. Absent: systolic murmur, diastolic murmur, rubs, gallop, clicks GI/Abdominal exam: Present: soft, tenderness (Minimal nonlocalized), normal bowel sounds. Absent: distended, guarding, rebound, rigid Back exam: Absent: CVA tenderness (R), CVA tenderness (L) Neurological exam: Present: alert Skin exam: Present: warm, dry, intact, normal color. Absent: rash Course Vital Signs 10/02/21 10/02/21 13:25 16:13 Temperature 97.8 F Pulse Rate 82 66 Respiratory 16 16 Rate Blood Pressure 129/77 124/73 O2 Sat by Pulse 97 95 Oximetry Medical Decision Making - Medical Decision Making 76-year-old female presented for several nausea vomiting syndrome obstruction. There is no evidence of obstruction patient states she feels greatly improved at this time. She has no pain currently over her abdomen. She did have mild renzo vated in pancreatic enzymes. Patient will clear liquid diet, increase fluids patient feels comfortable discharge, requesting discharge. - Lab Data Result diagrams: 10/02/21 15:49 10/02/21 15:49 Lab Results 10/02/21 10/02/21 10/02/21 Range/Units 15:49 15:49 15:49 WBC 7.7 (3.8-10.6) k/uL RBC 4.11 (3.80-5.40) m/uL Hgb 11.6 (11.4-16.0) gm/dL Hct 35.7 (34.0-46.0) % MCV 86.9 (80.0-100.0) fL MCH 28.2 (25.0-35.0) pg MCHC 32.4 (31.0-37.0) g/dL RDW 14.8 (11.5-15.5) % Plt Count 262 (150-450) k/uL MPV 9.1 Neutrophils % 72 % Lymphocytes % 18 % Monocytes % 6 % Eosinophils % 1 % Basophils % 1 % Neutrophils # 5.5 (1.3-7.7) k/uL Lymphocytes # 1.4 (1.0-4.8) k/uL Monocytes # 0.5 (0-1.0) k/uL Eosinophils # 0.1 (0-0.7) k/uL Basophils # 0.1 (0-0.2) k/uL PT 10.5 (9.0-12.0) sec INR 1.0 (<1.2) APTT 23.8 (22.0-30.0) sec Sodium (137-145) mmol/L Potassium (3.5-5.1) mmol/L Chloride (98-107) mmol/L Carbon Dioxide (22-30) mmol/L Anion Gap mmol/L BUN (7-17) mg/dL Creatinine (0.52-1.04) mg/dL Est GFR (CKD-EPI)AfAm (>60 ml/min/1.73 sqM) Est GFR (CKD-EPI)NonAf (>60 ml/min/1.73 sqM) Glucose (74-99) mg/dL Plasma Lactic Acid Nathanael (0.7-2.0) mmol/L Calcium (8.4-10.2) mg/dL Total Bilirubin (0.2-1.3) mg/dL AST (14-36) U/L ALT (4-34) U/L Alkaline Phosphatase (38-126) U/L Total Protein (6.3-8.2) g/dL Albumin (3.5-5.0) g/dL Amylase (30-110) U/L Lipase (23-300) U/L Urine Color Light Yellow Urine Appearance Clear (Clear) Urine pH 5.5 (5.0-8.0) Ur Specific [place] 1.007 (1.001-1.035) Urine Protein Negative (Negative) Urine Glucose (UA) Negative (Negative) Urine Ketones Negative (Negative) Urine Blood Negative (Negative) Urine Nitrite Negative (Negative) Urine Bilirubin Negative (Negative) Urine Urobilinogen <2.0 (<2.0) mg/dL Ur Leukocyte Esterase Negative (Negative) 10/02/21 10/02/21 Range/Units 15:49 15:49 WBC (3.8-10.6) k/uL RBC (3.80-5.40) m/uL Hgb (11.4-16.0) gm/dL Hct (34.0-46.0) % MCV (80.0-100.0) fL MCH (25.0-35.0) pg MCHC (31.0-37.0) g/dL RDW (11.5-15.5) % Plt Count (150-450) k/uL MPV Neutrophils % % Lymphocytes % % Monocytes % % Eosinophils % % Basophils % % Neutrophils # (1.3-7.7) k/uL Lymphocytes # (1.0-4.8) k/uL Monocytes # (0-1.0) k/uL Eosinophils # (0-0.7) k/uL Basophils # (0-0.2) k/uL PT (9.0-12.0) sec INR (<1.2) APTT (22.0-30.0) sec Sodium 136 L (137-145) mmol/L Potassium 4.3 (3.5-5.1) mmol/L Chloride 107 (98-107) mmol/L Carbon Dioxide 26 (22-30) mmol/L Anion Gap 3 mmol/L BUN 9 (7-17) mg/dL Creatinine 0.45 L (0.52-1.04) mg/dL Est GFR (CKD-EPI)AfAm >90 (>60 ml/min/1.73 sqM) Est GFR (CKD-EPI)NonAf >90 (>60 ml/min/1.73 sqM) Glucose 92 (74-99) mg/dL Plasma Lactic Acid Nathanael 0.6 L (0.7-2.0) mmol/L Calcium 9.0 (8.4-10.2) mg/dL Total Bilirubin 0.3 (0.2-1.3) mg/dL AST 22 (14-36) U/L ALT 13 (4-34) U/L Alkaline Phosphatase 105 (38-126) U/L Total Protein 6.3 (6.3-8.2) g/dL Albumin 3.5 (3.5-5.0) g/dL Amylase 169 H (30-110) U/L Lipase 534 H (23-300) U/L Urine Color Urine Appearance (Clear) Urine pH (5.0-8.0) Ur Specific [place] (1.001-1.035) Urine Protein (Negative) Urine Glucose (UA) (Negative) Urine Ketones (Negative) Urine Blood (Negative) Urine Nitrite (Negative) Urine Bilirubin (Negative) Urine Urobilinogen (<2.0) mg/dL Ur Leukocyte Esterase (Negative) Disposition Clinical Impression: Abdominal pain Disposition: HOME SELF-CARE Condition: Stable Instructions (If sedation given, give patient instructions): Abdominal Pain (ED) Additional Instructions: Please return to the Emergency Department if symptoms worsen or any other concerns. Prescriptions: Ondansetron Odt [Zofran Odt] 4 mg PO Q8HR PRN #10 tab PRN Reason: Nausea Is patient prescribed a controlled substance at d/c from ED?: No Referrals: Kendra Garcia MD [Primary Care Provider] - 1-2 days Time of Disposition: 17:45
[2021-10-02 17:39] LABS: Appearance,Urine Clear (Clear); Bilirubin,Urine Negative (Negative); Blood,Urine Negative (Negative); Color,Urine Light Yellow; Glucose,Urine (UA) Negative (Negative); Ketones,Urine Negative (Negative); Leukocyte Esterase,Urine Negative (Negative); Nitrite,Urine Negative (Negative); PH, Urine 5.5 (5.0-8.0); Protein,Urine Negative (Negative); Specific Gravity,Urine 1.007 (1.001-1.035); Urobilinogen,Urine <2.0 mg/dL (<2.0)
== END 2021-10-02 18:35 | disposition home or self-care (01) ==
LOC: EC 12:51
DX: R10.9 Unspecified abdominal pain (principal); J45.909 Unspecified asthma, uncomplicated; I11.0 Hypertensive heart disease with heart failure; K21.9 Gastro-esophageal reflux disease without esophagitis; E78.5 Hyperlipidemia, unspecified; Z79.1 Long term (current) use of non-steroidal anti-inflammatories (NSAID); I25.10 Atherosclerotic heart disease of native coronary artery without angina pectoris; Z79.83 Long term (current) use of bisphosphonates; Z88.0 Allergy status to penicillin; Z91.048 Other nonmedicinal substance allergy status; Z88.8 Allergy status to other drugs, medicaments and biological substances
CPT/HCPCS: 36415; 80053; 82150; 83605; 83690; 85025; 85610; 85730; 81003; 74018; 74176; 99284; 96374; 96361; J2405

== ENCOUNTER 2021-11-07 00:04 | Observation (INO) | payer MEDICARE, OTHER ==
[2021-11-07] MEDS ORDERED: PANTOPRAZOLE 40 MG/10 ML VIAL IVP STA (00:15)
[2021-11-07] MEDS ORDERED: ONDANSETRON 4 MG/2 ML VIAL IVP STA (00:15)
[2021-11-07] MEDS ORDERED: SODIUM CHLORIDE 0.9% 1,000 ML IV STA (00:15)
--- NOTE | 2021-11-07 00:16 | ED ---
Nausea/Vomiting/Diarrhea HPI - General Chief complaint: Nausea/Vomiting/Diarrhea Stated complaint: Nausea,vomiting Time Seen by Provider: 11/07/21 00:15 Source: patient, EMS, RN notes reviewed, old records reviewed Mode of arrival: EMS Limitations: no limitations - History of Present Illness Initial comments: This is a 76-year-old female to the ER. Patient's presents today for evaluation of nausea vomiting and earache sore throat not feeling well. Patient's sister called EMS secondary thing patient may have coronavirus. Per the sister patient's whole family has coronavirus. MD complaint: nausea, vomiting, abdominal pain -: days(s) Description of Vomiting: food contents Description of Diarrhea: water Associated Abdominal Pain: Yes Location: diffuse Severity: mild Severity scale (1-10): 1 Quality: cramping, aching Consistency: constant Improves with: none Worsens with: none Associated Symptoms: loss of appetite, malaise, nausea/vomiting - Related Data Home Medications Medication Instructions Recorded Confirmed Aspirin EC [Ecotrin] 325 mg PO DAILY 08/26/21 08/26/21 Multivitamins, Thera [Multivitamin 1 tab PO DAILY 08/26/21 08/26/21 (formulary)] Nitroglycerin Sl Tabs [Nitrostat] 0.4 mg SUBLINGUAL Q5M PRN 08/26/21 08/26/21 Pantoprazole [Protonix] 40 mg PO DAILY 08/26/21 08/26/21 amLODIPine [Norvasc] 5 mg PO DAILY 08/26/21 08/26/21 Previous Rx's Medication Instructions Recorded Metoclopramide HCl [Reglan] 5 mg PO BID 30 Days #60 tablet 09/06/21 Potassium Chloride ER [K-Dur 20] 20 meq PO DAILY 30 Days #30 tab 09/06/21 Ondansetron Odt [Zofran Odt] 4 mg PO Q8HR PRN #10 tab 10/02/21 Allergies Allergy/AdvReac Type Severity Reaction Status Date / Time adhesive Allergy Rash/Hives Verified 10/02/21 13:28 Penicillins Allergy Swelling Verified 10/02/21 13:28 atorvastatin AdvReac Abdominal Verified 10/02/21 13:28 Pain sertraline [From Zoloft] AdvReac Hallucinati Verified 10/02/21 13:28 ons Review of Systems ROS Statement: Those systems with pertinent positive or pertinent negative responses have been documented in the HPI. ROS Other: All systems not noted in ROS Statement are negative. Past Medical History Past Medical History: Asthma, Coronary Artery Disease (CAD), Chest Pain / Angina, Heart Failure, GERD/Reflux, Hyperlipidemia, Hypertension, Osteoarthritis (OA), Pneumonia, Respiratory Disorder Additional Past Medical History / Comment(s): Pt recently admitted to [facility] on 08/20/20 with chest pain/negative stress test, UTI with sepsis, hypomagnesemia, gait dysfunction, mild protein calorie malnutrition. Other hx: 07/2020 Covid pneumonia and has been on home oxygen since, bronchitis, hiatal hernia, stress incontinence, arthritis "all over", pt thinks possibly told she had RA, gastritis, UTIs, hypokalemia, bradycardia, sinus problems, skni grafts d/t [place]. History of Any Multi-Drug Resistant Organisms: VRE Date of last positivie culture/infection: 08/27/20 MDRO Source:: Urine Past Surgical History: Back Surgery, Heart Catheterization, Heart Catheterization With Stent Additional Past Surgical History / Comment(s): PCI with stents 2006, lower back surgery, skin grafts, EGD, colonoscopy, D&C/hysteroscopy. Past Anesthesia/Blood Transfusion Reactions: No Reported Reaction Additional Past Anesthesia/Blood Transfusion Reaction / Comment(s): Pt unsure if she has recieved blood ever. Date of Last Stent Placement:: 2006 Past Psychological History: No Psychological Hx Reported Smoking Status: Never smoker Past Alcohol Use History: None Reported Past Drug Use History: None Reported - Past Family History Father Family Medical History: No Reported History Additional Family Medical History / Comment(s): Pt states father in an acc ident years ago. Mother Family Medical History: Blood Disorder, Congestive Heart Failure (CHF) Additional Family Medical History / Comment(s): Mother around age 83yrs General Exam General appearance: alert, in no apparent distress Head exam: Present: atraumatic, normocephalic, normal inspection Eye exam: Present: normal appearance, PERRL, EOMI. Absent: scleral icterus, conjunctival injection, periorbital swelling ENT exam: Present: normal exam, mucous membranes moist Neck exam: Present: normal inspection. Absent: tenderness, meningismus, lymphadenopathy Respiratory exam: Present: normal lung sounds bilaterally. Absent: respiratory distress, wheezes, rales, rhonchi, stridor Cardiovascular Exam: Present: regular rate, normal rhythm, normal heart sounds. Absent: systolic murmur, diastolic murmur, rubs, gallop, clicks GI/Abdominal exam: Present: soft, normal bowel sounds. Absent: distended, tenderness, guarding, rebound, rigid Extremities exam: Present: normal inspection, full ROM, normal capillary refill. Absent: tenderness, pedal edema, joint swelling, calf tenderness Back exam: Present: normal inspection Neurological exam: Present: alert, oriented X3, CN II-XII intact Psychiatric exam: Present: normal affect, normal mood Skin exam: Present: warm, dry, intact, normal color. Absent: rash Course Vital Signs 11/07/21 00:11 Temperature 99.3 F Pulse Rate 84 Respiratory 19 Rate Blood Pressure 127/80 O2 Sat by Pulse 96 Oximetry - Reevaluation(s) Reevaluation #1: 11/07/21 00:38 Medical record is reviewed Medical Decision Making - Lab Data Result diagrams: 11/07/21 00:23 11/07/21 00:23 Lab Results 11/07/21 11/07/21 11/07/21 Range/Units 00:15 00:23 00:23 WBC 7.3 (3.8-10.6) k/uL RBC 4.33 (3.80-5.40) m/uL Hgb 12.0 (11.4-16.0) gm/dL Hct 37.0 (34.0-46.0) % MCV 85.5 (80.0-100.0) fL MCH 27.8 (25.0-35.0) pg MCHC 32.5 (31.0-37.0) g/dL RDW 14.1 (11.5-15.5) % Plt Count 270 (150-450) k/uL MPV 8.6 Neutrophils % 69 % Lymphocytes % 21 % Monocytes % 7 % Eosinophils % 1 % Basophils % 0 % Neutrophils # 5.0 (1.3-7.7) k/uL Lymphocytes # 1.5 (1.0-4.8) k/uL Monocytes # 0.5 (0-1.0) k/uL Eosinophils # 0.1 (0-0.7) k/uL Basophils # 0.0 (0-0.2) k/uL Sodium 137 (137-145) mmol/L Potassium 3.2 L (3.5-5.1) mmol/L Chloride 108 H (98-107) mmol/L Carbon Dioxide 22 (22-30) mmol/L Anion Gap 7 mmol/L BUN 20 H (7-17) mg/dL Creatinine 0.60 (0.52-1.04) mg/dL Est GFR (CKD-EPI)AfAm >90 (>60 ml/min/1.73 sqM) Est GFR (CKD-EPI)NonAf 88 (>60 ml/min/1.73 sqM) Glucose 106 H (74-99) mg/dL Plasma Lactic Acid Nathanael (0.7-2.0) mmol/L Calcium 8.8 (8.4-10.2) mg/dL Total Bilirubin 0.5 (0.2-1.3) mg/dL AST 20 (14-36) U/L ALT 11 (4-34) U/L Alkaline Phosphatase 87 (38-126) U/L Troponin I (0.000-0.034) ng/mL Total Protein 6.2 L (6.3-8.2) g/dL Albumin 3.5 (3.5-5.0) g/dL Amylase 78 (30-110) U/L Lipase 36 (23-300) U/L Urine Color Urine Appearance (Clear) Urine pH (5.0-8.0) Ur Specific [place] (1.001-1.035) Urine Protein (Negative) Urine Glucose (UA) (Negative) Urine Ketones (Negative) Urine Blood (Negative) Urine Nitrite (Negative) Urine Bilirubin (Negative) Urine Urobilinogen (<2.0) mg/dL Ur Leukocyte Esterase (Negative) Urine RBC (0-5) /hpf Urine WBC (0-5) /hpf Ur Squamous Epith Cells (0-4) /hpf Calcium Oxalate Crystal (None) /hpf Urine Mucus (None) /hpf Coronavirus (PCR) Not Detected (Not Detectd) 11/07/21 11/07/21 11/07/21 Range/Units 00:23 00:23 01:31 WBC (3.8-10.6) k/uL RBC (3.80-5.40) m/uL Hgb (11.4-16.0) gm/dL Hct (34.0-46.0) % MCV (80.0-100.0) fL MCH (25.0-35.0) pg MCHC (31.0-37.0) g/dL RDW (11.5-15.5) % Plt Count (150-450) k/uL MPV Neutrophils % % Lymphocytes % % Monocytes % % Eosinophils % % Basophils % % Neutrophils # (1.3-7.7) k/uL Lymphocytes # (1.0-4.8) k/uL Monocytes # (0-1.0) k/uL Eosinophils # (0-0.7) k/uL Basophils # (0-0.2) k/uL Sodium (137-145) mmol/L Potassium (3.5-5.1) mmol/L Chloride (98-107) mmol/L Carbon Dioxide (22-30) mmol/L Anion Gap mmol/L BUN (7-17) mg/dL Creatinine (0.52-1.04) mg/dL Est GFR (CKD-EPI)AfAm (>60 ml/min/1.73 sqM) Est GFR (CKD-EPI)NonAf (>60 ml/min/1.73 sqM) Glucose (74-99) mg/dL Plasma Lactic Acid Nathanael 0.9 (0.7-2.0) mmol/L Calcium (8.4-10.2) mg/dL Total Bilirubin (0.2-1.3) mg/dL AST (14-36) U/L ALT (4-34) U/L Alkaline Phosphatase (38-126) U/L Troponin I <0.012 (0.000-0.034) ng/mL Total Protein (6.3-8.2) g/dL Albumin (3.5-5.0) g/dL Amylase (30-110) U/L Lipase (23-300) U/L Urine Color Yellow Urine Appearance Cloudy H (Clear) Urine pH 6.5 (5.0-8.0) Ur Specific [place] 1.017 (1.001-1.035) Urine Protein 1+ H (Negative) Urine Glucose (UA) Negative (Negative) Urine Ketones 2+ H (Negative) Urine Blood Small H (Negative) Urine Nitrite Negative (Negative) Urine Bilirubin Negative (Negative) Urine Urobilinogen 2.0 (<2.0) mg/dL Ur Leukocyte Esterase Large H (Negative) Urine RBC 3 (0-5) /hpf Urine WBC 37 H (0-5) /hpf Ur Squamous Epith Cells 12 H (0-4) /hpf Calcium Oxalate Crystal Rare H (None) /hpf Urine Mucus Rare H (None) /hpf Coronavirus (PCR) (Not Detectd) Disposition Clinical Impression: Vomiting, UTI (urinary tract infection) Disposition: ADMITTED IP TO THIS HOSP Condition: Good Is patient prescribed a controlled substance at d/c from ED?: No Referrals: Kendra Garcia MD [Primary Care Provider] - 1-2 days
[2021-11-07 00:31] LABS: Basophils % (A) 0 %; Eosinophils # (A) 0.1 k/uL (0-0.7); Eosinophils % (A) 1 %; Lymphocytes # (A) 1.5 k/uL (1.0-4.8); Lymphocytes % (A) 21 %; MCH 27.8 pg (25.0-35.0); MCHC 32.5 g/dL (31.0-37.0); MCV 85.5 fL (80.0-100.0); Mean Platelet Volume 8.6; Monocytes # (A) 0.5 k/uL (0-1.0); Monocytes % (A) 7 %; Neutrophils % (A) 69 %; Platelet Count 270 k/uL (150-450); RBC 4.33 m/uL (3.80-5.40); RDW 14.1 % (11.5-15.5); WBC 7.3 k/uL (3.8-10.6)
[2021-11-07 00:40] LABS: ALT 11 U/L (4-34); AST 20 U/L (14-36); African American GFR (CKD) >90 (>60 ml/min/1.73 sqM); Albumin 3.5 g/dL (3.5-5.0); Alkaline Phosphatase 87 U/L (38-126); Amylase 78 U/L (30-110); Anion Gap 7 mmol/L; Blood Urea Nitrogen 20 mg/dL (7-17); Calcium 8.8 mg/dL (8.4-10.2); Carbon Dioxide 22 mmol/L (22-30); Chloride 108 mmol/L (98-107); Glucose 106 mg/dL (74-99); Lipase 36 U/L (23-300); Non-African American GFR(CKD) 88 (>60 ml/min/1.73 sqM); Potassium 3.2 mmol/L (3.5-5.1); Sodium 137 mmol/L (137-145); Total Bilirubin 0.5 mg/dL (0.2-1.3); Total Protein 6.2 g/dL (6.3-8.2)
--- NOTE | 2021-11-07 01:23 | XR ---
EXAMINATION TYPE: XR chest 1V portable DATE OF EXAM: 11/07/2021 COMPARISON: 08/26/2021 HISTORY: Cough TECHNIQUE: Single view FINDINGS: There is elevated right diaphragm. There is interposition of the hepatic flexure of the col on. There is some atelectasis right lung base. No heart failure seen. Heart size is normal. IMPRESSION: There is some chronic elevation of the right diaphragm and right basilar atelectasis. No significant change compared to old exam. Normal heart.
[2021-11-07] MEDS ORDERED: POTASSIUM BICARBONATE/CIT AC 20 MEQ TABLET.EFF PO ONE (01:38)
[2021-11-07 02:36] LABS: Appearance,Urine Cloudy (Clear); Bilirubin,Urine Negative (Negative); Blood,Urine Small (Negative); Calcium Oxalate Crystals,Urine Rare /hpf; Color,Urine Yellow; Glucose,Urine (UA) Negative (Negative); Ketones,Urine 2+ (Negative); Leukocyte Esterase,Urine Large (Negative); Mucus,Urine Rare /hpf; Nitrite,Urine Negative (Negative); PH, Urine 6.5 (5.0-8.0); Protein,Urine 1+ (Negative); RBC,Urine 3 /hpf (0-5); Specific Gravity,Urine 1.017 (1.001-1.035); Squamous Epithelial Cell,Urine 12 /hpf (0-4); WBC,Urine 37 /hpf (0-5)
[2021-11-07] MEDS ORDERED: ONDANSETRON 4 MG/2 ML VIAL IVP PRN (03:03)
[2021-11-07] MEDS ORDERED: NALOXONE 0.4 MG/ML 1 ML VIAL IV PRN (03:03)
[2021-11-07] MEDS ORDERED: MORPHINE SULFATE 4 MG/ML SYRINGE IV PRN (03:03)
[2021-11-07] MEDS: SODIUM CHLORIDE 0.9% 1,000 ML IV SCH ×3 (03:49→19:35)
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
--- NOTE | 2021-11-07 09:30 | P.PN ---
Subjective Progress Note Date: 11/07/21 Hospital course: Patient is a very pleasant 68-year-old female with a past medical history of hypertension, hyperlipidemia, anxiety and coronary artery disease. She presented to the emergency room with complaints of nausea, vomiting, and cough. Patient reported that her entire family is currently sick with COVID and that over the past 2 days, she had been experiencing nausea, vomiting, diarrhea. Patient also reported having a nonproductive cough without fever or chills. She stated she has been having poor oral intake due to her symptoms. Denied chest discomfort or shortness of breath. Reported diffuse achy abdominal discomfort due to vomiting. Denies hematemesis or coffee-ground emesis. Chest x-ray in the emergency room was unremarkable with laboratory evaluation remarkable for potassium of 3.2, UA consistent with UTI, and negative for COVID PCR. Physical exam: Vital signs reviewed and stable. General: Nontoxic, no distress and appears stated age. Derm: Skin warm and dry, normal coloration for ethnicity. Head: Atraumatic, normocephalic and symmetric. Eyes: EOMs intact, no lid lag, and anicteric sclera Mouth: no lip lesions, mucus membranes moist Cardiovascular: regular rate and rhythm with normal S1S2, no murmur, positive posterior tibial pulses bilaterally, and cap refill < 2 seconds. Lungs: Respirations even, regular, and unlabored on room air. Lungs CTA bilaterally, no rhonchi, no rales, no wheezing, and no accessory muscle usage. Abdominal: soft, nontender to palpation, no guarding, no appreciable organomegaly Ext: ROM intact. No gross muscle atrophy, no edema, no contractures Neuro: Speech clear, face symmetrical and CN II-XII grossly intact with no noted focal neuro deficits Psych: Alert and oriented to person, place, time, and situation. Appropriate and pleasant affect. Assessment and Plan of Care: Intractable nausea, vomiting, diarrhea, unclear etiology possibly secondary to current infection with UTI -Covid PCR negative -CBC unremarkable. CMP revealing hypokalemia otherwise unremarkable. -X-ray negative for acute cardiopulmonary process. -Symptomatic management with antiemetics, normal saline UTI -Continue IV antibiotics with cefepime. -Follow up culture and sensitivity results. -Bladder management, monitor for postvoid residuals. Hypokalemia -Replaced, we will continue to monitor with repeat a.m. labs Hypertension -Monitor vital signs and Continue daily medication regimen with losartan Anxiety -Continue daily medication regimen with Zoloft CODE STATUS: Full Code DVT prophylaxis: Heparin Discussed with: Patient and RN Anticipated discharge date: Tomorrow morning Anticipated discharge place: Home A total of 33 minutes was spent on the care of this complex patient more than 50% of the time was spent in counseling and care coordination. I reviewed the documentation as provided by the JOSE above, who is the original author of this note. I agree with the documented assessment and plan, with the following changes: none Objective - Vital Signs Vital signs: Vital Signs Temp 98.6 F 11/07/21 05:55 Pulse 67 11/07/21 05:55 Resp 15 11/07/21 05:55 BP 129/75 11/07/21 05:55 Pulse Ox 95 11/07/21 05:55 FiO2 Intake & Output 11/06/21 11/07/21 11/07/21 18:59 06:59 18:59 Weight 52.163 kg Other: Voiding Method Bedside Commode # Voids 1 - Labs CBC & Chem 7: 11/08/21 13:58 11/08/21 13:58 Labs: Abnormal Lab Results - Last 24 Hours (Table) 11/07/21 11/07/21 Range/Units 00:23 01:31 Potassium 3.2 L (3.5-5.1) mmol/L Chloride 108 H (98-107) mmol/L BUN 20 H (7-17) mg/dL Glucose 106 H (74-99) mg/dL Total Protein 6.2 L (6.3-8.2) g/dL Urine Appearance Cloudy H (Clear) Urine Protein 1+ H (Negative) Urine Ketones 2+ H (Negative) Urine Blood Small H (Negative) Ur Leukocyte Esterase Large H (Negative) Urine WBC 37 H (0-5) /hpf Ur Squamous Epith Cells 12 H (0-4) /hpf Calcium Oxalate Crystal Rare H (None) /hpf Urine Mucus Rare H (None) /hpf
[2021-11-07] MEDS: OXYBUTYNIN CHLORIDE 5 MG TAB PO SCH (22:35)
[2021-11-08] MEDS: HEPARIN SODIUM,PORCINE/PF 5,000 UNIT/0.5 ML SYRINGE SQ SCH ×4 (00:15→23:34)
[2021-11-08] MEDS: SODIUM CHLORIDE 0.9% 1,000 ML IV SCH ×2 (03:55→10:05)
[2021-11-08] MEDS: SERTRALINE 50 MG TAB PO SCH (07:51)
[2021-11-08] MEDS: ASPIRIN 81 MG PO SCH (07:51)
[2021-11-08] MEDS: LOSARTAN 25 MG TAB PO SCH (07:51)
[2021-11-08] MEDS: PANTOPRAZOLE 40 MG TABLET PO SCH (07:51)
[2021-11-08] MEDS: FOLIC ACID 1 MG TAB PO SCH (07:51)
[2021-11-08] MEDS: OXYBUTYNIN CHLORIDE 5 MG TAB PO SCH ×3 (07:52→21:28)
[2021-11-08 08:51] LABS: Basophils # (A) 0.03 X 10*3/uL (0.00-0.10); Basophils % (A) 0.5 %; Eosinophils # (A) 0.07 X 10*3/uL (0.04-0.35); Eosinophils % (A) 1.2 %; HCT 34.8 % (37.2-46.3); HGB 10.4 g/dL (12.0-15.0); Immature Grans, Automated 0.7 %; Lymphocytes # (A) 1.15 X 10*3/uL (0.90-5.00); Lymphocytes % (A) 19.5 %; MCH 26.3 pg (27.0-32.0); MCHC 29.9 g/dL (32.0-37.0); MCV 88.1 fL (80.0-97.0); Mean Platelet Volume 11.8 fL (9.5-12.2); Monocytes # (A) 0.66 X 10*3/uL (0.20-1.00); Monocytes % (A) 11.2 %; NRBC Per 100 WBC 0 /100 WBCS (0.0-0.0); Neutrophils # (A) 3.94 X 10*3/uL (1.80-7.70); Neutrophils % (A) 66.9 %; Platelet Count 222 X 10*3/uL (140-440); RBC 3.95 X 10*6/uL (4.10-5.20); RDW 14.6 % (11.5-14.5); WBC 5.89 X 10*3/uL (4.50-10.00)
[2021-11-08 09:07] LABS: ALT 8 U/L (8-44); AST 14 U/L (13-35); African American GFR (CKD) 107.4 (60.0-200.0); Albumin/Globulin Ratio 1.67 (1.60-3.17); Alkaline Phosphatase 84 U/L (41-126); Blood Urea Nitrogen 8.8 mg/dL (9.0-27.0); Calcium 8.1 mg/dL (8.7-10.3); Carbon Dioxide 27.1 mmol/L (20.0-27.5); Chloride 108 mmol/L (96-109); Globulin 1.8 g/dL (1.6-3.3); Glucose 70 mg/dL (70-110); Magnesium 1.6 mg/dL (1.5-2.4); Non-African American GFR(CKD) 92.7 (60.0-200.0); Phosphorus 2.9 mg/dL (2.4-5.1); Potassium 3.9 mmol/L (3.5-5.5); Sodium 141 mmol/L (135-145); Total Bilirubin <0.15 mg/dL (0.30-1.20); Total Protein 4.8 g/dL (6.2-8.2)
--- NOTE | 2021-11-08 11:49 | P.DS ---
Providers Date of admission: 11/07/21 03:03 Expected date of discharge: 11/08/21 Attending physician: Tracey Lombardi MD Primary care physician: Radha Gardner [facility] Hospital Course: Discharge Diagnosis: [] Hospital Course: Patient is a very pleasant 68-year-old female with a past medical history of hypertension, hyperlipidemia, anxiety and coronary artery disease. She presented to the emergency room with complaints of nausea, vomiting, and cough. Patient reported that her entire family is currently sick with COVID and that over the past 2 days, she had been experiencing nausea, vomiting, diarrhea. Patient also reported having a nonproductive cough without fever or chills. She stated she has been having poor oral intake due to her symptoms. Denied chest discomfort or shortness of breath. Reported diffuse achy abdominal discomfort due to vomiting. Denies hematemesis or coffee-ground emesis. Chest x-ray in the emergency room was unremarkable with laboratory evaluation remarkable for potassium of 3.2, UA consistent with UTI, and negative for COVID PCR. Physical exam: Vital signs reviewed and stable. General: Nontoxic, no distress and appears stated age. Derm: Skin warm and dry, normal coloration for ethnicity. Head: Atraumatic, normocephalic and symmetric. Eyes: EOMs intact, no lid lag, and anicteric sclera Mouth: no lip lesions, mucus membranes moist Cardiovascular: regular rate and rhythm with normal S1S2, no murmur, positive posterior tibial pulses bilaterally, and cap refill < 2 seconds. Lungs: Respirations even, regular, and unlabored on room air. Lungs CTA bilaterally, no rhonchi, no rales, no wheezing, and no accessory muscle usage. Abdominal: soft, nontender to palpation, no guarding, no appreciable organomeg neno Ext: ROM intact. No gross muscle atrophy, no edema, no contractures Neuro: Speech clear, face symmetrical and CN II-XII grossly intact with no noted focal neuro deficits Psych: Alert and oriented to person, place, time, and situation. Appropriate and pleasant affect. Assessment and Plan of Care: Intractable nausea, vomiting, diarrhea, unclear etiology possibly secondary to current infection with UTI -Covid PCR negative -CBC unremarkable. CMP revealing hypokalemia otherwise unremarkable. -X-ray negative for acute cardiopulmonary process. -Symptomatic management with antiemetics, normal saline UTI -Continue IV antibiotics with cefepime. -Follow up culture and sensitivity results. -Bladder management, monitor for postvoid residuals. Hypokalemia -Replaced, we will continue to monitor with repeat a.m. labs Hypertension -Monitor vital signs and Continue daily medication regimen with losartan Anxiety -Continue daily medication regimen with Zoloft A total of [ ] minutes of time were spent preparing this complex discharge summary. Pt was discharged on [ ] at [ ] Patient Condition at Discharge: Good Plan - Discharge Summary Discharge Rx Participant: Yes New Discharge Prescriptions: Continue Multivitamins, Thera [Multivitamin (formulary)] 1 tab PO DIRECTED Oxybutynin Chloride [Ditropan] 5 mg PO DIRECTED PRN PRN Reason: BLADDER SPASMS Aspirin EC [Ecotrin Low Dose] 81 mg PO DIRECTED Ibuprofen [Motrin] 600 mg PO Q12H PRN PRN Reason: Pain Pantoprazole [Protonix] 40 mg PO DIRECTED Potassium Chloride ER [K-Dur 20] 20 meq PO DAILY 30 Days #30 tab Metoclopramide HCl [Reglan] 5 mg PO BID 30 Days #60 tablet Vitamin B Complex 1 cap PO DIRECTED Losartan [Cozaar] 25 mg PO DIRECTED Folic Acid 1 mg PO DIRECTED Sertraline [Zoloft] 50 mg PO DIRECTED Discharge Medication List Multivitamins, Thera [Multivitamin (formulary)] 1 tab PO DIRECTED 08/26/21 [History] Pantoprazole [Protonix] 40 mg PO DIRECTED 08/26/21 [History] Metoclopramide HCl [Reglan] 5 mg PO BID 30 Days #60 tablet 09/06/21 [Rx] Potassium Chloride ER [K-Dur 20] 20 meq PO DAILY 30 Days #30 tab 09/06/21 [Rx] Aspirin EC [Ecotrin Low Dose] 81 mg PO DIRECTED 11/07/21 [History] Folic Acid 1 mg PO DIRECTED 11/07/21 [History] Ibuprofen [Motrin] 600 mg PO Q12H PRN 11/07/21 [History] Losartan [Cozaar] 25 mg PO DIRECTED 11/07/21 [History] Oxybutynin Chloride [Ditropan] 5 mg PO DIRECTED PRN 11/07/21 [History] Sertraline [Zoloft] 50 mg PO DIRECTED 11/07/21 [History] Vitamin B Complex 1 cap PO DIRECTED 11/07/21 [History] Follow up Appointment(s)/Referral(s): Kendra Garcia MD [Primary Care Provider] - 1-2 days Activity/Diet/Wound Care/Special Instructions: Activity: As tolerated. Take breaks as needed. Diet: Heart healthy and carb consistent diet. Avoid salts, or foods with hidden salts such as canned or boxed foods and frozen dinners. Extra salt makes your heart work harder and traps the fluid in your body for longer. Special Instructions: Take all of your medications as directed and remember to keep all of your doctor's appointments and follow-up as needed. Thank you for allowing us to participate in your care, it was truly a pleasure having you for our patient!!! Discharge Disposition: HOME SELF-CARE
[2021-11-08 14:27] LABS: Basophils % (A) 1 %; Eosinophils % (A) 1 %; HCT 38.8 % (34.0-46.0); HGB 12.3 gm/dL (11.4-16.0); Lymphocytes # (A) 0.9 k/uL (1.0-4.8); Lymphocytes % (A) 16 %; MCH 27.8 pg (25.0-35.0); MCHC 31.6 g/dL (31.0-37.0); Mean Platelet Volume 9.1; Monocytes # (A) 0.3 k/uL (0-1.0); Monocytes % (A) 6 %; Neutrophils # (A) 4.3 k/uL (1.3-7.7); Neutrophils % (A) 76 %; Platelet Count 256 k/uL (150-450); RDW 14.2 % (11.5-15.5); WBC 5.7 k/uL (3.8-10.6)
[2021-11-08] MEDS: ACETAMINOPHEN TAB 325 MG TAB PO PRN (14:30)
[2021-11-08 14:39] LABS: ALT 12 U/L (4-34); AST 22 U/L (14-36); African American GFR (CKD) >90 (>60 ml/min/1.73 sqM); Albumin 3.4 g/dL (3.5-5.0); Albumin/Globulin Ratio 1.3; Alkaline Phosphatase 111 U/L (38-126); Anion Gap 2 mmol/L; Blood Urea Nitrogen 11 mg/dL (7-17); Calcium 8.4 mg/dL (8.4-10.2); Carbon Dioxide 28 mmol/L (22-30); Chloride 107 mmol/L (98-107); Globulin 2.6 g/dL; Glucose 116 mg/dL (74-99); Non-African American GFR(CKD) >90 (>60 ml/min/1.73 sqM); Potassium 4.2 mmol/L (3.5-5.1); Sodium 137 mmol/L (137-145); Total Bilirubin 0.1 mg/dL (0.2-1.3)
--- NOTE | 2021-11-08 15:02 | CT ---
EXAMINATION TYPE: CT abdomen pelvis wo con CT DLP: 444 mGycm, Automated exposure control for dose reduction was used. DATE OF EXAM: 11/08/2021 2:47 PM COMPARISON: CT abdomen pelvis most recent from 10/02/2021 CLINICAL INDICATION:Female, 76 years old with history of abdominal pain; UTI, weakness, N/V TECHNIQUE: Axial CT of the abdomen and pelvis. Sagittal and coronal reformats were created on a [employer] workstation. Contrast used: None Oral contrast used: without Oral Contrast FINDINGS: LOWER CHEST: There is an elevated right diaphragm with bowel and interposed between the diaphragm and liver. Unchanged atelectasis changes within the lower lungs. ABDOMEN LIVER: Unremarkable GALLBLADDER AND BILE DUCTS: Layering increased densities within the lumen consistent with gallstones are present. PANCREAS: Unremarkable. SPLEEN: Unremarkable. ADRENAL GLANDS: Unremarkable. KIDNEYS AND URETERS: No evidence of hydronephrosis or renal calculus. PELVIS BLADDER: Urinary bladder is distended without evidence for wall thickening. REPRODUCTIVE: Unremarkable. ABDOMEN & PELVIS STOMACH AND BOWEL: Postsurgical changes to the bowel. Scattered clonic diverticula are present. No ev idence of bowel obstruction. PERITONEUM: No evidence of pneumoperitoneum or free fluid. VASCULATURE: No evidence of aortic aneurysm. MUSCULOSKELETAL: No acute osseous abnormalities, multilevel disc degeneration changes are seen throug hout the spine. Compression deformities throughout the spine are unchanged from prior. LYMPH NODES: No gross evidence for lymphadenopathy. SOFT TISSUE/ABDOMINAL WALL: Diastases of the rectus abdominis muscle superiorly. IMPRESSION: 1. Postsurgical changes of the abdomen without definitive evidence for acute process. 2. Elevated right diaphragm with bowel and post between the diaphragm and the liver. 3. Cholelithiasis. 4. Colonic diverticulosis.
[2021-11-08] MEDS ORDERED: ALPRAZolam 0.25 MG TAB PO PRN (15:54)
--- NOTE | 2021-11-08 16:15 | P.PN ---
Subjective Progress Note Date: 11/08/21 Hospital course: Patient is a very pleasant 68-year-old female with a past medical history of hypertension, hyperlipidemia, anxiety and coronary artery disease. She presented to the emergency room with complaints of nausea, vomiting, and cough. Patient reported that her entire family is currently sick with COVID and that over the past 2 days, she had been experiencing nausea, vomiting, diarrhea. Patient also reported having a nonproductive cough without fever or chills. She stated she has been having poor oral intake due to her symptoms. Denied chest discomfort or shortness of breath. Reported diffuse achy abdominal discomfort due to vomiting. Denies hematemesis or coffee-ground emesis. Chest x-ray in the emergency room was unremarkable with laboratory evaluation remarkable for potassium of 3.2, UA consistent with UTI, and negative for COVID PCR. Patient admitted under our services. Patient's urine culture negative ruling out a UTI and Rocephin discontinued at this time. CT abdomen and pelvis revealing cholelithiasis and elevated right diaphragm with bowel between the liver and diaphragm. Patient continues to report significant abdominal pain. Discharge order canceled. Patient admitted to inpatient for symptomatic cholestasis and consult placed to Gen. surgery for evaluation. Physical exam: Patient seen and fully evaluated at bedside this morning. Patient's urine culture negative ruling out a UTI and Rocephin discontinued at this time. Medically patient stable for discharge. Initial plan was for discharge, however patient again developed abdominal pain and nausea. Order placed for CBC, CMP and CT abdomen and pelvis. CBC and CMP showing no significant abnormalities. CT abdomen and pelvis revealing cholelithiasis and elevated right diaphragm with bowel between the liver and diaphragm. Patient continues to report significant abdominal pain. Discharge order canceled. Patient admitted to inpatient for symptomatic cholestasis and consult placed to Gen. surgery for evaluation. Vital signs reviewed and stable. General: Nontoxic, no distress and appears stated age. Derm: Skin warm and dry, normal coloration for ethnicity. Head: Atraumatic, normocephalic and symmetric. Eyes: EOMs intact, no lid lag, and anicteric sclera Mouth: no lip lesions, mucus membranes moist Cardiovascular: regular rate and rhythm with normal S1S2, no murmur, positive posterior tibial pulses bilaterally, and cap refill < 2 seconds. Lungs: Respirations even, regular, and unlabored on room air. Lungs CTA bilaterally, no rhonchi, no rales, no wheezing, and no accessory muscle usage. Abdominal: soft, diffuse tenderness to palpation, no guarding, no appreciable organomegaly Ext: ROM intact. No gross muscle atrophy, no edema, no contractures Neuro: Speech clear, face symmetrical and CN II-XII grossly intact with no noted focal neuro deficits Psych: Alert and oriented to person, place, time, and situation. Appropriate and pleasant affect. Assessment and Plan of Care: Intractable nausea, vomiting, and diarrhea likely secondary to symptomatic cholelithiasis - CT abdomen and pelvis revealing cholelithiasis and elevated right diaphragm wi th bowel between the liver and diaphragm. -Consult placed to Gen. surgery for evaluation -CBC and CMP nremarkable. -Symptomatic management with pain control and antiemetics UTI, ruled out -IV antibiotics discontinued secondary to negative urine culture. Hypokalemia, resolved Hypertension -Monitor vital signs and Continue daily medication regimen with losartan Anxiety -Continue daily medication regimen with Zoloft CODE STATUS: Full Code DVT prophylaxis: Heparin Discussed with: Patient and RN Anticipated discharge date: Clinical course to determine Anticipated discharge place: Home A total of 35 minutes was spent on the care of this complex patient more than 50% of the time was spent in counseling and care coordination. I reviewed the documentation as provided by the JOSE above, who is the original author of this note. I agree with the documented assessment and plan, with the following changes: none Objective - Vital Signs Vital signs: Vital Signs Temp 98.1 F 11/08/21 12:56 Pulse 73 11/08/21 12:56 Resp 16 11/08/21 12:56 BP 169/99 11/08/21 15:41 Pulse Ox 96 11/08/21 12:56 FiO2 Intake & Output 11/07/21 11/08/21 11/08/21 18:59 06:59 18:59 Intake Total 2790 1220 Output Total 900 1025 900 Balance 1890 195 -900 Intake: Intake, IV Titration 1610 1220 Amount Sodium Chloride 0.9% 1, 1560 1170 000 ml @ 130 mls/hr IV . [id number] [facility] Rx#:[id number] 1 gm In 50 50 Sodium Chloride 0.9% 50 ml @ 100 mls/hr IVPB Q12H [facility] Rx#:[id number] Oral 1180 Output: Urine 900 1025 900 Other: Voiding Method Bedside Commode External Catheter Incontinent External Catheter # Voids 8 # Bowel Movements 1 - Labs CBC & Chem 7: 11/08/21 13:58 11/08/21 13:58 Labs: Abnormal Lab Results - Last 24 Hours (Table) 11/08/21 11/08/21 11/08/21 Range/Units 05:03 05:03 13:58 RBC 3.95 L (4.10-5.20) X 10*6/uL Hgb 10.4 L (12.0-15.0) g/dL Hct 34.8 L (37.2-46.3) % MCH 26.3 L (27.0-32.0) pg MCHC 29.9 L (32.0-37.0) g/dL RDW 14.6 H (11.5-14.5) % Lymphocytes # 0.9 L (1.0-4.8) k/uL Anion Gap 5.90 L (10.00-18.00) mmol/L BUN 8.8 L (9.0-27.0) mg/dL Creatinine 0.5 L (0.6-1.5) mg/dL Glucose (74-99) mg/dL Calcium 8.1 L (8.7-10.3) mg/dL Total Bilirubin <0.15 L (0.30-1.20) mg/dL Total Protein 4.8 L (6.2-8.2) g/dL Albumin 3.0 L (3.8-4.9) g/dL 11/08/21 Range/Units 13:58 RBC (4.10-5.20) X 10*6/uL Hgb (12.0-15.0) g/dL Hct (37.2-46.3) % MCH (27.0-32.0) pg MCHC (32.0-37.0) g/dL RDW (11.5-14.5) % Lymphocytes # (1.0-4.8) k/uL Anion Gap (10.00-18.00) mmol/L BUN (9.0-27.0) mg/dL Creatinine 0.51 L (0.6-1.5) mg/dL Glucose 116 H (74-99) mg/dL Calcium (8.7-10.3) mg/dL Total Bilirubin 0.1 L (0.30-1.20) mg/dL Total Protein 6.0 L (6.2-8.2) g/dL Albumin 3.4 L (3.8-4.9) g/dL Microbiology - Last 24 Hours (Table) 11/07/21 01:31 Urine Culture - Final Urine,Voided
[2021-11-09] MEDS: ASPIRIN 81 MG PO SCH (09:48)
[2021-11-09] MEDS: PANTOPRAZOLE 40 MG TABLET PO SCH (09:48)
[2021-11-09] MEDS: ACETAMINOPHEN TAB 325 MG TAB PO PRN (09:48)
[2021-11-09] MEDS: HEPARIN SODIUM,PORCINE/PF 5,000 UNIT/0.5 ML SYRINGE SQ SCH ×2 (09:49→17:24)
[2021-11-09] MEDS: SERTRALINE 50 MG TAB PO SCH (09:49)
[2021-11-09] MEDS: FOLIC ACID 1 MG TAB PO SCH (09:49)
[2021-11-09] MEDS: LOSARTAN 25 MG TAB PO SCH (09:49)
[2021-11-09] MEDS: OXYBUTYNIN CHLORIDE 5 MG TAB PO SCH ×3 (09:50→17:25)
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
--- NOTE | 2021-11-09 17:34 | P.PN ---
Subjective Progress Note Date: 11/09/21 Hospital course: Patient is a very pleasant 68-year-old female with a past medical history of hypertension, hyperlipidemia, anxiety and coronary artery disease. She presented to the emergency room with complaints of nausea, vomiting, and cough. Patient reported that her entire family is currently sick with COVID and that over the past 2 days, she had been experiencing nausea, vomiting, diarrhea. Patient also reported having a nonproductive cough without fever or chills. She stated she has been having poor oral intake due to her symptoms. Denied chest discomfort or shortness of breath. Reported diffuse achy abdominal discomfort due to vomiting. Denies hematemesis or coffee-ground emesis. Chest x-ray in the emergency room was unremarkable with laboratory evaluation remarkable for potassium of 3.2, UA consistent with UTI, and negative for COVID PCR. Patient admitted under our services. Patient's urine culture negative ruling out a UTI and Rocephin discontinued at this time. CT abdomen and pelvis revealing cholelithiasis and elevated right diaphragm with bowel between the liver and diaphragm. Patient continues to report significant abdominal pain. Discharge order canceled. Patient admitted to inpatient for symptomatic cholestasis and consult placed to Gen. surgery for evaluation. General surgery evaluated recommending patient follow up outpatient for scheduled laparoscopic cholecystectomy. Patient also evaluated by physical therapy secondary to weak ness with decreased endurance and strength, physical therapy recommending [facility] facility placement upon discharge. Case management arranging placement in SNF and patient currently awaiting insurance authorization for [facility]. Physical exam: Patient seen and fully evaluated at bedside this morning. She reports she has had some improvement in abdominal pain but continues to have urinary frequency. Patient is on Ditropan 3 times daily for treatment of overactive bladder. Patient denies experiencing any burning with urination or hematuria. General surgery evaluated stating patient can follow up outpatient for scheduled laparoscopic cholecystectomy. Patient is currently medically stable at this time. Discharge orders will be placed once insurance authorization is obtained. Vital signs reviewed and stable. General: Nontoxic, no distress and appears stated age. Derm: Skin warm and dry, normal coloration for ethnicity. Head: Atraumatic, normocephalic and symmetric. Eyes: EOMs intact, no lid lag, and anicteric sclera Mouth: no lip lesions, mucus membranes moist Cardiovascular: regular rate and rhythm with normal S1S2, no murmur, positive posterior tibial pulses bilaterally, and cap refill < 2 seconds. Lungs: Respirations even, regular, and unlabored on room air. Lungs CTA bilaterally, no rhonchi, no rales, no wheezing, and no accessory muscle usage. Abdominal: soft, diffuse tenderness to palpation, no guarding, no appreciable organomegaly Ext: ROM intact. No gross muscle atrophy, no edema, no contractures Neuro: Speech clear, face symmetrical and CN II-XII grossly intact with no noted focal neuro deficits Psych: Alert and oriented to person, place, time, and situation. Appropriate and pleasant affect. Assessment and Plan of Care: Intractable abdominal pain, nausea, vomiting, and diarrhea secondary to symptomatic cholelithiasis. -Patient reports resolution of previously reported intractable abdominal pain, nausea, vomiting and diarrhea. - CT abdomen and pelvis revealing cholelithiasis and elevated right diaphragm with bowel between the liver and diaphragm. -Gen. surgery evaluated, recommending patient follow up outpatient for scheduled laparoscopic cholecystectomy. -CBC and CMP nremarkable. -Symptomatic management with pain control and antiemetics UTI, ruled out -IV antibiotics discontinued secondary to negative urine culture. Hypokalemia, resolved Hypertension -Monitor vital signs and Continue daily medication regimen with losartan Anxiety -Continue daily medication regimen with Zoloft CODE STATUS: Full Code DVT prophylaxis: Heparin Discussed with: Patient and RN Anticipated discharge date: Patient to be discharged as soon as insurance authorization is obtained. Anticipated discharge place: [facility] A total of 35 minutes was spent on the care of this complex patient more than 50% of the time was spent in counseling and care coordination. I reviewed the documentation as provided by the JOSE above, who is the original author of this note. I agree with the documented assessment and plan, with the following changes: none Objective - Vital Signs Vital signs: Vital Signs Temp 98.0 F 11/09/21 06:12 Pulse 85 11/09/21 06:12 Resp 16 11/08/21 20:33 BP 170/78 11/09/21 05:00 Pulse Ox 97 11/09/21 06:12 FiO2 Intake & Output 11/08/21 11/09/21 11/09/21 18:59 06:59 18:59 Intake Total 830 Output Total 900 Balance -900 830 Intake: Oral 830 Output: Urine 900 Other: Voiding Method Incontinent Incontinent External Catheter External Catheter # Voids 10 6 # Bowel Movements 1 3 - Labs CBC & Chem 7: 11/08/21 13:58 11/08/21 13:58 Labs: Abnormal Lab Results - Last 24 Hours (Table) 11/08/21 11/08/21 11/08/21 Range/Units 05:03 05:03 13:58 RBC 3.95 L (4.10-5.20) X 10*6/uL Hgb 10.4 L (12.0-15.0) g/dL Hct 34.8 L (37.2-46.3) % MCH 26.3 L (27.0-32.0) pg MCHC 29.9 L (32.0-37.0) g/dL RDW 14.6 H (11.5-14.5) % Lymphocytes # 0.9 L (1.0-4.8) k/uL Anion Gap 5.90 L (10.00-18.00) mmol/L BUN 8.8 L (9.0-27.0) mg/dL Creatinine 0.5 L (0.6-1.5) mg/dL Glucose (74-99) mg/dL Calcium 8.1 L (8.7-10.3) mg/dL Total Bilirubin <0.15 L (0.30-1.20) mg/dL Total Protein 4.8 L (6.2-8.2) g/dL Albumin 3.0 L (3.8-4.9) g/dL 11/08/21 Range/Units 13:58 RBC (4.10-5.20) X 10*6/uL Hgb (12.0-15.0) g/dL Hct (37.2-46.3) % MCH (27.0-32.0) pg MCHC (32.0-37.0) g/dL RDW (11.5-14.5) % Lymphocytes # (1.0-4.8) k/uL Anion Gap (10.00-18.00) mmol/L BUN (9.0-27.0) mg/dL Creatinine 0.51 L (0.6-1.5) mg/dL Glucose 116 H (74-99) mg/dL Calcium (8.7-10.3) mg/dL Total Bilirubin 0.1 L (0.30-1.20) mg/dL Total Protein 6.0 L (6.2-8.2) g/dL Albumin 3.4 L (3.8-4.9) g/dL Microbiology - Last 24 Hours (Table) 11/07/21 01:31 Urine Culture - Final Urine,Voided
[2021-11-10] MEDS: HEPARIN SODIUM,PORCINE/PF 5,000 UNIT/0.5 ML SYRINGE SQ SCH ×3 (00:47→08:04)
[2021-11-10] MEDS: OXYBUTYNIN CHLORIDE 5 MG TAB PO SCH (08:04)
[2021-11-10] MEDS: LOSARTAN 25 MG TAB PO SCH (08:04)
[2021-11-10] MEDS: SERTRALINE 50 MG TAB PO SCH (08:04)
[2021-11-10] MEDS: ASPIRIN 81 MG PO SCH (08:04)
[2021-11-10] MEDS: FOLIC ACID 1 MG TAB PO SCH (08:04)
[2021-11-10] MEDS: PANTOPRAZOLE 40 MG TABLET PO SCH (08:04)
--- NOTE | 2021-11-10 09:53 | P.PN ---
Subjective Progress Note Date: 11/10/21 CHIEF COMPLAINT: Nausea and vomiting HISTORY OF PRESENT ILLNESS: Surgical service following regards to patient's symptomatic cholelithiasis. Patient denies any abdominal pain. Denies any nausea or vomiting. She did report an upset stomach prior to breakfast this morning. However after eating she denies any nausea or vomiting and no pain. Afebrile. Patient reports that she is being discharged today. PHYSICAL EXAM: VITAL SIGNS: Reviewed. GENERAL: Well-developed in no acute distress. HEENT: No sclera icterus. Extraocular movements grossly intact. Moist buccal mucosa. Head is atraumatic, normocephalic. ABDOMEN: Soft. Nondistended. Nontender. NEUROLOGIC: Alert and oriented. Cranial nerves II through XII grossly intact. ASSESSMENT: 1. Abdominal pain with nausea and vomiting. Improved 2. Symptomatic cholelithiasis PLAN: -Recommend laparoscopic cholecystectomy outpatient -Recommend low-fat diet -No surgical intervention planned at this time Physician Felt Hat Inspector And Packer note has been reviewed by physician. Signing provider agrees with the documented findings, assessment, and plan of care. Objective - Vital Signs Vital signs: Vital Signs Temp 98.2 F 11/10/21 08:22 Pulse 77 11/10/21 08:22 Resp 20 11/10/21 08:22 BP 148/84 11/10/21 08:22 Pulse Ox 96 11/10/21 08:22 FiO2 Intake & Output 11/09/21 11/10/21 11/10/21 18:59 06:59 18:59 Output Total 300 249 Balance -300 -249 Output: Urine 300 Straight 300 Post Void Residual 249 Other: Voiding Method Incontinent Incontinent Incontinent External Catheter External Catheter External Catheter # Voids 10 1 # Bowel Movements 2 0 - Labs CBC & Chem 7: 11/08/21 13:58 11/08/21 13:58
[2021-11-10] MEDS: ACETAMINOPHEN TAB 325 MG TAB PO PRN (10:47)
--- NOTE | 2021-11-10 11:54 | P.DS ---
Providers Date of admission: 11/08/21 16:05 Expected date of discharge: 11/10/21 Attending physician: Tracey Lombardi MD Consults: 11/08/21 15:57 Consult Physician Routine Consulting Provider: Cesar Medeiros Consult Reason/Comments: symptomatic cholelithiasis Do you want consulting provider notified?: Yes Primary care physician: Radha Gardner [facility] Course: Discharge Diagnosis: Intractable abdominal pain, nausea, vomiting, and diarrhea secondary to symptomatic cholelithiasis. Pain, nausea, vomiting, and diarrhea have all resolved. Patient evaluated by general surgery recommended outpatient follow-up in their office to schedule laparoscopic cholecystectomy. UTI, ruled out Urinary retention, Ditropan discontinued. Hypokalemia, resolved Hypertension. Monitor vital signs and Continue daily medication regimen with losartan Anxiety. Continue daily medication regimen with Zoloft Hospital Course: Patient is a very pleasant 68-year-old female with a past medical history of hypertension, hyperlipidemia, anxiety and coronary artery disease. She presented to the emergency room with complaints of nausea, vomiting, and cough. Patient reported that her entire family is currently sick with COVID and that over the past 2 days, she had been experiencing nausea, vomiting, diarrhea. Patient also reported having a nonproductive cough without fever or chills. She stated she has been having poor oral intake due to her symptoms. Denied chest discomfort or shortness of breath. Reported diffuse achy abdominal discomfort due to vomiting. Denies hematemesis or coffee-ground emesis. Chest x-ray in the emergency room was unremarkable with laboratory evaluation remarkable for potassium of 3.2, UA consistent with UTI, and negative for COVID PCR. Patient admitted under our services. Patient's urine culture negative ruling out a UTI and Rocephin discontinued at this time. CT abdomen and pelvis revealing cholelithiasis and elevated right diaphragm with bowel between the liver and diaphragm. Patient continues to report significant abdominal pain. Discharge order canceled. Patient admitted to inpatient for symptomatic cholestasis and consult placed to Gen. surgery for evaluation. General surgery evaluated patient and recommending her to follow up outpatient to schedule laparoscopic cholecystectomy. Patient also evaluated by physical therapy secondary to weakness with decreased endurance and strength, physical therapy recommending [facility] upon discharge. Patient is medically stable. Insurance authorization has been obtained and patient being [place] [facility] [place] Ditropan was discontinued secondary to patient having noted episodes of urinary retention during hospitalization. Patient will need to follow up outpatient with urology for long-term monitoring/management, and she is currently urinating without any difficulties.Patient also to follow up outpatient with PCP and with general surgery. Physical exam: Vital signs reviewed and stable. General: Nontoxic, no distress and appears stated age. Derm: Skin warm and dry, normal coloration for ethnicity. Head: Atraumatic, normocephalic and symmetric. Eyes: EOMs intact, no lid lag, and anicteric sclera Mouth: no lip lesions, mucus membranes moist Cardiovascular: regular rate and rhythm with normal S1S2, no murmur, positive posterior tibial pulses bilaterally, and cap refill < 2 seconds. Lungs: Respirations even, regular, and unlabored on room air. Lungs CTA bilaterally, no rhonchi, no rales, no wheezing, and no accessory muscle usage. Abdominal: soft, diffuse tenderness to palpation, no guarding, no appreciable organomegaly Ext: ROM intact. No gross muscle atrophy, no edema, no contractures Neuro: Speech clear, face symmetrical and CN II-XII grossly intact with no noted focal neuro deficits Psych: Alert and oriented to person, place, time, and situation. Appropriate and pleasant affect. A total of 36 minutes of time were spent preparing this complex discharge summary. Pt was discharged on 11/10/21 11:46 AM. I reviewed the documentation as provided by the JOSE above, who is the original author of this note. I agree with the documented assessment and plan, with the following changes: none Patient Condition at Discharge: Stable Plan - Discharge Summary Discharge Rx Participant: Yes New Discharge Prescriptions: New Acetaminophen Tab [Tylenol] 650 mg PO Q6HR PRN tab PRN Reason: Mild Pain Or Fever > 100.5 Continue Multivitamins, Thera [Multivitamin (formulary)] 1 tab PO DIRECTED Aspirin EC [Ecotrin Low Dose] 81 mg PO DIRECTED Ibuprofen [Motrin] 600 mg PO Q12H PRN PRN Reason: Pain Pantoprazole [Protonix] 40 mg PO DIRECTED Potassium Chloride ER [K-Dur 20] 20 meq PO DAILY 30 Days #30 tab Metoclopramide HCl [Reglan] 5 mg PO BID 30 Days #60 tablet Vitamin B Complex 1 cap PO DIRECTED Losartan [Cozaar] 25 mg PO DIRECTED Folic Acid 1 mg PO DIRECTED Sertraline [Zoloft] 50 mg PO DIRECTED Discontinued Oxybutynin Chloride [Ditropan] 5 mg PO DIRECTED PRN PRN Reason: BLADDER SPASMS Discharge Medication List Multivitamins, Thera [Multivitamin (formulary)] 1 tab PO DIRECTED 08/26/21 [History] Pantoprazole [Protonix] 40 mg PO DIRECTED 08/26/21 [History] Metoclopramide HCl [Reglan] 5 mg PO BID 30 Days #60 tablet 09/06/21 [Rx] Potassium Chloride ER [K-Dur 20] 20 meq PO DAILY 30 Days #30 tab 09/06/21 [Rx] Aspirin EC [Ecotrin Low Dose] 81 mg PO DIRECTED 11/07/21 [History] Folic Acid 1 mg PO DIRECTED 11/07/21 [History] Ibuprofen [Motrin] 600 mg PO Q12H PRN 11/07/21 [History] Losartan [Cozaar] 25 mg PO DIRECTED 11/07/21 [History] Sertraline [Zoloft] 50 mg PO DIRECTED 11/07/21 [History] Vitamin B Complex 1 cap PO DIRECTED 11/07/21 [History] Acetaminophen Tab [Tylenol] 650 mg PO Q6HR PRN tab 11/10/21 [Rx] Follow up Appointment(s)/Referral(s): Kendra Garcia MD [Primary Care Provider] - 1-2 days Tonny Gill MD [STAFF PHYSICIAN] - 1 Week Cesar Medeiros MD [STAFF PHYSICIAN] - 2 Weeks Activity/Diet/Wound Care/Special Instructions: Activity: As tolerated. Take breaks as needed. Diet: Heart healthy and carb consistent diet. Avoid salts, or foods with hidden salts such as canned or boxed foods and frozen dinners. Extra salt makes your heart work harder and traps the fluid in your body for longer. Special Instructions: Take all of your medications as directed and remember to keep all of your doctor's appointments and follow-up as needed. Ditropan has been discontinued secondary to findings of urinary retention. You will need to follow up outpatient with urology. General surgery has evaluated and they are recommending outpatient follow-up to schedule cholecystectomy. Thank you for allowing us to participate in your care, it was truly a pleasure having you for our patient!!! Discharge Disposition: TRANSFER TO SNF/ECF
[2021-11-10 13:36] VITALS: BP 123/62; PULSE 66; RESP 18; TEMP 98.7
== END 2021-11-10 16:45 ==
LOC: EC 00:04 → 6NMEDSUR 03:03 → 5NMEDONC 05:30 → INTOOBSV 11-08 16:05 → OBSVTOIN 11-08 16:05 → UNDODISIN 11-10 16:45
PROVIDERS: ADMIT Internal Medicine; ATTEND Internal Medicine
DX: K80.20 Calculus of gallbladder without cholecystitis without obstruction (principal); E87.6 Hypokalemia; I11.0 Hypertensive heart disease with heart failure; I50.9 Heart failure, unspecified; I25.10 Atherosclerotic heart disease of native coronary artery without angina pectoris; K44.9 Diaphragmatic hernia without obstruction or gangrene; K57.30 Diverticulosis of large intestine without perforation or abscess without bleeding; R33.9 Retention of urine, unspecified; M19.90 Unspecified osteoarthritis, unspecified site; N39.3 Stress incontinence (female) (male); E78.5 Hyperlipidemia, unspecified; J45.909 Unspecified asthma, uncomplicated; R26.9 Unspecified abnormalities of gait and mobility; R82.90 Unspecified abnormal findings in urine; K21.9 Gastro-esophageal reflux disease without esophagitis; Z16.21 Resistance to vancomycin; F41.9 Anxiety disorder, unspecified; Z20.822 Contact with and (suspected) exposure to COVID-19; Z79.82 Long term (current) use of aspirin; Z79.899 Other long term (current) drug therapy; Z88.0 Allergy status to penicillin; Z91.048 Other nonmedicinal substance allergy status; Z88.8 Allergy status to other drugs, medicaments and biological substances; Z86.16 Personal history of COVID-19; Z87.01 Personal history of pneumonia (recurrent); Z87.440 Personal history of urinary (tract) infections; Z86.19 Personal history of other infectious and parasitic diseases; Z95.5 Presence of coronary angioplasty implant and graft; Z98.890 Other specified postprocedural states; Z83.2 Family history of diseases of the blood and blood-forming organs and certain disorders involving the immune mechanism; Z82.49 Family history of ischemic heart disease and other diseases of the circulatory system
CPT/HCPCS: 96361 ×2; 96366 ×2; 96372 ×3; 96365; 96375; 99285; 36415; 97116; 97110; 97530; 97162; 97535 ×2; 97166; 80053 ×2; 82150; 83605; 83690; 83735; 84100; 84484; 85025 ×2; 81001; 87086; 87635; 71045; 74176; G0378 ×5; J0696 ×3; C9113; J1644 ×3

== ENCOUNTER 2021-12-05 07:03 | Emergency (ER) | payer MEDICARE, OTHER ==
[2021-12-05 07:10] VITALS: RESP 18; TEMP 98.4
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
[2021-12-05 07:45] LABS: Appearance,Urine Clear (Clear); Bilirubin,Urine Negative (Negative); Blood,Urine Negative (Negative); Color,Urine Dark Brown; Glucose,Urine (UA) Negative (Negative); Ketones,Urine Negative (Negative); Leukocyte Esterase,Urine Negative (Negative); Nitrite,Urine Negative (Negative); Protein,Urine Negative (Negative); Specific Gravity,Urine 1.008 (1.001-1.035); Urobilinogen,Urine <2.0 mg/dL (<2.0)
[2021-12-05] MEDS ORDERED: SODIUM CHLORIDE 0.9% 1,000 ML IV ONE (07:50)
[2021-12-05 08:08] LABS: Basophils # (A) 0.1 k/uL (0-0.2); Basophils % (A) 1 %; Eosinophils # (A) 0.1 k/uL (0-0.7); Eosinophils % (A) 2 %; HCT 40.2 % (34.0-46.0); HGB 12.7 gm/dL (11.4-16.0); Lymphocytes # (A) 1.5 k/uL (1.0-4.8); Lymphocytes % (A) 35 %; MCH 27.5 pg (25.0-35.0); MCHC 31.6 g/dL (31.0-37.0); MCV 86.9 fL (80.0-100.0); Mean Platelet Volume 9.2; Monocytes # (A) 0.4 k/uL (0-1.0); Monocytes % (A) 10 %; Neutrophils % (A) 49 %; Platelet Count 290 k/uL (150-450); RBC 4.62 m/uL (3.80-5.40); RDW 13.9 % (11.5-15.5); WBC 4.2 k/uL (3.8-10.6)
[2021-12-05 08:20] LABS: ALT 16 U/L (4-34); AST 29 U/L (14-36); African American GFR (CKD) >90 (>60 ml/min/1.73 sqM); Albumin 4.3 g/dL (3.5-5.0); Alkaline Phosphatase 91 U/L (38-126); Anion Gap 12 mmol/L; Blood Urea Nitrogen 17 mg/dL (7-17); Calcium 9.4 mg/dL (8.4-10.2); Carbon Dioxide 23 mmol/L (22-30); Chloride 100 mmol/L (98-107); Glucose 97 mg/dL (74-99); Non-African American GFR(CKD) >90 (>60 ml/min/1.73 sqM); Sodium 135 mmol/L (137-145); Total Bilirubin 0.7 mg/dL (0.2-1.3); Total Protein 7.4 g/dL (6.3-8.2)
[2021-12-05 08:46] LABS: Potassium 4.8 mmol/L (3.5-5.1)
[2021-12-05 11:29] VITALS: BP 121/81; PULSE 62
== END 2021-12-05 11:45 | disposition home or self-care (01) ==
LOC: EC 07:03
DX: R30.0 Dysuria (principal); K21.9 Gastro-esophageal reflux disease without esophagitis; J45.909 Unspecified asthma, uncomplicated; E78.5 Hyperlipidemia, unspecified; I10 Essential (primary) hypertension; Z79.83 Long term (current) use of bisphosphonates; Z91.040 Latex allergy status; Z88.0 Allergy status to penicillin; Z88.8 Allergy status to other drugs, medicaments and biological substances
CPT/HCPCS: 36415; 80053; 81003; 85025; 96360; 99283

== ENCOUNTER 2021-12-19 10:44 | Observation (INO) | payer MEDICARE, OTHER ==
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
[2021-12-19 12:33] LABS: Basophils # (A) 0.1 k/uL (0-0.2); Basophils % (A) 1 %; Eosinophils # (A) 0.1 k/uL (0-0.7); Eosinophils % (A) 1 %; HGB 12.3 gm/dL (11.4-16.0); Lymphocytes % (A) 19 %; MCH 27.4 pg (25.0-35.0); MCHC 32.4 g/dL (31.0-37.0); MCV 84.6 fL (80.0-100.0); Mean Platelet Volume 8.8; Monocytes # (A) 0.6 k/uL (0-1.0); Monocytes % (A) 11 %; Neutrophils # (A) 3.5 k/uL (1.3-7.7); Neutrophils % (A) 66 %; Platelet Count 246 k/uL (150-450); RBC 4.49 m/uL (3.80-5.40); RDW 13.6 % (11.5-15.5); WBC 5.3 k/uL (3.8-10.6)
[2021-12-19 12:46] LABS: ALT 14 U/L (4-34); AST 26 U/L (14-36); African American GFR (CKD) >90 (>60 ml/min/1.73 sqM); Albumin 3.9 g/dL (3.5-5.0); Alkaline Phosphatase 117 U/L (38-126); Amylase 216 U/L (30-110); Anion Gap 9 mmol/L; Blood Urea Nitrogen 21 mg/dL (7-17); Calcium 9.1 mg/dL (8.4-10.2); Carbon Dioxide 25 mmol/L (22-30); Chloride 96 mmol/L (98-107); Glucose 102 mg/dL (74-99); Lipase 435 U/L (23-300); Non-African American GFR(CKD) >90 (>60 ml/min/1.73 sqM); Potassium 4.6 mmol/L (3.5-5.1); Sodium 130 mmol/L (137-145); Total Bilirubin 0.6 mg/dL (0.2-1.3); Total Protein 6.6 g/dL (6.3-8.2)
--- NOTE | 2021-12-19 13:08 | XR ---
EXAMINATION TYPE: XR KUB DATE OF EXAM: 12/19/2021 COMPARISON: 10/02/2021 HISTORY: Pain TECHNIQUE: One view abdominal series FINDINGS: Diffuse osteopenia with severe arthropathy of the bilateral hip greater on the left with marked defor mity of the femoral head. Calcifications the pelvis are likely vascular with the largest calcificatio n likely related uterine fibroid. Postsurgical changes lower lumbar spine. Bowel gas pattern nonspeci fic. Age-indeterminate superior compression deformities upper lumbar spine and T12. IMPRESSION: 1. Nonspecific abdomen.
--- NOTE | 2021-12-19 13:12 | XR ---
EXAMINATION TYPE: XR Hip LT and AP Pelvis DATE OF EXAM: 12/19/2021 COMPARISON: NONE HISTORY: Pain TECHNIQUE: A single AP view of the pelvis is obtained. Two views of the left hip are obtained. FINDINGS: There is postsurgical change lower lumbar spine with diffuse osteopenia and severe bilater al hip arthropathy. There is a deformity involving the left femoral head which appears to be chronic. Vascular calcifications are seen as well as calcification larger in the right pelvis likely on the b asis of a fibroid uterus. IMPRESSION: 1. Deformity involving the left hip appears chronic with severe arthropathy and remodeling of the fem oral head.
[2021-12-19] MEDS ORDERED: SODIUM CHLORIDE 0.9% 1,000 ML IV ONE (14:01)
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
[2021-12-20 05:37] LABS: Appearance,Urine Clear (Clear); Bilirubin,Urine Negative (Negative); Blood,Urine Negative (Negative); Color,Urine Light Yellow; Glucose,Urine (UA) Negative (Negative); Ketones,Urine Negative (Negative); Leukocyte Esterase,Urine Negative (Negative); Nitrite,Urine Negative (Negative); PH, Urine 6.5 (5.0-8.0); Protein,Urine Negative (Negative); Urobilinogen,Urine <2.0 mg/dL (<2.0)
[2021-12-20 08:58] LABS: HCT 34.9 % (37.2-46.3); HGB 11.6 g/dL (12.0-15.0); MCH 27.8 pg (27.0-32.0); MCHC 33.2 g/dL (32.0-37.0); MCV 83.7 fL (80.0-97.0); Mean Platelet Volume 11.3 fL (9.5-12.2); NRBC Per 100 WBC 0 /100 WBCS (0.0-0.0); Platelet Count 268 X 10*3/uL (140-440); RBC 4.17 X 10*6/uL (4.10-5.20); WBC 4.97 X 10*3/uL (4.50-10.00)
[2021-12-20] MEDS: LOSARTAN 25 MG TAB PO SCH (09:08)
[2021-12-20 09:10] LABS: African American GFR (CKD) 107.4 (60.0-200.0); Albumin 3.8 g/dL (3.8-4.9); Albumin/Globulin Ratio 1.58 (1.60-3.17); Anion Gap 10.8 mmol/L (10.00-18.00); BUN/Creat Ratio 29.8 Ratio (12.00-20.00); Blood Urea Nitrogen 14.9 mg/dL (9.0-27.0); Calcium 9.2 mg/dL (8.7-10.3); Carbon Dioxide 25.2 mmol/L (20.0-27.5); Globulin 2.4 g/dL (1.6-3.3); Non-African American GFR(CKD) 92.7 (60.0-200.0); Potassium 4.6 mmol/L (3.5-5.5); Total Bilirubin 0.3 mg/dL (0.30-1.20); Total Protein 6.2 g/dL (6.2-8.2)
[2021-12-20] MEDS ORDERED: ONDANSETRON 4 MG/2 ML VIAL IVP PRN (11:38)
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
[2021-12-20] MEDS: ACETAMINOPHEN TAB 325 MG TAB PO PRN ×2 (14:12→23:32)
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
[2021-12-20 16:58] LABS: Chol/HDL Ratio 2.46 Ratio; LDL Cholesterol,Calculated 103.1 mg/dL (0.0-131.0); VLDL Calculation 15.06 mg/dL (5.00-40.00)
--- NOTE | 2021-12-20 17:49 | P.PN ---
Subjective Progress Note Date: 12/20/21 Patient was seen and examined. No acute events overnight. Patient reports improvement in her right upper quadrant abdominal pain. She reports burning with urination. She continues to report left-sided hip pain with ambulation. States that she fell a couple of days ago. Did not seek medical attention. General: non toxic, no distress, appears at stated age, normal weight Derm: no unusual rashes/lesions, warm Head: atraumatic, normocephalic, symmetric Eyes: EOMI, no lid lag, anicteric sclera ENT: Nose and ears atraumatic Neck: No cervical lymphadenopathy, trachea midline, supple Mouth: no lip lesion, mucus membranes moist Cardiovascular: S1S2 reg, no murmur, no edema Lungs: CTA bilateral, no rhonchi, no rales, no accessory muscle use Abdominal: soft, mild right upper quadrant tenderness to palpation, no guarding Ext: Left hip restricted range of motion due to pain Neuro: no gross focal neuro deficits Psych: Alert, oriented, appropriate affect Assessment/plan Dysuria -Urinalysis negative likely chronic cystitis History of CAD -Cardiology consulted for medical clearance for possible surgery -Echocardiogram and EKG ordered -Patient started on aspirin and metoprolol -Lipid panel and hemoglobin A1c ordered Left hip pain -Hip xray negative for fracture -PT and OT consult RUQ pain w/ hx of cholelithiasis -Case discussed with surgery team, no plans for surgical intervention at this time -Full liquid diet and advance as tolerated -Management defer to surgery Resolved: Hyponatremia, prerenal azotemia Thank you for this consultation. Please call some physicians with additional questions or concerns. Objective - Vital Signs Vital signs: Vital Signs Temp 98 F 12/20/21 15:03 Pulse 56 L 12/20/21 15:03 Resp 17 12/20/21 15:03 BP 148/85 12/20/21 15:03 Pulse Ox 97 12/20/21 15:03 FiO2 Intake & Output 12/19/21 12/20/21 12/20/21 18:59 06:59 18:59 Weight 97.522 kg 41.277 kg 41.277 kg Other: Voiding Method Toilet Diaper Diaper External Catheter External Catheter # Voids 3 1 # Bowel Movements 1 - Labs CBC & Chem 7: 12/20/21 05:15 12/20/21 05:15 Labs: Abnormal Lab Results - Last 24 Hours (Table) 12/20/21 12/20/21 12/20/21 Range/Units 05:15 05:15 05:15 Hgb 11.6 L (12.0-15.0) g/dL Hct 34.9 L (37.2-46.3) % Creatinine 0.5 L (0.6-1.5) mg/dL BUN/Creatinine Ratio 29.80 H (12.00-20.00) Ratio Albumin/Globulin Ratio 1.58 L (1.60-3.17) g/dL HDL Cholesterol 80.80 H (40.00-60.00) mg/dL Lipase 255 H (14-63) U/L
[2021-12-20] MEDS: KETOROLAC 15 MG/ML 1 ML VIAL IVP PRN (18:12)
[2021-12-20] MEDS ORDERED: PRAVASTATIN SODIUM 20 MG TAB PO SCH (21:00)
[2021-12-21 03:24] VITALS: RESP 16
[2021-12-21] MEDS ORDERED: ASPIRIN 81 MG PO SCH (09:00)
[2021-12-21] MEDS ORDERED: METOPROLOL TARTRATE 12.5 MG TAB PO SCH (09:00)
--- NOTE | 2021-12-21 09:28 | P.PN ---
Subjective Progress Note Date: 12/21/21 Patient was seen and examined. No acute events overnight. Patient reports no abdominal pain today. Tolerating diet well. No nausea or vomiting. She continues to report left-sided hip pain with ambulation. Patient now reports that her L hip pain is chronic but got worsened with a recent fall. General: non toxic, no distress, appears at stated age, normal weight Derm: no unusual rashes/lesions, warm Head: atraumatic, normocephalic, symmetric Eyes: EOMI, no lid lag, anicteric sclera ENT: Nose and ears atraumatic Neck: No cervical lymphadenopathy, trachea midline, supple Mouth: no lip lesion, mucus membranes moist Cardiovascular: S1S2 reg, no murmur, no edema Lungs: CTA bilateral, no rhonchi, no rales, no accessory muscle use Abdominal: soft, no tenderness to palpation, no guarding Neuro: no gross focal neuro deficits Psych: Alert, oriented, appropriate affect Assessment/plan Dysuria -Urinalysis negative likely chronic cystitis History of CAD -Cardiology consulted for medical clearance for possible surgery -Echocardiogram and EKG ordered -Patient started on aspirin and metoprolol -A1c within normal limits -Lipid panel shows T. Chol 199 with LDL of 103.1 Left hip pain -Hip xray negative for fracture -PT and OT consult RUQ pain w/ hx of cholelithiasis -Case discussed with surgery team, no plans for surgical intervention at this time -Full liquid diet and advance as tolerated -Management defer to surgery Resolved: Hyponatremia, prerenal azotemia Thank you for this consultation. Please call some physicians with additional questions or concerns. Objective - Vital Signs Vital signs: Vital Signs Temp 98.2 F 12/21/21 07:23 Pulse 61 12/21/21 07:23 Resp 16 12/21/21 07:23 BP 111/71 12/21/21 07:23 Pulse Ox 96 12/21/21 07:23 FiO2 Intake & Output 12/20/21 12/21/21 12/21/21 18:59 06:59 18:59 Intake Total 652 240 Balance 652 240 Weight 41.277 kg Intake: Oral 652 240 Other: Voiding Method Diaper Diaper Diaper External Catheter External Catheter Incontinent # Voids 4 3 1 # Bowel Movements 1 - Labs CBC & Chem 7: 12/20/21 05:15 12/20/21 05:15 Labs: Abnormal Lab Results - Last 24 Hours (Table) 12/20/21 Range/Units 05:15 HDL Cholesterol 80.80 H (40.00-60.00) mg/dL
[2021-12-21] MEDS: LOSARTAN 25 MG TAB PO SCH (09:41)
[2021-12-21] MEDS: KETOROLAC 15 MG/ML 1 ML VIAL IVP PRN (10:31)
--- NOTE | 2021-12-21 11:42 | P.PN ---
Progress Note - Text *Asked to evaluate this patient who presented with abdominal pain without any cardiac symptoms for preop clearance for surgery yesterday Patient evaluated However there was never any surgery planned Recommend In the future, surgical consultation first to confirm if patient is going in for surgery If patient surgery is planned, consultation for preop clearance thereafter
[2021-12-21 11:48] VITALS: BP 112/75; PULSE 71; TEMP 98.8
--- NOTE | 2021-12-21 13:26 | P.DS ---
Providers Date of admission: 12/19/21 14:02 Expected date of discharge: 12/21/21 Attending physician: Cesar Medeiros Consults: 12/19/21 14:01 Consult Physician Urgent Consulting Provider: Colton Flowers Consult Reason/Comments: Medical clearance Do you want consulting provider notified?: Yes Primary care physician: Stated None Hospital Course: Discharge diagnosis 1. Symptomatic cholelithiasis 2. Right upper quadrant abdominal pain 3. Mild pancreatitis 4. Left hip pain Hospital course This is a 76-year-old female with known history of gallstones. She was supposed to have to a follow up visit with Dr. Medeiros in the office. Patient thought she was supposed to have gallbladder surgery. No actual surgery has been scheduled. Patient presented to the emergency room with complaints of worsening right upper quadrant pain. Patient reports that she has had this pain for a while. She was noted to have symptomatic gallstones on her last hospitalization in November and at that time was recommended outpatient cholecystectomy. Patient tolerating diet. Denies any nausea or vomiting. She has been up and ambulating. She does have chronic left hip pain. X-ray of the hip was completed no evidence of fracture. She has been cleared by medicine service for discharge. She denies any abdominal pain. Dr. Medeiros is planning for outpatient cholecystectomy after patient has had appropriate recovery time due to recent abdominal surgeries just over a year ago. Patient is stable for discharge. Please refer to chart for any further details. Physician Submarine Diver note has been reviewed by physician. Signing provider agrees with the documented findings, assessment, and plan of care. Patient Condition at Discharge: Stable Plan - Discharge Summary Discharge Rx Participant: No New Discharge Prescriptions: New Aspirin 81 mg PO DAILY #90 tab Metoprolol Tartrate [Lopressor] 12.5 mg PO DAILY #90 tab Pravastatin Sodium [Pravachol] 20 mg PO HS #90 tab Continue Ibuprofen [Motrin] 600 mg PO Q12H PRN PRN Reason: Pain Omeprazole Magnesium [PriLOSEC OTC] 20 mg PO DAILY Losartan [Cozaar] 25 mg PO DAILY Folic Acid 1 mg PO DAILY Metoclopramide HCl [Reglan] 5 mg PO BID PRN PRN Reason: Nausea Discharge Medication List Folic Acid 1 mg PO DAILY 11/07/21 [History] Ibuprofen [Motrin] 600 mg PO Q12H PRN 11/07/21 [History] Losartan [Cozaar] 25 mg PO DAILY 11/07/21 [History] Metoclopramide HCl [Reglan] 5 mg PO BID PRN 12/19/21 [History] Omeprazole Magnesium [PriLOSEC OTC] 20 mg PO DAILY 12/19/21 [History] Aspirin 81 mg PO DAILY #90 tab 12/21/21 [Rx] Metoprolol Tartrate [Lopressor] 12.5 mg PO DAILY #90 tab 12/21/21 [Rx] Pravastatin Sodium [Pravachol] 20 mg PO HS #90 tab 12/21/21 [Rx] Follow up Appointment(s)/Referral(s): None,Stated [Primary Care Provider] - 1-2 days Cesar Medeiros MD [STAFF PHYSICIAN] - 1 Week Activity/Diet/Wound Care/Special Instructions: Discharge diet regular Activity as tolerated Discharge Disposition: HOME SELF-CARE
--- NOTE | 2021-12-21 14:21 | CA ---
Transthoracic Echo Report Name: Luisana Cheng Age: 76 Gender: F : 1945 Exam Date: 12/20/2021 10:20 Exam Location: [facility] Ht (in): 60 Wt (lb): 91 Ordering Physician: Jessica Maldonado Attending/Referring Phys: [id number], Joel [employer]ic Shante Cook, CAROL Procedure CPT: Indications: LV function Cardiac Hx: Technical Quality: Fair Contrast 1: Total Dose (mL): Contrast 2: Total Dose (mL): MEASUREMENTS (Male / Female) Normal Values 2D ECHO LV Diastolic Diameter PLAX 3.9 cm 4.2 - 5.9 / 3.9 - 5.3 cm LV Systolic Diameter PLAX 2.3 cm IVS Diastolic Thickness 0.8 cm 0.6 - 1.0 / 0.6 - 0.9 cm LVPW Diastolic Thickness 1.1 cm 0.6 - 1.0 / 0.6 - 0.9 cm LV Relative Wall Thickness 0.5 RV Internal Dim ED PLAX 2.7 cm LA Systolic Diameter LX 2.9 cm 3.0 - 4.0 / 2.7 - 3.8 cm LA Volume 30.1 cm??? 18 - 58 / 22 - 52 cm??? M-MODE Aortic Root Diameter MM 3.3 cm MV E Point Septal Separation 0.6 cm AV Cusp Separation MM 1.7 cm DOPPLER AV Peak Velocity 91.3 cm/s AV Peak Gradient 3.3 mmHg MV Area PHT 2.5 cm??? Mitral E Point Velocity 68.6 cm/s Mitral A Point Velocity 78.8 cm/s Mitral E to A Ratio 0.9 MV Deceleration Time 302.4 ms MV E' Velocity 4.2 cm/s Mitral E to MV E' Ratio 16.2 TR Peak Velocity 209.5 cm/s TR Peak Gradient 17.6 mmHg Right Ventricular Systolic Press 22.6 mmHg FINDINGS Left Ventricle Left ventricular ejection fraction is estimated at 50-55 %. Left ventricular cavity size normal. Left ventricular wall thickness normal. Right Ventricle Normal right ventricular size and function. Right ventricular systolic pressure within normal limits. Right Atrium Normal right atrial size. Left Atrium Normal left atrial size. No evidence for an atrial septal defect. Mitral Valve Mitral valve thickened. Mitral annular calcification. Aortic Valve Trileaflet aortic valve. No aortic valve stenosis, trace to mild aortic regurgitation. Tricuspid Valve Mild tricuspid regurgitation. Pulmonic Valve Pulmonic valve not well visualized. Pericardium Normal pericardium. No pericardial effusion. Aorta Normal size aortic root and proximal ascending aorta. CONCLUSIONS Overall reasonably well preserved LV systolic function Mild anteroseptal hypokinesis with a septal bulge Previewed by: Dr. Julius Hernandez MD (Electronically Signed) Final Date: 20 December 2021 13:05
== END 2021-12-21 14:05 | disposition home or self-care (01) ==
LOC: EC 10:44 → 6NMEDSUR 14:02
PROVIDERS: ADMIT Surgery; ATTEND Surgery
DX: K80.20 Calculus of gallbladder without cholecystitis without obstruction (principal); K85.90 Acute pancreatitis without necrosis or infection, unspecified; E87.1 Hypo-osmolality and hyponatremia; E87.8 Other disorders of electrolyte and fluid balance, not elsewhere classified; R79.89 Other specified abnormal findings of blood chemistry; M85.88 Other specified disorders of bone density and structure, other site; M12.852 Other specific arthropathies, not elsewhere classified, left hip; M12.851 Other specific arthropathies, not elsewhere classified, right hip; I11.0 Hypertensive heart disease with heart failure; I50.9 Heart failure, unspecified; I25.10 Atherosclerotic heart disease of native coronary artery without angina pectoris; E78.5 Hyperlipidemia, unspecified; J45.909 Unspecified asthma, uncomplicated; K21.9 Gastro-esophageal reflux disease without esophagitis; E44.1 Mild protein-calorie malnutrition; E83.42 Hypomagnesemia; I08.3 Combined rheumatic disorders of mitral, aortic and tricuspid valves; Z86.16 Personal history of COVID-19; Z99.81 Dependence on supplemental oxygen; Z95.5 Presence of coronary angioplasty implant and graft; Z82.49 Family history of ischemic heart disease and other diseases of the circulatory system; Z79.899 Other long term (current) drug therapy; Z88.0 Allergy status to penicillin; Z79.82 Long term (current) use of aspirin
CPT/HCPCS: 96361 ×2; 96374; 96376; 99285; 36415; 93005; 93306; 97162; 97166; 80061; 80053 ×2; 82150; 83690 ×2; 85025; 85027; 81003; 83036; 73502; 74018; G0378 ×3; J1885 ×2

== ENCOUNTER 2022-01-13 11:24 | Emergency (ER) | payer MEDICARE, OTHER ==
[2022-01-13 11:50] VITALS: TEMP 98.2
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
[2022-01-13 14:26] LABS: Appearance,Urine Clear (Clear); Bilirubin,Urine Negative (Negative); Blood,Urine Small (Negative); Color,Urine Light Yellow; Glucose,Urine (UA) Negative (Negative); Ketones,Urine Negative (Negative); Leukocyte Esterase,Urine Negative (Negative); Nitrite,Urine Negative (Negative); PH, Urine 5.5 (5.0-8.0); Protein,Urine Negative (Negative); RBC,Urine 13 /hpf (0-5); Specific Gravity,Urine 1.014 (1.001-1.035); Urobilinogen,Urine <2.0 mg/dL (<2.0); WBC,Urine 2 /hpf (0-5)
[2022-01-13] MEDS ORDERED: MORPHINE SULFATE 2 MG/ML SYRINGE IVP STA (15:26)
[2022-01-13] MEDS ORDERED: ONDANSETRON 4 MG/2 ML VIAL IVP STA (15:26)
[2022-01-13] MEDS ORDERED: SODIUM CHLORIDE 0.9% 1,000 ML IV STA (15:26)
[2022-01-13] MEDS ORDERED: FAMOTIDINE 20 MG/2 ML VIAL IV STA (15:27)
[2022-01-13 16:04] LABS: Basophils # (A) 0.1 k/uL (0-0.2); Basophils % (A) 1 %; Eosinophils # (A) 0.1 k/uL (0-0.7); Eosinophils % (A) 2 %; HCT 32.3 % (34.0-46.0); HGB 10.8 gm/dL (11.4-16.0); Lymphocytes # (A) 1.1 k/uL (1.0-4.8); Lymphocytes % (A) 11 %; MCH 28.2 pg (25.0-35.0); MCHC 33.4 g/dL (31.0-37.0); MCV 84.3 fL (80.0-100.0); Mean Platelet Volume 8.8; Monocytes # (A) 0.4 k/uL (0-1.0); Monocytes % (A) 5 %; Neutrophils # (A) 7.6 k/uL (1.3-7.7); Neutrophils % (A) 81 %; Platelet Count 393 k/uL (150-450); RBC 3.83 m/uL (3.80-5.40); RDW 13.7 % (11.5-15.5); WBC 9.4 k/uL (3.8-10.6)
[2022-01-13 16:16] LABS: ALT 27 U/L (4-34); AST 34 U/L (14-36); African American GFR (CKD) >90 (>60 ml/min/1.73 sqM); Alkaline Phosphatase 191 U/L (38-126); Amylase 165 U/L (30-110); Anion Gap 13 mmol/L; Blood Urea Nitrogen 31 mg/dL (7-17); Calcium 9.7 mg/dL (8.4-10.2); Carbon Dioxide 24 mmol/L (22-30); Chloride 97 mmol/L (98-107); Glucose 98 mg/dL (74-99); Lipase 285 U/L (23-300); Non-African American GFR(CKD) 88 (>60 ml/min/1.73 sqM); Potassium 4.5 mmol/L (3.5-5.1); Sodium 134 mmol/L (137-145); Total Bilirubin 0.3 mg/dL (0.2-1.3); Total Protein 6.6 g/dL (6.3-8.2)
[2022-01-13 16:22] LABS: INR 0.9 (<1.2); Partial Thromboplastin Time 22.2 sec (22.0-30.0); Prothrombin Time 9.8 sec (9.0-12.0)
--- NOTE | 2022-01-13 17:50 | CT ---
EXAMINATION TYPE: CT abdomen pelvis w con DATE OF EXAM: 01/13/2022 COMPARISON: 11/08/2021 HISTORY: abdominal pain, UTI CT DLP: 495.1 mGycm Automated exposure control for dose reduction was used. CONTRAST: Performed with IV Contrast, patient injected with 100 mL of Isovue 300. Images obtained from the diaphragm to the floor the pelvis with IV contrast. There is some atelectasis at the lung bases bilaterally. There is elevated right diaphragm. There is interposition of the hepatic flexure of the colon which is a normal variant. Stomach is intact. Heart size is fairly normal. No pericardial effusion. Liver and spleen are intact. The bile ducts are not dilated. No pancreatic mass. There is no adrenal mass. Gallbladder is intact. There is probably a 1.5 cm gallstone. Kidneys show satisfactory contrast opacification. No hydronephrosis. There are small renal cortical c ysts that measure up to 1.5 cm. No hydronephrosis. Ureters are not dilated. Delayed images show cipriano l renal excretion. No retroperitoneal adenopathy. There is some intestinal surgery in the lower mid a bdomen. There is some wall thickening of the posterior wall urinary bladder. No inguinal hernia. Uter us is retroverted with posterior calcified fibroids. No free fluid in the pelvis. No evidence of a april wel obstruction. No mesenteric edema. No ascites or free air. There is previous gastric surgery. The lumbar vertebrae have normal alignment. There is anterior wedging of L1 and T12 and T11 up to 40% . Fractures appear old. There is advanced arthritic disease in the left hip joint. There is some flat tening of the articular surface of the left femoral head and deformity consistent with some chronic a vascular necrosis or old subcapital fracture. Right hip joint appears intact. IMPRESSION: Mild interstitial density and atelectasis at the lung bases without change. No acute abnormality in t he abdomen and pelvis. Previous bowel surgery. No bowel obstruction. There is some sigmoid diverticul osis without diverticulitis without change. There is mild wall thickening of the posterior wall urina ry bladder which is increased compared to the old exam. This could be some blood clot or debris. Tumo r not excluded. Follow-up is recommended.
[2022-01-13 21:05] VITALS: BP 119/68; PULSE 69; RESP 15
== END 2022-01-13 21:05 | disposition home or self-care (01) ==
LOC: EC 11:24
DX: R31.9 Hematuria, unspecified (principal); J45.909 Unspecified asthma, uncomplicated; K21.9 Gastro-esophageal reflux disease without esophagitis; I10 Essential (primary) hypertension; Z79.83 Long term (current) use of bisphosphonates; Z91.048 Other nonmedicinal substance allergy status; Z88.0 Allergy status to penicillin; Z88.8 Allergy status to other drugs, medicaments and biological substances
CPT/HCPCS: 36415; 93005; 80053; 82150; 83690; 85025; 85610; 85730; 81001; 74177; 99284; 96374; 96375; 96361; J2405; J2270; Q9967

== ENCOUNTER 2022-03-29 08:38 | Emergency (ER) | payer MEDICARE, OTHER ==
[2022-03-29 08:45] VITALS: TEMP 97.7
[2022-03-29] MEDS ORDERED: MORPHINE SULFATE 4 MG/ML SYRINGE IM STA (09:13)
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
--- NOTE | 2022-03-29 09:20 | XR ---
EXAMINATION TYPE: XR shoulder complete RT DATE OF EXAM: 03/29/2022 CLINICAL HISTORY: pain TECHNIQUE: Three views of the right shoulder are obtained. COMPARISON: None FINDINGS: There is no acute fracture/dislocation evident. The acromioclavicular and glenohumeral ankit int spaces appear moderately narrowed. The visualized ribs are intact and unremarkable. IMPRESSION: 1. There is no acute fracture or dislocation. ICD 10 NO FRACTURE, INITIAL EVALUATION
[2022-03-29 11:24] VITALS: BP 167/98; PULSE 81; RESP 16
== END 2022-03-29 11:24 | disposition home or self-care (01) ==
LOC: EC 08:38
DX: M25.511 Pain in right shoulder (principal); J45.909 Unspecified asthma, uncomplicated; I25.10 Atherosclerotic heart disease of native coronary artery without angina pectoris; I11.0 Hypertensive heart disease with heart failure; I50.9 Heart failure, unspecified; M19.90 Unspecified osteoarthritis, unspecified site; E78.5 Hyperlipidemia, unspecified; K21.9 Gastro-esophageal reflux disease without esophagitis; Z79.899 Other long term (current) drug therapy; Z88.0 Allergy status to penicillin; Z88.8 Allergy status to other drugs, medicaments and biological substances; Z88.2 Allergy status to sulfonamides
CPT/HCPCS: 93005; 73030; 99285; 96372; J2270

== ENCOUNTER → 2022-08-01 | Outpatient (CLI) | payer MEDICARE, OTHER ==
--- NOTE | 2022-08-01 14:22 | CT ---
EXAMINATION TYPE: CT hip LT wo con DATE OF EXAM: 08/01/2022 COMPARISON: Radiograph 12/19/2021 HISTORY: 77-year-old female M25.452, left hip pain TECHNIQUE: Contiguous axial scanning of the left hip without IV contrast. Coronal and sagittal recons tructions performed. 3-D reconstructions generated on a dedicated workstation. CT DLP: 309.4 mGycm Automated exposure control for dose reduction was used. FINDINGS: There is generalized osteopenia. There is end-stage [id number] left hip osteoarthrosis. Extensive b nelia remodeling and erosion of the acetabular roof as well as the superior weightbearing one third asp ect of the femoral head. This results in relative superior positioning of the left femur in relation to the right femur. Sigmoid diverticulosis. Suspect small partially calcified uterine fibroids measuring up to 1.4 cm. Pe lvic phleboliths. IMPRESSION: END-STAGE, BONE ON BONE LEFT HIP OA WITH SECONDARY BONY REMODELING AND EROSION OF THE ACETABULAR ROOF AND UPPER THIRD WEIGHTBEARING ASPECT OF THE FEMORAL HEAD. NO DISPLACED FRACTURES ARE SEEN.
== END | disposition home or self-care (01) ==
LOC: RADCTMAIN 12:16
PROVIDERS: ATTEND Orthopaedic Surgery
DX: M24.452 Recurrent dislocation, left hip (principal); S73.005A Unspecified dislocation of left hip, initial encounter; M25.452 Effusion, left hip; M16.12 Unilateral primary osteoarthritis, left hip

== ENCOUNTER → 2022-09-18 | Outpatient (CLI) | payer MEDICARE, OTHER ==
[2022-09-18 08:58] LABS: INR 0.9 (<1.2); Partial Thromboplastin Time 23.9 sec (22.0-30.0); Prothrombin Time 10.1 sec (9.0-12.0)
[2022-09-18 11:05] LABS: HCT 45.2 % (37.2-46.3); HGB 14.1 d/dL (12.0-15.0); MCH 27.1 pg (27.0-32.0); MCHC 31.2 d/dL (32.0-37.0); MCV 86.8 FL (80.0-97.0); NRBC Per 100 WBC 0 X 10*3/uL (0.00-0.01); Platelet Count 289 X 10*3/uL (140-440); RBC 5.21 X 10*6/uL (4.10-5.20); RDW 14.4 % (11.5-14.5); WBC 8.62 X 10*3/uL (4.50-10.00)
[2022-09-18 11:08] LABS: ALT 26 U/L (8-44); AST 23 U/L (13-35); Albumin 4.2 d/dL (3.8-4.9); Albumin/Globulin Ratio 1.31 Ratio (1.60-3.17); Alkaline Phosphatase 135 U/L (41-126); BUN/Creat Ratio 43.17 Ratio (12.00-20.00); Blood Urea Nitrogen 25.9 mg/dL (9.0-27.0); Calcium 10.1 mg/dL (8.7-10.3); Carbon Dioxide 28.2 mmol/L (21.6-31.8); Chloride 101 mmol/L (96-109); Globulin 3.2 d/dL (1.6-3.3); Glucose 96 mg/dL (70-110); Potassium 5.2 mmol/L (3.5-5.5); Sodium 140 mmol/L (135-145); Total Bilirubin 0.3 mg/dL (0.3-1.2); Total Protein 7.4 d/dL (6.2-8.2)
[2022-09-18 11:32] LABS: Bacteria,Urine 1+ (None Seen)
[2022-09-18 11:33] LABS: Appearance,Urine Turbid (Clear); Bilirubin,Urine Negative (Negative); Blood,Urine Small (Negative); Color,Urine Yellow (Yellow); Ketones,Urine Negative (Negative); Nitrite,Urine Negative (Negative); PH, Urine 5.5; Specific Gravity,Urine 1.015 (1.001-1.030); Urobilinogen,Urine 0.2
== END | disposition home or self-care (01) ==
LOC: LABPAT 07:41
PROVIDERS: ATTEND Orthopaedic Surgery
DX: Z01.812 Encounter for preprocedural laboratory examination (principal); M16.12 Unilateral primary osteoarthritis, left hip
CPT/HCPCS: 36415; 80053; 81001; 85027; 85610; 85730; 87070

== ENCOUNTER → 2022-09-27 | Day surgery (SDC) | payer MEDICARE, OTHER ==
[2022-09-25 08:57] VITALS: BMI 23.4
[~2022-09-27] MED LIST: HYDROmorphone 0.5 MG/0.5 ML SYRINGE IVP PRN; LACTATED RINGERS 1,000 ML IV SCH; ONDANSETRON 4 MG/2 ML VIAL IVP ONE; VANCOMYCIN 1,000 MG in SODIUM CHLORIDE 0.9% 250 ML IVPB PRN
[2022-09-27 14:50] VITALS: BP 152/74; PULSE 79; RESP 16; TEMP 98
== END ==
LOC: OR 14:13
PROVIDERS: ATTEND Orthopaedic Surgery
DX: Z53.8 Procedure and treatment not carried out for other reasons (principal); M25.552 Pain in left hip; M24.452 Recurrent dislocation, left hip
CPT/HCPCS: 86850; 86870; 86880; 86900; 86901

== ENCOUNTER → 2022-10-18 | Outpatient (CLI) | payer MEDICARE, OTHER ==
[2022-10-18 11:01] LABS: INR 0.9 (<1.2); Partial Thromboplastin Time 24.7 sec (22.0-30.0); Prothrombin Time 9.9 sec (9.0-12.0)
[2022-10-18 15:26] LABS: HCT 45.6 % (37.2-46.3); HGB 14.2 d/dL (12.0-15.0); MCH 27.6 pg (27.0-32.0); MCHC 31.1 d/dL (32.0-37.0); MCV 88.7 FL (80.0-97.0); Mean Platelet Volume 11.3 FL (9.5-12.2); NRBC Per 100 WBC 0 X 10*3/uL (0.00-0.01); Platelet Count 306 X 10*3/uL (140-440); RBC 5.14 X 10*6/uL (4.10-5.20); RDW 14.8 % (11.5-14.5); WBC 9.33 X 10*3/uL (4.50-10.00)
[2022-10-18 16:48] LABS: ALT 23 U/L (8-44); AST 22 U/L (13-35); Albumin 4.2 d/dL (3.8-4.9); Albumin/Globulin Ratio 1.17 Ratio (1.60-3.17); Alkaline Phosphatase 136 U/L (41-126); BUN/Creat Ratio 31.33 Ratio (12.00-20.00); Blood Urea Nitrogen 18.8 mg/dL (9.0-27.0); Calcium 10.1 mg/dL (8.7-10.3); Carbon Dioxide 27.4 mmol/L (21.6-31.8); Chloride 101 mmol/L (96-109); Globulin 3.6 d/dL (1.6-3.3); Glucose 97 mg/dL (70-110); Potassium 5.1 mmol/L (3.5-5.5); Sodium 138 mmol/L (135-145); Total Bilirubin 0.4 mg/dL (0.3-1.2); Total Protein 7.8 d/dL (6.2-8.2)
== END | disposition home or self-care (01) ==
LOC: LABPAT 09:04
PROVIDERS: ATTEND Orthopaedic Surgery
DX: Z01.812 Encounter for preprocedural laboratory examination (principal); M16.12 Unilateral primary osteoarthritis, left hip
CPT/HCPCS: 80053; 85027; 85610; 85730

== ENCOUNTER 2022-10-20 07:28 | Inpatient (IN) | payer MEDICARE, OTHER ==
[2022-10-17 11:23] VITALS: BMI 23.2
[~2022-10-20 07:28] MED LIST changes: -HYDROmorphone 0.5 MG/0.5 ML SYRINGE IVP PRN; -LACTATED RINGERS 1,000 ML IV SCH; -ONDANSETRON 4 MG/2 ML VIAL IVP ONE
[2022-10-20] MEDS ORDERED: HYDROmorphone 0.5 MG/0.5 ML SYRINGE IVP PRN ×3 (08:08→12:12)
[2022-10-20] MEDS ORDERED: MIDAZOLAM 2 MG/2 ML VIAL IV PRN (08:08)
[2022-10-20] MEDS: LACTATED RINGERS 1,000 ML IV SCH ×2 (08:54→15:32)
[2022-10-20] MEDS ORDERED: ONDANSETRON 4 MG/2 ML VIAL ONE (08:56)
[2022-10-20] MEDS ORDERED: DEXAMETHASONE SOD PHOSPHATE 4 MG/ML 1 ML VIAL IVP ONE (09:23)
[2022-10-20] MEDS ORDERED: ONDANSETRON 4 MG/2 ML VIAL IVP ONE (09:24)
[2022-10-20] MEDS ORDERED: ACETAMINOPHEN TAB 500 MG TAB PO STA (09:56)
[2022-10-20] MEDS ORDERED: FAMOTIDINE 20 MG/2 ML VIAL IV ONE (09:57)
[2022-10-20] MEDS ORDERED: KETOROLAC 15 MG/ML 1 ML VIAL IVP STA (09:57)
[2022-10-20] MEDS ORDERED: DOCUSATE 100 MG CAP PO STA (09:58)
[2022-10-20] MEDS ORDERED: ceFAZolin 1,000 MG VIAL (IM USE) IM STA (09:58)
[2022-10-20] MEDS ORDERED: ONDANSETRON 4 MG/2 ML VIAL IVP STA (09:58)
[2022-10-20] MEDS ORDERED: TRANEXAMIC ACID 1,000 MG in SODIUM CHLORIDE 0.9% 100 ML IVPB ONE ×4 (09:59)
[2022-10-20] MEDS ORDERED: DEXAMETHASONE SOD PHOSPHATE 10 MG/ML 1 ML VIAL IVP STA (10:01)
[2022-10-20] MEDS ORDERED: oxyCODONE ER 10 MG TAB.ER.12H PO ONE (10:13)
[2022-10-20] MEDS ORDERED: fentaNYL (PF) 50 MCG/ML 2 ML AMP ONE (10:21)
[2022-10-20] MEDS ORDERED: ROCURONIUM 10 MG/ML (5 ML VIAL) IV ONE (10:21)
[2022-10-20] MEDS ORDERED: NEOSTIGMINE 1 MG/ML 10 ML VIAL ONE (10:21)
[2022-10-20] MEDS ORDERED: KETAMINE 10 MG/ML 20 ML VIAL ONE (10:21)
[2022-10-20] MEDS ORDERED: ePHEDrine 50 MG/ML 1 ML VIAL ONE (10:21)
[2022-10-20] MEDS ORDERED: LIDOCAINE 2% INJ 20 MG/ML (2 ML VIAL) ONE (10:21)
[2022-10-20] MEDS ORDERED: PROPOFOL 10 MG/ML 20 ML VIAL IV ONE (10:21)
[2022-10-20] MEDS ORDERED: SUCCINYLCHOLINE CHLORIDE 200 MG/10 ML VIAL IV ONE (10:21)
[2022-10-20] MEDS ORDERED: GLYCOPYRROLATE 0.2 MG/ML 2 ML VIAL ONE (10:21)
[2022-10-20] MEDS ORDERED: TRANEXAMIC 1,000 MG/100ML-NACL PREMIX BAG ONE (10:21)
[2022-10-20] MEDS ORDERED: MIDAZOLAM 2 MG/2 ML VIAL ONE (10:21)
[2022-10-20] MEDS ORDERED: ceFAZolin 1,000 MG VIAL ONE (11:11)
[2022-10-20] MEDS ORDERED: SODIUM CHLORIDE 0.9% 100 ML BAG ONE (11:11)
[2022-10-20] MEDS ORDERED: SODIUM CHLORIDE 0.9% 50 ML with ceFAZolin 2,000 MG IV ONE ×2 (11:11)
[2022-10-20] MEDS: ROPIVACAINE/EPI/CLONIDINE/KET 50 ML SYRINGE MISCELLANE PRN ×2 (11:15→11:29)
--- NOTE | 2022-10-20 12:06 | XR ---
EXAMINATION TYPE: XR Hip Limited LT DATE OF EXAM: 10/20/2022 COMPARISON: NONE HISTORY: Postop TECHNIQUE: One view submitted. FINDINGS: Intraoperative limited resolution images submitted. Surgical changes are noted. There is a surgical staple along the left pubic ramus. Probable calcified uterine fibroid noted with additional vascular calcifications. Metallic screw overlying the lower L5-S1 level. IMPRESSION: 1. See above
[2022-10-20] MEDS ORDERED: ONDANSETRON 4 MG/2 ML VIAL IVP PRN (12:12)
[2022-10-20] MEDS ORDERED: NALOXONE 0.4 MG/ML 1 ML VIAL IV PRN (12:12)
[2022-10-20] MEDS ORDERED: HYDROcodone/APAP 5-325MG 1 EACH TAB PO PRN (12:12)
--- NOTE | 2022-10-20 12:23 | P.OP ---
Date of Procedure: 10/20/22 Preoperative Diagnosis: 1. 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 Nonambulatory at baseline 3. Heart disease 4. Chronic urinary tract infections 5. Multiple falls Postoperative Diagnosis: Same Procedure(s) Performed: 1. Left hip Girdlestone resection 2. Application of negative pressure incisional wound VAC, left hip less than 50 cm Anesthesia: GETA Surgeon: Paddy Cohn [employer] Billing Analyst #1: Reyna Abbott Estimated Blood Loss (ml): 50 IV fluids (ml): 600 Urine output (ml): 500 Pathology: none sent Condition: stable Disposition: PACU Indications for Procedure: The patient is a very pleasant 77-year-old female with multiple medical problems with sustained multiple falls over the last several years. At baseline she is in a wheelchair and lives at a residential. She presented to my office several months ago following multiple falls with difficulty ambulating and chronic hip pain. X-rays showed a chronic hip fracture dislocation and severe osteopenia with bone loss in the acetabulum. I obtained a computed tomography scan to evaluate for reconstructive options. The computed tomography scan showed severe osteopenia and acetabular bone loss as well as a chronic femoral head fracture. I long discussion with the patient and her sister. Given her multiple medical problems, nonambulatory status, being wheelchair bound, and severe bone loss I recommended against either a total or partial hip replacement. We discussed the high likelihood of complications particularly periprosthetic fracture and possibly hip dislocation. My recommendation was to perform a Girdlestone hip resection for pain relief. We are long discussion on this procedure and both the patient and her sister seem to have realistic expectations. They understand that it is a salvage procedure for pain relief. She can ambulate with assistance and a walker on a Girdlestone resection. They're well aware of the potential risks and complications of surgery including but certainly not limited to risks from anesthesia, superficial infection, deep infection, damage to local blood vessels or nerves, delayed wound healing, fracture, and inability to regain preinjury level of function, continued or worsened pain, medical complications such as DVT, PE, failure to thrive, acute coronary event, and possibly . They voiced understanding of these potential complications were also acknowledging that other less common complications are possible. They provided both her verbal and written consent to go forward with surgery. Operative Findings: Chronic fracture dislocation of the left hip. The patient had severe osteopenia. There was peripheral bone loss around the acetabulum particularly posterolaterally. Her acetabulum did not not appear able to accommodate fixation of a primary or revision cup or even hold a hemiarthroplasty reduced. Given the patient's medical comorbidities an ambulatory status we elected to proceed with a Girdlestone resection. Description of Procedure: The patient was identified in the preoperative holding area and the correct hip was marked with my initials. I reviewed the procedure and consent with the patient. All of their questions were answered. The patient was then brought back into the operating room by anesthesia. While on the [facility] anesthesia was administered by the anesthesia team. Preoperative antibiotics and tranexamic acid were also given. After the patient was under anesthesia I examined their ankles to determine their preoperative leg length discrepancy. The skin over the anterior aspect of the hip was shaved to remove hair over the site of planned incision. Both feet and ankles were padded with webril and boots for the Hernshaw were applied. The patient was then carefully transferred onto the Hernshaw table. A perineal post was immediately placed. The arms were placed on arm holders and were well-padded. Both boots were secured to the spars on the Hernshaw table. The patient was positioned so that the pelvis was centered over the post. Nonsterile drapes were applied. A timeout was performed identifying the correct patient, operative extremity, and procedure. At this point fluoroscopy was brought in to take preoperative images of the pelvis and operative hip. Fluoroscopy was then brought out and a pre-scrub using a chlorhexidine scrub brush was performed. The operative limb was then prepped and draped in the standard sterile fashion. An anterior longitudinal incision was made lateral and distal to the ASIS. The skin and subcutaneous tissues were incised sharply. The underlying tensor fascia was identified and incised in its midportion. The fascia was dissected free from the underlying muscle and the muscle belly was retracted. A blunt tipped cobra retractor was placed over the superior neck under the muscle fibers of the gluteus minimus. The deep enveloping fascia of the tensor was incised. The anterior leash of vessels were then identified and cauterized. The fascia between the rectus and the capsule was then incised and the pre-capsular fat was excised. A second Cobra was placed inferior to the neck. The interval between the rectus and iliocapsularis and the hip capsule was developed and a retractor was placed carefully over the anterior rim of the acetabulum. A T-shaped anterior capsulotomy was performed. Immediately upon entering the hip joint a chronic femoral head fracture was noted. The superior aspect of the femoral head was removed. Capsular flaps were elevated and retractors were placed intracapsularly around the neck. Fluoroscopy was brought in to lucero the level of the neck resection. The neck resection was then made in the basicervical neck with a sagittal saw. Traction was applied to the table and the femoral head was removed with a corkscrew. On inspection of the acetabulum there was deficient bone posteriorly and the remaining socket was diffusely osteopenic. The acetabulum did not appear amenable to cup fixation. I also didn't think the socket would hold a hemiarthroplasty reduced. At this point bone wax was applied over the cut surface of the femoral neck. The wound was thoroughly irrigated with pulsatile lavage. The capsule was closed over the hip joint with 0 Vicryl. A deep drain was placed. The wound was then closed in layers. The skin was reinforced with nylon sutures. Due to the patient's body habitus and soft tissue envelope an incisional wound VAC was applied over the left hip. This was hooked up to suction and had good seal. A drain sponge was applied. The patient was awoken from her anesthetic, transferred off the OR table onto a gurney, and brought to recovery having tolerated the procedure well. Reyna Abbott PA-C was required as a skilled accounting administrative assistant for patient positioning, surgical exposure, retraction, placement of implants, and closure of the surgical wound. PLAN: The patient can weight-bear as tolerated on her left hip with assistance and a walker. I would like her to mobilize up out of bed into a chair. 2 doses postoperative antibiotics. We will send her home on doxycycline until her incision heals. DVT prophylaxis with aspirin. Discharge planning process.
[2022-10-20] MEDS: HYDROcodone/APAP 5-325MG 1 EACH TAB PO PRN ×2 (15:42→21:01)
[2022-10-20] MEDS: MULTIVITAMINS, THERA 1 EACH TAB PO SCH (20:13)
[2022-10-20] MEDS: ASPIRIN 81 MG PO SCH (20:13)
[2022-10-20] MEDS: PRAVASTATIN SODIUM 20 MG TAB PO SCH (20:13)
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
[2022-10-20] MEDS ORDERED: FAMOTIDINE 20 MG TAB PO SCH (21:00)
[2022-10-21] MEDS: HYDROcodone/APAP 5-325MG 1 EACH TAB PO PRN ×3 (02:14→22:26)
[2022-10-21] MEDS: LACTATED RINGERS 1,000 ML IV SCH ×3 (02:18→08:05)
[2022-10-21 05:58] LABS: Basophils % (A) 0 %; Eosinophils % (A) 0 %; HCT 35.2 % (34.0-46.0); HGB 11.2 gm/dL (11.4-16.0); Lymphocytes # (A) 1.3 k/uL (1.0-4.8); Lymphocytes % (A) 9 %; MCH 28.3 pg (25.0-35.0); MCHC 31.9 g/dL (31.0-37.0); MCV 88.6 fL (80.0-100.0); Mean Platelet Volume 9.9; Monocytes # (A) 1.3 k/uL (0-1.0); Monocytes % (A) 9 %; Neutrophils # (A) 11.8 k/uL (1.3-7.7); Neutrophils % (A) 81 %; Platelet Count 263 k/uL (150-450); RBC 3.97 m/uL (3.80-5.40); RDW 14.3 % (11.5-15.5); WBC 14.7 k/uL (3.8-10.6)
[2022-10-21 06:07] LABS: African American GFR (CKD) 84 (>60 ml/min/1.73 sqM); Anion Gap 9 mmol/L; Blood Urea Nitrogen 25 mg/dL (7-17); Calcium 8.7 mg/dL (8.4-10.2); Carbon Dioxide 24 mmol/L (22-30); Chloride 99 mmol/L (98-107); Glucose 112 mg/dL (74-99); Non-African American GFR(CKD) 73 (>60 ml/min/1.73 sqM); Potassium 4.9 mmol/L (3.5-5.1); Sodium 132 mmol/L (137-145)
[2022-10-21] MEDS: HYDROmorphone 0.5 MG/0.5 ML SYRINGE IVP PRN ×5 (07:03→19:57)
[2022-10-21] MEDS: ASPIRIN 81 MG PO SCH ×2 (08:04→19:53)
[2022-10-21] MEDS: FAMOTIDINE 20 MG TAB PO SCH (08:04)
[2022-10-21] MEDS: METOPROLOL SUCCINATE (ER) 25 MG TAB.ER.24H PO SCH (08:04)
[2022-10-21] MEDS: CHOLECALCIFEROL 25 MCG (1000 IU) TABLET PO SCH (08:04)
[2022-10-21] MEDS: SERTRALINE 50 MG TAB PO SCH (08:04)
--- NOTE | 2022-10-21 08:14 | P.PN ---
Subjective Progress Note Date: 10/21/22 The patient is resting comfortably in her bed. She has mild pain in the left hip but is otherwise without complaints. She denies chest pain or shortness of breath. Objective - Vital Signs Vital signs: Vital Signs Temp 98.3 F 10/21/22 02:00 Pulse 84 10/21/22 02:00 Resp 17 10/21/22 02:00 BP 123/74 10/21/22 02:00 Pulse Ox 93 L 10/21/22 02:00 FiO2 Intake & Output 10/20/22 10/21/22 10/21/22 18:59 06:59 18:59 Intake Total 1200 1080 Output Total 900 310 Balance 300 770 Weight 61.2 kg Intake: IV 1200 Intake, IV Titration 600 Amount Lactated Ringers 1,000 ml 600 @ 75 mls/hr IV .[id number] [facility] Rx#:[id number] Oral 480 Output: Drainage 60 Left Hip 60 Urine 850 250 Estimated Blood Loss 50 Other: Voiding Method Indwelling Catheter - Exam The patient is resting comfortably in her bed. She is alert and able to answer questions. On inspection of the left hip there is an intact incisional wound VAC in place with good seal. Her drain site is also intact. The Hemovac was removed without difficulty. Her thigh is soft and compressible. Femoral nerve function is intact. Distally she is able to actively plantarflex and dorsiflex her toes. - Labs CBC & Chem 7: 10/21/22 05:41 10/21/22 05:41 Labs: Abnormal Lab Results - Last 24 Hours (Table) 10/21/22 10/21/22 Range/Units 05:41 05:41 WBC 14.7 H (3.8-10.6) k/uL Hgb 11.2 L (11.4-16.0) gm/dL Neutrophils # 11.8 H (1.3-7.7) k/uL Monocytes # 1.3 H (0-1.0) k/uL Sodium 132 L (137-145) mmol/L BUN 25 H (7-17) mg/dL Glucose 112 H (74-99) mg/dL Assessment and Plan Assessment: Postoperative day #1 status post left hip Girdlestone resection Plan: 1. Patient can weight-bear as tolerated on her left leg but should have full a ssistance and use of a walker given her baseline nonambulatory status 2. Mobilize out of bed to a chair as able 3. Leave incisional wound VAC in place 4. 2 doses postoperative antibiotics followed by low-dose doxycycline for 2 weeks 5. Discontinue Aguilar catheter when able 6. Appreciate internal medicine preoperative medical management 7. Dispo: The patient will likely need to remain in the hospital over the weekend until she can discharge back to her skilled nursing.
[2022-10-21] MEDS: MULTIVITAMINS, THERA 1 EACH TAB PO SCH (19:54)
[2022-10-21] MEDS: PRAVASTATIN SODIUM 20 MG TAB PO SCH (19:54)
--- NOTE | 2022-10-21 19:56 | P.PN ---
Progress Note - Text Progress Note Date: 10/21/22 - Chief Complaint Left hip pain Hospital course This is a pleasant 77-year-old patient, being followed by Dr. Haque currently at [facility]. Patient is wheelchair-bound. Patient workup revealed severe breakdown of the left acetabulum with severe osteopenic changes. For pain relief patient underwent Girdlestone hip resection. Currently has a Hemovac in place. Laying in bed. Breathing is stable. At her baseline uses a wheelchair.non-ambulatory October 21: Reclining bed. Tired. Some pain. Eating 50-75%. No nausea vomiting. Active Medications Hydrocodone Bitart/Acetaminophen (Hydrocodone/Apap 5-325mg 1 Each Tab) 1 each PO Q6HR PRN PRN Reason: Pain Scale 1 to 5 Hydrocodone Bitart/Acetaminophen (Hydrocodone/Apap 5-325mg 1 Each Tab) 2 each PO Q6HR PRN PRN Reason: Pain Scale 6 to 10 Last Admin: 10/21/22 09:51 Dose: 2 each Aspirin (Aspirin 81 Mg) 81 mg PO BID [facility] Last Admin: 10/21/22 08:04 Dose: 81 mg Cholecalciferol (Cholecalciferol 25 Mcg (1000 Iu) Tablet) 50 mcg PO DAILY [facility] Last Admin: 10/21/22 08:04 Dose: 50 mcg Famotidine (Famotidine 20 Mg Tab) 20 mg PO DAILY [facility] Last Admin: 10/21/22 08:04 Dose: 20 mg Hydromorphone HCl (Hydromorphone 0.5 Mg/0.5 Ml Syringe) 0.125 mg IVP Q3HR PRN PRN Reason: Pain Scale 1 to 3 Hydromorphone HCl (Hydromorphone 0.5 Mg/0.5 Ml Syringe) 0.5 mg IVP Q3HR PRN PRN Reason: Pain Scale 7 to 10 Last Admin: 10/21/22 17:46 Dose: 0.5 mg Hydromorphone HCl (Hydromorphone 0.5 Mg/0.5 Ml Syringe) 0.25 mg IVP Q3HR PRN PRN Reason: Pain Scale 4 to 6 Hydroxyzine Pamoate (Hydroxyzine Pamoate 25 Mg Cap) 25 mg PO Q4HR PRN PRN Reason: Nausea, Anxiety, Pain Control Lactated Ringer's (Lactated Ringers) 1,000 mls @ 20 mls/hr IV .Q24H [facility] Last Admin: 10/21/22 08:05 Dose: Not Given Lactated Ringer's (Lactated Ringers) 1,000 mls @ 75 mls/hr IV .[id number] [facility] Last Admin: 10/21/22 05:07 Dose: 75 mls/hr Metoprolol Succinate (Metoprolol Succinate (Er) 25 Mg Tab.Er.24h) 12.5 mg PO [facility] Last Admin: 10/21/22 08:04 Dose: 12.5 mg Multivitamins (Multivitamins, Thera 1 Each Tab) 1 each PO [facility] Last Admin: 10/20/22 20:13 Dose: 1 each Naloxone HCl (Naloxone 0.4 Mg/Ml 1 Ml Vial) 0.2 mg IV Q2M PRN PRN Reason: Opioid Reversal Ondansetron HCl (Ondansetron 4 Mg/2 Ml Vial) 4 mg IVP DAILY PRN PRN Reason: Nausea And Vomiting Pravastatin Sodium (Pravastatin Sodium 20 Mg Tab) 20 mg PO [facility] Last Admin: 10/20/22 20:13 Dose: 20 mg Sertraline HCl (Sertraline 50 Mg Tab) 50 mg PO [facility] Last Admin: 10/21/22 08:04 Dose: 50 mg Past medical history to include: COPD, CHF, GERD, hypertension, hyperlipidemia, osteoarthritis, uses a wheelchair. Hiatal hernia. Urinary stress incontinence. Iron deficiency, vitamin D deficiency, COVID July 2020, CAD with stent Social history: Nonsmoker. No alcohol. Physical examination: VITAL SIGNS: 98.4, 73, 17, 104/67, 92% on 2 L GENERAL: BMI 23.9, reclining in bed EYES: Pupils equal. Conjunctiva normal. HEENT: External appearance of nose and ears normal, oral cavity grossly normal. NECK: JVD not raised; masses not palpable. HEART: First and second heart sounds are normal; no edema. LUNGS: Respiratory rate normal; clear to auscultation. ABDOMEN: Soft, nontender, liver spleen not palpable, no masses palpable. PSYCH: Alert and oriented x3; mood and affect normal. MUSCULOSKELETAL:No Clubbing/cyanosis;muscles-grossly intact. OA. Left hip with a dressing and Hemovac in place. INVESTIGATIONS, reviewed in the clinical context: October 21: White count 14.7 hemoglobin 11.2 platelets with 63 potassium 4.9 creatinine 0.78 10/18/2022: White count 9.3 hemoglobin 14.2 platelets 306 potassium 5.1 BUN 18.8 creatinine 0.6 Assessment and plan: -Girdlestone hip resection for pain relief. Patient has rather destroyed left S2 below with severe osteopenic changes. Currently has a Hemovac in place -Acute postprocedure blood loss anemia Start ferrous sulfate -Primary osteoarthritis Tylenol as needed -GERD Omeprazole -CAD with history of stent Toprol-XL 12.5 mg a day. Aspirin -Hyperlipidemia Pravachol 20 mg daily at bedtime -Depression Zoloft 50 mg a day Continue current medications. Add ferrous sulfate Thank you, Dr. Cohn
[2022-10-21] MEDS: FERROUS SULFATE 325 MG TAB PO SCH (22:24)
[2022-10-22] MEDS: HYDROmorphone 0.5 MG/0.5 ML SYRINGE IVP PRN ×4 (02:50→20:57)
[2022-10-22] MEDS: FERROUS SULFATE 325 MG TAB PO SCH ×2 (05:49→17:10)
[2022-10-22 06:06] LABS: Glucose,Whole Blood 98 mg/dL (70-110)
[2022-10-22] MEDS: LACTATED RINGERS 1,000 ML IV SCH ×3 (06:40→17:10)
--- NOTE | 2022-10-22 07:03 | P.PN ---
Subjective Progress Note Date: 10/22/22 Principal diagnosis: Status post left Girdlestone resection This is a 77 year-old female post left hip Girdlestone resection. This is post- op day 2. The patient was evaluated at the bedside today. The patient denies nausea, vomiting, abdominal pain, shortness of breath, and chest pain this morning. She states her pain is controlled at this time. The patient has been up to the recliner chair yesterday. Objective - Vital Signs Vital signs: Vital Signs Temp 98.0 F 10/22/22 01:02 Pulse 74 10/22/22 01:02 Resp 19 10/22/22 01:02 BP 107/68 10/22/22 01:02 Pulse Ox 96 10/22/22 01:02 FiO2 Intake & Output 10/21/22 10/21/22 10/22/22 06:59 18:59 06:59 Intake Total 1080 Output Total 055 002 9675 Balance 770 -800 -1500 Intake: Intake, IV Titration 600 Amount Lactated Ringers 1,000 ml 600 @ 75 mls/hr IV .[id number] [facility] Rx#:[id number] Oral 480 Output: Drainage 60 Left Hip 60 Urine 195 348 6708 Other: Voiding Method Indwelling Catheter Indwelling Catheter - Exam The patient does not appear in acute distress. Alert and orientated x3. Prevana wound VAC is intact and functioning well. Drain dressing is clean dry and intact. Calf is soft and nontender. Good foot and ankle motion without difficulty. Sensation and circulatory status is intact. - Labs CBC & Chem 7: 10/21/22 05:41 10/21/22 05:41 Assessment and Plan (1) Status post Girdlestone procedure Current Visit: Yes Status: Acute Code(s): Z98.890 - OTHER SPECIFIED POSTPROCEDURAL STATES SNOMED Code(s): 866240999 Plan: 1. Continue pain control 2. Anticoagulation with Aspirin 81 mg 3. Continue physical therapy and ambulation. Weightbearing as tolerated with a full assist and a walker. 4. Continue Prevana incisional wound vac 5. Anticipate discharge back to [facility] likely tomorrow or Sunday.
[2022-10-22] MEDS: METOPROLOL SUCCINATE (ER) 25 MG TAB.ER.24H PO SCH (07:44)
[2022-10-22] MEDS: HYDROcodone/APAP 5-325MG 1 EACH TAB PO PRN ×2 (07:44→17:17)
[2022-10-22] MEDS: SERTRALINE 50 MG TAB PO SCH (07:44)
[2022-10-22] MEDS: FAMOTIDINE 20 MG TAB PO SCH (07:44)
[2022-10-22] MEDS: ASPIRIN 81 MG PO SCH ×2 (07:44→20:58)
[2022-10-22] MEDS: CHOLECALCIFEROL 25 MCG (1000 IU) TABLET PO SCH (07:44)
--- NOTE | 2022-10-22 16:44 | P.PN ---
Progress Note - Text Progress Note Date: 10/22/22 - Chief Complaint Left hip pain Hospital course This is a pleasant 77-year-old patient, being followed by Dr. Haque currently at [facility]. Patient is wheelchair-bound. Patient workup revealed severe breakdown of the left acetabulum with severe osteopenic changes. For pain relief patient underwent Girdlestone hip resection. Currently has a Hemovac in place. Laying in bed. Breathing is stable. At her baseline uses a wheelchair.non-ambulatory October 21: Reclining bed. Tired. Some pain. Eating 50-75%. No nausea vomiting. October 22: Reclining bed. Some pain is present. Eating about 50%. Breathing stable. Was up in a recliner. Yesterday. Has Provena incision wound VAC. Active Medications Hydrocodone Bitart/Acetaminophen (Hydrocodone/Apap 5-325mg 1 Each Tab) 1 each PO Q6HR PRN PRN Reason: Pain Scale 1 to 5 Hydrocodone Bitart/Acetaminophen (Hydrocodone/Apap 5-325mg 1 Each Tab) 2 each PO Q6HR PRN PRN Reason: Pain Scale 6 to 10 Last Admin: 10/22/22 07:44 Dose: 2 each Aspirin (Aspirin 81 Mg) 81 mg PO BID [facility] Last Admin: 10/22/22 07:44 Dose: 81 mg Cholecalciferol (Cholecalciferol 25 Mcg (1000 Iu) Tablet) 50 mcg PO DAILY [facility] Last Admin: 10/22/22 07:44 Dose: 50 mcg Famotidine (Famotidine 20 Mg Tab) 20 mg PO DAILY [facility] Last Admin: 10/22/22 07:44 Dose: 20 mg Ferrous Sulfate (Ferrous Sulfate 325 Mg Tab) 325 mg PO BID-W/MEALS [facility] Last Admin: 10/22/22 05:49 Dose: 325 mg Hydromorphone HCl (Hydromorphone 0.5 Mg/0.5 Ml Syringe) 0.125 mg IVP Q3HR PRN PRN Reason: Pain Scale 1 to 3 Hydromorphone HCl (Hydromorphone 0.5 Mg/0.5 Ml Syringe) 0.5 mg IVP Q3HR PRN PRN Reason: Pain Scale 7 to 10 Last Admin: 10/22/22 10:42 Dose: 0.5 mg Hydromorphone HCl (Hydromorphone 0.5 Mg/0.5 Ml Syringe) 0.25 mg IVP Q3HR PRN PRN Reason: Pain Scale 4 to 6 Hydroxyzine Pamoate (Hydroxyzine Pamoate 25 Mg Cap) 25 mg PO Q4HR PRN PRN Reason: Nausea, Anxiety, Pain Control Lactated Ringer's (Lactated Ringers) 1,000 mls @ 20 mls/hr IV .Q24H [facility] Last Admin: 10/22/22 07:33 Dose: Not Given Lactated Ringer's (Lactated Ringers) 1,000 mls @ 75 mls/hr IV .[id number] [facility] Last Admin: 10/22/22 06:40 Dose: Not Given Metoprolol Succinate (Metoprolol Succinate (Er) 25 Mg Tab.Er.24h) 12.5 mg PO [facility] Last Admin: 10/22/22 07:44 Dose: 12.5 mg Multivitamins (Multivitamins, Thera 1 Each Tab) 1 each PO [facility] Last Admin: 10/21/22 19:54 Dose: 1 each Naloxone HCl (Naloxone 0.4 Mg/Ml 1 Ml Vial) 0.2 mg IV Q2M PRN PRN Reason: Opioid Reversal Ondansetron HCl (Ondansetron 4 Mg/2 Ml Vial) 4 mg IVP DAILY PRN PRN Reason: Nausea And Vomiting Pravastatin Sodium (Pravastatin Sodium 20 Mg Tab) 20 mg PO [facility] Last Admin: 10/21/22 19:54 Dose: 20 mg Sertraline HCl (Sertraline 50 Mg Tab) 50 mg PO [facility] Last Admin: 10/22/22 07:44 Dose: 50 mg Past medical history to include: COPD, CHF, GERD, hypertension, hyperlipidemia, osteoarthritis, uses a wheelchair. Hiatal hernia. Urinary stress incontinence. Iron deficiency, vitamin D deficiency, COVID July 2020, CAD with stent Social history: Nonsmoker. No alcohol. Physical examination: VITAL SIGNS: 97.9, 64, 17, 124/72, 94% on 2 L GENERAL: BMI 23.9, reclining in bed EYES: Pupils equal. Conjunctiva normal. HEENT: External appearance of nose and ears normal, oral cavity grossly normal. NECK: JVD not raised; masses not palpable. HEART: First and second heart sounds are normal; no edema. LUNGS: Respiratory rate normal; clear to auscultation. ABDOMEN: Soft, nontender, liver spleen not palpable, no masses palpable. PSYCH: Alert and oriented x3; mood and affect normal. MUSCULOSKELETAL:No Clubbing/cyanosis;muscles-grossly intact. OA. Left hip: Provena wound VAC INVESTIGATIONS, reviewed in the clinical context: October 21: White count 14.7 hemoglobin 11.2 platelets with 63 potassium 4.9 creatinine 0.78 10/18/2022: White count 9.3 hemoglobin 14.2 platelets 306 potassium 5.1 BUN 18.8 creatinine 0.6 Assessment and plan: -Girdlestone hip resection for pain relief. Patient has rather destroyed left S2 below with severe osteopenic changes. Had a Hemovac in place. Also Provena wound VAC -Acute postprocedure blood loss anemia ferrous sulfate -Primary osteoarthritis Tylenol as needed -GERD Omeprazole -CAD with history of stent Toprol-XL 12.5 mg a day. Aspirin -Hyperlipidemia Pravachol 20 mg daily at bedtime -Depression Zoloft 50 mg a day Discussed with patient. Stable. Continue current medications. Thank you, Dr. Cohn
[2022-10-22] MEDS: MULTIVITAMINS, THERA 1 EACH TAB PO SCH (20:58)
[2022-10-22] MEDS: PRAVASTATIN SODIUM 20 MG TAB PO SCH (20:58)
[2022-10-22] MEDS: hydrOXYzine pamoate 25 MG CAP PO PRN (21:54)
[2022-10-23] MEDS: HYDROcodone/APAP 5-325MG 1 EACH TAB PO PRN ×3 (00:12→14:30)
[2022-10-23 05:08] LABS: Basophils % (A) 0 %; Eosinophils # (A) 0.5 k/uL (0-0.7); Eosinophils % (A) 5 %; HCT 32.8 % (34.0-46.0); HGB 10.6 gm/dL (11.4-16.0); Lymphocytes % (A) 20 %; MCH 29.2 pg (25.0-35.0); MCHC 32.4 g/dL (31.0-37.0); MCV 90.2 fL (80.0-100.0); Mean Platelet Volume 9.4; Monocytes # (A) 1.2 k/uL (0-1.0); Monocytes % (A) 12 %; Neutrophils # (A) 6.1 k/uL (1.3-7.7); Neutrophils % (A) 61 %; Platelet Count 229 k/uL (150-450); RBC 3.63 m/uL (3.80-5.40); RDW 14.2 % (11.5-15.5)
[2022-10-23] MEDS: hydrOXYzine pamoate 25 MG CAP PO PRN (05:49)
[2022-10-23] MEDS: FERROUS SULFATE 325 MG TAB PO SCH (05:50)
[2022-10-23 07:35] VITALS: PULSE 74
[2022-10-23] MEDS: SERTRALINE 50 MG TAB PO SCH (07:53)
[2022-10-23] MEDS: METOPROLOL SUCCINATE (ER) 25 MG TAB.ER.24H PO SCH (07:53)
[2022-10-23] MEDS: FAMOTIDINE 20 MG TAB PO SCH (07:53)
[2022-10-23] MEDS: ASPIRIN 81 MG PO SCH (07:53)
[2022-10-23] MEDS: CHOLECALCIFEROL 25 MCG (1000 IU) TABLET PO SCH (07:53)
--- NOTE | 2022-10-23 08:40 | P.DS ---
Providers Date of admission: 10/20/22 07:28 Expected date of discharge: 10/23/22 Attending physician: Paddy Cohn Consults: 10/20/22 12:15 Consult Physician Routine Consulting Provider: Isael Malone Consult Reason/Comments: medical management Do you want consulting provider notified?: Yes Primary care physician: [facility] Course: This is a 77-year-old female who has been followed in our office by Dr. Cohn for continued complaints of left hip pain due to chronic hip fracture dislocation. Treatment options were discussed, and patient elected to undergo a left hip Girdlestone resection. Patient was seen pre-operatively by Dr. Haque, Dr. Rubalcava and cleared for surgery. Patient underwent a left hip Girdlestone resection on 10/20/[address] Cohn. The procedure was performed without complication or sequelae. The patient is doing fairly well postoperatively. Vital signs and labs are stable on postoperative day #3. Patient was examined bedside this morning with Dr. Cohn. Patient states hip pain is controlled at this time. Patient has no new complaints this morning. On examination, the patient is sitting up in bed in no apparent distress. She is alert and answers questions appropriately. On inspection of the left hip, there is a Prevena wound vac in place that appears to have a good seal. Motor and sensory function is intact of the left lower extremity. Femoral nerve function intact. The dorsalis pedis pulse is easily palpable, the left lower extremity is warm and well perfused with brisk capillary refill. Calf is soft and non-tender to palpation. Patient is discharged back to [facility] today, pending medical clearance. Patient will follow-up in the office at [facility] on 10/26/22 for wound vac removal. Please see med rec for accurate list of discharge medication. Plan - Discharge Summary Discharge Rx Participant: No New Discharge Prescriptions: New Omeprazole 40 mg PO DAILY 30 Days #30 cap HYDROcodone/APAP 5-325MG [Harold 5-325] 1 tab PO Q6HR PRN 7 Days #28 tab PRN Reason: Pain Doxycycline Monohydrate 100 mg PO BID #28 cap Aspirin 81 mg PO BID 30 Days #60 tab Docusate [Colace] 100 mg PO BID #60 capsule No Action Aspirin 81 mg PO DAILY #90 tab Pravastatin Sodium [Pravachol] 20 mg PO HS #90 tab Metoprolol Succinate (ER) [Toprol Xl] 12.5 mg PO QAM Cholecalciferol [Vitamin D3 (25 Mcg = 1000 Iu)] 50 mcg PO DAILY Loperamide HCl [Loperamide] 2 mg PO Q8H PRN PRN Reason: Diarrhea Acetaminophen Tab [Tylenol] 650 mg PO Q6H PRN PRN Reason: Pain Sertraline [Zoloft] 50 mg PO QAM Multivitamins, Thera [Multivitamin (formulary)] 1 tab PO HS Famotidine [Pepcid] 20 mg PO BID Discharge Medication List Aspirin 81 mg PO DAILY #90 tab 12/21/21 [Rx] Pravastatin Sodium [Pravachol] 20 mg PO HS #90 tab 12/21/21 [Rx] Acetaminophen Tab [Tylenol] 650 mg PO Q6H PRN 03/29/22 [History] Cholecalciferol [Vitamin D3 (25 Mcg = 1000 Iu)] 50 mcg PO DAILY 03/29/22 [History] Loperamide HCl [Loperamide] 2 mg PO Q8H PRN 03/29/22 [History] Metoprolol Succinate (ER) [Toprol Xl] 12.5 mg PO QAM 03/29/22 [History] Multivitamins, Thera [Multivitamin (formulary)] 1 tab PO HS 03/29/22 [History] Sertraline [Zoloft] 50 mg PO QAM 03/29/22 [History] Famotidine [Pepcid] 20 mg PO BID 09/25/22 [History] Aspirin 81 mg PO BID 30 Days #60 tab 10/20/22 [Rx] Docusate [Colace] 100 mg PO BID #60 capsule 10/20/22 [Rx] Doxycycline Monohydrate 100 mg PO BID #28 cap 10/20/22 [Rx] HYDROcodone/APAP 5-325MG [Harold 5-325] 1 tab PO Q6HR PRN 7 Days #28 tab 10/20/22 [Rx] Omeprazole 40 mg PO DAILY 30 Days #30 cap 10/20/22 [Rx] Follow up Appointment(s)/Referral(s): Reyna Abbott, PAC [PHYSIC[facility]] - 1 Week Activity/Diet/Wound Care/Special Instructions: Weight bear to tolerance on operative extremity with a walker, with assistance only. Fall precautions. Leave Prevena wound vac in place until follow-up in the office. May take pain mediations as prescribed. Take aspirin 81mg twice a day x 4 weeks for blood clot prevention. Take antibiotics as prescribed. Follow-up in the office at [facility] on 10/26/22. Call the office with any questions or concerns, Discharge Disposition: TRANSFER TO SNF/ECF
[2022-10-23] MEDS: HYDROmorphone 0.5 MG/0.5 ML SYRINGE IVP PRN (10:51)
[2022-10-23 13:44] VITALS: BP 124/82; RESP 17; TEMP 98.3
--- NOTE | 2022-10-23 14:04 | P.PN ---
Subjective Progress Note Date: 10/23/22 This is a pleasant 77-year-old patient, being followed by Dr. Haque currently at [facility]. Patient is wheelchair-bound. Patient workup revealed severe breakdown of the left acetabulum with severe osteopenic changes. For pain relief patient underwent Girdlestone hip resection. Currently has a Hemovac in place. Laying in bed. Breathing is stable. At her baseline uses a wheelchair.non-ambulatory October 21: Reclining bed. Tired. Some pain. Eating 50-75%. No nausea vomiting. October 22: Reclining bed. Some pain is present. Eating about 50%. Breathing stable. Was up in a recliner. Yesterday. Has Provena incision wound VAC. 10/23. Patient seen and examined. No acute issues overnight. REVIEW OF SYSTEMS: CONSTITUTIONAL: No fever, no malaise,. CARDIOVASCULAR: No chest pain, no palpitations, no syncope. PULMONARY: No shortness of breath, no cough, GASTROINTESTINAL: No diarrhea, no nausea, no vomiting, no abdominal pain. NEUROLOGICAL: No headaches, no weakness, PHYSICAL EXAMINATION: GENERAL: The patient is alert and oriented x3, not in any acute distress. Well developed, well nourished. HEENT: Pupils are round and equally reacting to light. EOMI. No scleral icterus. No conjunctival pallor. Normocephalic, atraumatic. No pharyngeal erythema. No thyromegaly. CARDIOVASCULAR: S1 and S2 present. No murmurs, rubs, or gallops. PULMONARY: Chest is clear to auscultation, no wheezing or crackles. ABDOMEN: Soft, nontender, nondistended, normoactive bowel sounds. No palpable organomegaly. MUSCULOSKELETAL: No joint swelling or deformity. Left hip surgical incision seen EXTREMITIES: No cyanosis, clubbing, or pedal edema. NEUROLOGICAL: Gross neurological examination did not reveal any focal deficits. SKIN: No rashes. Assessment and plan -Girdlestone hip resection for pain relief. Patient has rather destroyed left S2 below with severe osteopenic changes. Continue pain management per orthopedics Continue DVT prophylaxis per orthopedics -Acute postprocedure blood loss anemia ferrous sulfate -Primary osteoarthritis Tylenol as needed -GERD Omeprazole -CAD with history of stent Toprol-XL 12.5 mg a day. Aspirin -Hyperlipidemia Pravachol 20 mg daily at bedtime -Depression Zoloft 50 mg a day Labs and medication were reviewed.. Continue same treatment. Continue with symptomatic treatment. Resume home medication. Monitor labs and vitals. DVT and GI prophylaxis. Further recommendations as per clinical course of the patient Objective - Vital Signs Vital signs: Vital Signs Temp 98.8 F 10/23/22 07:01 Pulse 74 10/23/22 08:00 Resp 16 10/23/22 08:00 BP 115/74 10/23/22 07:01 Pulse Ox 99 10/23/22 07:01 FiO2 Intake & Output 10/22/22 10/23/22 10/23/22 18:59 06:59 18:59 Output Total 1000 400 Balance -1000 -400 Output: Urine 1000 400 Other: Voiding Method Indwelling Catheter Indwelling Catheter - Labs CBC & Chem 7: 10/23/22 03:40 10/21/22 05:41 Labs: Abnormal Lab Results - Last 24 Hours (Table) 10/23/22 Range/Units 03:40 RBC 3.63 L (3.80-5.40) m/uL Hgb 10.6 L (11.4-16.0) gm/dL Hct 32.8 L (34.0-46.0) % Monocytes # 1.2 H (0-1.0) k/uL
== END 2022-10-23 15:06 | DRG 481 ==
LOC: 2ORMAIN 07:28 → EDSTATUS 10:00 → 4SSUR 14:12
PROVIDERS: ADMIT Orthopaedic Surgery; ATTEND Orthopaedic Surgery
PROC: 0QU70JZ Supplement Left Upper Femur with Synthetic Substitute, Open Approach (ICD-10-PCS; principal; 2022-10-20 10:00)
PROC: 0QB70ZZ Excision of Left Upper Femur, Open Approach (ICD-10-PCS; principal; 2022-10-20 10:00)
DX: S72.002A Fracture of unspecified part of neck of left femur, initial encounter for closed fracture (principal); D62 Acute posthemorrhagic anemia; M16.12 Unilateral primary osteoarthritis, left hip; B35.6 Tinea cruris; M85.88 Other specified disorders of bone density and structure, other site; R29.6 Repeated falls; J44.9 Chronic obstructive pulmonary disease, unspecified; I11.0 Hypertensive heart disease with heart failure; I50.9 Heart failure, unspecified; E78.5 Hyperlipidemia, unspecified; M19.90 Unspecified osteoarthritis, unspecified site; K44.9 Diaphragmatic hernia without obstruction or gangrene; N39.3 Stress incontinence (female) (male); E61.1 Iron deficiency; I25.10 Atherosclerotic heart disease of native coronary artery without angina pectoris; K21.9 Gastro-esophageal reflux disease without esophagitis; F32.A Depression, unspecified; Z95.5 Presence of coronary angioplasty implant and graft; Z86.16 Personal history of COVID-19; Z88.0 Allergy status to penicillin; Z88.8 Allergy status to other drugs, medicaments and biological substances; Z91.81 History of falling; Z99.3 Dependence on wheelchair; Z87.01 Personal history of pneumonia (recurrent); Z87.440 Personal history of urinary (tract) infections
CPT/HCPCS: 73501; 80048; 85025; 86850; 86870; 86880; 86900; 86901; 86902

== ENCOUNTER → 2024-07-31 | Outpatient (CLI) | payer OTHER ==
--- NOTE | 2024-07-31 10:33 | US ---
EXAMINATION TYPE: US transvaginal DATE OF EXAM: 07/31/2024 COMPARISON: NONE CLINICAL INDICATION: Female, 79 years old with history of N76.1 SUBACUTE AND CHRONIC VAGINITIS; Chron ic vaginitis x 2 years. TECHNIQUE: Transvaginal (TV). Doppler imaging: Not performed. FINDINGS: EXAM MEASUREMENTS: Uterus: 4.5 x 2.5 x 3.2 cm Endometrial Stripe: .8 cm 1. Uterus: Retroverted There are calcifications with posterior shadowing within the cervix. Some igiugig rine calcification may also be present which may be underlying fibroid 2. Endometrium: Thickened. 3. Right Ovary: Obscured by overlying bowel gas 4. Left Ovary: Obscured by overlying bowel gas 5. Bilateral Adnexa: wnl 6. Posterior cul-de-sac: wnl IMPRESSION: 1. Thickened endometrium. 2. Calcifications may be present. Underlying fibroids could be considered. 3. If additional imaging would be of benefit, MRI could be performed O-RADS 2021 [email or web address] [facility], , 07/31/2024 10:30 AM
== END | disposition home or self-care (01) ==
LOC: RADUSWWP 09:39
PROVIDERS: ATTEND Family Medicine
DX: N76.1 Subacute and chronic vaginitis (principal); R93.89 Abnormal findings on diagnostic imaging of other specified body structures
CPT/HCPCS: 76830